=== PATIENT | female | born 1935 | race Caucasian/White ===

== ENCOUNTER → 2016-03-21 | Outpatient (CLI) | payer OTHER ==
[~2016-03-21] MED LIST: ASPI81CH2 PO; CARB25TA12 PO; CARB25TA16 PO; CARV6.25 PO; CEFD1CAP14 PO; CEFU500T16 PO; CLOP1TAB15 PO; CRFUDL PO; DOCU-94 PO; DOXY-300 PO; DOXY100C76 PO; FOLI1TAB7 PO; HMLNPUC SQ; INSU100I SC; ISR20 PO; KFL500 PO; LPT/40 PO; LYR50 PO; NVLGI/PEN SQ; ONDA4TAB46 PO; OXYC-653 PO; OXYC20TA50 PO; PANT40TA PO; PHEN-1042 PO; POLY335019 PO; PROC1TAB5 PO; RXC/5 PO; SNM/25100 PO; VENL1CAP92 PO
--- NOTE | 2016-03-21 15:27 | DIAGNOSTIC IMAGING REPORT ---
ULTRASOUND BILATERAL LOWER EXTREMITY ARTERIAL; ANKLE-BRACHIAL INDICES CLINICAL HISTORY: Bilateral leg pain. Diminished pulses. COMPARISON STUDY: No priors. TECHNIQUE: Real-time, grayscale, and color Doppler sonography of the arteries of the right and left lower extremities performed from the inguinal crease to the foot. Ankle-brachial indices are calculated. FINDINGS: Ankle-brachial indices: Right brachial pressure measures 130. Pressures in the right posterior tibial artery measure 122 for an RICHA of 0.88 and pressures in the right dorsalis pedis artery measure 156 for an RICHA of 1.12. Left brachial pressure measures 139. Pressures in the left posterior tibial artery measure 125 for an RICHA of 0.90, and pressures in the left dorsalis pedis artery measure 146 for an RICHA of 1.05. Right lower extremity: There is atherosclerotic plaque and irregularity seen throughout the arteries of the right lower extremity. There are triphasic waveforms in the right common femoral artery with velocities measuring up to 174 cm/s. The profunda femoris artery is patent with velocities measuring up to 97 cm/s. There are biphasic arterial waveforms throughout the right superficial femoral artery. Velocities proximally measure up to 121 cm/s. Focally elevated velocities are seen in the midportion measuring up to 196 cm/s. Velocities in the distal right superficial femoral artery measure up to 117 cm/s. Advanced atherosclerotic plaque is seen in the popliteal artery with velocities measuring up to 104 cm/s. There is three-vessel runoff to the foot. No elevated velocities are identified in the calf. The dorsalis pedis artery is patent with velocities measuring up to 78 cm/s. Left lower extremity: Atherosclerotic plaque and irregularity is seen throughout the arteries of the left lower extremity. There are triphasic waveforms in the left common femoral artery with velocities measuring up to 202 cm/s. There are biphasic waveforms seen throughout the superficial femoral artery with velocities measuring up to 152 cm/s. There are monophasic to biphasic waveforms in the popliteal artery with velocities measuring up to 106 cm/s. There is two-vessel runoff to the foot. There may be occlusion of the distal left peroneal artery. The left dorsalis pedis artery is patent with velocities measuring up to 55 cm/s. IMPRESSION: 1. There are focally elevated velocities within the mid right superficial femoral artery and within the left common femoral artery as above which may represent foci of stenosis. 2. Suspect occlusion of the distal left peroneal artery. 3. Ankle-brachial indices as above. Dictated: 03/21/2016 2:43 PM Transcribed: 03/21/2016 3:26 PM [facility] Electronically signed by: Mario Thomas M.D. 03/21/2016 3:29 PM Dictated Date/Time: 03/21/2016 2:43 PM
== END | disposition home or self-care (01) ==
LOC: C.ULTR 12:23
PROVIDERS: ATTEND Family Medicine
DX: M79.604 Pain in right leg (principal); M79.605 Pain in left leg; R94.39 Abnormal result of other cardiovascular function study

== ENCOUNTER → 2016-03-28 | Outpatient (CLI) | payer OTHER | END | disposition home or self-care (01) | LOC: C.LABSPEC 17:42 | PROVIDERS: ATTEND Urology | DX: Z87.440 Personal history of urinary (tract) infections (principal); R33.9 Retention of urine, unspecified ==

== ENCOUNTER → 2016-05-09 | Outpatient (CLI) | payer OTHER ==
[~2016-05-09] MED LIST changes: -OXYC-653 PO; +OXYC-739 PO
--- NOTE | 2016-05-09 11:45 | DIAGNOSTIC IMAGING REPORT ---
RENAL ULTRASOUND HISTORY: Z87.440 History of UTIR33.9 Retention of [id number] hydronephrosis. COMPARISON: Abdomen and pelvis CT 02/16/2016. FINDINGS: Right kidney: 9.5 cm. Mild to moderate hydronephrosis Left kidney: 10.9 cm. Mild to moderate hydronephrosis. Bladder: No bladder wall thickening. The bilateral ureteral jets were identified. IMPRESSION: No change in the mild to moderate bilateral hydronephrosis. However, the bilateral ureteral jets are identified. Electronically signed by: Carmine Desouza M.D. 05/09/2016 11:43 AM Dictated Date/Time: 05/09/2016 11:41 AM
== END | disposition home or self-care (01) ==
LOC: C.ULTR 11:01
PROVIDERS: ATTEND Urology
DX: N13.30 Unspecified hydronephrosis (principal); R33.9 Retention of urine, unspecified; Z87.440 Personal history of urinary (tract) infections

== ENCOUNTER 2016-08-07 11:23 | Inpatient (IN) | payer OTHER ==
[~2016-08-07] VITALS: Ht 167.6 cm; Wt 95.7 kg
[~2016-08-07 11:23] MED LIST changes: -CARB25TA16 PO; -CEFD1CAP14 PO; -CEFU500T16 PO; -CLOP1TAB15 PO; -DOXY-300 PO; -DOXY100C76 PO; -INSU100I SC; -KFL500 PO; -OXYC-739 PO; -PHEN-1042 PO; -POLY335019 PO; -PROC1TAB5 PO; -RXC/5 PO; -SNM/25100 PO
[2016-08-07 11:36] VITALS: Ht 167.6 cm; Wt 95.7 kg
[2016-08-07 12:14] LABS: BASO % 0.2 %; BASO ABS # 0.03 K/uL (0-0.2); COMPLETE YES; EOS % 1.2 %; HEMATOCRIT 42.7 % (37-47); IG% 0.3 %; LYMPH % 9.3 %; LYMPH ABS # 1.35 K/uL (1.2-3.4); MEAN CELL VOLUME 87.1 fL (80-100); MEAN CORPUSCULAR HEMOGLOBIN 28.2 pg (25-34); MEAN CORPUSCULAR HGB CONC 32.3 g/dl (32-36); MEAN PLATELET VOLUME 12.2 fL (7.4-10.4); MONO % 5.7 %; NEUT % 83.3 %; PLATELET COUNT 165 K/uL (130-400); WHITE BLOOD COUNT 14.45 K/uL (4.8-10.8)
[2016-08-07 12:16] LABS: ISTAT CREATININE 1.3 mg/dl (0.6-1.3); ISTAT IONIZED CALCIUM 1.24 mmol/l (1.12-1.32)
[2016-08-07] MEDS ORDERED: MoRPHine SULFATE 10 MG/ML CARP/VIAL IV STA (12:23)
[2016-08-07] MEDS ORDERED: ONDANSETRON INJ 2 MG/ML 2 ML VIAL IV STA (12:23)
[2016-08-07 12:35] LABS: ALT/SGPT 14 U/L (12-78); AST/SGOT 26 U/L (15-37); BLOOD UREA NITROGEN 26 mg/dl (7-18); BUN/CREATININE RATIO 18.9 (10-20); CARBON DIOXIDE 29 mmol/L (21-32); CHLORIDE 103 mmol/L (98-107); GLUCOSE 101 mg/dl (70-99); POTASSIUM 4.2 mmol/L (3.5-5.1); SODIUM 139 mmol/L (136-145)
[2016-08-07 12:37] LABS: ALB/GLOB RATIO 0.8 (0.9-2); ALKALINE PHOSPHATASE 159 U/L (45-117)
[2016-08-07] MEDS ORDERED: CEFTRIAXONE SOD INJ 2000 MG in DEXTROSE 5% 50ML IV ONE (12:45)
[2016-08-07] MEDS ORDERED: HYDROmorphone INJ 1 MG/ML SYR IV STA (13:01)
[2016-08-07 14:03] LABS: URINE APPEARANCE TURBID (CLEAR); URINE BILIRUBIN NEG (NEG); URINE COLOR ORANGE; URINE EPITHELIAL CELL AUTO 20-30 /lpf (0-5); URINE NITRITE POS (NEG); UROBILINOGEN NEG (NEG); ZZURINE CULT IF INDIC CATH YES
[2016-08-07 14:07] LABS: MANUAL MICROSCOPIC REQUIRED? NO; REVIEW REQ? YES
--- NOTE | 2016-08-07 15:02 | DIAGNOSTIC IMAGING REPORT ---
(RENAL)RETROPERITON COMP HISTORY: 80-year-old female presents with acute back pain and UTI symptoms. COMPARISON: Renal ultrasound 05/09/2016, CT abdomen and pelvis 02/16/2016. TECHNIQUE Multiple real-time sonographic images of the bilateral kidneys were obtained assessing grayscale appearance and color flow. FINDINGS: The right kidney measures 11.2 x 5.9 x 6.5 cm. There is moderate hydronephrosis of the right kidney without significant change. There is a thin-walled hypoechoic cystic appearing lesion of the superior pole right kidney, 3.8 x 2.8 x 3.3 cm without internal flow. Left kidney measures 10.5 x 6.0 x 5.5 cm. Moderate appearing hydronephrosis is again seen left kidney without significant change. Urinary bladder is collapsed with Torres catheter in place. IMPRESSION: 1. Moderate appearing bilateral hydronephrosis without significant change from comparison study dated 05/09/2016. 2. Collapsed urinary bladder with Torres catheter in place. 3. 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 Electronically signed by: Marito Grimes 08/07/2016 3:01 PM Dictated Date/Time: 08/07/2016 2:51 PM
[2016-08-07] MEDS ORDERED: INSU100I SC (17:22)
[2016-08-07] MEDS ORDERED: POLY335019 PO (17:22)
[2016-08-07] MEDS ORDERED: OXYC-653 PO (17:22)
[2016-08-07] MEDS ORDERED: RXC/5 PO (17:22)
[2016-08-07] MEDS ORDERED: DOXY-300 PO (17:22)
[2016-08-07] MEDS ORDERED: ACETAMINOPHEN 325 MG TAB PO PRN (18:00)
--- NOTE | 2016-08-07 18:02 | Medical Student: [facility] ---
Med Student History & Physical Date & Time of Service: Aug 07, 2016 at 17:26 Chief Complaint: UTI Primary Care Physician: Krishna Villanueva M.D. History of Present Illness Source: patient, family (daughter ) Ms. Bess is a 80 year old female with a PMH significant for CAD w/ 6 stents, cholecystectomy, chronic UTIs, b/l hydronephrosis, colon CA, hepatocellular CA, s/p liver ablation, DM II, diabetic neuropathy, Parkinson disease, A fib, aortic stenosis, CAD, HTN, and GERD who presented with 3 days of lower back pain and UTI symptoms. The patient has had increase urinary frequency and dysuria, but no hematuria. With this increased urinary frequency, she has had increase bowel movements. Her bowel movements are of normal consistency. Additionally, she has experienced nausea over the past couple days with no vomiting and SOB. She has been able to eat and drink. According to her daughter , the patient has been taking doxycycline for UTI prophylaxis and hasn't had a UTI in 7 months. The patient denies fevers, chills, CARROLL, chest pain, abdominal pain, constipation or diarrhea. Currently her lower b/l back pain is 7/10 and she is very nauseous. On admission, the patient was afebrile, tachycardic at 110 , hypertensive at 187/89 and sating well at 93% on room air. On admission to the ER, she was given IV Zofran 4 mg, IV Dilaudid 1 mg, IV Ceftriaxone 2g, and IV morphine 6 mg. She was found to have leukocytosis of 14.45 and an AGUS with BUN of 26 and Cr 1.40 (baseline 1.1-1.2). She was also found to have elevated protein at 8.3 with low albumin/globulin of 0.8. The patient has a history of chronic UTIs and follows with the urologist Dr. Richard at [facility] [place]. A CAT scan during a hospitalization at [facility] on 02/15 for dehydration showed b/l hydronephrosis R > L and a distended bladder. Past Medical/Surgical History Medical Problems: (1) Constipation Status: Acute (2) Dehydration Status: Acute (3) Failure of outpatient treatment Status: Acute (4) Hyperglycemia Status: Acute (5) Left sided abdominal pain Status: Acute (6) Leukocytosis Status: Acute (7) Nausea Status: Acute (8) Substernal chest pain Status: Acute (9) Urinary retention Status: Acute (10) UTI (urinary tract infection) Status: Resolved (11) UTI (urinary tract infection) Status: Acute (12) Vomiting Status: Acute (13) Weakness Status: Acute Family History Father: lung disease (occupational disease - Joe ) Mother: diabetes Sibling(s): coronary artery disease Social History Smoking Status: Never Smoker Alcohol Use: none Drug Use: none Marital Status: single Housing status: lives with family Occupational Status: retired Allergies Coded Allergies: Iodinated Diagnostic Agents (Verified Allergy, Intermediate, IV CONTRAST- HIVES, 02/16/16) Azithromycin (Verified Allergy, Mild, dizzy, nauseous (per patient), ) from allergy list supplied by PCP Dar Villanueva in [place] Ciprofloxacin (Verified Allergy, Unknown, unknown, 02/16/16) from allergy list supplied by PCP Dar Villanueva in [place] Nitrofurantoin (Verified Allergy, Unknown, unknown, 02/16/16) from allergy list supplied by PCP Dar Villanueva in [place] Sulfamethoxazole w/Trimethoprim (Verified Allergy, Unknown, patient unsure , 02/16/16) from allergy list supplied by [facility] Villanueva in [place] Acarbose (Verified Adverse Reaction, Mild, GI SYMPTOMS, 02/16/16) from allergy list supplied by [facility] Villanueva in [place] Metformin (Verified Adverse Reaction, Mild, GI SYMPTOMS, 02/16/16) from allergy list supplied by PCP Dar Villanueva in [place] Penicillins (Verified Adverse Reaction, Mild, dizzy, nausous (per patient ) tolerated zosyn [id number], 02/16/16) from allergy list supplied by PCP Dar Villanueva in [place] Troglitazone (Verified Adverse Reaction, Mild, GI SYMPTOMS, 02/16/16) from allergy list supplied by PCP Dar Villanueva in [place] Medications Aspirin (Aspirin), 81 MG PO QAM Atorvastatin (Lipitor), 40 MG PO DAILY Carbidopa/Levodopa (Sinemet 25MG/100MG), 2 TABS PO QID Carvedilol (Coreg), 6.25 MG PO AMPM Docusate Sodium (Colace), 100 MG PO BID Doxycycline (Monohydrate) (Doxycycline), 100 MG PO DAILY Folic Acid (Folvite), 1 MG PO QAM Insulin Human NPH (Humulin N), 24 UNITS SQ QAM Insulin Human NPH (Humulin N), 24 UNITS SQ QPM Insulin Lispro (Human) (Humalog), 4 UNITS SC AMPM Isosorbide Dinitrate (Isordil), 20 MG PO BID@0700,1200 Oxycodone HCl (Oxycodone HCl ER), 20 MG PO BID Oxycodone HCl (Oxycodone HCl), 5 MG PO Q6 PRN for Pain Pantoprazole (Protonix), 40 MG PO QAM Polyethylene Glycol 3350 (Miralax), 17 GM PO DAILY Pregabalin (Lyrica), 100 MG PO BID Sucralfate (Sucralfate), 1 GM PO ACHS Venlafaxine Hcl (Effexor Xr), 1 CAP PO QAM Review of Systems Constitutional: No fever, No chills Eyes: No worsening of vision ENT: No hearing loss Respiratory: + shortness of breath, No cough, No sputum Cardiovascular: No chest pain, No edema, No palpitations Abdomen: + nausea, No pain, No vomiting, No diarrhea, No constipation Genitourinary - Female: + dysuria, + urinary frequency, + hematuria, + problem reported (CVA tenderness b/l ) Neurologic: No memory loss Integumentary: No rash, No itch Physical Exam Vital Signs (24 Hours) Date Time Temp Pulse Resp B/P (MAP) Pulse Ox O2 Delivery O2 Flow Rate FiO2 08/07/16 17:03 100 14 158/65 98 Room Air 08/07/16 14:50 107 18 175/87 94 Nasal Cannula 4.0 08/07/16 13:31 109 18 195/131 96 Room Air 08/07/16 12:10 101 08/07/16 11:36 37.0 110 20 187/89 93 Room Air General Appearance: WD/WN, + mild distress Head: normocephalic, atraumatic Eyes: normal inspection, PERRL, EOMI, sclerae normal ENT: normal ENT inspection, hearing grossly normal Neck: supple, no adenopathy, thyroid normal Respiratory/Chest: lungs clear, normal breath sounds, no respiratory distress Cardiovascular: regular rate, rhythm, no edema, no gallop, normal peripheral pulses, + systolic murmur (2/6 ejection systolic murmur heard best RUSB with no radiation to carotids ) Abdomen/GI: normal bowel sounds, non tender, soft, no organomegaly Genitourinary - Female: + pertinent finding (no suprapubic tenderness ) Back: + left CVA tenderness, + right CVA tenderness Extremities/Musculoskelatal: no calf tenderness, normal capillary refill, no pedal edema Neurologic/Psych: bar hostess II-XII nml as tested, no motor/sensory deficits Skin: normal color, warm/dry, no rash Diagnostics Laboratory Results Results Past 24 Hours Test 08/07/16 11:56 08/07/16 12:00 08/07/16 13:30 08/07/16 17:01 Range/Units Bedside Lactic Acid Venous 1.24 0.90-1.70 mmol/L White Blood Count 14.45 4.8-10.8 K/uL Red Blood Count 4.90 4.2-5.4 M/uL Hemoglobin 13.8 12.0-16.0 g/dL Hematocrit 42.7 37-47 % Mean Corpuscular Volume 87.1 80-100 fL Mean Corpuscular Hemoglobin 28.2 25-34 pg Mean Corpuscular Hemoglobin Concent 32.3 32-36 g/dl Platelet Count 165 130-400 K/uL Mean Platelet Volume 12.2 7.4-10.4 fL Neutrophils (%) (Auto) 83.3 % Lymphocytes (%) (Auto) 9.3 % Monocytes (%) (Auto) 5.7 % Eosinophils (%) (Auto) 1.2 % Basophils (%) (Auto) 0.2 % Neutrophils # (Auto) 12.03 1.4-6.5 K/uL Lymphocytes # (Auto) 1.35 1.2-3.4 K/uL Monocytes # (Auto) 0.82 0.11-0.59 K/uL Eosinophils # (Auto) 0.17 0-0.5 K/uL Basophils # (Auto) 0.03 0-0.2 K/uL Bedside Hemoglobin 15.0 12.0-16.0 g/dl Bedside Hematocrit 44 37-47 % RDW Standard Deviation 46.2 36.4-46.3 fL RDW Coefficient of Variation 14.4 11.5-14.5 % Immature Granulocyte % (Auto) 0.3 % Immature Granulocyte # (Auto) 0.05 0.00-0.02 K/uL Bedside Sodium 140 135-144 mEq/L Sodium Level 139 136-145 mmol/L Bedside Potassium 4.1 3.3-5.0 mEq/L Potassium Level 4.2 3.5-5.1 mmol/L Bedside Chloride 100 101-112 mEq/L Chloride Level 103 98-107 mmol/L Carbon Dioxide Level 29 21-32 mmol/L Bedside Total CO2 28 24-31 mEq/l Anion Gap 17.0 16-25 mmol/L Bedside Blood Urea Nitrogen 27 7-18 mg/dl Blood Urea Nitrogen 26 7-18 mg/dl Creatinine 1.40 0.60-1.20 mg/dl Bedside Creatinine 1.3 0.6-1.3 mg/dl Estimated GFR () 40.5 Estimated GFR (Non- 34.9 BUN/Creatinine Ratio 18.9 10-20 Bedside Glucose (other) 107 70-99 mg/dl Random Glucose 101 70-99 mg/dl Calcium Level 10.0 8.5-10.1 mg/dl Bedside Ionized Calcium (Mario) 1.24 1.12-1.32 mmol/l Total Bilirubin 0.5 0.2-1 mg/dl Aspartate Amino Transf (AST/SGOT) 26 15-37 U/L Alanine Aminotransferase (ALT/SGPT) 14 12-78 U/L Alkaline Phosphatase 159 45-117 U/L Total Protein 8.3 6.4-8.2 gm/dl Albumin 3.7 3.4-5.0 gm/dl Globulin 4.6 2.5-4.0 gm/dl Albumin/Globulin Ratio 0.8 0.9-2 Urine Color ORANGE Urine Appearance TURBID CLEAR Urine pH 7.0 4.5-7.5 Urine Specific [place] 1.020 1.000-1.030 Urine Protein 4+ NEG Urine Glucose (UA) NEG NEG Urine Ketones NEG NEG Urine Occult Blood 3+ NEG Urine Nitrite POS NEG Urine Bilirubin NEG NEG Urine Urobilinogen NEG NEG Urine Leukocyte Esterase LARGE NEG Urine WBC (Auto) >30 0-5 /hpf Urine RBC (Auto) >30 0-4 /hpf Urine Hyaline Casts (Auto) 0 0-5 /lpf Urine Epithelial Cells (Auto) 20-30 0-5 /lpf Urine Bacteria (Auto) NEG NEG Urine Pathogenic Casts 0 /lpf Bedside Glucose 111 70-90 mg/dl Microbiology Results 08/07/16 Blood Culture, Received Pending 08/07/16 Blood Culture, Received Pending 08/07/16 Urine Culture, Received Pending Diagnostic Radiology Renal US HISTORY: 80-year-old female presents with acute back pain and UTI symptoms. COMPARISON: Renal ultrasound 05/09/2016, CT abdomen and pelvis 02/16/2016. TECHNIQUE Multiple real-time sonographic images of the bilateral kidneys were obtained assessing grayscale appearance and color flow. FINDINGS: The right kidney measures 11.2 x 5.9 x 6.5 cm. There is moderate hydronephrosis of the right kidney without significant change. There is a thin-walled hypoechoic cystic appearing lesion of the superior pole right kidney, 3.8 x 2.8 x 3.3 cm without internal flow. Left kidney measures 10.5 x 6.0 x 5.5 cm. Moderate appearing hydronephrosis is again seen left kidney without significant change. Urinary bladder is collapsed with Torres catheter in place. IMPRESSION: 1. Moderate appearing bilateral hydronephrosis without significant change from comparison study dated 05/09/2016. 2. Collapsed urinary bladder with Torres catheter in place. 3. 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 Impression Assessment and Plan Assessment: Ms. Bess is a 80 year old female with a PMH significant for CAD w / 6 stents, cholecystectomy, chronic UTIs, b/l hydronephrosis, colon CA, hepatocellular CA, s/p liver ablation, DM II, diabetic neuropathy, Parkinson disease, A fib, aortic stenosis, CAD, HTN, and GERD who presented with 3 days of lower back pain and UTI symptoms. UA coupled with CVA tenderness suggest complicated cystitis vs pyelonephritis. The patient was additionally found to have elevated protein levels and an AGUS. Plan: 1) Complicated Cystitis vs Pyelonephritis - UA showed 3 + blood, positive nitrites, high leukocyte esterase, >30 WBCs, >30 RBCs, and negative bacteria & CVA tenderness on physical exam & leukocytosis -Renal US showed b/l hydronephrosis unchanged from imaging on 05/09/16, collapsed bladder, and calyceal diverticulum or cyst superior pole of right kidney -WBC count elevated at 14.45 -urine and blood cultures pending -bladder scan pending -possible urine cytology -continue 1 g IV ceftriaxone 2) AGUS - BUN 26 & Cr 1.4 (baseline 1.1-1.2) -start IVF -renally dose medications 3) Hyperproteinemia - protein level 8.3, albumin 3.7, globulin 4.6, albumin/ globulin 0.8, most likely 2/2 to infection -consider SPEP is protein levels continue to be elevated after treatment 4) HTN -continue carvedilol 6.25 mg BID 5) Parkinson's Disease -continue Sinemet 25 mg/100mg PO daily 6) DM II -start insulin sliding scale -d/c home insulin regiment 7) Diabetic Neuropathy -continue Lyrica 50 mg BID 8) CAD -continue carvedilol 6.25 mg BID -hold Aspirin d/t hematuria -continue isosorbide dinitrate 20 mg PO BID 7) A fib -continue carvedilol 6.25 mg BID 8) GERD -continue pantoprazole 40 mg PO daily
[2016-08-07] MEDS ORDERED: GLUCOSE 10 TABS/TUBE PO PRN (18:45)
[2016-08-07] MEDS ORDERED: DEXTROSE 50% 50 ML SYR IV PRN (18:45)
[2016-08-07] MEDS ORDERED: GLUCOSE 40% GEL 15 GM TUBE PO PRN (18:45)
[2016-08-07] MEDS ORDERED: GLUCAGON FOR INJ 1 MG VIAL SQ PRN (18:45)
[2016-08-07 19:42] VITALS: BP 158/65; PULSE 100; TEMP 37; O2SAT 98
[2016-08-07] MEDS: OXYCODONE HCL 20 MG TABCR (OXYCONTIN) PO SCH (20:34)
[2016-08-07] MEDS: PREGABALIN 50 MG CAP PO SCH (20:34)
[2016-08-07 20:39] VITALS: BP 137/74; PULSE 93; TEMP 37.1; O2SAT 90
--- NOTE | 2016-08-07 20:52 | EMERGENCY ROOM VISIT NOTE ---
ED Visit Note First contact with patient: 12:18 Chief Complaint: Severe back pain. History of Present Illness: Ms. Acevedo is an 80-year-old white female who is brought into the ED via wheelchair accompanied by her daughter complaining of severe back pain. Historically patient and daughter reports that she has a history of diabetes and chronic urinary tract infections. She is currently on daily doxycycline for her urinary tract infections; daughter reports she has not had any urinary tract infection symptoms for the last 7 weeks. Patient was referred to the ED by an urgent care center in [place]. Patient reports approximately 2-3 days ago she developed urinary burning and increased urinary frequency. Over the last 2 days she has developed lumbar pain that was initially mild and increased in severity. She reports she has been using her prescribed oxycodone without relief of her discomfort. Currently she is unable to describe her pain except for that it is severe. She rates her discomfort "20" on a 0-10 scale. Her pain is nonradiating. Her pain worsens with all movement of the thoracic and lower back and moving from the lying to the sitting position and the sitting to the lying position. She has not identified any alleviating factors related to the pain. Associated with her pain and urinary symptoms she does report she has been having fevers and has been nauseated but has not vomited. Daughter also reports that she has had a decreased appetite. Patient and daughter deny lightheadedness, dizziness, skin eruptions, skin color changes, upper respiratory tract symptoms, cough, wheezing, shortness of breath, chest pain, orthopnea, diarrhea, constipation, gross hematuria, rectal bleeding, black/tarry stools. Review of Systems: As noted above in history of present illness. At least body systems were reviewed and found to be negative as noted above. Past Medical History: As noted above, coronary artery disease with 6 stent placements, type 2 diabetes with peripheral neuropathy, Parkinson's disease, atrial fibrillation, aortic stenosis, hypertension, GERD, colon cancer, liver cancer, status post cholecystectomy, liver ablation. Current Medications: Medications Dose Route/Sig Max Daily Dose Days Date Category Dose Instructions Oxycodone HCl 5 Mg Tab 5 Mg PO Q6 PRN 08/07/16 Reported Oxycodone HCl ER (Oxycodone HCl) 20 Mg Tab 20 Mg PO BID 08/07/16 Reported Miralax (Polyethylene Glycol 3350) 1 17 Gm PO DAILY 08/07/16 Reported Doxycycline (Doxycycline (Monohydrate)) 100 Mg Cap 100 Mg PO DAILY 08/07/16 Reported Humalog (Insulin Lispro (Human)) 100 Unit/Ml Inj 4 Units SC AMPM 08/07/16 Reported Lipitor (Atorvastatin) 40 Mg Tab 40 Mg PO DAILY 02/16/16 Reported Isordil (Isosorbide Dinitrate) 20 Mg Tab 20 Mg PO BID@0700,1200 30 11/24/15 Rx Humulin N (Insulin Human NPH) 1,000 Units/10 Ml Inj 24 Units SQ QPM 11/22/15 Reported Humulin N (Insulin Human NPH) 1,000 Units/10 Ml Inj 24 Units SQ QAM 11/22/15 Reported Colace (Docusate Sodium) 100 Mg Cap 100 Mg PO BID 11/22/15 Reported Lyrica (Pregabalin) 50 Mg Cap 100 Mg PO BID 11/22/15 Reported Sucralfate 1 Gm/10 Ml Susp 1 Gm PO ACHS 7 06/16/15 Rx Sinemet 25MG/100MG (Carbidopa/Levodopa) Tab 2 Tabs PO QID 06/09/15 Reported ADMINISTRATION TIMES 8AM,12,4PM,8PM Coreg (Carvedilol) 6.25 Mg Tab 6.25 Mg PO AMPM 06/09/15 Reported Aspirin 81 Mg Chw 81 Mg PO QAM 11/08/14 Reported Protonix (Pantoprazole Sodium) 40 Mg Tab 40 Mg PO QAM 11/08/14 Reported Effexor Xr (Venlafaxine Hcl) 37.5 Mg Cap 1 Cap PO QAM 30 11/08/14 Reported Folvite (Folic Acid) 1 Mg Tab 1 Mg PO QAM 11/08/14 Reported Allergies to Medications: Nitrofurantoin, Bactrim, ciprofloxacin, metformin, azithromycin, acarbose, troglitazone, penicillin, IV contrast. Social History: Patient is not employed; she feels safe in her home environment ; she denies tobacco use. Physical Examination: Vital Signs: Date Time Temp Pulse Resp B/P (MAP) Pulse Ox O2 Delivery O2 Flow Rate FiO2 08/07/16 14:50 107 18 175/87 94 Nasal Cannula 4.0 08/07/16 13:31 109 18 195/131 96 Room Air 08/07/16 12:10 101 08/07/16 11:36 37.0 110 20 187/89 93 Room Air GENERAL: 80-year-old female in moderate distress due to pain, chronically ill- appearing, afebrile and hemodynamically stable. NEUROLOGICAL: Awake, alert and oriented to person, place and time. Answering questions appropriately and following commands. Good hand eye coordination. Cranial nerves II through XII grossly intact. SKIN: Warm, dry and pink. No soft tissue eruptions or trauma noted. HEENT: Atraumatic and normocephalic. PERRLA. Sclera white and conjunctiva pink. No drainage from naris. Oral cavity moist and pink. Pharynx is nonerythematous or edematous. Speech normal. No lymphadenopathy. Trachea midline. No jugular venous distention. BACK: I difficulty assessing the patient's back into her pain and her inability to wanting to sit up for examination. On palpation of her bony spine I did not perceive any cervical or thoracic tenderness. She did have full range of motion of the cervical spine. I attempted to percuss the cervical CVA areas but were unable due to her pain. Range of motion and straight leg tests were not available to be performed due to patient's discomfort. THORAX: Lungs sounds are clear to auscultation and equal bilaterally with symmetrical chest wall. No wheezing, rales or rhonchi. No crepitus, tenderness , subcutaneous air or deformities noted. HEART: Regular rate and rhythm. No gallops, rubs or murmurs are appreciated. ABDOMEN: Obese and soft with moderate tenderness over the suprapubic area. Decreased bowel sounds in all quadrants. No guarding, rigidity or organomegaly. EXTREMITIES: Moves all extremities well on command and with purpose. All distal neurovascular statuses are intact and equal bilaterally. No calf tenderness or cords. ED Course: Patient is assessed as noted above. Patient's medication list was reviewed. Laboratory Testing: Test 08/07/16 11:56 08/07/16 12:00 08/07/16 13:30 08/07/16 17:01 Range/Units Bedside Lactic Acid Venous 1.24 0.90-1.70 mmol/L White Blood Count 14.45 4.8-10.8 K/uL Red Blood Count 4.90 4.2-5.4 M/uL Hemoglobin 13.8 12.0-16.0 g/dL Hematocrit 42.7 37-47 % Mean Corpuscular Volume 87.1 80-100 fL Mean Corpuscular Hemoglobin 28.2 25-34 pg Mean Corpuscular Hemoglobin Concent 32.3 32-36 g/dl Platelet Count 165 130-400 K/uL Mean Platelet Volume 12.2 7.4-10.4 fL Neutrophils (%) (Auto) 83.3 % Lymphocytes (%) (Auto) 9.3 % Monocytes (%) (Auto) 5.7 % Eosinophils (%) (Auto) 1.2 % Basophils (%) (Auto) 0.2 % Neutrophils # (Auto) 12.03 1.4-6.5 K/uL Lymphocytes # (Auto) 1.35 1.2-3.4 K/uL Monocytes # (Auto) 0.82 0.11-0.59 K/uL Eosinophils # (Auto) 0.17 0-0.5 K/uL Basophils # (Auto) 0.03 0-0.2 K/uL Bedside Hemoglobin 15.0 12.0-16.0 g/dl Bedside Hematocrit 44 37-47 % RDW Standard Deviation 46.2 36.4-46.3 fL RDW Coefficient of Variation 14.4 11.5-14.5 % Immature Granulocyte % (Auto) 0.3 % Immature Granulocyte # (Auto) 0.05 0.00-0.02 K/uL Bedside Sodium 140 135-144 mEq/L Sodium Level 139 136-145 mmol/L Bedside Potassium 4.1 3.3-5.0 mEq/L Potassium Level 4.2 3.5-5.1 mmol/L Bedside Chloride 100 101-112 mEq/L Chloride Level 103 98-107 mmol/L Carbon Dioxide Level 29 21-32 mmol/L Bedside Total CO2 28 24-31 mEq/l Anion Gap 17.0 16-25 mmol/L Bedside Blood Urea Nitrogen 27 7-18 mg/dl Blood Urea Nitrogen 26 7-18 mg/dl Creatinine 1.40 0.60-1.20 mg/dl Bedside Creatinine 1.3 0.6-1.3 mg/dl Estimated GFR () 40.5 Estimated GFR (Non- 34.9 BUN/Creatinine Ratio 18.9 10-20 Bedside Glucose (other) 107 70-99 mg/dl Random Glucose 101 70-99 mg/dl Calcium Level 10.0 8.5-10.1 mg/dl Bedside Ionized Calcium (Mario) 1.24 1.12-1.32 mmol/l Total Bilirubin 0.5 0.2-1 mg/dl Aspartate Amino Transf (AST/SGOT) 26 15-37 U/L Alanine Aminotransferase (ALT/SGPT) 14 12-78 U/L Alkaline Phosphatase 159 45-117 U/L Total Protein 8.3 6.4-8.2 gm/dl Albumin 3.7 3.4-5.0 gm/dl Globulin 4.6 2.5-4.0 gm/dl Albumin/Globulin Ratio 0.8 0.9-2 Urine Color ORANGE Urine Appearance TURBID CLEAR Urine pH 7.0 4.5-7.5 Urine Specific [place] 1.020 1.000-1.030 Urine Protein 4+ NEG Urine Glucose (UA) NEG NEG Urine Ketones NEG NEG Urine Occult Blood 3+ NEG Urine Nitrite POS NEG Urine Bilirubin NEG NEG Urine Urobilinogen NEG NEG Urine Leukocyte Esterase LARGE NEG Urine WBC (Auto) >30 0-5 /hpf Urine RBC (Auto) >30 0-4 /hpf Urine Hyaline Casts (Auto) 0 0-5 /lpf Urine Epithelial Cells (Auto) 20-30 0-5 /lpf Urine Bacteria (Auto) NEG NEG Urine Pathogenic Casts 0 /lpf Bedside Glucose 111 70-90 mg/dl Blood Culture: Pending Urine Culture: Pending Renal Ultrasound: Was reviewed by myself and read by the radiologist showing moderate appearing bilateral hydronephrosis without significant change from previous study, collapsed uterine bladder due to Torres catheter insertion, or calyceal diverticulum/cyst in the superior wall of the right kidney. Patient was hydrated with normal saline and initially received 6 mg of morphine IV and 4 mg of Zofran IV. On reassessment patient reports she was still having severe pain and rated her discomfort 10/10 and she was given 1 mg of the Dilaudid IV. Patient's case was consulted with the ED pharmacist who recommended that the patient receives antibiotic coverage in the form of 2 g of ceftriaxone IV. Patient was reassessed multiple times reported a significant decrease in her pain after she received the Dilaudid and now rates her discomfort 5/10. Patient's case was reviewed with Dr. Garcia; she independently assessed the patient we agreed on diagnostic approach, chilling, disposition and plan. Patient's case was consulted with case management and Dr. Pugh, hospitalist, for medical observation/admission. Patient daughter were educated about today's findings. Clinical Impression: Acute pyelonephritis. Elevated BUN and creatinine. Stable hydronephrosis. Decision-Making: Initially my differential diagnosis I considered pyelonephritis , kidney stone, pancreatitis, perforated viscus, aortic dissection, musculoskeletal pain and other causes. Disposition and Plan: Patient to be brought in the hospital by the hospital's medical observation/admission; please see their notes and orders for final disposition and plan.
[2016-08-07] MEDS: CARVEDILOL 6.25 MG TAB PO SCH (21:51)
[2016-08-07] MEDS: CARBIDOPA/LEVODOPA 25/100MG TAB PO SCH (21:52)
[2016-08-07] MEDS: DOCUSATE SODIUM 100 MG CAP PO SCH (21:52)
[2016-08-07] MEDS: INSULIN HUMAN NPH SQ SCH (21:58)
[2016-08-07] MEDS: INSULIN ASPART 100 UNITS/ML 3 ML PEN SC SCH (21:59)
[2016-08-08] VITALS (9 sets, daily range): BP systolic 78–122; BP diastolic 42–75; PULSE 84–95; TEMP 36.5–37; O2SAT 86–95
[2016-08-08] MEDS: ISOSORBIDE DINITRATE 20 MG TAB PO SCH ×2 (06:18→13:13)
[2016-08-08] MEDS: DOCUSATE SODIUM 100 MG CAP PO SCH ×2 (07:21→20:16)
[2016-08-08] MEDS: ATORVASTATIN 20 MG TAB PO SCH (07:22)
[2016-08-08] MEDS: CARVEDILOL 6.25 MG TAB PO SCH ×2 (07:22→20:16)
[2016-08-08] MEDS: VENLAFAXINE HCL XR 37.5 MG CAPXR PO SCH (07:24)
[2016-08-08] MEDS: POLYETHYLENE (MIRALAX) 17 GM PACK PO SCH (07:24)
[2016-08-08] MEDS: CARBIDOPA/LEVODOPA 25/100MG TAB PO SCH ×4 (07:25→20:15)
[2016-08-08] MEDS: PANTOprazole SOD 40 MG TAB PO SCH (07:25)
[2016-08-08] MEDS: OXYCODONE HCL 20 MG TABCR (OXYCONTIN) PO SCH ×2 (07:33→20:14)
[2016-08-08] MEDS: PREGABALIN 50 MG CAP PO SCH ×2 (07:33→20:14)
--- NOTE | 2016-08-08 07:51 | History and Physical ---
History & Physical Date & Time of Service: Aug 08, 2016 at 07:36. The patient was examined on 08/07/2016 Chief Complaint: Gross Hematuria, Recurrent Urinary Tract Infection Primary Care Physician: Krishna Villanueva M.D. History of Present Illness Source: patient The patient is an 80-year-old female with a past medical history significant for coronary disease with 6/10, chronic UTIs with bilateral hydronephrosis, colon cancer, hepatocellular cancer status post liver ablation, diabetes mellitus with neuropathy, Parkinson's disease, atrial fibrillation, and aortic stenosis, who presents emergency department with 3 days of lower back pain and urinary frequency and dysuria. She denies blood in urine or stool. She does have increased frequency of bowel movements. She has nausea, without vomiting. Her daughter reports she's been taking doxycycline for UTI prophylaxis and has not had a urinary tract infection the past 7 months. She follows with Dr. Richard from [place] [facility] due to recurrent and chronic urinary tract infections. She has been generally fatigued and weak and has had difficulty walking. Past Medical/Surgical History Medical Problems: (1) Atrial fibrillation Permanent Comment: per old records Status: Chronic (2) Chronic pain syndrome Permanent Comment: arthritis + neuropathy Status: Chronic (3) Coronary artery disease Permanent Comment: s/p PCI ? [place] Status: Chronic (4) Diabetes mellitus, type 2 Status: Chronic (5) Diabetic neuropathy Status: Chronic (6) GERD (gastroesophageal reflux disease) Status: Chronic (7) History liver mass Permanent Comment: ? pathology Status: Chronic (8) Hypertension Status: Chronic (9) Parkinson's disease Status: Chronic (10) Recurrent urinary tract infection Status: Chronic (11) Status post resection liver mass Permanent Comment: ? pathology Status: Chronic (12) UTI (urinary tract infection) Status: Resolved Surgical Problems: (1) Status post cardiac catheterization Status: Chronic (2) Status post cholecystectomy Status: Chronic (3) Status post coronary artery stent placement Status: Chronic Family History Cancer SISTER SISTER Diabetes mellitus MOTHER Lung disease FATHER Myocardial infarction BROTHER BROTHER Tuberculosis Social History Smoking Status: Never Smoker Alcohol Use: none Drug Use: none Marital Status: single Housing status: lives with family Occupational Status: retired Multi-Drug Resistant Organisms History of MDRO: No Allergies Coded Allergies: Iodinated Diagnostic Agents (Verified Allergy, Intermediate, IV CONTRAST- HIVES, 02/16/16) Azithromycin (Verified Allergy, Mild, dizzy, nauseous (per patient), ) from allergy list supplied by [facility]ue[facility] in [place] Ciprofloxacin (Verified Allergy, Unknown, unknown, 02/16/16) from allergy list supplied by [facility] in [place] Nitrofurantoin (Verified Allergy, Unknown, unknown, 02/16/16) from allergy list supplied by [facility] in [place] Sulfamethoxazole w/Trimethoprim (Verified Allergy, Unknown, patient unsure , 02/16/16) from allergy list supplied by [facility] in [place] Acarbose (Verified Adverse Reaction, Mild, GI SYMPTOMS, 02/16/16) from allergy list supplied by [facility] in [place] Metformin (Verified Adverse Reaction, Mild, GI SYMPTOMS, 02/16/16) from allergy list supplied by [facility] in [place] Penicillins (Verified Adverse Reaction, Mild, dizzy, nausous (per patient ) tolerated zosyn [id number], 02/16/16) from allergy list supplied by [facility] in [place] Troglitazone (Verified Adverse Reaction, Mild, GI SYMPTOMS, 02/16/16) from allergy list supplied by [facility] in [place] Home Medications Scheduled Aspirin (Aspirin), 81 MG PO QAM Atorvastatin (Lipitor), 40 MG PO DAILY Carbidopa/Levodopa (Sinemet 25MG/100MG), 2 TABS PO QID Carvedilol (Coreg), 6.25 MG PO AMPM Docusate Sodium (Colace), 100 MG PO BID Doxycycline (Monohydrate) (Doxycycline), 100 MG PO DAILY Folic Acid (Folvite), 1 MG PO QAM Insulin Human NPH (Humulin N), 24 UNITS SQ QAM Insulin Human NPH (Humulin N), 24 UNITS SQ QPM Insulin Lispro (Human) (Humalog), 4 UNITS SC AMPM Isosorbide Dinitrate (Isordil), 20 MG PO BID@0700,1200 Oxycodone HCl (Oxycodone HCl ER), 20 MG PO BID Pantoprazole (Protonix), 40 MG PO QAM Polyethylene Glycol 3350 (Miralax), 17 GM PO DAILY Pregabalin (Lyrica), 100 MG PO BID Sucralfate (Sucralfate), 1 GM PO ACHS Venlafaxine Hcl (Effexor Xr), 1 CAP PO QAM Scheduled PRN Oxycodone HCl (Oxycodone HCl), 5 MG PO Q6 PRN for Pain Review of Systems The patient denies chest pain, palpitations, shortness of breath, cough, sore throat, fevers, chills, sweats, vomiting, abdominal pain, pelvic pain, blood in urine or stool, abnormal bruising or bleeding, focal weakness, numbness or tingling in arms or legs, night sweats. The review of systems is otherwise negative other than for that already noted above, and at least 10 systems have been reviewed. Physical Exam Vital Signs Date Time Temp Pulse Resp B/P (MAP) Pulse Ox O2 Delivery O2 Flow Rate FiO2 08/08/16 07:25 36.5 90 20 92/57 (69) 93 Room Air 08/08/16 00:01 36.6 95 18 119/65 (83) 95 Room Air 08/08/16 00:00 Room Air 08/07/16 20:39 37.1 93 18 137/74 (95) 90 Room Air 08/07/16 19:42 37.0 100 14 158/65 98 Room Air 08/07/16 17:03 100 14 158/65 98 Room Air 08/07/16 14:50 107 18 175/87 94 Nasal Cannula 4.0 08/07/16 13:31 109 18 195/131 96 Room Air 08/07/16 12:10 101 08/07/16 11:36 37.0 110 20 187/89 93 Room Air The patient is awake, alert and oriented 3, normocephalic and atraumatic, looks fatigued and in mild to moderate pain as she attempts to sit up at bedside. HEENT--PERRL, EOMI, mucous membranes and oropharynx dry. Neck--supple, no JVD or bruits, thyroid normal, trachea midline, no adenopathy. Heart--normal S1 and S2, no extra beats, no murmurs, rubs or gallops. Lungs--clear bilaterally but diminished throughout, no respiratory distress, no accessory muscle use. Abdomen--normal bowel sounds and soft, nontender and nondistended, no hernias or masses, no organomegaly. Extremities--no cyanosis, clubbing or edema. There are good distal pulses b/l. Dermatologic--normal skin turgor, normal color, warm and dry, no abnormal lymph nodes, no rash. Neurologic--cranial nerves II through XII grossly intact. Rheumatologic--generalized arthritis limits movements. Psychiatric--normal affect. Diagnostics Laboratory Results Results Past 24 Hours Test 08/07/16 11:56 08/07/16 12:00 08/07/16 13:30 08/07/16 17:01 Range/Units Bedside Lactic Acid Venous 1.24 0.90-1.70 mmol/L White Blood Count 14.45 4.8-10.8 K/uL Red Blood Count 4.90 4.2-5.4 M/uL Hemoglobin 13.8 12.0-16.0 g/dL Hematocrit 42.7 37-47 % Mean Corpuscular Volume 87.1 80-100 fL Mean Corpuscular Hemoglobin 28.2 25-34 pg Mean Corpuscular Hemoglobin Concent 32.3 32-36 g/dl Platelet Count 165 130-400 K/uL Mean Platelet Volume 12.2 7.4-10.4 fL Neutrophils (%) (Auto) 83.3 % Lymphocytes (%) (Auto) 9.3 % Monocytes (%) (Auto) 5.7 % Eosinophils (%) (Auto) 1.2 % Basophils (%) (Auto) 0.2 % Neutrophils # (Auto) 12.03 1.4-6.5 K/uL Lymphocytes # (Auto) 1.35 1.2-3.4 K/uL Monocytes # (Auto) 0.82 0.11-0.59 K/uL Eosinophils # (Auto) 0.17 0-0.5 K/uL Basophils # (Auto) 0.03 0-0.2 K/uL Bedside Hemoglobin 15.0 12.0-16.0 g/dl Bedside Hematocrit 44 37-47 % RDW Standard Deviation 46.2 36.4-46.3 fL RDW Coefficient of Variation 14.4 11.5-14.5 % Immature Granulocyte % (Auto) 0.3 % Immature Granulocyte # (Auto) 0.05 0.00-0.02 K/uL Bedside Sodium 140 135-144 mEq/L Sodium Level 139 136-145 mmol/L Bedside Potassium 4.1 3.3-5.0 mEq/L Potassium Level 4.2 3.5-5.1 mmol/L Bedside Chloride 100 101-112 mEq/L Chloride Level 103 98-107 mmol/L Carbon Dioxide Level 29 21-32 mmol/L Bedside Total CO2 28 24-31 mEq/l Anion Gap 17.0 16-25 mmol/L Bedside Blood Urea Nitrogen 27 7-18 mg/dl Blood Urea Nitrogen 26 7-18 mg/dl Creatinine 1.40 0.60-1.20 mg/dl Bedside Creatinine 1.3 0.6-1.3 mg/dl Estimated GFR () 40.5 Estimated GFR (Non- 34.9 BUN/Creatinine Ratio 18.9 10-20 Bedside Glucose (other) 107 70-99 mg/dl Random Glucose 101 70-99 mg/dl Calcium Level 10.0 8.5-10.1 mg/dl Bedside Ionized Calcium (Mario) 1.24 1.12-1.32 mmol/l Total Bilirubin 0.5 0.2-1 mg/dl Aspartate Amino Transf (AST/SGOT) 26 15-37 U/L Alanine Aminotransferase (ALT/SGPT) 14 12-78 U/L Alkaline Phosphatase 159 45-117 U/L Total Protein 8.3 6.4-8.2 gm/dl Albumin 3.7 3.4-5.0 gm/dl Globulin 4.6 2.5-4.0 gm/dl Albumin/Globulin Ratio 0.8 0.9-2 Urine Color ORANGE Urine Appearance TURBID CLEAR Urine pH 7.0 4.5-7.5 Urine Specific Line [place] 1.020 1.000-1.030 Urine Protein 4+ NEG Urine Glucose (UA) NEG NEG Urine Ketones NEG NEG Urine Occult Blood 3+ NEG Urine Nitrite POS NEG Urine Bilirubin NEG NEG Urine Urobilinogen NEG NEG Urine Leukocyte Esterase LARGE NEG Urine WBC (Auto) >30 0-5 /hpf Urine RBC (Auto) >30 0-4 /hpf Urine Hyaline Casts (Auto) 0 0-5 /lpf Urine Epithelial Cells (Auto) 20-30 0-5 /lpf Urine Bacteria (Auto) NEG NEG Urine Pathogenic Casts 0 /lpf Bedside Glucose 111 70-90 mg/dl Test 08/07/16 20:46 Range/Units Bedside Glucose 201 70-90 mg/dl Microbiology Results 08/07/16 Blood Culture, Received Pending 08/07/16 Blood Culture, Received Pending 08/07/16 Urine Culture, Received Pending Diagnostic Radiology Patient Name: SIMEON RASMUSSEN Unit Number: [id number] Dictated: 08/07/161450 Transcribed: 08/07/161455 JRB Printed Date/Time: [~ rep prt dt]/[~ rep prt tm] [~ rep ct labl] - [~ rep ct ivnm] [facility] [place] [address] Dictated: 08/07/161450 Transcribed: 08/07/161455 JRB Printed Date/Time: [~ rep prt dt]/[~ rep prt tm] [~ rep ct labl] - [~ rep ct ivnm] (RENAL)RETROPERITON COMP HISTORY: 80-year-old female presents with acute back pain and UTI symptoms. COMPARISON: Renal ultrasound 05/09/2016, CT abdomen and pelvis 02/16/2016. TECHNIQUE Multiple real-time sonographic images of the bilateral kidneys were obtained assessing grayscale appearance and color flow. FINDINGS: The right kidney measures 11.2 x 5.9 x 6.5 cm. There is moderate hydronephrosis of the right kidney without significant change. There is a thin-walled hypoechoic cystic appearing lesion of the superior pole right kidney, 3.8 x 2.8 x 3.3 cm without internal flow. Left kidney measures 10.5 x 6.0 x 5.5 cm. Moderate appearing hydronephrosis is again seen left kidney without significant change. Urinary bladder is collapsed with Torres catheter in place. IMPRESSION: 1. Moderate appearing bilateral hydronephrosis without significant change from comparison study dated 05/09/2016. 2. Collapsed urinary bladder with Torres catheter in place. 3. 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 Electronically signed by: Marito Grimes 08/07/2016 3:01 PM Dictated Date/Time: 08/07/2016 2:51 PM The status of this report is Signed. Draft = Not yet reviewed or approved by Radiologist. Signed = Reviewed and approved by Radiologist. <AttendingPhy></AttendingPhy> <FamilyPhy>Krishna Villanueva M.D.</FamilyPhy> < PrimaryPhy>Kay, Krishna L.,M.D.</PrimaryPhy> <UnitNumber>[id number]</UnitNumber > <VisitNumber>[id number]</VisitNumber> <PatientName>SIMEON RASMUSSEN</ PatientName> <DateOfBirth>1935</DateOfBirth> <Location>[facility]</Location> < ServiceDate>08/07/16</ServiceDate> <MNE>ESINDI</MNE> <OrderingPhy>PheZoya causey S DO</OrderingPhy> <OrderingPhyMNE>f rep ord dr le</OrderingPhyMNE> < DictatingPhyMNE>f rep dict dr le</DictatingPhyMNE> <CCListMNE>f rep ct samme</ CCListMNE> <AdmittingPhyMNE>f pt admit dr le</AdmittingPhyMNE> <AttendingPhyMNE >f pt attend dr le</AttendingPhyMNE> <ConsultingPhyMNE>f pt consult dr le</ConsultingPhyMNE> <FamilyPhyMNE>f pt fam dr le</FamilyPhyMNE> <OtherPhyMNE>f pt other dr le</OtherPhyMNE> < PrimaryPhyMNE>f pt prim care dr le</PrimaryPhyMNE> <ReferringPhyMNE>f pt referring dr le</ReferringPhyMNE> Impression Assessment and Plan Recurrent UTI/bilateral hydronephrosis--patient has been on doxycycline orally for prophylaxis for past 7 months successfully until the past [address] on ceftriaxone 1 g IV daily, making note of her multiple allergies. We' ll follow urine culture and sensitivity results. She has had an extensive workup in the past pneumonia and he ended [place]. CAD/hypertension/aortic stenosis/atrial fibrillation--continue Isordil 20 mg by mouth twice a day, aspirin 81 mg by mouth every morning chewable, and Coreg 6.25 mg by mouth twice a day. Diabetes mellitus--continue Humulin N 24 units subcutaneous every morning and 24 units subcutaneous every afternoon and Humalog 4 units subcutaneous twice a day. Place on Accu-Cheks before meals and at bedtime. The daughter has made it clear that she wants her mother to be on her usual dosing as she oftentimes goes up into the high range she doesn't get her completely standard dosing. Hyperlipidemia--continue atorvastatin 40 mg by mouth daily. Parkinson's--continue Sinemet 25/100, 2 tabs by mouth 4 times a day. GERD--continue pantoprazole 40 mg by mouth every morning, and sucralfate 1 g by mouth before meals and at bedtime. Depression--continue Effexor XR 37.5 mg by mouth every morning. Diabetic peripheral neuropathy--continue Lyrica 100 mg by mouth twice a day. Chronic pain management-- continue oxycodone ER 20 mg by mouth twice a day and oxycodone 5 mg by mouth every 6 hours when necessary. Level of Care Med/Surg Advanced Directives Existing Advance Directive: No Existing Living Will: Yes Existing Power of Provisioning Specialist: Yes Resuscitation Status FULL RESUSCITATION VTE Prophylaxis VTE Risk Assessment Done? Y/N: Yes Risk Level: Moderate Given or contraindicated: SCD's
[2016-08-08] MEDS: INSULIN HUMAN NPH SQ SCH ×2 (08:46→20:18)
[2016-08-08] MEDS: INSULIN ASPART 100 UNITS/ML 3 ML PEN SC SCH ×2 (08:46→20:17)
--- NOTE | 2016-08-08 09:05 | DIAGNOSTIC IMAGING REPORT ---
ULTRASOUND OF THE BLADDER CLINICAL HISTORY: Urinary tract infection. Clinical concern for bladder mass. COMPARISON STUDY: Pelvic CT dated 02/16/2016. Renal ultrasound dated 08/07/2016. FINDINGS: Real-time, grayscale, and color flow sonography of the bladder is performed. The bladder is partially decompressed around a Torres catheter. There is no sonographic evidence of bladder wall thickening or bladder mass lesion. The distal ureters appear mildly dilated measuring up to 9 mm. Ureteral jets were noted. IMPRESSION: 1. The bladder was partially decompressed around a Torres catheter. 2. There is no sonographic evidence of bladder wall thickening or mass lesion. 3. Ureteral jets were identified. 4. The distal ureters appear mildly dilated. Electronically signed by: Mario Thomas M.D. 08/08/2016 9:03 AM Dictated Date/Time: 08/08/2016 9:01 AM
[2016-08-08 10:00] LABS: BLOOD UREA NITROGEN 30 mg/dl (7-18); BUN/CREATININE RATIO 23.3 (10-20); CALCIUM 8.8 mg/dl (8.5-10.1); CARBON DIOXIDE 31 mmol/L (21-32); CHLORIDE 104 mmol/L (98-107); GLUCOSE 182 mg/dl (70-99); POTASSIUM 4.4 mmol/L (3.5-5.1); SODIUM 139 mmol/L (136-145)
--- NOTE | 2016-08-08 11:43 | Hospitalist Progress Note ---
Hospitalist Progress Note Date of Service Aug 08, 2016. Subjective Pt evaluation today including: conversation w/ patient, physical exam, chart review, lab review, review of studies, review of inpatient medication list Voiding: zhang catheter in place (draining gross hematuria ) Patient admits to continued lower back pain, suprapubic pain, dysuria. Symptoms are similar to past UTIs, but more intense. She follows w/ Dr. Richard- has been on chronic suppressive therapy (Doxycycline ) for recurrent UTIs. Prior to this, last UTI was about 7 months ago. Eating and drinking OK. Patient denies any fever, chills, sweats, lightheadedness, dizziness, vision changes, CP, palpitations, edema, SOB, wheezing, cough, nausea, vomiting, diarrhea, melena, numbness/tingling, weakness, anxiety/depression, active bleeding, or new skin discoloration/changes. Medications Current Inpatient Medications Medications (Trade) Dose Ordered Sig/Nadege Route Start Time Stop Time Status Last Admin Dose Admin Acetaminophen (Tylenol Tab) 650 mg Q4H PRN PO 08/07/16 18:00 09/06/16 17:59 Atorvastatin Calcium (Lipitor Tab) 40 mg DAILY PO 08/08/16 08:00 09/07/16 08:59 08/08/16 07:22 40 MG Carbidopa/Levodopa (Sinemet 25/ 100MG Tab) 2 tab 0800,1200,1600,2000 PO 08/07/16 20:00 09/06/16 19:59 08/08/16 07:25 2 TAB Carvedilol (Coreg Tab) 6.25 mg BID PO 08/07/16 20:17 09/06/16 20:59 08/08/16 07:22 6.25 MG Docusate Sodium (coLACE CAP) 100 mg BID PO 08/07/16 20:17 09/06/16 20:59 08/08/16 07:21 100 MG Folic Acid (Folvite Tab) 1 mg QAM PO 08/08/16 08:00 09/07/16 08:59 08/08/16 07:21 1 MG Insulin Human NPH (novoLIN-N NPH) 24 units QAM SQ 08/08/16 08:00 09/07/16 08:59 08/08/16 08:46 24 UNITS Insulin Human NPH (novoLIN-N NPH) 24 units QPM SQ 08/07/16 21:00 09/06/16 20:59 08/07/16 21:58 24 UNITS Insulin Aspart (novoLOG ASPART) 4 units BID SC 08/07/16 20:17 09/06/16 20:59 08/08/16 08:46 4 UNITS Isosorbide Dinitrate (Isordil Tab) 20 mg BID@0700,1200 PO 08/08/16 07:00 09/07/16 06:59 08/08/16 06:18 20 MG Oxycodone HCl (Oxycontin Tab) 20 mg BID PO 08/07/16 20:17 08/21/16 20:59 08/08/16 07:33 20 MG Pantoprazole Sodium (Protonix Tab) 40 mg QAM PO 08/08/16 08:00 09/07/16 08:59 08/08/16 07:25 40 MG Pregabalin (Lyrica Cap) 100 mg BID PO 08/07/16 20:17 09/06/16 20:59 08/08/16 07:33 100 MG Venlafaxine HCl (effeXOR EXTENDED REL CAP) 37.5 mg QAM PO 08/08/16 08:00 09/07/16 08:59 08/08/16 07:24 37.5 MG Polyethylene (Miralax Powder Packet) 17 gm DAILY PO 08/08/16 08:00 09/07/16 08:59 08/08/16 07:24 17 GM Ceftriaxone Sodium 1 gm/ Dextrose 50 ml @ 100 mls/hr Q24H IV 08/08/16 14:00 08/17/16 13:59 Glucose (Glucose 40% Gel) 15-30 GRAMS 15 GRAMS... UD PRN PO 08/07/16 18:45 09/06/16 18:44 Glucose (Glucose Chew Tab) 4-8 Tablets 4 Tabl... UD PRN PO 08/07/16 18:45 09/06/16 18:44 Dextrose (Dextrose 50% 50ML Syringe) 25-50ML OF 50% DW IV FOR... UD PRN IV 08/07/16 18:45 09/06/16 18:44 Glucagon (Glucagon Inj) 1 mg UD PRN SQ 08/07/16 18:45 09/06/16 18:44 Objective Vital Signs Date Time Temp Pulse Resp B/P (MAP) Pulse Ox O2 Delivery O2 Flow Rate FiO2 08/08/16 08:00 93 Room Air 4.0 08/08/16 07:25 36.5 90 20 92/57 (69) 93 Room Air 08/08/16 00:01 36.6 95 18 119/65 (83) 95 Room Air 08/08/16 00:00 Room Air 08/07/16 20:39 37.1 93 18 137/74 (95) 90 Room Air 08/07/16 19:42 37.0 100 14 158/65 98 Room Air 08/07/16 17:03 100 14 158/65 98 Room Air 08/07/16 14:50 107 18 175/87 94 Nasal Cannula 4.0 08/07/16 13:31 109 18 195/131 96 Room Air 08/07/16 12:10 101 08/07/16 11:36 37.0 110 20 187/89 93 Room Air Physical Exam General Appearance: no apparent distress, + obese Eyes: normal inspection, PERRL ENT: hearing grossly normal Neck: supple Respiratory/Chest: lungs clear, no respiratory distress, no accessory muscle use Cardiovascular: regular rate, rhythm, + systolic murmur Abdomen: normal bowel sounds, soft, + tenderness (mild ttp of suprpubic region ) Extremities: no pedal edema, no calf tenderness Neurologic/Psychiatric: alert, normal mood/affect, + sensory deficit (chronic neuropathy of bilateral lower extremities ) Skin: normal color, warm/dry, no rash Laboratory Results Last 24 Hours Test 08/07/16 11:56 08/07/16 12:00 08/07/16 13:30 08/07/16 17:01 Bedside Lactic Acid Venous 1.24 mmol/L White Blood Count 14.45 K/uL Red Blood Count 4.90 M/uL Hemoglobin 13.8 g/dL Hematocrit 42.7 % Mean Corpuscular Volume 87.1 fL Mean Corpuscular Hemoglobin 28.2 pg Mean Corpuscular Hemoglobin Concent 32.3 g/dl Platelet Count 165 K/uL Mean Platelet Volume 12.2 fL Neutrophils (%) (Auto) 83.3 % Lymphocytes (%) (Auto) 9.3 % Monocytes (%) (Auto) 5.7 % Eosinophils (%) (Auto) 1.2 % Basophils (%) (Auto) 0.2 % Neutrophils # (Auto) 12.03 K/uL Lymphocytes # (Auto) 1.35 K/uL Monocytes # (Auto) 0.82 K/uL Eosinophils # (Auto) 0.17 K/uL Basophils # (Auto) 0.03 K/uL Bedside Hemoglobin 15.0 g/dl Bedside Hematocrit 44 % RDW Standard Deviation 46.2 fL RDW Coefficient of Variation 14.4 % Immature Granulocyte % (Auto) 0.3 % Immature Granulocyte # (Auto) 0.05 K/uL Bedside Sodium 140 mEq/L Sodium Level 139 mmol/L Bedside Potassium 4.1 mEq/L Potassium Level 4.2 mmol/L Bedside Chloride 100 mEq/L Chloride Level 103 mmol/L Carbon Dioxide Level 29 mmol/L Bedside Total CO2 28 mEq/l Anion Gap 17.0 mmol/L Bedside Blood Urea Nitrogen 27 mg/dl Blood Urea Nitrogen 26 mg/dl Creatinine 1.40 mg/dl Bedside Creatinine 1.3 mg/dl Estimated GFR () 40.5 Estimated GFR (Non- 34.9 BUN/Creatinine Ratio 18.9 Bedside Glucose (other) 107 mg/dl Random Glucose 101 mg/dl Calcium Level 10.0 mg/dl Bedside Ionized Calcium (Mario) 1.24 mmol/l Total Bilirubin 0.5 mg/dl Aspartate Amino Transf (AST/SGOT) 26 U/L Alanine Aminotransferase (ALT/SGPT) 14 U/L Alkaline Phosphatase 159 U/L Total Protein 8.3 gm/dl Albumin 3.7 gm/dl Globulin 4.6 gm/dl Albumin/Globulin Ratio 0.8 Urine Color ORANGE Urine Appearance TURBID Urine pH 7.0 Urine Specific [place] 1.020 Urine Protein 4+ Urine Glucose (UA) NEG Urine Ketones NEG Urine Occult Blood 3+ Urine Nitrite POS Urine Bilirubin NEG Urine Urobilinogen NEG Urine Leukocyte Esterase LARGE Urine WBC (Auto) >30 /hpf Urine RBC (Auto) >30 /hpf Urine Hyaline Casts (Auto) 0 /lpf Urine Epithelial Cells (Auto) 20-30 /lpf Urine Bacteria (Auto) NEG Urine Pathogenic Casts /lpf Bedside Glucose 111 mg/dl Test 08/07/16 20:46 08/08/16 07:38 08/08/16 09:22 Bedside Glucose 201 mg/dl 160 mg/dl Sodium Level 139 mmol/L Potassium Level 4.4 mmol/L Chloride Level 104 mmol/L Carbon Dioxide Level 31 mmol/L Anion Gap 4.0 mmol/L Blood Urea Nitrogen 30 mg/dl Creatinine 1.30 mg/dl Estimated GFR () 44.2 Estimated GFR (Non- 38.2 BUN/Creatinine Ratio 23.3 Random Glucose 182 mg/dl Calcium Level 8.8 mg/dl Assessment and Plan The patient is an 80-year-old female with a past medical history significant for coronary disease with 6/10, chronic UTIs with bilateral hydronephrosis, colon cancer, hepatocellular cancer status post liver ablation, diabetes mellitus with neuropathy, Parkinson's disease, atrial fibrillation, and aortic stenosis, who presents emergency department with 3 days of lower back pain and urinary frequency and dysuria. Recurrent UTI/bilateral hydronephrosis- on chronic suppressive therapy w/ Doxycycline: - Admit to med/surg - Renal US on 08/07: Moderate appearing bilateral hydronephrosis without significant change from comparison study dated 05/09/2016. Collapsed urinary bladder with Zhang catheter in place. 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 - Bladder US on 08/08: The bladder was partially decompressed around a Zhang catheter. There is no sonographic evidence of bladder wall thickening or mass lesion. Ureteral jets were identified. The distal ureters appear mildly dilated. - Zhang placed - Ceftriaxone 1 g IV daily; Doxycycline held - UCx- gram negative bacilli- will continue w/ IV Rocephin pending sensitives due to recurrent UTIs/treatment (?resistance) and multiple allergies - BCx pending - Consult urology, appreciate recommendations- follows w/ Dr. Richard AGUS on CKD stage III, baseline Cr. 1.1-1.2- RESOLVING: Follow PRP CAD/aortic stenosis/a.fib: Continue Isordil 20 mg BID, ASA 81 mg daily, Coreg 6.25 mg BID HTN- STABLE: Continue Isordil and Coreg as above T2DM: - Continue Humulin N 24 units SQ QAM and 24 units SQ afternoon and Humalog 4 units SQ BID - BSG ACHS w/ sliding insulin scale Diabetic peripheral neuropathy: - Continue Lyrica 100 mg BID - Neuropathy precautions Hyperlipidemia: Continue Atorvastatin 40 mg daily Parkinson's: Continue Sinemet 25/100, 2 tabs QID GERD: Continue Protonix 40 mg daiky, Carafate 1 g ACHS Depression: Continue Effexor XR 37.5 mg daily Chronic pain management: Continue Oxycodone ER 20 mg BID, Oxycodone 5 mg q6 hrs PRN GI Prophylaxis: Protonix, Colace BID, MiraLAX daily DVT Prophylaxis: TEDs/SCDs; chemical means held due to hematuria Code Status: LEVEL I, FULL Dispo: From home, lives w/ son and daughter- psych social worker consulted - PT/OT evaluations pending
[2016-08-08] MEDS ORDERED: NURSING VERBAL MED ORDER ONE (13:45)
[2016-08-08] MEDS ORDERED: SODIUM CHLORIDE 0.9% 500ML 500 ML IV ONE (14:00)
[2016-08-08] MEDS: CEFTRIAXONE SOD INJ 1 GM in DEXTROSE 5% ADD-VANTAGE 50ML 50 ML IV SCH (14:51)
--- NOTE | 2016-08-08 15:35 | Urology Consultation ---
History General Date of Service: Aug 08, 2016. Chief Complaint: UTI Primary Care Physician: Krishna Villanueva M.D. Pt seen a urologist before?: Yes If yes, why?: UTIs History of Present Illness 80y/o female w/ numerous chronic conditions, but recent flare of UTI like symptoms - past history of UTIs, but nothing within the past 8 mons - started having dysuria, urgency, frequency, and lower back pain several days ago - progressed rapidly - also was having a flare in her chronic neuropathy and together the symptoms brought her to the ER - has been on ceftriaxone since admission and reports her urinary symptoms have resolved nearly completely US - shows moderate b/l hydro - reviewing old films from May (US) and Feb (CT) - she has had hydro throughout - with the dilation appearing to continue to the level of the bladder on CT - I am uncertain there has been any appreciable change in the degree of hydro during that time Laboratory Labs were reviewed and are within normal limits unless listed below. Labs are available in the chart and at [facility] Problem List Medical Problems: (1) Constipation Status: Acute (2) Dehydration Status: Acute (3) Failure of outpatient treatment Status: Acute (4) Hyperglycemia Status: Acute (5) Left sided abdominal pain Status: Acute (6) Leukocytosis Status: Acute (7) Nausea Status: Acute (8) Substernal chest pain Status: Acute (9) Urinary retention Status: Acute (10) UTI (urinary tract infection) Status: Acute (11) Vomiting Status: Acute (12) Weakness Status: Acute Past History cancer - colon, coronary artery disease, depression, GERD, hypertension, urinary tract infection, other Past Surgical History: bowel resection, cholecystectomy Family History Cancer SISTER SISTER Diabetes mellitus MOTHER Lung disease FATHER Myocardial infarction BROTHER BROTHER Tuberculosis Social History Hx Tobacco Use In Past Year?: No (pt verbalizes currently exposed to second hand smoke) Marital status: single Housing status: lives with family Occupation status: retired History of MDRO No Allergies Coded Allergies: Iodinated Diagnostic Agents (Verified Allergy, Intermediate, IV CONTRAST- HIVES, 02/16/16) Azithromycin (Verified Allergy, Mild, dizzy, nauseous (per patient), ) from allergy list supplied by PCP - Dr. Villanueva in [place] Ciprofloxacin (Verified Allergy, Unknown, unknown, 02/16/16) from allergy list supplied by PCP - Dr. Villanueva in [place] Nitrofurantoin (Verified Allergy, Unknown, unknown, 02/16/16) from allergy list supplied by [facility] Villanueva in [place] Sulfamethoxazole w/Trimethoprim (Verified Allergy, Unknown, patient unsure , 02/16/16) from allergy list supplied by [facility] Villanueva in [place] Acarbose (Verified Adverse Reaction, Mild, GI SYMPTOMS, 02/16/16) from allergy list supplied by [facility] Villanueva in [place] Metformin (Verified Adverse Reaction, Mild, GI SYMPTOMS, 02/16/16) from allergy list supplied by [facility] Villanueva in [place] Penicillins (Verified Adverse Reaction, Mild, dizzy, nausous (per patient ) tolerated zosyn [id number], 02/16/16) from allergy list supplied by [facility] Villanueva in [place] Troglitazone (Verified Adverse Reaction, Mild, GI SYMPTOMS, 02/16/16) from allergy list supplied by [facility] Villanueva in [place] Medications Home Medications: Home Meds and Scripts Medications Dose Route/Sig Max Daily Dose Days Date Category Dose Instructions Oxycodone HCl 5 Mg Tab 5 Mg PO Q6 PRN 08/07/16 Reported Oxycodone HCl ER (Oxycodone HCl) 20 Mg Tab 20 Mg PO BID 08/07/16 Reported Miralax (Polyethylene Glycol 3350) 1 Pow 17 Gm PO DAILY 08/07/16 Reported Doxycycline (Doxycycline (Monohydrate)) 100 Mg Cap 100 Mg PO DAILY 08/07/16 Reported Humalog (Insulin Lispro (Human)) 100 Unit/Ml Inj 4 Units SC AMPM 08/07/16 Reported Lipitor (Atorvastatin) 40 Mg Tab 40 Mg PO DAILY 02/16/16 Reported Isordil (Isosorbide Dinitrate) 20 Mg Tab 20 Mg PO BID@0700,1200 30 11/24/15 Rx Humulin N (Insulin Human NPH) 1,000 Units/10 Ml Inj 24 Units SQ QPM 11/22/15 Reported Humulin N (Insulin Human NPH) 1,000 Units/10 Ml Inj 24 Units SQ QAM 11/22/15 Reported Colace (Docusate Sodium) 100 Mg Cap 100 Mg PO BID 11/22/15 Reported Lyrica (Pregabalin) 50 Mg Cap 100 Mg PO BID 11/22/15 Reported Sucralfate 1 Gm/10 Ml Susp 1 Gm PO ACHS 7 06/16/15 Rx Sinemet 25MG/100MG (Carbidopa/Levodopa) Tab 2 Tabs PO QID 06/09/15 Reported ADMINISTRATION TIMES 8AM,12,4PM,8PM Coreg (Carvedilol) 6.25 Mg Tab 6.25 Mg PO AMPM 06/09/15 Reported Aspirin 81 Mg Chw 81 Mg PO QAM 11/08/14 Reported Protonix (Pantoprazole Sodium) 40 Mg Tab 40 Mg PO QAM 11/08/14 Reported Effexor Xr (Venlafaxine Hcl) 37.5 Mg Cap 1 Cap PO QAM 30 11/08/14 Reported Folvite (Folic Acid) 1 Mg Tab 1 Mg PO QAM 11/08/14 Reported Inpatient Medications: Current Inpatient Medications Medications (Trade) Dose Ordered Sig/Nadege Route Start Time Stop Time Status Last Admin Dose Admin Acetaminophen (Tylenol Tab) 650 mg Q4H PRN PO 08/07/16 18:00 09/06/16 17:59 Atorvastatin Calcium (Lipitor Tab) 40 mg DAILY PO 08/08/16 08:00 09/07/16 08:59 08/08/16 07:22 40 MG Carbidopa/Levodopa (Sinemet 25/ 100MG Tab) 2 tab 0800,1200,1600,2000 PO 08/07/16 20:00 09/06/16 19:59 08/08/16 12:58 2 TAB Carvedilol (Coreg Tab) 6.25 mg BID PO 08/07/16 20:17 09/06/16 20:59 08/08/16 07:22 6.25 MG Docusate Sodium (coLACE CAP) 100 mg BID PO 08/07/16 20:17 09/06/16 20:59 08/08/16 07:21 100 MG Folic Acid (Folvite Tab) 1 mg QAM PO 08/08/16 08:00 09/07/16 08:59 08/08/16 07:21 1 MG Insulin Human NPH (novoLIN-N NPH) 24 units QAM SQ 08/08/16 08:00 09/07/16 08:59 08/08/16 08:46 24 UNITS Insulin Human NPH (novoLIN-N NPH) 24 units QPM SQ 08/07/16 21:00 09/06/16 20:59 08/07/16 21:58 24 UNITS Insulin Aspart (novoLOG ASPART) 4 units BID SC 08/07/16 20:17 09/06/16 20:59 08/08/16 08:46 4 UNITS Isosorbide Dinitrate (Isordil Tab) 20 mg BID@0700,1200 PO 08/08/16 07:00 09/07/16 06:59 08/08/16 06:18 20 MG Oxycodone HCl (Oxycontin Tab) 20 mg BID PO 08/07/16 20:17 08/21/16 20:59 08/08/16 07:33 20 MG Pantoprazole Sodium (Protonix Tab) 40 mg QAM PO 08/08/16 08:00 09/07/16 08:59 08/08/16 07:25 40 MG Pregabalin (Lyrica Cap) 100 mg BID PO 08/07/16 20:17 09/06/16 20:59 08/08/16 07:33 100 MG Venlafaxine HCl (effeXOR EXTENDED REL CAP) 37.5 mg QAM PO 08/08/16 08:00 09/07/16 08:59 08/08/16 07:24 37.5 MG Polyethylene (Miralax Powder Packet) 17 gm DAILY PO 08/08/16 08:00 09/07/16 08:59 08/08/16 07:24 17 GM Ceftriaxone Sodium 1 gm/ Dextrose 50 ml @ 100 mls/hr Q24H IV 08/08/16 14:00 08/17/16 13:59 08/08/16 14:51 100 MLS/HR Glucose (Glucose 40% Gel) 15-30 GRAMS 15 GRAMS... UD PRN PO 08/07/16 18:45 09/06/16 18:44 Glucose (Glucose Chew Tab) 4-8 Tablets 4 Tabl... UD PRN PO 08/07/16 18:45 09/06/16 18:44 Dextrose (Dextrose 50% 50ML Syringe) 25-50ML OF 50% DW IV FOR... UD PRN IV 08/07/16 18:45 09/06/16 18:44 Glucagon (Glucagon Inj) 1 mg UD PRN SQ 08/07/16 18:45 09/06/16 18:44 Aspirin (Ecotrin Tab) 81 mg QAM PO 08/09/16 08:00 09/08/16 07:59 Sucralfate (Carafate Susp) 1 gm ACHS PO 08/08/16 16:30 09/07/16 16:29 Oxycodone HCl (Roxicodone Immediate Rel Tab) 5 mg Q6H PRN PO 08/08/16 11:30 08/22/16 11:29 Review of Systems Review of Systems Constitutional: No see HPI, No fever, No chills, No frequent headaches, No weight loss, No problem reported Eyes: No see HPI, No blurred vision, No double vision, No eye pain, No loss of night vision, No problem reported Neurological: + numbness/tingling, + problem reported (neuropathic pain) Endocrine: No see HPI, No excessive thirst, No too hot, No too cold, No tired/ sluggish, No problem reported Gastrointestinal: + abdominal pain Cardiovascular: No see HPI, No heart murmur, No chest pain, No angina, No irregular heartbeat, No palpitations, No swelling ankles/feet, No problem reported Respiratory: No see HPI, No shortness of breath, No wheezing, No coughing up blood, No chronic cough, No problem reported Skin: No see HPI, No rash, No boils, No dry skin, No problem reported Musculoskeletal: + problem reported (legs and feet with pain) Blood / Lymphatic: No see HPI, No bleed easily, No bruise easily, No swollen glands, No problem reported Ears / Nose / Throat: No see HPI, No hearing loss, No sinus, No hoarse voice, No sore throat, No problem reported Psychologic / Mental: No see HPI, No nervous, No trouble remembering, No difficulty sleeping, No problem reported Female : + infections, + problem reported All Other Systems: Reviewed and Negative Physical Exam Vital Signs: Vital Signs Past 12 Hours Date Time Temp Pulse Resp B/P (MAP) Pulse Ox O2 Delivery O2 Flow Rate FiO2 08/08/16 14:26 102/46 (64) 08/08/16 13:15 78/42 (54) 08/08/16 08:00 93 Room Air 4.0 08/08/16 07:25 36.5 90 20 92/57 (69) 93 Room Air Physical Exam: General Appearance: WD/WN, no apparent distress Eyes: bilateral eyes normal inspection ENT: hearing grossly normal Neck: supple, no adenopathy Respiratory/Chest: no respiratory distress, no accessory muscle use Cardiovascular: regular rate, rhythm, no edema Gastrointestinal: Abdomen: normal abdomen Bladder: normal bladder Renal: normal renal Extremities: no pedal edema, + pertinent finding (tender to palpation below the knee) Neurologic/Psychiatric: alert, normal mood/affect, oriented x 3 Skin: warm/dry Lymphatic: no adenopathy Assessment & Plan Assessment & Plan UTI; hydro - responding appropriately to empiric abx - await final speciation and sensitivities before determining optimal oral antibiotic - uncertain there is any reason to intervene for the hydro at this stage - she follows with Dr. Richard as an outpt, we will arrange appropriate f/u after d/c
[2016-08-08] MEDS: OXYCODONE HCL IR 5 MG TAB (IMMEDIATE RELEASE) PO PRN ×2 (15:37→22:14)
[2016-08-08] MEDS: SUCRALFATE 1 GM/10 ML UDC PO SCH ×3 (16:30→20:16)
[2016-08-08 22:34] LABS: HEMATOCRIT 32.9 % (37-47)
[2016-08-09 00:27] VITALS: BP 117/74; PULSE 85; TEMP 36.8; O2SAT 92
[2016-08-09] MEDS: OXYCODONE HCL IR 5 MG TAB (IMMEDIATE RELEASE) PO PRN ×2 (04:21→15:34)
[2016-08-09] MEDS: SUCRALFATE 1 GM/10 ML UDC PO SCH ×4 (05:39→21:00)
[2016-08-09 07:56] VITALS: BP 153/81; PULSE 77; TEMP 36.7; O2SAT 97
[2016-08-09 07:57] LABS: HEMATOCRIT 34.4 % (37-47); MEAN CELL VOLUME 89.1 fL (80-100); MEAN CORPUSCULAR HEMOGLOBIN 28.2 pg (25-34); MEAN CORPUSCULAR HGB CONC 31.7 g/dl (32-36); MEAN PLATELET VOLUME 11.8 fL (7.4-10.4); PLATELET COUNT 118 K/uL (130-400); RED BLOOD COUNT 3.86 M/uL (4.2-5.4); WHITE BLOOD COUNT 7.28 K/uL (4.8-10.8)
[2016-08-09 08:00] VITALS: O2SAT 97
[2016-08-09] MEDS: OXYCODONE HCL 20 MG TABCR (OXYCONTIN) PO SCH ×2 (08:23→20:58)
[2016-08-09] MEDS: PANTOprazole SOD 40 MG TAB PO SCH (08:23)
[2016-08-09] MEDS: PREGABALIN 50 MG CAP PO SCH ×2 (08:23→20:58)
--- NOTE | 2016-08-09 08:23 | Progress Note ---
Subjective Date of Service: Aug 09, 2016. Subjective Pt evaluation today including: conversation w/ patient, physical exam, chart review, lab review, review of inpatient medication list Pain: C/o bilateral leg pain, genital burning pain, L toe pain PO Intake: Nena PO, no emesis Voiding: zhang catheter in place (urine dark) 80 yo female, known to myself, due to see me in 1 week in the office, admitted due to malaise, weakness and UTI. Her UC&S shows Klebsiella, pansensitive save to nitrofurantoin. The main issue for this patient seems to be her multiple antibiotic sensitivities. Zhang is in place with dark, concentrated urine. Her history of chronic hydro is noted. Past notes reviewed. Problem List Medical Problems: (1) Constipation Status: Acute (2) Dehydration Status: Acute (3) Failure of outpatient treatment Status: Acute (4) Hyperglycemia Status: Acute (5) Left sided abdominal pain Status: Acute (6) Leukocytosis Status: Acute (7) Nausea Status: Acute (8) Substernal chest pain Status: Acute (9) Urinary retention Status: Acute (10) UTI (urinary tract infection) Status: Acute (11) Vomiting Status: Acute (12) Weakness Status: Acute Review of Systems Constitutional: No fever, No chills Eyes: No worsening of vision ENT: No hearing loss Respiratory: No wheezing, No shortness of breath Cardiac: No chest pain Abdomen: No nausea, No vomiting Musculoskeletal: + problem reported (bilateral leg pain) Skin: No new/changing skin lesions Objective Vital Signs Date Time Temp Pulse Resp B/P (MAP) Pulse Ox O2 Delivery O2 Flow Rate FiO2 08/09/16 07:56 36.7 77 20 153/81 (105) 97 Room Air 08/09/16 00:27 36.8 85 18 117/74 (88) 92 Room Air 08/09/16 00:00 Room Air 08/08/16 22:56 37.0 84 18 98/64 (75) 95 Room Air 08/08/16 19:06 36.7 86 18 113/62 (79) 92 Room Air 08/08/16 17:01 36.7 89 18 112/67 (82) 91 Room Air 08/08/16 16:00 Room Air 08/08/16 15:41 36.7 84 18 122/75 (91) 86 Room Air 08/08/16 14:26 102/46 (64) 08/08/16 13:15 78/42 (54) Physical Exam General Appearance: WD/WN, no apparent distress ENT: hearing grossly normal Neck: supple, no adenopathy Respiratory/Chest: no respiratory distress, no accessory muscle use Cardiovascular: no JVD Abdomen: non tender, soft Extremities: + pertinent finding (? old blood under L great toenail, c/o pain, no cellulitis or gangrene) Neurologic/Psychiatric: alert Skin: normal color Laboratory Results Last 24 Hours Test 08/08/16 09:22 08/08/16 11:12 08/08/16 15:54 08/08/16 16:28 Sodium Level 139 mmol/L Potassium Level 4.4 mmol/L Chloride Level 104 mmol/L Carbon Dioxide Level 31 mmol/L Anion Gap 4.0 mmol/L Blood Urea Nitrogen 30 mg/dl Creatinine 1.30 mg/dl Estimated GFR () 44.2 Estimated GFR (Non- 38.2 BUN/Creatinine Ratio 23.3 Random Glucose 182 mg/dl Calcium Level 8.8 mg/dl Bedside Glucose 172 mg/dl 138 mg/dl Erythrocyte Sedimentation Rate 48 mm/hr Lactic Acid Level 0.9 mmol/L C-Reactive Protein 13.30 mg/dl Test 08/08/16 20:16 08/08/16 22:13 08/09/16 05:46 08/09/16 07:33 Bedside Glucose 179 mg/dl 141 mg/dl Hemoglobin 10.2 g/dL 10.9 g/dL Hematocrit 32.9 % 34.4 % White Blood Count 7.28 K/uL Red Blood Count 3.86 M/uL Mean Corpuscular Volume 89.1 fL Mean Corpuscular Hemoglobin 28.2 pg Mean Corpuscular Hemoglobin Concent 31.7 g/dl RDW Standard Deviation 47.1 fL RDW Coefficient of Variation 14.5 % Platelet Count 118 K/uL Mean Platelet Volume 11.8 fL Test 08/09/16 07:43 08/09/16 07:54 08/09/16 07:59 Bedside Glucose 134 mg/dl Transferrin % Saturation % Assessment and Plan A/P 80 yo female with a history of recurrent UTI, weakness, malaise. Findings reviewed. Positive UC&S for Klebsiella - would treat for 10 days with appropriate antibiotics. Scheduled next week in office - will discuss longer term plan at that time regarding her infections and hydro. Complains of weakness - unclear the degree to which this is related to UTI. PT consult. Complains of L toe pain - consider podiatry evaluation.
[2016-08-09] MEDS: VENLAFAXINE HCL XR 37.5 MG CAPXR PO SCH (08:24)
[2016-08-09] MEDS: CARBIDOPA/LEVODOPA 25/100MG TAB PO SCH ×4 (08:24→20:58)
[2016-08-09] MEDS: DOCUSATE SODIUM 100 MG CAP PO SCH ×2 (08:24→20:59)
[2016-08-09] MEDS: CARVEDILOL 6.25 MG TAB PO SCH ×2 (08:25→20:59)
[2016-08-09] MEDS: ASPIRIN 81 MG ECTAB PO SCH (08:25)
[2016-08-09] MEDS: ATORVASTATIN 20 MG TAB PO SCH (08:25)
[2016-08-09] MEDS: POLYETHYLENE (MIRALAX) 17 GM PACK PO SCH (08:28)
[2016-08-09 08:39] LABS: BLOOD UREA NITROGEN 27 mg/dl (7-18); BUN/CREATININE RATIO 20.8 (10-20); CARBON DIOXIDE 31 mmol/L (21-32); CHLORIDE 102 mmol/L (98-107); GLUCOSE 133 mg/dl (70-99); MAGNESIUM 1.7 mg/dl (1.8-2.4); POTASSIUM 4.1 mmol/L (3.5-5.1); SODIUM 140 mmol/L (136-145)
[2016-08-09] MEDS: INSULIN HUMAN NPH SQ SCH ×2 (08:46→21:03)
[2016-08-09] MEDS: INSULIN ASPART 100 UNITS/ML 3 ML PEN SC SCH ×2 (08:47→21:02)
[2016-08-09 09:06] LABS: FERRITIN 80.8 ng/ml (8.0-388.0); THYROID STIMULATING HORMONE 1.35 uIu/ml (0.300-4.500)
[2016-08-09] MEDS ORDERED: MAGNESIUM SULFATE 1GM / D5W 1 GM in PREMIXED IN D5W 100 ML IV ONE (11:00)
--- NOTE | 2016-08-09 11:41 | Hospitalist Progress Note ---
Hospitalist Progress Note Date of Service Aug 09, 2016. Subjective Pt evaluation today including: conversation w/ patient, conversation w/ family (daughter- at bedside ), physical exam, chart review, lab review, review of studies, review of inpatient medication list Voiding: zhang catheter in place (draining concentrated/matteo urine ) Patient states she is feeling fatigued and weak this AM. She is eating and drinking OK. Admits to lower back pain, but improving. Controlled w/ PO pain medications. Denies any recent falls/injuries- started when other UTI symptoms occurred, similar to past Bilateral lower extremity neuropathy pain- chronic. Patient denies any fever, chills, sweats, lightheadedness, dizziness, vision changes, CP, palpitations, edema, SOB, wheezing, cough, abdominal pain, nausea, vomiting, diarrhea, urinary symptoms, melena, numbness/tingling, anxiety/ depression, active bleeding, or new skin discoloration/changes. Medications Current Inpatient Medications Medications (Trade) Dose Ordered Sig/Nadege Route Start Time Stop Time Status Last Admin Dose Admin Acetaminophen (Tylenol Tab) 650 mg Q4H PRN PO 08/07/16 18:00 09/06/16 17:59 Atorvastatin Calcium (Lipitor Tab) 40 mg DAILY PO 08/08/16 08:00 09/07/16 08:59 08/09/16 08:25 40 MG Carbidopa/Levodopa (Sinemet 25/ 100MG Tab) 2 tab 0800,1200,1600,2000 PO 08/07/16 20:00 09/06/16 19:59 08/09/16 08:24 2 TAB Carvedilol (Coreg Tab) 6.25 mg BID PO 08/07/16 20:17 09/06/16 20:59 08/09/16 08:25 6.25 MG Docusate Sodium (coLACE CAP) 100 mg BID PO 08/07/16 20:17 09/06/16 20:59 08/09/16 08:24 100 MG Folic Acid (Folvite Tab) 1 mg QAM PO 08/08/16 08:00 09/07/16 08:59 08/09/16 08:23 1 MG Insulin Human NPH (novoLIN-N NPH) 24 units QAM SQ 08/08/16 08:00 09/07/16 08:59 08/09/16 08:46 24 UNITS Insulin Human NPH (novoLIN-N NPH) 24 units QPM SQ 08/07/16 21:00 09/06/16 20:59 08/08/16 20:18 24 UNITS Insulin Aspart (novoLOG ASPART) 4 units BID SC 08/07/16 20:17 09/06/16 20:59 08/09/16 08:47 4 UNITS Isosorbide Dinitrate (Isordil Tab) 20 mg BID@0700,1200 PO 08/08/16 07:00 09/07/16 06:59 Future Hold 08/08/16 06:18 20 MG Oxycodone HCl (Oxycontin Tab) 20 mg BID PO 08/07/16 20:17 08/21/16 20:59 08/09/16 08:23 20 MG Pantoprazole Sodium (Protonix Tab) 40 mg QAM PO 08/08/16 08:00 09/07/16 08:59 08/09/16 08:23 40 MG Pregabalin (Lyrica Cap) 100 mg BID PO 08/07/16 20:17 09/06/16 20:59 08/09/16 08:23 100 MG Venlafaxine HCl (effeXOR EXTENDED REL CAP) 37.5 mg QAM PO 08/08/16 08:00 09/07/16 08:59 08/09/16 08:24 37.5 MG Polyethylene (Miralax Powder Packet) 17 gm DAILY PO 08/08/16 08:00 09/07/16 08:59 08/09/16 08:28 17 GM Ceftriaxone Sodium 1 gm/ Dextrose 50 ml @ 100 mls/hr Q24H IV 08/08/16 14:00 08/17/16 13:59 08/08/16 14:51 100 MLS/HR Glucose (Glucose 40% Gel) 15-30 GRAMS 15 GRAMS... UD PRN PO 08/07/16 18:45 09/06/16 18:44 Glucose (Glucose Chew Tab) 4-8 Tablets 4 Tabl... UD PRN PO 08/07/16 18:45 09/06/16 18:44 Dextrose (Dextrose 50% 50ML Syringe) 25-50ML OF 50% DW IV FOR... UD PRN IV 08/07/16 18:45 09/06/16 18:44 Glucagon (Glucagon Inj) 1 mg UD PRN SQ 08/07/16 18:45 09/06/16 18:44 Aspirin (Ecotrin Tab) 81 mg QAM PO 08/09/16 08:00 09/08/16 07:59 08/09/16 08:25 81 MG Sucralfate (Carafate Susp) 1 gm ACHS PO 08/08/16 16:30 09/07/16 16:29 08/09/16 11:15 1 GM Oxycodone HCl (Roxicodone Immediate Rel Tab) 5 mg Q6H PRN PO 08/08/16 11:30 08/22/16 11:29 08/09/16 04:21 5 MG Magnesium Sulfate 1 gm/Prmx 100 ml @ 100 mls/hr TODAY@1100 ONCE IV 08/09/16 11:00 08/09/16 11:59 08/09/16 11:14 100 MLS/HR Objective Vital Signs Date Time Temp Pulse Resp B/P (MAP) Pulse Ox O2 Delivery O2 Flow Rate FiO2 08/09/16 08:00 97 Room Air 4.0 08/09/16 07:56 36.7 77 20 153/81 (105) 97 Room Air 08/09/16 00:27 36.8 85 18 117/74 (88) 92 Room Air 08/09/16 00:00 Room Air 08/08/16 22:56 37.0 84 18 98/64 (75) 95 Room Air 08/08/16 19:06 36.7 86 18 113/62 (79) 92 Room Air 08/08/16 17:01 36.7 89 18 112/67 (82) 91 Room Air 08/08/16 16:00 Room Air 08/08/16 15:41 36.7 84 18 122/75 (91) 86 Room Air 08/08/16 14:26 102/46 (64) 08/08/16 13:15 78/42 (54) Physical Exam General Appearance: no apparent distress, + obese Eyes: normal inspection, PERRL ENT: hearing grossly normal Neck: supple Respiratory/Chest: lungs clear, no respiratory distress, no accessory muscle use Cardiovascular: regular rate, rhythm, + systolic murmur Abdomen: normal bowel sounds, non tender, soft Extremities: no pedal edema, no calf tenderness Neurologic/Psychiatric: alert, oriented x 3, + sensory deficit (chronic- bilateral neuropathy to feet ) Skin: warm/dry, no rash, + pallor Laboratory Results Last 24 Hours Test 08/08/16 15:54 08/08/16 16:28 08/08/16 20:16 08/08/16 22:13 Erythrocyte Sedimentation Rate 48 mm/hr Lactic Acid Level 0.9 mmol/L C-Reactive Protein 13.30 mg/dl Bedside Glucose 138 mg/dl 179 mg/dl Hemoglobin 10.2 g/dL Hematocrit 32.9 % Test 08/09/16 05:46 08/09/16 07:33 08/09/16 07:43 08/09/16 07:59 Bedside Glucose 141 mg/dl 134 mg/dl White Blood Count 7.28 K/uL Red Blood Count 3.86 M/uL Hemoglobin 10.9 g/dL Hematocrit 34.4 % Mean Corpuscular Volume 89.1 fL Mean Corpuscular Hemoglobin 28.2 pg Mean Corpuscular Hemoglobin Concent 31.7 g/dl RDW Standard Deviation 47.1 fL RDW Coefficient of Variation 14.5 % Platelet Count 118 K/uL Mean Platelet Volume 11.8 fL Sodium Level 140 mmol/L Potassium Level 4.1 mmol/L Chloride Level 102 mmol/L Carbon Dioxide Level 31 mmol/L Anion Gap 7.0 mmol/L Blood Urea Nitrogen 27 mg/dl Creatinine 1.30 mg/dl Estimated GFR () 44.2 Estimated GFR (Non- 38.2 BUN/Creatinine Ratio 20.8 Random Glucose 133 mg/dl Calcium Level 9.0 mg/dl Magnesium Level 1.7 mg/dl Chemistry Specimen Hemolysis Iron Level 36 mcg/dl Total Iron Binding Capacity 252 mcg/dl Transferrin 190 mg/dl Transferrin % Saturation 14 % Ferritin 80.8 ng/ml Vitamin B12 Level 427 pg/mL Folate > 24.00 ng/mL Thyroid Stimulating Hormone (TSH) 1.350 uIu/ml Assessment and Plan The patient is an 80-year-old female with a past medical history significant for coronary disease with 6/10, chronic UTIs with bilateral hydronephrosis, colon cancer, hepatocellular cancer status post liver ablation, diabetes mellitus with neuropathy, Parkinson's disease, atrial fibrillation, and aortic stenosis, who presents emergency department with 3 days of lower back pain and urinary frequency and dysuria. Recurrent UTI w/ hematuria/bilateral hydronephrosis- on chronic suppressive therapy w/ Doxycycline: - Admit to med/surg - Renal US on 08/07: Moderate appearing bilateral hydronephrosis without significant change from comparison study dated 05/09/2016. Collapsed urinary bladder with Zhang catheter in place. 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 - Bladder US on 08/08: The bladder was partially decompressed around a Zhang catheter. There is no sonographic evidence of bladder wall thickening or mass lesion. Ureteral jets were identified. The distal ureters appear mildly dilated. - Zhang placed - Pain managed w/ continued outpt regimen of OxyContin 20 mg BID and Roxicodone 5 mg q6 hrs PRN - Ceftriaxone 1 g IV daily (started on 08/08); Doxycycline held -- Will continue IV antibiotics for another day; if patient progresses well, will transition to PO antibiotics tomorrow - UCx- Klebsielleae pneumoniae- sensitives reviewed - BCx- NGTD - Consult urology, appreciate recommendations- follows w/ Dr. Richard -- f/u outpatient Anemia, ?secondary to hematuria vs. other etiology: - Following H&H - Reviewed iron pain, b12/folate, and TSH - Stool Hemoccult pending Hypomagnesemia at 1.7 on 08/09: - Replace w/ IV 1g Mag x1 - Follow mag level and replace PRN AGUS on CKD stage III, baseline Cr. 1.1-1.2- RESOLVING: Follow PRP CAD/aortic stenosis/a.fib: Isordil 20 mg BID, ASA 81 mg daily, Coreg 6.25 mg BID HTN- STABLE: - Isordil and Coreg as above -- Hypotensive episodes on 08/08- RESOLVED: Isordil held and 500cc bolus of IVF given T2DM: - Continue Humulin N 24 units SQ QAM and 24 units SQ afternoon and Humalog 4 units SQ BID - BSG ACHS w/ sliding insulin scale Diabetic peripheral neuropathy: - Continue Lyrica 100 mg BID - Neuropathy precautions Hyperlipidemia: Continue Atorvastatin 40 mg daily Parkinson's: Continue Sinemet 25/100, 2 tabs QID GERD: Continue Protonix 40 mg daiky, Carafate 1 g ACHS Depression: Continue Effexor XR 37.5 mg daily Chronic pain management: Continue Oxycodone ER 20 mg BID, Oxycodone 5 mg q6 hrs PRN GI Prophylaxis: Protonix, Colace BID, MiraLAX daily DVT Prophylaxis: TEDs/SCDs; chemical means held due to hematuria Code Status: LEVEL I, FULL Dispo: From home, lives w/ son and daughter- social security benefits interviewer consulted - PT/OT evaluations pending
[2016-08-09] MEDS: CEFTRIAXONE SOD INJ 1 GM in DEXTROSE 5% ADD-VANTAGE 50ML 50 ML IV SCH (13:50)
[2016-08-09 14:17] LABS: HEMATOCRIT 30.6 % (37-47)
[2016-08-09 15:00] VITALS: BP 113/76; PULSE 76; TEMP 36.8; O2SAT 95
[2016-08-10 00:10] VITALS: BP 138/79; PULSE 71; TEMP 36.7; O2SAT 96
[2016-08-10] MEDS: SUCRALFATE 1 GM/10 ML UDC PO SCH ×4 (06:30→21:16)
--- NOTE | 2016-08-10 07:32 | Progress Note ---
Subjective Date of Service: Aug 10, 2016. Subjective Pt evaluation today including: conversation w/ patient, chart review, lab review Voiding: zhang catheter in place (patent, draining matteo colored urine with some blood noted in drainage tubing) 80 yo female with UTI. Pt reports she feels a little stronger today, but is tired. Continues to have LLE pain. Attempted PT/OT consult yesterday, but nursing reports she was too weak and tired to do anymore than sit on the edge of her bed. Zhang draining matteo colored urine with some blood noted in the tubing. UC&S growing Klebsiella. Multiple abx allergies noted. Problem List Medical Problems: (1) Constipation Status: Acute (2) Dehydration Status: Acute (3) Failure of outpatient treatment Status: Acute (4) Hyperglycemia Status: Acute (5) Left sided abdominal pain Status: Acute (6) Leukocytosis Status: Acute (7) Nausea Status: Acute (8) Substernal chest pain Status: Acute (9) Urinary retention Status: Acute (10) UTI (urinary tract infection) Status: Acute (11) Vomiting Status: Acute (12) Weakness Status: Acute Review of Systems Constitutional: No fever, No chills Respiratory: No shortness of breath Cardiac: No chest pain Abdomen: No pain, No nausea, No vomiting Musculoskeletal: + see HPI, + problem reported (LLE pain , neuropathy) Female : + hematuria Heme: No abnormal bleeding/bruising Objective Vital Signs Date Time Temp Pulse Resp B/P (MAP) Pulse Ox O2 Delivery O2 Flow Rate FiO2 08/10/16 00:10 36.7 71 18 138/79 (98) 96 Room Air 08/09/16 23:40 Room Air 08/09/16 16:00 Room Air 08/09/16 15:00 36.8 76 22 113/76 (88) 95 Room Air 08/09/16 08:00 97 Room Air 4.0 08/09/16 07:56 36.7 77 20 153/81 (105) 97 Room Air Physical Exam General Appearance: no apparent distress Eyes: normal inspection ENT: hearing grossly normal Neck: no JVD Respiratory/Chest: no respiratory distress, no accessory muscle use Cardiovascular: no JVD Extremities: normal inspection Neurologic/Psychiatric: alert, normal mood/affect, oriented x 3 Skin: normal color Laboratory Results Last 24 Hours Test 08/09/16 07:33 08/09/16 07:43 08/09/16 07:59 08/09/16 11:28 White Blood Count 7.28 K/uL Red Blood Count 3.86 M/uL Hemoglobin 10.9 g/dL Hematocrit 34.4 % Mean Corpuscular Volume 89.1 fL Mean Corpuscular Hemoglobin 28.2 pg Mean Corpuscular Hemoglobin Concent 31.7 g/dl RDW Standard Deviation 47.1 fL RDW Coefficient of Variation 14.5 % Platelet Count 118 K/uL Mean Platelet Volume 11.8 fL Sodium Level 140 mmol/L Potassium Level 4.1 mmol/L Chloride Level 102 mmol/L Carbon Dioxide Level 31 mmol/L Anion Gap 7.0 mmol/L Blood Urea Nitrogen 27 mg/dl Creatinine 1.30 mg/dl Estimated GFR () 44.2 Estimated GFR (Non- 38.2 BUN/Creatinine Ratio 20.8 Random Glucose 133 mg/dl Calcium Level 9.0 mg/dl Magnesium Level 1.7 mg/dl Chemistry Specimen Hemolysis Bedside Glucose 134 mg/dl 180 mg/dl Iron Level 36 mcg/dl Total Iron Binding Capacity 252 mcg/dl Transferrin 190 mg/dl Transferrin % Saturation 14 % Ferritin 80.8 ng/ml Vitamin B12 Level 427 pg/mL Folate > 24.00 ng/mL Thyroid Stimulating Hormone (TSH) 1.350 uIu/ml Test 08/09/16 14:10 08/09/16 16:34 08/09/16 20:20 08/10/16 07:03 Hemoglobin 9.7 g/dL Hematocrit 30.6 % Bedside Glucose 213 mg/dl 207 mg/dl Assessment and Plan A/P: UTI, gross hematuria, bilateral hydro AFVSS. Transition to 10 days of oral abx such as cefuroxime prior to d/c home. Multiple abx allergies noted. May attempt trial of void prior to d/c home as well. As for her gross hematuria, will send a cytology and consider outpatient cysto in the future for further evaluation. Bilateral hydro stable as compared to films from the spring. The pt will keep her f/u as scheduled next week with Dr. Richard.
[2016-08-10 07:45] VITALS: O2SAT 93
[2016-08-10 07:59] VITALS: BP 123/70; PULSE 68; TEMP 36.6; O2SAT 93
[2016-08-10 08:01] LABS: HEMATOCRIT 31.9 % (37-47); MEAN CELL VOLUME 87.9 fL (80-100); MEAN CORPUSCULAR HGB CONC 30.7 g/dl (32-36); MEAN PLATELET VOLUME 11.8 fL (7.4-10.4); PLATELET COUNT 127 K/uL (130-400); RED BLOOD COUNT 3.63 M/uL (4.2-5.4); WHITE BLOOD COUNT 6.07 K/uL (4.8-10.8)
[2016-08-10 08:19] LABS: BLOOD UREA NITROGEN 20 mg/dl (7-18); BUN/CREATININE RATIO 18.5 (10-20); CALCIUM 8.8 mg/dl (8.5-10.1); CARBON DIOXIDE 33 mmol/L (21-32); CHLORIDE 104 mmol/L (98-107); GLUCOSE 66 mg/dl (70-99); MAGNESIUM 1.9 mg/dl (1.8-2.4); POTASSIUM 3.8 mmol/L (3.5-5.1); SODIUM 141 mmol/L (136-145)
[2016-08-10] MEDS: PANTOprazole SOD 40 MG TAB PO SCH (08:34)
[2016-08-10] MEDS: ASPIRIN 81 MG ECTAB PO SCH (08:35)
[2016-08-10] MEDS: CARVEDILOL 6.25 MG TAB PO SCH ×2 (08:35→21:17)
[2016-08-10] MEDS: DOCUSATE SODIUM 100 MG CAP PO SCH ×2 (08:35→21:16)
[2016-08-10] MEDS: VENLAFAXINE HCL XR 37.5 MG CAPXR PO SCH (08:35)
[2016-08-10] MEDS: CARBIDOPA/LEVODOPA 25/100MG TAB PO SCH ×4 (08:35→21:17)
[2016-08-10] MEDS: ATORVASTATIN 20 MG TAB PO SCH (08:35)
[2016-08-10] MEDS: POLYETHYLENE (MIRALAX) 17 GM PACK PO SCH (08:35)
[2016-08-10] MEDS: OXYCODONE HCL 20 MG TABCR (OXYCONTIN) PO SCH ×2 (08:39→21:23)
[2016-08-10] MEDS: PREGABALIN 50 MG CAP PO SCH ×2 (08:39→21:23)
[2016-08-10] MEDS: INSULIN ASPART 100 UNITS/ML 3 ML PEN SC SCH ×2 (08:52→21:14)
[2016-08-10] MEDS: INSULIN HUMAN NPH SQ SCH ×2 (08:53→21:15)
[2016-08-10] MEDS ORDERED: NURSING VERBAL MED ORDER ONE (09:00)
--- NOTE | 2016-08-10 12:38 | Hospitalist Progress Note ---
Hospitalist Progress Note Date of Service Aug 10, 2016. (Camelia Heller ., HERSON) Subjective Pt evaluation today including: conversation w/ patient, conversation w/ family (daughter- at bedside ), physical exam, chart review, lab review, review of inpatient medication list Patient states she is feeling better this AM. Melissa removed this AM- has not urinated yet. She is eating and drinking OK. Patient denies any fever, chills, sweats, lightheadedness, dizziness, vision changes, CP, palpitations, edema, SOB, wheezing, cough, abdominal pain, nausea, vomiting, diarrhea, urinary symptoms, melena, numbness/tingling, weakness, muscle/joint pain, anxiety/depression, active bleeding, or new skin discoloration/changes. (Camelia Heller ., HEAVENLYC) Medications Current Inpatient Medications Medications (Trade) Dose Ordered Sig/Nadege Route Start Time Stop Time Status Last Admin Dose Admin Acetaminophen (Tylenol Tab) 650 mg Q4H PRN PO 08/07/16 18:00 09/06/16 17:59 Atorvastatin Calcium (Lipitor Tab) 40 mg DAILY PO 08/08/16 08:00 09/07/16 08:59 08/10/16 08:35 40 MG Carbidopa/Levodopa (Sinemet 25/ 100MG Tab) 2 tab 0800,1200,1600,2000 PO 08/07/16 20:00 09/06/16 19:59 08/10/16 11:59 2 TAB Carvedilol (Coreg Tab) 6.25 mg BID PO 08/07/16 20:17 09/06/16 20:59 08/10/16 08:35 6.25 MG Docusate Sodium (coLACE CAP) 100 mg BID PO 08/07/16 20:17 09/06/16 20:59 08/10/16 08:35 100 MG Folic Acid (Folvite Tab) 1 mg QAM PO 08/08/16 08:00 09/07/16 08:59 08/10/16 08:35 1 MG Insulin Human NPH (novoLIN-N NPH) 24 units QAM SQ 08/08/16 08:00 09/07/16 08:59 08/10/16 08:53 12 UNITS Insulin Human NPH (novoLIN-N NPH) 24 units QPM SQ 08/07/16 21:00 09/06/16 20:59 08/09/16 21:03 24 UNITS Insulin Aspart (novoLOG ASPART) 4 units BID SC 08/07/16 20:17 09/06/16 20:59 08/10/16 08:52 4 UNITS Isosorbide Dinitrate (Isordil Tab) 20 mg BID@0700,1200 PO 08/08/16 07:00 09/07/16 06:59 Future Hold 08/08/16 06:18 20 MG Oxycodone HCl (Oxycontin Tab) 20 mg BID PO 08/07/16 20:17 08/21/16 20:59 08/10/16 08:39 20 MG Pantoprazole Sodium (Protonix Tab) 40 mg QAM PO 08/08/16 08:00 09/07/16 08:59 08/10/16 08:34 40 MG Pregabalin (Lyrica Cap) 100 mg BID PO 08/07/16 20:17 09/06/16 20:59 08/10/16 08:39 100 MG Venlafaxine HCl (effeXOR EXTENDED REL CAP) 37.5 mg QAM PO 08/08/16 08:00 09/07/16 08:59 08/10/16 08:35 37.5 MG Polyethylene (Miralax Powder Packet) 17 gm DAILY PO 08/08/16 08:00 09/07/16 08:59 08/10/16 08:35 17 GM Ceftriaxone Sodium 1 gm/ Dextrose 50 ml @ 100 mls/hr Q24H IV 08/08/16 14:00 08/17/16 13:59 08/09/16 13:50 100 MLS/HR Glucose (Glucose 40% Gel) 15-30 GRAMS 15 GRAMS... UD PRN PO 08/07/16 18:45 09/06/16 18:44 Glucose (Glucose Chew Tab) 4-8 Tablets 4 Tabl... UD PRN PO 08/07/16 18:45 09/06/16 18:44 Dextrose (Dextrose 50% 50ML Syringe) 25-50ML OF 50% DW IV FOR... UD PRN IV 08/07/16 18:45 09/06/16 18:44 Glucagon (Glucagon Inj) 1 mg UD PRN SQ 08/07/16 18:45 09/06/16 18:44 Aspirin (Ecotrin Tab) 81 mg QAM PO 08/09/16 08:00 09/08/16 07:59 08/10/16 08:35 81 MG Sucralfate (Carafate Susp) 1 gm ACHS PO 08/08/16 16:30 09/07/16 16:29 08/10/16 11:07 1 GM Oxycodone HCl (Roxicodone Immediate Rel Tab) 5 mg Q6H PRN PO 08/08/16 11:30 08/22/16 11:29 08/09/16 15:34 5 MG (Camelia Heller, AMBERLY-C) Objective Vital Signs Date Time Temp Pulse Resp B/P (MAP) Pulse Ox O2 Delivery O2 Flow Rate FiO2 08/10/16 07:59 36.6 68 18 123/70 (87) 93 Room Air 08/10/16 07:45 93 Room Air 08/10/16 00:10 36.7 71 18 138/79 (98) 96 Room Air 08/09/16 23:40 Room Air 08/09/16 16:00 Room Air 08/09/16 15:00 36.8 76 22 113/76 (88) 95 Room Air (Camelia Heller, PA-C) Physical Exam General Appearance: no apparent distress Eyes: normal inspection, PERRL ENT: hearing grossly normal Neck: supple Respiratory/Chest: lungs clear, no respiratory distress, no accessory muscle use Cardiovascular: regular rate, rhythm Abdomen: normal bowel sounds, non tender, soft Extremities: no pedal edema, no calf tenderness Neurologic/Psychiatric: alert, normal mood/affect, oriented x 3 Skin: warm/dry, no rash, + pallor (Camelia Heller ., PA-C) Laboratory Results Last 24 Hours Test 08/09/16 14:10 08/09/16 16:34 08/09/16 20:20 08/10/16 07:03 Hemoglobin 9.7 g/dL 9.8 g/dL Hematocrit 30.6 % 31.9 % Bedside Glucose 213 mg/dl 207 mg/dl White Blood Count 6.07 K/uL Red Blood Count 3.63 M/uL Mean Corpuscular Volume 87.9 fL Mean Corpuscular Hemoglobin 27.0 pg Mean Corpuscular Hemoglobin Concent 30.7 g/dl RDW Standard Deviation 46.7 fL RDW Coefficient of Variation 14.4 % Platelet Count 127 K/uL Mean Platelet Volume 11.8 fL Sodium Level 141 mmol/L Potassium Level 3.8 mmol/L Chloride Level 104 mmol/L Carbon Dioxide Level 33 mmol/L Anion Gap 4.0 mmol/L Blood Urea Nitrogen 20 mg/dl Creatinine 1.10 mg/dl Estimated GFR () 54.1 Estimated GFR (Non- 46.7 BUN/Creatinine Ratio 18.5 Random Glucose 66 mg/dl Calcium Level 8.8 mg/dl Magnesium Level 1.9 mg/dl Test 08/10/16 07:39 Bedside Glucose 75 mg/dl (Camelia Heller, HERSON) Assessment and Plan The patient is an 80-year-old female with a past medical history significant for coronary disease with 07/15, chronic UTIs with bilateral hydronephrosis, colon cancer, hepatocellular cancer status post liver ablation, diabetes mellitus with neuropathy, Parkinson's disease, atrial fibrillation, and aortic stenosis, who presents emergency department with 3 days of lower back pain and urinary frequency and dysuria. Recurrent UTI w/ hematuria/bilateral hydronephrosis- on chronic suppressive therapy w/ Doxycycline: - Admit to med/surg - Renal US on 08/07: Moderate appearing bilateral hydronephrosis without significant change from comparison study dated 05/09/2016. Collapsed urinary bladder with Torres catheter in place. 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 - Bladder US on 08/08: The bladder was partially decompressed around a Torres catheter. There is no sonographic evidence of bladder wall thickening or mass lesion. Ureteral jets were identified. The distal ureters appear mildly dilated. - Torres placed - Pain managed w/ continued outpt regimen of OxyContin 20 mg BID and Roxicodone 5 mg q6 hrs PRN - Ceftriaxone 1 g IV daily (started on 08/08); Doxycycline held -- d/c IV antibiotics and start Keflex on 08/10- pt states she has taken in the past w/ no ADR - UCx- Klebsielleae pneumoniae- sensitives reviewed - BCx- NGTD - Consult urology, appreciate recommendations- follows w/ Dr. Richard -- f/u outpatient Anemia, ?secondary to hematuria vs. other etiology: - Following H&H- STABLE - Reviewed iron pain, b12/folate, and TSH - Stool Hemoccult pending Hypomagnesemia at 1.7 on 08/09- RESOLVED: - Replace w/ IV 1g Mag x1 - Follow mag level and replace PRN AGUS on CKD stage III, baseline Cr. 1.1-1.2- RESOLVED: Follow PRP CAD/aortic stenosis/a.fib: - Isordil 20 mg BID held due to hypotension - ASA 81 mg daily, Coreg 6.25 mg BID HTN- STABLE: - Isordil and Coreg as above -- Hypotensive episodes on 08/08- RESOLVED: Isordil held and 500cc bolus of IVF given T2DM: - Continue Humulin N 24 units SQ QAM and 24 units SQ afternoon and Humalog 4 units SQ BID -- BSG of 75 on 08/10 AM- Humulin decreased to 12 U- sugars have been elevated prior to this episode, will continue to monitor and adjust medication PRN - BSG ACHS w/ sliding insulin scale Diabetic peripheral neuropathy: - Continue Lyrica 100 mg BID - Neuropathy precautions Hyperlipidemia: Continue Atorvastatin 40 mg daily Parkinson's: Continue Sinemet 25/100, 2 tabs QID GERD: Continue Protonix 40 mg daiky, Carafate 1 g ACHS Depression: Continue Effexor XR 37.5 mg daily Chronic pain management: Continue Oxycodone ER 20 mg BID, Oxycodone 5 mg q6 hrs PRN GI Prophylaxis: Protonix, Colace BID, MiraLAX daily DVT Prophylaxis: TEDs/SCDs; chemical means held due to hematuria Code Status: LEVEL I, FULL Dispo: From home, lives w/ son and daughter- social organization professor consulted - PT/OT evaluations- ?acute rehab vs. home w/ PT and family support (Camelia Heller, PA-C) Reviewed: Pt Seen/Exam by Me (Joseline Downing, DO) History Pt is feeling better overall. Torres d/c'd. Tolerating PO. No chest pain or SOB. Agree with HPI/ROS as noted. (Joseline Downing, DO) General Appearance: WD/WN, no apparent distress Eye Exam: bilateral eye normal inspection, bilateral eye EOMI Respiratory: normal breath sounds, no respiratory distress Cardiovascular: normal peripheral pulses, regular rate, rhythm Gastrointestinal: non tender, soft Extremities: non-tender, no pedal edema Neurologic/Psychiatric: alert, normal mood/affect Skin Characteristics: normal color, warm/dry (Joseline Downing, DO) Assessment/Plan Agree with plan as outlined above UTI, cx with Klebsiella Change to PO abx and monitor Voiding trial Possibly cysto as outpt PT/OT recs for SNF vs rehab, however pt declines CM spoke with family who prefer home with HH, this is being arranged (Joseline Downing, DO)
[2016-08-10] MEDS: CEPHALEXIN MONOHYDRATE 500 MG CAP PO SCH ×2 (14:46→21:16)
[2016-08-10 16:02] VITALS: O2SAT 93
[2016-08-10 16:05] VITALS: BP 134/77; PULSE 69; TEMP 36.5; O2SAT 98
[2016-08-10 23:02] VITALS: BP 160/79; PULSE 77; TEMP 36.8; O2SAT 95
[2016-08-11] MEDS: SUCRALFATE 1 GM/10 ML UDC PO SCH ×4 (06:28→21:49)
[2016-08-11 08:08] VITALS: BP 143/72; PULSE 70; TEMP 36.4; O2SAT 97
[2016-08-11 08:18] VITALS: BP 115/74; PULSE 65
[2016-08-11] MEDS: PREGABALIN 50 MG CAP PO SCH ×2 (08:18→21:55)
[2016-08-11] MEDS: OXYCODONE HCL 20 MG TABCR (OXYCONTIN) PO SCH ×2 (08:18→21:55)
[2016-08-11] MEDS: CARVEDILOL 6.25 MG TAB PO SCH ×2 (08:19→21:51)
[2016-08-11] MEDS: ATORVASTATIN 20 MG TAB PO SCH (08:19)
[2016-08-11] MEDS: ASPIRIN 81 MG ECTAB PO SCH (08:19)
[2016-08-11] MEDS: CARBIDOPA/LEVODOPA 25/100MG TAB PO SCH ×3 (08:20→20:00)
[2016-08-11] MEDS: PANTOprazole SOD 40 MG TAB PO SCH (08:20)
[2016-08-11] MEDS: POLYETHYLENE (MIRALAX) 17 GM PACK PO SCH (08:20)
[2016-08-11] MEDS: CEPHALEXIN MONOHYDRATE 500 MG CAP PO SCH ×2 (08:20→21:50)
[2016-08-11] MEDS: VENLAFAXINE HCL XR 37.5 MG CAPXR PO SCH (08:21)
[2016-08-11] MEDS: DOCUSATE SODIUM 100 MG CAP PO SCH ×2 (08:21→21:51)
--- NOTE | 2016-08-11 08:58 | Progress Note ---
Subjective Date of Service: Aug 11, 2016. Subjective Pt evaluation today including: conversation w/ patient, chart review Voiding: no voiding problems Zhang catheter removed. Pt reports she is voiding well and feels she empties. Denies bothersome urinary symptoms. She reports she has been having hallucinations of people in the room that are not present. Her nurse is aware. Problem List Medical Problems: (1) Constipation Status: Acute (2) Dehydration Status: Acute (3) Failure of outpatient treatment Status: Acute (4) Hyperglycemia Status: Acute (5) Left sided abdominal pain Status: Acute (6) Leukocytosis Status: Acute (7) Nausea Status: Acute (8) Substernal chest pain Status: Acute (9) Urinary retention Status: Acute (10) UTI (urinary tract infection) Status: Acute (11) Vomiting Status: Acute (12) Weakness Status: Acute Review of Systems Constitutional: No fever Eyes: No worsening of vision ENT: No hearing loss Respiratory: No cough Abdomen: No nausea, No vomiting, No diarrhea Female : + see HPI, No dysuria, No urinary frequency, No incontinence Psychiatric: + see HPI Objective Vital Signs Date Time Temp Pulse Resp B/P (MAP) Pulse Ox O2 Delivery O2 Flow Rate FiO2 08/11/16 08:18 65 115/74 (88) 08/11/16 08:08 36.4 70 18 143/72 (95) 97 Room Air 08/10/16 23:02 36.8 77 18 160/79 (106) 95 Room Air 08/10/16 16:05 36.5 69 18 134/77 (96) 98 Room Air 08/10/16 16:02 93 Room Air Physical Exam General Appearance: WD/WN, no apparent distress ENT: hearing grossly normal Respiratory/Chest: no respiratory distress, no accessory muscle use Neurologic/Psychiatric: alert, normal mood/affect Skin: normal color, warm/dry Laboratory Results Last 24 Hours Test 08/10/16 11:02 08/10/16 16:57 08/10/16 20:32 08/11/16 07:52 Bedside Glucose 146 mg/dl 155 mg/dl 176 mg/dl Test 08/11/16 07:53 Bedside Glucose 174 mg/dl Assessment and Plan UTI, urinary retention Voiding well on her own per pt report. She is having visual hallucinations. Nursing aware. Will have her bladder scanned for PVR. If >250 reinsert zhang. Nothing further from standpoint. Will follow outpt as scheduled next week.
[2016-08-11 09:05] LABS: MEAN CELL VOLUME 87.4 fL (80-100); MEAN CORPUSCULAR HEMOGLOBIN 28.5 pg (25-34); MEAN CORPUSCULAR HGB CONC 32.6 g/dl (32-36); MEAN PLATELET VOLUME 11.7 fL (7.4-10.4); PLATELET COUNT 154 K/uL (130-400); RED BLOOD COUNT 3.89 M/uL (4.2-5.4); WHITE BLOOD COUNT 5.11 K/uL (4.8-10.8)
[2016-08-11 09:27] LABS: BUN/CREATININE RATIO 16.3 (10-20); CALCIUM 9.6 mg/dl (8.5-10.1); CREATININE 1.1 mg/dl (0.60-1.20); POTASSIUM 3.8 mmol/L (3.5-5.1)
[2016-08-11] MEDS: INSULIN HUMAN NPH SQ SCH ×2 (09:36→21:48)
[2016-08-11] MEDS: INSULIN ASPART 100 UNITS/ML 3 ML PEN SC SCH ×2 (09:36→21:49)
[2016-08-11 15:19] VITALS: BP 154/76; PULSE 67; TEMP 36.6; O2SAT 97
[2016-08-11 16:05] VITALS: O2SAT 93
--- NOTE | 2016-08-11 17:45 | Progress Note ---
Subjective Date of Service: Aug 11, 2016. Subjective Pt evaluation today including: conversation w/ patient, conversation w/ family , chart review Pt has been voiding without issues. No post-void residual on bladder scanning. Pt had hallucinations overnight and this AM. States she did not sleep well because of this. Tolerating PO without issue. Pt denies fever, SOB, chest pain , abd pain, n/v/c/d, LE pain or swelling. She does have slight burning with urination. Spoke with son and daughter. Both state that hallucinations have been happening intermittently at home for over a month. Pt questions if her medications are doing this to her per nursing. Daughter states she has been on sinamet for several months. It was supposed to be changed to BID from QID dosing, "but we hadn't picked up the new prescription yet". Problem List Medical Problems: (1) Constipation Status: Acute (2) Dehydration Status: Acute (3) Failure of outpatient treatment Status: Acute (4) Hyperglycemia Status: Acute (5) Left sided abdominal pain Status: Acute (6) Leukocytosis Status: Acute (7) Nausea Status: Acute (8) Substernal chest pain Status: Acute (9) Urinary retention Status: Acute (10) UTI (urinary tract infection) Status: Acute (11) Vomiting Status: Acute (12) Weakness Status: Acute Review of Systems All Other Systems: Reviewed and Negative Objective Vital Signs Date Time Temp Pulse Resp B/P (MAP) Pulse Ox O2 Delivery O2 Flow Rate FiO2 08/11/16 15:19 36.6 67 20 154/76 (102) 97 Room Air 08/11/16 08:18 65 115/74 (88) 08/11/16 08:08 36.4 70 18 143/72 (95) 97 Room Air 08/11/16 08:00 Room Air 08/10/16 23:02 36.8 77 18 160/79 (106) 95 Room Air Physical Exam General Appearance: WD/WN, no apparent distress Eyes: normal inspection, EOMI ENT: hearing grossly normal Neck: supple Respiratory/Chest: normal breath sounds, no respiratory distress Cardiovascular: regular rate, rhythm, no edema Abdomen: non tender, soft Extremities: non-tender, no pedal edema Neurologic/Psychiatric: alert, + pertinent finding (answers all yes/no questions, repsonds appropriately to commands) Skin: normal color, warm/dry Laboratory Results Last 24 Hours Test 08/10/16 20:32 08/11/16 07:52 08/11/16 07:53 08/11/16 11:26 Bedside Glucose 176 mg/dl 174 mg/dl 229 mg/dl White Blood Count 5.11 K/uL Red Blood Count 3.89 M/uL Hemoglobin 11.1 g/dL Hematocrit 34.0 % Mean Corpuscular Volume 87.4 fL Mean Corpuscular Hemoglobin 28.5 pg Mean Corpuscular Hemoglobin Concent 32.6 g/dl RDW Standard Deviation 45.4 fL RDW Coefficient of Variation 14.4 % Platelet Count 154 K/uL Mean Platelet Volume 11.7 fL Sodium Level 140 mmol/L Potassium Level 3.8 mmol/L Chloride Level 101 mmol/L Carbon Dioxide Level 31 mmol/L Anion Gap 8.0 mmol/L Blood Urea Nitrogen 18 mg/dl Creatinine 1.10 mg/dl Est Creatinine Clear Calc Drug Dose 46.0 ml/min Estimated GFR () 54.1 Estimated GFR (Non- 46.7 BUN/Creatinine Ratio 16.3 Random Glucose 152 mg/dl Calcium Level 9.6 mg/dl Test 08/11/16 16:10 Bedside Glucose 133 mg/dl Assessment and Plan The patient is an 80-year-old female with a past medical history significant for coronary disease with 10, chronic UTIs with bilateral hydronephrosis, colon cancer, hepatocellular cancer status post liver ablation, diabetes mellitus with neuropathy, Parkinson's disease, atrial fibrillation, and aortic stenosis, who presents emergency department with 3 days of lower back pain and urinary frequency and dysuria. Recurrent UTI w/ hematuria/bilateral hydronephrosis- on chronic suppressive therapy w/ Doxycycline: - Admit to med/surg - Renal US on 08/07: Moderate appearing bilateral hydronephrosis without significant change from comparison study dated 05/09/2016. Collapsed urinary bladder with Torres catheter in place. 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 - Bladder US on 08/08: The bladder was partially decompressed around a Torres catheter. There is no sonographic evidence of bladder wall thickening or mass lesion. Ureteral jets were identified. The distal ureters appear mildly dilated. - Torres placed and has since been d/c'd with no issues voiding, including no post-void residual - Pain managed w/ continued outpt regimen of OxyContin 20 mg BID and Roxicodone 5 mg q6 hrs PRN - Ceftriaxone 1 g IV daily (started on 08/08); Doxycycline held -- d/c IV antibiotics and start Keflex on 08/10- pt states she has taken in the past w/ no ADR - UCx- Klebsielleae pneumoniae- sensitives reviewed - BCx- NGTD - Consult urology, appreciate recommendations- follows w/ Dr. Richard -- f/u outpatient for possible cysto Anemia, ?secondary to hematuria vs. other etiology: - Following H&H- STABLE - Reviewed iron pain, b12/folate, and TSH - Stool Hemoccult pending Hypomagnesemia at 1.7 on 08/09- RESOLVED: - Replace w/ IV 1g Mag x1 - Follow mag level and replace PRN AGUS on CKD stage III, baseline Cr. 1.1-1.2- RESOLVED: Follow PRP CAD/aortic stenosis/a.fib: - Isordil 20 mg BID held due to hypotension - ASA 81 mg daily, Coreg 6.25 mg BID HTN- STABLE: - Isordil and Coreg as above -- Hypotensive episodes on 08/08- RESOLVED: Isordil held and 500cc bolus of IVF given T2DM: - Continue Humulin N 24 units SQ QAM and 24 units SQ afternoon and Humalog 4 units SQ BID -- BSG of 75 on 08/10 AM- Humulin decreased to 12 U- sugars have been elevated prior to this episode, will continue to monitor and adjust medication PRN - BSG ACHS w/ sliding insulin scale Diabetic peripheral neuropathy: - Continue Lyrica 100 mg BID - Neuropathy precautions Hyperlipidemia: Continue Atorvastatin 40 mg daily Parkinson's: Change Sinemet 25/100, 2 tabs QID to BID as recommended by outpt Possibly causing hallucinations and pt associates them with this medication GERD: Continue Protonix 40 mg daiky, Carafate 1 g ACHS Depression: Continue Effexor XR 37.5 mg daily Chronic pain management: Continue Oxycodone ER 20 mg BID, Oxycodone 5 mg q6 hrs PRN GI Prophylaxis: Protonix, Colace BID, MiraLAX daily DVT Prophylaxis: TEDs/SCDs; chemical means held due to hematuria Code Status: LEVEL I, FULL Dispo: From home, lives w/ son and daughter- perinatal social worker consulted - PT/OT evaluations- ?acute rehab vs. home w/ PT and family support. Pt and family decline rehab, planning for home with HH
[2016-08-12] MEDS ORDERED: CEPHALEXIN MONOHYDRATE 500 MG CAP PO SCH
[2016-08-12 00:05] VITALS: BP 123/66; PULSE 69; TEMP 36.5; O2SAT 93
[2016-08-12] MEDS: SUCRALFATE 1 GM/10 ML UDC PO SCH ×3 (06:20→15:54)
[2016-08-12 07:40] VITALS: BP 153/84; PULSE 71; TEMP 36.4; O2SAT 97
[2016-08-12] MEDS: INSULIN HUMAN NPH SQ SCH (09:05)
[2016-08-12] MEDS: INSULIN ASPART 100 UNITS/ML 3 ML PEN SC SCH (09:05)
[2016-08-12] MEDS: CEPHALEXIN MONOHYDRATE 500 MG CAP PO SCH ×2 (09:09→17:49)
[2016-08-12] MEDS: OXYCODONE HCL 20 MG TABCR (OXYCONTIN) PO SCH (09:10)
[2016-08-12] MEDS: VENLAFAXINE HCL XR 37.5 MG CAPXR PO SCH (09:10)
[2016-08-12] MEDS: CARBIDOPA/LEVODOPA 25/100MG TAB PO SCH (09:11)
[2016-08-12] MEDS: PREGABALIN 50 MG CAP PO SCH (09:11)
[2016-08-12] MEDS: PANTOprazole SOD 40 MG TAB PO SCH (09:12)
[2016-08-12] MEDS: ASPIRIN 81 MG ECTAB PO SCH (09:12)
[2016-08-12] MEDS: CARVEDILOL 6.25 MG TAB PO SCH (09:12)
[2016-08-12] MEDS: DOCUSATE SODIUM 100 MG CAP PO SCH (09:12)
[2016-08-12] MEDS: ATORVASTATIN 20 MG TAB PO SCH (09:12)
[2016-08-12] MEDS: POLYETHYLENE (MIRALAX) 17 GM PACK PO SCH (09:13)
[2016-08-12 09:58] LABS: MEAN CELL VOLUME 86.6 fL (80-100); MEAN CORPUSCULAR HGB CONC 31.1 g/dl (32-36); MEAN PLATELET VOLUME 11.1 fL (7.4-10.4); PLATELET COUNT 154 K/uL (130-400); RED BLOOD COUNT 4.04 M/uL (4.2-5.4); WHITE BLOOD COUNT 5.16 K/uL (4.8-10.8)
[2016-08-12 10:28] LABS: BUN/CREATININE RATIO 16.3 (10-20); CALCIUM 9.4 mg/dl (8.5-10.1); CREATININE 1.2 mg/dl (0.60-1.20); POTASSIUM 4.5 mmol/L (3.5-5.1)
[2016-08-12 15:01] VITALS: BP 125/80; PULSE 64; TEMP 36.5; O2SAT 97
[2016-08-12] MEDS ORDERED: SNM/25100 PO (15:42)
[2016-08-12] MEDS ORDERED: KFL500 PO (15:42)
--- NOTE | 2016-08-12 15:43 | Discharge Instructions ---
Discharge Instructions Date of Service Aug 12, 2016. Admission Reason for Admission: Gross Hematuria, Recurrent Urinary Tract Infection Discharge Discharge Diagnosis / Problem: Recurrent UTI Discharge Goals Goal(s): Decrease discomfort, Improve function, Increase independence Activity Recommendations Activity Limitations: resume your previous activity . Instructions / Follow-Up Instructions / Follow-Up Dr. Richard (urology) next week Dr. Villanueva in 1-2 weeks Current Hospital Diet Patient's current hospital diet: AHA Diet (Heart Healthy), Diabetes Type 2 Diet Discharge Diet Recommended Diet: Diabetes Type 2 Diet Pending Studies Studies pending at discharge: no Medical Emergencies . Who to Call and When: Medical Emergencies: If at any time you feel your situation is an emergency, please call 911 immediately. . Non-Emergent Contact Non-Emergency issues call your: Primary Care Provider . . "Provider Documentation" section prepared by Joseline Downing. . VTE Core Measure Inpt VTE Proph given/why not?: SCD's
--- NOTE | 2016-08-12 15:46 | Discharge Summary ---
Discharge Summary Date of Service Aug 12, 2016. Discharge Summary Admission Date: Aug 07, 2016 at 17:57 Discharge Date: Aug 12, 2016 Discharge Disposition: Home with services Principal Diagnosis: Recurrent UTI Problems/Secondary Diagnoses: CAD Chronic UTI Colon cancer Hepatocellular cancer s/p liver ablation HTN DM with peripheral neuropathy Parkinson's Afib Aortic stenosis Consultations: Urology Medication Reconciliation New Medications: Cephalexin Monohydrate (Cephalexin) 500 Mg Cap 500 MG PO BID for 8 Days, #16 CAP Levodopa/Carbidopa (Sinemet 25MG/100MG) 1 Ea Tab 2 TAB PO BID for 30 Days, TAB Continued Medications: Aspirin (Aspirin) 81 Mg Chw 81 MG PO QAM, 3 Refills Atorvastatin (Lipitor) 40 Mg Tab 40 MG PO DAILY, TAB Carvedilol (Coreg) 6.25 Mg Tab 6.25 MG PO AMPM Docusate Sodium (Colace) 100 Mg Cap 100 MG PO BID Folic Acid (Folvite) 1 Mg Tab 1 MG PO QAM, TAB Insulin Human NPH (Humulin N) 1,000 Units/10 Ml Inj 24 UNITS SQ QAM Insulin Human NPH (Humulin N) 1,000 Units/10 Ml Inj 24 UNITS SQ QPM Insulin Lispro (Human) (Humalog) 100 Unit/Ml Inj 4 UNITS SC AMPM Isosorbide Dinitrate (Isordil) 20 Mg Tab 20 MG PO BID@0700,1200 for 30 Days, #60 TAB Oxycodone HCl (Oxycodone HCl ER) 20 Mg Tab 20 MG PO BID Oxycodone HCl (Oxycodone HCl) 5 Mg Tab 5 MG PO Q6 PRN for Pain Pantoprazole (Protonix) 40 Mg Tab 40 MG PO QAM, #30 TAB Polyethylene Glycol 3350 (Miralax) 1 Pow Pow 17 GM PO DAILY, #255 GM Pregabalin (Lyrica) 50 Mg Cap 100 MG PO BID Sucralfate (Sucralfate) 1 Gm/10 Ml Susp 1 GM PO ACHS for 7 Days, #300 ML Venlafaxine Hcl (Effexor Xr) 37.5 Mg Cap 1 CAP PO QAM for 30 Days, #30 CAP 1 Refill Discontinued Medications: Carbidopa/Levodopa (Sinemet 25MG/100MG) Tab 2 TABS PO QID, TAB ADMINISTRATION TIMES 8AM,12,4PM,8PM Doxycycline (Monohydrate) (Doxycycline) 100 Mg Cap 100 MG PO DAILY Discharge Exam Nursing notes that pt slept all night last night and did not ring for c/o hallucinations. She denies hallucinations overnight, however family who was present yesterday evening reported to pt's daughter that she was having them last night before they left. Pt's daughter tells me today that pt has only had hallucinations one other time that she is aware of and that was after being hospitalized at [facility] for several days. She lives with pt and is uncertain why pt's son told me this has been happening intermittently over the last month. She told me yesterday the sinamet was started "several months ago" , but tells me today it was started 1.5 years ago. She states pt has been glassy eyed. During exam, pt denies fever, SOB, chest pain, abd pain, n/v/c/d, LE pain or swelling. She has been tolerating PO. Pt states she is very tired right now and would like to get back in bed. She is having mild burning with urination, but this is improving. ROS reviewed and otherwise neg When I suggested that hallucinations may be due to pain medications, both pt and daughter state that is not possible. Daughter Devin tells me she has been on these medications for "a long time" and no issues in the past. She states that pt takes oxy ER 20mg BID scheduled with 5mg IR PRN at home. Mid-conversation while daughter (Devin) was asking me a question and before I could clarify that daughter would be agreeable to pt d/c today, pt's cell phone lost service. I called her cell phone multiple times and it went straight to voicemail. After 3 attempts to redial, I did LMOM. I called home number listed for Devin and pt's brother answered (as he did the day prior to that number), who informed me that pt was at work and gave me that number to call ( [phone]). This number was not answered and I LMOM for return call. In the interim, pt's other daughter and several other family members arrived to take pt home. Nursing explained to them the above communication issue and they requested nursing call me to ensure I had the correct work number for Devin, which was clarified. Shortly after, family asked nursing to call me to let me know that Devin was at a and would not have service until 4p. They would like to take pt home while they are here in [place]. Again informed by nursing that I had been unable to clarify this with certainty with Devin. Family decided to leave [facility], despite it being close to the time when Devin would be available, however called back to let nursing know that Devin had obtained use of a different cell phone and to call [phone]. I did call that number around 3:30p and Devin was irate with me as she had been told by her family that pt was not allowed to be d/c'd to other family members. I did inform Devin that this was not the case and that it was actually a matter of needing to clarify with Devin that she was agreeable to her mother's d/c back to her care, which I was in the process of doing when her phone disconnected. I informed her that as she is the POA and the person with whom pt lives, I was not able to confirm d/c with other family members in the event that POA/primary health care coach was not agreeable to this. I informed her that nursing had informed family of this, to which she replied "How would a nurse even know who is POA?". I informed her that this is information on the pt's chart to which she did not reply. Devin then informed me that family had left and could not come back tonight because it is [address]. She continued to express anger that I had not d/c'd pt with other family members and would have to stay another night in the hospital. I advised her that pt could be d/c'd home today at any time. She again became irate that pt was not d/c'd home with family earlier to which I again informed Deivn it was not possible due to inability to finish conversation with her. "I am tired of talking about this. I will pick her up at 6:30 or sooner after I leave this . She better be ready when I get there." Physical Exam: General Appearance: WD/WN, no apparent distress Respiratory/Chest: normal breath sounds, no respiratory distress Cardiovascular: regular rate, rhythm, no edema Abdomen / GI: non tender, soft Extremities: no calf tenderness, no pedal edema Neurologic/Psychiatric: alert (but drowsy), oriented x 3 Skin: normal color, warm/dry Hospital Course The patient is an 80-year-old female with a past medical history significant for coronary disease with /10, chronic UTIs with bilateral hydronephrosis, colon cancer, hepatocellular cancer status post liver ablation, diabetes mellitus with neuropathy, Parkinson's disease, atrial fibrillation, and aortic stenosis, who presented emergency department with 3 days of lower back pain and urinary frequency and dysuria. Recurrent UTI w/ hematuria/bilateral hydronephrosis- on chronic suppressive therapy w/ Doxycycline: - Renal US on 08/07: Moderate appearing bilateral hydronephrosis without significant change from comparison study dated 05/09/2016. Collapsed urinary bladder with Zhang catheter in place. 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 - Bladder US on 08/08: The bladder was partially decompressed around a Zhang catheter. There is no sonographic evidence of bladder wall thickening or mass lesion. Ureteral jets were identified. The distal ureters appear mildly dilated. - Zhang placed on admission and has since been d/c'd with no urinary retention, including no post-void residual noted on bladder scan Pt does have mild burning with urination, which is likely related to zhang. I did advise both pt and daughter that this will likely cause some irritation while it heals - Pain managed w/ continued outpt regimen of OxyContin 20 mg BID and Roxicodone 5 mg q6 hrs PRN - Ceftriaxone 1 g IV daily (started on 08/08); Doxycycline held -- d/c IV antibiotics and start Keflex on 08/10- pt states she has taken in the past w/ no ADR--I did discuss abx choice with daughter prior to d/c To be sent with home doses of keflex to avoid issues with filling scripts at later d/c time - UCx- Klebsielleae pneumoniae- sensitives reviewed - BCx- NGTD - Consult urology, appreciate recommendations- follows w/ Dr. Richard -- f/u outpatient for possible cysto Daughter was advised to discuss need for ongoing UTI proph abx at that time Anemia, ?secondary to hematuria vs anemia of chronic disease - Following H&H- STABLE and no need for transfusion Hb on d/c is 10.9 - Reviewed iron pain, b12/folate, and TSH - Stool Hemoccult neg Hypomagnesemia at 1.7 on 08/09- RESOLVED: - Replace w/ IV 1g Mag x1 AGUS on CKD stage III, baseline Cr. 1.1-1.2- RESOLVED CAD/aortic stenosis/a.fib: - Isordil 20 mg BID held due to hypotension but since resumed and tolerating - ASA 81 mg daily, Coreg 6.25 mg BID HTN- STABLE: - Isordil and Coreg as above -- Hypotensive episodes on 08/08- RESOLVED: Isordil held and 500cc bolus of IVF given T2DM: - Continue Humulin N 24 units SQ QAM and 24 units SQ afternoon and Humalog 4 units SQ BID -- Did need to decrease humulin dosing due to BSG of 75 on 08/10 AM- Humulin decreased to 12 U- sugars have been elevated prior to this episode, this is likely related to difference in PO intake during hospitalization vs home diet and can resume home insulin use on d/c Diabetic peripheral neuropathy: - Continue Lyrica 100 mg BID - Neuropathy precautions Hyperlipidemia: Continue Atorvastatin 40 mg daily Parkinson's: Changed Sinemet 25/100, 2 tabs QID to BID as recommended by outpt Possibly causing hallucinations and pt associates them with this medication GERD: Continue Protonix 40 mg daiky, Carafate 1 g ACHS Depression: Continue Effexor XR 37.5 mg daily Chronic pain management: Continue Oxycodone ER 20 mg BID, Oxycodone 5 mg q6 hrs PRN Hallucinations: several possible etiologies, including sundowning in a Parkinson 's pt out of home environment, drug side effect from sinemet, or over medication with opiod narcotics Repeat CBC and PRP on day of d/c are WNL Pt exam is as above, no fevers or other VS issues to suggest new infection and urine sensitivity is appropriate for cephalosporins I did discuss this with pt and in detail with daughter and son on several occasions. Onset, frequency, and timing of occurrences differs between family members making it difficult to fully deduce. I did decrease pt's sinemet to BID dosing as daughter informed me that this was recommended by prescribing physician but they had not yet done so "because we hadn't picked up the prescription yet". I am uncertain as to what this means given there was no change in dose, but rather frequency. I did inform both pt and daughter that this change was made yesterday. I also feel that some of pt's issues could be related to her pain medication regimen. I did attempt to discuss this with pt and daughter Devin, however Devin was adamant that this could not be this case. I did attempt to discuss age limiting the ability of liver to clear these medications as well as when pt was younger, however this was dismissed. I would advise PCP and/or prescriber of this medication to continue to address this with pt and family and decrease these doses given pt's age and other medical co-morbidities. As soon as pain medication adjustment is mentioned, daughter becomes adamant that this issue of hallucinations was never happening prior other than when she was at [facility]. These hallucinations could definitely be underlying dementia/sundowning that only becomes evident when pt is out of her home environment and given inconsistencies in details regarding these events, it is hard to say for sure that this is absolutely the cause. Dispo: From home, lives w/ son and daughter- social media sr strategy manager consulted - PT/OT evaluations- rec for acute rehab, however pt and family are refusing rehab, planning for home with HH instead. I did advise that pt is high risk for falls and readmission and would likely do better with short term rehab, however this is being flatly refused. Total Time Spent: Greater than 30 minutes This includes examination of the patient, discharge planning, medication reconciliation, and communication with other providers. Discharge Instructions Please refer to the electronic Patient Visit Report (Discharge Instructions) for additional information. Follow-Up Dr. Richard (urology) next week Dr. Villanueva in 1-2 weeks Additional Copies To Krishna Villanueva M.D.; Shant Richard MD, Urology
[2016-08-12 15:48] VITALS: BP 125/80; PULSE 64; TEMP 36.5; O2SAT 97
[2016-08-12] MEDS ORDERED: CEPHALEXIN MONOHYDRATE 500 MG CAP PO ONE (16:00)
[2016-09-25] MEDS ORDERED: CEFU500T16 PO (12:56)
[2016-09-25] MEDS ORDERED: PHEN-1042 PO (12:57)
== END 2016-08-12 18:24 | disposition home health service (06) | DRG 690 ==
LOC: C.EDB 11:24 → C.MS4W 17:57 → EDBEDREQTM 19:05 → EDBEDREQSVC 19:05 → ENRESERV 19:14
PROVIDERS: ADMIT Hospitalist; ATTEND Family Medicine
DX: N13.6 Pyonephrosis (principal); F05 Delirium due to known physiological condition; E87.1 Hypo-osmolality and hyponatremia; C22.0 Liver cell carcinoma; C18.9 Malignant neoplasm of colon, unspecified; D50.0 Iron deficiency anemia secondary to blood loss (chronic); D63.8 Anemia in other chronic diseases classified elsewhere; I25.10 Atherosclerotic heart disease of native coronary artery without angina pectoris; N17.9 Acute kidney failure, unspecified; N39.0 Urinary tract infection, site not specified; N18.3 Chronic kidney disease, stage 3 (moderate); F32.9 Major depressive disorder, single episode, unspecified; I95.9 Hypotension, unspecified; E78.5 Hyperlipidemia, unspecified; I48.91 Unspecified atrial fibrillation; I35.0 Nonrheumatic aortic (valve) stenosis; G20 Parkinson's disease; E11.42 Type 2 diabetes mellitus with diabetic polyneuropathy; E11.22 Type 2 diabetes mellitus with diabetic chronic kidney disease; I12.9 Hypertensive chronic kidney disease with stage 1 through stage 4 chronic kidney disease, or unspecified chronic kidney disease; Z98.890 Other specified postprocedural states; G89.4 Chronic pain syndrome; R33.9 Retention of urine, unspecified; T40.2X5A Adverse effect of other opioids, initial encounter; T42.8X5A Adverse effect of antiparkinsonism drugs and other central muscle-tone depressants, initial encounter; Y92.230 Patient room in hospital as the place of occurrence of the external cause; K21.9 Gastro-esophageal reflux disease without esophagitis; Z95.5 Presence of coronary angioplasty implant and graft; Z90.49 Acquired absence of other specified parts of digestive tract; Z79.82 Long term (current) use of aspirin; Z79.899 Other long term (current) drug therapy; Z79.4 Long term (current) use of insulin; Z79.891 Long term (current) use of opiate analgesic

== ENCOUNTER 2016-08-15 12:23 | Emergency (ER) | payer OTHER ==
[~2016-08-15] VITALS: Ht 167.6 cm; Wt 91.0 kg
[~2016-08-15 12:23] MED LIST changes: -CARB25TA12 PO; +INSU100I SC; +KFL500 PO; -NVLGI/PEN SQ; -ONDA4TAB46 PO; +OXYC-653 PO; -OXYC20TA50 PO; +POLY335019 PO; +RXC/5 PO; +SNM/25100 PO
[2016-08-15 12:27] VITALS: TEMP 36.9; Ht 167.6 cm; Wt 91.0 kg
[2016-08-15] MEDS ORDERED: ONDANSETRON INJ 2 MG/ML 2 ML VIAL IV STA (12:48)
[2016-08-15] MEDS ORDERED: SODIUM CHLORIDE 0.9% 1000ML 500 ML IV STA (12:48)
[2016-08-15] MEDS ORDERED: SODIUM CHLORIDE 0.9% 1000ML 1,000 ML IV STA (12:48)
[2016-08-15 13:03] LABS: BASO % 0.1 %; BASO ABS # 0.01 K/uL (0-0.2); COMPLETE YES; EOS % 2.9 %; HEMATOCRIT 35.2 % (37-47); IG% 0.1 %; LYMPH % 19.3 %; LYMPH ABS # 1.34 K/uL (1.2-3.4); MEAN CELL VOLUME 88.4 fL (80-100); MEAN CORPUSCULAR HEMOGLOBIN 27.6 pg (25-34); MEAN CORPUSCULAR HGB CONC 31.3 g/dl (32-36); MONO % 10.5 %; NEUT % 67.1 %; PLATELET COUNT 185 K/uL (130-400); RED BLOOD COUNT 3.98 M/uL (4.2-5.4); WHITE BLOOD COUNT 6.96 K/uL (4.8-10.8)
[2016-08-15 13:14] LABS: PARTIAL THROMBOPLASTIN RATIO 1.1; PROTHROMBIN TIME (PATIENT) 10.2 SECONDS (9.0-12.0)
[2016-08-15 13:27] LABS: ALT/SGPT 26 U/L (12-78); AST/SGOT 23 U/L (15-37); BLOOD UREA NITROGEN 23 mg/dl (7-18); BUN/CREATININE RATIO 20.7 (10-20); CALCIUM 8.9 mg/dl (8.5-10.1); CARBON DIOXIDE 31 mmol/L (21-32); CHLORIDE 105 mmol/L (98-107); GLUCOSE 102 mg/dl (70-99); POTASSIUM 4.8 mmol/L (3.5-5.1); SODIUM 140 mmol/L (136-145)
[2016-08-15 13:37] LABS: ALB/GLOB RATIO 0.7 (0.9-2); ALKALINE PHOSPHATASE 132 U/L (45-117)
--- NOTE | 2016-08-15 14:00 | DIAGNOSTIC IMAGING REPORT ---
CHEST ONE VIEW PORTABLE HISTORY:80 yearsFemaleEVALUATE ALTERED MENTAL STATUS/WEAKNESS COMPARISON: Chest radiograph 02/16/2016. TECHNIQUE: Portable upright AP view of the chest. FINDINGS: Cardiomediastinal hilar silhouettes are within normal limits. There is atherosclerosis of the aorta. No pneumothorax, pleural effusion, focal airspace consolidation or overt pulmonary edema. There is unchanged mild right hemidiaphragmatic elevation. The bones appear grossly intact. There appears to have been prior resection of the distal right clavicle. Prior cholecystectomy. IMPRESSION: No acute cardiopulmonary process. The above report was generated using voice recognition software. It may contain grammatical, syntax or spelling errors. Electronically signed by: Marito Grimes M.D. 08/15/2016 1:59 PM Dictated Date/Time: 08/15/2016 1:58 PM
--- NOTE | 2016-08-15 14:51 | EMERGENCY ROOM VISIT NOTE ---
History Report prepared by Liane: Gopal Rodriguez Under the Supervision of: Dr. Mario Cobb M.D. First contact with patient: 12:43 Chief Complaint: DIARRHEA Stated Complaint: DIARRHEA,VOMITING Nursing Triage Summary: pt to the ED with c/o abd pain n/v/d since bein dc from hospital 2 days ago pt is being tx for a UTI History of Present Illness The patient is a 80 year old female who presents to the Emergency Room with complaints of persistent diarrhea starting 2 days ago. She was admitted 8 days ago for UTI where she received Rocephin and Cipro. She was discharged 3 days ago on Keflex. Since discharge, she has severe generalized weakness. 2 days ago , the patient took Keflex and started having nausea, vomiting, and large amounts of diarrhea soon after. She took another antibiotic the next morning and had nausea, vomiting, and diarrhea again. She had 4 episodes of diarrhea today. She had 2 hash browns this morning without nausea or vomiting. The patient looked pale this morning. She also has shortness of breath and mild diffuse abdominal pain. She was referred to the Emergency Room by her PCP for concerns about C-Diff. She does not have any prior history of C-Diff. The patient has taken Keflex before without any similar symptoms. She has been on Doxycycline for the past 8 months for recurrent UTIs. She denies fevers, chills , cough, or any other complaints. HPI is obtained as per daughter. Source of History: patient, family Onset: 2 days ago Position: other (global) Quality: other (diarrhea) Timing: other (persistent) Associated Symptoms: + nausea, + vomiting, + weakness (generalized), No fevers, No chills, No cough Review of Systems See HPI for pertinent positives & negatives. A total of 10 systems reviewed and were otherwise negative. Past Medical & Surgical Medical Problems: (1) Atrial fibrillation (2) Chronic pain syndrome (3) Coronary artery disease (4) Diabetes mellitus, type 2 (5) Diabetic neuropathy (6) GERD (gastroesophageal reflux disease) (7) Gross hematuria (8) History liver mass (9) Hypertension (10) Parkinson's disease (11) Recurrent urinary tract infection (12) Status post resection liver mass (13) UTI (urinary tract infection) Surgical Problems: (1) Status post cardiac catheterization (2) Status post cholecystectomy (3) Status post coronary artery stent placement Family History Cancer SISTER SISTER Diabetes mellitus MOTHER Lung disease FATHER Myocardial infarction BROTHER BROTHER Tuberculosis Social History Smoking Status: Never Smoker Alcohol Use: none Drug Use: none Marital Status: single Housing Status: assisted living Occupation Status: retired Current/Historical Medications Scheduled Aspirin (Aspirin), 81 MG PO QAM Atorvastatin (Lipitor), 40 MG PO DAILY Carvedilol (Coreg), 6.25 MG PO AMPM Cephalexin Monohydrate (Cephalexin), 500 MG PO BID Docusate Sodium (Colace), 100 MG PO BID Folic Acid (Folvite), 1 MG PO QAM Insulin Human NPH (Humulin N), 24 UNITS SQ QAM Insulin Human NPH (Humulin N), 24 UNITS SQ QPM Insulin Lispro (Human) (Humalog), 4 UNITS SC AMPM Isosorbide Dinitrate (Isordil), 20 MG PO BID@0700,1200 Levodopa/Carbidopa (Sinemet 25MG/100MG), 2 TAB PO BID Oxycodone HCl (Oxycodone HCl ER), 20 MG PO BID Pantoprazole (Protonix), 40 MG PO QAM Polyethylene Glycol 3350 (Miralax), 17 GM PO DAILY Pregabalin (Lyrica), 100 MG PO BID Sucralfate (Sucralfate), 1 GM PO ACHS Venlafaxine Hcl (Effexor Xr), 1 CAP PO QAM Scheduled PRN Oxycodone HCl (Oxycodone HCl), 5 MG PO Q6 PRN for Pain Allergies Coded Allergies: Iodinated Diagnostic Agents (Verified Allergy, Intermediate, IV CONTRAST- HIVES, 02/16/16) Azithromycin (Verified Allergy, Mild, dizzy, nauseous (per patient), ) from allergy list supplied by PCP - Dr. Villanueva in [place] Ciprofloxacin (Verified Allergy, Unknown, unknown, 02/16/16) from allergy list supplied by PCP Dar Villanueva in [place] Nitrofurantoin (Verified Allergy, Unknown, unknown, 02/16/16) from allergy list supplied by PCP - Dr. Villanueva in [place] Sulfamethoxazole w/Trimethoprim (Verified Allergy, Unknown, patient unsure , 02/16/16) from allergy list supplied by PCP Dar Villanueva in [place] Acarbose (Verified Adverse Reaction, Mild, GI SYMPTOMS, 02/16/16) from allergy list supplied by PCP Dar Villanueva in [place] Metformin (Verified Adverse Reaction, Mild, GI SYMPTOMS, 02/16/16) from allergy list supplied by PCP Dar Villanueva in [place] Penicillins (Verified Adverse Reaction, Mild, dizzy, nausous (per patient ) tolerated zosyn [id number], 02/16/16) from allergy list supplied by PCP Dar Villanueva in [place] Troglitazone (Verified Adverse Reaction, Mild, GI SYMPTOMS, 02/16/16) from allergy list supplied by PCP Dar Villanueva in [place] Physical Exam Vital Signs Date Time Temp Pulse Resp B/P (MAP) Pulse Ox O2 Delivery O2 Flow Rate FiO2 08/15/16 15:50 87 16 155/62 95 08/15/16 14:28 77 16 148/78 95 Room Air 08/15/16 13:16 79 08/15/16 13:12 77 20 185/111 92 08/15/16 12:27 36.9 76 20 107/62 96 Room Air Physical Exam GENERAL: Patient is in no acute distress. HEENT: No acute trauma, normocephalic atraumatic, mucous membranes moist, no nasal congestion, no scleral icterus. NECK: No stridor, no adenopathy, no meningismus, trachea is midline. LUNGS: Clear to auscultation bilaterally, no wheeze, no rhonchi, breath sounds equal. HEART: 2/6 systolic murmur, regular rate and rhythm. ABDOMEN: Soft, nontender, bowel sounds positive, no hernias, no peritonitis. EXTREMITIES: No cyanosis or edema, full range of motion of all the joints without pain or difficulty, no signs for acute trauma. NEUROLOGIC: Oriented x 3, no acute motor or sensory deficits, no focal weakness. SKIN: No rash, no jaundice, no diaphoresis. Medical Decision & Procedures ER Provider Diagnostic Interpretation: X-ray results as stated below per interpretation by me and the radiologist: CHEST ONE VIEW PORTABLE HISTORY:80 yearsFemaleEVALUATE ALTERED MENTAL STATUS/WEAKNESS COMPARISON: Chest radiograph 02/16/2016. TECHNIQUE: Portable upright AP view of the chest. FINDINGS: Cardiomediastinal hilar silhouettes are within normal limits. There is atherosclerosis of the aorta. No pneumothorax, pleural effusion, focal airspace consolidation or overt pulmonary edema. There is unchanged mild right hemidiaphragmatic elevation. The bones appear grossly intact. There appears to have been prior resection of the distal right clavicle. Prior cholecystectomy. IMPRESSION: No acute cardiopulmonary process. The above report was generated using voice recognition software. It may contain grammatical, syntax or spelling errors. Electronically signed by: Marito Grimes M.D. 08/15/2016 1:59 PM Dictated Date/Time: 08/15/2016 1:58 PM Laboratory Results 08/15/16 12:40 Red Blood Count 3.98, Mean Corpuscular Volume 88.4, Mean Corpuscular Hemoglobin 27.6, Mean Corpuscular Hemoglobin Concent 31.3, Mean Platelet Volume 11.0, Neutrophils (%) (Auto) 67.1, Lymphocytes (%) (Auto) 19.3, Monocytes (%) (Auto) 10.5, Eosinophils (%) (Auto) 2.9, Basophils (%) (Auto) 0.1, Neutrophils # (Auto ) 4.67, Lymphocytes # (Auto) 1.34, Monocytes # (Auto) 0.73, Eosinophils # (Auto ) 0.20, Basophils # (Auto) 0.01 08/15/16 12:40 Test 08/15/16 12:40 08/15/16 13:47 White Blood Count 6.96 K/uL (4.8-10.8) Red Blood Count 3.98 M/uL (4.2-5.4) Hemoglobin 11.0 g/dL (12.0-16.0) Hematocrit 35.2 % (37-47) Mean Corpuscular Volume 88.4 fL (80-100) Mean Corpuscular Hemoglobin 27.6 pg (25-34) Mean Corpuscular Hemoglobin Concent 31.3 g/dl (32-36) Platelet Count 185 K/uL (130-400) Mean Platelet Volume 11.0 fL (7.4-10.4) Neutrophils (%) (Auto) 67.1 % Lymphocytes (%) (Auto) 19.3 % Monocytes (%) (Auto) 10.5 % Eosinophils (%) (Auto) 2.9 % Basophils (%) (Auto) 0.1 % Neutrophils # (Auto) 4.67 K/uL (1.4-6.5) Lymphocytes # (Auto) 1.34 K/uL (1.2-3.4) Monocytes # (Auto) 0.73 K/uL (0.11-0.59) Eosinophils # (Auto) 0.20 K/uL (0-0.5) Basophils # (Auto) 0.01 K/uL (0-0.2) RDW Standard Deviation 47.1 fL (36.4-46.3) RDW Coefficient of Variation 14.6 % (11.5-14.5) Immature Granulocyte % (Auto) 0.1 % Immature Granulocyte # (Auto) 0.01 K/uL (0.00-0.02) Prothrombin Time 10.2 SECONDS (9.0-12.0) Prothromb Time International Ratio 1.0 (0.9-1.1) Activated Partial Thromboplast Time 29.4 SECONDS (21.0-31.0) Partial Thromboplastin Ratio 1.1 Anion Gap 4.0 mmol/L (3-11) Est Creatinine Clear Calc Drug Dose 44.8 ml/min Estimated GFR () 54.1 Estimated GFR (Non- 46.7 BUN/Creatinine Ratio 20.7 (10-20) Calcium Level 8.9 mg/dl (8.5-10.1) Total Bilirubin 0.3 mg/dl (0.2-1) Aspartate Amino Transf (AST/SGOT) 23 U/L (15-37) Alanine Aminotransferase (ALT/SGPT) 26 U/L (12-78) Alkaline Phosphatase 132 U/L (45-117) Total Creatine Kinase 48 U/L (26-192) Troponin I < 0.015 ng/ml (0-0.045) Total Protein 7.3 gm/dl (6.4-8.2) Albumin 3.0 gm/dl (3.4-5.0) Globulin 4.3 gm/dl (2.5-4.0) Albumin/Globulin Ratio 0.7 (0.9-2) Thyroid Stimulating Hormone (TSH) 1.610 uIu/ml (0.300-4.500) Urine Color YELLOW Urine Appearance CLEAR (CLEAR) Urine pH 6.5 (4.5-7.5) Urine Specific [place] 1.015 (1.000-1.030) Urine Protein NEG (NEG) Urine Glucose (UA) NEG (NEG) Urine Ketones NEG (NEG) Urine Occult Blood NEG (NEG) Urine Nitrite NEG (NEG) Urine Bilirubin NEG (NEG) Urine Urobilinogen NEG (NEG) Urine Leukocyte Esterase SMALL (NEG) Urine WBC (Auto) 5-10 /hpf (0-5) Urine RBC (Auto) 0-4 /hpf (0-4) Urine Hyaline Casts (Auto) 0 /lpf (0-5) Urine Epithelial Cells (Auto) 5-10 /lpf (0-5) Urine Bacteria (Auto) NEG (NEG) Laboratory results reviewed by me. Medications Administered Medications (Trade) Dose Ordered Sig/Nadege Route Start Time Stop Time Status Last Admin Dose Admin Sodium Chloride 500 ml @ 999 mls/hr Q31M STAT IV 08/15/16 12:48 08/15/16 13:18 DC 08/15/16 14:23 999 MLS/HR Ondansetron HCl (Zofran Inj) 4 mg NOW STAT IV 08/15/16 12:48 08/15/16 12:51 DC 08/15/16 14:24 4 MG Sodium Chloride 1,000 ml @ 125 mls/hr Q8H STAT IV 08/15/16 12:48 08/15/16 18:22 DC 08/15/16 15:39 125 MLS/HR ECG Indication: weakness Rate (beats per minute): 81 Rhythm: normal sinus Findings: RBBB, no acute ischemic change, no ectopy ED Course 1243: The patient was evaluated in room A04B. A complete history and physical exam was performed. 1248: Sodium Chloride 1000 ml @ 125 mls/hr IV, Zofran Inj 4 mg IV, Sodium Chloride 500 ml @ 999 mls/hr IV 1531: I reevaluated the patient who is refusing rehab. 1541: Reevaluated the patient. Discussed results and discharge instructions: the patient and her daughter verbalized understanding and agreement. The patient is ready for discharge. Medical Decision Medication Reconciliation: I attest that I have personally reviewed the patient' s current medication list. Blood pressure screening: Patient was found to have a slightly elevated blood pressure due to circumstances. I do not believe that the patient requires hypertension monitoring. Differential diagnosis includes but is not limited to dehydration, medication reaction, C Diff Colitis, electrolyte imbalance, anemia, debilitation, persistent UTI. There is no leukocytosis or concerning anemia. No significant electrolyte abnormality, kidney failure or hepatitis. Chest x-ray shows some chronic findings, no CHF or pneumonia. EKG shows a sinus rhythm, no acute ischemia. Cardiac enzyme testing times one is not consistent with acute cardiac injury. Urinalysis does not show infection. Blood cultures are pending. The patient appears to be in a euthyroid state. No acute focal neurologic findings by exam. She is not toxic or febrile. The patient received IV saline, she received IV Zofran. The patient has done well. I had her seen by our case management team. Rehabilitation inpatient was recommended. The patient refused. The patient was adamant that she was going home for outpatient rehabilitation. There is of course concern for C. difficile colitis, the patient has not been able to give us a sample for testing. She will be discharged to bring a sample back for testing when she has her next bowel movement. I will have her stop the Keflex as her urine seems clean. She is going to restart her prophylactic doxycycline antibiotic. She will follow with her doctor this week. If things are worsening, she can return. Impression Primary Impression: Weakness Additional Impression: Diarrhea Scribe Attestation The scribe's documentation has been prepared under my direction and personally reviewed by me in its entirety. I confirm that the note above accurately reflects all work, treatment, procedures, and medical decision making performed by me. Departure Information Dispostion Home / Self-Care Referrals Krishna Villanueva M.D. (PCP) Forms HOME CARE DOCUMENTATION FORM, IMPORTANT VISIT INFORMATION, WORK / SCHOOL INSTRUCTIONS Patient Instructions My [facility] Additional Instructions stop the keflex you can restart the preventative doxycycline rehab as outpt as scheduled return for worsening symptoms or if you have fever bring in stool for testing for c-diff follow with [facility]co malin this week lab testing today was all ok Problem Qualifiers
[2016-08-15 15:01] LABS: URINE APPEARANCE CLEAR (CLEAR); URINE BILIRUBIN NEG (NEG); URINE COLOR YELLOW; URINE NITRITE NEG (NEG); URINE PH 6.5 (4.5-7.5); URINE SPECIFIC GRAVITY 1.015 (1.000-1.030); UROBILINOGEN NEG (NEG); ZZURINE CULT IF INDIC CATH NO
[2016-08-15 15:04] LABS: MANUAL MICROSCOPIC REQUIRED? NO; REVIEW REQ? NO
[2016-08-15 15:50] VITALS: BP 155/62; PULSE 87; O2SAT 95
[2016-09-25] MEDS ORDERED: CEFU500T16 PO (12:56)
[2016-09-25] MEDS ORDERED: PHEN-1042 PO (12:57)
== END 2016-08-15 16:07 | disposition home or self-care (01) ==
LOC: C.EDB 12:24 → C.EDA 16:07
DX: R53.1 Weakness (principal); R19.7 Diarrhea, unspecified; I48.91 Unspecified atrial fibrillation; I25.10 Atherosclerotic heart disease of native coronary artery without angina pectoris; G89.4 Chronic pain syndrome; E11.21 Type 2 diabetes mellitus with diabetic nephropathy; K21.9 Gastro-esophageal reflux disease without esophagitis; I10 Essential (primary) hypertension; G20 Parkinson's disease; Z87.440 Personal history of urinary (tract) infections; Z79.82 Long term (current) use of aspirin; Z79.4 Long term (current) use of insulin; Z83.3 Family history of diabetes mellitus; Z82.49 Family history of ischemic heart disease and other diseases of the circulatory system

== ENCOUNTER 2016-08-24 11:13 | Emergency (ER) | payer OTHER ==
[~2016-08-24] VITALS: Ht 162.6 cm; Wt 91.0 kg
[2016-08-24 11:16] VITALS: TEMP 37.3; Ht 162.6 cm; Wt 91.0 kg
[2016-08-24] MEDS ORDERED: OXYC20TA50 PO (11:50)
[2016-08-24] MEDS ORDERED: PROC1TAB5 PO (11:50)
[2016-08-24] MEDS ORDERED: CLOP1TAB15 PO (11:50)
[2016-08-24] MEDS ORDERED: CARB25TA16 PO (11:50)
[2016-08-24] MEDS ORDERED: DOXY100C76 PO (11:50)
[2016-08-24 11:55] LABS: MANUAL MICROSCOPIC REQUIRED? YES; URINE APPEARANCE CLOUDY (CLEAR); URINE BILIRUBIN NEG (NEG); URINE COLOR YELLOW; URINE NITRITE POS (NEG); URINE SPECIFIC GRAVITY 1.015 (1.000-1.030); UROBILINOGEN NEG (NEG)
[2016-08-24 11:58] LABS: REVIEW REQ? NO
[2016-08-24 12:15] LABS: URINE WBC >30 /hpf (0-5)
[2016-08-24] MEDS ORDERED: CEPHALEXIN MONOHYDRATE 250 MG CAP PO ONE (12:15)
[2016-08-24 12:17] LABS: URINE BACTERIA NEG (NEG)
[2016-08-24 12:18] LABS: ZZURINE CULT IF INDIC CATH YES
[2016-08-24] MEDS ORDERED: CEFTRIAXONE SOD 350MG/ML 1 GM VIAL IM ONE (12:45)
[2016-08-24] MEDS ORDERED: CEFD1CAP14 PO (13:01)
--- NOTE | 2016-08-24 13:01 | EMERGENCY ROOM VISIT NOTE ---
History Report prepared by Liane: Chrissie Ellison Under the Supervision of: Dr. Zohaib Darnell D.O. First contact with patient: 12:04 Chief Complaint: URINARY SYMPTOMS Stated Complaint: UTI History of Present Illness The patient is an 80 year old female who presents to the Emergency Room with complaints of persistent dysuria starting yesterday. The patient has a history of UTI. She reports urinary frequency and lower abdominal pain. The abdominal pain started several days ago. She denies any fever or back pain. Source of History: patient, family Onset: yesterday Position: other (urinary) Quality: other (dysuria) Timing: other (persistent) Associated Symptoms: + abdominal pain, No fevers, No back pain Note: Pt reports urinary frequency. Review of Systems See HPI for pertinent positives & negatives. A total of 10 systems reviewed and were otherwise negative. Past Medical & Surgical Medical Problems: (1) Atrial fibrillation (2) Chronic pain syndrome (3) Coronary artery disease (4) Diabetes mellitus, type 2 (5) Diabetic neuropathy (6) GERD (gastroesophageal reflux disease) (7) Gross hematuria (8) History liver mass (9) Hypertension (10) Parkinson's disease (11) Recurrent urinary tract infection (12) Status post resection liver mass (13) UTI (urinary tract infection) Surgical Problems: (1) Status post cardiac catheterization (2) Status post cholecystectomy (3) Status post coronary artery stent placement Family History Cancer SISTER SISTER Diabetes mellitus MOTHER Lung disease FATHER Myocardial infarction BROTHER BROTHER Tuberculosis Social History Smoking Status: Never Smoker Alcohol Use: none Drug Use: none Marital Status: single Housing Status: assisted living Occupation Status: retired Current/Historical Medications Scheduled Aspirin (Aspirin), 81 MG PO QAM Atorvastatin (Lipitor), 40 MG PO QAM Carbidopa/Levodopa (Sinemet Cr 25MG/100MG), 2 TAB PO QID Carvedilol (Coreg), 6.25 MG PO AMPM Cefdinir (Omnicef), 300 MG PO Q12H Clopidogrel (Plavix), 75 MG PO QAM Docusate Sodium (Colace), 100 MG PO BID Doxycycline Monohydrate (Monodox), 100 MG PO HS Folic Acid (Folvite), 1 MG PO QAM Insulin Human NPH (Humulin N), 24 UNITS SQ AMPM Insulin Lispro (Human) (Humalog), 4 UNITS SC AMPM Isosorbide Dinitrate (Isordil), 20 MG PO BID@0700,1200 Oxycodone Hcl (Oxycontin), 20 MG PO BID Pantoprazole (Protonix), 40 MG PO QAM Pregabalin (Lyrica), 50 MG PO BID Prochlorperazine Maleate (Compazine), 10 MG PO QPM Venlafaxine Hcl (Effexor Xr), 1 CAP PO QAM Scheduled PRN Oxycodone HCl (Oxycodone HCl), 5 MG PO Q6 PRN for Pain Allergies Coded Allergies: Iodinated Diagnostic Agents (Verified Allergy, Intermediate, IV CONTRAST- HIVES, 02/16/16) Azithromycin (Verified Allergy, Mild, dizzy, nauseous (per patient), ) from allergy list supplied by PCP Dar Villanueva in [place] Ciprofloxacin (Verified Allergy, Unknown, unknown, 02/16/16) from allergy list supplied by CIRA Villanueva in [place] Nitrofurantoin (Verified Allergy, Unknown, unknown, 02/16/16) from allergy list supplied by PCP Dar Villanueva in [place] Sulfamethoxazole w/Trimethoprim (Verified Allergy, Unknown, patient unsure , 02/16/16) from allergy list supplied by PCP Dar Villanueva in [place] Acarbose (Verified Adverse Reaction, Mild, GI SYMPTOMS, 02/16/16) from allergy list supplied by CIRA Villanueva in [place] Metformin (Verified Adverse Reaction, Mild, GI SYMPTOMS, 02/16/16) from allergy list supplied by CIRA Villanueva in [place] Penicillins (Verified Adverse Reaction, Mild, dizzy, nausous (per patient ) tolerated zosyn [id number], 02/16/16) from allergy list supplied by CIRA Villanueva in [place] Troglitazone (Verified Adverse Reaction, Mild, GI SYMPTOMS, 02/16/16) from allergy list supplied by PCP Dar Villanueva in [place] Physical Exam Vital Signs Date Time Temp Pulse Resp B/P (MAP) Pulse Ox O2 Delivery O2 Flow Rate FiO2 08/24/16 13:23 83 18 130/71 94 08/24/16 12:32 81 08/24/16 11:16 37.3 82 22 128/75 94 Room Air Physical Exam CONSTITUTIONAL/VITAL SIGNS: Reviewed / noted above. GENERAL: Non-toxic in appearance. INTEGUMENTARY: Warm, dry, and [place]. HEAD: Normocephalic. EYES: without scleral icterus or trauma. ENT/OROPHARYNX: clear and moist. LYMPHADENOPATHY/NECK: Is supple without lymphadenopathy or meningismus. RESPIRATORY: Lungs clear and equal. CARDIOVASCULAR: Regular rate and rhythm. GI/ABDOMEN: Soft with mild tenderness over the suprapubic area. No organomegaly or pulsatile mass. No rebound or guarding. Normal bowel sounds. EXTREMITIES: Warm and well perfused. BACK: No CVA tenderness. NEUROLOGICAL: Intact without focal deficits. PSYCHIATRIC: normal affect. MUSCULOSKELETAL: Normally developed with good muscle tone. Medical Decision & Procedures Laboratory Results Test 08/24/16 11:30 Urine Color YELLOW Urine Appearance CLOUDY (CLEAR) Urine pH 6.0 (4.5-7.5) Urine Specific [place] 1.015 (1.000-1.030) Urine Protein 3+ (NEG) Urine Glucose (UA) NEG (NEG) Urine Ketones NEG (NEG) Urine Occult Blood 3+ (NEG) Urine Nitrite POS (NEG) Urine Bilirubin NEG (NEG) Urine Urobilinogen NEG (NEG) Urine Leukocyte Esterase LARGE (NEG) Urine RBC 10-30 /hpf (0-4) Urine WBC >30 /hpf (0-5) Urine Epithelial Cells 0-5 /lpf (0-5) Urine Bacteria NEG (NEG) Laboratory results as stated above per my review. Medications Administered Medications (Trade) Dose Ordered Sig/Nadege Route Start Time Stop Time Status Last Admin Dose Admin Cephalexin Monohydrate (Keflex Cap) 500 mg NOW ONCE PO 08/24/16 12:15 08/24/16 12:16 DC 08/24/16 12:12 500 MG Ceftriaxone Sodium (Rocephin Im) 1,000 mg NOW ONCE IM 08/24/16 12:45 08/24/16 12:46 DC 08/24/16 12:49 1,000 MG ED Course 1215: Keflex Cap 500 mg PO. 1225: Previous medical records were reviewed. The patient was evaluated in room C7. A complete history and physical examination was performed. 1245: Rocephin Im 1000 mg IM. 1250: On reevaluation, the patient is resting comfortably. I discussed the results and findings with the patient. She verbalized agreement of the treatment plan. She was discharged home. Medical Decision Differential considered: pancreatitis, hepatitis, or acute cholecystitis, AAA, UTI, pyelonephritis, kidney stones, appendicitis, diverticulitis, shingles, bowel obstruction mesenteric ischemia, intussusception,hernia, ovarian torsion, ruptured ovarian cyst,ectopic , . This is an 80-year-old female who presents to the ED with a chief complaint of urinary symptoms. The patient reports urinary burning. She has a history of urinary tract infections. She also reports some discomfort in the suprapubic area. The patient has had multiple problems with antibodies in the past. She was on Keflex most recently developed diarrhea. This has resolved. The patient 's exam was otherwise unremarkable. She is in no distress. She does have some mild tenderness to the suprapubic area. There is no nausea or vomiting. She has not had a fever. Urinalysis suggests UTI. The patient was given IM Rocephin. She was given by mouth Keflex prior to the knowledge about her diarrhea on her previous visit. She will be discharged on Omnicef. She is felt to be stable for discharge. Medication Reconcilliation Current Medication List: was personally reviewed by me Blood Pressure Screening Patient's blood pressure: Normal blood pressure Blood pressure disposition: Did not require urgent referral Impression Primary Impression: Urinary tract infection Scribe Attestation The scribe's documentation has been prepared under my direction and personally reviewed by me in its entirety. I confirm that the note above accurately reflects all work, treatment, procedures, and medical decision making performed by me. Departure Information Dispostion Home / Self-Care Prescriptions Cefdinir (Omnicef) 300 Mg Cap 300 MG PO Q12H for 7 Days, #14 CAP Prov: Zohaib Darnell D.O. 08/24/16 Referrals Krishna Villanueva M.D. (PCP) Patient Instructions My [facility] Additional Instructions Omnicef as prescribed. Follow-up with your doctor for further care and evaluation in 1-2 days. Return to the emergency department for worsening or new symptoms or any concerns. You have been examined and treated today on an emergency basis only. This is not a substitute for, or an effort to provide, complete comprehensive medical care. It is impossible to recognize and treat all injuries or illnesses in a single emergency department visit. It is therefore important that you follow up closely with your doctor. Call as soon as possible for an appointment.
[2016-08-24 13:23] VITALS: BP 130/71; PULSE 83; O2SAT 94
[2016-09-25] MEDS ORDERED: CEFU500T16 PO (12:56)
[2016-09-25] MEDS ORDERED: PHEN-1042 PO (12:57)
== END 2016-08-24 13:20 | disposition home or self-care (01) ==
LOC: C.EDB 11:15 → C.EDC 13:20
DX: N39.0 Urinary tract infection, site not specified (principal); I48.91 Unspecified atrial fibrillation; G89.4 Chronic pain syndrome; I25.10 Atherosclerotic heart disease of native coronary artery without angina pectoris; E11.40 Type 2 diabetes mellitus with diabetic neuropathy, unspecified; K21.9 Gastro-esophageal reflux disease without esophagitis; I10 Essential (primary) hypertension; G20 Parkinson's disease; Z87.440 Personal history of urinary (tract) infections; Z95.5 Presence of coronary angioplasty implant and graft; Z83.3 Family history of diabetes mellitus; Z82.49 Family history of ischemic heart disease and other diseases of the circulatory system; Z79.4 Long term (current) use of insulin; Z79.82 Long term (current) use of aspirin

== ENCOUNTER 2016-09-21 04:51 | Inpatient (IN) | payer OTHER ==
[~2016-09-21] VITALS: Ht 162.6 cm; Wt 90.0 kg
[~2016-09-21 04:51] MED LIST changes: +CARB25TA16 PO; +CLOP1TAB15 PO; -CRFUDL PO; +DOXY100C76 PO; -KFL500 PO; -OXYC-653 PO; +OXYC20TA50 PO; -POLY335019 PO; +PROC1TAB5 PO; -SNM/25100 PO
[2016-09-21] MEDS ORDERED: ONDANSETRON INJ 2 MG/ML 2 ML VIAL IV STA (05:18)
[2016-09-21] MEDS ORDERED: MoRPHine SULFATE 4 MG/ML 1 ML CARP\\VIAL IV STA (05:18)
--- NOTE | 2016-09-21 05:40 | EMERGENCY ROOM VISIT NOTE ---
History Report prepared by Liane: Navarro Blanchard Under the Supervision of: Dr. Ly Groves D.O. First contact with patient: 05:11 Chief Complaint: URINARY SYMPTOMS Stated Complaint: UTI History of Present Illness The patient is an 80 year old female who presents to the Emergency Room with complaints of constant dysuria beginning last evening. The patient states that she has been experiencing discomfort that starts in her abdomen and spreads down to her vagina. The patient notes that she recently started feeling sick to her stomach, but she has not vomited. She reports that she has a history of UTIs , and her symptoms are worse than her previous episodes. The patient notes that she took an oxycodone 6.5 hours ago for pain; but her pain was too much, and she was not able to sleep at all. She states that she has been urinating more frequently. The patient reports that she takes an antibiotic everyday to suppress her chance of acquiring a UTI. She notes that she has not missed a dose. The patient states that she stopped seeing her urologist. She denies nausea, fevers, smoking, and diarrhea. Source of History: patient Onset: last evening Position: other (urethra) Quality: other (dysuria) Timing: constant Associated Symptoms: + abdominal pain, No fevers, No nausea, No vomiting, No diarrhea Note: Associated symptoms: vaginal discomfort and increased urinary frequency Review of Systems See HPI for pertinent positives & negatives. A total of 10 systems reviewed and were otherwise negative. Past Medical & Surgical Medical Problems: (1) Atrial fibrillation (2) Chronic pain syndrome (3) Coronary artery disease (4) Diabetes mellitus, type 2 (5) Diabetic neuropathy (6) GERD (gastroesophageal reflux disease) (7) Gross hematuria (8) History liver mass (9) Hypertension (10) Parkinson's disease (11) Recurrent urinary tract infection (12) Status post resection liver mass (13) UTI (urinary tract infection) (14) UTI (urinary tract infection) Surgical Problems: (1) Status post cardiac catheterization (2) Status post cholecystectomy (3) Status post coronary artery stent placement Family History Cancer SISTER SISTER Diabetes mellitus MOTHER Lung disease FATHER Myocardial infarction BROTHER BROTHER Tuberculosis Social History Smoking Status: Never Smoker Alcohol Use: none Drug Use: none Marital Status: single Housing Status: assisted living Occupation Status: retired Current/Historical Medications Scheduled Aspirin (Aspirin), 81 MG PO QAM Atorvastatin (Lipitor), 40 MG PO QAM Carbidopa/Levodopa (Sinemet Cr 25MG/100MG), 2 TAB PO QID Carvedilol (Coreg), 6.25 MG PO AMPM Clopidogrel (Plavix), 75 MG PO QAM Docusate Sodium (Colace), 100 MG PO BID Doxycycline Monohydrate (Monodox), 100 MG PO HS Folic Acid (Folvite), 1 MG PO QAM Insulin Human NPH (Humulin N), 24 UNITS SQ AMPM Insulin Lispro (Human) (Humalog), 4 UNITS SC AMPM Isosorbide Dinitrate (Isordil), 20 MG PO BID@0700,1200 Oxycodone Hcl (Oxycontin), 20 MG PO BID Pantoprazole (Protonix), 40 MG PO QAM Pregabalin (Lyrica), 50 MG PO BID Prochlorperazine Maleate (Compazine), 10 MG PO QPM Venlafaxine Hcl (Effexor Xr), 1 CAP PO QAM Scheduled PRN Oxycodone HCl (Oxycodone HCl), 5 MG PO Q6 PRN for Pain Allergies Coded Allergies: Iodinated Diagnostic Agents (Verified Allergy, Intermediate, IV CONTRAST- HIVES, 09/21/16) Azithromycin (Verified Allergy, Mild, dizzy, nauseous (per patient), ) from allergy list supplied by PCP Dar Villanueva in [place] Ciprofloxacin (Verified Allergy, Unknown, unknown, 09/21/16) from allergy list supplied by PCP Dar Villanueva in [place] Nitrofurantoin (Verified Allergy, Unknown, unknown, 09/21/16) from allergy list supplied by PCP Dar Villanueva in [place] Sulfamethoxazole w/Trimethoprim (Verified Allergy, Unknown, patient unsure , 09/21/16) from allergy list supplied by PCP Dar Villanueva in [place] Acarbose (Verified Adverse Reaction, Mild, GI SYMPTOMS, 09/21/16) from allergy list supplied by PCP Dar Villanueva in [place] Metformin (Verified Adverse Reaction, Mild, GI SYMPTOMS, 09/21/16) from allergy list supplied by PCP Dar Villanueva in [place] Penicillins (Verified Adverse Reaction, Mild, dizzy, nausous (per patient ) tolerated zosyn [id number], 09/21/16) from allergy list supplied by PCP - Dr. Villanueva in [place] Troglitazone (Verified Adverse Reaction, Mild, GI SYMPTOMS, 09/21/16) from allergy list supplied by PCP - Dr. Villanueva in [place] Physical Exam Vital Signs Date Time Temp Pulse Resp B/P (MAP) Pulse Ox O2 Delivery O2 Flow Rate FiO2 09/21/16 06:33 92 18 176/83 95 Room Air 09/21/16 04:54 36.9 106 18 186/90 92 Room Air Physical Exam General: The patient was evaluated in a wheelchair. HEENT: Head - normocephalic and atraumatic Pupils are equal, round, and reactive to light. Extraocular eye muscles are intact, and sclera are anicteric. Nose - moist nasal mucosa without discharge. Mouth - moist buccal mucosa. Oropharynx is nonerythematous and there is no tonsillar exudate or edema noted. Neck: Supple; no JVD, nuchal rigidity, cervical lymphadenopathy. Heart: Regular rate and rhythm. There is a normal S1 and S2 with no murmurs, clicks, or gallops appreciated. Lungs: Clear to auscultation bilaterally with no wheezes, rales, or rhonchi. Abdomen: Soft, completely nontender, nondistended, with good bowel sounds. There are no palpable pulsatile masses or hepatosplenomegaly. There is no guarding, rigidity, or rebound noted. Extremities: No evidence of cyanosis, clubbing, or edema. There are easily palpable peripheral pulses. Skin: warm and dry with good turgor and no rashes. Medical Decision & Procedures Laboratory Results 09/21/16 05:25 Red Blood Count 4.48, Mean Corpuscular Volume 85.9, Mean Corpuscular Hemoglobin 27.7, Mean Corpuscular Hemoglobin Concent 32.2, Mean Platelet Volume 12.6, Neutrophils (%) (Auto) 81.0, Lymphocytes (%) (Auto) 8.0, Monocytes (%) (Auto) 9.3, Eosinophils (%) (Auto) 1.0, Basophils (%) (Auto) 0.3, Neutrophils # (Auto) 11.33, Lymphocytes # (Auto) 1.12, Monocytes # (Auto) 1.30, Eosinophils # (Auto) 0.14, Basophils # (Auto) 0.04 09/21/16 05:25 Test 09/21/16 05:25 White Blood Count 13.99 K/uL (4.8-10.8) Red Blood Count 4.48 M/uL (4.2-5.4) Hemoglobin 12.4 g/dL (12.0-16.0) Hematocrit 38.5 % (37-47) Mean Corpuscular Volume 85.9 fL (80-100) Mean Corpuscular Hemoglobin 27.7 pg (25-34) Mean Corpuscular Hemoglobin Concent 32.2 g/dl (32-36) Platelet Count 160 K/uL (130-400) Mean Platelet Volume 12.6 fL (7.4-10.4) Neutrophils (%) (Auto) 81.0 % Lymphocytes (%) (Auto) 8.0 % Monocytes (%) (Auto) 9.3 % Eosinophils (%) (Auto) 1.0 % Basophils (%) (Auto) 0.3 % Neutrophils # (Auto) 11.33 K/uL (1.4-6.5) Lymphocytes # (Auto) 1.12 K/uL (1.2-3.4) Monocytes # (Auto) 1.30 K/uL (0.11-0.59) Eosinophils # (Auto) 0.14 K/uL (0-0.5) Basophils # (Auto) 0.04 K/uL (0-0.2) RDW Standard Deviation 45.5 fL (36.4-46.3) RDW Coefficient of Variation 14.6 % (11.5-14.5) Immature Granulocyte % (Auto) 0.4 % Immature Granulocyte # (Auto) 0.06 K/uL (0.00-0.02) Urine Color ORANGE Urine Appearance TURBID (CLEAR) Urine pH 7.0 (4.5-7.5) Urine Specific [place] 1.021 (1.000-1.030) Urine Protein 4+ (NEG) Urine Glucose (UA) NEG (NEG) Urine Ketones NEG (NEG) Urine Occult Blood 3+ (NEG) Urine Nitrite POS (NEG) Urine Bilirubin NEG (NEG) Urine Urobilinogen NEG (NEG) Urine Leukocyte Esterase LARGE (NEG) Urine WBC (Auto) >30 /hpf (0-5) Urine RBC (Auto) >30 /hpf (0-4) Urine Hyaline Casts (Auto) 1-5 /lpf (0-5) Urine Epithelial Cells (Auto) >30 /lpf (0-5) Urine Bacteria (Auto) NEG (NEG) Urine Pathogenic Casts /lpf (0) Anion Gap 5.0 mmol/L (3-11) Est Creatinine Clear Calc Drug Dose 33.7 ml/min Estimated GFR () 40.5 Estimated GFR (Non- 34.9 BUN/Creatinine Ratio 20.9 (10-20) Calcium Level 9.2 mg/dl (8.5-10.1) Total Bilirubin 0.4 mg/dl (0.2-1) Aspartate Amino Transf (AST/SGOT) 25 U/L (15-37) Alanine Aminotransferase (ALT/SGPT) 20 U/L (12-78) Alkaline Phosphatase 138 U/L (45-117) Total Protein 7.7 gm/dl (6.4-8.2) Albumin 3.3 gm/dl (3.4-5.0) Globulin 4.4 gm/dl (2.5-4.0) Albumin/Globulin Ratio 0.7 (0.9-2) Laboratory results per my review. Medications Administered Medications (Trade) Dose Ordered Sig/Nadege Route Start Time Stop Time Status Last Admin Dose Admin Morphine Sulfate (MoRPHine SULFATE INJ) 4 mg NOW STAT IV 09/21/16 05:18 09/21/16 05:20 DC 09/21/16 05:36 4 MG Ondansetron HCl (Zofran Inj) 4 mg NOW STAT IV 09/21/16 05:18 09/21/16 05:20 DC 09/21/16 05:35 4 MG Sodium Chloride 500 ml @ 999 mls/hr Q31M STAT IV 09/21/16 06:13 09/21/16 06:43 DC 09/21/16 06:27 999 MLS/HR Ceftriaxone Sodium (Rocephin Inj) 1 gm NOW STAT IV 09/21/16 06:14 09/21/16 06:16 DC 09/21/16 06:33 1 GM Morphine Sulfate (MoRPHine SULFATE INJ) 2 mg Q4H PRN IV 09/21/16 06:30 10/05/16 06:29 09/21/16 15:24 2 MG Procedure 0518: Ordered Zofran Inj 4mg IV, Morphine Sulfate 4mg IV 0613: Ordered Sodium Chloride 500 ml @ 999 mls/hr IV. 0614: Ordered Rocephin Inj 1gm IV ED Course 0513: The patient was evaluated in room B02. A complete history and physical examination were performed. Nursing notes and previous electronic medical records were reviewed. An IV lock was initiated and labs were drawn as above. A urine specimen was obtained. 0518: Ordered Zofran Inj 4mg IV, Morphine Sulfate 4mg IV 0611: I reevaluated the patient, and she feels much better. She will be receiving a saline bolus, sprite, and IV antibiotics. She says she is too weak and in too much pain to go home. However, she declined anything more for pain. 0613: Ordered Sodium Chloride 500 ml @ 999 mls/hr IV. 0614: I reviewed multiple previous urinary cultures and sensitivities. Ordered Rocephin Inj 1gm IV 0623: Paged [facility] Hospitalist Medical Decision The patient is an 80 year old female who presents to the ED with constant dysuria. Differential diagnosis includes pyelonephritis, cystitis, acute exacerbation of UTI Lab results show: WBC 13.9, stable H&H, BUN 29, Creatinine of 1.4, Glucose of 197. Urinalysis: 3+ blood, positive nitrites, large leukocyte esterase this is an 80-year-old female patient with an extensive history of urinary tract infections secondary to multiple different bacteria's. The patient has multiple allergies to antibiotics. She does have mild leukocytosis but no fever. She has obvious signs of SIRS. I have treated the patient with IV analgesia and have started her on IV antibiotics. The case will be discussed with the [facility] hospitalist for further management. Medication Reconcilliation Current Medication List: was personally reviewed by me Impression Primary Impression: Urinary tract infection Additional Impression: Systemic inflammatory response syndrome (SIRS) Scribe Attestation The scribe's documentation has been prepared under my direction and personally reviewed by me in its entirety. I confirm that the note above accurately reflects all work, treatment, procedures, and medical decision making performed by me. Departure Information Dispostion Being Evaluated By Hospitalist Referrals Krishna Villanueva M.D. (PCP) Patient Instructions My [facility] Problem Qualifiers
[2016-09-21 05:50] LABS: BASO % 0.3 %; BASO ABS # 0.04 K/uL (0-0.2); COMPLETE YES; HEMATOCRIT 38.5 % (37-47); IG% 0.4 %; LYMPH ABS # 1.12 K/uL (1.2-3.4); MEAN CELL VOLUME 85.9 fL (80-100); MEAN CORPUSCULAR HEMOGLOBIN 27.7 pg (25-34); MEAN CORPUSCULAR HGB CONC 32.2 g/dl (32-36); MEAN PLATELET VOLUME 12.6 fL (7.4-10.4); MONO % 9.3 %; PLATELET COUNT 160 K/uL (130-400); RED BLOOD COUNT 4.48 M/uL (4.2-5.4); WHITE BLOOD COUNT 13.99 K/uL (4.8-10.8)
[2016-09-21 05:54] LABS: URINE APPEARANCE TURBID (CLEAR); URINE BILIRUBIN NEG (NEG); URINE COLOR ORANGE; URINE EPITHELIAL CELL AUTO >30 /lpf (0-5); URINE NITRITE POS (NEG); URINE SPECIFIC GRAVITY 1.021 (1.000-1.030); UROBILINOGEN NEG (NEG)
[2016-09-21 06:05] LABS: BUN/CREATININE RATIO 20.9 (10-20); CALCIUM 9.2 mg/dl (8.5-10.1); CREATININE 1.4 mg/dl (0.60-1.20); POTASSIUM 4.3 mmol/L (3.5-5.1)
[2016-09-21 06:08] LABS: ALB/GLOB RATIO 0.7 (0.9-2)
[2016-09-21 06:11] LABS: MANUAL MICROSCOPIC REQUIRED? NO; REVIEW REQ? YES
[2016-09-21] MEDS ORDERED: SODIUM CHLORIDE 0.9% 500ML 500 ML IV STA (06:13)
[2016-09-21] MEDS ORDERED: CEFTRIAXONE SOD INJ 1 GM ADDVIAL IV STA (06:14)
--- NOTE | 2016-09-21 06:41 | History and Physical ---
History & Physical Date & Time of Service: Sep 21, 2016 at 06:33 Chief Complaint: UTI Primary Care Physician: Krishna Villanueva M.D. History of Present Illness Source: patient 80 y/o F Hx CAD, HTN, PAF, DM, Parkinson's, recurrent UTIs. Pt presents with dysuria and suprapubic/abdominal pain which kept her up overnight. She takes Doxycycline daily for chronic suppression. She denies a fever or rigors. Past Medical/Surgical History Medical Problems: (1) Atrial fibrillation Permanent Comment: per old records Status: Chronic (2) Chronic pain syndrome Permanent Comment: arthritis + neuropathy Status: Chronic (3) Coronary artery disease Permanent Comment: s/p PCI ? [place] Status: Chronic (4) Diabetes mellitus, type 2 Status: Chronic (5) Diabetic neuropathy Status: Chronic (6) GERD (gastroesophageal reflux disease) Status: Chronic (7) History liver mass Permanent Comment: ? pathology Status: Chronic (8) Hypertension Status: Chronic (9) Parkinson's disease Status: Chronic (10) Recurrent urinary tract infection Status: Chronic (11) Status post resection liver mass Permanent Comment: ? pathology Status: Chronic (12) UTI (urinary tract infection) Status: Resolved Surgical Problems: (1) Status post cardiac catheterization Status: Chronic (2) Status post cholecystectomy Status: Chronic (3) Status post coronary artery stent placement Status: Chronic Family History Cancer SISTER SISTER Diabetes mellitus MOTHER Lung disease FATHER Myocardial infarction BROTHER BROTHER Tuberculosis Social History Smoking Status: Never Smoker Drug Use: none Marital Status: single Housing status: lives with family Occupational Status: retired Multi-Drug Resistant Organisms History of MDRO: No Allergies Coded Allergies: Iodinated Diagnostic Agents (Verified Allergy, Intermediate, IV CONTRAST- HIVES, 09/21/16) Azithromycin (Verified Allergy, Mild, dizzy, nauseous (per patient), ) from allergy list supplied by PCP Dar Villanueva in [place] Ciprofloxacin (Verified Allergy, Unknown, unknown, 09/21/16) from allergy list supplied by PCP Dar Villanueva in [place] Nitrofurantoin (Verified Allergy, Unknown, unknown, 09/21/16) from allergy list supplied by PCP Dar Villanueva in [place] Sulfamethoxazole w/Trimethoprim (Verified Allergy, Unknown, patient unsure , 09/21/16) from allergy list supplied by PCP Dar Villanueva in [place] Acarbose (Verified Adverse Reaction, Mild, GI SYMPTOMS, 09/21/16) from allergy list supplied by PCP - Dr. Villanueva in [place] Metformin (Verified Adverse Reaction, Mild, GI SYMPTOMS, 09/21/16) from allergy list supplied by PCP - Dr. Villanueva in [place] Penicillins (Verified Adverse Reaction, Mild, dizzy, nausous (per patient ) tolerated zosyn [id number], 09/21/16) from allergy list supplied by PCP - Dr. Villanueva in [place] Troglitazone (Verified Adverse Reaction, Mild, GI SYMPTOMS, 09/21/16) from allergy list supplied by PCP - Dr. Villanueva in [place] Home Medications Scheduled Aspirin (Aspirin), 81 MG PO QAM Atorvastatin (Lipitor), 40 MG PO QAM Carbidopa/Levodopa (Sinemet Cr 25MG/100MG), 2 TAB PO QID Carvedilol (Coreg), 6.25 MG PO AMPM Clopidogrel (Plavix), 75 MG PO QAM Docusate Sodium (Colace), 100 MG PO BID Doxycycline Monohydrate (Monodox), 100 MG PO HS Folic Acid (Folvite), 1 MG PO QAM Insulin Human NPH (Humulin N), 24 UNITS SQ AMPM Insulin Lispro (Human) (Humalog), 4 UNITS SC AMPM Isosorbide Dinitrate (Isordil), 20 MG PO BID@0700,1200 Oxycodone Hcl (Oxycontin), 20 MG PO BID Pantoprazole (Protonix), 40 MG PO QAM Pregabalin (Lyrica), 50 MG PO BID Prochlorperazine Maleate (Compazine), 10 MG PO QPM Venlafaxine Hcl (Effexor Xr), 1 CAP PO QAM Scheduled PRN Oxycodone HCl (Oxycodone HCl), 5 MG PO Q6 PRN for Pain Review of Systems Constitutional: No fever, No chills, No sweats Eyes: No worsening of vision, No eye pain ENT: No hearing loss, No unusual epistaxis, No nasal symptoms Respiratory: No cough, No sputum, No wheezing Cardiovascular: No chest pain, No orthopnea, No PND Abdomen: + pain, + nausea, No vomiting, No diarrhea, No constipation Musculoskeletal: No joint pain, No muscle pain Genitourinary - Female: + dysuria, + urinary frequency, + urinary urgency Neurologic: + weakness, No memory loss, No paralysis Psychiatric: No depression symptoms, No anhedonism Endocrine: No fatigue Hematologic / Lymphatic: No abnormal bleeding/bruising Integumentary: No rash Allergic / Immunologic: No environmental allergies Physical Exam Vital Signs Date Time Temp Pulse Resp B/P (MAP) Pulse Ox O2 Delivery O2 Flow Rate FiO2 09/21/16 04:54 36.9 106 18 186/90 92 Room Air General Appearance: WD/WN, no apparent distress Head: normocephalic Eyes: normal inspection ENT: normal ENT inspection, pharynx normal Neck: supple, no JVD Respiratory/Chest: chest non-tender, no accessory muscle use Cardiovascular: + irregularly irregular Abdomen/GI: normal bowel sounds, non tender, soft Back: normal inspection, no CVA tenderness Extremities/Musculoskelatal: normal inspection, no calf tenderness, normal capillary refill, no pedal edema, normal range of motion 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, no motor/sensory deficits, alert, normal mood/affect, normal reflexes, oriented x 3 Skin: normal color, warm/dry, no rash Diagnostics Laboratory Results Results Past 24 Hours Test 09/21/16 05:25 Range/Units White Blood Count 13.99 4.8-10.8 K/uL Red Blood Count 4.48 4.2-5.4 M/uL Hemoglobin 12.4 12.0-16.0 g/dL Hematocrit 38.5 37-47 % Mean Corpuscular Volume 85.9 80-100 fL Mean Corpuscular Hemoglobin 27.7 25-34 pg Mean Corpuscular Hemoglobin Concent 32.2 32-36 g/dl Platelet Count 160 130-400 K/uL Mean Platelet Volume 12.6 7.4-10.4 fL Neutrophils (%) (Auto) 81.0 % Lymphocytes (%) (Auto) 8.0 % Monocytes (%) (Auto) 9.3 % Eosinophils (%) (Auto) 1.0 % Basophils (%) (Auto) 0.3 % Neutrophils # (Auto) 11.33 1.4-6.5 K/uL Lymphocytes # (Auto) 1.12 1.2-3.4 K/uL Monocytes # (Auto) 1.30 0.11-0.59 K/uL Eosinophils # (Auto) 0.14 0-0.5 K/uL Basophils # (Auto) 0.04 0-0.2 K/uL RDW Standard Deviation 45.5 36.4-46.3 fL RDW Coefficient of Variation 14.6 11.5-14.5 % Immature Granulocyte % (Auto) 0.4 % Immature Granulocyte # (Auto) 0.06 0.00-0.02 K/uL Urine Color ORANGE Urine Appearance TURBID CLEAR Urine pH 7.0 4.5-7.5 Urine Specific [place] 1.021 1.000-1.030 Urine Protein 4+ NEG Urine Glucose (UA) NEG NEG Urine Ketones NEG NEG Urine Occult Blood 3+ NEG Urine Nitrite POS NEG Urine Bilirubin NEG NEG Urine Urobilinogen NEG NEG Urine Leukocyte Esterase LARGE NEG Urine WBC (Auto) >30 0-5 /hpf Urine RBC (Auto) >30 0-4 /hpf Urine Hyaline Casts (Auto) 1-5 0-5 /lpf Urine Epithelial Cells (Auto) >30 0-5 /lpf Urine Bacteria (Auto) NEG NEG Urine Pathogenic Casts 0 /lpf Sodium Level 137 136-145 mmol/L Potassium Level 4.3 3.5-5.1 mmol/L Chloride Level 103 98-107 mmol/L Carbon Dioxide Level 29 21-32 mmol/L Anion Gap 5.0 3-11 mmol/L Blood Urea Nitrogen 29 7-18 mg/dl Creatinine 1.40 0.60-1.20 mg/dl Est Creatinine Clear Calc Drug Dose 33.7 ml/min Estimated GFR () 40.5 Estimated GFR (Non- 34.9 BUN/Creatinine Ratio 20.9 10-20 Random Glucose 197 70-99 mg/dl Calcium Level 9.2 8.5-10.1 mg/dl Total Bilirubin 0.4 0.2-1 mg/dl Aspartate Amino Transf (AST/SGOT) 25 15-37 U/L Alanine Aminotransferase (ALT/SGPT) 20 12-78 U/L Alkaline Phosphatase 138 45-117 U/L Total Protein 7.7 6.4-8.2 gm/dl Albumin 3.3 3.4-5.0 gm/dl Globulin 4.4 2.5-4.0 gm/dl Albumin/Globulin Ratio 0.7 0.9-2 Microbiology Results 09/21/16 Urine Culture, Received Pending Impression Assessment and Plan 80 y/o F Hx CAD, HTN, PAF, DM, Parkinson's, recurrent UTIs. Pt presents with dysuria and suprapubic/abdominal pain which kept her up overnight. She takes Doxycycline daily for chronic suppression. She denies a fever or rigors. 1) UTI - pt is requesting to stay in the hospital overnight due to her pain. She met SIRS criteria on arrival to the ER. We have held Doxy and provided her with Ceftriaxone pending culture results. Most recent culture on record revealed a pansensitive Klebs. 2) DM - placed on SS 3) PAF - not a candidate for anticoagulation due to fall risk - monitor shows a sinus tach on arrival - cont B marvin 4) CAD - no evidence of ACS - cont ASA, Bblocker, Statin, Imdur 5) Parkinson's - cont Sinemet Full code - Heparin prophylaxis Total time for this admit including review of labs, meds, records - discussion with pt and ER attending 38 min Level of Care Med/Surg Resuscitation Status FULL RESUSCITATION VTE Prophylaxis Given or contraindicated: Unfractionated heparin SQ
[2016-09-21] MEDS ORDERED: POLYETHYLENE (MIRALAX) 17 GM PACK PO PRN (06:45)
[2016-09-21] MEDS ORDERED: MAGNESIUM HYDROXIDE SUSP 30 ML UDC PO PRN (06:45)
[2016-09-21] MEDS ORDERED: ONDANSETRON INJ 2 MG/ML 2 ML VIAL IV PRN (06:45)
[2016-09-21] MEDS ORDERED: ALUMINUM/MAGNESIUM/SIMETH (MAALOX MAX) 30 ML UDC PO PRN (06:45)
[2016-09-21] MEDS: INSULIN ASPART 100 UNITS/ML 3 ML PEN SC SCH ×5 (07:00→20:58)
[2016-09-21] MEDS ORDERED: DEXTROSE 50% 50 ML SYR IV PRN (07:15)
[2016-09-21] MEDS ORDERED: GLUCAGON FOR INJ 1 MG VIAL SQ PRN (07:15)
[2016-09-21] MEDS ORDERED: GLUCOSE 40% GEL 15 GM TUBE PO PRN (07:15)
[2016-09-21] MEDS ORDERED: GLUCOSE 10 TABS/TUBE PO PRN (07:15)
[2016-09-21 09:29] VITALS: BP 155/78; PULSE 92; TEMP 36.6; O2SAT 94
[2016-09-21 09:30] VITALS: BP 155/78; PULSE 92; TEMP 36.6; O2SAT 94; Ht 162.6 cm; Wt 90.0 kg
[2016-09-21] MEDS: CARBIDOPA/LEVODOPA 25/100MG EXT REL TAB PO SCH ×4 (10:10→20:52)
[2016-09-21] MEDS: CLOPIDOGREL BISULFATE 75 MG TAB PO SCH (10:11)
[2016-09-21] MEDS: ATORVASTATIN 20 MG TAB PO SCH (10:11)
[2016-09-21] MEDS: CARVEDILOL 6.25 MG TAB PO SCH ×2 (10:11→21:00)
[2016-09-21] MEDS: PANTOprazole SOD 40 MG TAB PO SCH (10:11)
[2016-09-21] MEDS: ISOSORBIDE DINITRATE 20 MG TAB PO SCH ×2 (10:11→12:25)
[2016-09-21] MEDS: VENLAFAXINE HCL XR 37.5 MG CAPXR PO SCH (10:11)
[2016-09-21] MEDS: OXYCODONE HCL 20 MG TABCR (OXYCONTIN) PO SCH ×2 (10:11→20:51)
[2016-09-21] MEDS: PREGABALIN 50 MG CAP PO SCH ×2 (10:11→20:51)
[2016-09-21] MEDS: DOCUSATE SODIUM 100 MG CAP PO SCH ×2 (10:11→21:33)
[2016-09-21 10:31] LABS: PROTHROMBIN TIME (PATIENT) 10.5 SECONDS (9.0-12.0)
[2016-09-21] MEDS: HEPARIN SOD 5000 UNIT/0.5 ML CARP SQ SCH ×2 (13:16→20:58)
[2016-09-21] MEDS ORDERED: NURSING DECISION MEDICATION ORDER SCH (13:45)
[2016-09-21 15:03] VITALS: BP 94/54; PULSE 89; TEMP 37.1; O2SAT 92
[2016-09-21] MEDS: MoRPHine SULFATE 2 MG/ML CARP IV PRN (15:24)
[2016-09-21 15:31] VITALS: BP 125/72
--- NOTE | 2016-09-21 17:27 | Progress Note ---
Progress Note Date of Service Sep 21, 2016. Progress Note Pt states she is feeling improved s/p IVF and abx. Her biggest concern is her LE and neck pain, which are not new to her but are being helped with morphine. Feels her abd pain is better. No longer burning with urination. Tolerating PO without issue. Exam: Gen: NAD, WDWN Neck: Supple Eyes: WNL Hrt: RRR , neg edema Lungs: CTA b/l, neg resp distress Abd: + BS, soft, nonTTP LE: neg for edema, nonTTP Neuro: Alert, pleasant, resting comfortably Skin: neg for rash, warm/dry Plan: Agree with plan as outlined by admitting physician
[2016-09-21] MEDS: MICONAZOLE NITRATE POWDER 43 GM EXT PRN (17:58)
[2016-09-21] MEDS: PROCHLORPERAZINE MALEATE 10 MG TAB PO SCH (20:52)
[2016-09-21 21:04] VITALS: BP 82/52; PULSE 80
[2016-09-21] MEDS ORDERED: SODIUM CHLORIDE 0.9% 1000ML 1,000 ML IV ONE (21:30)
[2016-09-21 23:09] VITALS: BP 115/68; PULSE 83; TEMP 36.7; O2SAT 96
[2016-09-22] MEDS: CEFTRIAXONE SOD INJ 1 GM in DEXTROSE 5% ADD-VANTAGE 50ML 50 ML IV SCH (05:45)
[2016-09-22] MEDS: HEPARIN SOD 5000 UNIT/0.5 ML CARP SQ SCH ×3 (05:50→21:51)
[2016-09-22] MEDS: ISOSORBIDE DINITRATE 20 MG TAB PO SCH ×2 (07:01→12:12)
[2016-09-22] MEDS: ACETAMINOPHEN 325 MG TAB PO PRN ×2 (07:06→23:45)
[2016-09-22 07:16] VITALS: BP 94/63; PULSE 82; TEMP 36.6; O2SAT 96
[2016-09-22] MEDS ORDERED: NURSING VERBAL MED ORDER ONE (07:30)
[2016-09-22] MEDS ORDERED: SODIUM CHLORIDE 0.9% 1000ML 1,000 ML IV SCH (07:30)
[2016-09-22 07:51] LABS: BASO % 0.2 %; BASO ABS # 0.01 K/uL (0-0.2); COMPLETE YES; EOS % 2.2 %; HEMATOCRIT 28.9 % (37-47); IG% 0.2 %; LYMPH % 28.3 %; LYMPH ABS # 1.57 K/uL (1.2-3.4); MEAN CELL VOLUME 86.5 fL (80-100); MEAN CORPUSCULAR HEMOGLOBIN 26.9 pg (25-34); MEAN CORPUSCULAR HGB CONC 31.1 g/dl (32-36); MEAN PLATELET VOLUME 11.6 fL (7.4-10.4); MONO % 10.3 %; NEUT % 58.8 %; PLATELET COUNT 119 K/uL (130-400); RED BLOOD COUNT 3.34 M/uL (4.2-5.4); WHITE BLOOD COUNT 5.55 K/uL (4.8-10.8)
[2016-09-22 08:06] LABS: CALCIUM 8.1 mg/dl (8.5-10.1); CREATININE 1.3 mg/dl (0.60-1.20); POTASSIUM 4.1 mmol/L (3.5-5.1)
--- NOTE | 2016-09-22 08:12 | Clinical Documentation Query ---
CLINICAL DOCUMENTATION QUERY Dr. ELIZABETH, In ICD 10, SIRS with a UTI will not be coded to sepsis. In your clinical opinion is this patient being managed for: ( X ) Sepsis due to UTI, POA ( ) Other explanation of clinical findings (Please Explain) ( ) Unable to determine (Please Define) ( ) Need to Discuss ( ) Not Agree The medical record reflects the following clinical findings, treatment, and risk factors. Clinical Indicators: 80 yo female presenting with dysuria/UTI. Pt noted to have a history of UTI's on chronic antibiotic therapy. WBC 13.99, neut 11.33, HR 106, BP initially 186/90 now has dropped as low as 82/52. H/P indicates pt has SIRS. Treatment: IV fluid boluses, IV rocephin, urine cx pending Risk Factors: age, DM, chronic antibiotic therapy, recurrent UTI's Please clarify and document your clinical opinion in the progress notes and discharge summary. Terms such as "probable", "suspected", "likely", "questionable", "possible", or "still to be ruled out" are acceptable. IF IN AGREEMENT, YOU MUST DOCUMENT ABOVE DIAGNOSTIC STATEMENT IN DAILY PROGRESS NOTES AND DISCHARGE SUMMARY. This document is not part of the patient's record. Thank You, Enma Herrera, MICHAEL [phone]
[2016-09-22] MEDS: CARVEDILOL 6.25 MG TAB PO SCH ×2 (08:21→21:27)
[2016-09-22] MEDS: DOCUSATE SODIUM 100 MG CAP PO SCH ×2 (08:21→21:27)
[2016-09-22] MEDS: CARBIDOPA/LEVODOPA 25/100MG EXT REL TAB PO SCH ×4 (08:22→21:28)
[2016-09-22] MEDS: PREGABALIN 50 MG CAP PO SCH ×2 (08:22→21:28)
[2016-09-22] MEDS: PANTOprazole SOD 40 MG TAB PO SCH (08:22)
[2016-09-22] MEDS: VENLAFAXINE HCL XR 37.5 MG CAPXR PO SCH (08:22)
[2016-09-22] MEDS: INSULIN ASPART 100 UNITS/ML 3 ML PEN SC SCH ×4 (08:24→21:52)
[2016-09-22 09:09] VITALS: BP 106/64; PULSE 85
[2016-09-22] MEDS: ATORVASTATIN 20 MG TAB PO SCH (09:12)
[2016-09-22] MEDS: ASPIRIN 81 MG ECTAB PO SCH (09:12)
[2016-09-22] MEDS: OXYCODONE HCL 20 MG TABCR (OXYCONTIN) PO SCH ×2 (09:12→21:28)
[2016-09-22] MEDS: CLOPIDOGREL BISULFATE 75 MG TAB PO SCH (09:12)
[2016-09-22 12:17] VITALS: BP 105/66; PULSE 83
[2016-09-22 15:14] VITALS: BP 114/67; PULSE 71; TEMP 36.7; O2SAT 95
--- NOTE | 2016-09-22 15:40 | Progress Note ---
Subjective Date of Service: Sep 22, 2016. Problem List Medical Problems: (1) Constipation Status: Acute (2) Dehydration Status: Acute (3) Diarrhea Status: Acute (4) Failure of outpatient treatment Status: Acute (5) Hyperglycemia Status: Acute (6) Left sided abdominal pain Status: Acute (7) Leukocytosis Status: Acute (8) Nausea Status: Acute (9) Substernal chest pain Status: Acute (10) Systemic inflammatory response syndrome (SIRS) Status: Acute (11) Urinary retention Status: Acute (12) Urinary tract infection Status: Acute (13) Urinary tract infection Status: Acute (14) UTI (urinary tract infection) Status: Acute (15) Vomiting Status: Acute (16) Weakness Status: Acute (17) Weakness Status: Acute Objective Vital Signs Date Time Temp Pulse Resp B/P (MAP) Pulse Ox O2 Delivery O2 Flow Rate FiO2 09/22/16 15:14 36.7 71 18 114/67 (83) 95 09/22/16 12:17 83 105/66 (79) 09/22/16 09:09 85 106/64 (78) 09/22/16 08:00 Room Air 09/22/16 07:16 36.6 82 18 94/63 (73) 96 09/22/16 00:00 Room Air 09/21/16 23:09 36.7 83 18 115/68 (84) 96 Room Air 09/21/16 21:04 80 82/52 (62) 09/21/16 16:00 Room Air Laboratory Results Last 24 Hours Test 09/21/16 16:15 09/21/16 20:20 09/22/16 07:22 09/22/16 07:31 Bedside Glucose 237 mg/dl 235 mg/dl 181 mg/dl White Blood Count 5.55 K/uL Red Blood Count 3.34 M/uL Hemoglobin 9.0 g/dL Hematocrit 28.9 % Mean Corpuscular Volume 86.5 fL Mean Corpuscular Hemoglobin 26.9 pg Mean Corpuscular Hemoglobin Concent 31.1 g/dl Platelet Count 119 K/uL Mean Platelet Volume 11.6 fL Neutrophils (%) (Auto) 58.8 % Lymphocytes (%) (Auto) 28.3 % Monocytes (%) (Auto) 10.3 % Eosinophils (%) (Auto) 2.2 % Basophils (%) (Auto) 0.2 % Neutrophils # (Auto) 3.27 K/uL Lymphocytes # (Auto) 1.57 K/uL Monocytes # (Auto) 0.57 K/uL Eosinophils # (Auto) 0.12 K/uL Basophils # (Auto) 0.01 K/uL RDW Standard Deviation 47.1 fL RDW Coefficient of Variation 14.9 % Immature Granulocyte % (Auto) 0.2 % Immature Granulocyte # (Auto) 0.01 K/uL Sodium Level 137 mmol/L Potassium Level 4.1 mmol/L Chloride Level 104 mmol/L Carbon Dioxide Level 29 mmol/L Anion Gap 4.0 mmol/L Blood Urea Nitrogen 30 mg/dl Creatinine 1.30 mg/dl Est Creatinine Clear Calc Drug Dose 36.3 ml/min Estimated GFR () 44.2 Estimated GFR (Non- 38.2 BUN/Creatinine Ratio 23.0 Random Glucose 184 mg/dl Calcium Level 8.1 mg/dl Test 09/22/16 11:16 Bedside Glucose 236 mg/dl Assessment and Plan 80 y/o F Hx CAD, HTN, PAF, DM, Parkinson's, recurrent UTIs. Pt presents with dysuria and suprapubic/abdominal pain which kept her up overnight. She takes Doxycycline daily for chronic suppression. She denies a fever or rigors. 1) UTI with sepsis POA - Pain still uncontrolled. She met SIRS criteria on arrival to the ER. We have held Doxy and provided her with Ceftriaxone pending culture results. Most recent culture on record revealed a pansensitive Klebs. Urine c&s gram neg bacilli at this time Leukocytosis resolved 2) DM - placed on SS 3) PAF - not a candidate for anticoagulation due to fall risk - monitor shows a sinus tach on arrival - cont B marvin 4) CAD - no evidence of ACS - cont ASA, Bblocker, Statin, Imdur 5) Parkinson's - cont Sinemet
[2016-09-22 16:00] VITALS: O2SAT 95
[2016-09-22] MEDS: PHENAZOPYRIDINE HCL 100 MG TAB PO PRN (16:55)
[2016-09-22 20:15] VITALS: BP 109/56; PULSE 71; TEMP 36.5; O2SAT 97
[2016-09-22] MEDS: PROCHLORPERAZINE MALEATE 10 MG TAB PO SCH (21:28)
[2016-09-23 00:03] VITALS: BP 117/52; PULSE 73; TEMP 36.8; O2SAT 94
[2016-09-23] MEDS: CEFTRIAXONE SOD INJ 1 GM in DEXTROSE 5% ADD-VANTAGE 50ML 50 ML IV SCH (06:08)
[2016-09-23] MEDS: HEPARIN SOD 5000 UNIT/0.5 ML CARP SQ SCH ×3 (06:10→20:32)
[2016-09-23 07:36] VITALS: BP 135/78; PULSE 72; TEMP 36.6; O2SAT 95
[2016-09-23 09:00] VITALS: O2SAT 95
[2016-09-23] MEDS: INSULIN ASPART 100 UNITS/ML 3 ML PEN SC SCH ×4 (09:14→20:31)
[2016-09-23] MEDS: ISOSORBIDE DINITRATE 20 MG TAB PO SCH ×2 (09:16→13:31)
[2016-09-23] MEDS: DOCUSATE SODIUM 100 MG CAP PO SCH ×2 (09:17→20:35)
[2016-09-23] MEDS: ASPIRIN 81 MG ECTAB PO SCH (09:17)
[2016-09-23] MEDS: CARVEDILOL 6.25 MG TAB PO SCH ×2 (09:17→20:37)
[2016-09-23] MEDS: VENLAFAXINE HCL XR 37.5 MG CAPXR PO SCH (09:18)
[2016-09-23] MEDS: ATORVASTATIN 20 MG TAB PO SCH (09:19)
[2016-09-23] MEDS: CLOPIDOGREL BISULFATE 75 MG TAB PO SCH (09:20)
[2016-09-23] MEDS: PREGABALIN 50 MG CAP PO SCH ×2 (09:20→20:34)
[2016-09-23] MEDS: OXYCODONE HCL 20 MG TABCR (OXYCONTIN) PO SCH ×2 (09:20→20:34)
[2016-09-23] MEDS: CARBIDOPA/LEVODOPA 25/100MG EXT REL TAB PO SCH ×4 (09:21→20:35)
[2016-09-23] MEDS: PANTOprazole SOD 40 MG TAB PO SCH (09:21)
[2016-09-23] MEDS: PHENAZOPYRIDINE HCL 100 MG TAB PO PRN (09:22)
[2016-09-23 09:31] VITALS: BP 102/68; PULSE 64
--- NOTE | 2016-09-23 11:56 | Progress Note ---
Subjective Date of Service: Sep 23, 2016. Subjective Pt evaluation today including: conversation w/ patient, physical exam, chart review, lab review, review of studies, review of inpatient medication list Resting comfortably in bed States dysuria improved No fevers or chills No acute events overnight Problem List Medical Problems: (1) Constipation Status: Acute (2) Dehydration Status: Acute (3) Diarrhea Status: Acute (4) Failure of outpatient treatment Status: Acute (5) Hyperglycemia Status: Acute (6) Left sided abdominal pain Status: Acute (7) Leukocytosis Status: Acute (8) Nausea Status: Acute (9) Substernal chest pain Status: Acute (10) Systemic inflammatory response syndrome (SIRS) Status: Acute (11) Urinary retention Status: Acute (12) Urinary tract infection Status: Acute (13) Urinary tract infection Status: Acute (14) UTI (urinary tract infection) Status: Acute (15) Vomiting Status: Acute (16) Weakness Status: Acute (17) Weakness Status: Acute Review of Systems Constitutional: No fever, No chills, No sweats, No weakness ENT: No hearing loss, No unusual epistaxis, No nasal symptoms, No sore throat Respiratory: No cough, No sputum, No wheezing, No shortness of breath Cardiac: No chest pain, No orthopnea, No PND, No edema Abdomen: No nausea, No vomiting, No diarrhea, No constipation Musculoskeletal: No joint pain, No muscle pain, No swelling, No calf pain Female : + dysuria, + urinary frequency, No hematuria, No incontinence Neurologic: No memory loss, No paralysis, No weakness, No numbness/tingling Psychiatric: No depression symptoms, No anhedonism, No anxiety, No insomnia Endo: No fatigue, No excessive thirst Skin: No rash, No itch Objective Vital Signs Date Time Temp Pulse Resp B/P (MAP) Pulse Ox O2 Delivery O2 Flow Rate FiO2 09/23/16 09:31 64 102/68 (79) 09/23/16 09:00 95 Room Air 09/23/16 07:36 36.6 72 20 135/78 (97) 95 09/23/16 00:03 36.8 73 18 117/52 (73) 94 Room Air 09/23/16 00:00 Room Air 09/22/16 20:15 36.5 71 18 109/56 (73) 97 09/22/16 16:00 95 Room Air 09/22/16 15:14 36.7 71 18 114/67 (83) 95 09/22/16 12:17 83 105/66 (79) Physical Exam General Appearance: WD/WN, no apparent distress Eyes: normal inspection, PERRL, EOMI, sclerae normal Neck: supple, no adenopathy, thyroid normal, no JVD Respiratory/Chest: chest non-tender, lungs clear, normal breath sounds, no respiratory distress Cardiovascular: no edema, no gallop, no JVD, no murmur Abdomen: normal bowel sounds, non tender, soft, no organomegaly Neurologic/Psychiatric: no motor/sensory deficits, alert, normal mood/affect, oriented x 3 Skin: normal color, warm/dry, no rash Lymphatic: no adenopathy Laboratory Results Last 24 Hours Test 09/22/16 16:37 09/22/16 20:36 09/23/16 07:28 09/23/16 11:19 Bedside Glucose 189 mg/dl 210 mg/dl 201 mg/dl 247 mg/dl Assessment and Plan 80 y/o F Hx CAD, HTN, PAF, DM, Parkinson's, recurrent UTIs. Pt presents with dysuria and suprapubic/abdominal pain which kept her up overnight. She takes Doxycycline daily for chronic suppression. She denies a fever or rigors. 1) UTI with sepsis POA - Pain improving with addition of pyridium 100 mg PO TID PRN. She met SIRS criteria on arrival to the ER. We have held Doxy and provided her with Ceftriaxone pending culture results. Most recent culture on record revealed a pansensitive Klebs. Urine c&s - cooley sens klebsiella once again. Leukocytosis resolved. Likely DC in next 24 hrs 2) DM - placed on SS 3) PAF - not a candidate for anticoagulation due to fall risk - monitor shows a sinus tach on arrival - cont B marvin 4) CAD - no evidence of ACS - cont ASA, Bblocker, Statin, Imdur 5) Parkinson's - cont Sinemet
[2016-09-23 14:52] VITALS: BP 94/57; PULSE 67; TEMP 36.6; O2SAT 91
[2016-09-23] MEDS: PROCHLORPERAZINE MALEATE 10 MG TAB PO SCH (20:40)
[2016-09-23 20:44] VITALS: BP 117/76; PULSE 69
[2016-09-24] VITALS: BP 110/68; PULSE 64; TEMP 36.6; O2SAT 95; O2SAT 97
[2016-09-24 00:19] VITALS: BP 118/72; PULSE 69; TEMP 36.5; O2SAT 97
[2016-09-24] MEDS: CEFTRIAXONE SOD INJ 1 GM in DEXTROSE 5% ADD-VANTAGE 50ML 50 ML IV SCH (05:45)
[2016-09-24] MEDS: HEPARIN SOD 5000 UNIT/0.5 ML CARP SQ SCH ×3 (05:59→20:41)
[2016-09-24 06:26] LABS: HEMATOCRIT 30.4 % (37-47); MEAN CELL VOLUME 87.1 fL (80-100); MEAN CORPUSCULAR HEMOGLOBIN 25.8 pg (25-34); MEAN CORPUSCULAR HGB CONC 29.6 g/dl (32-36); MEAN PLATELET VOLUME 10.9 fL (7.4-10.4); PLATELET COUNT 106 K/uL (130-400); RED BLOOD COUNT 3.49 M/uL (4.2-5.4); WHITE BLOOD COUNT 3.39 K/uL (4.8-10.8)
[2016-09-24 06:59] LABS: BUN/CREATININE RATIO 19.8 (10-20); CALCIUM 8.8 mg/dl (8.5-10.1); CREATININE 1.2 mg/dl (0.60-1.20)
[2016-09-24 07:38] VITALS: BP 138/79; PULSE 70; TEMP 36.5; O2SAT 97
[2016-09-24] MEDS: INSULIN ASPART 100 UNITS/ML 3 ML PEN SC SCH ×4 (08:04→20:41)
[2016-09-24] MEDS: DOCUSATE SODIUM 100 MG CAP PO SCH ×2 (08:07→20:38)
[2016-09-24] MEDS: ISOSORBIDE DINITRATE 20 MG TAB PO SCH ×2 (08:07→12:33)
[2016-09-24] MEDS: CARVEDILOL 6.25 MG TAB PO SCH ×2 (08:07→20:38)
[2016-09-24] MEDS: ASPIRIN 81 MG ECTAB PO SCH (08:08)
[2016-09-24] MEDS: VENLAFAXINE HCL XR 37.5 MG CAPXR PO SCH (08:08)
[2016-09-24] MEDS: PREGABALIN 50 MG CAP PO SCH ×2 (08:09→20:36)
[2016-09-24] MEDS: CLOPIDOGREL BISULFATE 75 MG TAB PO SCH (08:09)
[2016-09-24] MEDS: OXYCODONE HCL 20 MG TABCR (OXYCONTIN) PO SCH ×2 (08:09→20:36)
[2016-09-24] MEDS: ATORVASTATIN 20 MG TAB PO SCH (08:09)
[2016-09-24] MEDS: CARBIDOPA/LEVODOPA 25/100MG EXT REL TAB PO SCH ×4 (08:10→20:37)
[2016-09-24] MEDS: PANTOprazole SOD 40 MG TAB PO SCH (08:10)
[2016-09-24 12:33] VITALS: BP 98/52; PULSE 65
--- NOTE | 2016-09-24 14:10 | Progress Note ---
Subjective Date of Service: Sep 24, 2016. Subjective Pt evaluation today including: conversation w/ patient, physical exam, chart review, lab review, review of studies, review of inpatient medication list Pt resting in bed No concerns or complaints at this time Problem List Medical Problems: (1) Constipation Status: Acute (2) Dehydration Status: Acute (3) Diarrhea Status: Acute (4) Failure of outpatient treatment Status: Acute (5) Hyperglycemia Status: Acute (6) Left sided abdominal pain Status: Acute (7) Leukocytosis Status: Acute (8) Nausea Status: Acute (9) Substernal chest pain Status: Acute (10) Systemic inflammatory response syndrome (SIRS) Status: Acute (11) Urinary retention Status: Acute (12) Urinary tract infection Status: Acute (13) Urinary tract infection Status: Acute (14) UTI (urinary tract infection) Status: Acute (15) Vomiting Status: Acute (16) Weakness Status: Acute (17) Weakness Status: Acute Review of Systems Constitutional: No fever, No chills, No sweats, No weight loss, No weakness Respiratory: No cough, No sputum, No wheezing, No shortness of breath, No dyspnea on exertion Cardiac: No chest pain, No orthopnea, No PND, No edema, No claudication Abdomen: No pain, No nausea, No vomiting, No diarrhea, No constipation Musculoskeletal: No joint pain, No muscle pain, No swelling, No calf pain Female : No dysuria, No urinary frequency, No hematuria, No incontinence Neurologic: No memory loss, No paralysis, No weakness, No numbness/tingling Psychiatric: No depression symptoms, No anhedonism, No anxiety, No insomnia Endo: No fatigue, No excessive thirst Skin: No rash, No itch Objective Vital Signs Date Time Temp Pulse Resp B/P (MAP) Pulse Ox O2 Delivery O2 Flow Rate FiO2 09/24/16 12:33 65 98/52 (67) 09/24/16 08:00 Room Air 09/24/16 07:38 36.5 70 20 138/79 (98) 97 09/24/16 00:19 36.5 69 18 118/72 (87) 97 Room Air 09/24/16 00:00 95 Room Air 09/24/16 00:00 36.6 64 20 110/68 (82) 97 Room Air 09/23/16 20:44 69 117/76 (90) 09/23/16 16:48 Room Air 09/23/16 14:52 36.6 67 20 94/57 (29) 91 Physical Exam General Appearance: WD/WN, no apparent distress Neck: supple, no adenopathy, thyroid normal Respiratory/Chest: chest non-tender, lungs clear, normal breath sounds, no respiratory distress Cardiovascular: no edema, no gallop, no JVD Abdomen: normal bowel sounds, non tender, soft Neurologic/Psychiatric: no motor/sensory deficits, alert, normal mood/affect Laboratory Results Last 24 Hours Test 09/23/16 16:28 09/23/16 20:28 09/24/16 06:07 09/24/16 07:28 Bedside Glucose 171 mg/dl 222 mg/dl 188 mg/dl White Blood Count 3.39 K/uL Red Blood Count 3.49 M/uL Hemoglobin 9.0 g/dL Hematocrit 30.4 % Mean Corpuscular Volume 87.1 fL Mean Corpuscular Hemoglobin 25.8 pg Mean Corpuscular Hemoglobin Concent 29.6 g/dl RDW Standard Deviation 46.0 fL RDW Coefficient of Variation 14.5 % Platelet Count 106 K/uL Mean Platelet Volume 10.9 fL Sodium Level 140 mmol/L Potassium Level 4.0 mmol/L Chloride Level 105 mmol/L Carbon Dioxide Level 30 mmol/L Anion Gap 5.0 mmol/L Blood Urea Nitrogen 24 mg/dl Creatinine 1.20 mg/dl Est Creatinine Clear Calc Drug Dose 39.3 ml/min Estimated GFR () 48.7 Estimated GFR (Non- 42.1 BUN/Creatinine Ratio 19.8 Random Glucose 202 mg/dl Calcium Level 8.8 mg/dl Test 09/24/16 11:11 Bedside Glucose 225 mg/dl Assessment and Plan 80 y/o F Hx CAD, HTN, PAF, DM, Parkinson's, recurrent UTIs. Pt presents with dysuria and suprapubic/abdominal pain which kept her up overnight. She takes Doxycycline daily for chronic suppression. She denies a fever or rigors. 1) UTI with sepsis POA - Pain improving with addition of pyridium 100 mg PO TID PRN. She met SIRS criteria on arrival to the ER. We have held Doxy and provided her with Ceftriaxone pending culture results. Most recent culture on record revealed a pansensitive Klebs. Urine c&s - cooley sens klebsiella once again. Leukocytosis resolved. Likely DC in next 24 hrs 2) DM - placed on SS 3) PAF - not a candidate for anticoagulation due to fall risk - monitor shows a sinus tach on arrival - cont B marvin 4) CAD - no evidence of ACS - cont ASA, Bblocker, Statin, Imdur 5) Parkinson's - cont Sinemet
[2016-09-24] MEDS ORDERED: NURSING VERBAL MED ORDER ONE (14:30)
[2016-09-24 15:09] VITALS: BP 104/67; PULSE 62; TEMP 36.6; O2SAT 97
[2016-09-24] MEDS: PHENAZOPYRIDINE HCL 100 MG TAB PO SCH ×2 (15:26→20:39)
[2016-09-24] MEDS: PROCHLORPERAZINE MALEATE 10 MG TAB PO SCH (20:37)
[2016-09-24 20:44] VITALS: BP 144/80; PULSE 75
[2016-09-25] VITALS: BP 121/72; PULSE 69; TEMP 36.6; O2SAT 93
[2016-09-25 00:13] VITALS: O2SAT 95
[2016-09-25] MEDS: MoRPHine SULFATE 2 MG/ML CARP IV PRN (03:11)
[2016-09-25] MEDS: HEPARIN SOD 5000 UNIT/0.5 ML CARP SQ SCH (06:06)
[2016-09-25] MEDS: CEFTRIAXONE SOD INJ 1 GM in DEXTROSE 5% ADD-VANTAGE 50ML 50 ML IV SCH (06:07)
[2016-09-25 07:34] VITALS: BP 145/77; PULSE 68; TEMP 36.6; O2SAT 95
[2016-09-25] MEDS: PHENAZOPYRIDINE HCL 100 MG TAB PO SCH ×2 (07:51→13:02)
[2016-09-25] MEDS: ATORVASTATIN 20 MG TAB PO SCH (07:52)
[2016-09-25] MEDS: ISOSORBIDE DINITRATE 20 MG TAB PO SCH ×2 (07:52→12:25)
[2016-09-25] MEDS: CLOPIDOGREL BISULFATE 75 MG TAB PO SCH (07:52)
[2016-09-25] MEDS: CARBIDOPA/LEVODOPA 25/100MG EXT REL TAB PO SCH ×2 (07:53→12:25)
[2016-09-25] MEDS: VENLAFAXINE HCL XR 37.5 MG CAPXR PO SCH (07:53)
[2016-09-25] MEDS: PANTOprazole SOD 40 MG TAB PO SCH (07:53)
[2016-09-25] MEDS: ASPIRIN 81 MG ECTAB PO SCH (07:53)
[2016-09-25] MEDS: DOCUSATE SODIUM 100 MG CAP PO SCH (07:53)
[2016-09-25] MEDS: CARVEDILOL 6.25 MG TAB PO SCH (07:54)
[2016-09-25] MEDS: PREGABALIN 50 MG CAP PO SCH (08:03)
[2016-09-25] MEDS: OXYCODONE HCL 20 MG TABCR (OXYCONTIN) PO SCH (08:03)
[2016-09-25] MEDS: INSULIN ASPART 100 UNITS/ML 3 ML PEN SC SCH ×2 (08:10→12:11)
[2016-09-25] MEDS: MICONAZOLE NITRATE POWDER 43 GM EXT PRN (08:11)
[2016-09-25 08:26] LABS: BUN/CREATININE RATIO 15.3 (10-20); CALCIUM 8.7 mg/dl (8.5-10.1); CREATININE 1.3 mg/dl (0.60-1.20)
[2016-09-25] MEDS ORDERED: BISACODYL 10 MG SUPP PR STA (09:46)
[2016-09-25] MEDS ORDERED: CIPROFLOXACIN 500 MG TAB PO ONE (10:30)
[2016-09-25] MEDS ORDERED: AMOXICILLIN/CLAVULANATE TAB 875 MG TAB PO ONE (11:30)
[2016-09-25] MEDS ORDERED: CEFU500T16 PO (12:56)
[2016-09-25] MEDS ORDERED: PHEN-1042 PO (12:57)
--- NOTE | 2016-09-25 12:59 | Discharge Instructions ---
Discharge Instructions Date of Service Sep 25, 2016. Admission Reason for Admission: UTI Discharge Discharge Diagnosis / Problem: UTI Discharge Goals Goal(s): Decrease discomfort, Improve function, Increase independence, Improve disease control, Learn about illness, Diagnostic testing, Therapeutic intervention, Prevent Disease Progression Activity Recommendations Activity Limitations: resume your previous activity Exercise/Sports Limitations: none . Instructions / Follow-Up Instructions / Follow-Up Patient to be discharged home Please take antibiotic ceftin 500 mg tablet twice a day for 5 more days, can then resume on doxycycline Please take pyridium 100 mg tablet up to three times a day as needed for burning /pain on urination Please follow up with Dr. Villanueva in 1 week Current Hospital Diet Patient's current hospital diet: AHA Diet (Heart Healthy), Diabetes Type 2 Diet Discharge Diet Recommended Diet: AHA Diet (Heart Healthy), Diabetes Type 2 Diet Pending Studies Studies pending at discharge: no Medical Emergencies . Who to Call and When: Medical Emergencies: If at any time you feel your situation is an emergency, please call 911 immediately. . Non-Emergent Contact Non-Emergency issues call your: Primary Care Provider Call Non-Emergent contact if: you have a fever, your pain is worsening . . "Provider Documentation" section prepared by Morales Irene. . VTE Core Measure Inpt VTE Proph given/why not?: Unfractionated heparin SQ
--- NOTE | 2016-09-25 13:29 | Discharge Summary ---
Discharge Summary Date of Service Sep 25, 2016. Discharge Summary Admission Date: Sep 21, 2016 at 06:43 Discharge Date: Sep 25, 2016 Discharge Disposition: Home Principal Diagnosis: UTI Medication Reconciliation New Medications: Cefuroxime Axetil (Ceftin) 500 Mg Tab 500 MG PO BID, #10 TAB Phenazopyridine HCl (Phenazopyridine HCl) 100 Mg Tab 100 MG PO TID, #30 TAB Continued Medications: Aspirin (Aspirin) 81 Mg Chw 81 MG PO QAM, 3 Refills Atorvastatin (Lipitor) 40 Mg Tab 40 MG PO QAM, TAB Carbidopa/Levodopa (Sinemet Cr 25MG/100MG) Tabcr 2 TAB PO QID, TAB Carvedilol (Coreg) 6.25 Mg Tab 6.25 MG PO AMPM Clopidogrel (Plavix) 75 Mg Tab 75 MG PO QAM, TAB Docusate Sodium (Colace) 100 Mg Cap 100 MG PO BID Doxycycline Monohydrate (Monodox) 100 Mg Cap 100 MG PO HS, CAP Folic Acid (Folvite) 1 Mg Tab 1 MG PO QAM, TAB Insulin Human NPH (Humulin N) 1,000 Units/10 Ml Inj 24 UNITS SQ AMPM Insulin Lispro (Human) (Humalog) 100 Unit/Ml Inj 4 UNITS SC AMPM Isosorbide Dinitrate (Isordil) 20 Mg Tab 20 MG PO BID@0700,1200 for 30 Days, #60 TAB Oxycodone HCl (Oxycodone HCl) 5 Mg Tab 5 MG PO Q6 PRN for Pain Oxycodone Hcl (Oxycontin) 20 Mg Tab 20 MG PO BID, TAB Pantoprazole (Protonix) 40 Mg Tab 40 MG PO QAM, #30 TAB Pregabalin (Lyrica) 50 Mg Cap 50 MG PO BID Prochlorperazine Maleate (Compazine) 10 Mg Tab 10 MG PO QPM, TAB Venlafaxine Hcl (Effexor Xr) 37.5 Mg Cap 1 CAP PO QAM for 30 Days, #30 CAP 1 Refill Discharge Exam Review of Systems: Constitutional: No fever, No chills Eyes: No worsening of vision, No eye pain, No redness, No discharge Respiratory: No cough, No sputum, No wheezing, No shortness of breath, No dyspnea on exertion, No dyspnea at rest Cardiovascular: No chest pain, No orthopnea, No PND, No edema Abdomen: No pain, No nausea, No vomiting, No diarrhea Musculoskeletal: No joint pain, No muscle pain, No swelling, No calf pain Genitourinary - Female: + dysuria, No urinary frequency, No urinary urgency , No urinary incontinence Neurologic: No memory loss, No paralysis, No weakness, No numbness/tingling Psychiatric: No depression symptoms, No anhedonism, No anxiety, No insomnia Endocrine: No fatigue, No excessive thirst, No excessive urination Integumentary: No rash, No itch Physical Exam: General Appearance: WD/WN, no apparent distress Eyes: normal inspection, PERRL, EOMI, sclerae normal Neck: supple, no adenopathy, thyroid normal, no JVD Respiratory/Chest: chest non-tender, lungs clear, normal breath sounds, no respiratory distress Cardiovascular: regular rate, rhythm, no edema, no gallop, no JVD Abdomen / GI: normal bowel sounds, non tender, soft, no organomegaly Neurologic/Psychiatric: no motor/sensory deficits, alert, normal mood/affect , oriented x 3 Skin: normal color, warm/dry, no rash Lymphatic: no adenopathy Hospital Course 80 y/o F Hx CAD, HTN, PAF, DM, Parkinson's, recurrent UTIs. Pt presents with dysuria and suprapubic/abdominal pain which kept her up overnight. She takes Doxycycline daily for chronic suppression. She denies a fever or rigors. 1) UTI with sepsis POA - Pain improving with addition of pyridium 100 mg PO TID PRN. She met SIRS criteria on arrival to the ER. We have held Doxy and provided her with Ceftriaxone pending culture results. Most recent culture on record revealed a pansensitive Klebs.Urine c&s - cooley sens klebsiella once again. Discharge on ceftin 500 mg PO BID for 5 more days in addition to pyridium 100 mg PO TID PRN dysuria. Instructed to continue doxycycline after course of ceftin. 2) DM - placed on SS, stable 3) PAF - not a candidate for anticoagulation due to fall risk - monitor shows a sinus tach on arrival - cont B marvin 4) CAD - no evidence of ACS - cont ASA, Bblocker, Statin, Imdur 5) Parkinson's - cont Sinemet Total Time Spent: Greater than 30 minutes This includes examination of the patient, discharge planning, medication reconciliation, and communication with other providers. Discharge Instructions Please refer to the electronic Patient Visit Report (Discharge Instructions) for additional information. Additional Copies To Krishna Villanueva M.D.
[2016-09-25 13:43] VITALS: BP 145/77; PULSE 68; TEMP 36.6; O2SAT 95
[2016-09-25] MEDS ORDERED: CEFUROXIME AXETIL 500 MG TAB PO ONE (13:45)
[2016-09-25] MEDS ORDERED: AMOXICILLIN/CLAVULANATE TAB 875 MG TAB PO SCH (17:00)
[2016-09-25] MEDS ORDERED: CIPROFLOXACIN 500 MG TAB PO SCH (21:00)
== END 2016-09-25 14:15 | disposition home health service (06) | DRG 872 ==
LOC: C.EDB 04:51 → C.MS2W 06:43 → ENRESERV 08:09
PROVIDERS: ADMIT Internal Medicine; ATTEND Hospitalist
DX: A41.9 Sepsis, unspecified organism (principal); N39.0 Urinary tract infection, site not specified; I25.10 Atherosclerotic heart disease of native coronary artery without angina pectoris; I10 Essential (primary) hypertension; I48.0 Paroxysmal atrial fibrillation; E11.9 Type 2 diabetes mellitus without complications; G20 Parkinson's disease; B96.1 Klebsiella pneumoniae [K. pneumoniae] as the cause of diseases classified elsewhere; Z79.2 Long term (current) use of antibiotics; Z83.3 Family history of diabetes mellitus; Z79.02 Long term (current) use of antithrombotics/antiplatelets; Z79.4 Long term (current) use of insulin; Z79.82 Long term (current) use of aspirin; Z82.49 Family history of ischemic heart disease and other diseases of the circulatory system

== ENCOUNTER 2018-06-11 10:43 | Inpatient (IN) ==
--- OUTSIDE RECORDS SUMMARY | 2018-06-11 10:47 | External Medical Summary | Continuity of Care Document ---
:1935 Author Name Kera Syed, Provider Address Unavailable Unavailable , Care Team Providers Name Role Phone Shant Richard M.D., I. Unavailable [email or web address] Herrera M.D. Unavailable [email or web address], L Unavailable Unavailable Unavailable Unavailable Unavailable Problems Arthritis (716.90) (M19.90) Colon cancer (153.9) (C18.9) Congestive heart failure (428.0) (I50.9) Chemotherapy management, encounter for (V58.11) (Z51.11) Hypertension (401.9) (I10) Calculus of kidney (592.0) (N20.0) Stomach ulcer (531.90) (K25.9) Heart trouble (429.9) (I51.9) Constipation (564.00) (K59.00) Chest pain (786.50) (R07.9) Depression (311) (F32.9) Backache (724.5) (M54.9) Gastroparesis (536.3) (K31.84) Cirrhosis (571.5) (K74.60) Anemia (285.9) (D64.9) Hyperkalemia (276.7) (E87.5) Polyneuropathy (356.9) (G62.9) Dyslipidemia (272.4) (E78.5) Dysmetabolic syndrome X (277.7) (E88.81) Morbid obesity (278.01) (E66.01) Anxiety state (300.00) (F41.1) Osteoarthrosis (715.90) (M19.90) Coronary atherosclerosis (414.00) (I25.10) 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 Refills: 0 Carbidopa-Levodopa 25-100 MG Oral Tablet; TAKE 2 TABLETS 4 T IMES DAILY. Refills: 0 Carvedilol 6.25 MG Oral Tablet; TAKE 1 TABLET TWICE DAILY WI TH MEALS. Quantity: 60 Refills: 5 Clopidogrel Bisulfate 75 MG Oral Tablet; TAKE 1 TABLET DAILY . Quantity: 30 Refills: 11 Vitamin D 2000 UNIT Oral Capsule; TAKE 1 CAP DAILY. Refills: 0 Benadryl 25 MG CAPS; TAKE 2 CAPSULES 1 HOUR BEFORE PROCEDURE . Refills: 0 Docusate Sodium 100 MG Oral Capsule; TAKE 1 CAPSULE TWICE DA CATRACHITA NEEDED. Refills: 0 Doxycycline Hyclate 100 MG Oral Tablet; TAKE 1 TABLET DAILY AT BEDTIME. Refills: 0 Folic Acid 1 MG Oral Tablet; TAKE 1 TABLET DAILY. Quantity: 30 Refills: 11 HumaLOG 100 UNIT/ML Subcutaneous Solutio n; INJECT 4 UNTIS WITH BREAFAST AND 4 UNTIS WITH DINNER DAILY. Refills: 0 HumuLIN N 100 UNIT/ML Subcutaneous Suspe nsion; INJECT 24 UNITS AM AND 24 UNITS PM DAILY. Refills: 0 Isosorbide Dinitrate 20 MG Oral Tablet; take 1 tab twice laura ly. Refills: 0 Nitroglycerin 0.4 MG Sublingual Tablet S ublingual; PLACE 1 TABLET UNDER THE TONGUE EVERY 5 MINUTES FOR UP TO 3 DOSES NEEDED FOR CHEST PAIN.CALL 911 IF PAIN PERSISTS. Refills: 0 oxyCODONE HCl - 5 MG Oral Tablet; TAKE 1 TABLET EVERY 6 HOURS NEEDED FOR BREAKTHROUGH PAIN. Quantity: 60 Refills: 0 OxyCONTIN 20 MG TB12; TAKE 1 TABLET EVERY 12 HOURS NEEDED FOR PAIN. Refills: 0 Pantoprazole Sodium 40 MG Oral Tablet Delayed Release; TAKE 1 TABLET DAILY. Quantity: 1 Refills: 3 Polyethylene Glycol 3350 Oral Powder; NC X 1 CAPFUL IN 8 OUNCES OF WATER AND DRINK AT BEDTIME NEEDED FOR CONSTIPATION. Refills: 0 Lyrica 100 MG Oral Capsule; TAKE 1 CAPSULE TWICE DAILY. Refills: 0 Senna 8.6 MG Oral Tablet; TAKE 2 TABS AT HS DAILY. Refills: 0 Sucralfate 1 GM Oral Tablet; TAKE 1 TABL ET 4 TIMES DAILY, BEFORE MEALS AND AT BEDTIME. Refills: 0 Effexor 37.5 MG TABS; TAKE 1 TABLET DAILY. Refills: 0 Tamsulosin HCl - 0.4 MG Oral Capsule; TAKE 1 CAPSULE D Yahaira Roque I. Start: 09-May-2016 Quantity: 30 Refills: 6 Procedures History of Heart Surgery Status: Complet ed History of Cholecystectomy Status: Compl eted History of Colon Surgery Status: Complet ed Immunizations Immunizations not documented Family History Mother Family history of diabetes mellitus (V18.0) (Z83.3) Status: Active Sister Family history of cardiac disorder (V17.49) (Z82.49) Status: Active Brother Family history of cardiac disorder (V17.49) (Z82.49) Status: Active Social History - Smoking Status Never smoker Plan of Treatment Planned Observations Planned Goals not documented Results No Known Results Results not documented Encounters Appointment; Shant Richard M.D. 15-Aug-2016 11:40 Encounter Diagnosis: Problem not documented Appointment; Vascular, Studies [facility] [place] 02-Aug-2016 10:30 Encounter Diagnosis: Problem not documented Appointment; Vascular, Studies [facility] [place] 02-Aug-2016 10:00 Encounter Diagnosis: Problem not documented Appointment; Vascular, Studies [facility] [place] 18-Jul-2016 15:00 Encounter Diagnosis: Problem not documented Appointment; Vascular, Studies [facility] [place] 18-Jul-2016 13:00 Encounter Diagnosis: Problem not documented Appointment; Vascular, Studies [facility] [place] 27-Jun-2016 15:00 Encounter Diagnosis: Problem not documented Appointment; Vascular, Studies [facility] [place] 27-Jun-2016 13:00 Encounter Diagnosis: Problem not documented Appointment; Vascular, Studies [facility] [place] 12-Jun-2016 12:00 Encounter Diagnosis: Problem not documented Appointment; Vascular, Studies [facility] [place] 12-Jun-2016 10:00 Encounter Diagnosis: Problem not documented Appointment; Kaiser Herrera M.D. 24-Oct-2016 9:00 Encounter Diagnosis: Problem not documented
[2018-06-11] MEDS ORDERED: ONDANSETRON INJ 2 MG/ML 2 ML VIAL IV STA (11:09)
[2018-06-11] MEDS ORDERED: ASPIRIN CHEW 324 MG PO STA (11:10)
[2018-06-11] MEDS ORDERED: SODIUM CHLORIDE 0.9% 1000ML 1,000 ML IV SCH ×2 (11:15→19:00)
--- NOTE | 2018-06-11 11:19 | XRay Report ---
XR chest 1V portable CLINICAL HISTORY: CP, RUQ pain pain COMPARISON STUDY: 08/15/2016 FINDINGS: The bones soft tissues and hemidiaphragms are normal. The cardiomediastinal silhouette is n ormal. The lungs are clear. The pulmonary vasculature is normal. IMPRESSION: Negative chest. The above report was generated using voice recognition software. It may contain grammatical, syntax or spelling errors. Electronically signed by: Alex Coughlin M.D. 06/11/2018 11:17 AM
[2018-06-11 11:32] LABS: Basophils # (auto) 0.02 K/uL (0-0.2); Basophils % (auto) 0.2 %; Eosinophils # (auto) 0.08 K/uL (0-0.5); Eosinophils % (auto) 0.7 %; Hematocrit (blood only) 37.2 % (37-47); Hemoglobin 11.4 g/dL (12.0-16.0); Immature Granulocytes # (auto) 0.04 K/uL (0.00-0.02); Immature Granulocytes % (auto) 0.4 %; Lymphocytes # (auto) 0.78 K/uL (1.2-3.4); Lymphocytes % (auto) 7.2 %; Mean Corpuscular Hgb Conc 30.6 g/dL (32-36); Mean Corpuscular Volume 85.3 fL (80-100); Mean Platelet Volume 12.3 fL (7.4-10.4); Monocytes # (auto) 0.59 K/uL (0.11-0.59); Monocytes % (auto) 5.4 %; Neutrophils # (auto) 9.39 K/uL (1.4-6.5); Neutrophils % (auto) 86.1 %; Platelet Count 134 K/uL (130-400); RDW Coefficient of Variation 17.9 % (11.5-14.5); RDW Standard Deviation 55.8 fL (36.4-46.3); Red Blood Count 4.36 M/uL (4.2-5.4)
[2018-06-11 11:40] LABS: Albumin Level 3.2 gm/dl (3.4-5.0); BUN Creatinine Ratio 22.7 (10-20); Calcium 9.2 mg/dl (8.5-10.1); Creatinine Clr Calc Pharmacy 45.3 ml/min; Est GFR (African American) 55.8; Est GFR (Non-African American) 48.2
[2018-06-11 11:43] LABS: Albumin Globulin Ratio 0.8 (0.9-2); Bilirubin,Total 1.1 mg/dl (0.2-1); Globulin 4.3 gm/dl (2.5-4.0); Total Protein 7.5 gm/dl (6.4-8.2)
[2018-06-11 12:49] LABS: Appearance Urine Turbid (Clear); Bacteria Urine Automated 3+ (Negative); Bilirubin Urine Negative (Negative); Blood Urine 2+ (Negative); Color Urine Yellow; Epithelial Cell Urine Auto 0-5 /lpf (0-5); Glucose Urine UA Negative (Negative); Ketones Urine Negative (Negative); Leukocyte Esterase Urine 3+ (Negative); Nitrite Urine Positive (Negative); Protein Urine 1+ (Negative); Specific Gravity Urine 1.017 (1.000-1.030); Urobilinogen Urine Negative (Negative); WBC Urine Automated >30 /hpf (0-5); pH Urine 6.5 (4.5-7.5)
--- NOTE | 2018-06-11 13:16 | Ultrasound Report ---
US gallbladder HISTORY: 82 years-old Female RUQ pain acute right upper quadrant abdominal pain COMPARISON: Renal ultrasound 08/08/2016, CT 02/16/2016 TECHNIQUE: Multiple real-time sonographic images of the abdominal right upper quadrant were obtained assessing grayscale appearance and color flow FINDINGS: The pancreas is suboptimally visualized. The visualized pancreatic head appears heterogeneous and atr ophic. The common bile duct is mildly dilated at 1.3 cm which appears unchanged from comparison. Prio r cholecystectomy. Heterogeneous appearance of the liver, notably the right hepatic lobe is heterogen eous. The previously described fibrosis or mass of the right hepatic lobe is not definitively seen. S uggestion of mild marginal nodularity of the liver. No ascites. The imaged right kidney demonstrates diffuse cortical thinning without hydronephrosis. IMPRESSION: 1. Prior cholecystectomy with unchanged likely postsurgical dilation of the common bile duct. 2. Heterogeneous appearance of the liver redemonstrated with suggestion of fibrotic changes/cirrhosis without ascites identified. Correlate with LFTs. 3. The previously described fibrosis versus mass of the right hepatic lobe seen on CT from 02/16/2016 is not definitively seen. The above report was generated using voice recognition software. It may contain grammatical, syntax o r spelling errors. Electronically signed by: Marito Grimes M.D. 06/11/2018 1:15 PM
[2018-06-11] MEDS ORDERED: DiphenhydrAMINE HCL 50 MG/ML VIAL IV STA (13:35)
[2018-06-11] MEDS ORDERED: methylPREDNISolone 125 MG in SYRINGE 0 ML IV STA (13:35)
[2018-06-11] MEDS ORDERED: methylPREDNISolone 125 MG/2 ML VIAL ONE (13:54)
[2018-06-11] MEDS ORDERED: cefTRIAXone SODIUM 1,000 MG/50 ML BAG IV STA (13:57)
[2018-06-11] MEDS ORDERED: OXYCODONE HCL IR 5 MG TAB (IMMEDIATE RELEASE) PO STA (14:13)
[2018-06-11] MEDS ORDERED: IOVERSOL 100ml IV PRN (14:24)
[2018-06-11] MEDS ORDERED: HydrALAZINE HCL 20 MG/ML VIAL IV STA (14:48)
--- NOTE | 2018-06-11 14:52 | CT Scan Report ---
CT abd pelvis IV con only CLINICAL HISTORY: epigastric pain, elevated liver enzymes COMPARISON STUDY: CT scan dated 02/16/2016 biliary ultrasound dated 06/11/2018 TECHNIQUE: The patient was scanned in a dynamic helical fashion during intravenous administration of 94 cc of Optiray 320. A dose lowering technique was utilized adhering to the principles of ALARA. CT DOSE: 1316.45 mGy.cm FINDINGS: Lower chest: There are basilar atelectatic changes present. Liver: The liver has a cirrhotic morphology. There is mild intrahepatic biliary ductal dilatation. Th ere is a 2 cm exophytic nodule arising from the anterior aspect of the right lobe. The common bile du ct is dilated and of increased density. There is mild infiltration around the common hepatic duct. Th e findings are consistent with either extensive cholangitis, stone filled duct, or cholangiocarcinoma . ERCP is recommended in follow-up. Gallbladder: Surgically absent Spleen: Normal in size and attenuation. Pancreas: The pancreas is mildly atrophic. There is borderline ductal dilatation. 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 Kidneys: No solid renal masses are visualized. There is bilateral uroepithelial thickening. Bowel: There are no transition zones indicate bowel obstruction. There is no evidence of acute divert iculitis. There is a sigmoid anastomotic suture line. Peritoneum: There is no intraperitoneal free air or abdominal ascites. There is a small fat-containin g umbilical hernia. Vasculature: The abdominal aorta is normal in course and caliber. Adenopathy: None. Pelvic viscera: The bladder, and pelvic viscera are unremarkable. Skeletal structures: No destructive osseous lesions are seen. IMPRESSION: 1. Cirrhotic morphology of the liver 2. Intrahepatic biliary ductal dilatation 3. Interval development of a 2 cm exophytic mass arising from the right lobe of the liver 4. Markedly abnormal common hepatic and common bile duct which is dilated and of increased density. I n addition there is periductal stranding. Likely diagnostic considerations include extensive cholangi tis, stone filled duct, or cholangiocarcinoma. An ERCP is recommended in follow-up. 5. Bilateral uroepithelial thickening. 6. 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 06/11/2018 2:51 PM
[2018-06-11] MEDS ORDERED: PIPERACILL/TAZOBAC CONSULT ACTIVE PRN ×2 (15:05→20:04)
[2018-06-11] MEDS ORDERED: PIPERACILLIN/TAZOBACTAM 4.5 GM in DEXTROSE 5% 100 ML IV STA (15:05)
--- NOTE | 2018-06-11 16:13 | Emergency Department Note ---
Entered by Zuly Hansen acting as a scribe for History of Present Illness General Chief complaint: Chest Pain Stated complaint: chest pain Source: patient Mode of arrival: EMS Limitations: no limitations History of Present Illness Provider complaint: abdominal pain Onset (ago): hour(s) (this morning) Location: abdomen Pain Consistency: + other (persistent) Maximum Pain Intensity: 6 Quality: + other (RUQ abd pain) Associated symptoms: + chest pain The patient is an 82 year old female who presents to the ER via EMS with complaints of an episode of abdominal pain that began this morning. The patient reports that the pain is located in the right upper quadrant of her abdomen. She states that she slept baseline last night and woke up with the pain. She notes that she did have an episode of chest pain earlier but denies any currently. She denies any treatments prior to arrival. She also denies eating before the pain onset. The patient denies ever having a cholecystectomy performed. Home Medications Home Medications Medication Instructions Recorded Confirmed Type Lyrica 50 mg PO TID 06/11/18 06/11/18 History ascorbic acid (vitamin C) 500 mg PO DAILY 06/11/18 06/11/18 History carbidopa-levodopa [Sinemet CR] 2 tab PO TID 06/11/18 06/11/18 History carvedilol 6.25 mg PO BID 06/11/18 06/11/18 History docusate sodium 100 mg PO BID 06/11/18 06/11/18 History ferrous sulfate 325 mg PO DAILY 06/11/18 06/11/18 History folic acid 1 mg PO DAILY 06/11/18 06/11/18 History magnesium oxide 400 mg PO DAILY 06/11/18 06/11/18 History nitroglycerin See Rx Instructions .ROUTE .COMPLEX 06/11/18 06/11/18 History oxycodone 5 mg PO Q6 PRN 06/11/18 06/11/18 History oxycodone [OxyContin] 20 mg PO Q12H 06/11/18 06/11/18 History pantoprazole 40 mg PO DAILY 06/11/18 06/11/18 History pentoxifylline 400 mg PO TID 06/11/18 06/11/18 History polyethylene glycol 3350 [GlycoLax] 17 g PO DAILY 06/11/18 06/11/18 History prochlorperazine maleate 10 mg PO TID PRN 06/11/18 06/11/18 History sucralfate 1 g PO QID 06/11/18 06/11/18 History trazodone 50 mg PO BID 06/11/18 06/11/18 History venlafaxine 37.5 mg PO DAILY 06/11/18 06/11/18 History piperacillin-tazobactam [Zosyn] 3.375 gm IV Q8H #1 ea 06/12/18 Rx sodium chloride 0.9 % 80 ml CONTINUOUS IV INFUSION Q1H 06/12/18 Rx #1200 ml Allergies Allergy/AdvReac Type Severity Reaction Status Date / Time Iodinated Contrast- Oral and Allergy Intermediate IV Verified 06/11/18 13:28 IV Dye CONTRAST- HIVES mivacurium Allergy Mild dizzy, Verified 06/11/18 13:28 nauseous (per patient) Bactrim Allergy Unknown patient Verified 09/21/16 05:17 unsure Cipro Allergy Unknown unknown Verified 09/21/16 05:17 ciprofloxacin Allergy Unknown unknown Verified 06/11/18 13:28 nitrofurantoin Allergy Unknown unknown Verified 06/11/18 13:28 sulfamethoxazole Allergy Unknown patient Verified 06/11/18 13:28 unsure trimethoprim Allergy Unknown patient Verified 06/11/18 13:28 unsure acarbose AdvReac Mild GI SYMPTOMS Verified 06/11/18 13:28 insulin glargine AdvReac Mild "Very ill" Verified 06/11/18 18:24 [From Lantus U-100 Insulin] - see comments metformin AdvReac Mild GI SYMPTOMS Verified 06/11/18 13:28 Penicillins AdvReac Mild dizzy, Verified 06/11/18 13:28 nausous (per patient) tolerated zosyn [id number] troglitazone AdvReac Mild GI SYMPTOMS Verified 06/11/18 13:28 Past Med/Surg History Medical History Coronary artery disease (Chronic) "s/p PCI ? [place]" Hypertension (Chronic) GERD (gastroesophageal reflux disease) (Chronic) Diabetes mellitus, type 2 (Chronic) Diabetic neuropathy (Chronic) Parkinson's disease (Chronic) Recurrent urinary tract infection (Chronic) Chronic pain syndrome (Chronic) "arthritis + neuropathy" Atrial fibrillation (Chronic) "per old records" Surgical History Status post cardiac catheterization (Chronic) Status post coronary artery stent placement (Chronic) Status post cholecystectomy (Chronic) Social History Preferred Language: Sammarinese Communication Ability: Effective [employer]S Soccer [employer] Required: No Beliefs That Will Affect Care: None Current Living Situation: Family Current Living Situation Comment: Patient drowsy/ unable to answer at this time Feels Safe at Home: Yes Smoking Status: Unknown if ever smoked Review of Systems See HPI for pertinent positives & negatives. and A total of 10 systems reviewed and were otherwise negative Physical Exam Vital Signs Vital Signs - 24 hr 06/11/18 10:54 06/11/18 12:27 06/11/18 13:21 Sepsis Recent Fever Within 48 Hours No Sepsis New/Unexplained Change in Mental Status No Sepsis Action Taken by Nursing No Action Required Pulse Rate 91 H Pulse Rate [Left] 78 86 Respiratory Rate 21 12 18 Respiratory Effort / Characteristics Non-Labored Non-Labored Respiratory Depth Normal Normal Normal Blood Pressure 147/72 H Blood Pressure [Right Arm] 148/69 H 192/76 H Blood Pressure Mean 97 Blood Pressure Mean [Right Arm] 95 114 Blood Pressure Position Sitting Pulse Oximetry 93 98 97 Oxygen Delivery Method Room Air Room Air Room Air 06/11/18 14:09 06/11/18 14:39 06/11/18 15:32 Sepsis Recent Fever Within 48 Hours Sepsis New/Unexplained Change in Mental Status Sepsis Action Taken by Nursing Pulse Rate Pulse Rate [Left] 87 80 82 Respiratory Rate 14 12 20 Respiratory Effort / Characteristics Non-Labored Non-Labored Non-Labored Respiratory Depth Normal Normal Normal Blood Pressure Blood Pressure [Right Arm] 198/100 H 217/100 H 167/80 H Blood Pressure Mean Blood Pressure Mean [Right Arm] 132 139 109 Blood Pressure Position Pulse Oximetry 96 96 97 Oxygen Delivery Method Room Air Room Air Room Air Vital signs reviewed. General: Chronically ill-appearing elderly, in no significant distress. HEENT: No scleral icterus, PERRLA, neck supple. Atraumatic. Cardiovascular: Regular rate and rhythm, no extra sounds. Pulmonary: Clear to auscultation bilaterally, normal work of breathing. Abdomen: Soft, nontender, nondistended, positive bowel sounds. Obese. Tender in the right upper quadrant. Musculoskeletal: Atraumatic, no peripheral edema. Neurologic: Patient awake alert and oriented x 3. Skin: Warm, dry, no rash Course 1106: Past medical records reviewed. The patient was evaluated in room C3. A complete history and physical examination was performed. Administered Medications Discontinued Medications Aspirin (Aspirin) 324 mg PO NOW STA Stop: 06/11/18 11:11 Last Admin: 06/11/18 12:07 Dose: 324 mg Documented by: [id number] Carbidopa/Levodopa (Sinemet Cr 50/200mg) 2 tab PO TID SARAH Stop: 07/11/18 20:59 Last Admin: 06/12/18 20:05 Dose: 2 tab Documented by: [id number] Admin: 06/12/18 13:38 Dose: 2 tab Documented by: [id number] Admin: 06/12/18 09:39 Dose: 2 tab Documented by: [id number] Admin: 06/11/18 21:34 Dose: 2 tab Documented by: [id number] Carvedilol (Coreg) 6.25 mg PO BIDM SARAH Stop: 07/11/18 20:59 Last Admin: 06/12/18 19:43 Dose: 6.25 mg Documented by: [id number] Admin: 06/12/18 09:46 Dose: 6.25 mg Documented by: [id number] Admin: 06/11/18 21:34 Dose: 6.25 mg Documented by: [id number] Diphenhydramine HCl (Benadryl) 25 mg IV NOW STA Stop: 06/11/18 13:36 Last Admin: 06/11/18 13:56 Dose: 25 mg Documented by: [id number] Docusate Sodium (Colace) 100 mg PO BID SARAH Stop: 07/11/18 20:59 Last Admin: 06/12/18 20:04 Dose: Not Given Documented by: [id number] Admin: 06/12/18 09:38 Dose: 100 mg Documented by: [id number] Admin: 06/11/18 21:34 Dose: 100 mg Documented by: [id number] Doxycycline Hyclate (Vibramycin) 100 mg PO DAILY SARAH Stop: 07/11/18 19:59 Last Admin: 06/12/18 09:41 Dose: 100 mg Documented by: [id number] Admin: 06/11/18 21:34 Dose: 100 mg Documented by: [id number] Hydralazine HCl (Hydralazine Hcl) 10 mg IV NOW STA Stop: 06/11/18 14:49 Last Admin: 06/11/18 15:03 Dose: 10 mg Documented by: [id number] Sodium Chloride (Nss 1000ml) 1,000 mls @ 125 mls/hr IV .Q8H SARAH Stop: 06/11/18 19:14 Last Infusion: 06/11/18 20:08 Dose: 0 mls/hr Documented by: [id number] Admin: 06/11/18 12:07 Dose: 125 mls/hr Documented by: [id number] Methylprednisolone 125 mg/ (Syringe) 2 mls @ 1.5 mls/min IV NOW STA Stop: 06/11/18 13:36 Last Admin: 06/11/18 13:57 Dose: Not Given Documented by: [id number] Ceftriaxone Sodium (Rocephin) 1,000 mg in 50 mls @ 100 mls/hr IV NOW STA Stop: 06/11/18 14:26 Last Infusion: 06/11/18 16:12 Dose: 0 mls/hr Documented by: [id number] Admin: 06/11/18 14:30 Dose: 100 mls/hr Documented by: [id number] Piperacillin Sod/Tazobactam (Sod 4.5 gm/ Dextrose) 120 mls @ 30 mls/hr IV Q8H STA; Protocol Stop: 06/11/18 19:04 Last Infusion: 06/11/18 20:08 Dose: 0 mls/hr Documented by: [id number] Admin: 06/11/18 16:13 Dose: 30 mls/hr Documented by: [id number] Sodium Chloride (Nss 1000ml) 1,000 mls @ 80 mls/hr IV .[id number] SARAH Stop: 06/12/18 07:29 Last Infusion: 06/12/18 09:03 Dose: 0 mls/hr Documented by: [id number] Admin: 06/11/18 20:33 Dose: 80 mls/hr Documented by: [id number] Piperacillin Sod/Tazobactam (Sod 3.375 gm/ Dextrose) 115 mls @ 28.75 mls/hr IV Q8H [facility]; Protocol Stop: 06/21/18 21:59 Last Infusion: 06/12/18 17:58 Dose: 0 mls/hr Documented by: [id number] Admin: 06/12/18 13:53 Dose: 28.8 mls/hr Documented by: [id number] Infusion: 06/12/18 09:37 Dose: 0 mls/hr Documented by: [id number] Admin: 06/12/18 05:32 Dose: 28.8 mls/hr Documented by: [id number] Infusion: 06/12/18 01:30 Dose: 0 mls/hr Documented by: [id number] Admin: 06/11/18 21:30 Dose: 28.8 mls/hr Documented by: [id number] Sodium Chloride (Nss 1000ml) 1,000 mls @ 80 mls/hr IV .[id number] [facility] Stop: 07/12/18 08:59 Last Infusion: 06/12/18 14:00 Dose: 80 mls/hr Documented by: [id number] Admin: 06/12/18 09:38 Dose: 80 mls/hr Documented by: [id number] Indomethacin (Indocin) 100 mg [place] ONE ONE Stop: 06/12/18 08:17 Last Admin: 06/12/18 18:08 Dose: Not Given Documented by: [id number] Insulin Aspart (Novolog Flexpen) 0 units SC ACHS SARAH Stop: 07/11/18 20:59 Last Admin: 06/11/18 21:42 Dose: 3 units Documented by: [id number] Cosigned by: [id number] Insulin Aspart (Novolog Flexpen) 0 units SC Q6 SARAH Stop: 07/12/18 00:00 Last Admin: 06/12/18 05:40 Dose: 2 units Documented by: [id number] Cosigned by: [id number] Admin: 06/12/18 00:17 Dose: 3 units Documented by: [id number] Cosigned by: [id number] Insulin Aspart (Novolog Flexpen) 0 units SC ACHS SARAH Stop: 07/12/18 11:29 Last Admin: 06/12/18 20:03 Dose: 1 units Documented by: [id number] Cosigned by: [id number] Admin: 06/12/18 19:51 Dose: Not Given Documented by: [id number] Cosigned by: [id number] Admin: 06/12/18 12:25 Dose: 3 units Documented by: [id number] Cosigned by: [id number] Insulin Glargine (Lantus Solostar Pen) 23 units SC ONCE ONE Stop: 06/12/18 11:23 Last Admin: 06/12/18 12:23 Dose: 23 units Documented by: [id number] Cosigned by: [id number] Insulin Human Regular (Novolin R U-100 Per Unit) Confirm Administered Dose 10 units .ROUTE .STK-MED ONE Stop: 06/12/18 16:40 Last Admin: 06/12/18 18:28 Dose: Not Given Documented by: [id number] Insulin Human Regular (Novolin R U-100 Per Unit) 10 units IV NOW STA Stop: 06/12/18 16:41 Last Admin: 06/12/18 16:43 Dose: 10 units Documented by: [id number] Cosigned by: [id number] Ioversol (Optiray 320 100ml) 94 ml IV ONCE PRN PRN Reason: Interaction Checking Stop: 06/15/18 14:23 Last Admin: 06/11/18 14:25 Dose: 94 ml Documented by: [id number] Lorazepam (Ativan) Confirm Administered Dose 2 mg .ROUTE .STK-MED ONE Stop: 06/11/18 18:52 Last Admin: 06/11/18 19:16 Dose: 1 mg Documented by: [id number] Methylprednisolone (Solumedrol) Confirm Administered Dose 125 mg .ROUTE .STK-MED ONE Stop: 06/11/18 13:55 Last Admin: 06/11/18 13:56 Dose: 125 mg Documented by: [id number] Ondansetron HCl (Zofran) 4 mg IV NOW STA Stop: 06/11/18 11:10 Last Admin: 06/11/18 12:06 Dose: 4 mg Documented by: [id number] Oxycodone HCl (Roxicodone Immediate Rel) 5 mg PO NOW STA Stop: 06/11/18 14:14 Last Admin: 06/11/18 14:28 Dose: 5 mg Documented by: [id number] Oxycodone HCl (Oxycontin) 20 mg PO Q12 [facility] Stop: 06/25/18 20:59 Last Admin: 06/12/18 20:09 Dose: 20 mg Documented by: [id number] Admin: 06/12/18 09:38 Dose: 20 mg Documented by: [id number] Admin: 06/11/18 21:33 Dose: 20 mg Documented by: [id number] Pantoprazole Sodium (Protonix) 40 mg PO QAM [facility] Stop: 07/12/18 11:29 Last Admin: 06/12/18 12:28 Dose: 40 mg Documented by: [id number] Pentoxifylline (Trental) 400 mg PO TID [facility] Stop: 07/11/18 20:59 Last Admin: 06/12/18 13:38 Dose: 400 mg Documented by: [id number] Admin: 06/12/18 09:40 Dose: 400 mg Documented by: [id number] Admin: 06/11/18 21:33 Dose: 400 mg Documented by: [id number] Pneumococcal Polyvalent Vaccine (Pneumovax-23) 25 mcg IM .ONCE ONE Stop: 06/12/18 06:01 Last Admin: 06/12/18 13:54 Dose: Not Given Documented by: [id number] Pregabalin (Lyrica) 50 mg PO TID [facility] Stop: 07/11/18 20:59 Last Admin: 06/12/18 20:09 Dose: 50 mg Documented by: [id number] Admin: 06/12/18 13:38 Dose: 50 mg Documented by: [id number] Admin: 06/12/18 09:48 Dose: 50 mg Documented by: [id number] Admin: 06/11/18 21:33 Dose: 50 mg Documented by: [id number] Trazodone HCl (Desyrel) 50 mg PO BID [facility] Stop: 07/11/18 20:59 Last Admin: 06/12/18 20:04 Dose: 50 mg Documented by: [id number] Admin: 06/12/18 09:42 Dose: 50 mg Documented by: [id number] Admin: 06/11/18 21:34 Dose: 50 mg Documented by: [id number] Venlafaxine HCl (Effexor Extended Release) 37.5 mg PO DAILY SARAH Stop: 07/12/18 08:59 Last Admin: 06/12/18 09:40 Dose: 37.5 mg Documented by: [id number] Medical Decision Making Differential Diagnosis Differential diagnoses includes but is not limited to gastritis, peptic ulcer di sease, GERD, gallbladder disease, pancreatitis, small bowel obstruction, perforation, malignancy, acute coronary syndrome, pericarditis, ischemic bowel, irritable bowel disease, and irritable bowel syndrome amongst others. Medical Records Attestation: I reviewed the patient's medical records. Home Medications Current Medication List: was personally reviewed by me Laboratory Data Attestation: I reviewed the patient's lab results. Result diagrams: 06/12/18 17:19 06/12/18 07:49 Lab Results 06/11/18 06/11/18 06/11/18 Range/Units 10:53 10:53 10:53 WBC 10.90 H (4.8-10.8) K/uL RBC 4.36 (4.2-5.4) M/uL Hgb 11.4 L (12.0-16.0) g/dL Hct 37.2 (37-47) % MCV 85.3 (80-100) fL MCH 26.1 (25-34) pg MCHC 30.6 L (32-36) g/dL RDW Std Deviation 55.8 H (36.4-46.3) fL RDW Coeff of Cha 17.9 H (11.5-14.5) % Plt Count 134 (130-400) K/uL MPV 12.3 H (7.4-10.4) fL Immature Gran % (Auto) 0.4 % Neut % (Auto) 86.1 % Lymph % (Auto) 7.2 % [place] % (Auto) 5.4 % Eos % (Auto) 0.7 % Baso % (Auto) 0.2 % Immature Gran # (Auto) 0.04 H (0.00-0.02) K/uL Neut # (Auto) 9.39 H (1.4-6.5) K/uL Lymph # (Auto) 0.78 L (1.2-3.4) K/uL [place] # (Auto) 0.59 (0.11-0.59) K/uL Eos # (Auto) 0.08 (0-0.5) K/uL Baso # (Auto) 0.02 (0-0.2) K/uL Giant Platelets PT 10.4 (9.0-12.0) Seconds INR 1.0 (0.9-1.1) Sodium 138 (136-145) mmol/L Potassium 4.0 (3.5-5.1) mmol/L Chloride 102 (98-107) mmol/L Carbon Dioxide 31 (21-32) mmol/L Anion Gap 5.0 (3-11) BUN 24 H (7-18) mg/dl Creatinine 1.06 (0.6-1.2) mg/dl Est Cr Clr Drug Dosing 45.3 ml/min Est GFR ( Amer) 55.8 Est GFR (Non-Af Amer) 48.2 BUN/Creatinine Ratio 22.7 H (10-20) Glucose 183 H (70-99) mg/dl POC Glucose (70-99) Calcium 9.2 (8.5-10.1) mg/dl Magnesium (1.8-2.4) mg/dl Total Bilirubin 1.1 H (0.2-1) mg/dl Direct Bilirubin (0-0.2) mg/dl AST 316 H (15-37) U/L ALT 88 H (12-78) U/L Alkaline Phosphatase 413 H (45-117) U/L Total Protein 7.5 (6.4-8.2) gm/dl Albumin 3.2 L (3.4-5.0) gm/dl Globulin 4.3 H (2.5-4.0) gm/dl Albumin/Globulin Ratio 0.8 L (0.9-2) Lipase 72 L (73-393) U/L Urine Color Urine Appearance (Clear) Urine pH (4.5-7.5) Ur Specific [place] (1.000-1.030) Urine Protein (Negative) Urine Glucose (UA) (Negative) Urine Ketones (Negative) Urine Blood (Negative) Urine Nitrite (Negative) Urine Bilirubin (Negative) Urine Urobilinogen (Negative) Ur Leukocyte Esterase (Negative) Urine WBC (Auto) (0-5) /hpf Urine RBC (Auto) (0-4) /hpf U Hyaline Cast (Auto) (0-5) /lpf U Epithel Cells (Auto) (0-5) /lpf Urine Bacteria (Auto) (Negative) 06/11/18 06/11/18 06/12/18 Range/Units 12:30 21:22 00:15 WBC (4.8-10.8) K/uL RBC (4.2-5.4) M/uL Hgb (12.0-16.0) g/dL Hct (37-47) % MCV (80-100) fL MCH (25-34) pg MCHC (32-36) g/dL RDW Std Deviation (36.4-46.3) fL RDW Coeff of Cha (11.5-14.5) % Plt Count (130-400) K/uL MPV (7.4-10.4) fL Immature Gran % (Auto) % Neut % (Auto) % Lymph % (Auto) % [place] % (Auto) % Eos % (Auto) % Baso % (Auto) % Immature Gran # (Auto) (0.00-0.02) K/uL Neut # (Auto) (1.4-6.5) K/uL Lymph # (Auto) (1.2-3.4) K/uL [place] # (Auto) (0.11-0.59) K/uL Eos # (Auto) (0-0.5) K/uL Baso # (Auto) (0-0.2) K/uL Giant Platelets PT (9.0-12.0) Seconds INR (0.9-1.1) Sodium (136-145) mmol/L Potassium (3.5-5.1) mmol/L Chloride (98-107) mmol/L Carbon Dioxide (21-32) mmol/L Anion Gap (3-11) BUN (7-18) mg/dl Creatinine (0.6-1.2) mg/dl Est Cr Clr Drug Dosing ml/min Est GFR ( Amer) Est GFR (Non-Af Amer) BUN/Creatinine Ratio (10-20) Glucose (70-99) mg/dl POC Glucose 280 H 277 H (70-99) Calcium (8.5-10.1) mg/dl Magnesium (1.8-2.4) mg/dl Total Bilirubin (0.2-1) mg/dl Direct Bilirubin (0-0.2) mg/dl AST (15-37) U/L ALT (12-78) U/L Alkaline Phosphatase (45-117) U/L Total Protein (6.4-8.2) gm/dl Albumin (3.4-5.0) gm/dl Globulin (2.5-4.0) gm/dl Albumin/Globulin Ratio (0.9-2) Lipase (73-393) U/L Urine Color Yellow Urine Appearance Turbid A (Clear) Urine pH 6.5 (4.5-7.5) Ur Specific [place] 1.017 (1.000-1.030) Urine Protein 1+ H (Negative) Urine Glucose (UA) Negative (Negative) Urine Ketones Negative (Negative) Urine Blood 2+ H (Negative) Urine Nitrite Positive A (Negative) Urine Bilirubin Negative (Negative) Urine Urobilinogen Negative (Negative) Ur Leukocyte Esterase 3+ H (Negative) Urine WBC (Auto) >30 H (0-5) /hpf Urine RBC (Auto) 10-30 H (0-4) /hpf U Hyaline Cast (Auto) 1-5 (0-5) /lpf U Epithel Cells (Auto) 0-5 (0-5) /lpf Urine Bacteria (Auto) 3+ H (Negative) 06/12/18 06/12/18 06/12/18 Range/Units 05:39 07:49 07:49 WBC 4.68 L D (4.8-10.8) K/uL RBC 4.16 L (4.2-5.4) M/uL Hgb 10.8 L (12.0-16.0) g/dL Hct 35.2 L (37-47) % MCV 84.6 (80-100) fL MCH 26.0 (25-34) pg MCHC 30.7 L (32-36) g/dL RDW Std Deviation 54.7 H (36.4-46.3) fL RDW Coeff of Cha 17.6 H (11.5-14.5) % Plt Count 107 L (130-400) K/uL MPV 12.1 H (7.4-10.4) fL Immature Gran % (Auto) 0.2 % Neut % (Auto) 81.9 % Lymph % (Auto) 12.8 % [place] % (Auto) 4.9 % Eos % (Auto) 0.2 % Baso % (Auto) 0.0 % Immature Gran # (Auto) 0.01 (0.00-0.02) K/uL Neut # (Auto) 3.83 (1.4-6.5) K/uL Lymph # (Auto) 0.60 L (1.2-3.4) K/uL [place] # (Auto) 0.23 (0.11-0.59) K/uL Eos # (Auto) 0.01 (0-0.5) K/uL Baso # (Auto) 0.00 (0-0.2) K/uL Giant Platelets 1+ PT (9.0-12.0) Seconds INR (0.9-1.1) Sodium 140 (136-145) mmol/L Potassium 4.4 (3.5-5.1) mmol/L Chloride 105 (98-107) mmol/L Carbon Dioxide 28 (21-32) mmol/L Anion Gap 6.0 (3-11) BUN 26 H (7-18) mg/dl Creatinine 1.21 H (0.6-1.2) mg/dl Est Cr Clr Drug Dosing 38.9 ml/min Est GFR ( Amer) 47.6 Est GFR (Non-Af Amer) 41.1 BUN/Creatinine Ratio 21.5 H (10-20) Glucose 240 H (70-99) mg/dl POC Glucose 236 H (70-99) Calcium 9.2 (8.5-10.1) mg/dl Magnesium 2.0 (1.8-2.4) mg/dl Total Bilirubin 2.4 H D (0.2-1) mg/dl Direct Bilirubin 2.0 H (0-0.2) mg/dl AST 519 H (15-37) U/L ALT 49 (12-78) U/L Alkaline Phosphatase 613 H (45-117) U/L Total Protein 7.0 (6.4-8.2) gm/dl Albumin 2.8 L (3.4-5.0) gm/dl Globulin (2.5-4.0) gm/dl Albumin/Globulin Ratio (0.9-2) Lipase (73-393) U/L Urine Color Urine Appearance (Clear) Urine pH (4.5-7.5) Ur Specific [place] (1.000-1.030) Urine Protein (Negative) Urine Glucose (UA) (Negative) Urine Ketones (Negative) Urine Blood (Negative) Urine Nitrite (Negative) Urine Bilirubin (Negative) Urine Urobilinogen (Negative) Ur Leukocyte Esterase (Negative) Urine WBC (Auto) (0-5) /hpf Urine RBC (Auto) (0-4) /hpf U Hyaline Cast (Auto) (0-5) /lpf U Epithel Cells (Auto) (0-5) /lpf Urine Bacteria (Auto) (Negative) 06/12/18 06/12/18 06/12/18 Range/Units 12:05 16:22 17:19 WBC (4.8-10.8) K/uL RBC (4.2-5.4) M/uL Hgb 10.0 L (12.0-16.0) g/dL Hct 31.3 L (37-47) % MCV (80-100) fL MCH (25-34) pg MCHC (32-36) g/dL RDW Std Deviation (36.4-46.3) fL RDW Coeff of Cha (11.5-14.5) % Plt Count (130-400) K/uL MPV (7.4-10.4) fL Immature Gran % (Auto) % Neut % (Auto) % Lymph % (Auto) % [place] % (Auto) % Eos % (Auto) % Baso % (Auto) % Immature Gran # (Auto) (0.00-0.02) K/uL Neut # (Auto) (1.4-6.5) K/uL Lymph # (Auto) (1.2-3.4) K/uL [place] # (Auto) (0.11-0.59) K/uL Eos # (Auto) (0-0.5) K/uL Baso # (Auto) (0-0.2) K/uL Giant Platelets PT (9.0-12.0) Seconds INR (0.9-1.1) Sodium (136-145) mmol/L Potassium (3.5-5.1) mmol/L Chloride (98-107) mmol/L Carbon Dioxide (21-32) mmol/L Anion Gap (3-11) BUN (7-18) mg/dl Creatinine (0.6-1.2) mg/dl Est Cr Clr Drug Dosing ml/min Est GFR ( Amer) Est GFR (Non-Af Amer) BUN/Creatinine Ratio (10-20) Glucose (70-99) mg/dl POC Glucose 223 H 220 H (70-99) Calcium (8.5-10.1) mg/dl Magnesium (1.8-2.4) mg/dl Total Bilirubin (0.2-1) mg/dl Direct Bilirubin (0-0.2) mg/dl AST (15-37) U/L ALT (12-78) U/L Alkaline Phosphatase (45-117) U/L Total Protein (6.4-8.2) gm/dl Albumin (3.4-5.0) gm/dl Globulin (2.5-4.0) gm/dl Albumin/Globulin Ratio (0.9-2) Lipase (73-393) U/L Urine Color Urine Appearance (Clear) Urine pH (4.5-7.5) Ur Specific [place] (1.000-1.030) Urine Protein (Negative) Urine Glucose (UA) (Negative) Urine Ketones (Negative) Urine Blood (Negative) Urine Nitrite (Negative) Urine Bilirubin (Negative) Urine Urobilinogen (Negative) Ur Leukocyte Esterase (Negative) Urine WBC (Auto) (0-5) /hpf Urine RBC (Auto) (0-4) /hpf U Hyaline Cast (Auto) (0-5) /lpf U Epithel Cells (Auto) (0-5) /lpf Urine Bacteria (Auto) (Negative) 06/12/18 06/12/18 06/12/18 Range/Units 17:22 18:48 20:00 WBC (4.8-10.8) K/uL RBC (4.2-5.4) M/uL Hgb (12.0-16.0) g/dL Hct (37-47) % MCV (80-100) fL MCH (25-34) pg MCHC (32-36) g/dL RDW Std Deviation (36.4-46.3) fL RDW Coeff of Cha (11.5-14.5) % Plt Count (130-400) K/uL MPV (7.4-10.4) fL Immature Gran % (Auto) % Neut % (Auto) % Lymph % (Auto) % [place] % (Auto) % Eos % (Auto) % Baso % (Auto) % Immature Gran # (Auto) (0.00-0.02) K/uL Neut # (Auto) (1.4-6.5) K/uL Lymph # (Auto) (1.2-3.4) K/uL [place] # (Auto) (0.11-0.59) K/uL Eos # (Auto) (0-0.5) K/uL Baso # (Auto) (0-0.2) K/uL Giant Platelets PT (9.0-12.0) Seconds INR (0.9-1.1) Sodium (136-145) mmol/L Potassium (3.5-5.1) mmol/L Chloride (98-107) mmol/L Carbon Dioxide (21-32) mmol/L Anion Gap (3-11) BUN (7-18) mg/dl Creatinine (0.6-1.2) mg/dl Est Cr Clr Drug Dosing ml/min Est GFR ( Amer) Est GFR (Non-Af Amer) BUN/Creatinine Ratio (10-20) Glucose (70-99) mg/dl POC Glucose 173 H 133 H 161 H (70-99) Calcium (8.5-10.1) mg/dl Magnesium (1.8-2.4) mg/dl Total Bilirubin (0.2-1) mg/dl Direct Bilirubin (0-0.2) mg/dl AST (15-37) U/L ALT (12-78) U/L Alkaline Phosphatase (45-117) U/L Total Protein (6.4-8.2) gm/dl Albumin (3.4-5.0) gm/dl Globulin (2.5-4.0) gm/dl Albumin/Globulin Ratio (0.9-2) Lipase (73-393) U/L Urine Color Urine Appearance (Clear) Urine pH (4.5-7.5) Ur Specific [place] (1.000-1.030) Urine Protein (Negative) Urine Glucose (UA) (Negative) Urine Ketones (Negative) Urine Blood (Negative) Urine Nitrite (Negative) Urine Bilirubin (Negative) Urine Urobilinogen (Negative) Ur Leukocyte Esterase (Negative) Urine WBC (Auto) (0-5) /hpf Urine RBC (Auto) (0-4) /hpf U Hyaline Cast (Auto) (0-5) /lpf U Epithel Cells (Auto) (0-5) /lpf Urine Bacteria (Auto) (Negative) Imaging Data Radiologist's Impression: Radiology results as stated below per my review and the radiologist's interpretation: XR chest 1V portable CLINICAL HISTORY: CP, RUQ pain pain COMPARISON STUDY: 08/15/2016 FINDINGS: The bones soft tissues and hemidiaphragms are normal. The cardiomediastinal silhouette is normal. The lungs are clear. The pulmonary vasculature is normal. IMPRESSION: Negative chest. The above report was generated using voice recognition software. It may contain grammatical, syntax or spelling errors. Electronically signed by: Alex Coughlin M.D. 06/11/2018 11:17 AM US gallbladder HISTORY: 82 years-old Female RUQ pain acute right upper quadrant abdominal pain COMPARISON: Renal ultrasound 08/08/2016, CT 02/16/2016 TECHNIQUE: Multiple real-time sonographic images of the abdominal right upper quadrant were obtained assessing grayscale appearance and color flow FINDINGS: The pancreas is suboptimally visualized. The visualized pancreatic head appears heterogeneous and atrophic. The common bile duct is mildly dilated at 1.3 cm which appears unchanged from comparison. Prior cholecystectomy. Heterogeneous appearance of the liver, notably the right hepatic lobe is heterogeneous. The p reviously described fibrosis or mass of the right hepatic lobe is not definitively seen. Suggestion of mild marginal nodularity of the liver. No ascites. The imaged right kidney demonstrates diffuse cortical thinning without hydronephrosis. IMPRESSION: 1. Prior cholecystectomy with unchanged likely postsurgical dilation of the common bile duct. 2. Heterogeneous appearance of the liver redemonstrated with suggestion of fibrotic changes/cirrhosis without ascites identified. Correlate with LFTs. 3. The previously described fibrosis versus mass of the right hepatic lobe seen on CT from 02/16/2016 is not definitively seen. The above report was generated using voice recognition software. It may contain grammatical, syntax or spelling errors. Electronically signed by: Marito Grimes M.D. 06/11/2018 1:[address] abd pelvis IV con only CLINICAL HISTORY: epigastric pain, elevated liver enzymes COMPARISON STUDY: CT scan dated 02/16/2016 biliary ultrasound dated 06/11/2018 TECHNIQUE: The patient was scanned in a dynamic helical fashion during intravenous administration of 94 cc of Optiray 320. A dose lowering technique was utilized adhering to the principles of ALARA. CT DOSE: 1316.45 mGy.cm FINDINGS: Lower chest: There are basilar atelectatic changes present. Liver: The liver has a cirrhotic morphology. There is mild intrahepatic biliary ductal dilatation. There is a 2 cm exophytic nodule arising from the anterior aspect of the right lobe. The common bile duct is dilated and of increased density. There is mild infiltration around the common hepatic duct. The findings are consistent with either extensive cholangitis, stone filled duct, or cholangiocarcinoma. ERCP is recommended in follow-up. Gallbladder: Surgically absent Spleen: Normal in size and attenuation. Pancreas: The pancreas is mildly atrophic. There is borderline ductal dilatation. 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 Kidneys: No solid renal masses are visualized. There is bilateral uroepithelial thickening. Bowel: There are no transition zones indicate bowel obstruction. There is no evidence of acute diverticulitis. There is a sigmoid anastomotic suture line. Peritoneum: There is no intraperitoneal free air or abdominal ascites. There is a small fat-containing umbilical hernia. Vasculature: The abdominal aorta is normal in course and caliber. Adenopathy: None. Pelvic viscera: The bladder, and pelvic viscera are unremarkable. Skeletal structures: No destructive osseous lesions are seen. IMPRESSION: 1. Cirrhotic morphology of the liver 2. Intrahepatic biliary ductal dilatation 3. Interval development of a 2 cm exophytic mass arising from the right lobe of the liver 4. Markedly abnormal common hepatic and common bile duct which is dilated and of increased density. In addition there is periductal stranding. Likely diagnostic considerations include extensive cholangitis, stone filled duct, or cholangiocarcinoma. An ERCP is recommended in follow-up. 5. Bilateral uroepithelial thickening. 6. 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 06/11/2018 2:51 PM Dictated: 06/11/18 1435 Transcribed: 06/11/18 1435 ECG Data Attestation: I personally reviewed and interpreted this ECG as follows: Indication: chest pain Rate (beats per minute): 73 Rhythm: normal sinus Findings: + RBBB; no acute ischemic change and no ectopy Blood Pressure Blood Pressure Findings: Elevated blood pressure MDM Narrative This pt was evaluated and appeared to be in no distress. Pt was tender is RUQ, states pain began just this am upon awakening. She did not think she had a cholecystectomy in the past, no obvious surgical scars were visualized. US RUQ was performed. This study revealed a post-brenda state and fibrotic change. As LFTs are elevated, CT abd pelvis was ordered. PT was given IV solumedral and benadryl prior to CT IV contrast d/t h/o allergy. This study is read as above, with evidence of a 2cm mass off R lobe of the liver and changes c/w choleangitis. Findings were d/w the pt's children. She apparently had "a little mass burned off several years ago at [facility]." Gastroenterology was consulted. Details of this history are unclear, but records from [facility] were requested. Pt has been given IV ceftriaxone for + UA prior to CT imaging, and then zosyn was added for possibility of choleangitis. [facility] hospitalist was consulted for further management. Impression & Plan Liver mass, Cholangitis Discharge Plan Visit Data *Final* Discharge Date/Time: 06/11/18 19:20 Chief Complaint: Chest Pain Stated Complaint: chest pain ED Provider: Joanne Tong Discharge Problem: Liver mass, Cholangitis Patient Disposition: Admitted As Inpatient Condition: Critical Discharge Instructions Interventions: ED Discharge Assessment Last Done: 06/11/18 19:20 The scribe's documentation has been prepared under my direction and personally reviewed by me in its entirety. I confirm that the note above accurately re flects all work, treatment, procedures, and medical decision making performed by me.
--- NOTE | 2018-06-11 16:41 | Gastrointestinal Consultation ---
Date of Consultation June 11, 2018 Assessment & Plan (1) Elevated LFTs: (2) Cirrhosis: (3) Liver mass: (4) RUQ abdominal pain: Pt is a 82 y/o female w PMHx of colon ca s/p resection, cirrhosis, HCC s/p ? TACE in 2011 at [facility]; who presented to ED w c/o RUQ abd pain w/o fever, chills, n/v. On eval has mild leukocytosis and elevated LFTs. CT imaging studies showe cirrhotic liver w 2cm liver mass and dilated common bile, intrahepatic ducts w periductal stranding concerning for possible cholangitis, choledocholithiasis or cholangiocarcinoma - Obtain records from [facility] and Dr. San ([place] [facility]) - Keep NPO after midnight please - MRCP today - Hold ASA and Plavix for possible ERCP tomorrow. - IVF hydration - Broad spectrum IV antibx. - Trend LFTs Supervising Physician Co-Signing Physician Notes Case discussed, I agree with impression and plan. History of Present Illness Reason for Consultation: Abd pain, possible cholangitis noted on CT scan. Requesting Physician: Dr. Joanne Tong Attending Physician: Dr. Miguelito Connor History of Present Illness Pt is a 82 y/o female who was brought into ED by daughter Gilberto w c/o RUQ abd pain starting this AM. She denies associated fever, chills, CP, SOB, n/v, + constipation on daily Miralax. PMHx of CAD s/p cardiac stent placements on Plavix, ASA, GERD, HTN, DM II, Parkinson's, UTI on suppressive Doxycycline, Afib, s/p cholecystectomy, s/p partial colon resection for colon ca. She is also cirrhotic, liver tumor s/p ? TACE at [facility] in 2011. She is followed by Dr. Hussein San (GI) at [place]. Never needed chemo or radiation for her liver tumor. Upon evaluation noted to have mild leukocytosis, WBC 10.9. Low lipase 72. LFTs up: Tbili 1.1, AST 316, ALT 88, AP 413. CT abd/pelvis showed cirrhotic liver, intrahepatic biliary ductal , common hepatic and common bile ducts dilatation w periductal stranding, 2 cm exophytic mass arising from the right lobe of the liver, possible IPMNs on pancreas. Allergies Allergy/AdvReac Type Severity Reaction Status Date / Time Iodinated Contrast- Oral and Allergy Intermediate IV Verified 06/11/18 13:28 IV Dye CONTRAST- HIVES mivacurium Allergy Mild dizzy, Verified 06/11/18 13:28 nauseous (per patient) Bactrim Allergy Unknown patient Verified 09/21/16 05:17 unsure Cipro Allergy Unknown unknown Verified 09/21/16 05:17 ciprofloxacin Allergy Unknown unknown Verified 06/11/18 13:28 nitrofurantoin Allergy Unknown unknown Verified 06/11/18 13:28 sulfamethoxazole Allergy Unknown patient Verified 06/11/18 13:28 unsure trimethoprim Allergy Unknown patient Verified 06/11/18 13:28 unsure acarbose AdvReac Mild GI SYMPTOMS Verified 06/11/18 13:28 insulin glargine AdvReac Mild "Very ill" Verified 06/11/18 18:24 [From Lantus U-100 Insulin] - see comments metformin AdvReac Mild GI SYMPTOMS Verified 06/11/18 13:28 Penicillins AdvReac Mild dizzy, Verified 06/11/18 13:28 nausous (per patient) tolerated zosyn [id number] troglitazone AdvReac Mild GI SYMPTOMS Verified 06/11/18 13:28 Home Medications Home Medications Medication Instructions Recorded Confirmed Type ascorbic acid (vitamin C) 500 mg PO DAILY 06/11/18 06/11/18 History aspirin [Aspirin Low Dose] 81 mg PO DAILY 06/11/18 06/11/18 History atorvastatin 40 mg PO DAILY 06/11/18 06/11/18 History carbidopa-levodopa [Sinemet CR] 2 tab PO TID 06/11/18 06/11/18 History carvedilol 6.25 mg PO BID 06/11/18 06/11/18 History clopidogrel 75 mg PO DAILY 06/11/18 06/11/18 History dextromethorphan-guaifenesin 1 cap PO QID PRN 06/11/18 06/11/18 History [Coricidin HBP] docusate sodium 100 mg PO BID 06/11/18 06/11/18 History doxycycline hyclate [Vibramycin] 100 mg PO DAILY 06/11/18 06/11/18 History ferrous sulfate 325 mg PO DAILY 06/11/18 06/11/18 History folic acid 1 mg PO DAILY 06/11/18 06/11/18 History insulin aspart (niacinamide) 0 unit SUBCUT TID 06/11/18 06/11/18 History [Fiasp FlexTouch U-100 Insulin] insulin aspart (niacinamide) 6 unit SUBCUT TID 06/11/18 06/11/18 History [Fiasp FlexTouch U-100 Insulin] insulin degludec [Tresiba 36 unit SUBCUT QAM 06/11/18 06/11/18 History FlexTouch U-200] magnesium oxide 400 mg PO DAILY 06/11/18 06/11/18 History nitroglycerin See Rx Instructions .ROUTE .COMPLEX 06/11/18 06/11/18 History oxycodone 5 mg PO Q6 PRN 06/11/18 06/11/18 History oxycodone [OxyContin] 20 mg PO Q12H 06/11/18 06/11/18 History pantoprazole 40 mg PO DAILY 06/11/18 06/11/18 History pentoxifylline 400 mg PO TID 06/11/18 06/11/18 History polyethylene glycol 3350 [GlycoLax] 17 g PO DAILY 06/11/18 06/11/18 History pregabalin [Lyrica] 50 mg PO TID 06/11/18 06/11/18 History prochlorperazine maleate 10 mg PO TID PRN 06/11/18 06/11/18 History sucralfate 1 g PO QID 06/11/18 06/11/18 History trazodone 50 mg PO BID 06/11/18 06/11/18 History venlafaxine 37.5 mg PO DAILY 06/11/18 06/11/18 History Patient History Medical History Coronary artery disease (Chronic) "s/p PCI ? [place]" Hypertension (Chronic) GERD (gastroesophageal reflux disease) (Chronic) Diabetes mellitus, type 2 (Chronic) Diabetic neuropathy (Chronic) Parkinson's disease (Chronic) Recurrent urinary tract infection (Chronic) Chronic pain syndrome (Chronic) "arthritis + neuropathy" Atrial fibrillation (Chronic) "per old records" Surgical History Status post cardiac catheterization (Chronic) Status post coronary artery stent placement (Chronic) Status post cholecystectomy (Chronic) Social History Preferred Language: Mauritian Communication Ability: Effective Continuous Improvement Consultant Required: No Beliefs That Will Affect Care: None Current Living Situation: Family Current Living Situation Comment: Patient drowsy/ unable to answer at this time Feels Safe at Home: Yes Smoking Status: Unknown if ever smoked Physical Exam 2 Constitutional: WD/WN, vitals as above well groomed, cooperative and comfortable Eyes: PERRL, conjunctivae normal, anicteric sclerae ENMT: external ear and nose normal, oropharynx normal Respiratory: normal respiratory effort, lungs clear to auscultation Cardiovascular: RRR, no murmur, no edema Gastrointestinal (Abdomen): Inspection/Auscultation: + hypoactive bowel sounds Percussion/Palpation: + abdomen tender (ruq ) and abdomen soft Skin: no rashes, warm and dry no jaundice Neurologic: Motor/Sensory: no asterixis Psychiatric: A+Ox3, euthymic affect Lymphatic: no lymphedema Results & Data Vital Signs (Past 12 Hours) Vital Signs Pulse Pulse Resp BP BP Pulse Ox 06/11/18 16:16 82 18 144/68 H 97 06/11/18 15:32 82 20 167/80 H 97 06/11/18 14:39 80 12 217/100 H 96 06/11/18 14:09 87 14 198/100 H 96 06/11/18 13:21 86 18 192/76 H 97 06/11/18 12:27 78 12 148/69 H 98 06/11/18 10:54 91 H 21 147/72 H 93 Laboratory Results Laboratory Results - last 24 hr 06/11/18 06/11/18 06/11/18 10:53 10:53 12:30 WBC 10.90 H RBC 4.36 Hgb 11.4 L Hct 37.2 MCV 85.3 MCH 26.1 MCHC 30.6 L RDW Std Deviation 55.8 H RDW Coeff of Cha 17.9 H Plt Count 134 MPV 12.3 H Immature Gran % (Auto) 0.4 Neut % (Auto) 86.1 Lymph % (Auto) 7.2 [place] % (Auto) 5.4 Eos % (Auto) 0.7 Baso % (Auto) 0.2 Immature Gran # (Auto) 0.04 H Neut # (Auto) 9.39 H Lymph # (Auto) 0.78 L [place] # (Auto) 0.59 Eos # (Auto) 0.08 Baso # (Auto) 0.02 Sodium 138 Potassium 4.0 Chloride 102 Carbon Dioxide 31 Anion Gap 5.0 BUN 24 H Creatinine 1.06 Est Cr Clr Drug Dosing 45.3 Est GFR ( Amer) 55.8 Est GFR (Non-Af Amer) 48.2 BUN/Creatinine Ratio 22.7 H Glucose 183 H Calcium 9.2 Total Bilirubin 1.1 H AST 316 H ALT 88 H Alkaline Phosphatase 413 H Total Protein 7.5 Albumin 3.2 L Globulin 4.3 H Albumin/Globulin Ratio 0.8 L Lipase 72 L Urine Color Yellow Urine Appearance Turbid A Urine pH 6.5 Ur Specific [place] 1.017 Urine Protein 1+ H Urine Glucose (UA) Negative Urine Ketones Negative Urine Blood 2+ H Urine Nitrite Positive A Urine Bilirubin Negative Urine Urobilinogen Negative Ur Leukocyte Esterase 3+ H Urine WBC (Auto) >30 H Urine RBC (Auto) 10-30 H U Hyaline Cast (Auto) 1-5 U Epithel Cells (Auto) 0-5 Urine Bacteria (Auto) 3+ H
--- NOTE | 2018-06-11 17:40 | History & Physical Report ---
Date of Service June 11, 2018 Assessment & Plan (1) RUQ abdominal pain: 82 y/o F with an extensive medical history including colon CA with liver mets post TACE procedure, cirrhosis, HTN, CAD, DM II, Parkinson's, chronic arthritic pain, PAF, obesity. Presents with progressive RUQ pain. Denies nausea, vomiting or fevers. Initial labs were notable for elevated LFTs. A CT of the abdomen demonstrated the following: Interval development of a 2 cm exophytic mass arising from the right lobe of the liver, abnormal common hepatic and common bile duct which is dilated and of increased density, periductal stranding. Diagnostic considerations include extensive cholangitis, stone filled duct, or cholangiocarcinoma. An ERCP is recommended in follow-up. 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 An MRCP is pending. The pt was seen by GI in the ER prior to admission. 1) Liver mass -LFT elevation - possible obstruction due to recurrence of malignancy, possible cholangitis. The pt will proceed to MRCP. We will keep her NPO aside from essential meds as she may need ERCP if there is obstruction which is amenable to intervention. We have placed her on IV Zosyn until cholangitis is ruled out. IV narcotics and antiemetics as needed. Additional recommendation will follow from GI pending results of the MRCP. I have discussed the results of the CT with the pt's daughter and pt. 2) CAD - no evidence of ACS - EKG - NSR, RBBB, no change 3) DM II - placed on a SS only while NPO - states she had an adverse reaction to Lantus 4) Parkinson's - cont Sinemet 5) PAF - sinus on admission - she is not on anticoagulation normally 6) Chronic UTIs - suppression with Doxy but this should be covered by Zosyn at present 7) Anemia is at baseline 8) Chronic pain - cont long-acting narcotics - supplemented with IV for RUQ pain Full code confirmed this admission - SCDs as may need procedure Total time for this admit including review of labs, meds, imaging, records - discussion with pt, daughter and ER attending - 46 min Present on Admission?: Yes History of Present Illness Chief Complaint: RUQ abdominal pain Primary Care Provider: Krishna Villanueva 82 y/o F with an extensive medical history including colon CA with liver mets post TACE procedure, cirrhosis, HTN, CAD, DM II, Parkinson's, chronic arthritic pain, PAF, obesity. Presents with progressive RUQ pain. Denies nausea, vomiting or fevers. Initial labs were notable for elevated LFTs. A CT of the abdomen demonstrated the following: Interval development of a 2 cm exophytic mass arising from the right lobe of the liver, abnormal common hepatic and common bile duct which is dilated and of increased density, periductal stranding. Diagnostic considerations include extensive cholangitis, stone filled duct, or cholangiocarcinoma. An ERCP is recommended in follow-up. 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 An MRCP is pending. The pt was seen by GI in the ER prior to admission. PMH: 1) Colon CA with liver mets - CA was resected and treated with resection/chemo/radiation. Liver mets were treated with a TACE procedue at [place] 12/2013 2) HTN 3) Parkinson's 4) Chronic UTIs 5) CAD - [place] and total of 6 stents placed - last 2011 - follows with cardiology at [place] 6) PAF 7) Chronic arthritic pain - narcotic dependence 8) Cirrhosis of liver 9) DM II 10) Depression 11) RBBB 11) Iron-deficient anemia 12) HLD Surgical: 1) Cholecytectomy 2) Resection of colon CA 2001 2) TACE for liver mets - 2013 3) 6 cardiac stents Social: Does not drink or smoke - lives with daughter Family: Mother due to complications of DM Father due to silicosis from years working in a [employer] Allergies Allergy/AdvReac Type Severity Reaction Status Date / Time Iodinated Contrast- Oral and Allergy Intermediate IV Verified 06/11/18 13:28 IV Dye CONTRAST- HIVES mivacurium Allergy Mild dizzy, Verified 06/11/18 13:28 nauseous (per patient) Bactrim Allergy Unknown patient Verified 09/21/16 05:17 unsure Cipro Allergy Unknown unknown Verified 09/21/16 05:17 ciprofloxacin Allergy Unknown unknown Verified 06/11/18 13:28 nitrofurantoin Allergy Unknown unknown Verified 06/11/18 13:28 sulfamethoxazole Allergy Unknown patient Verified 06/11/18 13:28 unsure trimethoprim Allergy Unknown patient Verified 06/11/18 13:28 unsure acarbose AdvReac Mild GI SYMPTOMS Verified 06/11/18 13:28 insulin glargine AdvReac Mild "Very ill" Verified 06/11/18 18:24 [From Lantus U-100 Insulin] - see comments metformin AdvReac Mild GI SYMPTOMS Verified 06/11/18 13:28 Penicillins AdvReac Mild dizzy, Verified 06/11/18 13:28 nausous (per patient) tolerated zosyn [id number] troglitazone AdvReac Mild GI SYMPTOMS Verified 06/11/18 13:28 Home Medications Home Medications Medication Instructions Recorded Confirmed Type ascorbic acid (vitamin C) 500 mg PO DAILY 06/11/18 06/11/18 History aspirin [Aspirin Low Dose] 81 mg PO DAILY 06/11/18 06/11/18 History atorvastatin 40 mg PO DAILY 06/11/18 06/11/18 History carbidopa-levodopa [Sinemet CR] 2 tab PO TID 06/11/18 06/11/18 History carvedilol 6.25 mg PO BID 06/11/18 06/11/18 History clopidogrel 75 mg PO DAILY 06/11/18 06/11/18 History dextromethorphan-guaifenesin 1 cap PO QID PRN 06/11/18 06/11/18 History [Coricidin HBP] docusate sodium 100 mg PO BID 06/11/18 06/11/18 History doxycycline hyclate [Vibramycin] 100 mg PO DAILY 06/11/18 06/11/18 History ferrous sulfate 325 mg PO DAILY 06/11/18 06/11/18 History folic acid 1 mg PO DAILY 06/11/18 06/11/18 History insulin aspart (niacinamide) 6 unit SUBCUT TID 06/11/18 06/11/18 History [Fiasp FlexTouch U-100 Insulin] insulin degludec [Tresiba 36 unit SUBCUT QAM 06/11/18 06/11/18 History FlexTouch U-200] magnesium oxide 400 mg PO DAILY 06/11/18 06/11/18 History nitroglycerin See Rx Instructions .ROUTE .COMPLEX 06/11/18 06/11/18 History oxycodone 5 mg PO Q6 PRN 06/11/18 06/11/18 History oxycodone [OxyContin] 20 mg PO Q12H 06/11/18 06/11/18 History pantoprazole 40 mg PO DAILY 06/11/18 06/11/18 History pentoxifylline 400 mg PO TID 06/11/18 06/11/18 History polyethylene glycol 3350 [GlycoLax] 17 g PO DAILY 06/11/18 06/11/18 History pregabalin [Lyrica] 50 mg PO TID 06/11/18 06/11/18 History prochlorperazine maleate 10 mg PO TID PRN 06/11/18 06/11/18 History sucralfate 1 g PO QID 06/11/18 06/11/18 History trazodone 50 mg PO BID 06/11/18 06/11/18 History venlafaxine 37.5 mg PO DAILY 06/11/18 06/11/18 History Past Med/Surg History Medical History Coronary artery disease (Chronic) "s/p PCI ? [place]" Hypertension (Chronic) GERD (gastroesophageal reflux disease) (Chronic) Diabetes mellitus, type 2 (Chronic) Diabetic neuropathy (Chronic) Parkinson's disease (Chronic) Recurrent urinary tract infection (Chronic) Chronic pain syndrome (Chronic) "arthritis + neuropathy" Atrial fibrillation (Chronic) "per old records" Surgical History Status post cardiac catheterization (Chronic) Status post coronary artery stent placement (Chronic) Status post cholecystectomy (Chronic) Social History Preferred Language: Belgian Current Living Situation: Family Feels Safe at Home: Yes Smoking Status: Never smoker Review of Systems Review of Systems: Gen: Denies fevers, night sweats, rigors, fatigue, malaise, weight loss/gain ENT: Denies congestion, throat pain, hearing loss Eyes: Denies acute visual changes CV: Denies CP, palpitations Pulmonary: Denies SOB, cough, wheezing GI: Denies N/V, diarrhea, constipation - RUQ pain as described Neuro: Denies acute or unilateral weakness, acute gait impairment, headache or acute visual changes Musculoskeletal: Chronic, diffuse musculoskeletal pain Endocrine: Denies polydipsia, polyuria Skin: Denies acute rashes or ulcers Physical Exam Physical Exam: General: Lethargic, elderly female, AAO x 3, no distress ENT: No erythema or exudates, no thrush Eyes: ARACELI, EOMI Head and neck: Normocephalic, atraumatic - cannot assess JVD due to habitus Chest/heart: Nontender, S1,2, RRR, no murmurs, no gallops Lungs: CTAB, no wheezing or crackles Abdomen: There is upper abdominal tnderness - a central firm area likely represents either scarring or a hernia and is nontender Neuro: AAO x 3, speech is clear, no unilateral weakness or loss of sensation, coordination intact Musculoskeletal: No joint inflammation, muscle tenderness, FROM Skin: No acute rashes or ulcers Extremities: No clubbing, cyanosis, minimal edema Results & Data Vital Signs (Past 12 Hours) Vital Signs Pulse Pulse Resp BP BP Pulse Ox 06/11/18 16:16 82 18 144/68 H 97 06/11/18 15:32 82 20 167/80 H 97 06/11/18 14:39 80 12 217/100 H 96 06/11/18 14:09 87 14 198/100 H 96 06/11/18 13:21 86 18 192/76 H 97 06/11/18 12:27 78 12 148/69 H 98 06/11/18 10:54 91 H 21 147/72 H [address] abdomen: 1. Cirrhotic morphology of the liver 2. Intrahepatic biliary ductal dilatation 3. Interval development of a 2 cm exophytic mass arising from the right lobe of the liver 4. Markedly abnormal common hepatic and common bile duct which is dilated and of increased density. In addition there is periductal stranding. Likely diagnostic considerations include extensive cholangitis, stone filled duct, or cholangiocarcinoma. An ERCP is recommended in follow-up. 5. Bilateral uroepithelial thickening. 6. 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
[2018-06-11 18:01] LABS: Prothrombin Time 10.4 Seconds (9.0-12.0)
[2018-06-11] MEDS ORDERED: LORazepam 2 MG/4 ML VIAL ONE (18:51)
--- NOTE | 2018-06-11 20:01 | Magnetic Resonance Report ---
MRCP CLINICAL HISTORY: r/o choledocholithiasis, cholangitis COMPARISON STUDY: CT abdomen and pelvis and right upper quadrant ultrasound June 11, 2018. TECHNIQUE: Utilizing a 1.5 Marybeth magnet, multiplanar, multi echo imaging of the abdomen was performed without intravenous contrast. FINDINGS: There is mild nodularity of the liver surface which suggests cirrhosis. Note is made of a s egment 5 hepatic mass which measures approximately 6.5 x 4.3 x 4.1 cm. This mass is suboptimally asse ssed on this unenhanced exam. There is associated biliary ductal dilatation. A 7 mm right hepatic lob e cyst is also noted. There is moderate dilatation of the common bile duct which measures 1.2 cm in c aliber. The common bile duct appears distended and filled with soft tissue. No T2 hyperintense foci a re identified to suggest choledocholithiasis. The common hepatic duct is also distended and likely co ntains soft tissue. The gallbladder surgically absent. There is mild dilatation of the main pancreati c duct. 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 Note is made of a few prominent peripancreatic lymph nodes that measure up to 1.3 x 1.1 cm. There is mild jose angel ateral hydroureteronephrosis. IMPRESSION: 1. Segment 5 hepatic mass that measures approximately 6.5 x 4.3 x 4.1 cm. Associated intrahepatic jose angel iary ductal dilatation. This is consistent with a neoplasm and cholangiocarcinoma is favored. 2. Distended common hepatic and common bile ducts which likely contain soft tissue. This also favors a neoplasm and may reflect cholangiocarcinoma. Cholangitis could appear similar. 3. Mildly enlarged peripancreatic lymph nodes which raise the possibility of aries spread of disease. 4. Probable cirrhosis. 5. Mild bilateral hydroureteronephrosis. Electronically signed by: Fortino Pinzon M.D. 06/11/2018 7:59 PM
[2018-06-11] MEDS ORDERED: NITROGLYCERIN SL 0.4 MG/TAB TAB SL PRN (20:04)
[2018-06-11] MEDS ORDERED: LORazepam 1 MG/2 ML VIAL IV PRN (20:04)
[2018-06-11] MEDS ORDERED: HYDROmorphone INJ 0.5 MG/0.5 ML SYR IV PRN (20:04)
[2018-06-11] MEDS ORDERED: ONDANSETRON INJ 2 MG/ML 2 ML VIAL IV PRN (20:04)
[2018-06-11] MEDS ORDERED: INSULIN ASPART 100 UNITS/ML 3 ML PEN SC SCH (21:00)
[2018-06-11] MEDS: PIPERACILLIN/TAZOBACTAM 3.375 GM in DEXTROSE 5% 100 ML IV SCH (21:30)
[2018-06-11] MEDS: PENTOXIFYLLINE 400MG EXT REL TAB PO SCH (21:33)
[2018-06-11] MEDS: PREGABALIN 50 MG CAP PO SCH (21:33)
[2018-06-11] MEDS: OXYCODONE HCL 20 MG TABCR (OXYCONTIN) PO SCH (21:33)
[2018-06-11] MEDS: DOCUSATE SODIUM 100 MG CAP PO SCH (21:34)
[2018-06-11] MEDS: TRAZODONE HCL 50 MG TAB PO SCH (21:34)
[2018-06-11] MEDS: CARBIDOPA/LEVODOPA 50/200MG EXT REL TAB PO SCH (21:34)
[2018-06-11] MEDS: CARVEDILOL 6.25 MG TAB PO SCH (21:34)
[2018-06-11] MEDS: DOXYCYCLINE HYCLATE 100 MG CAP PO SCH (21:34)
[2018-06-11] MEDS ORDERED: Nursing to Pharmacy Communication ONE (22:22)
[2018-06-12] MEDS: INSULIN ASPART 100 UNITS/ML 3 ML PEN SC SCH ×5 (00:17→20:03)
[2018-06-12] MEDS: PIPERACILLIN/TAZOBACTAM 3.375 GM in DEXTROSE 5% 100 ML IV SCH ×2 (05:32→13:53)
[2018-06-12] MEDS ORDERED: PNEUMOCOCCAL POLYSACCHARIDES 25 MCG/0.5 ML VIAL/SYR IM ONE (06:00)
[2018-06-12] MEDS ORDERED: PNEUMOCOCCAL ADMINISTRATION CHARGE ONE (06:00)
[2018-06-12] MEDS ORDERED: INDOMETHACIN 50 MG SUPP PR ONE (08:16)
[2018-06-12 08:21] LABS: Mean Corpuscular Hgb Conc 30.7 g/dL (32-36)
[2018-06-12 08:36] LABS: Albumin Level 2.8 gm/dl (3.4-5.0); BUN Creatinine Ratio 21.5 (10-20); Calcium 9.2 mg/dl (8.5-10.1); Creatinine Clr Calc Pharmacy 38.9 ml/min; Est GFR (African American) 47.6; Est GFR (Non-African American) 41.1; Potassium 4.4 mmol/L (3.5-5.1)
[2018-06-12 08:37] LABS: Eosinophils # (auto) 0.01 K/uL (0-0.5); Eosinophils % (auto) 0.2 %; Giant Platelets 1+; Hematocrit (blood only) 35.2 % (37-47); Hemoglobin 10.8 g/dL (12.0-16.0); Immature Granulocytes # (auto) 0.01 K/uL (0.00-0.02); Immature Granulocytes % (auto) 0.2 %; Lymphocytes % (auto) 12.8 %; Mean Corpuscular Volume 84.6 fL (80-100); Mean Platelet Volume 12.1 fL (7.4-10.4); Monocytes # (auto) 0.23 K/uL (0.11-0.59); Monocytes % (auto) 4.9 %; Neutrophils # (auto) 3.83 K/uL (1.4-6.5); Neutrophils % (auto) 81.9 %; Platelet Count 107 K/uL (130-400); RDW Coefficient of Variation 17.6 % (11.5-14.5); RDW Standard Deviation 54.7 fL (36.4-46.3); Red Blood Count 4.16 M/uL (4.2-5.4); White Blood Count 4.68 K/uL (4.8-10.8)
[2018-06-12 08:40] LABS: Bilirubin,Total 2.4 mg/dl (0.2-1)
[2018-06-12] MEDS ORDERED: SODIUM CHLORIDE 0.9% 250 ML IV PRN (08:46)
[2018-06-12] MEDS ORDERED: INSULIN ASPART 100 UNITS/ML 3 ML PEN SC SCH (08:49)
[2018-06-12] MEDS ORDERED: SODIUM CHLORIDE 0.9% 1000ML 1,000 ML IV SCH (09:00)
[2018-06-12] MEDS ORDERED: VENLAFAXINE HCL XR 37.5 MG CAPXR PO SCH (09:00)
[2018-06-12] MEDS: OXYCODONE HCL 20 MG TABCR (OXYCONTIN) PO SCH ×2 (09:38→20:09)
[2018-06-12] MEDS: DOCUSATE SODIUM 100 MG CAP PO SCH ×2 (09:38→20:04)
[2018-06-12] MEDS: CARBIDOPA/LEVODOPA 50/200MG EXT REL TAB PO SCH ×3 (09:39→20:05)
[2018-06-12] MEDS: PENTOXIFYLLINE 400MG EXT REL TAB PO SCH ×2 (09:40→13:38)
[2018-06-12] MEDS: DOXYCYCLINE HYCLATE 100 MG CAP PO SCH (09:41)
[2018-06-12] MEDS: TRAZODONE HCL 50 MG TAB PO SCH ×2 (09:42→20:04)
[2018-06-12] MEDS: CARVEDILOL 6.25 MG TAB PO SCH ×2 (09:46→19:43)
[2018-06-12] MEDS: PREGABALIN 50 MG CAP PO SCH ×3 (09:48→20:09)
--- NOTE | 2018-06-12 10:12 | Anesthesiology Consultation ---
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 Surgery Operation Date: 06/12/18 08:30 Proposed Procedures p Endoscopic Retrograde Cholangiopancreatography - Ellis Machuca MD Height/Weight Height: 5 ft 4 in Weight: 96.1 kg Allergies Allergy/AdvReac Type Severity Reaction Status Date / Time Iodinated Contrast- Oral and Allergy Intermediate IV Verified 06/11/18 13:28 IV Dye CONTRAST- HIVES mivacurium Allergy Mild dizzy, Verified 06/11/18 13:28 nauseous (per patient) Bactrim Allergy Unknown patient Verified 09/21/16 05:17 unsure Cipro Allergy Unknown unknown Verified 09/21/16 05:17 ciprofloxacin Allergy Unknown unknown Verified 06/11/18 13:28 nitrofurantoin Allergy Unknown unknown Verified 06/11/18 13:28 sulfamethoxazole Allergy Unknown patient Verified 06/11/18 13:28 unsure trimethoprim Allergy Unknown patient Verified 06/11/18 13:28 unsure acarbose AdvReac Mild GI SYMPTOMS Verified 06/11/18 13:28 insulin glargine AdvReac Mild "Very ill" Verified 06/11/18 18:24 [From Lantus U-100 Insulin] - see comments metformin AdvReac Mild GI SYMPTOMS Verified 06/11/18 13:28 Penicillins AdvReac Mild dizzy, Verified 06/11/18 13:28 nausous (per patient) tolerated zosyn [id number] troglitazone AdvReac Mild GI SYMPTOMS Verified 06/11/18 13:28 Medications Home Medications Medication Instructions Recorded Confirmed Last Taken ascorbic acid (vitamin C) 500 mg PO DAILY 06/11/18 06/11/18 Unknown aspirin [Aspirin Low Dose] 81 mg PO DAILY 06/11/18 06/11/18 Unknown atorvastatin 40 mg PO DAILY 06/11/18 06/11/18 Unknown carbidopa-levodopa [Sinemet CR] 2 tab PO TID 06/11/18 06/11/18 Unknown carvedilol 6.25 mg PO BID 06/11/18 06/11/18 Unknown clopidogrel 75 mg PO DAILY 06/11/18 06/11/18 Unknown dextromethorphan-guaifenesin 1 cap PO QID PRN 06/11/18 06/11/18 Unknown [Coricidin HBP] docusate sodium 100 mg PO BID 06/11/18 06/11/18 Unknown doxycycline hyclate [Vibramycin] 100 mg PO DAILY 06/11/18 06/11/18 Unknown ferrous sulfate 325 mg PO DAILY 06/11/18 06/11/18 Unknown folic acid 1 mg PO DAILY 06/11/18 06/11/18 Unknown insulin aspart (niacinamide) 0 unit SUBCUT TID 06/11/18 06/11/18 Unknown [Fiasp FlexTouch U-100 Insulin] insulin aspart (niacinamide) 6 unit SUBCUT TID 06/11/18 06/11/18 Unknown [Fiasp FlexTouch U-100 Insulin] insulin degludec [Tresiba 36 unit SUBCUT QAM 06/11/18 06/11/18 Unknown FlexTouch U-200] magnesium oxide 400 mg PO DAILY 06/11/18 06/11/18 Unknown nitroglycerin See Rx Instructions .ROUTE .COMPLEX 06/11/18 06/11/18 Unknown oxycodone 5 mg PO Q6 PRN 06/11/18 06/11/18 Unknown oxycodone [OxyContin] 20 mg PO Q12H 06/11/18 06/11/18 Unknown pantoprazole 40 mg PO DAILY 06/11/18 06/11/18 Unknown pentoxifylline 400 mg PO TID 06/11/18 06/11/18 Unknown polyethylene glycol 3350 [GlycoLax] 17 g PO DAILY 06/11/18 06/11/18 Unknown pregabalin [Lyrica] 50 mg PO TID 06/11/18 06/11/18 Unknown prochlorperazine maleate 10 mg PO TID PRN 06/11/18 06/11/18 Unknown sucralfate 1 g PO QID 06/11/18 06/11/18 Unknown trazodone 50 mg PO BID 06/11/18 06/11/18 Unknown venlafaxine 37.5 mg PO DAILY 06/11/18 06/11/18 Unknown Active Medications Generic Name Dose Route Start Last Admin Trade Name Freq PRN Reason Stop Dose Admin Carbidopa/Levodopa 2 tab 06/11/18 21:00 06/12/18 09:39 Sinemet Cr 50/200mg PO 07/11/18 20:59 2 tab TID SARAH Administration Carvedilol 6.25 mg 06/11/18 21:00 06/12/18 09:46 Coreg PO 07/11/18 20:59 6.25 mg BIDM SARAH Administration Docusate Sodium 100 mg 06/11/18 21:00 06/12/18 09:38 Colace PO 07/11/18 20:59 100 mg BID SARAH Administration Doxycycline Hyclate 100 mg 06/11/18 20:00 06/12/18 09:41 Vibramycin PO 07/11/18 19:59 100 mg DAILY SARAH Administration Piperacillin Sod/Tazobactam 115 mls @ 28.75 mls/hr 06/11/18 22:00 06/12/18 09:37 Sod 3.375 gm/ Dextrose IV 06/21/18 21:59 Infused Q8H SARAH Infusion Protocol Sodium Chloride 1,000 mls @ 80 mls/hr 06/12/18 09:00 06/12/18 09:38 Nss 1000ml IV 07/12/18 08:59 80 mls/hr .[id number] SARAH Administration Ioversol 94 ml 06/11/18 14:24 06/11/18 14:25 Optiray 320 100ml IV 06/15/18 14:23 94 ml ONCE PRN Administration Interaction Checking Oxycodone HCl 20 mg 06/11/18 21:00 06/12/18 09:38 Oxycontin PO 06/25/18 20:59 20 mg Q12 SARAH Administration Pentoxifylline 400 mg 06/11/18 21:00 06/12/18 09:40 Trental PO 07/11/18 20:59 400 mg TID SARAH Administration Pregabalin 50 mg 06/11/18 21:00 06/12/18 09:48 Lyrica PO 07/11/18 20:59 50 mg TID SARAH Administration Trazodone HCl 50 mg 06/11/18 21:00 06/12/18 09:42 Desyrel PO 07/11/18 20:59 50 mg BID SARAH Administration Venlafaxine HCl 37.5 mg 06/12/18 09:00 06/12/18 09:40 Effexor Extended Release PO 07/12/18 08:59 37.5 mg DAILY SARAH Administration NPO Date Last Intake of Fluids: 06/11/18 Time Last Intake of Fluids: 23:59 Last Intake of Fluids Comment: sips with meds this AM Date Last Intake of Solids: 06/10/18 Time Last Intake of Solids: 16:00 Past Medical History Medical History Coronary artery disease (Chronic) "s/p PCI ? [place]" Hypertension (Chronic) GERD (gastroesophageal reflux disease) (Chronic) Diabetes mellitus, type 2 (Chronic) Diabetic neuropathy (Chronic) Parkinson's disease (Chronic) Recurrent urinary tract infection (Chronic) Chronic pain syndrome (Chronic) "arthritis + neuropathy" Atrial fibrillation (Chronic) "per old records" Past Surgical History Surgical History Status post cardiac catheterization (Chronic) Status post coronary artery stent placement (Chronic) Status post cholecystectomy (Chronic) Social History Smoking Status: Unknown if ever smoked Physical Exam Vital Signs Last Vital Signs Temp 97.5 F L 06/11/18 23:16 Pulse 83 06/12/18 09:45 Resp 18 06/12/18 06:59 BP 124/79 06/12/18 09:45 Pulse Ox 96 06/12/18 06:59 Testing Electrocardiogram Date: 06/11/18 Findings: + NSR @ (73 bpm) and + RBBB Chest X-Ray Date: 06/11/18 Findings: + NAD Echocardiogram Date: 11/22/15 The left ventricle is normal in size. There is mild concentric left ventricular hypertrophy. The left ventricular wall motion is normal. Ejection Fraction = >70 %. Grade I diastolic dysfunction, (abnormal relaxation pattern). The aortic valve leaflets are moderately calcified. Mild valvular aortic stenosis. There is no significant aortic regurgitation. There is trace mitral regurgitation. Significant tricuspid regurgitation is absent. Doppler findings do not suggest pulmonary hypertension. There is no pericardial effusion. Laboratory Results 06/12/18 07:49 06/12/18 07:49 PT 10.4 Seconds (9.0-12.0) 06/11/18 10:53 INR 1.0 (0.9-1.1) 06/11/18 10:53 Urine Color Yellow 06/11/18 12:30 Urine Appearance Turbid (Clear) A 06/11/18 12:30 Urine pH 6.5 (4.5-7.5) 06/11/18 12:30 Ur Specific [place] 1.017 (1.000-1.030) 06/11/18 12:30 Urine Protein 1+ (Negative) H 06/11/18 12:30 Urine Glucose (UA) Negative (Negative) 06/11/18 12:30 Urine Ketones Negative (Negative) 06/11/18 12:30 Urine Nitrite Positive (Negative) A 06/11/18 12:30 Ur Leukocyte Esterase 3+ (Negative) H 06/11/18 12:30 Urine WBC (Auto) >30 /hpf (0-5) H 06/11/18 12:30 Urine RBC (Auto) 10-30 /hpf (0-4) H 06/11/18 12:30 U Hyaline Cast (Auto) 1-5 /lpf (0-5) 06/11/18 12:30 U Epithel Cells (Auto) 0-5 /lpf (0-5) 06/11/18 12:30 Urine Bacteria (Auto) 3+ (Negative) H 06/11/18 12:30 06/11/18 12:30 Urine Culture - Preliminary Urine,Straight Cath Gram negative bacilli 06/12/18 06/12/18 05:39 00:15 POC Glucose 236 H 277 H
--- NOTE | 2018-06-12 11:05 | Gastroenterology Progress Note ---
Date of Service June 12, 2018 Assessment & Plan (1) Elevated LFTs: (2) Cirrhosis: (3) Liver mass: (4) RUQ abdominal pain: Pt is a 82 y/o female w PMHx of colon ca s/p resection, cirrhosis, HCC s/p ? TACE in 2011 at [facility]; who presented to ED w c/o RUQ abd pain w/o fever, chills, n/v. On eval has mild leukocytosis and elevated LFTs. CT imaging studies showe cirrhotic liver w 2cm liver mass and dilated common bile, intrahepatic ducts w periductal stranding concerning for possible cholangitis, choledocholithiasis or cholangiocarcinoma MRCP done last night to f/u on CT scan results showed 6cm segment 5 liver lesion, and dilated common bile and hepatic ducts w soft tissue mass concerning for cholangiocarcinoma, + peripancreatic lymphadenopathies. - Obtain records from [facility] and Dr. San ([facility]) - Keep NPO for ERCP in OR today with Dr. Machuca; will request 2U platelets on hold. - Hold ASA and Plavix - IVF hydration - Broad spectrum IV antibx. - Would need to discuss with family about MRCP findings and their preference of where pt should follow up cancer workup. She had previously been treated at [facility] for liver cancer. Supervising Physician Co-Signing Physician Notes I performed a history and physical examination of the patient, including specifically on physical exam - soft, nontender abdomen. I have discussed the patient's management with Lorie. Please refer to the nurse practitioner's note for the documented findings and plan of care. ERCP today Subjective Pt denies any n/v. Still having RUQ abd tenderness on palpation. Noted LFTs, BUN/Cr increased. MRCP obtained yesterday: 1. Segment 5 hepatic mass that measures approximately 6.5 x 4.3 x 4.1 cm. Associated intrahepatic biliary ductal dilatation. This is consistent with a neoplasm and cholangiocarcinoma is favored. 2. Distended common hepatic and common bile ducts which likely contain soft tissue. This also favors a neoplasm and may reflect cholangiocarcinoma. Cholangitis could appear similar. 3. Mildly enlarged peripancreatic lymph nodes which raise the possibility of aries spread of disease. 4. Probable cirrhosis. 5. Mild bilateral hydroureteronephrosis. Review of Systems Review of Systems: All systems reviewed & are unremarkable except as noted in HPI & below Physical Exam Constitutional: WD/WN, vitals as above well groomed, cooperative and comfortable Eyes: PERRL, conjunctivae normal, anicteric sclerae ENMT: external ear and nose normal, oropharynx normal Respiratory: normal respiratory effort, lungs clear to auscultation Cardiovascular: RRR, no murmur, no edema Gastrointestinal (Abdomen): Inspection/Auscultation: + hypoactive bowel sounds Percussion/Palpation: + abdomen tender (ruq ) and abdomen soft Skin: no rashes, warm and dry no jaundice Neurologic: Motor/Sensory: no asterixis Psychiatric: A+Ox3, euthymic affect Lymphatic: no lymphedema Results & Data Vital Signs (Past 12 Hours) Vital Signs Temp Pulse Resp BP Pulse Ox 06/12/18 09:45 83 124/79 06/12/18 06:59 73 18 107/64 96 06/11/18 23:16 36.4 C L 95 H 16 151/88 H 98 Laboratory Results - last 72 hr 06/11/18 06/11/18 06/11/18 10:53 10:53 10:53 WBC 10.90 H RBC 4.36 Hgb 11.4 L Hct 37.2 MCV 85.3 MCH 26.1 MCHC 30.6 L RDW Std Deviation 55.8 H RDW Coeff of Cha 17.9 H Plt Count 134 MPV 12.3 H Immature Gran % (Auto) 0.4 Neut % (Auto) 86.1 Lymph % (Auto) 7.2 Walsh % (Auto) 5.4 Eos % (Auto) 0.7 Baso % (Auto) 0.2 Immature Gran # (Auto) 0.04 H Neut # (Auto) 9.39 H Lymph # (Auto) 0.78 L Walsh # (Auto) 0.59 Eos # (Auto) 0.08 Baso # (Auto) 0.02 Giant Platelets PT 10.4 INR 1.0 Sodium 138 Potassium 4.0 Chloride 102 Carbon Dioxide 31 Anion Gap 5.0 BUN 24 H Creatinine 1.06 Est Cr Clr Drug Dosing 45.3 Est GFR ( Amer) 55.8 Est GFR (Non-Af Amer) 48.2 BUN/Creatinine Ratio 22.7 H Glucose 183 H POC Glucose Calcium 9.2 Magnesium Total Bilirubin 1.1 H Direct Bilirubin AST 316 H ALT 88 H Alkaline Phosphatase 413 H Total Protein 7.5 Albumin 3.2 L Globulin 4.3 H Albumin/Globulin Ratio 0.8 L Lipase 72 L Urine Color Urine Appearance Urine pH Ur Specific [place] Urine Protein Urine Glucose (UA) Urine Ketones Urine Blood Urine Nitrite Urine Bilirubin Urine Urobilinogen Ur Leukocyte Esterase Urine WBC (Auto) Urine RBC (Auto) U Hyaline Cast (Auto) U Epithel Cells (Auto) Urine Bacteria (Auto) 06/11/18 06/11/18 06/12/18 12:30 21:22 00:15 WBC RBC Hgb Hct MCV MCH MCHC RDW Std Deviation RDW Coeff of Cha Plt Count MPV Immature Gran % (Auto) Neut % (Auto) Lymph % (Auto) Walsh % (Auto) Eos % (Auto) Baso % (Auto) Immature Gran # (Auto) Neut # (Auto) Lymph # (Auto) Walsh # (Auto) Eos # (Auto) Baso # (Auto) Giant Platelets PT INR Sodium Potassium Chloride Carbon Dioxide Anion Gap BUN Creatinine Est Cr Clr Drug Dosing Est GFR ( Amer) Est GFR (Non-Af Amer) BUN/Creatinine Ratio Glucose POC Glucose 280 H 277 H Calcium Magnesium Total Bilirubin Direct Bilirubin AST ALT Alkaline Phosphatase Total Protein Albumin Globulin Albumin/Globulin Ratio Lipase Urine Color Yellow Urine Appearance Turbid A Urine pH 6.5 Ur Specific [place] 1.017 Urine Protein 1+ H Urine Glucose (UA) Negative Urine Ketones Negative Urine Blood 2+ H Urine Nitrite Positive A Urine Bilirubin Negative Urine Urobilinogen Negative Ur Leukocyte Esterase 3+ H Urine WBC (Auto) >30 H Urine RBC (Auto) 10-30 H U Hyaline Cast (Auto) 1-5 U Epithel Cells (Auto) 0-5 Urine Bacteria (Auto) 3+ H 06/12/18 06/12/18 06/12/18 05:39 07:49 07:49 WBC 4.68 L D RBC 4.16 L Hgb 10.8 L Hct 35.2 L MCV 84.6 MCH 26.0 MCHC 30.7 L RDW Std Deviation 54.7 H RDW Coeff of Cha 17.6 H Plt Count 107 L MPV 12.1 H Immature Gran % (Auto) 0.2 Neut % (Auto) 81.9 Lymph % (Auto) 12.8 Walsh % (Auto) 4.9 Eos % (Auto) 0.2 Baso % (Auto) 0.0 Immature Gran # (Auto) 0.01 Neut # (Auto) 3.83 Lymph # (Auto) 0.60 L Walsh # (Auto) 0.23 Eos # (Auto) 0.01 Baso # (Auto) 0.00 Giant Platelets 1+ PT INR Sodium 140 Potassium 4.4 Chloride 105 Carbon Dioxide 28 Anion Gap 6.0 BUN 26 H Creatinine 1.21 H Est Cr Clr Drug Dosing 38.9 Est GFR ( Amer) 47.6 Est GFR (Non-Af Amer) 41.1 BUN/Creatinine Ratio 21.5 H Glucose 240 H POC Glucose 236 H Calcium 9.2 Magnesium 2.0 Total Bilirubin 2.4 H D Direct Bilirubin 2.0 H AST 519 H ALT 49 Alkaline Phosphatase 613 H Total Protein 7.0 Albumin 2.8 L Globulin Albumin/Globulin Ratio Lipase Urine Color Urine Appearance Urine pH Ur Specific [place] Urine Protein Urine Glucose (UA) Urine Ketones Urine Blood Urine Nitrite Urine Bilirubin Urine Urobilinogen Ur Leukocyte Esterase Urine WBC (Auto) Urine RBC (Auto) U Hyaline Cast (Auto) U Epithel Cells (Auto) Urine Bacteria (Auto)
[2018-06-12] MEDS ORDERED: GLUCOSE 10 TABS/TUBE PO PRN (11:22)
[2018-06-12] MEDS ORDERED: CARBOHYDRATES FOR HYPOGLYCEMIA PO PRN (11:22)
[2018-06-12] MEDS ORDERED: GLUCOSE 40% GEL 15 GM TUBE PO PRN (11:22)
[2018-06-12] MEDS ORDERED: GLUCAGON FOR INJ 1 MG VIAL SQ PRN (11:22)
[2018-06-12] MEDS ORDERED: INSULIN GLARGINE SOLOSTAR 100 UNITS/ML 3 ML PEN SC ONE (11:22)
[2018-06-12] MEDS ORDERED: DEXTROSE 50% 50 ML SYRINGE IV PRN (11:22)
[2018-06-12] MEDS ORDERED: PANTOprazole 40 MG TAB PO SCH (11:30)
[2018-06-12] MEDS ORDERED: fentaNYL citrate 100 MCG/2 ML VIAL ONE (14:33)
[2018-06-12] MEDS ORDERED: PROPOFOL IV EMULSION 10 MG/ML 20 ML VIAL IV ONE (14:33)
[2018-06-12] MEDS ORDERED: LIDOCAINE HCL 2% 2 ML VIAL/AMP(20MG/ML) INFIL ONE (14:33)
--- NOTE | 2018-06-12 15:13 | History & Physical Bridge Note ---
Date of Service June 12, 2018 History & Physical Bridge Note I have examined the patient, reviewed the History & Physical and in the interval since the performance of the History & Physical I have noted the following changes of clinical significance: no changes noted ERCP today, I discussed risk, benefit and alternatives with her daughter and she consented
--- NOTE | 2018-06-12 16:04 | Operative Report ---
Post Operative Report Pre & Post Diagnosis Operation Date: 06/12/18 08:30 Pre-Op Diagnosis: Liver Mass, Right Upper Quadrant Pain Post-Op Diagnosis: Liver Mass, Right Upper Quadrant Pain Procedure Operation Date: 06/12/18 08:30 Actual Procedures p Endoscopic Retrograde Cholangiopancreatography(Not Applicable) - Ellis Machuca MD Surgeon Ellis Machuca MD Hotel Desk Clerk None Estimated Blood Loss 0 Findings See Below (Hemobilia, CBD stent placed) Specimens None Description of Procedure ERCP I attest to the content of the Intraoperative Record and any orders documented therein. Any exceptions are noted below.
--- NOTE | 2018-06-12 16:26 | Hospitalist Progress Note ---
Date of Service June 12, 2018 Assessment & Plan (1) RUQ abdominal pain: - Likely related to liver lesion; CT A/P showed 2 cm mass arising from right lobe of the liver and common hepatic and bile duct dilation. - MRCP showed hepatic mass measuring 6.5 x 4.3 x 4.1 cm with associated intrahepatic biliary ductal dilation, likely cholangiocarcinoma. - Also has associated peripancreatic lymphadenopathy and bilat mild hydronephrosis. - Dilaudid prn pain, Zofran prn nausea/vomiting. - Currently receiving Zosyn IV for empiric coverage of cholangitis. (2) Liver mass: - Imaging as noted above -- concern for cholangiocarcinoma. - S/p ERCP today, biopsy results are pending. - Was treated at [facility] in past for colon cancer with liver metastatic s/p TACE -- will likely prefer to follow up with [facility] if diagnosed with cholangiocarcinoma. (3) Elevated LFTs: - LFTs all trending up in setting of liver mass, bile duct obstruction from compression of mass. - Trend qAM -- may require stent placement during ERCP. - Hold statin due to elevated LFTs. (4) Acute kidney injury: - Creatinine increased to 1.21 -- likely prerenal related to dehydration. - Started IV fluids at 80 cc/hr. (5) Coronary artery disease: - No evidence of acute symptoms. - Continue Coreg as prescribed. - Holding home aspirin/plavix in setting of procedure. - Holding statin due to elevated LFTs. (6) Diabetes mellitus, type 2: - Holding home insulin regimen. - Started gluc checks q6hr while NPO. - Lantus 23 units today then 30 units qAM. - SSI coverage. (7) Parkinson's disease: - Continue Sinemet as prescribed. (8) Atrial fibrillation: - Paroxysmal -- currently in NSR. - Not on anticoagulation at home. (9) UTI (urinary tract infection): - On Doxycyline for suppression of chronic UTIs. - Holding med in setting of Zosyn IV. (10) Chronic pain syndrome: - Continue home Oxycontin 20 mg q12hr, Lyrica 50 mg TID, Trental 400 mg TID as prescribed. - Dilaudid prn acute pain. (11) Depression: - Continue Effexor as prescribed. (12) Anemia: - Trend CBC qAM. (13) DVT prophylaxis: - Hold in setting of procedure. Dispo: Med/surg for evaluation of RUQ pain, biopsies pending from ERCP. Subjective Pt. is doing well. Complains of dry mouth due to being NPO. RUQ pain is improved. Denies N/V, constipation. S/p ERCP today. Review of Systems Review of Systems: All systems reviewed & are unremarkable except as noted in HPI & below Constitutional: no fever, no chills, no fatigue, no weakness and no anorexia Respiratory: no cough, no dyspnea, no dyspnea on exertion and no wheezing Cardiovascular: no chest pain, no palpitations and no edema Gastrointestinal: + abdominal pain; no nausea, no vomiting and no constipation Genitourinary: no difficulty urinating Musculoskeletal: no back pain and no joint pain Integumentary: no non-healing lesions Allergy / Immunological: no rash Physical Exam Physical Exam: General: Resting comfortably in no apparent distress HEENT: NC/AT; PERRLA with EOMI; [place] conjunctiva, MMM. Dry oral mucosa. Neck: Supple and nontender Cardiac: RRR Lungs: CTA bilaterally; No rhonchi, wheezing, or rales Abdomen: Bowel normoactive X 4; Tenderness to light palpation over epigastric region. Extremities: Warm. No edema present Neuro: No focal weakness Skin: No rash Results & Data Vital Signs (Past 12 Hours) Vital Signs Temp Pulse Resp BP Pulse Ox 06/12/18 14:55 36.4 C L 78 18 110/54 L 94 06/12/18 09:45 83 124/79 06/12/18 06:59 73 18 107/64 96 Laboratory Results 06/12/18 06/12/18 06/12/18 Range/Units 12:05 07:49 07:49 WBC 4.68 L D (4.8-10.8) K/uL RBC 4.16 L (4.2-5.4) M/uL Hgb 10.8 L (12.0-16.0) g/dL Hct 35.2 L (37-47) % MCV 84.6 (80-100) fL MCH 26.0 (25-34) pg MCHC 30.7 L (32-36) g/dL RDW Std Deviation 54.7 H (36.4-46.3) fL RDW Coeff of Cha 17.6 H (11.5-14.5) % Plt Count 107 L (130-400) K/uL MPV 12.1 H (7.4-10.4) fL Immature Gran % (Auto) 0.2 % Neut % (Auto) 81.9 % Lymph % (Auto) 12.8 % Schleicher % (Auto) 4.9 % Eos % (Auto) 0.2 % Baso % (Auto) 0.0 % Immature Gran # (Auto) 0.01 (0.00-0.02) K/uL Neut # (Auto) 3.83 (1.4-6.5) K/uL Lymph # (Auto) 0.60 L (1.2-3.4) K/uL Schleicher # (Auto) 0.23 (0.11-0.59) K/uL Eos # (Auto) 0.01 (0-0.5) K/uL Baso # (Auto) 0.00 (0-0.2) K/uL Giant Platelets 1+ PT (9.0-12.0) Seconds INR (0.9-1.1) Sodium 140 (136-145) mmol/L Potassium 4.4 (3.5-5.1) mmol/L Chloride 105 (98-107) mmol/L Carbon Dioxide 28 (21-32) mmol/L Anion Gap 6.0 (3-11) BUN 26 H (7-18) mg/dl Creatinine 1.21 H (0.6-1.2) mg/dl Est Cr Clr Drug Dosing 38.9 ml/min Est GFR ( Amer) 47.6 Est GFR (Non-Af Amer) 41.1 BUN/Creatinine Ratio 21.5 H (10-20) Glucose 240 H (70-99) mg/dl POC Glucose 223 H (70-99) Calcium 9.2 (8.5-10.1) mg/dl Magnesium 2.0 (1.8-2.4) mg/dl Total Bilirubin 2.4 H D (0.2-1) mg/dl Direct Bilirubin 2.0 H (0-0.2) mg/dl AST 519 H (15-37) U/L ALT 49 (12-78) U/L Alkaline Phosphatase 613 H (45-117) U/L Total Protein 7.0 (6.4-8.2) gm/dl Albumin 2.8 L (3.4-5.0) gm/dl 06/12/18 06/12/18 06/11/18 Range/Units 05:39 00:15 21:22 WBC (4.8-10.8) K/uL RBC (4.2-5.4) M/uL Hgb (12.0-16.0) g/dL Hct (37-47) % MCV (80-100) fL MCH (25-34) pg MCHC (32-36) g/dL RDW Std Deviation (36.4-46.3) fL RDW Coeff of Cha (11.5-14.5) % Plt Count (130-400) K/uL MPV (7.4-10.4) fL Immature Gran % (Auto) % Neut % (Auto) % Lymph % (Auto) % Schleicher % (Auto) % Eos % (Auto) % Baso % (Auto) % Immature Gran # (Auto) (0.00-0.02) K/uL Neut # (Auto) (1.4-6.5) K/uL Lymph # (Auto) (1.2-3.4) K/uL Schleicher # (Auto) (0.11-0.59) K/uL Eos # (Auto) (0-0.5) K/uL Baso # (Auto) (0-0.2) K/uL Giant Platelets PT (9.0-12.0) Seconds INR (0.9-1.1) Sodium (136-145) mmol/L Potassium (3.5-5.1) mmol/L Chloride (98-107) mmol/L Carbon Dioxide (21-32) mmol/L Anion Gap (3-11) BUN (7-18) mg/dl Creatinine (0.6-1.2) mg/dl Est Cr Clr Drug Dosing ml/min Est GFR ( Amer) Est GFR (Non-Af Amer) BUN/Creatinine Ratio (10-20) Glucose (70-99) mg/dl POC Glucose 236 H 277 H 280 H (70-99) Calcium (8.5-10.1) mg/dl Magnesium (1.8-2.4) mg/dl Total Bilirubin (0.2-1) mg/dl Direct Bilirubin (0-0.2) mg/dl AST (15-37) U/L ALT (12-78) U/L Alkaline Phosphatase (45-117) U/L Total Protein (6.4-8.2) gm/dl Albumin (3.4-5.0) gm/dl 06/11/18 Range/Units 10:53 WBC (4.8-10.8) K/uL RBC (4.2-5.4) M/uL Hgb (12.0-16.0) g/dL Hct (37-47) % MCV (80-100) fL MCH (25-34) pg MCHC (32-36) g/dL RDW Std Deviation (36.4-46.3) fL RDW Coeff of Cha (11.5-14.5) % Plt Count (130-400) K/uL MPV (7.4-10.4) fL Immature Gran % (Auto) % Neut % (Auto) % Lymph % (Auto) % Schleicher % (Auto) % Eos % (Auto) % Baso % (Auto) % Immature Gran # (Auto) (0.00-0.02) K/uL Neut # (Auto) (1.4-6.5) K/uL Lymph # (Auto) (1.2-3.4) K/uL Schleicher # (Auto) (0.11-0.59) K/uL Eos # (Auto) (0-0.5) K/uL Baso # (Auto) (0-0.2) K/uL Giant Platelets PT 10.4 (9.0-12.0) Seconds INR 1.0 (0.9-1.1) Sodium (136-145) mmol/L Potassium (3.5-5.1) mmol/L Chloride (98-107) mmol/L Carbon Dioxide (21-32) mmol/L Anion Gap (3-11) BUN (7-18) mg/dl Creatinine (0.6-1.2) mg/dl Est Cr Clr Drug Dosing ml/min Est GFR ( Amer) Est GFR (Non-Af Amer) BUN/Creatinine Ratio (10-20) Glucose (70-99) mg/dl POC Glucose (70-99) Calcium (8.5-10.1) mg/dl Magnesium (1.8-2.4) mg/dl Total Bilirubin (0.2-1) mg/dl Direct Bilirubin (0-0.2) mg/dl AST (15-37) U/L ALT (12-78) U/L Alkaline Phosphatase (45-117) U/L Total Protein (6.4-8.2) gm/dl Albumin (3.4-5.0) gm/dl
--- NOTE | 2018-06-12 16:30 | GI REPORT ---
Patient Name: Katya Acevedo Procedure Date: 06/12/2018 2:38 PM Date of : 1935 Admit Type: Inpatient Age: 82 Gender: Female Attending MD: Ellis Machuca MD Procedure: ERCP Providers: Ellis Machuca MD Referring MD: Geremias Chino Md, Jason Hendricks, Miguelito Connor MD Indications: Biliary dilation on Computed Tomogram Scan, Abnormal MRCP, For therapy of ascending cholangitis, Jaundice ( patient has Hx of Colon cancer, ? HCC s/p TACE, Liver Cirrhosis) Medicines: General Anesthesia, Platelets transfusion Complications: No immediate complications. Estimated Blood Loss: Estimated blood loss: none. Procedure: Pre-Anesthesia Assessment: - Prior to the procedure, a History and Physical was performed, and patient medications and allergies were reviewed. The patient is competent but daughter signed her consent. The risks and benefits of the procedure and the sedation options and risks were discussed with the patient and her daughter. All questions were answered and informed consent was obtained. Patient identification and proposed procedure were verified by the physician and the nurse in the procedure room. Mental Status Examination: alert and oriented. Airway Examination: normal oropharyngeal airway and neck mobility. Respiratory Examination: clear to auscultation. CV Examination: normal. ASA Grade Assessment: IV - A patient with severe systemic disease that is a constant threat to life. After reviewing the risks and benefits, the patient was deemed in satisfactory condition to undergo the procedure. The anesthesia plan was to use general anesthesia. Immediately prior to administration of medications, the patient was re-assessed for adequacy to receive sedatives. The heart rate, respiratory rate, oxygen saturations, blood pressure, adequacy of pulmonary ventilation, and response to care were monitored throughout the procedure. The physical status of the patient was re-assessed after the procedure. After obtaining informed consent, the scope was passed under direct vision. Throughout the procedure, the patient's blood pressure, pulse, and oxygen saturations were monitored continuously. The Scope was introduced through the mouth, and advanced to the duodenum and used to inject contrast into the bile duct. The ERCP was accomplished without difficulty. The patient tolerated the procedure well. Findings: A encapsulator film of the abdomen was obtained. Surgical clips, consistent with a previous cholecystectomy, were seen in the area of the right upper quadrant of the abdomen. The esophagus was successfully intubated under direct vision. The scope was advanced to a normal major papilla in the descending duodenum without detailed examination of the pharynx, larynx and associated structures, and upper GI tract. The upper GI tract was grossly normal. Red blood was found in the duodenal bulb and in the second portion of the duodenum. Blood and blood clots was coming from the major papilla. A 0.035 inch straight standard wire was passed into the biliary tree from the first attempt. The Fusion OMNI sphincterotome was passed over the guidewire and the bile duct was then deeply cannulated. Contrast was injected. I personally interpreted the bile duct images. Ductal flow of contrast was adequate. Image quality was adequate. Contrast extended to the entire biliary tree. The main bile duct and intrahepatic branches were dilated. The largest diameter was 12 mm. The lower third of the main duct contained filling defect(s) which are actually blood clots. No stones or masses noted on the cholangiogram. To discover objects, the biliary tree was swept with an 11.5 mm balloon starting at the bifurcation. Clots were swept from the duct. Sphincterotomy was not done to avoid the risk of bleeding from the cut. Occlusion cholangiogram showed no remaining filling defects or clots. One 10 Fr by 4 cm plastic stent with a full external pigtail and a full internal pigtail was placed into the common bile duct. The stent was in good position. The total fluoroscopy exposure time was 2 minutes and 21 seconds. PD was not cannulated nor injected with contrast. Impression: - Hemobilia was found. Likely bleeding from the large Liver mass. - Blood in the duodenal bulb and in the second portion of the duodenum. - Filling defects seen on prior imaging are actually blood clots was seen on the cholangiogram. - Entire main bile duct were markedly dilated. - The biliary tree was swept and clots were found. No extrahepatic biliary mass seen on the cholangiogram. - One plastic stent was placed into the common bile duct. Recommendation: - Transfer patient to a tertiary care hospital for IR embolization of the bleeding liver mass. - Avoid aspirin and nonsteroidal anti-inflammatory medicines. - Hold ASA, Pentoxifylline and Plavix. - Monitor CBC. - Transfuse Platelets as needed. - Repeat ERCP in 4 weeks to remove stent. Ellis Machuca MD 06/12/2018 4:30:34 PM This report has been signed electronically. Note Initiated On: 06/12/2018 2:38 PM Number of Addenda: 0 I attest to the content of the Intraoperative Record and orders documented therein, exceptions below {[id number]}
--- NOTE | 2018-06-12 16:30 | Fluoroscopy Report ---
[place] ERCP biliary ductal CLINICAL HISTORY: ERCP. COMPARISON STUDY: MRCP June 11, 2018 FLUOROSCOPY TIME: 2 minutes and 21 seconds. FLUOROSCOPIC IMAGES: 9. FINDINGS: These images demonstrate cannulation of the common bile duct. Irregular filling defects wit hin the mid to distal common bile duct are noted. There is intrahepatic biliary ductal dilatation. Fi nal image demonstrates placement of a biliary stent which appears appropriately positioned. IMPRESSION: Fluoroscopic images from ERCP demonstrating biliary ductal dilatation, irregular intralu guillermo filling defects within the common bile duct and placement of a common bile duct stent. Electronically signed by: Fortino Pinzon M.D. 06/12/2018 4:29 PM
[2018-06-12] MEDS ORDERED: NovoLIN-R INSULIN PER UNIT CHARGE ONE (16:39)
[2018-06-12] MEDS ORDERED: NovoLIN-R INSULIN PER UNIT CHARGE IV STA ×2 (16:40→16:48)
[2018-06-12] MEDS ORDERED: LABETALOL HCL IV 5 MG/ML 20ML IV PRN (16:48)
[2018-06-12] MEDS ORDERED: ONDANSETRON INJ 2 MG/ML 2 ML VIAL IV PRN (16:48)
[2018-06-12] MEDS ORDERED: ATROPINE SULFATE 0.1 MG/ML 10ML SYR IV PRN (16:48)
[2018-06-12] MEDS ORDERED: ePHEDrine sulfate 50 MG/ML AMP IV PRN (16:48)
[2018-06-12] MEDS ORDERED: fentaNYL citrate 100 MCG/2 ML VIAL IV PRN (16:48)
[2018-06-12] MEDS ORDERED: PROMETHAZINE HCL 12.5 MG in SODIUM CHLORIDE 0.9% 50 ML IV PRN (16:48)
[2018-06-12] MEDS ORDERED: NALOXONE HCL 0.4 MG/1 ML VIAL/CARP IV PRN (16:48)
--- NOTE | 2018-06-12 17:23 | Anesthesiology Progress Note ---
Date of Service June 12, 2018 Anesthesia Post Procedure Vital Signs Vital Signs: Temp Pulse Pulse Pulse Pulse Resp BP 06/12/18 17:17 36.6 C 80 20 111/52 L 06/12/18 17:05 36.6 C 80 20 111/52 L 06/12/18 16:55 79 20 123/49 L 06/12/18 16:45 80 23 135/76 06/12/18 16:35 77 14 97/65 L 06/12/18 16:25 81 24 127/77 06/12/18 16:19 36 C L 79 20 138/57 L 06/12/18 14:55 36.4 C L 78 18 110/54 L 06/12/18 09:45 83 124/79 06/12/18 06:59 73 18 107/64 06/11/18 23:16 36.4 C L 95 H 16 151/88 H 06/11/18 21:26 93 H 158/91 H 06/11/18 20:10 06/11/18 19:55 36.5 C 93 H 16 154/79 H 06/11/18 19:42 100 H 16 165/73 H 06/11/18 17:38 90 20 174/85 H Pulse Ox Pulse Ox 06/12/18 17:17 94 06/12/18 17:05 94 06/12/18 16:55 95 06/12/18 16:45 99 06/12/18 16:35 99 06/12/18 16:25 98 06/12/18 16:19 99 06/12/18 14:55 94 06/12/18 09:45 06/12/18 06:59 96 06/11/18 23:16 98 06/11/18 21:26 06/11/18 20:10 95 06/11/18 19:55 96 06/11/18 19:42 96 06/11/18 17:38 96 Pain Intensity Bilateral Leg: Pain Intensity: 0 Transfer of Care Handoff Completed per policy Notes Mental Status: alert / awake / arousable Patient Amnestic to Procedure: Yes Nausea / Vomiting: adequately controlled Pain: adequately controlled Airway Patency, RR, SpO2: stable & adequate BP & HR: stable & adequate Hydration State: stable & adequate Anesthetic Complications: no major complications apparent
[2018-06-12 17:26] LABS: Hematocrit (blood only) 31.3 % (37-47)
--- NOTE | 2018-06-12 17:50 | Discharge Summary ---
Date of Service June 12, 2018 Admission HPI Per Admitting Provider 82 y/o F with an extensive medical history including colon CA with liver mets post TACE procedure, cirrhosis, HTN, CAD, DM II, Parkinson's, chronic arthritic pain, PAF, obesity. Presents with progressive RUQ pain. Denies nausea, vomiting or fevers. Initial labs were notable for elevated LFTs. A CT of the abdomen demonstrated the following: Interval development of a 2 cm exophytic mass arising from the right lobe of the liver, abnormal common hepatic and common bile duct which is dilated and of increased density, periductal stranding. Diagnostic considerations include extensive cholangitis, stone filled duct, or cholangiocarcinoma. An ERCP is recommended in follow-up. 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 An MRCP is pending. The pt was seen by GI in the ER prior to admission. Admission Exam Per Admitting Provider General: Lethargic, elderly female, AAO x 3, no distress ENT: No erythema or exudates, no thrush Eyes: ARACELI, EOMI Head and neck: Normocephalic, atraumatic - cannot assess JVD due to habitus Chest/heart: Nontender, S1,2, RRR, no murmurs, no gallops Lungs: CTAB, no wheezing or crackles Abdomen: There is upper abdominal tnderness - a central firm area likely represents either scarring or a hernia and is nontender Neuro: AAO x 3, speech is clear, no unilateral weakness or loss of sensation, coordination intact Musculoskeletal: No joint inflammation, muscle tenderness, FROM Skin: No acute rashes or ulcers Extremities: No clubbing, cyanosis, minimal edema Principal Diagnosis Hemobilia, Right Lobe Liver Mass Discharge Exam General: Resting comfortably in no apparent distress HEENT: NC/AT; PERRLA with EOMI; Justice conjunctiva, MMM. Dry oral mucosa. Neck: Supple and nontender Cardiac: RRR Lungs: CTA bilaterally; No rhonchi, wheezing, or rales Abdomen: Bowel normoactive X 4; Tenderness to light palpation over epigastric region. Extremities: Warm. No edema present Neuro: No focal weakness Skin: No rash Discharge Data Allergies Allergy/AdvReac Type Severity Reaction Status Date / Time Iodinated Contrast- Oral and Allergy Intermediate IV Verified 06/11/18 13:28 IV Dye CONTRAST- HIVES mivacurium Allergy Mild dizzy, Verified 06/11/18 13:28 nauseous (per patient) Bactrim Allergy Unknown patient Verified 09/21/16 05:17 unsure Cipro Allergy Unknown unknown Verified 09/21/16 05:17 ciprofloxacin Allergy Unknown unknown Verified 06/11/18 13:28 nitrofurantoin Allergy Unknown unknown Verified 06/11/18 13:28 sulfamethoxazole Allergy Unknown patient Verified 06/11/18 13:28 unsure trimethoprim Allergy Unknown patient Verified 06/11/18 13:28 unsure acarbose AdvReac Mild GI SYMPTOMS Verified 06/11/18 13:28 insulin glargine AdvReac Mild "Very ill" Verified 06/11/18 18:24 [From Lantus U-100 Insulin] - see comments metformin AdvReac Mild GI SYMPTOMS Verified 06/11/18 13:28 Penicillins AdvReac Mild dizzy, Verified 06/11/18 13:28 nausous (per patient) tolerated zosyn [id number] troglitazone AdvReac Mild GI SYMPTOMS Verified 06/11/18 13:28 Consultations 06/11/18 15:07 ED Decision to Admit Stat 06/11/18 20:04 Consult Gastroenterology Routine 06/12/18 16:29 Burn CD for patient Stat Procedures Performed Operation Date: 06/12/18 08:30 Actual Procedures p Endoscopic Retrograde Cholangiopancreatography(Not Applicable) - Ellis Machuca MD Ordered Studies 06/11/18 11:09 US gallbladder Stat CXR 06/11/18 13:35 CT abd pelvis IV con only Stat 06/11/18 16:21 MR MRCP Stat 06/12/18 14:30 FL ERCP biliary ductal Routine Hospital Course (1) RUQ abdominal pain: Likely related to liver lesion; CT A/P showed 2 cm mass arising from right lobe of the liver and common hepatic and bile duct dilation. MRCP showed hepatic mass measuring 6.5 x 4.3 x 4.1 cm with associated intr ahepatic biliary ductal dilation, likely cholangiocarcinoma. Also has associated peripancreatic lymphadenopathy and bilat mild hydronephrosis. Dilaudid prn pain, Zofran prn nausea/vomiting. Currently receiving Zosyn IV for empiric coverage of cholangitis along with IV fluids at 80 cc/hr. (2) Hemobilia: Noted on ERCP, likely related to bleeding mass of liver. Received 1 unit platelets post procedure. Will be transferred for IR intervention. Clear liquid diet was ordered prior to transfer, will need to be NPO in the morning for procedure. (3) Liver mass: Imaging as noted above -- was initially a concern for cholangiocarcinoma. S/p ERCP today, showed blood in the duodenal bulb and in the second portion of the duodenum along with hemobilia likely from bleeding liver mass. Plastic stent was placed in the CBD. She received 1 unit platelets following procedure. Will need ERCP in 4 weeks to remove stent. Pt. will be transferred to [facility] for IR intervention (previous site of TACE for colon cancer with liver mets) (4) Elevated LFTs: LFTs all trending up in setting of liver mass, bile duct obstruction from compression of mass. Holding statin due to elevated LFTs. (5) Acute kidney injury: Creatinine increased to 1.21 -- likely prerenal related to dehydration. On IV fluids at 80 cc/hr. (6) Coronary artery disease: No evidence of acute symptoms. Continued Coreg as prescribed. Holding home aspirin/plavix in setting of procedure and holding statin due to elevated LFTs. (7) Diabetes mellitus, type 2: Holding home insulin regimen. Started gluc checks q6hr while NPO. Lantus 23 units today then 30 units qAM. SSI coverage. (8) Parkinson's disease: Continued Sinemet as prescribed. (9) Atrial fibrillation: Paroxysmal -- currently in NSR. Not on anticoagulation at home. (10) UTI (urinary tract infection): On Doxycyline for suppression of chronic UTIs. Holding med in setting of Zosyn IV. (11) Chronic pain syndrome: Continued home Oxycontin 20 mg q12hr, Lyrica 50 mg TID, Trental 400 mg TID as prescribed. Dilaudid IV prn acute pain. (12) Depression: Continue Effexor as prescribed. (13) Anemia: Trend CBC qAM. (14) DVT prophylaxis: Held in setting of procedure. Pt. will be transferred to [facility] to interventional radiology in setting of hemobilia. Total Time Total Time Spent Total Time Spent (In Minutes): >30 minutes Total Time Includes: Examination of the Patient, Discharge Planning, Medication Reconciliation, Communication With Other Providers and Other Discharge Plan Discharge Items Patient Disposition: Transfer Acute Care Hospital Reason For Visit: LIVER MASS,RUQ PAIN Discharge Diagnosis: Hemobilia, Liver Mass Condition: Critical Discharge Goals: Diagnostic testing and Therapeutic intervention Activity: As commented below Non-emergency contact: Primary Care Provider Call non-emergency contact if: you have any medication questions Follow-up/Referrals: Krishna Villanueva [Primary Care Provider] - Diet: Regular Addtl Provider Instructions: 1. You will be transferred to [facility] for further care and evaluation in the setting of hemobilia/liver mass. Prescriptions: New piperacillin-tazobactam [Zosyn] 3.375 gram recon soln 3.375 gm IV Q8H Qty: 1 RF: 0 sodium chloride 0.9 % parenteral solution 80 ml continuous IV infusion Q1H Qty: 1200 RF: 0 Continued venlafaxine 37.5 mg Capsule,Extended Release 24hr 37.5 mg PO DAILY RF: 0 trazodone 50 mg Tablet 50 mg PO BID RF: 0 sucralfate 1 gram Tablet 1 g PO QID RF: 0 prochlorperazine maleate 10 mg Tablet 10 mg PO TID PRN (Reason: nausea/vomiting) RF: 0 docusate sodium 100 mg Capsule 100 mg PO BID RF: 0 carvedilol 6.25 mg Tablet 6.25 mg PO BID RF: 0 carbidopa-levodopa [Sinemet CR] 50-200 mg Tablet Extended Release 2 tab PO TID RF: 0 pentoxifylline 400 mg Tablet Extended Release 400 mg PO TID RF: 0 ascorbic acid (vitamin C) 500 mg Tablet 500 mg PO DAILY RF: 0 pantoprazole 40 mg Tablet,Delayed Release (Dr/Ec) 40 mg PO DAILY RF: 0 ferrous sulfate 325 mg (65 mg iron) Tablet 325 mg PO DAILY RF: 0 nitroglycerin 0.4 mg Tablet, Sublingual See Rx Instructions .ROUTE .COMPLEX RF: 0 folic acid 1 mg Tablet 1 mg PO DAILY RF: 0 polyethylene glycol 3350 [GlycoLax] 17 gram/dose Powder 17 g PO DAILY RF: 0 oxycodone 5 mg Tablet 5 mg PO Q6 PRN (Reason: Pain) RF: 0 Lyrica 50 mg Capsule 50 mg PO TID RF: 0 oxycodone [OxyContin] 20 mg Tablet,Oral Only,Ext.Rel.12 Hr 20 mg PO Q12H RF: 0 magnesium oxide 400 mg magnesium Tablet 400 mg PO DAILY RF: 0 Discontinued atorvastatin 40 mg Tablet 40 mg PO DAILY RF: 0 doxycycline hyclate [Vibramycin] 100 mg Capsule 100 mg PO DAILY RF: 0 Coricidin HBP 10-200 mg Capsule 1 cap PO QID PRN (Reason: Cough) RF: 0 clopidogrel 75 mg Tablet 75 mg PO DAILY RF: 0 aspirin [Aspirin Low Dose] 81 mg Tablet,Delayed Release (Dr/Ec) 81 mg PO DAILY RF: 0 Tresiba FlexTouch U-200 200 unit/mL (3 mL) Insulin Pen 36 unit SUBCUT QAM RF: 0 Fiasp FlexTouch U-100 Insulin 100 unit/mL (3 mL) Insulin Pen 6 unit SUBCUT TID RF: 0 Fiasp FlexTouch U-100 Insulin 100 unit/mL (3 mL) Insulin Pen SUBCUT TID RF: 0 Stand-Alone Forms: Formerly [facility], [facility]–1983 Discharge Orders: Discharge Order (Routine); Ordered 06/12/18 Ordered By: Sapna Carver Admission Data Admit Date/Time: 06/11/18 18:04 Attending Provider: Jason Hendricks Admit Provider: Delvin Oliveira Primary Care Provider: Krishna Villanueva Other Providers: Miguelito Connor Service: Surgical Services Other Interventions: Discharge Summary Assessment (RN) Last Done: 06/12/18 21:02 Pending Studies at Discharge: No DC Date/Time DO NOT enter until pt leaves facility: 06/12/18 20:35 Supervising Physician Co-Signing Physician Notes Attending Discharge Note & Attestation: Pt seen/examined, chart reviewed, discharge care plan d/w AMBERLY Carver. I agree w/ the smith components of her discharge summary. 82yo female with history of colon cancer with liver mets (s/p TACE procedure), CAD, parkinson's disease, T2DM - presented with RUQ abdominal pain. Imaging showed dilated CBD and mass in the right lobe of the liver. Started on broad-spectrum IV antibiotics. Underwent ERCP showing hemobilia - suspected to be from bleeding from the mass itself. Due to the unavailability of IR at [facility] she was transferred to [facility] for IR services to treat this bleeding lesion and for additional work-up/treatment. Discharge exam - gen - obese, NAD neck - no JVD heart - RRR, s1 s2, no murmur lungs - CTA b/l abd - soft, mild tenderness RUQ, no HSM, BS+ ext - no edema Jason Hendricks MD
[2018-06-13] MEDS ORDERED: INSULIN GLARGINE SOLOSTAR 100 UNITS/ML 3 ML PEN SC SCH (09:00)
== END 2018-06-12 20:35 | disposition short-term general hospital (02) | DRG 436 ==
LOC: ED 10:43 → SUATTDRO 18:04 → 3N 18:04
DX: E11.9 Type 2 diabetes mellitus without complications; D50.9 Iron deficiency anemia, unspecified; N17.9 Acute kidney failure, unspecified; I48.0 Paroxysmal atrial fibrillation; Z79.4 Long term (current) use of insulin; F32.9 Major depressive disorder, single episode, unspecified; I10 Essential (primary) hypertension; Z79.82 Long term (current) use of aspirin; G89.4 Chronic pain syndrome; Z79.899 Other long term (current) drug therapy; K83.8 Other specified diseases of biliary tract; K21.9 Gastro-esophageal reflux disease without esophagitis; I25.10 Atherosclerotic heart disease of native coronary artery without angina pectoris; C22.1 Intrahepatic bile duct carcinoma; G20 Parkinson's disease; K74.60 Unspecified cirrhosis of liver

== ENCOUNTER 2018-08-24 08:22 | Inpatient (IN) ==
[2018-08-24] MEDS ORDERED: SODIUM CHLORIDE 0.9% 1000ML 500 ML IV ONE (08:55)
[2018-08-24] MEDS ORDERED: MoRPHine SULFATE 2 MG/ML CARP IV STA (09:03)
[2018-08-24 09:16] LABS: Basophils # (auto) 0.01 K/uL (0-0.2); Basophils % (auto) 0.1 %; Eosinophils # (auto) 0.02 K/uL (0-0.5); Eosinophils % (auto) 0.2 %; Hematocrit (blood only) 36.3 % (37-47); Hemoglobin 11.6 g/dL (12.0-16.0); Immature Granulocytes # (auto) 0.04 K/uL (0.00-0.02); Immature Granulocytes % (auto) 0.4 %; Lymphocytes # (auto) 0.96 K/uL (1.2-3.4); Lymphocytes % (auto) 8.4 %; Mean Corpuscular Volume 86.6 fL (80-100); Mean Platelet Volume 12.4 fL (7.4-10.4); Monocytes # (auto) 1.05 K/uL (0.11-0.59); Monocytes % (auto) 9.2 %; Neutrophils % (auto) 81.7 %; Platelet Count 149 K/uL (130-400); RDW Coefficient of Variation 14.1 % (11.5-14.5); RDW Standard Deviation 44.3 fL (36.4-46.3); Red Blood Count 4.19 M/uL (4.2-5.4); White Blood Count 11.38 K/uL (4.8-10.8)
--- NOTE | 2018-08-24 09:27 | XRay Report ---
XR chest 1V portable CLINICAL HISTORY: Atypical chest pain COMPARISON STUDY: 06/11/2018 FINDINGS: The cardiac and mediastinal contours remain stable. There is borderline elevation the right hemidiaphragm. There is no failure. There is no focal pulmonary consolidation. There are no pleural effusions.[ IMPRESSION: No active disease in the chest. Electronically signed by: Tripp Parks M.D. 08/24/2018 9:25 AM
[2018-08-24 09:34] LABS: Alanine Aminotransferase 80 U/L (12-78); Albumin Level 2.4 gm/dl (3.4-5.0); Aspartate Aminotransferase 71 U/L (15-37); BUN Creatinine Ratio 18.1 (10-20); Blood Urea Nitrogen 17 mg/dl (7-18); Calcium 9.2 mg/dl (8.5-10.1); Carbon Dioxide 28 mmol/L (21-32); Chloride 99 mmol/L (98-107); Creatinine Clr Calc Pharmacy 48.8 ml/min; Est GFR (African American) 64.6; Est GFR (Non-African American) 55.7; Glucose 246 mg/dl (70-99); Potassium 4.1 mmol/L (3.5-5.1); Sodium 134 mmol/L (136-145)
[2018-08-24 09:38] LABS: Albumin Globulin Ratio 0.5 (0.9-2); Alkaline Phosphatase 836 U/L (45-117); Globulin 4.9 gm/dl (2.5-4.0); Total Protein 7.3 gm/dl (6.4-8.2); Troponin I < 0.015 ng/ml (0-0.045)
[2018-08-24 09:41] LABS: Partial Thromboplastin Ratio 1.1; Partial Thromboplastin Time 29.8 Seconds (21.0-31.0); Prothrombin Time 10.6 Seconds (9.0-12.0)
[2018-08-24] MEDS ORDERED: methylPREDNISolone 125 MG/2 ML VIAL IV STA (09:43)
[2018-08-24] MEDS ORDERED: DiphenhydrAMINE HCL 50 MG/ML VIAL IV STA (09:43)
--- NOTE | 2018-08-24 10:18 | Emergency Department Note ---
ED Visit Note I assisted in the care of this patient with Dr. Escobar. Please see his note for further details. . Resident Activity Tracking Resident Involvement: Resident Care Provided Care Provided: Adult ED
[2018-08-24] MEDS ORDERED: OPTIRAY 320 125ml IV PRN (10:42)
--- NOTE | 2018-08-24 10:52 | CT Scan Report ---
CT ANGIOGRAM OF THE CHEST CLINICAL HISTORY: Atypical chest pain. Possible pulmonary embolism. COMPARISON STUDY: Chest x-ray dated 08/24/2018 TECHNIQUE: Following the IV administration of 120 mL of Optiray-320, CT angiogram of the thorax was p erformed from the thoracic inlet to the lung bases utilizing the pulmonary embolus protocol. Images a re reviewed in the axial, sagittal, and coronal planes. IV contrast was administered without complica tion. MIP imaging was performed. A dose lowering technique was utilized adhering to the principles o f ALARA. CT DOSE: 1765.85 mGy.cm FINDINGS: The visualized portions the upper abdomen reveal a 6 cm lobulated hepatic mass. There is a biliary st ent present. No pathologically enlarged axillary mediastinal or hilar lymph nodes were visualized. There was no evidence of thoracic aortic dilatation. There were no pulmonary artery filling defects to indicate acute pulmonary embolism. No pleural effusions are visualized. There are mild dependent atelectatic changes. There is no focal pulmonary consolidation. There are sc attered tiny pulmonary nodules, many of which are calcified. Although nonspecific a postinflammatory etiology is deemed most likely. IMPRESSION: 1. No evidence of acute pulmonary embolism 2. No evidence of focal pulmonary consolidation 3. 6 cm hepatic mass Electronically signed by: Tripp Parks M.D. 08/24/2018 10:51 AM
[2018-08-24] MEDS ORDERED: PREGABALIN 50 MG CAP PO ONE (11:00)
--- NOTE | 2018-08-24 11:04 | Emergency Department Note ---
Entered by Nivia Rangel acting as a scribe for Ancelmo Escobar MD History of Present Illness General Chief complaint: Abdominal Pain Stated complaint: chest pain Time Seen by Provider: 08/24/18 08:23 Source: patient Mode of arrival: EMS History of Present Illness Provider complaint: abdominal pain Onset (ago): day(s) 2 Location: abdomen Pain Consistency: + constant Maximum Pain Intensity: 7 Quality: + other (abdominal pain) Associated symptoms: + shortness of breath; no fever/chills and no nausea/vomiting The patient is a 82 year old female who presents to the Emergency Room with complaints of abdominal pain that started two days ago. The patient identifies the abdominal pain to underneath her ribs. The patient reports shortness of breath and constipation for the past three days. The patient denies fever or chills. The patient expressed to EMS and the assigned resident that she had chest pain that is now resolved by medication that she took prior to arrival. The patient states that she had similar pain a couple of weeks ago and she was referred to [place] were she received treatment. Based on the assigned residents consultation, the patient states that her abdominal pain severity is an 8-10 and has been constant. The patient stated that she was unable to sleep since symptoms started and has been drinking but not eating. The patient was initially concerned about an episode of left sided chest pain that started at 2 am. The patient stated the chest pain came with shortness of breath and diaphoresis. The patient denied any nausea or radiation. The patient has a history of colon cancer and liver mets 7 years ago and she has recently been diagnosed cancer free. Home Medications Home Medications Medication Instructions Recorded Confirmed Type Lyrica 50 mg PO TID 06/11/18 08/24/18 History ascorbic acid (vitamin C) 500 mg PO DAILY 06/11/18 08/24/18 History carvedilol 6.25 mg PO BID 06/11/18 08/24/18 History docusate sodium 100 mg PO BID 06/11/18 08/24/18 History ferrous sulfate 325 mg PO DAILY 06/11/18 08/24/18 History folic acid 1 mg PO DAILY 06/11/18 08/24/18 History magnesium oxide 400 mg PO DAILY 06/11/18 08/24/18 History nitroglycerin See Rx Instructions .ROUTE .COMPLEX 06/11/18 08/24/18 History oxycodone 5 mg PO Q6 PRN 06/11/18 08/24/18 History oxycodone [OxyContin] 20 mg PO Q12H 06/11/18 08/24/18 History pantoprazole 40 mg PO DAILY 06/11/18 08/24/18 History polyethylene glycol 3350 [GlycoLax] 17 g PO DAILY 06/11/18 08/24/18 History prochlorperazine maleate 10 mg PO TID PRN 06/11/18 08/24/18 History sucralfate 1 g PO QID 06/11/18 06/11/18 History trazodone 50 mg PO BID 06/11/18 06/11/18 History venlafaxine 37.5 mg PO DAILY 06/11/18 08/24/18 History sodium chloride 0.9 % 80 ml CONTINUOUS IV INFUSION Q1H 06/12/18 08/24/18 Rx #1200 ml aspirin [Aspirin Low Dose] 81 mg PO DAILY 08/24/18 08/24/18 History atorvastatin 40 mg PO DAILY 08/24/18 08/24/18 History carbidopa-levodopa 2 tab PO TID 08/24/18 08/24/18 History doxycycline hyclate 100 mg PO BID 08/24/18 08/24/18 History insulin aspart (niacinamide) 6 unit SUBCUT TIDM 08/24/18 08/24/18 History [Fiasp FlexTouch U-100 Insulin] insulin degludec [Tresiba 36 unit SUBCUT QAM 08/24/18 08/24/18 History FlexTouch U-200] isosorbide mononitrate 30 mg PO DAILY 08/24/18 08/24/18 History Allergies Allergy/AdvReac Type Severity Reaction Status Date / Time Iodinated Contrast- Oral and Allergy Intermediate IV Verified 08/24/18 08:49 IV Dye CONTRAST- HIVES mivacurium Allergy Mild dizzy, Verified 08/24/18 08:49 nauseous (per patient) Bactrim Allergy Unknown patient Verified 09/21/16 05:17 unsure Cipro Allergy Unknown unknown Verified 09/21/16 05:17 ciprofloxacin Allergy Unknown unknown Verified 08/24/18 08:49 nitrofurantoin Allergy Unknown unknown Verified 08/24/18 08:49 sulfamethoxazole Allergy Unknown patient Verified 08/24/18 08:49 unsure trimethoprim Allergy Unknown patient Verified 08/24/18 08:49 unsure acarbose AdvReac Mild GI SYMPTOMS Verified 08/24/18 08:49 insulin glargine AdvReac Mild "Very ill" Verified 08/24/18 08:49 [From Lantus U-100 Insulin] - see comments metformin AdvReac Mild GI SYMPTOMS Verified 08/24/18 08:49 Penicillins AdvReac Mild dizzy, Verified 08/24/18 08:49 nausous (per patient) tolerated zosyn [id number] troglitazone AdvReac Mild GI SYMPTOMS Verified 08/24/18 08:49 Past Med/Surg History Medical History Coronary artery disease (Chronic) "s/p PCI ? [place]" Hypertension (Chronic) GERD (gastroesophageal reflux disease) (Chronic) Diabetes mellitus, type 2 (Chronic) Diabetic neuropathy (Chronic) Parkinson's disease (Chronic) Recurrent urinary tract infection (Chronic) Chronic pain syndrome (Chronic) "arthritis + neuropathy" Atrial fibrillation (Chronic) "per old records" Surgical History Status post cardiac catheterization (Chronic) Status post coronary artery stent placement (Chronic) Status post cholecystectomy (Chronic) Family History Other Myocardial infarction Social History Preferred Language: Maori Communication Ability: Effective Beliefs That Will Affect Care: None Current Living Situation: Family Current Living Situation Comment: Patient drowsy/ unable to answer at this time Feels Safe at Home: Yes Smoking Status: Never smoker Second Hand Exposure: No Hx Alcohol Use: No Hx Substance Use: No Review of Systems See HPI for pertinent positives & negatives. and A total of 10 systems reviewed and were otherwise negative Physical Exam Vital Signs Vital Signs - 24 hr 08/24/18 08:25 08/24/18 08:30 08/24/18 08:38 Temperature 36.9 C Temperature Source Oral Sepsis Recent Fever Within 48 Hours No Sepsis New/Unexplained Change in Mental Status No Sepsis Action Taken by Nursing No Action Required Pulse Rate 87 90 84 Pulse Rate from SpO2 Sensor 85 85 Pulse Rhythm Regular Pulse Strength Normal Respiratory Rate 18 20 17 Respiratory Effort / Characteristics Non-Labored Spontaneous Respiratory Depth Normal Respiratory Pattern Regular Blood Pressure 162/80 H 162/80 H Blood Pressure Mean 107 107 Blood Pressure Position Sitting Pulse Oximetry 95 96 96 Oxygen Delivery Method Room Air 08/24/18 08:40 08/24/18 08:50 08/24/18 09:00 Temperature Temperature Source Sepsis Recent Fever Within 48 Hours Sepsis New/Unexplained Change in Mental Status Sepsis Action Taken by Nursing Pulse Rate 90 87 86 Pulse Rate from SpO2 Sensor 89 87 86 Pulse Rhythm Pulse Strength Respiratory Rate 16 16 Respiratory Effort / Characteristics Respiratory Depth Respiratory Pattern Blood Pressure Blood Pressure Mean Blood Pressure Position Pulse Oximetry 94 95 95 Oxygen Delivery Method 08/24/18 09:07 08/24/18 09:10 08/24/18 09:20 Temperature Temperature Source Sepsis Recent Fever Within 48 Hours Sepsis New/Unexplained Change in Mental Status Sepsis Action Taken by Nursing Pulse Rate 85 83 84 Pulse Rate from SpO2 Sensor 84 83 84 Pulse Rhythm Pulse Strength Respiratory Rate Respiratory Effort / Characteristics Respiratory Depth Respiratory Pattern Blood Pressure 147/62 H Blood Pressure Mean 90 Blood Pressure Position Pulse Oximetry 96 96 95 Oxygen Delivery Method 08/24/18 09:30 08/24/18 09:32 08/24/18 09:40 Temperature Temperature Source Sepsis Recent Fever Within 48 Hours Sepsis New/Unexplained Change in Mental Status Sepsis Action Taken by Nursing Pulse Rate 81 85 81 Pulse Rate from SpO2 Sensor 81 86 82 Pulse Rhythm Pulse Strength Respiratory Rate Respiratory Effort / Characteristics Respiratory Depth Respiratory Pattern Blood Pressure 133/57 L Blood Pressure Mean 82 Blood Pressure Position Pulse Oximetry 95 96 95 Oxygen Delivery Method 08/24/18 09:50 08/24/18 10:03 08/24/18 10:10 Temperature Temperature Source Sepsis Recent Fever Within 48 Hours Sepsis New/Unexplained Change in Mental Status Sepsis Action Taken by Nursing Pulse Rate 80 83 84 Pulse Rate from SpO2 Sensor 81 Pulse Rhythm Pulse Strength Respiratory Rate 17 24 Respiratory Effort / Characteristics Respiratory Depth Respiratory Pattern Blood Pressure Blood Pressure Mean Blood Pressure Position Pulse Oximetry 95 Oxygen Delivery Method 08/24/18 10:20 08/24/18 10:30 08/24/18 10:41 Temperature Temperature Source Sepsis Recent Fever Within 48 Hours Sepsis New/Unexplained Change in Mental Status Sepsis Action Taken by Nursing Pulse Rate 88 87 89 Pulse Rate from SpO2 Sensor Pulse Rhythm Pulse Strength Respiratory Rate 20 19 24 Respiratory Effort / Characteristics Respiratory Depth Respiratory Pattern Blood Pressure Blood Pressure Mean Blood Pressure Position Pulse Oximetry Oxygen Delivery Method 08/24/18 10:50 08/24/18 10:56 08/24/18 11:00 Temperature Temperature Source Sepsis Recent Fever Within 48 Hours Sepsis New/Unexplained Change in Mental Status Sepsis Action Taken by Nursing Pulse Rate 88 87 83 Pulse Rate from SpO2 Sensor 86 83 Pulse Rhythm Pulse Strength Respiratory Rate 15 20 17 Respiratory Effort / Characteristics Respiratory Depth Respiratory Pattern Blood Pressure 143/58 H 156/63 H Blood Pressure Mean 86 94 Blood Pressure Position Pulse Oximetry 96 95 Oxygen Delivery Method 08/24/18 11:01 08/24/18 11:10 08/24/18 11:20 Temperature Temperature Source Sepsis Recent Fever Within 48 Hours Sepsis New/Unexplained Change in Mental Status Sepsis Action Taken by Nursing Pulse Rate 83 83 82 Pulse Rate from SpO2 Sensor 83 84 82 Pulse Rhythm Pulse Strength Respiratory Rate 15 16 20 Respiratory Effort / Characteristics Respiratory Depth Respiratory Pattern Blood Pressure Blood Pressure Mean Blood Pressure Position Pulse Oximetry 96 95 93 Oxygen Delivery Method 08/24/18 11:30 08/24/18 11:31 08/24/18 11:40 Temperature Temperature Source Sepsis Recent Fever Within 48 Hours Sepsis New/Unexplained Change in Mental Status Sepsis Action Taken by Nursing Pulse Rate 86 88 85 Pulse Rate from SpO2 Sensor 87 92 H 85 Pulse Rhythm Pulse Strength Respiratory Rate 21 20 24 Respiratory Effort / Characteristics Respiratory Depth Respiratory Pattern Blood Pressure 139/86 Blood Pressure Mean 103 Blood Pressure Position Pulse Oximetry 92 94 94 Oxygen Delivery Method 08/24/18 11:50 08/24/18 12:00 08/24/18 12:10 Temperature Temperature Source Sepsis Recent Fever Within 48 Hours Sepsis New/Unexplained Change in Mental Status Sepsis Action Taken by Nursing Pulse Rate 83 84 80 Pulse Rate from SpO2 Sensor 82 84 81 Pulse Rhythm Pulse Strength Respiratory Rate 17 19 19 Respiratory Effort / Characteristics Respiratory Depth Respiratory Pattern Blood Pressure 122/66 Blood Pressure Mean 84 Blood Pressure Position Pulse Oximetry 94 95 93 Oxygen Delivery Method 08/24/18 12:20 08/24/18 12:30 08/24/18 12:31 Temperature Temperature Source Sepsis Recent Fever Within 48 Hours Sepsis New/Unexplained Change in Mental Status Sepsis Action Taken by Nursing Pulse Rate 85 84 82 Pulse Rate from SpO2 Sensor 85 84 82 Pulse Rhythm Pulse Strength Respiratory Rate 19 19 18 Respiratory Effort / Characteristics Respiratory Depth Respiratory Pattern Blood Pressure 129/85 Blood Pressure Mean 99 Blood Pressure Position Pulse Oximetry 94 94 94 Oxygen Delivery Method 08/24/18 12:40 Temperature Temperature Source Sepsis Recent Fever Within 48 Hours Sepsis New/Unexplained Change in Mental Status Sepsis Action Taken by Nursing Pulse Rate 83 Pulse Rate from SpO2 Sensor 83 Pulse Rhythm Pulse Strength Respiratory Rate 15 Respiratory Effort / Characteristics Respiratory Depth Respiratory Pattern Blood Pressure Blood Pressure Mean Blood Pressure Position Pulse Oximetry 94 Oxygen Delivery Method General: Non-ill appearing 82 year old female in no acute distress. Chronically ill appearing that complains of right upper quadrant pain. HEENT: Normal cephalic atraumatic. Pupils are equal round and reactive to light. Extraocular movements are intact. Oropharynx is pink with moist mucous membranes. No swelling of the mouth lips or tongue. Neck: Supple with a midline trachea. No meningeal signs or stiffness, no JVD or bruits. No Stridor. Chest: Clear to auscultation bilaterally. No wheezes or rhonchi. No increased work of breathing. Heart: regular rate and rhythm. Abdomen: moderately tender at upper right quadrant, nondistended without rebound guarding or rigidity. Extremities: No cyanosis clubbing or edema. No calf tenderness or asymmetry Spine/Back. Non tender to palpation. No CVA tenderness Skin: Good turgor without rashes. Neurologic exam: Cranial nerves two through 12 are intact. Motor and sensation are intact and symmetrical throughout. Course 8:47: I reviewed this case with the assigned resident and discussed possible plans of action before doing my own assessment. 8:53: Past medical records reviewed. The patient was evaluated in room A11. A complete history and physical exam was performed. 9:28: I talked to pharmacy and ordered in the patients morning medication. 10:33: I reevaluated the patient who seems comfortable. 12:00: I reviewed the patient's case with Dr.Stevens Dodge [facility] Hospitalist. She will evaluate the patient for further management 12:28 I discussed the patient's findings and tentative treatment plan with the family. Consultations Consultation #1: I reviewed the patient's case with Dr.Stevens Dodge [facility] Hospitalist. She will evaluate the patient for further management Time: 12:00 Administered Medications Ioversol (Optiray 320 125ml) 120 ml IV ONCE PRN PRN Reason: Interaction Checking Stop: 08/28/18 10:41 Last Admin: 08/24/18 10:43 Dose: 120 ml Documented by: [id number] Discontinued Medications Diphenhydramine HCl (Benadryl) 25 mg IV NOW STA Stop: 08/24/18 09:44 Last Admin: 08/24/18 09:51 Dose: 25 mg Documented by: [id number] Sodium Chloride (Nss 1000ml) 500 mls @ 999 mls/hr IV .Q31M ONE Stop: 08/24/18 09:25 Last Infusion: 08/24/18 09:51 Dose: 0 mls/hr Documented by: [id number] Admin: 08/24/18 09:14 Dose: 999 mls/hr Documented by: [id number] Methylprednisolone (Solumedrol) 125 mg IV NOW STA Stop: 08/24/18 09:44 Last Admin: 08/24/18 09:52 Dose: 125 mg Documented by: [id number] Morphine Sulfate (Morphine Sulfate) 2 mg IV NOW STA Stop: 08/24/18 09:04 Last Admin: 08/24/18 09:15 Dose: 2 mg Documented by: [id number] Oxycodone HCl (Oxycontin) 20 mg PO ONE ONE Stop: 08/24/18 11:46 Last Admin: 08/24/18 12:06 Dose: 20 mg Documented by: [id number] Pregabalin (Lyrica) 50 mg PO ONE ONE Stop: 08/24/18 11:01 Last Admin: 08/24/18 11:14 Dose: 50 mg Documented by: [id number] Medical Decision Making Differential Diagnosis Differential diagnosis includes: acute coronary disease, infection, liver disease, cancer, electrolyte and metabolic abnormalities as well as others were considered. Medical Records Attestation: I reviewed the patient's medical records. Home Medications Current Medication List: was personally reviewed by me Laboratory Data Attestation: I reviewed the patient's lab results. Result diagrams: 08/24/18 08:59 08/24/18 08:59 Lab Results 08/24/18 08/24/18 08/24/18 Range/Units 08:59 08:59 08:59 WBC 11.38 H (4.8-10.8) K/uL RBC 4.19 L (4.2-5.4) M/uL Hgb 11.6 L (12.0-16.0) g/dL Hct 36.3 L (37-47) % MCV 86.6 (80-100) fL MCH 27.7 (25-34) pg MCHC 32.0 (32-36) g/dL RDW Std Deviation 44.3 (36.4-46.3) fL RDW Coeff of Cha 14.1 (11.5-14.5) % Plt Count 149 (130-400) K/uL MPV 12.4 H (7.4-10.4) fL Immature Gran % (Auto) 0.4 % Neut % (Auto) 81.7 % Lymph % (Auto) 8.4 % Bracken % (Auto) 9.2 % Eos % (Auto) 0.2 % Baso % (Auto) 0.1 % Immature Gran # (Auto) 0.04 H (0.00-0.02) K/uL Neut # (Auto) 9.30 H (1.4-6.5) K/uL Lymph # (Auto) 0.96 L (1.2-3.4) K/uL Bracken # (Auto) 1.05 H (0.11-0.59) K/uL Eos # (Auto) 0.02 (0-0.5) K/uL Baso # (Auto) 0.01 (0-0.2) K/uL PT 10.6 (9.0-12.0) Seconds INR 1.0 (0.9-1.1) APTT 29.8 (21.0-31.0) Seconds PTT Ratio 1.1 Sodium 134 L (136-145) mmol/L Potassium 4.1 (3.5-5.1) mmol/L Chloride 99 (98-107) mmol/L Carbon Dioxide 28 (21-32) mmol/L Anion Gap 6.0 (3-11) BUN 17 (7-18) mg/dl Creatinine 0.94 (0.6-1.2) mg/dl Est Cr Clr Drug Dosing 48.8 ml/min Est GFR ( Amer) 64.6 Est GFR (Non-Af Amer) 55.7 BUN/Creatinine Ratio 18.1 (10-20) Glucose 246 H (70-99) mg/dl Calcium 9.2 (8.5-10.1) mg/dl Total Bilirubin 1.0 (0.2-1) mg/dl AST 71 H (15-37) U/L ALT 80 H (12-78) U/L Alkaline Phosphatase 836 H (45-117) U/L Troponin I < 0.015 (0-0.045) ng/ml Total Protein 7.3 (6.4-8.2) gm/dl Albumin 2.4 L (3.4-5.0) gm/dl Globulin 4.9 H (2.5-4.0) gm/dl Albumin/Globulin Ratio 0.5 L (0.9-2) Lipase 71 L (73-393) U/L Imaging Data Radiologist's Impression: Radiology results as stated below per my review and the radiologist's interpretation: XR chest 1V portable CLINICAL HISTORY: Atypical chest pain COMPARISON STUDY: 06/11/2018 FINDINGS: The cardiac and mediastinal contours remain stable. There is borderline elevation the right hemidiaphragm. There is no failure. There is no focal pulmonary consolidation. There are no pleural effusions.[ IMPRESSION: No active disease in the chest. Electronically signed by: Tripp Parks M.D. 08/24/2018 9:[address] ANGIOGRAM OF THE CHEST CLINICAL HISTORY: Atypical chest pain. Possible pulmonary embolism. COMPARISON STUDY: Chest x-ray dated 08/24/2018 TECHNIQUE: Following the IV administration of 120 mL of Optiray-320, CT angiogram of the thorax was performed from the thoracic inlet to the lung bases utilizing the pulmonary embolus protocol. Images are reviewed in the axial, sagittal, and coronal planes. IV contrast was administered without complication. MIP imaging was performed. A dose lowering technique was utilized adhering to the principles of ALARA. CT DOSE: 1765.85 mGy.cm FINDINGS: The visualized portions the upper abdomen reveal a 6 cm lobulated hepatic mass. There is a biliary stent present. No pathologically enlarged axillary mediastinal or hilar lymph nodes were visualized. There was no evidence of thoracic aortic dilatation. There were no pulmonary artery filling defects to indicate acute pulmonary e mbolism. No pleural effusions are visualized. There are mild dependent atelectatic changes. There is no focal pulmonary consolidation. There are scattered tiny pulmonary nodules, many of which are c alcified. Although nonspecific a postinflammatory etiology is deemed most likely. IMPRESSION: 1. No evidence of acute pulmonary embolism 2. No evidence of focal pulmonary consolidation 3. 6 cm hepatic mass Electronically signed by: Tripp Parks M.D. 08/24/2018 10:[address] abd pelvis IV con only CLINICAL HISTORY: Right upper quadrant abdominal pain COMPARISON STUDY: CT scan dated 06/11/2018 TECHNIQUE: The patient was scanned in a dynamic helical fashion during intravenous administration of 1 20 cc of Optiray 320 A dose lowering technique was utilized adhering to the principles of ALARA. CT DOSE: FINDINGS: Lower chest: There are coronary artery calcifications present. Liver: There is mild intrahepatic biliary ductal dilatation. There is pneumobilia present. There is an indwelling biliary enteric stent. There is an enlarging 7 cm right lobe hepatic mass. The liver has a cirrhotic morphology. Gallbladder: Surgically absent Spleen: Normal in size and attenuation. Pancreas: There is no significant ductal dilatation. There are multiple cystic lesions within the pancreatic head and neck measuring up to 1 cm diameter. 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 Kidneys: There is a nonobstructing lower pole right renal calculus. No solid renal masses are visualized. There is mild dilatation of both renal collecting systems and ureters. There is mild uroepithelial enhancement. Infection cannot be excluded Bowel: There are no transition zones indicate bowel obstruction. There is no evidence of acute diverticulitis. There are no findings to indicate acute appendicitis. Peritoneum: There is no intraperitoneal free air or abdominal ascites. Vasculature: The abdominal aorta is normal in course and caliber. Adenopathy: None. Pelvic viscera: The uterus appears mildly atrophic. There is a paravaginal/la bial cyst versus urine reflux. Skeletal structures: Moderately advanced degenerative changes are present within the lumbar spine. IMPRESSION: 1. Enlarging 7 cm segment 5 hepatic mass. 2. Hepatic cirrhosis 3. Mild intra and extrahepatic biliary ductal dilatation. There is an indwelling biliary enteric stent, and there is pneumobilia suggesting stent patency 4. Nonobstructing lower pole right renal calculus 5. Mild dilatation of both renal collecting systems and ureters. There is bilateral uroepithelial enhancement. This could indicate a urinary tract infection and clinical correlation in this regard is advocated 6. No evidence of bowel obstruction. No evidence of free air Electronically signed by: Tripp Parks M.D. 08/24/2018 11:04 AM ECG Data Attestation: I personally reviewed and interpreted this ECG as follows: Indication: abdominal pain Rate (beats per minute): 81 Findings: + RBBB; no acute ischemic change Comparison ECG Date: from (06/11/18) Change: no significant change Blood Pressure Blood Pressure Findings: Normal blood pressure MDM Narrative This patient comes in as described above. She was placed in room A11. She had chest pain and took 2 nitroglycerin and got better now she has right-sided abdominal pain. She has had liver issues with a liver mass in the past. She was seen in [facility] and sounds like she had some sort of embolization or surgery then. IV access established and multiple blood testing was obtained she has no white count or fever to suggest infection. EKG does not suggest acute coronary syndrome. Her she has normal renal function. It is listed that she is allergic to IV contrast however last time she was here she did have IV contrast successfully after being premedicated. I did premedicate her with Solu-Medrol 125 mg IV as well as Benadryl 25 mg IV which is the same regimen she had last time. She tolerated this well. The chest CT shows no evidence of PE. There is a liver mass that does look larger than the previous CT. She has no acute electrolyte or metabolic abnormalities. Her initial cardiac work-up was unremarkable but given her chest pain, I do think she needs to be admitted/observed for a cardiac work-up. We did consult Dr. Downing to see her in the ER for these measures. Impression & Plan Left-sided chest pain, Right upper quadrant abdominal pain, Liver mass, Weakness Discharge Plan Visit Data *Final* Discharge Date/Time: 08/24/18 13:35 Chief Complaint: Abdominal Pain Stated Complaint: chest pain ED Provider: Ancelmo Escobar ED Midlevel Provider: Yolie Hernandez Discharge Problem: Left-sided chest pain, Right upper quadrant abdominal pain, Liver mass, Weakness Patient Disposition: Admitted As Inpatient Discharge Instructions Interventions: ED Discharge Assessment Last Done: 08/24/18 13:35 The scribe's documentation has been prepared under my direction and personally reviewed by me in its entirety. I confirm that the note above accurately reflects all work, treatment, procedures, and medical decision making performed by me.
--- NOTE | 2018-08-24 11:06 | CT Scan Report ---
CT abd pelvis IV con only CLINICAL HISTORY: Right upper quadrant abdominal pain COMPARISON STUDY: CT scan dated 06/11/2018 TECHNIQUE: The patient was scanned in a dynamic helical fashion during intravenous administration of 1 20 cc of Optiray 320 A dose lowering technique was utilized adhering to the principles of ALARA. CT DOSE: FINDINGS: Lower chest: There are coronary artery calcifications present. Liver: There is mild intrahepatic biliary ductal dilatation. There is pneumobilia present. There is a n indwelling biliary enteric stent. There is an enlarging 7 cm right lobe hepatic mass. The liver has a cirrhotic morphology. Gallbladder: Surgically absent Spleen: Normal in size and attenuation. Pancreas: There is no significant ductal dilatation. There are multiple cystic lesions within the cooley creatic head and neck measuring up to 1 cm diameter. 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 Kidneys: There is a nonobstructing lower pole right renal calculus. No solid renal masses are visuali zed. There is mild dilatation of both renal collecting systems and ureters. There is mild uroepitheli al enhancement. Infection cannot be excluded Bowel: There are no transition zones indicate bowel obstruction. There is no evidence of acute divert iculitis. There are no findings to indicate acute appendicitis. Peritoneum: There is no intraperitoneal free air or abdominal ascites. Vasculature: The abdominal aorta is normal in course and caliber. Adenopathy: None. Pelvic viscera: The uterus appears mildly atrophic. There is a paravaginal/labial cyst versus urine r eflux. Skeletal structures: Moderately advanced degenerative changes are present within the lumbar spine. IMPRESSION: 1. Enlarging 7 cm segment 5 hepatic mass. 2. Hepatic cirrhosis 3. Mild intra and extrahepatic biliary ductal dilatation. There is an indwelling biliary enteric sten t, and there is pneumobilia suggesting stent patency 4. Nonobstructing lower pole right renal calculus 5. Mild dilatation of both renal collecting systems and ureters. There is bilateral uroepithelial enh ancement. This could indicate a urinary tract infection and clinical correlation in this regard is ad vocated 6. No evidence of bowel obstruction. No evidence of free air Electronically signed by: Tripp Parks M.D. 08/24/2018 11:04 AM
[2018-08-24] MEDS ORDERED: OXYCODONE HCL 20 MG TABCR (OXYCONTIN) PO ONE (11:45)
--- NOTE | 2018-08-24 12:57 | History & Physical Report ---
Date of Service August 24, 2018 Assessment & Plan (1) Left-sided chest pain: Uncertain etiology, concerning in the setting of stenting x6 and resolution with nitro Last stent was 2003 Trop neg x1, serials pending EKG WNL CXR and CTA neg for acute Possibly some demand ischemia given heat and humidity in the setting of afib--pt has been having issues with LE swelling and mild SOB the last few days Monitor on tele CBC, PRP WNL t/c ECHO if repeat episodes or trop elevation (2) Liver mass: Family states that pt was told this was not a mass, but scarring from her prior cancer Advised f/u next week with GI to compare imaging done at [facility] as we do not have access to this Advised to take disc on d/c to take to [facility] in case of need for f/u sooner than already scheduled for October R sided pain may be related to increased size of liver lesion vs scar tissue Resolves with prochlorperazine Stent noted to be patent on CTAP Of note: CTAP does show a nonobstructing R sided renal stone which could be contributing to pain as well. It seems less likely that pain from a stone with resolve with prochlorperazine however (3) Depression: continue home meds (4) Coronary artery disease: continue home meds Hx of stents x6, last 2003 (5) Hypertension: continue home meds (6) GERD (gastroesophageal reflux disease): continue home meds (7) Diabetes mellitus, type 2: continue home meds SSI PRN (8) Diabetic neuropathy: continue home meds (9) Parkinson's disease: continue home meds (10) Recurrent urinary tract infection: Doxy 100mg BID Was to f/u with PCP next week for UA UA pending (11) Atrial fibrillation: continue home meds Has been off of anticoagulation for many years per family Does take aspirin 81mg as noted above for CAD/stents (12) Iron deficiency: continue home meds (13) DVT prophylaxis: SCDs History of Present Illness Primary Care Provider: Krishna Villanueva 82 y/o F c/o chest and abd pain. Pt states that the chest pain woke her around 2am. It was L sided but not radiating anywhere. She took a nitro and it resolved. She had a repeat episode that was similar but less intense around 4a. She took another nitro and it also resolved. She states that this chest pain was different from when she has required stents in the past. She has had no further chest pain. Around 5:30a pt started having R sided abd pain along entire lateral R side. She has never had pain like this prior. No n/v/c/d. She states she has been having these pains on and off the last 3-4 days. Sometimes it is after eating, sometimes several hours s/p PO. She takes prochlorperazine when she has these pains and it resolves. Family states that pt has been more weak the last few days. She has had issues with some SOB at rest that resolves spontaneously. She has had issues with LE swelling, although there is none present today. Pt was transferred from [facility] to [facility] on 06/07 due to a liver mass that was concerning for bleeding. Pt has hx of colon ca with liver mets. She had been cancer free for 7 years. She was transferred to [facility], however family states that she did not end up needing a procedure for her liver. They were told that this mass that had been seen on imaging here was scarring and not active cancer. She has a f/u in [facility] in October. She follows with Dr. Machuca for GI locally, but does not have local oncology. Pt states that she does feel better now than when she came to the ED s/p pain medication. Allergies Allergy/AdvReac Type Severity Reaction Status Date / Time Iodinated Contrast- Oral and Allergy Intermediate IV Verified 08/24/18 08:49 IV Dye CONTRAST- HIVES mivacurium Allergy Mild dizzy, Verified 08/24/18 08:49 nauseous (per patient) Bactrim Allergy Unknown patient Verified 09/21/16 05:17 unsure Cipro Allergy Unknown unknown Verified 09/21/16 05:17 ciprofloxacin Allergy Unknown unknown Verified 08/24/18 08:49 nitrofurantoin Allergy Unknown unknown Verified 08/24/18 08:49 sulfamethoxazole Allergy Unknown patient Verified 08/24/18 08:49 unsure trimethoprim Allergy Unknown patient Verified 08/24/18 08:49 unsure acarbose AdvReac Mild GI SYMPTOMS Verified 08/24/18 08:49 insulin glargine AdvReac Mild "Very ill" Verified 08/24/18 08:49 [From Lantus U-100 Insulin] - see comments metformin AdvReac Mild GI SYMPTOMS Verified 08/24/18 08:49 Penicillins AdvReac Mild dizzy, Verified 08/24/18 08:49 nausous (per patient) tolerated zosyn [id number] troglitazone AdvReac Mild GI SYMPTOMS Verified 08/24/18 08:49 Home Medications Home Medications Medication Instructions Recorded Confirmed Type Lyrica 50 mg PO TID 06/11/18 08/24/18 History ascorbic acid (vitamin C) 500 mg PO DAILY 06/11/18 08/24/18 History carvedilol 6.25 mg PO BID 06/11/18 08/24/18 History docusate sodium 100 mg PO BID 06/11/18 08/24/18 History ferrous sulfate 325 mg PO DAILY 06/11/18 08/24/18 History folic acid 1 mg PO DAILY 06/11/18 08/24/18 History magnesium oxide 400 mg PO DAILY 06/11/18 08/24/18 History nitroglycerin See Rx Instructions .ROUTE .COMPLEX 06/11/18 08/24/18 History oxycodone 5 mg PO Q6 PRN 06/11/18 08/24/18 History oxycodone [OxyContin] 20 mg PO Q12H 06/11/18 08/24/18 History pantoprazole 40 mg PO DAILY 06/11/18 08/24/18 History polyethylene glycol 3350 [GlycoLax] 17 g PO DAILY 06/11/18 08/24/18 History prochlorperazine maleate 10 mg PO TID PRN 06/11/18 08/24/18 History sucralfate 1 g PO QID 06/11/18 06/11/18 History trazodone 50 mg PO BID 06/11/18 06/11/18 History venlafaxine 37.5 mg PO DAILY 06/11/18 08/24/18 History sodium chloride 0.9 % 80 ml CONTINUOUS IV INFUSION Q1H 06/12/18 08/24/18 Rx #1200 ml aspirin [Aspirin Low Dose] 81 mg PO DAILY 08/24/18 08/24/18 History atorvastatin 40 mg PO DAILY 08/24/18 08/24/18 History carbidopa-levodopa 2 tab PO TID 08/24/18 08/24/18 History doxycycline hyclate 100 mg PO BID 08/24/18 08/24/18 History insulin aspart (niacinamide) 6 unit SUBCUT TIDM 08/24/18 08/24/18 History [Fiasp FlexTouch U-100 Insulin] insulin degludec [Tresiba 36 unit SUBCUT QAM 08/24/18 08/24/18 History FlexTouch U-200] isosorbide mononitrate 30 mg PO DAILY 08/24/18 08/24/18 History Past Med/Surg History Medical History Coronary artery disease (Chronic) "s/p PCI ? [place]" Hypertension (Chronic) GERD (gastroesophageal reflux disease) (Chronic) Diabetes mellitus, type 2 (Chronic) Diabetic neuropathy (Chronic) Parkinson's disease (Chronic) Recurrent urinary tract infection (Chronic) Chronic pain syndrome (Chronic) "arthritis + neuropathy" Atrial fibrillation (Chronic) "per old records" Surgical History Status post cardiac catheterization (Chronic) Status post coronary artery stent placement (Chronic) Status post cholecystectomy (Chronic) Family History Other Myocardial infarction Social History Preferred Language: Icelandic Communication Ability: Effective Beliefs That Will Affect Care: None Current Living Situation: Family Current Living Situation Comment: Patient drowsy/ unable to answer at this time Feels Safe at Home: Yes Smoking Status: Never smoker Hx Alcohol Use: No Hx Substance Use: No Review of Systems Review of Systems: Pertinent positives and negatives reviewed in HPI--all others negative Physical Exam Constitutional: WD/WN, vitals as above Eyes: normal visual garg by confrontation and + anicteric sclerae Neck: normal visual inspection and trachea midline Respiratory: normal respiratory effort, lungs clear to auscultation Cardiovascular: Rate/Rhythm: regular rate and regular rhythm Gastrointestinal (Abdomen): Inspection/Auscultation: abdomen not distended Percussion/Palpation: + abdomen tender (minimally along R lateral abd) and abdomen soft Musculoskeletal: Head/Neck/Chest: normocephalic and head atraumatic negative for edema, peripheral pulses intact Skin: no rashes, warm and dry Neurologic: awake; not confused Speech / Cognition: normal speech Psychiatric: A+Ox3, euthymic affect slightly groggy s/p oxycodone Results & Data Vital Signs (Past 12 Hours) Vital Signs Temp Pulse Resp BP Pulse Ox 08/24/18 11:10 83 16 95 08/24/18 11:01 83 15 96 08/24/18 11:00 83 17 156/63 H 95 08/24/18 10:56 87 20 143/58 H 96 08/24/18 10:50 88 15 08/24/18 10:41 89 24 08/24/18 10:30 87 19 08/24/18 10:20 88 20 08/24/18 10:10 84 24 08/24/18 10:03 83 17 08/24/18 09:50 80 95 08/24/18 09:40 81 95 08/24/18 09:32 85 133/57 L 96 08/24/18 09:30 81 95 08/24/18 09:20 84 95 08/24/18 09:10 83 96 08/24/18 09:07 85 147/62 H 96 08/24/18 09:00 86 95 08/24/18 08:50 87 16 95 08/24/18 08:40 90 16 94 08/24/18 08:38 84 17 96 08/24/18 08:30 36.9 C 90 20 162/80 H 96 08/24/18 08:25 87 18 162/80 H 95 Diagnostic Findings CXR: neg for acute CTA: neg for PE/PNA, hepatic mass noted CTAP: 1. Enlarging 7 cm segment 5 hepatic mass. 2. Hepatic cirrhosis 3. Mild intra and extrahepatic biliary ductal dilatation. There is an indwelling biliary enteric stent, and there is pneumobilia suggesting stent patency 4. Nonobstructing lower pole right renal calculus 5. Mild dilatation of both renal collecting systems and ureters. There is bilateral uroepithelial enhancement. This could indicate a urinary tract infection and clinical correlation in this regard is advocated 6. No evidence of bowel obstruction. No evidence of free air ECG Change: no significant change Code Status & VTE Plan Code Status Full code VTE Prophylaxis Plan VTE Prophylaxis will be ordered: Yes PG Care Time/CCT Total # of Minutes Spent Total Time Spent with Patient: Total time spent is greater than 50% in coordination of care (as documented) at patient's floor/unit and/or counseling patient:
[2018-08-24 13:44] LABS: Appearance Urine Turbid (Clear); Bacteria Urine Automated 1+ (Negative); Bilirubin Urine Negative (Negative); Blood Urine 1+ (Negative); Color Urine Yellow; Epithelial Cell Urine Auto >30 /lpf (0-5); Glucose Urine UA Negative (Negative); Ketones Urine Negative (Negative); Leukocyte Esterase Urine 3+ (Negative); Nitrite Urine Negative (Negative); Protein Urine Trace (Negative); Specific Gravity Urine 1.036 (1.000-1.030); Urobilinogen Urine Negative (Negative); WBC Urine Automated >30 /hpf (0-5); pH Urine 6.5 (4.5-7.5)
[2018-08-24 13:54] LABS: Cast Urine Automated 0 /lpf (0-5)
[2018-08-24] MEDS ORDERED: GLUCAGON FOR INJ 1 MG VIAL SQ PRN (13:55)
[2018-08-24] MEDS ORDERED: GLUCOSE 40% GEL 15 GM TUBE PO PRN (13:55)
[2018-08-24] MEDS ORDERED: ONDANSETRON INJ 2 MG/ML 2 ML VIAL IV PRN (13:55)
[2018-08-24] MEDS ORDERED: GLUCOSE 10 TABS/TUBE PO PRN (13:55)
[2018-08-24] MEDS ORDERED: OXYCODONE HCL IR 5 MG TAB (IMMEDIATE RELEASE) PO PRN (13:55)
[2018-08-24] MEDS ORDERED: MAGNESIUM HYDROXIDE SUSP 30 ML UDC PO PRN (13:55)
[2018-08-24] MEDS ORDERED: ACETAMINOPHEN 325 MG TAB PO PRN (13:55)
[2018-08-24] MEDS ORDERED: PROCHLORPERAZINE MALEATE 10 MG TAB PO PRN (13:55)
[2018-08-24] MEDS ORDERED: NITROGLYCERIN SL 0.4 MG/TAB TAB SL PRN (13:55)
[2018-08-24] MEDS ORDERED: CARBOHYDRATES FOR HYPOGLYCEMIA PO PRN (13:55)
[2018-08-24] MEDS ORDERED: DEXTROSE 50% 50 ML SYRINGE IV PRN (13:55)
[2018-08-24] MEDS: [UNRECOGNIZED DRUG - OTHER] continuous IV infusion SCH ×2 (15:21→15:29)
[2018-08-24] MEDS: SODIUM CHLORIDE 0.9% continuous IV infusion SCH ×2 (15:21→15:29)
[2018-08-24] MEDS: INSULIN ASPART 100 UNITS/ML 3 ML PEN SC SCH ×4 (15:22→23:10)
[2018-08-24] MEDS: CARBIDOPA/LEVODOPA 25/100MG TAB PO SCH ×2 (15:23→21:45)
[2018-08-24] MEDS: SUCRALFATE 1 GM TAB PO SCH ×3 (15:24→21:45)
[2018-08-24] MEDS: PREGABALIN 50 MG CAP PO SCH ×2 (15:29→21:44)
[2018-08-24] MEDS ORDERED: INSULIN ASPART U SQ SCH (17:00)
[2018-08-24] MEDS: DOXYCYCLINE HYCLATE 100 MG CAP PO SCH (18:37)
[2018-08-24] MEDS ORDERED: NovoLIN-R INSULIN PER UNIT CHARGE IV STA (20:16)
[2018-08-24] MEDS ORDERED: INSULIN HUMAN REGULAR PER UNIT 5 UNITS in SYRINGE 4.95 ML IV ONE (20:45)
[2018-08-24] MEDS ORDERED: INSULIN DETEMIR PER UNIT CHARGE SC ONE (21:00)
[2018-08-24] MEDS: CARVEDILOL 6.25 MG TAB PO SCH (21:44)
[2018-08-24] MEDS: DOCUSATE SODIUM 100 MG CAP PO SCH (21:44)
[2018-08-24] MEDS: TRAZODONE HCL 50 MG TAB PO SCH (21:45)
[2018-08-24] MEDS: OXYCODONE HCL 20 MG TABCR (OXYCONTIN) PO SCH (23:05)
[2018-08-25] MEDS: INSULIN ASPART 100 UNITS/ML 3 ML PEN SC SCH ×5 (04:16→20:43)
[2018-08-25] MEDS: DOXYCYCLINE HYCLATE 100 MG CAP PO SCH ×2 (05:54→20:39)
[2018-08-25] MEDS: ISOSORBIDE MONO EXTENDED REL 30 MG TABCR PO SCH (07:46)
[2018-08-25] MEDS: MAGNESIUM OXIDE 400 MG TAB PO SCH (07:47)
[2018-08-25] MEDS: VENLAFAXINE HCL XR 37.5 MG CAPXR PO SCH (07:47)
[2018-08-25] MEDS: ASCORBIC ACID 500 MG TAB PO SCH (07:47)
[2018-08-25] MEDS: ATORVASTATIN 40 MG TAB PO SCH (07:47)
[2018-08-25] MEDS: POLYETHYLENE (MIRALAX) 17 GM PACK PO SCH (07:47)
[2018-08-25] MEDS: FOLIC ACID 1 MG TAB PO SCH (07:47)
[2018-08-25] MEDS: CARVEDILOL 6.25 MG TAB PO SCH ×2 (07:47→20:38)
[2018-08-25] MEDS: SUCRALFATE 1 GM TAB PO SCH ×4 (07:47→20:38)
[2018-08-25] MEDS: ASPIRIN 81 MG ECTAB PO SCH (07:47)
[2018-08-25] MEDS: DOCUSATE SODIUM 100 MG CAP PO SCH ×2 (07:47→20:42)
[2018-08-25] MEDS: FERROUS SULFATE 325 MG TAB PO SCH (07:47)
[2018-08-25] MEDS: TRAZODONE HCL 50 MG TAB PO SCH ×2 (07:47→20:38)
[2018-08-25] MEDS: PANTOprazole 40 MG TAB PO SCH (07:47)
[2018-08-25] MEDS: CARBIDOPA/LEVODOPA 25/100MG TAB PO SCH ×3 (07:47→20:38)
[2018-08-25] MEDS: OXYCODONE HCL 20 MG TABCR (OXYCONTIN) PO SCH ×2 (07:52→20:38)
[2018-08-25] MEDS: PREGABALIN 50 MG CAP PO SCH ×3 (07:52→20:39)
[2018-08-25 08:46] LABS: Hematocrit (blood only) 38.6 % (37-47); Hemoglobin 12.4 g/dL (12.0-16.0); Mean Corpuscular Hgb Conc 32.1 g/dL (32-36); Mean Corpuscular Volume 86.7 fL (80-100); Mean Platelet Volume 12.7 fL (7.4-10.4); Platelet Count 167 K/uL (130-400); RDW Coefficient of Variation 13.9 % (11.5-14.5); RDW Standard Deviation 43.9 fL (36.4-46.3); Red Blood Count 4.45 M/uL (4.2-5.4)
[2018-08-25] MEDS ORDERED: INSULIN DEGLUDEC 36 UNIT SQ SCH (09:00)
[2018-08-25 09:04] LABS: BUN Creatinine Ratio 24.2 (10-20); Calcium 10.4 mg/dl (8.5-10.1); Creatinine Clr Calc Pharmacy 46.8 ml/min; Est GFR (African American) 59.9; Est GFR (Non-African American) 51.7; Potassium 3.8 mmol/L (3.5-5.1)
[2018-08-25] MEDS ORDERED: PHARMACY GLYCEMIC MGMT CONSULT SCH (09:09)
--- NOTE | 2018-08-25 09:51 | Pharmacy Report ---
Glycemic Control Consultation - Date of Service August 25, 2018 - Scope Scope: Glycemic Pharmacist consulted by Sapna Sandhu PA-C on 08/25/18 for glycemic control and to write orders per [facility] inpatient glycemic control protocol - Objective Weight: 91.5 kg Accuchecks BSG (last 24hrs): 08/24/18 08/24/18 08/24/18 14:12 16:51 16:52 Glucose POC Glucose 268 H 372 H* 360 H* 08/24/18 08/24/18 08/24/18 20:04 20:05 21:41 Glucose POC Glucose 363 H* 349 H* 271 H 08/24/18 08/25/18 08/25/18 23:08 04:11 07:38 Glucose POC Glucose 247 H 203 H 173 H 08/25/18 08:09 Glucose 159 H POC Glucose Laboratory Data (last 24hrs): 08/25/18 08:09 Potassium 3.8 Carbon Dioxide 31 Anion Gap 6.0 Creatinine 1.00 Est Cr Clr Drug Dosing 46.8 - Recent Pertinent Medications Outpatient Anti-diabetic Regimen: * Insulin degludec (Tresiba) 36 units SQ QAM * Insulin aspart (Fiasp) 6 units TID with meals * A1c = 8.0 % 02/17/16 The patient is currently receiving: * Basal insulin: Levemir 36 units x 1 dose last night * Correctional Insulin: Novolog Correction per scale ACHS Goal Range: Low 110 mg/dL - High 140 mg/dL Correction Factor: 12 mg/dL/unit * Prandial insulin: Per carb ratio of 1 unit per 5 grams CHO consumed Risk Factors for Insulin Resistance: * Steroids: Solu-medrol 125mg IV x1 dose in ER yesterday at 0900 * Diet: Type 2 DM - Assessment & Plan Assessment & Plan: ASSESSMENT: * 82 year old female admitted with chest pain, abdominal pain, liver mass, hx colon cancer with mets to liver. * Type 2 diabetic with allergy to Lantus, hyperglycemic d/t IV steroids given in ED yesterday morning. * Patient given 1 time dose of Levemir last night of 36 units (home dose of basal insulin), daughter to bring in her own insulin this afternoon. * Will restart home insulin degludec today as soon as it is brought in and then SQ daily starting tomorrow morning to move administration time back to AM and to cover steroid effects. * Continue CF and CR until seeing steroids wear off/ blood sugars trending down. PLAN FOR INPATIENT GLYCEMIC CONTROL: * Basal insulin * Patient's Own Med - Insulin degludec 36 units SQ Daily, restart this afternoon * Bolus insulin * NovoLog per scale ACHS or Q6hrs while NPO * Goal Range: Low 110 mg/dL - High 140 mg/dL * Correction Factor: 12 mg/dL/unit * Nutritional / Prandial insulin per carb ratio of 1 unit per 5 grams CHO consumed * Please note that the plan above was derived based on current level of insulin resistance and hospital stress. These recommendations are appropriate for inpatient admission only. Plan of care upon discharge will need to be reassessed to avoid potential outpatient hypo/hyperglycemia. Thank you.
--- NOTE | 2018-08-25 13:04 | Hospitalist Progress Note ---
Date of Service August 25, 2018 Assessment & Plan (1) Left-sided chest pain: - Chest pain now resolved since admission; unclear etiology -- GERD vs. demand ischemia vs. A. fib vs. other. - Significant cardiac history, follows with [facility] in [place]; cardiology consulted, appreciate input. - EKG was negative; Trop x 3 also negative. - CXR and CT PE negative. - Continue cardiac monitoring - may be related to A. fib episodes. - TTE pending to evaluate EF, wall motion abnormalities. - Continue cardiac meds as prescribed. (2) Shortness of breath: - Has been stable on room air; unclear etiology -- may be related to cardiac event vs. underlying HF. - CXR and CTA were negative on admission. - BNP was WNL; Echo is pending to evaluate EF. (3) Coronary artery disease: - Follows with cardiology, [facility]. - Continue aspirin, statin, beta marvin, imdur as prescribed. - Significant cardiac history, 6 stents. - Cardiac work up as noted above. (4) Liver mass: - H/o TACE procedure, follows at [facility]. Recently transferred to [facility] due to concern for bleeding liver mass -- per [facility], was likely scarring with no evidence of bleeding. - Did have right sided abd pain at admission -- now resolved. - CT A/P showed enlarging right liver mass compared to prior images. - Will need to burn disc with imaging studies at discharge and schedule close follow up with physician in [place]. - S/p CBD stent placement on 06/12/18 -- will need to follow up with GI as scheduled at end of this month to discuss removal. Family has requested GI consult as inpt for procedure, will continue to re-address. (5) Depression: - Continue Effexor as prescribed. (6) Hypertension: - Continue Coreg and and Imdur as prescribed. (7) Diabetes mellitus, type 2: - Hgb A1C was 12.4. - Holding home insulin; consulted pharmacy for glycemic management due to uncontrolled levels. (8) Diabetic neuropathy: - Continue home meds. (9) Parkinson's disease: - Continue home Sinemet as prescribed. (10) Recurrent urinary tract infection: - Recently diagnosed, started on Doxy as outpatient. - UC on 08/24 +gram negative bacilli, will follow up. (11) Atrial fibrillation: - Continue Coreg as prescribed. - On rn cardiac cath. - Not on anticoagulation per family. (12) Iron deficiency: - Continue home ferrous sulfate daily. (13) Chronic pain syndrome: - Continue Oxycontin 20 mg q12hr. (14) GERD (gastroesophageal reflux disease): - PPI daily. (15) Colon cancer: - H/o, follows at [facility]. (16) Electrolyte abnormality: - Ca level was 10.4, ICal was WNL -- will continue to monitor. - No evidence of andressa metastasis on imaging. (17) DVT prophylaxis: - SCDs. Heparin 5,000 units q12hr. Dispo: Med/surg with tele for evaluation of chest pain. Will need PT/OT evaluation prior to discharge. Supervising Physician Co-Signing Physician Notes Attending Attestation - Chart reviewed in detail, care plan d/w PA Sapna Carver. I agree w/ the smith components of her documentation. Complicated 82yo female - well known to Ms Carver and I from her prior stay earlier this year - presenting with chest pain. Has known CAD. Thus far cardiac w/u is negative. Cardiology to be consulted and 2D echo to be obtained. poor candidate for invasive testing. CT abdomen with enlarging liver mass - f/u shortly after d/c will be needed with physicians in [place]. Concern for UTI - follow culture to ensure doxycycline will be adequate. Jason Hendricks MD Subjective Pt. is doing well overall. She states chest pain and abd pain now resolved -- last episode of pain was prior to admission. Complains of shortness of breath -- on room air. SOB is present at rest and with exertion. Pt. follows with cardiology at [facility], will request records. Consult magnetic prospecting operator as inpatient. Review of Systems Review of Systems: All systems reviewed & are unremarkable except as noted in HPI & below Constitutional: no fever, no chills, no fatigue, no weakness and no anorexia Respiratory: + dyspnea and + dyspnea on exertion; no cough and no wheezing Cardiovascular: no chest pain, no palpitations, no lightheadedness and no edema Gastrointestinal: no abdominal pain, no nausea and no constipation Genitourinary: no difficulty urinating Musculoskeletal: no back pain and no joint pain Integumentary: no non-healing lesions Allergy / Immunological: no rash Physical Exam Physical Exam: General: Resting comfortably HEENT: NC/AT; PERRLA with EOMI; [place] conjunctiva, MMM. No erythema of posterior pharynx Neck: Supple and nontender Cardiac: RRR Lungs: CTA bilaterally Abdomen: Bowel normoactive X 4; Nontender to palpation Extremities: Warm. No edema present Neuro: No focal weakness Skin: No rash Results & Data Vital Signs (Past 12 Hours) Vital Signs Temp Pulse Pulse Resp BP BP Pulse Ox 08/25/18 12:24 36.7 C 70 16 136/85 94 08/25/18 08:00 71 08/25/18 07:24 36.4 C L 74 18 130/66 95 Laboratory Results 08/25/18 08/25/18 08/25/18 Range/Units 12:00 10:04 10:04 WBC (4.8-10.8) K/uL RBC (4.2-5.4) M/uL Hgb (12.0-16.0) g/dL Hct (37-47) % MCV (80-100) fL MCH (25-34) pg MCHC (32-36) g/dL RDW Std Deviation (36.4-46.3) fL RDW Coeff of Cha (11.5-14.5) % Plt Count (130-400) K/uL MPV (7.4-10.4) fL Sodium (136-145) mmol/L Potassium (3.5-5.1) mmol/L Chloride (98-107) mmol/L Carbon Dioxide (21-32) mmol/L Anion Gap (3-11) BUN (7-18) mg/dl Creatinine (0.6-1.2) mg/dl Est Cr Clr Drug Dosing ml/min Est GFR ( Amer) Est GFR (Non-Af Amer) BUN/Creatinine Ratio (10-20) Glucose (70-99) mg/dl POC Glucose 265 H (70-99) Calcium (8.5-10.1) mg/dl Ionized Calcium 1.22 (1.12-1.32) mmol/L Troponin I (0-0.045) ng/ml NT-Pro-B Natriuret Pep 497 (0-1800) pg/ml Urine Color Urine Appearance (Clear) Urine pH (4.5-7.5) Ur Specific [place] (1.000-1.030) Urine Protein (Negative) Urine Glucose (UA) (Negative) Urine Ketones (Negative) Urine Blood (Negative) Urine Nitrite (Negative) Urine Bilirubin (Negative) Urine Urobilinogen (Negative) Ur Leukocyte Esterase (Negative) Urine WBC (Auto) (0-5) /hpf Urine RBC (Auto) (0-4) /hpf U Hyaline Cast (Auto) (0-5) /lpf U Epithel Cells (Auto) (0-5) /lpf Urine Bacteria (Auto) (Negative) Urine Yeast 08/25/18 08/25/18 08/25/18 Range/Units 08:09 08:09 07:38 WBC 10.60 (4.8-10.8) K/uL RBC 4.45 (4.2-5.4) M/uL Hgb 12.4 (12.0-16.0) g/dL Hct 38.6 (37-47) % MCV 86.7 (80-100) fL MCH 27.9 (25-34) pg MCHC 32.1 (32-36) g/dL RDW Std Deviation 43.9 (36.4-46.3) fL RDW Coeff of Cha 13.9 (11.5-14.5) % Plt Count 167 (130-400) K/uL MPV 12.7 H (7.4-10.4) fL Sodium 139 (136-145) mmol/L Potassium 3.8 (3.5-5.1) mmol/L Chloride 101 (98-107) mmol/L Carbon Dioxide 31 (21-32) mmol/L Anion Gap 6.0 (3-11) BUN 24 H (7-18) mg/dl Creatinine 1.00 (0.6-1.2) mg/dl Est Cr Clr Drug Dosing 46.8 ml/min Est GFR ( Amer) 59.9 Est GFR (Non-Af Amer) 51.7 BUN/Creatinine Ratio 24.2 H (10-20) Glucose 159 H (70-99) mg/dl POC Glucose 173 H (70-99) Calcium 10.4 H (8.5-10.1) mg/dl Ionized Calcium (1.12-1.32) mmol/L Troponin I (0-0.045) ng/ml NT-Pro-B Natriuret Pep (0-1800) pg/ml Urine Color Urine Appearance (Clear) Urine pH (4.5-7.5) Ur Specific [place] (1.000-1.030) Urine Protein (Negative) Urine Glucose (UA) (Negative) Urine Ketones (Negative) Urine Blood (Negative) Urine Nitrite (Negative) Urine Bilirubin (Negative) Urine Urobilinogen (Negative) Ur Leukocyte Esterase (Negative) Urine WBC (Auto) (0-5) /hpf Urine RBC (Auto) (0-4) /hpf U Hyaline Cast (Auto) (0-5) /lpf U Epithel Cells (Auto) (0-5) /lpf Urine Bacteria (Auto) (Negative) Urine Yeast 08/25/18 08/24/18 08/24/18 Range/Units 04:11 Unknown 23:08 WBC (4.8-10.8) K/uL RBC (4.2-5.4) M/uL Hgb (12.0-16.0) g/dL Hct (37-47) % MCV (80-100) fL MCH (25-34) pg MCHC (32-36) g/dL RDW Std Deviation (36.4-46.3) fL RDW Coeff of Cha (11.5-14.5) % Plt Count (130-400) K/uL MPV (7.4-10.4) fL Sodium (136-145) mmol/L Potassium (3.5-5.1) mmol/L Chloride (98-107) mmol/L Carbon Dioxide (21-32) mmol/L Anion Gap (3-11) BUN (7-18) mg/dl Creatinine (0.6-1.2) mg/dl Est Cr Clr Drug Dosing ml/min Est GFR ( Amer) Est GFR (Non-Af Amer) BUN/Creatinine Ratio (10-20) Glucose (70-99) mg/dl POC Glucose 203 H 247 H (70-99) Calcium (8.5-10.1) mg/dl Ionized Calcium (1.12-1.32) mmol/L Troponin I (0-0.045) ng/ml NT-Pro-B Natriuret Pep (0-1800) pg/ml Urine Color Yellow Urine Appearance Turbid A (Clear) Urine pH 6.5 (4.5-7.5) Ur Specific [place] 1.036 H (1.000-1.030) Urine Protein Trace H (Negative) Urine Glucose (UA) Negative (Negative) Urine Ketones Negative (Negative) Urine Blood 1+ H (Negative) Urine Nitrite Negative (Negative) Urine Bilirubin Negative (Negative) Urine Urobilinogen Negative (Negative) Ur Leukocyte Esterase 3+ H (Negative) Urine WBC (Auto) >30 H (0-5) /hpf Urine RBC (Auto) 5-10 H (0-4) /hpf U Hyaline Cast (Auto) 0 (0-5) /lpf U Epithel Cells (Auto) >30 H (0-5) /lpf Urine Bacteria (Auto) 1+ H (Negative) Urine Yeast Not Reportable 08/24/18 08/24/18 08/24/18 Range/Units 21:41 20:07 20:05 WBC (4.8-10.8) K/uL RBC (4.2-5.4) M/uL Hgb (12.0-16.0) g/dL Hct (37-47) % MCV (80-100) fL MCH (25-34) pg MCHC (32-36) g/dL RDW Std Deviation (36.4-46.3) fL RDW Coeff of Cha (11.5-14.5) % Plt Count (130-400) K/uL MPV (7.4-10.4) fL Sodium (136-145) mmol/L Potassium (3.5-5.1) mmol/L Chloride (98-107) mmol/L Carbon Dioxide (21-32) mmol/L Anion Gap (3-11) BUN (7-18) mg/dl Creatinine (0.6-1.2) mg/dl Est Cr Clr Drug Dosing ml/min Est GFR ( Amer) Est GFR (Non-Af Amer) BUN/Creatinine Ratio (10-20) Glucose (70-99) mg/dl POC Glucose 271 H 349 H* (70-99) Calcium (8.5-10.1) mg/dl Ionized Calcium (1.12-1.32) mmol/L Troponin I < 0.015 (0-0.045) ng/ml NT-Pro-B Natriuret Pep (0-1800) pg/ml Urine Color Urine Appearance (Clear) Urine pH (4.5-7.5) Ur Specific [place] (1.000-1.030) Urine Protein (Negative) Urine Glucose (UA) (Negative) Urine Ketones (Negative) Urine Blood (Negative) Urine Nitrite (Negative) Urine Bilirubin (Negative) Urine Urobilinogen (Negative) Ur Leukocyte Esterase (Negative) Urine WBC (Auto) (0-5) /hpf Urine RBC (Auto) (0-4) /hpf U Hyaline Cast (Auto) (0-5) /lpf U Epithel Cells (Auto) (0-5) /lpf Urine Bacteria (Auto) (Negative) Urine Yeast 08/24/18 08/24/18 08/24/18 Range/Units 20:04 16:52 16:51 WBC (4.8-10.8) K/uL RBC (4.2-5.4) M/uL Hgb (12.0-16.0) g/dL Hct (37-47) % MCV (80-100) fL MCH (25-34) pg MCHC (32-36) g/dL RDW Std Deviation (36.4-46.3) fL RDW Coeff of Cha (11.5-14.5) % Plt Count (130-400) K/uL MPV (7.4-10.4) fL Sodium (136-145) mmol/L Potassium (3.5-5.1) mmol/L Chloride (98-107) mmol/L Carbon Dioxide (21-32) mmol/L Anion Gap (3-11) BUN (7-18) mg/dl Creatinine (0.6-1.2) mg/dl Est Cr Clr Drug Dosing ml/min Est GFR ( Amer) Est GFR (Non-Af Amer) BUN/Creatinine Ratio (10-20) Glucose (70-99) mg/dl POC Glucose 363 H* 360 H* 372 H* (70-99) Calcium (8.5-10.1) mg/dl Ionized Calcium (1.12-1.32) mmol/L Troponin I (0-0.045) ng/ml NT-Pro-B Natriuret Pep (0-1800) pg/ml Urine Color Urine Appearance (Clear) Urine pH (4.5-7.5) Ur Specific [place] (1.000-1.030) Urine Protein (Negative) Urine Glucose (UA) (Negative) Urine Ketones (Negative) Urine Blood (Negative) Urine Nitrite (Negative) Urine Bilirubin (Negative) Urine Urobilinogen (Negative) Ur Leukocyte Esterase (Negative) Urine WBC (Auto) (0-5) /hpf Urine RBC (Auto) (0-4) /hpf U Hyaline Cast (Auto) (0-5) /lpf U Epithel Cells (Auto) (0-5) /lpf Urine Bacteria (Auto) (Negative) Urine Yeast 08/24/18 08/24/18 Range/Units 14:16 14:12 WBC (4.8-10.8) K/uL RBC (4.2-5.4) M/uL Hgb (12.0-16.0) g/dL Hct (37-47) % MCV (80-100) fL MCH (25-34) pg MCHC (32-36) g/dL RDW Std Deviation (36.4-46.3) fL RDW Coeff of Cha (11.5-14.5) % Plt Count (130-400) K/uL MPV (7.4-10.4) fL Sodium (136-145) mmol/L Potassium (3.5-5.1) mmol/L Chloride (98-107) mmol/L Carbon Dioxide (21-32) mmol/L Anion Gap (3-11) BUN (7-18) mg/dl Creatinine (0.6-1.2) mg/dl Est Cr Clr Drug Dosing ml/min Est GFR ( Amer) Est GFR (Non-Af Amer) BUN/Creatinine Ratio (10-20) Glucose (70-99) mg/dl POC Glucose 268 H (70-99) Calcium (8.5-10.1) mg/dl Ionized Calcium (1.12-1.32) mmol/L Troponin I < 0.015 (0-0.045) ng/ml NT-Pro-B Natriuret Pep (0-1800) pg/ml Urine Color Urine Appearance (Clear) Urine pH (4.5-7.5) Ur Specific [place] (1.000-1.030) Urine Protein (Negative) Urine Glucose (UA) (Negative) Urine Ketones (Negative) Urine Blood (Negative) Urine Nitrite (Negative) Urine Bilirubin (Negative) Urine Urobilinogen (Negative) Ur Leukocyte Esterase (Negative) Urine WBC (Auto) (0-5) /hpf Urine RBC (Auto) (0-4) /hpf U Hyaline Cast (Auto) (0-5) /lpf U Epithel Cells (Auto) (0-5) /lpf Urine Bacteria (Auto) (Negative) Urine Yeast PG Care Time/CCT Total # of Minutes Spent Total Time Spent with Patient: Total time spent is greater than 50% in coordination of care (as documented) at patient's floor/unit and/or counseling patient:
[2018-08-25] MEDS: INSULIN DEGLUDEC 100 UNITS/ML SQ SCH (16:47)
[2018-08-25] MEDS: HEPARIN SOD 5,000 UNIT/0.5 ML VIAL SQ SCH (20:43)
--- NOTE | 2018-08-25 22:44 | Consultation Report ---
DATE OF CONSULTATION: 08/25/2018 REQUESTING: Sapna Sandhu. DIRECTOR TRADING: Akbar Parker DO, [facility] [address] [facility]. REASON FOR CONSULTATION: Chest discomfort, known coronary artery disease. Dear Sapna, Thank you for requesting cardiology consultation on Katya with regards to her chest discomfort. As you know, she has an extensive past medical history with known colon cancer and mets to her liver. She notes she had 2 separate types of discomfort, one was left upper quadrant which was rather severe and she has had pain here on multiple episodes and actually has chronic pain. The second type of discomfort was more central in her chest. It awoke her from her sleep. She may have had slight radiation to her arm. She has had no further chest discomfort, but she continues to have right upper quadrant discomfort. Unfortunately, given her complex medical problems and her age, she is only able to walk with a walker about 5-10 feet. She notes even when she has to go to the bathroom, there are times that she does not have enough strength to get to the bathroom with her walker. Otherwise, she is essentially in a chair. Her family needs to help her get out of bed. Although living at home is an essence housebound. She has had no further chest discomfort. She denies any current shortness of breath. She did become slightly diaphoretic with the right upper quadrant discomfort. She has no lower extremity edema. She denies any palpitations or fluttering or feeling her heart racing. Her appetite has been so-so and she notes she just feels like she is getting weaker and weaker. Understandably, she is dealing with issues of depression. She has symptoms of peripheral neuropathy as well. The rest of a complete review of systems is otherwise negative. FAMILY HISTORY: Noncontributory. SOCIAL HISTORY: She lives with her family who helps care for her. She is a lifetime nonsmoker. She denies any alcohol use. ALLERGIES: IV CONTRAST, BACTRIM, CIPRO, NITROFURANTOIN, SULFAMETHOXAZOLE, TRIMETHOPRIM, ACARBOSE, INSULIN, METFORMIN, PENICILLIN AND TROGLITAZONE. MEDICATIONS: Reviewed in electronic medical record. PAST MEDICAL HISTORY: 1. Coronary artery disease with history of stents x6 in 2004 followed by cardiology at [facility] in [place]. 2. Hypertension. 3. Diabetes mellitus type 2. 4. Diabetic neuropathy. 5. Metastatic colon cancer with mets to her liver. 6. Paroxysmal atrial fibrillation, currently in sinus rhythm. 7. History of recurrent UTIs. 8. Depression. PHYSICAL EXAMINATION: GENERAL: She is awake, alert, oriented x3. She looks very frail. VITAL SIGNS: Her pulse is 71, blood pressure 130/66, respirations 18, her sats 95% on room air. HEENT: 2+ carotid upstrokes, no evidence of carotid bruits. Jugular venous pressure did not appear elevated. Sclerae is anicteric. Her hearing is mildly diminished. LUNGS: Clear to auscultation bilaterally. No rales, rhonchi or wheezing. HEART: Regular rate and rhythm. There is a crescendo-decrescendo murmur 2/6 which is mid peaking. Loudest at the apex. ABDOMEN: Soft. Her liver is palpable and tender, positive bowel sounds, nondistended. EXTREMITIES: No clubbing, cyanosis or edema. PSYCHIATRIC: Affect appeared appropriate. She looks chronically ill and quite frail. DIAGNOSTIC STUDIES: EKG sinus rhythm, right bundle branch block, unchanged from her prior EKG, no acute ST-T changes to suggest ischemia. Her troponins are negative x2. CTA of her chest, no evidence of pulmonary embolism or consolidation. A 6 cm hepatic mass, cirrhosis, indwelling biliary enteric stent, renal calculi. IMPRESSION: 1. Chest discomfort with a history of coronary artery disease. 2. Right upper quadrant discomfort with known liver mass. 3. Metastatic colon cancer. 4. Paroxysmal atrial fibrillation, currently in sinus rhythm. 5. Right bundle branch block. Her functional capacity is extremely limited. She is barely able to walk 5-10 feet with a walker and often can even walk that much. She notes that her legs are incredibly weak and she needs her family to help her get out of bed, in light of this even if she were to have angina or progressive coronary artery disease, I would treat her medically especially in light of her complex medical problems. She is on aspirin and statin therapy along with beta blockers and Imdur. If she were to have additional chest discomfort, amlodipine could be added to her medical regimen. She does have a murmur consistent with moderate aortic stenosis. Her carotid upstrokes felt relatively normal suggesting her LV function is probably normal as well. Given her frailty, she is not a candidate for cardiac catheterization and therefore stress testing would have no clinical benefit. We will continue to follow her with you. As noted, I would continue with aggressive medical therapy.
[2018-08-26] MEDS: DOXYCYCLINE HYCLATE 100 MG CAP PO SCH ×2 (05:26→21:08)
[2018-08-26 08:13] LABS: BUN Creatinine Ratio 28.7 (10-20); Calcium 9.4 mg/dl (8.5-10.1); Est GFR (African American) 38.9; Est GFR (Non-African American) 33.5
[2018-08-26] MEDS: INSULIN ASPART 100 UNITS/ML 3 ML PEN SC SCH ×4 (08:13→21:06)
[2018-08-26] MEDS: FOLIC ACID 1 MG TAB PO SCH (08:14)
[2018-08-26] MEDS: SUCRALFATE 1 GM TAB PO SCH ×4 (08:14→21:07)
[2018-08-26] MEDS: ASPIRIN 81 MG ECTAB PO SCH (08:14)
[2018-08-26] MEDS: ASCORBIC ACID 500 MG TAB PO SCH (08:14)
[2018-08-26] MEDS: TRAZODONE HCL 50 MG TAB PO SCH ×2 (08:14→21:07)
[2018-08-26] MEDS: CARBIDOPA/LEVODOPA 25/100MG TAB PO SCH ×3 (08:14→21:07)
[2018-08-26 08:15] LABS: Estimated Average Glucose 163 mg/dl; Hemoglobin A1C 7.3 % (4.5-5.6)
[2018-08-26] MEDS: FERROUS SULFATE 325 MG TAB PO SCH (08:15)
[2018-08-26] MEDS: CARVEDILOL 6.25 MG TAB PO SCH ×2 (08:15→21:07)
[2018-08-26] MEDS: MAGNESIUM OXIDE 400 MG TAB PO SCH (08:15)
[2018-08-26] MEDS: ISOSORBIDE MONO EXTENDED REL 30 MG TABCR PO SCH (08:15)
[2018-08-26] MEDS: ATORVASTATIN 40 MG TAB PO SCH (08:15)
[2018-08-26] MEDS: VENLAFAXINE HCL XR 37.5 MG CAPXR PO SCH (08:15)
[2018-08-26] MEDS: HEPARIN SOD 5,000 UNIT/0.5 ML VIAL SQ SCH ×2 (08:15→21:05)
[2018-08-26] MEDS: PANTOprazole 40 MG TAB PO SCH (08:15)
[2018-08-26] MEDS: PREGABALIN 50 MG CAP PO SCH ×3 (08:17→21:07)
[2018-08-26] MEDS: OXYCODONE HCL 20 MG TABCR (OXYCONTIN) PO SCH ×2 (08:19→21:07)
[2018-08-26] MEDS: POLYETHYLENE (MIRALAX) 17 GM PACK PO SCH (08:19)
[2018-08-26] MEDS: DOCUSATE SODIUM 100 MG CAP PO SCH ×2 (08:19→21:06)
[2018-08-26] MEDS: INSULIN DEGLUDEC 100 UNITS/ML SQ SCH (08:20)
--- NOTE | 2018-08-26 12:02 | Cardiology Progress Note ---
Date of Service August 26, 2018 Assessment & Plan (1) Left-sided chest pain: 2. Coronary artery disease post multiple prior stents 3. Paroxysmal AF 4. Chronic RBBB 5. Type 2 DM 6. Metastatic colon cancer with mets to [facility] 7. RUQ pain. No recurrent left sided chest pain since admitted. ECG, cardiac enzymes unremarkable. Low suspicion for ACS. No other active cardiac conditions. -- No need for additional cardiac testing -- Continue home ASA, statin, beta-marvin and imdur -- Cardiology to sign off. Please contact if new issues arise. Subjective Endorses persistent RUQ pain. Worse after taking a deep breath. No recurrent chest pain similar to what had prior to admission. Review of Systems Review of Systems: All systems reviewed & are unremarkable except as noted in HPI & below Physical Exam Constitutional: WD/WN, vitals as above Eyes: sclerae not anicteric Respiratory: normal respiratory effort Cardiovascular: Rate/Rhythm: regular rate Heart Sounds: + murmur (3/6 CAN) Vessels: dorsalis pedis pulses present; no JVD Extremities: no pedal edema Gastrointestinal (Abdomen): Percussion/Palpation: + abdomen tender and abdomen soft Skin: no rashes, warm and dry Neurologic: moves all extremities Psychiatric: Orientation: alert Results & Data Vital Signs (Past 12 Hours) Vital Signs Temp Pulse Pulse Resp BP Pulse Ox 08/26/18 08:00 82 08/26/18 07:33 37.1 C 95 H 18 145/89 H 93 08/26/18 04:42 37.0 C 79 20 141/84 H 95 08/26/18 00:29 36.4 C L 83 20 142/84 H 96
--- NOTE | 2018-08-26 13:46 | Hospitalist Progress Note ---
Date of Service August 26, 2018 Assessment & Plan (1) Left-sided chest pain: - Chest pain now resolved since admission; unclear etiology -- GERD vs. demand ischemia vs. A. fib vs. other. - Significant cardiac history, follows with [facility] in [place]; cardiology consulted, appreciate input. - EKG was negative; Trop x 3 also negative. - CXR and CT PE negative. - no need for additional cardiac testing per cardiology, low likelihood for ACS as cause of pain - Continue cardiac meds as prescribed. (2) Shortness of breath: - Has been stable on room air; unclear etiology -- may be related to cardiac event vs. underlying HF. - CXR and CTA were negative on admission. - BNP was WNL; (3) Coronary artery disease: - Follows with cardiology, [facility]. - Continue aspirin, statin, beta marvin, imdur as prescribed. - Significant cardiac history, 6 stents. - Cardiac work up as noted above. (4) Liver mass: - H/o TACE procedure, follows at [facility]. Recently transferred to [facility] due to concern for bleeding liver mass -- per [facility], was likely scarring with no evidence of bleeding. - Did have right sided abd pain at admission, again this morning but resolved this afternoon - CT A/P showed enlarging right liver mass compared to prior images. - Will need to burn disc with imaging studies at discharge and schedule close follow up with physician in [place]. - S/p CBD stent placement on 06/12/18 -- consult GI for removal per family request - will complicate dc to rehab if not done inpatient before leaving (5) Depression: - Continue Effexor as prescribed. (6) Hypertension: - Continue Coreg and and Imdur as prescribed. (7) Diabetes mellitus, type 2: - Hgb A1C was 12.4. - Holding home insulin; consulted pharmacy for glycemic management due to uncontrolled levels. (8) Diabetic neuropathy: - Continue home meds. (9) Parkinson's disease: - Continue home Sinemet as prescribed. (10) Recurrent urinary tract infection: - Recently diagnosed, started on Doxy as outpatient as prophylaxis - UC on 08/24 + enterobacter - will hold off on treating for now other than prophylactic doxy as patient has quite a number of allergies and is not particularly symptomatic, no leukocytosis, afebrile - will continue to monitor for s/s of infection and treat if necessary (11) Atrial fibrillation: - Continue Coreg as prescribed. - On laboratory monitor. - Not on anticoagulation per family. (12) Iron deficiency: - Continue home ferrous sulfate daily. (13) Chronic pain syndrome: - Continue Oxycontin 20 mg q12hr. (14) GERD (gastroesophageal reflux disease): - PPI daily. (15) Colon cancer: - H/o, follows at [facility]. (16) Electrolyte abnormality: - Ca level was 10.4, ICal was WNL -- will continue to monitor. - No evidence of andressa metastasis on imaging. (17) DVT prophylaxis: - SCDs. Heparin 5,000 units q12hr. Dispo: PT/OT recommending rehab Subjective Ms. Acevedo has no chest pain. She did have some right upper quadrant pain and tenderness earlier in the day which has now resolved. She is alert and oriented but a bit tired this afternoon. Review of Systems Review of Systems: All systems reviewed & are unremarkable except as noted in HPI & below Physical Exam Physical Exam: General: no distress Eyes: normal inspection, PERLL Respiratory: chest non tender, clear to auscultation, normal breath sounds, no respiratory distress, no accessory muscle use Cardiac: regular rate and rhythm, no rub or gallop, no murmur, no edema, no jvd GI/: active bowel sounds, no abd pain or tenderness, soft, non distended Extremities: normal range of motion, normal strength, non tender Neuro/Psych: drowsy and oriented x 3, normal mood and affect, CN II -XII intact Skin: normal color, dry Results & Data Vital Signs (Past 12 Hours) Vital Signs Temp Pulse Pulse Resp BP Pulse Ox 08/26/18 12:25 95 08/26/18 12:00 144/76 H 08/26/18 08:00 82 08/26/18 07:33 37.1 C 95 H 18 145/89 H 93 08/26/18 04:42 37.0 C 79 20 141/84 H 95 PG Care Time/CCT Total # of Minutes Spent Total Time Spent with Patient: Total time spent is greater than 50% in coordination of care (as documented) at patient's floor/unit and/or counseling patient:
[2018-08-26 14:09] LABS: Hematocrit (blood only) 36.2 % (37-47); Hemoglobin 11.4 g/dL (12.0-16.0)
[2018-08-27 08:16] LABS: Hematocrit (blood only) 35.1 % (37-47); Hemoglobin 10.8 g/dL (12.0-16.0); Mean Corpuscular Hgb Conc 30.8 g/dL (32-36); Mean Corpuscular Volume 87.3 fL (80-100); Mean Platelet Volume 12.3 fL (7.4-10.4); Platelet Count 161 K/uL (130-400); RDW Coefficient of Variation 14.1 % (11.5-14.5); RDW Standard Deviation 45.3 fL (36.4-46.3); Red Blood Count 4.02 M/uL (4.2-5.4); White Blood Count 7.35 K/uL (4.8-10.8)
[2018-08-27] MEDS: CARVEDILOL 6.25 MG TAB PO SCH ×2 (08:30→21:27)
[2018-08-27] MEDS: VENLAFAXINE HCL XR 37.5 MG CAPXR PO SCH (08:30)
[2018-08-27] MEDS: SUCRALFATE 1 GM TAB PO SCH ×4 (08:30→21:27)
[2018-08-27] MEDS: FOLIC ACID 1 MG TAB PO SCH (08:30)
[2018-08-27] MEDS: DOCUSATE SODIUM 100 MG CAP PO SCH ×2 (08:30→21:32)
[2018-08-27] MEDS: PANTOprazole 40 MG TAB PO SCH (08:30)
[2018-08-27] MEDS: TRAZODONE HCL 50 MG TAB PO SCH ×2 (08:30→21:26)
[2018-08-27] MEDS: PREGABALIN 50 MG CAP PO SCH ×2 (08:30→13:27)
[2018-08-27] MEDS: ASPIRIN 81 MG ECTAB PO SCH (08:30)
[2018-08-27] MEDS: ISOSORBIDE MONO EXTENDED REL 30 MG TABCR PO SCH (08:30)
[2018-08-27] MEDS: ATORVASTATIN 40 MG TAB PO SCH (08:30)
[2018-08-27] MEDS: OXYCODONE HCL 20 MG TABCR (OXYCONTIN) PO SCH ×2 (08:30→21:26)
[2018-08-27] MEDS: FERROUS SULFATE 325 MG TAB PO SCH (08:30)
[2018-08-27] MEDS: HEPARIN SOD 5,000 UNIT/0.5 ML VIAL SQ SCH ×2 (08:31→21:49)
[2018-08-27] MEDS: DOXYCYCLINE HYCLATE 100 MG CAP PO SCH ×2 (08:31→21:26)
[2018-08-27] MEDS: CARBIDOPA/LEVODOPA 25/100MG TAB PO SCH ×3 (08:31→21:28)
[2018-08-27] MEDS: POLYETHYLENE (MIRALAX) 17 GM PACK PO SCH (08:31)
[2018-08-27] MEDS: MAGNESIUM OXIDE 400 MG TAB PO SCH (08:31)
[2018-08-27] MEDS: ASCORBIC ACID 500 MG TAB PO SCH (08:31)
[2018-08-27] MEDS: INSULIN ASPART 100 UNITS/ML 3 ML PEN SC SCH ×5 (08:32→23:44)
[2018-08-27] MEDS: INSULIN DEGLUDEC 100 UNITS/ML SQ SCH (08:46)
[2018-08-27 09:05] LABS: BUN Creatinine Ratio 32.6 (10-20); Calcium 9.3 mg/dl (8.5-10.1); Creatinine Clr Calc Pharmacy 42.1 ml/min; Est GFR (African American) 52.2; Est GFR (Non-African American) 45.1; Potassium 4.1 mmol/L (3.5-5.1)
--- NOTE | 2018-08-27 15:00 | Gastrointestinal Consultation ---
Date of Consultation August 27, 2018 Assessment & Plan (1) Cirrhosis: Cirrhosis with liver mass ? HCC or other cancer. Pt following with specialists in [place]. Would defer management to their group, though we would be happy to provide biliary endoscopy when indicated. Present on Admission?: Yes (2) Common bile duct obstruction: Will plan for ERCP for CBD stent removal tomorrow, 08/28/18. Please keep NPO after midnight. Present on Admission?: Yes Supervising Physician Co-Signing Physician Notes I saw and evaluated the patient. The patient is due to have an ERCP next week for biliary stent removal. As she is presently admitted we are certainly happy to provide the service during this hospital admission. Physical examination No obvious distress No scleral icterus Impression: Patient with a history of hemobilia thought to be related to a large mass within the liver. We are planning to do ERCP tomorrow with stent removal and repeat cholangiogram. If a significant biliary stricture is seen then the patient may or biliary stent placed. I did discuss the potential need for follow-up stent placement with the patient's daughter who acts as her power of district attorney. We have discussed the risks of the procedure to include bleeding, infection, perforation and need for follow-up studies. History of Present Illness Reason for Consultation: Biliary Stent - unable to send to rehab until it is removed. Requesting Physician: Dr. Esparza Attending Physician: Navid Esparza MD History of Present Illness Ms. Katya Acevedo is an 82 yr old female pt of Dr. Villanueva with a hx of HTN, DM- 2, Parkinson's, depression, recurrent UTIs on doxycycline. She presented to the ED for CP on 08/24. ACS was ruled out and transfer to rehab is being considered. However, she also has hx of a 7cm liver lesion which caused bleeding and some bile duct obstruction from clots in June and an ERCP was completed with placement of a bile duct stent at that time. This was a temporary stent and removal was planned for next week. However, according to case management and the primary hospitalist, the rehab facility requests removal of this stent prior to admission to rehab as they prefer not to provide transportation back to [facility] next week. The pt is seen and examined while she is sitting up on a chair at bedside. She denies any abdominal pain, nausea, vomiting or jaundice. LFTs: bili is normal, AST 71, ALT 80, Alk phos 800's. ERCP on 06/12/[address] Machuca: - Hemobilia was found. Likely bleeding from the large Liver mass. - Blood in the duodenal bulb and in the second portion of the duodenum. - Filling defects seen on prior imaging are actually blood clots was seen on the cholangiogram. - Entire main bile duct were markedly dilated. - The biliary tree was swept and clots were found. No extrahepatic biliary mass seen on the cholangiogram. - One plastic stent was placed into the common bile duct. (One 10 Fr by 4 cm plastic stent with a full external pigtail and one full internal pigtail was placed into the common bile duct. Removal was recommended for 4 weeks. Allergies Allergy/AdvReac Type Severity Reaction Status Date / Time Iodinated Contrast- Oral and Allergy Intermediate IV Verified 08/24/18 08:49 IV Dye CONTRAST- HIVES mivacurium Allergy Mild dizzy, Verified 08/24/18 08:49 nauseous (per patient) Bactrim Allergy Unknown patient Verified 09/21/16 05:17 unsure Cipro Allergy Unknown unknown Verified 09/21/16 05:17 ciprofloxacin Allergy Unknown unknown Verified 08/24/18 08:49 nitrofurantoin Allergy Unknown unknown Verified 08/24/18 08:49 sulfamethoxazole Allergy Unknown patient Verified 08/24/18 08:49 unsure trimethoprim Allergy Unknown patient Verified 08/24/18 08:49 unsure acarbose AdvReac Mild GI SYMPTOMS Verified 08/24/18 08:49 insulin glargine AdvReac Mild "Very ill" Verified 08/24/18 08:49 [From Lantus U-100 Insulin] - see comments metformin AdvReac Mild GI SYMPTOMS Verified 08/24/18 08:49 Penicillins AdvReac Mild dizzy, Verified 08/24/18 08:49 nausous (per patient) tolerated zosyn [id number] troglitazone AdvReac Mild GI SYMPTOMS Verified 08/24/18 08:49 Home Medications Home Medications Medication Instructions Recorded Confirmed Type Lyrica 50 mg PO TID 06/11/18 08/24/18 History ascorbic acid (vitamin C) 500 mg PO DAILY 06/11/18 08/24/18 History carvedilol 6.25 mg PO BID 06/11/18 08/24/18 History docusate sodium 100 mg PO BID 06/11/18 08/24/18 History ferrous sulfate 325 mg PO DAILY 06/11/18 08/24/18 History folic acid 1 mg PO DAILY 06/11/18 08/24/18 History magnesium oxide 400 mg PO DAILY 06/11/18 08/24/18 History nitroglycerin See Rx Instructions .ROUTE .COMPLEX 06/11/18 08/24/18 History oxycodone 5 mg PO Q6 PRN 06/11/18 08/24/18 History oxycodone [OxyContin] 20 mg PO Q12H 06/11/18 08/24/18 History pantoprazole 40 mg PO DAILY 06/11/18 08/24/18 History polyethylene glycol 3350 [GlycoLax] 17 g PO DAILY 06/11/18 08/24/18 History prochlorperazine maleate 10 mg PO TID PRN 06/11/18 08/24/18 History sucralfate 1 g PO QID 06/11/18 06/11/18 History trazodone 50 mg PO BID 06/11/18 06/11/18 History venlafaxine 37.5 mg PO DAILY 06/11/18 08/24/18 History sodium chloride 0.9 % 80 ml CONTINUOUS IV INFUSION Q1H 06/12/18 08/24/18 Rx #1200 ml aspirin [Aspirin Low Dose] 81 mg PO DAILY 08/24/18 08/24/18 History atorvastatin 40 mg PO DAILY 08/24/18 08/24/18 History carbidopa-levodopa 2 tab PO TID 08/24/18 08/24/18 History doxycycline hyclate 100 mg PO BID 08/24/18 08/24/18 History insulin aspart (niacinamide) 6 unit SUBCUT TIDM 08/24/18 08/24/18 History [Fiasp FlexTouch U-100 Insulin] insulin degludec [Tresiba 36 unit SUBCUT QAM 08/24/18 08/24/18 History FlexTouch U-200] isosorbide mononitrate 30 mg PO DAILY 08/24/18 08/24/18 History Patient History Medical History Coronary artery disease (Chronic) "s/p PCI ? Alexander" Hypertension (Chronic) GERD (gastroesophageal reflux disease) (Chronic) Diabetes mellitus, type 2 (Chronic) Diabetic neuropathy (Chronic) Parkinson's disease (Chronic) Recurrent urinary tract infection (Chronic) Chronic pain syndrome (Chronic) "arthritis + neuropathy" Atrial fibrillation (Chronic) "per old records" Surgical History Status post cardiac catheterization (Chronic) Status post coronary artery stent placement (Chronic) Status post cholecystectomy (Chronic) Family History Other Myocardial infarction Social History Preferred Language: Nauruan Communication Ability: Effective Communication Ability Comment: per patient, unable to write Cushion Mat Maker Required: No Beliefs That Will Affect Care: None marital status: / Current Living Situation: Family Current Living Situation Comment: Patient drowsy/ unable to answer at this time Other Information That Helps Us Care for You: No Feels Safe at Home: Yes Safety Concerns: Feels Safe At This Time Smoking Status: Never smoker Do You Dip or Chew Tobacco: No Second Hand Exposure: No Tobacco Cessation Education Requested by Patient: No Hx Alcohol Use: No Hx Substance Use: No Review of Systems Constitutional: + weakness (general); no fever, no chills and no body aches Ear, Nose, Mouth, Throat: no problem reported Respiratory: no cough, no chest congestion and no dyspnea Cardiovascular: + chest pain (resolved since arrival) Gastrointestinal: no abdominal pain, no nausea and no vomiting + right sided abdominal pain Genitourinary: no dysuria Musculoskeletal: + back pain Integumentary: no rash no jaundice Neurologic: + generalized weakness Psychiatric: no depression and no anxiety Physical Exam Constitutional: WD/WN, vitals as above + obese and + behavioral limitations (age and illness related, needs help when tranferring et) Cardiovascular: RRR, no murmur, no edema Gastrointestinal (Abdomen): Obese, soft, hypoactive BS, moderate diffuse tenderness in the right mid abdomen without discrete palpable mass. Skin: no rashes, warm and dry Neurologic: patellar DTR's 2+ bilat, sensation intact Results & Data Vital Signs (Past 12 Hours) Vital Signs Temp Pulse Pulse Resp BP BP Pulse Ox 08/27/18 12:12 36.7 C 83 19 115/74 94 08/27/18 09:51 82 08/27/18 07:17 36.8 C 70 18 102/64 91 08/27/18 04:00 36.6 C 73 17 142/[address] 08/24 with IV contrast: 1. Enlarging 7 cm segment 5 hepatic mass. 2. Hepatic cirrhosis 3. Mild intra and extrahepatic biliary ductal dilatation. There is an indwelling biliary enteric stent, and there is pneumobilia suggesting stent patency 4. Nonobstructing lower pole right renal calculus 5. Mild dilatation of both renal collecting systems and ureters. There is bilateral uroepithelial enhancement. This could indicate a urinary tract infection and clinical correlation in this regard is advocated 6. No evidence of bowel obstruction. No evidence of free air
[2018-08-27 15:05] LABS: Base Excess ABG 4.1 mEq/L (-9-1.8); HCO3 ABG 28 mmol/L (19-24); Oxygen Saturation ABG 91.5 % (90-95); PCO2 ABG 41 mmHg (35-46); PO2 ABG 66 mm/Hg (80-95); pH ABG 7.46 (7.35-7.45)
[2018-08-27 15:06] LABS: Allen Test Pos (Pos)
--- NOTE | 2018-08-27 15:23 | CT Scan Report ---
HEAD CT NONCONTRAST CT DOSE: 537.48 mGy.cm HISTORY: Altered mental status. TECHNIQUE: Multiaxial CT images of the head were performed without the use of intravenous contrast. A utomated exposure control was utilized for this study. A dose lowering technique was utilized adheri ng to the principles of ALARA. Comparison: None. Findings: The paranasal sinuses and mastoid air cells are clear. The calvarium and skull base are int act. There is no mass, hematoma, midline shift, acute infarct. White matter hypodensity is nonspecifi c but suggestive of microvascular ischemic change. The ventricles and sulci demonstrate mild age-rela dayanna involutional changes. Impression: No acute intracranial abnormality. Atrophy and microvascular ischemic changes. Electronically signed by: Carmine Desouza M.D. 08/27/2018 3:22 PM
--- NOTE | 2018-08-27 15:37 | Hospitalist Progress Note ---
Date of Service August 27, 2018 Assessment & Plan (1) Left-sided chest pain: - Chest pain now resolved since admission; unclear etiology -- GERD vs. demand ischemia vs. A. fib vs. other. - Significant cardiac history, follows with [facility] Cardiology in [place] - EKG was negative; Trop x 3 also negative. - CXR and CT PE negative. - no need for additional cardiac testing per cardiology, low likelihood for ACS as cause of pain - Continue cardiac meds as prescribed. (2) Shortness of breath: - Has been stable on room air; unclear etiology -- may be related to cardiac event vs. underlying HF. - CXR and CTA were negative on admission. - BNP was WNL; - on RA (3) Coronary artery disease: - [facility] - Continue aspirin, statin, beta marvin, imdur as prescribed. - Significant cardiac history, 6 stents. - Cardiac work up as noted above. (4) Liver mass: - H/o TACE procedure, follows at [facility]. Recently transferred to [facility] due to concern for bleeding liver mass -- per [facility], was likely scarring rather than mass. Bleeding with clots was seen during CBD stent placment 06/12 - does have right upper quadrant pain intermittently - CT A/P showed enlarging right liver mass compared to prior images, now 7 cm - Will need to burn disc with imaging studies at discharge and schedule close follow up with physician in [place]. She is currently scheduled to see them in October but will need closer follow up. She sees Dr. Chay Garrison [phone] - S/p CBD stent placement on 06/12/18 -- consult GI for removal per family request - will complicate dc to rehab if not done inpatient before leaving. GI ok with stent removal, per daughter patient's GI provider discussed with Dr. Beltran today as she called Dr. Machuca to discuss her mother's case. (5) Depression: - Continue Effexor as prescribed. (6) Hypertension: - Continue Coreg and and Imdur as prescribed. (7) Diabetes mellitus, type 2: - Hgb A1C was 12.4. - Holding home insulin; consulted pharmacy for glycemic management due to uncontrolled levels. (8) Diabetic neuropathy: - Continue home meds. (9) Parkinson's disease: - Continue home Sinemet as prescribed. (10) Recurrent urinary tract infection: - Recently diagnosed, started on Doxy as outpatient as prophylaxis - UC on 08/24 + enterobacter - will start IV ceftriaxone due to altered mental status, continue prophylactic doxy (11) Atrial fibrillation: - Continue Coreg as prescribed. - On athletic monitor. - Not on anticoagulation per family. (12) Iron deficiency: - Continue home ferrous sulfate daily. (13) Chronic pain syndrome: - Continue Oxycontin 20 mg q12hr. (14) GERD (gastroesophageal reflux disease): - PPI daily. (15) Colon cancer: - H/o, follows at [facility]. (16) Electrolyte abnormality: - Ca level was 10.4, ICal was WNL -- will continue to monitor. - Ca now wnl (17) DVT prophylaxis: - SCDs. Heparin 5,000 units q12hr - hold morning dose for ERCP Dispo: PT/OT recommending rehab (18) Encephalopathy: metabolic vs toxic Patient has been receiving TID dosing of Lyrica but per daughter normally only takes bid - will hold for now. Ammonia with negligible elevation, will give 1 dose lactulose now as patient has been somewhat constipated anyway ABGs with some CO2 retention - pCO2 was in the 60s but compensated by HCO3 so likely this is near baseline level. Head CT negative for acute No focal findings on exam. Start ceftriaxone for UTI Subjective Ms. Acevedo is lethargic and somewhat confused this afternoon though she can answer some questions appropriately. Her daughter is at bedside and does express some concern over her mother's mental status change. Review of Systems Review of Systems: All systems reviewed & are unremarkable except as noted in HPI & below Physical Exam Physical Exam: General: no distress Eyes: normal inspection, PERLL Respiratory: chest non tender, clear to auscultation, normal breath sounds, no respiratory distress, no accessory muscle use Cardiac: regular rate and rhythm, no rub or gallop, systolic murmur, no edema, no jvd GI/: active bowel sounds, mild right upper quadrant tenderness, soft, non distended Extremities: normal range of motion, normal strength, non tender Neuro/Psych: lethargic, oriented to person and place, normal mood and affect,unable to follow command to test all contract implementation analyst but no obvious hemplegia or f acial droop Skin: normal color, dry, cool skin to the touch Results & Data Vital Signs (Past 12 Hours) Vital Signs Temp Pulse Pulse Resp BP BP Pulse Ox 08/27/18 12:12 36.7 C 83 19 115/74 94 08/27/18 09:51 82 08/27/18 07:17 36.8 C 70 18 102/64 91 08/27/18 04:00 36.6 C 73 17 142/81 H 94 PG Care Time/CCT Total # of Minutes Spent Total Time Spent with Patient: Total time spent is greater than 50% in coordination of care (as documented) at patient's floor/unit and/or counseling patient:
[2018-08-27] MEDS ORDERED: SODIUM CHLORIDE 0.9% 1000ML 1,000 ML IV SCH (16:15)
[2018-08-27] MEDS ORDERED: LACTULOSE SYRUP 30 GM/45 ML UDP PO ONE (16:15)
[2018-08-27] MEDS ORDERED: Nursing to Pharmacy Communication ONE (16:31)
[2018-08-27] MEDS: cefTRIAXone SODIUM 2,000 MG in DEXTROSE 5% 50 ML IV SCH (16:38)
--- NOTE | 2018-08-27 16:57 | Anesthesiology Consultation ---
Date of Service August 27, 2018 Assessment & Plan (1) Encounter for pre-operative examination: Chart Review Chart Review: Acceptable Risk for Surgery History Surgery Operation Date: 08/28/18 08:10 Proposed Procedures p Endoscopic Retrograde Cholangiopancreatogram with Stent Removal - Devin Sanders Height/Weight Height: 5 ft 5 in Weight: 92.8 kg Allergies Allergy/AdvReac Type Severity Reaction Status Date / Time Iodinated Contrast- Oral and Allergy Intermediate IV Verified 08/24/18 08:49 IV Dye CONTRAST- HIVES mivacurium Allergy Mild dizzy, Verified 08/24/18 08:49 nauseous (per patient) Bactrim Allergy Unknown patient Verified 09/21/16 05:17 unsure Cipro Allergy Unknown unknown Verified 09/21/16 05:17 ciprofloxacin Allergy Unknown unknown Verified 08/24/18 08:49 nitrofurantoin Allergy Unknown unknown Verified 08/24/18 08:49 sulfamethoxazole Allergy Unknown patient Verified 08/24/18 08:49 unsure trimethoprim Allergy Unknown patient Verified 08/24/18 08:49 unsure acarbose AdvReac Mild GI SYMPTOMS Verified 08/24/18 08:49 insulin glargine AdvReac Mild "Very ill" Verified 08/24/18 08:49 [From Lantus U-100 Insulin] - see comments metformin AdvReac Mild GI SYMPTOMS Verified 08/24/18 08:49 Penicillins AdvReac Mild dizzy, Verified 08/24/18 08:49 nausous (per patient) tolerated zosyn [id number] troglitazone AdvReac Mild GI SYMPTOMS Verified 08/24/18 08:49 Medications Home Medications Medication Instructions Recorded Confirmed Last Taken Lyrica 50 mg PO TID 06/11/18 08/24/18 08/23/18 ascorbic acid (vitamin C) 500 mg PO DAILY 06/11/18 08/24/18 08/23/18 carvedilol 6.25 mg PO BID 06/11/18 08/24/18 08/23/18 docusate sodium 100 mg PO BID 06/11/18 08/24/18 08/23/18 ferrous sulfate 325 mg PO DAILY 06/11/18 08/24/18 08/23/18 folic acid 1 mg PO DAILY 06/11/18 08/24/18 08/23/18 magnesium oxide 400 mg PO DAILY 06/11/18 08/24/18 08/23/18 nitroglycerin See Rx Instructions .ROUTE .COMPLEX 06/11/18 08/24/18 08/23/18 oxycodone 5 mg PO Q6 PRN 06/11/18 08/24/18 08/23/18 oxycodone [OxyContin] 20 mg PO Q12H 06/11/18 08/24/18 08/23/18 pantoprazole 40 mg PO DAILY 06/11/18 08/24/18 08/23/18 polyethylene glycol 3350 [GlycoLax] 17 g PO DAILY 06/11/18 08/24/18 08/23/18 prochlorperazine maleate 10 mg PO TID PRN 06/11/18 08/24/18 08/23/18 sucralfate 1 g PO QID 06/11/18 06/11/18 Unknown trazodone 50 mg PO BID 06/11/18 06/11/18 Unknown venlafaxine 37.5 mg PO DAILY 06/11/18 08/24/18 08/23/18 sodium chloride 0.9 % 80 ml CONTINUOUS IV INFUSION Q1H 06/12/18 08/24/18 08/23/18 #1200 ml aspirin [Aspirin Low Dose] 81 mg PO DAILY 08/24/18 08/24/18 08/23/18 atorvastatin 40 mg PO DAILY 08/24/18 08/24/18 08/23/18 carbidopa-levodopa 2 tab PO TID 08/24/18 08/24/18 08/23/18 doxycycline hyclate 100 mg PO BID 08/24/18 08/24/18 08/23/18 insulin aspart (niacinamide) 6 unit SUBCUT TIDM 08/24/18 08/24/18 08/23/18 [Fiasp FlexTouch U-100 Insulin] insulin degludec [Tresiba 36 unit SUBCUT QAM 08/24/18 08/24/18 08/23/18 FlexTouch U-200] isosorbide mononitrate 30 mg PO DAILY 08/24/18 08/24/18 08/23/18 Active Medications Generic Name Dose Route Start Last Admin Trade Name Freq PRN Reason Stop Dose Admin Ascorbic Acid 500 mg 08/25/18 09:00 08/27/18 08:31 Vitamin C PO 09/24/18 08:59 500 mg DAILY SARAH Administration Aspirin 81 mg 08/25/18 09:00 08/27/18 08:30 Ecotrin Ectab PO 09/24/18 08:59 81 mg DAILY SARAH Administration Atorvastatin Calcium 40 mg 08/25/18 09:00 08/27/18 08:30 Lipitor PO 09/24/18 08:59 40 mg DAILY SARAH Administration Carbidopa/Levodopa 2 tab 08/24/18 14:00 08/27/18 13:27 Sinemet 25/100 Mg PO 09/23/18 13:59 2 tab TID SARAH Administration Carvedilol 6.25 mg 08/24/18 21:00 08/27/18 08:30 Coreg PO 09/23/18 20:59 6.25 mg BID SARAH Administration Docusate Sodium 100 mg 08/24/18 21:00 08/27/18 08:30 Colace PO 09/23/18 20:59 100 mg BID SARAH Administration Doxycycline Hyclate 100 mg 08/26/18 21:00 08/27/18 08:31 Vibramycin PO 08/31/18 20:59 100 mg BID SARAH Administration Ferrous Sulfate 325 mg 08/25/18 09:00 08/27/18 08:30 Feosol PO 09/24/18 08:59 325 mg DAILY SARAH Administration Folic Acid 1 mg 08/25/18 09:00 08/27/18 08:30 Folvite PO 09/24/18 08:59 1 mg DAILY SARAH Administration Heparin Sodium (Porcine) 5,000 units 08/25/18 21:00 08/27/18 08:31 Heparin Sodium (Porcine) SQ 09/24/18 20:59 5,000 units Q12 SRAAH Administration Ceftriaxone Sodium 2,000 mg/ 70 mls @ 100 mls/hr 08/27/18 14:30 08/27/18 16:38 Dextrose IV 09/06/18 14:29 100 mls/hr DAILY SARAH Administration Protocol Sodium Chloride 1,000 mls @ 80 mls/hr 08/27/18 16:15 08/27/18 16:38 Nss 1000ml IV 09/26/18 16:14 80 mls/hr .[id number] SARAH Administration Insulin Degludec 36 units 08/25/18 16:00 08/27/18 08:46 Tresiba Flextouch U-100 SQ 09/24/18 15:59 36 units DAILY SARAH Administration Ioversol 120 ml 08/24/18 10:42 08/24/18 10:43 Optiray 320 125ml IV 08/28/18 10:41 120 ml ONCE PRN Administration Interaction Checking Isosorbide Mononitrate 30 mg 08/25/18 09:00 08/27/18 08:30 Imdur Extended Rel PO 09/24/18 08:59 30 mg DAILY SARAH Administration Magnesium Oxide 400 mg 08/25/18 09:00 08/27/18 08:31 Mag-Ox PO 09/24/18 08:59 400 mg DAILY SARAH Administration Ondansetron HCl 4 mg 08/24/18 13:55 08/26/18 12:28 Zofran IV 09/23/18 13:54 4 mg Q6H PRN Administration Nausea Oxycodone HCl 20 mg 08/24/18 23:00 08/27/18 08:30 Oxycontin PO 09/07/18 22:59 20 mg Q12 SARAH Administration Pantoprazole Sodium 40 mg 08/25/18 09:00 08/27/18 08:30 Protonix PO 09/24/18 08:59 40 mg DAILY SARAH Administration Polyethylene Glycol 17 gm 08/25/18 09:00 08/27/18 08:31 Miralax Powder Packet PO 09/24/18 08:59 Not Given DAILY SARAH Sucralfate 1 gm 08/24/18 13:55 08/27/18 13:27 Carafate Tab PO 09/23/18 13:54 1 gm QID SARAH Administration Trazodone HCl 50 mg 08/24/18 21:00 08/27/18 08:30 Desyrel PO 09/23/18 20:59 50 mg BID SARAH Administration Venlafaxine HCl 37.5 mg 08/25/18 09:00 08/27/18 08:30 Effexor Extended Release PO 09/24/18 08:59 37.5 mg DAILY SARAH Administration Past Medical History Medical History Coronary artery disease (Chronic) "s/p PCI ? [facility]" Hypertension (Chronic) GERD (gastroesophageal reflux disease) (Chronic) Diabetes mellitus, type 2 (Chronic) Diabetic neuropathy (Chronic) Parkinson's disease (Chronic) Recurrent urinary tract infection (Chronic) Chronic pain syndrome (Chronic) "arthritis + neuropathy" Atrial fibrillation (Chronic) "per old records" Past Family History Family History Other Myocardial infarction Past Surgical History Surgical History Status post cardiac catheterization (Chronic) Status post coronary artery stent placement (Chronic) Status post cholecystectomy (Chronic) Hx of endoscopic retrograde cholangiopancreatography June 2018 Social History Smoking Status: Never smoker Do You Dip or Chew Tobacco: No Hx Alcohol Use: No Hx Substance Use: No substance use type: does not use Physical Exam Vital Signs Last Vital Signs Temp 37.0 C 08/27/18 16:01 Pulse 78 08/27/18 16:01 Resp 18 08/27/18 16:01 BP 110/71 08/27/18 16:01 Pulse Ox 93 08/27/18 16:01 Testing Laboratory Results 08/27/18 14:39 08/27/18 07:28 PT 10.6 Seconds (9.0-12.0) 08/24/18 08:59 INR 1.0 (0.9-1.1) 08/24/18 08:59 APTT 29.8 Seconds (21.0-31.0) 08/24/18 08:59 Hemoglobin A1c 7.3 % (4.5-5.6) H 08/26/18 07:25 Urine Color Yellow 08/24/18 Unknown Urine Appearance Turbid (Clear) A 08/24/18 Unknown Urine pH 6.5 (4.5-7.5) 08/24/18 Unknown Ur Specific [place] 1.036 (1.000-1.030) H 08/24/18 Unknown Urine Protein Trace (Negative) H 08/24/18 Unknown Urine Glucose (UA) Negative (Negative) 08/24/18 Unknown Urine Ketones Negative (Negative) 08/24/18 Unknown Urine Nitrite Negative (Negative) 08/24/18 Unknown Ur Leukocyte Esterase 3+ (Negative) H 08/24/18 Unknown Urine WBC (Auto) >30 /hpf (0-5) H 08/24/18 Unknown Urine RBC (Auto) 5-10 /hpf (0-4) H 08/24/18 Unknown U Hyaline Cast (Auto) 0 /lpf (0-5) 08/24/18 Unknown U Epithel Cells (Auto) >30 /lpf (0-5) H 08/24/18 Unknown Urine Bacteria (Auto) 1+ (Negative) H 08/24/18 Unknown 08/24/18 Unknown Urine Culture - Final Urine,Clean Catch Enterobacter cloacae 08/27/18 08/27/18 11:34 07:26 POC Glucose 134 H 73 Electrocardiogram Date: 08/25/18 Findings: + NSR @ (70) and + RBBB (also seen in June) Chest X-Ray Date: 08/24/18 Findings: + NAD
[2018-08-27] MEDS: D5W AND NSS 1,000 ML IV SCH (23:43)
[2018-08-28] MEDS: INSULIN ASPART 100 UNITS/ML 3 ML PEN SC SCH ×4 (05:42→20:18)
[2018-08-28] MEDS ORDERED: DEXTROSE 50% 50 ML SYRINGE IV STA (07:47)
--- NOTE | 2018-08-28 07:52 | History & Physical Bridge Note ---
Date of Service August 28, 2018 History & Physical Bridge Note I have examined the patient, reviewed the History & Physical and in the interval since the performance of the History & Physical I have noted the following changes of clinical significance. We are planning to do an ERCP for biliary stent removal. We have discussed the risks and benefits to include bleeding, infection, perforation pancreatitis and need for follow-up exams. Informed consent was signed by the patient's power of civil attorney who is her daughter.
[2018-08-28] MEDS ORDERED: ePHEDrine sulfate 50 MG/ML AMP IV PRN (08:10)
[2018-08-28] MEDS ORDERED: ONDANSETRON INJ 2 MG/ML 2 ML VIAL IV PRN (08:10)
[2018-08-28] MEDS ORDERED: fentaNYL citrate 100 MCG/2 ML VIAL IV PRN (08:10)
[2018-08-28] MEDS ORDERED: ATROPINE SULFATE 0.1 MG/ML 10ML SYR IV PRN (08:10)
[2018-08-28] MEDS ORDERED: INDOMETHACIN 50 MG SUPP PR ONE ×2 (08:19→08:45)
[2018-08-28] MEDS ORDERED: LIDOCAINE HCL 2% 2 ML VIAL/AMP(20MG/ML) INFIL ONE (08:33)
[2018-08-28] MEDS ORDERED: PROPOFOL IV EMULSION 10 MG/ML 20 ML VIAL IV ONE (08:33)
[2018-08-28] MEDS ORDERED: SUCCINYLCHOLINE CHLORIDE 20 MG/ML 10 ML VIAL ONE (08:33)
[2018-08-28] MEDS ORDERED: ONDANSETRON INJ 2 MG/ML 2 ML VIAL ONE (08:33)
[2018-08-28] MEDS ORDERED: fentaNYL citrate 100 MCG/2 ML VIAL ONE (08:33)
[2018-08-28] MEDS: TRAZODONE HCL 50 MG TAB PO SCH (09:00)
[2018-08-28] MEDS ORDERED: PREGABALIN 50 MG CAP PO SCH (09:00)
[2018-08-28] MEDS: ASPIRIN 81 MG ECTAB PO SCH (09:00)
[2018-08-28] MEDS: CARVEDILOL 6.25 MG TAB PO SCH ×2 (09:00→20:56)
[2018-08-28] MEDS: DOCUSATE SODIUM 100 MG CAP PO SCH ×2 (09:00→20:53)
--- NOTE | 2018-08-28 09:01 | Post Operative Brief Note ---
Immediate Post Op Note v1 Date of Surgery August 28, 2018 Pre & Post Diagnosis Operation Date: 08/28/18 08:10 Pre-Op Diagnosis: Stent Removal Post-Op Diagnosis: Stent Removal bile duct stone and sludge Procedure Operation Date: 08/28/18 08:10 Actual Procedures p Endoscopic Retrograde Cholangiopancreatography with Stent Removal and Sphincterotomy(Not Applicable) - Devin Sanders Surgeon Devin Sanders Industrial Methods Consultant none Estimated Blood Loss 0 Findings Consistent with Post-Op Diagnosis
--- NOTE | 2018-08-28 09:44 | Fluoroscopy Report ---
INTRAOPERATIVE RADIOGRAPHS CLINICAL HISTORY: ERCP procedure. Duct expiration. Fluoroscopy time: 2.06 minutes. FINDINGS: 8 spot fluoroscopic views of the right upper quadrant from an ERCP procedure are correlated with MRCP dated 06/11/2018. Cholecystectomy clips are noted. There is cannulation of the common bile d uct which is dilated. A balloon sweep is performed. Suspect narrowing of the common hepatic duct at t he level of the juan hepatis. Intrahepatic biliary ductal dilatation is partially visualized. IMPRESSION: Intraoperative ERCP images as above. Correlation with the operative report is recommended . Electronically signed by: Mario Thomas M.D. 08/28/2018 9:42 AM
--- NOTE | 2018-08-28 09:49 | Anesthesiology Progress Note ---
Date of Service August 28, 2018 Anesthesia Post Procedure Vital Signs Vital Signs: Temp Pulse Pulse Pulse Resp BP BP 08/28/18 09:40 36.2 C L 76 18 163/73 H 08/28/18 09:30 81 18 150/98 H 08/28/18 09:20 82 18 156/95 H 08/28/18 09:11 35.9 C L 89 18 160/81 H 08/28/18 08:00 36.4 C L 75 20 175/80 H 08/28/18 07:21 72 08/28/18 04:08 36.6 C 73 18 111/67 08/27/18 23:55 70 08/27/18 23:47 36.5 C 75 20 122/60 08/27/18 19:39 36.6 C 83 20 150/76 H 08/27/18 17:00 76 08/27/18 16:01 37.0 C 78 18 110/71 08/27/18 12:12 36.7 C 83 19 115/74 08/27/18 09:51 82 Pulse Ox 08/28/18 09:40 96 08/28/18 09:30 98 08/28/18 09:20 100 08/28/18 09:11 97 08/28/18 08:00 93 08/28/18 07:21 08/28/18 04:08 92 08/27/18 23:55 08/27/18 23:47 92 08/27/18 19:39 93 08/27/18 17:00 08/27/18 16:01 93 08/27/18 12:12 94 08/27/18 09:51 Pain Intensity Left Leg: Pain Intensity: 0 Transfer of Care Handoff Completed per policy Notes Mental Status: alert / awake / arousable and participated in evaluation Patient Amnestic to Procedure: Yes Nausea / Vomiting: adequately controlled Pain: adequately controlled Airway Patency, RR, SpO2: stable & adequate BP & HR: stable & adequate Hydration State: stable & adequate Anesthetic Complications: no major complications apparent and Pt Satisfied with anesthetic care
[2018-08-28] MEDS ORDERED: INSULIN DEGLUDEC 100 UNITS/ML SQ ONE (10:15)
[2018-08-28 10:18] LABS: Hematocrit (blood only) 36.9 % (37-47); Hemoglobin 11.4 g/dL (12.0-16.0); Mean Corpuscular Hgb Conc 30.9 g/dL (32-36); Mean Corpuscular Volume 88.7 fL (80-100); Mean Platelet Volume 11.2 fL (7.4-10.4); Platelet Count 152 K/uL (130-400); RDW Coefficient of Variation 13.9 % (11.5-14.5); RDW Standard Deviation 45.4 fL (36.4-46.3); Red Blood Count 4.16 M/uL (4.2-5.4); White Blood Count 10.31 K/uL (4.8-10.8)
[2018-08-28] MEDS: SUCRALFATE 1 GM TAB PO SCH ×4 (10:32→20:55)
[2018-08-28] MEDS: INSULIN DEGLUDEC 100 UNITS/ML SQ SCH (10:40)
[2018-08-28 10:54] LABS: BUN Creatinine Ratio 25.3 (10-20); Calcium 8.6 mg/dl (8.5-10.1); Creatinine Clr Calc Pharmacy 46.5 ml/min; Est GFR (African American) 59.2; Est GFR (Non-African American) 51.1; Potassium 4.1 mmol/L (3.5-5.1)
[2018-08-28] MEDS: cefTRIAXone SODIUM 2,000 MG in DEXTROSE 5% 50 ML IV SCH (11:03)
[2018-08-28] MEDS: DOXYCYCLINE HYCLATE 100 MG CAP PO SCH ×2 (11:04→20:57)
[2018-08-28] MEDS: CARBIDOPA/LEVODOPA 25/100MG TAB PO SCH ×3 (11:04→20:55)
[2018-08-28] MEDS: OXYCODONE HCL 20 MG TABCR (OXYCONTIN) PO SCH ×2 (11:04→20:53)
[2018-08-28] MEDS: PANTOprazole 40 MG TAB PO SCH (11:04)
[2018-08-28] MEDS: ASCORBIC ACID 500 MG TAB PO SCH (11:05)
[2018-08-28] MEDS: MAGNESIUM OXIDE 400 MG TAB PO SCH (11:06)
[2018-08-28] MEDS: ATORVASTATIN 40 MG TAB PO SCH (11:06)
[2018-08-28] MEDS: POLYETHYLENE (MIRALAX) 17 GM PACK PO SCH (11:06)
[2018-08-28] MEDS: ISOSORBIDE MONO EXTENDED REL 30 MG TABCR PO SCH (11:06)
[2018-08-28] MEDS: VENLAFAXINE HCL XR 37.5 MG CAPXR PO SCH (11:13)
[2018-08-28] MEDS: FERROUS SULFATE 325 MG TAB PO SCH (11:13)
[2018-08-28] MEDS: FOLIC ACID 1 MG TAB PO SCH (11:14)
--- NOTE | 2018-08-28 11:27 | GI REPORT ---
Patient Name: Katya Acevedo Procedure Date: 08/28/2018 8:35 AM Date of : 1935 Admit Type: Inpatient Age: 82 Gender: Female Attending MD: Devin Sanders DO Procedure: ERCP Providers: Devin Sanders DO Referring MD: Navid Esparza, Ellis Machuca MD Indications: Stent removal Medicines: General Anesthesia Complications: No immediate complications. Estimated blood loss: Minimal. Estimated Blood Loss: Estimated blood loss was minimal. Procedure: Pre-Anesthesia Assessment: - Prior to the procedure, a History and Physical was performed, and patient medications, allergies and sensitivities were reviewed. The patient's tolerance of previous anesthesia was reviewed. - The risks and benefits of the procedure and the sedation options and risks were discussed with the patient. All questions were answered and informed consent was obtained. - Patient identification and proposed procedure were verified prior to the procedure by the physician, the nurse and the ecology teacher. The procedure was verified in the procedure room. - Pre-procedure physical examination revealed no contraindications to sedation. - ASA Grade Assessment: IV - A patient with severe systemic disease that is a constant threat to life. - After reviewing the risks and benefits, the patient was deemed in satisfactory condition to undergo the procedure. - The anesthesia plan was to use general anesthesia. - Immediately prior to administration of medications, the patient was re-assessed for adequacy to receive sedatives. - The heart rate, respiratory rate, oxygen saturations, blood pressure, adequacy of pulmonary ventilation, and response to care were monitored throughout the procedure. - The physical status of the patient was re-assessed after the procedure. After obtaining informed consent, the scope was passed under direct vision. Throughout the procedure, the patient's blood pressure, pulse, and oxygen saturations were monitored continuously. The scope was introduced through the mouth, and advanced to the duodenum and used to inject contrast into the bile duct. The ERCP was accomplished without difficulty. The patient tolerated the procedure well. Findings: A licensed sales producer film of the abdomen was obtained. Surgical clips, consistent with a previous cholecystectomy, were seen in the area of the right upper quadrant of the abdomen. A biliary stent was visible on the licensed sales producer film. The esophagus was successfully intubated under direct vision without detailed examination of the pharynx, larynx, and associated structures, and upper GI tract. The upper GI tract was grossly normal. One biliary stent originating in the biliary tree was emerging from the major papilla. The stent was partially occluded. A biliary sphincterotomy had been performed. The sphincterotomy appeared open. One stent was removed from the biliary tree using a rat-toothed forceps. The bile duct was deeply cannulated with the short-nosed traction sphincterotome and guidewire. Contrast was injected. I personally interpreted the bile duct images. Contrast extended to the hepatic ducts. A cholecystectomy had been performed. The entire biliary tree was diffusely dilated. The largest diameter was 15 mm. The main bile duct contained filling defect(s) thought to be a stone and sludge. The biliary orifice was stenotic. This appeared benign. The biliary sphincterotomy was extended with a monofilament Fusion OMNI sphincterotome using ERBE electrocautery. There was no post-sphincterotomy bleeding. To discover objects, the biliary tree was swept with an 15 mm balloon, 18 mm balloon and 20 mm balloon starting at the bifurcation multiple times. Sludge was swept from the duct. Many stones were removed. No stones remained. The endoscope was withdrawn from the patient. Indomethacin 100 mg was given via suppository to decrease the risk of post-ERCP pancreatitis (PEP). Impression: - One partially occluded stent from the biliary tree was seen in the major papilla. - Biliary papillary stenosis, benign, extension of an existing sphincterotomy. - The patient has had a cholecystectomy. - Choledocholithiasis was found. Complete removal was accomplished by biliary sphincterotomy and balloon extraction. - One stent was removed from the biliary tree. - Indomethacin given to decrease risk of post-ERCP pancreatitis. Recommendation: - [facility]. - Clear liquid diet today. - Use broad spectrum antibiotics for 5 days (Ceftriaxone as patient is currently on it). - Return to GI office PRN. Follow-up with hepatology at [facility] for further evaluation of the liver mass. Devin Sanders D.O. Devin Sanders DO 08/28/2018 11:26:27 AM This report has been signed electronically. Note Initiated On: 08/28/2018 8:35 AM Number of Addenda: 0 I attest to the content of the Intraoperative Record and orders documented therein, exceptions below {[id number]}
--- NOTE | 2018-08-28 11:34 | Communication Note ---
Date of Service: August 28, 2018 The patient underwent ERCP today. We were able to remove her existing biliary stent. She did have a large amount of stone and sludge material within her common bile duct and a markedly dilated common bile duct as well. Recommendations Clear liquid diet today Continue antibiotic coverage for 5 days, upon discharge may transition to Augmentin if needed Please call with any questions or concerns
--- NOTE | 2018-08-28 14:03 | Pharmacy Report ---
Pharmacy Glycemic Short Note 2 - Date of Service August 28, 2018 - Glycemic Short BSG Results (Last 24 hours): 08/27/18 08/27/18 08/27/18 18:30 18:34 19:02 Glucose POC Glucose 60 L* 55 L* 123 H 08/27/18 08/27/18 08/28/18 19:55 23:26 05:38 Glucose POC Glucose 85 73 86 08/28/18 08/28/18 08/28/18 07:19 07:42 08:12 Glucose POC Glucose 87 69 L* 107 H 08/28/18 08/28/18 08/28/18 09:17 10:09 11:29 Glucose 165 H POC Glucose 157 H 161 H ASSESSMENT: * had a low BSG this AM, likely due to NPO status and receiving full dose of metabolic insulin yesterday morning. Decreased today's dose by about 25%. PLAN FOR INPATIENT GLYCEMIC CONTROL: * Basal degludec * degludec 27 units today due to NPO status. Will continue her home Rx of degludec 36 tomorrow 08/29/18 * Bolus insulin * NovoLog per scale ACHS or Q6hrs while NPO * Goal Range: Low 110 mg/dL - High 140 mg/dL * Correction Factor: 15 mg/dL/unit * Nutritional / Prandial insulin per carb ratio of 1 unit per 5 grams CHO consumed
--- NOTE | 2018-08-28 14:06 | Hospitalist Progress Note ---
Date of Service August 28, 2018 Assessment & Plan (1) Left-sided chest pain: - Chest pain now resolved since admission; unclear etiology -- GERD vs. demand ischemia vs. A. fib vs. other. - Significant cardiac history, follows with [facility] Cardiology in [place] - EKG was negative; Trop x 3 also negative. - CXR and CT PE negative. - no need for additional cardiac testing per cardiology, low likelihood for ACS as cause of pain - Continue cardiac meds as prescribed. (2) Shortness of breath: - Has been stable on room air; unclear etiology -- may be related to cardiac event vs. underlying HF. - CXR and CTA were negative on admission. - BNP was WNL; - on RA (3) Coronary artery disease: - Follows with cardiology, [facility]. - Continue aspirin, statin, beta marvin, imdur as prescribed. - Significant cardiac history, 6 stents. - Cardiac work up as noted above. (4) Liver mass: - H/o TACE procedure, follows at [facility]. Recently transferred to [email or web address] due to concern for bleeding liver mass -- per [facility], was likely scarring rather than mass. Bleeding with clots was seen during CBD stent placment 06/12 - does have right upper quadrant pain intermittently - CT A/P showed enlarging right liver mass compared to prior images, now 7 cm - Patient is currently scheduled to see her bench assembler physician at [facility] Dr. Garrison in October but will probably need closer follow up. She sees Dr. Chay Garrison [phone]. I did place an order for records to be sent to Dr. Garrison's office and left a message with his audit officer Marissa asking him to review the records and contact patient's daughter Devin if he feels closer follow up is necessary. - S/p CBD stent placement on 06/12/18 -- consulted GI for removal per family request - will complicate dc to rehab if not done inpatient before leaving. GI ok with stent removal and procedure was performed 08/28. - Per GI, patient should continue abx x 5 days (5) Depression: - Continue Effexor as prescribed. (6) Hypertension: - Continue Coreg and and Imdur as prescribed. (7) Diabetes mellitus, type 2: - Hgb A1C was 12.4. - Holding home insulin; consulted pharmacy for glycemic management due to uncontrolled levels - now stable (8) Diabetic neuropathy: - Continue home meds. (9) Parkinson's disease: - Continue home Sinemet as prescribed. (10) Recurrent urinary tract infection: - Recently diagnosed, started on Doxy as outpatient as prophylaxis - UC on 08/24 + enterobacter - IV ceftriaxone, continue prophylactic doxy (11) Atrial fibrillation: - Continue Coreg as prescribed. - On pvc monitor. - Not on anticoagulation per family. (12) Iron deficiency: - Continue home ferrous sulfate daily. (13) Chronic pain syndrome: - Continue Oxycontin 20 mg q12hr. (14) GERD (gastroesophageal reflux disease): - PPI daily. (15) Colon cancer: - H/o, follows at [facility]. (16) Electrolyte abnormality: - Ca level was 10.4, ICal was WNL -- will continue to monitor. - Ca now wnl (17) DVT prophylaxis: - SCDs. Heparin 5,000 units q12hr - hold morning dose for ERCP Dispo: PT/OT recommending rehab (18) Encephalopathy: metabolic vs toxic - much improved today Patient has been receiving TID dosing of Lyrica but per daughter normally only takes bid - will hold for now. Also dc'd trazadone as patient's daughter reports she no longer takes this medication at home and it may be contributing to drowsiness Ammonia with negligible elevation, gave 1 dose lactulose as patient had been somewhat constipated anyway ABGs with some CO2 retention - pCO2 was in the 60s but compensated by HCO3 so likely this is near baseline level. Head CT negative for acute No focal findings on exam. Continue ceftriaxone for UTI Subjective Ms. Acevedo was just recently back from her CBD stent removal when I saw her this morning, still a bit groggy but better than yesterday, able to follow commands. Review of Systems Review of Systems: All systems reviewed & are unremarkable except as noted in HPI & below Physical Exam Physical Exam: General: no distress Eyes: normal inspection, PERLL Respiratory: chest non tender, clear to auscultation, normal breath sounds, no respiratory distress, no accessory muscle use Cardiac: regular rate and rhythm, no rub or gallop, systolic murmur, no edema, no jvd GI/: active bowel sounds, no abd pain or tenderness, soft, non distended Extremities: normal range of motion, normal strength, non tender Neuro/Psych: alert and oriented x 3, normal mood and affect, CN II - XII intact Skin: normal color, dry Results & Data Vital Signs (Past 12 Hours) Vital Signs Temp Pulse Pulse Pulse Resp BP BP 08/28/18 11:05 36.5 C 77 16 147/83 H 08/28/18 10:18 36.4 C L 75 18 135/69 08/28/18 09:45 36.2 C L 76 18 130/70 08/28/18 09:40 36.2 C L 76 18 163/73 H 08/28/18 09:30 81 18 150/98 H 08/28/18 09:20 82 18 156/95 H 08/28/18 09:11 35.9 C L 89 18 160/81 H 08/28/18 08:00 36.4 C L 75 20 175/80 H 08/28/18 07:21 72 08/28/18 04:08 36.6 C 73 18 111/67 Pulse Ox 08/28/18 11:05 95 08/28/18 10:18 94 08/28/18 09:45 96 08/28/18 09:40 96 08/28/18 09:30 98 08/28/18 09:20 100 08/28/18 09:11 97 08/28/18 08:00 93 08/28/18 07:21 08/28/18 04:08 92 PG Care Time/CCT Total # of Minutes Spent Total Time Spent with Patient: Total time spent is greater than 50% in coordination of care (as documented) at patient's floor/unit and/or counseling patient:
[2018-08-28] MEDS ORDERED: Nursing to Pharmacy Communication ONE (15:01)
[2018-08-28] MEDS: D5W AND NSS 1,000 ML IV SCH (15:35)
[2018-08-28] MEDS: HEPARIN SOD 5,000 UNIT/0.5 ML VIAL SQ SCH (20:59)
[2018-08-29] MEDS: ASCORBIC ACID 500 MG TAB PO SCH (08:00)
[2018-08-29] MEDS: DOXYCYCLINE HYCLATE 100 MG CAP PO SCH (08:00)
[2018-08-29] MEDS: ATORVASTATIN 40 MG TAB PO SCH (08:00)
[2018-08-29] MEDS: VENLAFAXINE HCL XR 37.5 MG CAPXR PO SCH (08:00)
[2018-08-29] MEDS: MAGNESIUM OXIDE 400 MG TAB PO SCH (08:00)
[2018-08-29] MEDS: FOLIC ACID 1 MG TAB PO SCH (08:01)
[2018-08-29] MEDS: SUCRALFATE 1 GM TAB PO SCH ×2 (08:01→13:21)
[2018-08-29] MEDS: ISOSORBIDE MONO EXTENDED REL 30 MG TABCR PO SCH (08:01)
[2018-08-29] MEDS: PANTOprazole 40 MG TAB PO SCH (08:01)
[2018-08-29] MEDS: CARVEDILOL 6.25 MG TAB PO SCH (08:01)
[2018-08-29] MEDS: ASPIRIN 81 MG ECTAB PO SCH (08:02)
[2018-08-29] MEDS: FERROUS SULFATE 325 MG TAB PO SCH (08:02)
[2018-08-29] MEDS: CARBIDOPA/LEVODOPA 25/100MG TAB PO SCH ×2 (08:02→13:20)
[2018-08-29] MEDS: HEPARIN SOD 5,000 UNIT/0.5 ML VIAL SQ SCH (08:10)
[2018-08-29] MEDS: OXYCODONE HCL 20 MG TABCR (OXYCONTIN) PO SCH (08:10)
[2018-08-29] MEDS: POLYETHYLENE (MIRALAX) 17 GM PACK PO SCH (08:10)
[2018-08-29] MEDS: DOCUSATE SODIUM 100 MG CAP PO SCH (08:10)
[2018-08-29] MEDS: INSULIN ASPART 100 UNITS/ML 3 ML PEN SC SCH ×2 (08:12→13:19)
[2018-08-29 08:28] LABS: Hematocrit (blood only) 35.7 % (37-47); Mean Corpuscular Hgb Conc 30.8 g/dL (32-36); Mean Platelet Volume 11.3 fL (7.4-10.4); Platelet Count 163 K/uL (130-400); RDW Coefficient of Variation 13.9 % (11.5-14.5); RDW Standard Deviation 45.4 fL (36.4-46.3); Red Blood Count 4.01 M/uL (4.2-5.4); White Blood Count 5.15 K/uL (4.8-10.8)
[2018-08-29] MEDS ORDERED: INSULIN DEGLUDEC 100 UNITS/ML SQ SCH ×2 (09:00)
[2018-08-29] MEDS: cefTRIAXone SODIUM 2,000 MG in DEXTROSE 5% 50 ML IV SCH (09:00)
[2018-08-29 09:02] LABS: BUN Creatinine Ratio 22.7 (10-20); Calcium 8.9 mg/dl (8.5-10.1); Creatinine Clr Calc Pharmacy 54.7 ml/min; Est GFR (African American) 71.9; Potassium 3.8 mmol/L (3.5-5.1)
--- NOTE | 2018-08-29 12:09 | Pharmacy Report ---
Pharmacy Glycemic Short Note 2 - Date of Service August 29, 2018 - Glycemic Short BSG Results (Last 24 hours): 08/28/18 08/28/18 08/29/18 16:39 20:12 07:37 Glucose POC Glucose 179 H 103 H 62 L* 08/29/18 08/29/18 08/29/18 07:38 08:11 11:39 Glucose 110 H POC Glucose 70 149 H ASSESSMENT: * had a low BSG this AM, likely due to reduced PO intake and NPO status yesterday. Basal insulin dose was reduced yesterday to 27 units (outpatient dosing is 36 units) however patient still had low BSG this morning * Will reduce basal insulin dosing further this morning to prevent low tomorrow. PLAN FOR INPATIENT GLYCEMIC CONTROL: * Basal degludec (patient own medication) * decrease degludec to 25 units SQ daily. Will continue to titrate based on AM fasting BSG * Bolus insulin: no change * NovoLog per scale ACHS or Q6hrs while NPO * Goal Range: Low 110 mg/dL - High 140 mg/dL * Correction Factor: 15 mg/dL/unit * Nutritional / Prandial insulin per carb ratio of 1 unit per 5 grams CHO consumed
--- NOTE | 2018-08-29 13:55 | Hospitalist Progress Note ---
Date of Service August 29, 2018 Assessment & Plan (1) Left-sided chest pain: - Chest pain now resolved since admission; unclear etiology -- GERD vs. demand ischemia vs. A. fib vs. other. - Significant cardiac history, follows with [facility]iology in [place] - EKG was negative; Trop x 3 also negative. - CXR and CT PE negative. - no need for additional cardiac testing per cardiology, low likelihood for ACS as cause of pain - Continue cardiac meds as prescribed. (2) Shortness of breath: - Has been stable on room air; unclear etiology -- may be related to cardiac event vs. underlying HF. - CXR and CTA were negative on admission. - BNP was WNL; - on RA (3) Coronary artery disease: - Follows with cardiology, [facility]. - Continue aspirin, statin, beta marvin, imdur as prescribed. - Significant cardiac history, 6 stents. - Cardiac work up as noted above. (4) Liver mass: - H/o TACE procedure, follows at [facility]. Recently transferred to [facility] due to concern for bleeding liver mass -- per [facility], was likely scarring rather than mass. Bleeding with clots was seen during CBD stent placment 06/12 - does have right upper quadrant pain intermittently - CT A/P showed enlarging right liver mass compared to prior images, now 7 cm - Patient is currently scheduled to see her human resources designate physician at [facility] in October but will probably need closer follow up. She sees Dr. Chay Garrison [phone]. I did place an order for records to be sent to Dr. Garrison's office and left a message with his virtual office assistant Marissa asking him to review the records and contact patient's daughter Devin if he feels closer follow up is necessary. - S/p CBD stent placement on 06/12/18 -- consulted GI for removal per family request - will complicate dc to rehab if not done inpatient before leaving. GI ok with stent removal and procedure was performed 08/28. - Per GI, patient should continue abx x 5 days (5) Depression: - Continue Effexor as prescribed. (6) Hypertension: - Continue Coreg and and Imdur as prescribed. (7) Diabetes mellitus, type 2: - Hgb A1C was 12.4. - Holding home insulin; consulted pharmacy for glycemic management due to uncontrolled levels - now stable (8) Diabetic neuropathy: - Continue home meds. (9) Parkinson's disease: - Continue home Sinemet as prescribed. (10) Recurrent urinary tract infection: - Recently diagnosed, started on Doxy as outpatient as prophylaxis - UC on 08/24 + enterobacter - IV ceftriaxone, continue prophylactic doxy (11) Atrial fibrillation: - Continue Coreg as prescribed. - On electronic device monitor. - Not on anticoagulation per family. (12) Iron deficiency: - Continue home ferrous sulfate daily. (13) Chronic pain syndrome: - Continue Oxycontin 20 mg q12hr. (14) GERD (gastroesophageal reflux disease): - PPI daily. (15) Colon cancer: - H/o, follows at [facility]. (16) Electrolyte abnormality: - Ca level was 10.4, ICal was WNL -- will continue to monitor. - Ca now wnl (17) DVT prophylaxis: - SCDs. Heparin 5,000 units q12hr - hold morning dose for ERCP Dispo: PT/OT recommending rehab (18) Encephalopathy: toxic - much improved Patient has been receiving TID dosing of Lyrica but per daughter normally only takes bid - will hold Lyrica for now. Also dc'd trazadone as patient's daughter reports she no longer takes this medication at home and it may be contributing to drowsiness Ammonia with negligible elevation, gave 1 dose lactulose as patient had been somewhat constipated anyway ABGs with some CO2 retention - pCO2 was in the 60s but compensated by HCO3 so likely this is near baseline level. Head CT negative for acute No focal findings on exam. Continue ceftriaxone for UTI Subjective Ms. Acevedo is much more awake today. Continues to have some upper right quadrant discomfort but otherwise no complaints. Review of Systems Review of Systems: All systems reviewed & are unremarkable except as noted in HPI & below Physical Exam Physical Exam: General: no distress Eyes: normal inspection, PERLL Respiratory: chest non tender, clear to auscultation, normal breath sounds, no respiratory distress, no accessory muscle use Cardiac: regular rate and rhythm, no rub or gallop, systolic murmur, no edema, no jvd GI/: active bowel sounds, right upper quadrant tenderness, soft, non distended Extremities: normal range of motion, normal strength, non tender Neuro/Psych: alert and oriented x 3, normal mood and affect Skin: normal color, dry Results & Data Vital Signs (Past 12 Hours) Vital Signs Temp Pulse Pulse Pulse Resp BP Pulse Ox 08/29/18 07:41 73 08/29/18 07:14 36.0 C L 79 20 179/80 H 95 08/29/18 04:46 36.5 C 80 20 141/82 H 98 PG Care Time/CCT Total # of Minutes Spent Total Time Spent with Patient: Total time spent is greater than 50% in coordination of care (as documented) at patient's floor/unit and/or counseling patient:
--- NOTE | 2018-08-29 14:19 | Gastroenterology Progress Note ---
Date of Service August 29, 2018 Assessment & Plan (1) Cirrhosis: Cirrhosis with liver mass ? HCC or other cancer. Pt following with specialists in [place]. Would defer management to their group, though we would be happy to provide biliary endoscopy when indicated. (2) Common bile duct obstruction: Post ERCP day #1 for stent removal. Will check LFTs. Advance diet as tolerated. Continue antibiotic coverage for a total of 5 days post procedure GI will sign off. Supervising Physician Co-Signing Physician Notes I saw and evaluated the patient. She reports some aching in the abdomen but otherwise is improved from yesterday. Recommendations Hepatic function panel ordered Continue broad-spectrum antibiotics for a total of 5 days to prevent post ERCP cholangitis Please call with any questions or concerns Subjective Denies pain. C/o some "bad dreams." Taking liquids po w/o any pain or nausea. Review of Systems Constitutional: + weakness (Improved. Able to sit up in a chair at beside. ); no fever, no chills and no body aches Cardiovascular: + chest pain (resolved since arrival) Gastrointestinal: no abdominal pain Musculoskeletal: + back pain Integumentary: no jaundice Neurologic: + generalized weakness Physical Exam Constitutional: WD/WN, vitals as above + obese and + behavioral limitations (age and illness related, needs help when tranferring et) Cardiovascular: RRR, no murmur, no edema Gastrointestinal (Abdomen): normal bowel sounds, soft, nontender, no hepatosplenomegaly obese Skin: no rashes, warm and dry Neurologic: patellar DTR's 2+ bilat, sensation intact Results & Data Vital Signs (Past 12 Hours) Vital Signs Temp Pulse Pulse Pulse Resp BP Pulse Ox 08/29/18 07:41 73 08/29/18 07:14 36.0 C L 79 20 179/80 H 95 08/29/18 04:46 36.5 C 80 20 141/82 H 98
[2018-08-29 14:38] LABS: Bilirubin Direct 0.2 mg/dl (0-0.2); Bilirubin,Total 0.4 mg/dl (0.2-1); Total Protein 6.7 gm/dl (6.4-8.2)
--- NOTE | 2018-08-29 14:55 | Post Operative Brief Note ---
Immediate Post Op Note v1 Date of Surgery August 28, 2018 Pre & Post Diagnosis Operation Date: 08/28/18 08:10 Pre-Op Diagnosis: Stent Removal Post-Op Diagnosis: Stent Removal Procedure Operation Date: 08/28/18 08:10 Actual Procedures p Endoscopic Retrograde Cholangiopancreatography with Stent Removal and Sphincterotomy(Not Applicable) - Devin Sanders Surgeon Devin Sanders Setter Off none Estimated Blood Loss 0 Findings Consistent with Post-Op Diagnosis
--- NOTE | 2018-08-29 15:13 | Discharge Summary ---
Date of Service August 29, 2018 Admission HPI Per Admitting Provider 82 y/o F c/o chest and abd pain. Pt states that the chest pain woke her around 2am. It was L sided but not radiating anywhere. She took a nitro and it resolved. She had a repeat episode that was similar but less intense around 4a. She took another nitro and it also resolved. She states that this chest pain was different from when she has required stents in the past. She has had no further chest pain. Around 5:30a pt started having R sided abd pain along entire lateral R side. She has never had pain like this prior. No n/v/c/d. She states she has been having these pains on and off the last 3-4 days. Sometimes it is after eating, sometimes several hours s/p PO. She takes prochlorperazine when she has these pains and it resolves. Family states that pt has been more weak the last few days. She has had issues with some SOB at rest that resolves spontaneously. She has had issues with LE swelling, although there is none present today. Pt was transferred from [facility] to [facility] on 06/07 due to a liver mass that was concerning for bleeding. Pt has hx of colon ca with liver mets. She had been cancer free for 7 years. She was transferred to [facility], however family states that she did not end up needing a procedure for her liver. They were told that this mass that had been seen on imaging here was scarring and not active cancer. She has a f/u in [facility] in October. She follows with Dr. Machuca for GI locally, but does not have local oncology. Pt states that she does feel better now than when she came to the ED s/p pain medication. Principal Diagnosis Chest pain Discharge Exam Constitutional WD/WN, vitals as above Respiratory normal respiratory effort, lungs clear to auscultation Cardiovascular RRR, no murmur, no edema Gastrointestinal (Abdomen) normal bowel sounds, soft, nontender, no hepatosplenomegaly Musculoskeletal generalized weakness Skin no rashes, warm and dry Neurologic moves all extremities and awake Psychiatric A+Ox3, euthymic affect Discharge Data Allergies Allergy/AdvReac Type Severity Reaction Status Date / Time Iodinated Contrast- Oral and Allergy Intermediate IV Verified 08/24/18 08:49 IV Dye CONTRAST- HIVES mivacurium Allergy Mild dizzy, Verified 08/24/18 08:49 nauseous (per patient) Bactrim Allergy Unknown patient Verified 09/21/16 05:17 unsure Cipro Allergy Unknown unknown Verified 09/21/16 05:17 ciprofloxacin Allergy Unknown unknown Verified 08/24/18 08:49 nitrofurantoin Allergy Unknown unknown Verified 08/24/18 08:49 sulfamethoxazole Allergy Unknown patient Verified 08/24/18 08:49 unsure trimethoprim Allergy Unknown patient Verified 08/24/18 08:49 unsure acarbose AdvReac Mild GI SYMPTOMS Verified 08/24/18 08:49 insulin glargine AdvReac Mild "Very ill" Verified 08/24/18 08:49 [From Lantus U-100 Insulin] - see comments metformin AdvReac Mild GI SYMPTOMS Verified 08/24/18 08:49 Penicillins AdvReac Mild dizzy, Verified 08/24/18 08:49 nausous (per patient) tolerated zosyn [id number] troglitazone AdvReac Mild GI SYMPTOMS Verified 08/24/18 08:49 Consultations 08/24/18 11:59 ED Decision to Admit Stat 08/24/18 13:55 Consult Case Management - Discharge Planning Routine 08/25/18 09:02 Consult Cardiology Routine 08/25/18 09:06 Consult Health Information Management Routine 08/26/18 15:43 Consult Gastroenterology Routine 08/28/18 10:17 Consult Health Information Management Routine Procedures Performed Operation Date: 08/28/18 08:10 Actual Procedures p Endoscopic Retrograde Cholangiopancreatography with Stent Removal and Sphincterotomy(Not Applicable) - Devin Sanders Ordered Studies 08/24/18 09:43 CT abd pelvis IV con only Stat CT angio chest PE protocol Stat 08/27/18 14:17 CT head/brain wo con Urgent 08/28/18 07:00 FL ERCP biliary ductal Routine Hospital Course (1) Left-sided chest pain: - Chest pain now resolved since admission; unclear etiology -- GERD vs. demand ischemia vs. A. fib vs. other. - Significant cardiac history, follows with [facility] in [place] - EKG was negative; Trop x 3 also negative. - CXR and CT PE negative. - no need for additional cardiac testing per cardiology, low likelihood for ACS as cause of pain - Continue cardiac meds as prescribed. (2) Shortness of breath: - Has been stable on room air; unclear etiology -- may be related to cardiac event vs. underlying HF. - CXR and CTA were negative on admission. - BNP was WNL; - on RA (3) Coronary artery disease: - Follows with cardiology, [facility]. - Continue aspirin, statin, beta marvin, imdur as prescribed. - Significant cardiac history, 6 stents. - Cardiac work up as noted above. (4) Liver mass: - H/o TACE procedure, follows at [facility]. Recently transferred to [facility] due to concern for bleeding liver mass. Bleeding with clots was seen during CBD stent placement 06/12 - does have right upper quadrant pain intermittently - CT A/P showed enlarging right liver mass compared to prior images, now 7 cm - Patient is currently scheduled to see her admissions coordinator physician at [facility] in October but will need closer follow up. She sees Dr. Chay Garrison [phone]. I did place an order for records to be sent to Dr. Garrison's office and left a message with his combat information center officer Marissa asking him to review the records and contact patient's daughter Devin if he feels closer follow up is necessary. - S/p CBD stent placement on 06/12/18 -- consulted GI for removal per family request - will complicate dc to rehab if not done inpatient before leaving. GI ok with stent removal and procedure was performed 08/28. - Per GI, patient should continue abx x 5 days - Ceftriaxone IV due to multiple antibiotic intolerances - AST trending down, alk phos near 700 - due to likely neoplastic process in the liver given growth of mass. (5) Depression: - Continue Effexor as prescribed. (6) Hypertension: - Continue Coreg and and Imdur as prescribed. (7) Diabetes mellitus, type 2: - Hgb A1C was 12.4. - Holding home insulin; consulted pharmacy for glycemic management due to uncontrolled levels - now stable - restart home insulin for discharge but will likely need monitored and titrated at rehab facility given history of poor control. (8) Diabetic neuropathy: - Lyrica held while inpatient due to ams - resume at discharge (9) Parkinson's disease: - Continue home Sinemet as prescribed. (10) Recurrent urinary tract infection: - Recently diagnosed, started on Doxy as outpatient as prophylaxis - UC on 08/24 + enterobacter - IV ceftriaxone, continue prophylactic doxy (11) Atrial fibrillation: - Continue Coreg as prescribed. - On bosom presser. - Not on anticoagulation per family. (12) Iron deficiency: - Continue home ferrous sulfate daily. (13) Chronic pain syndrome: - Continue Oxycontin 20 mg q12hr. (14) GERD (gastroesophageal reflux disease): - PPI daily. (15) Colon cancer: - H/o, follows at [facility]. (16) Electrolyte abnormality: - Ca level was 10.4, ICal was WNL on admission - Ca now wnl (17) DVT prophylaxis: - SCDs. Heparin 5,000 inpatient Dispo: [facility] [place] (18) Encephalopathy: toxic - much improved Patient has been receiving TID dosing of Lyrica but per daughter normally only takes bid - held Lyrica but will start for discharge. Also dc'd trazadone as patient's daughter reports she no longer takes this medication at home and it may be contributing to drowsiness Ammonia with negligible elevation, gave 1 dose lactulose as patient had been somewhat constipated anyway ABGs with some CO2 retention - pCO2 was in the 60s but compensated by HCO3 so likely this is near baseline level. Head CT negative for acute No focal findings on exam. Continue ceftriaxone for UTI Total Time Total Time Spent Total Time Spent (In Minutes): greater than 30 minutes Discharge Plan Discharge Items Patient Disposition: Transfer Inpatient Rehab Fac Reason For Visit: chest pain Discharge Diagnosis: Chest pain Discharge Goals: Decrease discomfort Activity: Resume your previous activity Non-emergency contact: Primary Care Provider Call non-emergency contact if: you have any medication questions and your symptoms worsen Follow-up/Referrals: Krishna Villanueva [Primary Care Provider] - Diet: Carb Consistent or DM2 and Heart Healthy Addtl Provider Instructions: Please follow up with Dr. Garrison's office to see when he would like you to follow up concerning your liver mass this week. Prescriptions: New ceftriaxone 1 gram recon soln 1 gm IV DAILY Qty: 3 RF: 0 Lyrica 50 mg Capsule 50 mg PO BID Qty: 6 RF: 0 oxycodone [OxyContin] 20 mg Tablet,Oral Only,Ext.Rel.12 Hr 20 mg PO Q12H Qty: 6 RF: 0 Continued venlafaxine 37.5 mg Capsule,Extended Release 24hr 37.5 mg PO DAILY RF: 0 sucralfate 1 gram Tablet 1 g PO QID RF: 0 prochlorperazine maleate 10 mg Tablet 10 mg PO TID PRN (Reason: nausea/vomiting) RF: 0 docusate sodium 100 mg Capsule 100 mg PO BID RF: 0 carvedilol 6.25 mg Tablet 6.25 mg PO BID RF: 0 ascorbic acid (vitamin C) 500 mg Tablet 500 mg PO DAILY RF: 0 pantoprazole 40 mg Tablet,Delayed Release (Dr/Ec) 40 mg PO DAILY RF: 0 ferrous sulfate 325 mg (65 mg iron) Tablet 325 mg PO DAILY RF: 0 nitroglycerin 0.4 mg Tablet, Sublingual See Rx Instructions .ROUTE .COMPLEX RF: 0 folic acid 1 mg Tablet 1 mg PO DAILY RF: 0 polyethylene glycol 3350 [GlycoLax] 17 gram/dose Powder 17 g PO DAILY RF: 0 magnesium oxide 400 mg magnesium Tablet 400 mg PO DAILY RF: 0 atorvastatin 40 mg Tablet 40 mg PO DAILY RF: 0 doxycycline hyclate 100 mg Capsule 100 mg PO BID RF: 0 isosorbide mononitrate 30 mg Tablet Extended Release 24 Hr 30 mg PO DAILY RF: 0 aspirin [Aspirin Low Dose] 81 mg Tablet,Delayed Release (Dr/Ec) 81 mg PO DAILY RF: 0 carbidopa-levodopa 25-100 mg Tablet 2 tab PO TID RF: 0 Tresiba FlexTouch U-200 200 unit/mL (3 mL) Insulin Pen 36 unit SUBCUT QAM RF: 0 Fiasp FlexTouch U-100 Insulin 100 unit/mL (3 mL) Insulin Pen 6 unit SUBCUT TIDM RF: 0 Discontinued trazodone 50 mg Tablet 50 mg PO BID RF: 0 oxycodone 5 mg Tablet 5 mg PO Q6 PRN (Reason: Pain) RF: 0 sodium chloride 0.9 % parenteral solution 80 ml continuous IV infusion Q1H Qty: 1200 RF: 0 Stand-Alone Forms: [facility], [facility] Discharge Orders: Discharge Order (Routine); Ordered 08/29/18 Ordered By: Hortencia Grant Skilled Items Patient informed of condition?: Yes DNR: No Discharge Level of Care: Acute rehab Communicable Disease: No Discharge Prognosis: Stable Admission Data Admit Date/Time: 08/25/18 15:26 Attending Provider: Navid Esparza Admit Provider: Joseline Downing Primary Care Provider: Krishna Villanueva Other Providers: Jason Hendricks ; Joseline Downing ; Akbar Parker ; Ellis Machuca Service: Telemetry Medical
[2018-08-29 15:14] LABS: Bilirubin Direct 0.2 mg/dl (0-0.2); Bilirubin,Total 0.3 mg/dl (0.2-1); Total Protein 6.7 gm/dl (6.4-8.2)
== END 2018-08-29 16:08 | DRG 308 ==
LOC: ED 08:22 → 2W 08:22 → SUATTDRO 12:51 → 2W 13:35 → SUATTDRO 08-25 15:26

== ENCOUNTER 2018-09-14 20:06 | Inpatient (IN) ==
[2018-09-14] MEDS ORDERED: NITROGLYCERIN 2% OINTMENT 30GM TUBE EXT STA (20:19)
[2018-09-14] MEDS ORDERED: ASPIRIN CHEW 324 MG PO STA (20:19)
[2018-09-14 20:30] LABS: Basophils # (auto) 0.02 K/uL (0-0.2); Basophils % (auto) 0.3 %; Eosinophils # (auto) 0.21 K/uL (0-0.5); Eosinophils % (auto) 3.1 %; Hematocrit (blood only) 36.8 % (37-47); Hemoglobin 11.4 g/dL (12.0-16.0); Immature Granulocytes # (auto) 0.01 K/uL (0.00-0.02); Immature Granulocytes % (auto) 0.1 %; Lymphocytes % (auto) 17.5 %; Mean Corpuscular Volume 90.9 fL (80-100); Mean Platelet Volume 12.5 fL (7.4-10.4); Monocytes % (auto) 7.3 %; Neutrophils # (auto) 4.91 K/uL (1.4-6.5); Neutrophils % (auto) 71.7 %; Platelet Count 149 K/uL (130-400); RDW Coefficient of Variation 15.3 % (11.5-14.5); RDW Standard Deviation 50.9 fL (36.4-46.3); Red Blood Count 4.05 M/uL (4.2-5.4); White Blood Count 6.85 K/uL (4.8-10.8)
[2018-09-14 20:43] LABS: Albumin Level 2.7 gm/dl (3.4-5.0); Aspartate Aminotransferase 155 U/L (15-37); BUN Creatinine Ratio 19.3 (10-20); Blood Urea Nitrogen 18 mg/dl (7-18); Carbon Dioxide 31 mmol/L (21-32); Chloride 103 mmol/L (98-107); Creatinine Clr Calc Pharmacy 46.4 ml/min; Est GFR (African American) 65.4; Est GFR (Non-African American) 56.4; Glucose 147 mg/dl (70-99); Potassium 4.1 mmol/L (3.5-5.1); Sodium 141 mmol/L (136-145)
[2018-09-14 20:48] LABS: Alanine Aminotransferase 69 U/L (12-78); Albumin Globulin Ratio 0.6 (0.9-2); Alkaline Phosphatase 991 U/L (45-117); Bilirubin,Total 1.3 mg/dl (0.2-1); Globulin 4.9 gm/dl (2.5-4.0); Total Protein 7.6 gm/dl (6.4-8.2); Troponin I < 0.015 ng/ml (0-0.045)
[2018-09-14] MEDS ORDERED: OXYCODONE HCL IR 5 MG TAB (IMMEDIATE RELEASE) PO STA (20:56)
[2018-09-14] MEDS: NITROGLYCERIN 2% OINTMENT 30GM TUBE EXT SCH (21:05)
--- NOTE | 2018-09-14 21:25 | XRay Report ---
SINGLE VIEW CHEST CLINICAL HISTORY: Atypical chest pain. FINDINGS: An AP, portable, upright chest radiograph is compared to chest x-ray and chest CT dated 08/06. The examination is degraded by portable technique and patient rotation. The skeletal struct ures are osteopenic. The heart is enlarged and there is atherosclerotic calcification of the thoracic aorta. The pulmonary vasculature is noncongested. Chronic interstitial thickening is similar to prev ious. No airspace consolidation or large pleural effusion is identified. No pneumothorax is seen. The skeletal structures are osteopenic. The bony thorax is grossly intact. IMPRESSION: Mild cardiomegaly with no acute cardiopulmonary abnormality. Electronically signed by: Mario Thomas M.D. 09/14/2018 9:23 PM
[2018-09-14] MEDS ORDERED: LABETALOL HCL IV 5 MG/ML 20ML IV STA (22:15)
--- NOTE | 2018-09-14 23:32 | Emergency Department Note ---
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 She reports that the symptoms began as bilateral chest pain, but she now feels the pain in only the right side. The patient notes that the symptoms feel similar to those she experienced during her last heart attack in 2001. She complains of nausea and SOB. The patient denies any arm or jaw pain. She notes that she had sublingual nitroglycerin GEOPHYSICS TEACHER, and it provided minimal relief. EMS notes that she was given Zofran GEOPHYSICS TEACHER. EMS denies giving her Aspirin GEOPHYSICS TEACHER. She denies being on oxygen at home. She notes that she only missed her nighttime medications. Home Medications Home Medications Medication Instructions Recorded Confirmed Type ascorbic acid (vitamin C) 500 mg PO BID 06/11/18 09/14/18 History carvedilol 6.25 mg PO BIDM 06/11/18 09/14/18 History docusate sodium 100 mg PO BID 06/11/18 09/14/18 History folic acid 1 mg PO DAILY 06/11/18 09/14/18 History magnesium oxide 400 mg PO DAILY 06/11/18 09/14/18 History nitroglycerin See Rx Instructions .ROUTE .COMPLEX 06/11/18 09/14/18 History pantoprazole 40 mg PO QAM 06/11/18 09/14/18 History sucralfate 1 g PO QID 06/11/18 09/14/18 History Fiasp FlexTouch U-100 Insulin 2 unit SUBCUT UD 08/24/18 09/14/18 History Tresiba FlexTouch U-200 27 unit SUBCUT QAM 08/24/18 09/14/18 History aspirin [Aspirin Low Dose] 81 mg PO HS 08/24/18 09/14/18 History atorvastatin 40 mg PO DAILY 08/24/18 09/14/18 History carbidopa-levodopa 2 tab PO TID 08/24/18 09/14/18 History isosorbide mononitrate 30 mg PO DAILY 08/24/18 09/14/18 History oxycodone [OxyContin] 20 mg PO Q12H #6 tab 08/29/18 09/14/18 Rx pregabalin [Lyrica] 50 mg PO BID #6 cap 08/29/18 09/14/18 Rx iron polysac-iron heme polypep 150 mg PO HS 09/14/18 09/14/18 History oxycodone 5 mg PO Q6H PRN 09/14/18 09/14/18 History venlafaxine 12.5 mg PO TID 09/14/18 09/14/18 History Allergies Allergy/AdvReac Type Severity Reaction Status Date / Time Iodinated Contrast- Oral and Allergy Intermediate IV Verified 08/24/18 08:49 IV Dye CONTRAST- HIVES mivacurium Allergy Mild dizzy, Verified 08/24/18 08:49 nauseous (per patient) Bactrim Allergy Unknown patient Verified 09/21/16 05:17 unsure Cipro Allergy Unknown unknown Verified 09/21/16 05:17 ciprofloxacin Allergy Unknown unknown Verified 08/24/18 08:49 nitrofurantoin Allergy Unknown unknown Verified 08/24/18 08:49 sulfamethoxazole Allergy Unknown patient Verified 08/24/18 08:49 unsure trimethoprim Allergy Unknown patient Verified 08/24/18 08:49 unsure acarbose AdvReac Mild GI SYMPTOMS Verified 08/24/18 08:49 insulin glargine AdvReac Mild "Very ill" Verified 08/24/18 08:49 [From Lantus U-100 Insulin] - see comments metformin AdvReac Mild GI SYMPTOMS Verified 08/24/18 08:49 Penicillins AdvReac Mild dizzy, Verified 08/24/18 08:49 nausous (per patient) tolerated zosyn [id number] troglitazone AdvReac Mild GI SYMPTOMS Verified 08/24/18 08:49 Past Med/Surg History Medical History Coronary artery disease (Chronic) "s/p PCI ? Ace" Hypertension (Chronic) GERD (gastroesophageal reflux disease) (Chronic) Diabetes mellitus, type 2 (Chronic) Diabetic neuropathy (Chronic) Parkinson's disease (Chronic) Recurrent urinary tract infection (Chronic) Chronic pain syndrome (Chronic) "arthritis + neuropathy" Atrial fibrillation (Chronic) "per old records" Surgical History Status post cardiac catheterization (Chronic) Status post coronary artery stent placement (Chronic) Status post cholecystectomy (Chronic) Hx of endoscopic retrograde cholangiopancreatography June 2018 Family History Other Myocardial infarction Social History Preferred Language: Belarusian Communication Ability: Effective 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 and A total of 10 systems reviewed and were otherwise negative Physical Exam Vital Signs Vital Signs - 24 hr 09/14/18 20:19 09/14/18 20:22 09/14/18 20:38 Temperature 36.7 C Temperature Source Oral Sepsis Recent Fever Within 48 Hours No Sepsis New/Unexplained Change in Mental Status No Sepsis Action Taken by Nursing No Action Required Oxygen Flow Rate - Titration 2 Pulse Oximetry Post Tiitration 98 Pulse Rate 72 73 Pulse Rate [Apical] Pulse Rate from SpO2 Sensor 71 Respiratory Rate 17 20 Respiratory Effort / Characteristics Respiratory Depth Respiratory Pattern Blood Pressure 217/109 H 217/109 H Blood Pressure [Right Arm] Blood Pressure Mean 145 145 Blood Pressure Mean [Right Arm] Blood Pressure Position [Right Arm] Pulse Oximetry 100 98 98 Oxygen Delivery Method Room Air Nasal Cannula Oxygen Flow Rate 09/14/18 20:46 09/14/18 20:50 09/14/18 20:55 Temperature Temperature Source Sepsis Recent Fever Within 48 Hours Sepsis New/Unexplained Change in Mental Status Sepsis Action Taken by Nursing Oxygen Flow Rate - Titration Pulse Oximetry Post Tiitration Pulse Rate 80 74 78 Pulse Rate [Apical] Pulse Rate from SpO2 Sensor 78 72 77 Respiratory Rate 20 20 20 Respiratory Effort / Characteristics Respiratory Depth Respiratory Pattern Blood Pressure 224/94 H 228/93 H 213/91 H Blood Pressure [Right Arm] Blood Pressure Mean 137 138 131 Blood Pressure Mean [Right Arm] Blood Pressure Position [Right Arm] Pulse Oximetry 100 91 Oxygen Delivery Method Oxygen Flow Rate 09/14/18 21:00 09/14/18 21:01 09/14/18 21:05 Temperature Temperature Source Sepsis Recent Fever Within 48 Hours Sepsis New/Unexplained Change in Mental Status Sepsis Action Taken by Nursing Oxygen Flow Rate - Titration Pulse Oximetry Post Tiitration Pulse Rate 74 83 Pulse Rate [Apical] 73 Pulse Rate from SpO2 Sensor 73 Respiratory Rate 20 20 20 Respiratory Effort / Characteristics Respiratory Depth Respiratory Pattern Blood Pressure 227/92 H 229/95 H Blood Pressure [Right Arm] 227/92 H Blood Pressure Mean 137 139 Blood Pressure Mean [Right Arm] 137 Blood Pressure Position [Right Arm] Pulse Oximetry 98 100 Oxygen Delivery Method Nasal Cannula Oxygen Flow Rate 2 09/14/18 21:20 09/14/18 21:25 09/14/18 23:00 Temperature Temperature Source Sepsis Recent Fever Within 48 Hours Sepsis New/Unexplained Change in Mental Status Sepsis Action Taken by Nursing Oxygen Flow Rate - Titration Pulse Oximetry Post Tiitration Pulse Rate 75 Pulse Rate [Apical] 75 Pulse Rate from SpO2 Sensor 75 75 Respiratory Rate 20 20 18 Respiratory Effort / Characteristics Non-Labored Respiratory Depth Normal Respiratory Pattern Regular Blood Pressure 216/99 H 220/94 H Blood Pressure [Right Arm] 202/89 H Blood Pressure Mean 138 136 Blood Pressure Mean [Right Arm] 126 Blood Pressure Position [Right Arm] Sitting Pulse Oximetry 98 98 98 Oxygen Delivery Method Oxygen Flow Rate 2 GENERAL: sitting up in bed, chronically ill appearing, on nasal cannula, disheveled EYE EXAM: normal conjunctiva OROPHARYNX: no exudate, no erythema, lips, buccal mucosa, and tongue normal and mucous membranes are moist NECK: supple, no nuchal rigidity, no adenopathy, non-tender LUNGS: Clear to auscultation. Normal chest wall mechanics HEART: Systolic ejection murmur CHEST: Reproducible anterior chest wall pain different than stated complaint ABDOMEN: abdomen soft, non-tender, normo-active bowel sounds, no masses, no rebound or guarding. BACK: Back is symmetrical on inspection and there is no deformity, no midline tenderness, no CVA tenderness. SKIN: no rashes and no bruising UPPER EXTREMITIES: upper extremities are grossly normal. LOWER EXTREMITIES: No pitting edema. NEURO EXAM: Normal sensorium, cranial nerves II-XII grossly intact, normal speech, no gross weakness of arms, no gross weakness of legs. Course ED COURSE: Vital signs were reviewed and showed hypertension. The patients medical record was reviewed The above diagnostic studies were performed and reviewed. ED treatments and interventions as stated above. 2011: The patient was evaluated in room B10. A complete history and physical examination was performed. 2230: I spoke with Dr. Brumfield, [facility] hospitalist, about the patient's case. He will further evaluate the patient. 2244: Upon reevaluation, the patient is stable. I discussed my findings with the patient and she understands and agrees with the treatment plan. Based on the patients age, coexisting illnesses, exam and lab findings the decision to treat as an inpatient was made. The patient remained stable while under my care. The patient will be evaluated for further management. Administered Medications Nitroglycerin (Nitro-Bid 2%) 2 inch EXT Q6H SARAH Stop: 10/14/18 20:59 Last Admin: 09/14/18 21:05 Dose: 1 inch Documented by: [id number] Discontinued Medications Aspirin (Aspirin) 324 mg PO NOW STA Stop: 09/14/18 20:20 Last Admin: 09/14/18 20:42 Dose: 324 mg Documented by: [id number] Labetalol HCl (Normodyne) 10 mg IV NOW STA Stop: 09/14/18 22:16 Last Admin: 09/14/18 22:20 Dose: 10 mg Documented by: [id number] Cosigned by: [id number] Nitroglycerin (Nitro-Bid 2%) 1 inch EXT NOW STA Stop: 09/14/18 20:20 Last Admin: 09/14/18 20:42 Dose: 1 inch Documented by: [id number] Oxycodone HCl (Roxicodone Immediate Rel) 5 mg PO NOW STA Stop: 09/14/18 20:57 Last Admin: 09/14/18 21:05 Dose: 5 mg Documented by: [id number] Medical Decision Making Differential Diagnosis Patient is well appearing and is hemodynamically stable. Heart sounds clear. Lungs are clear on examination without respiratory distress and the patient is oxygenating well on room air. The patient has a benign abdomen without evidence of an intra-abdominal source of symptoms. No evidence of a DVT. Medical Records Attestation: I reviewed the patient's medical records. Home Medications Current Medication List: was personally reviewed by me Laboratory Data Attestation: I reviewed the patient's lab results. Result diagrams: 09/14/18 19:05 09/14/18 19:05 Lab Results 09/14/18 09/14/18 Range/Units 19:05 19:05 WBC 6.85 (4.8-10.8) K/uL RBC 4.05 L (4.2-5.4) M/uL Hgb 11.4 L (12.0-16.0) g/dL Hct 36.8 L (37-47) % MCV 90.9 (80-100) fL MCH 28.1 (25-34) pg MCHC 31.0 L (32-36) g/dL RDW Std Deviation 50.9 H (36.4-46.3) fL RDW Coeff of Cha 15.3 H (11.5-14.5) % Plt Count 149 (130-400) K/uL MPV 12.5 H (7.4-10.4) fL Immature Gran % (Auto) 0.1 % Neut % (Auto) 71.7 % Lymph % (Auto) 17.5 % [place] % (Auto) 7.3 % Eos % (Auto) 3.1 % Baso % (Auto) 0.3 % Immature Gran # (Auto) 0.01 (0.00-0.02) K/uL Neut # (Auto) 4.91 (1.4-6.5) K/uL Lymph # (Auto) 1.20 (1.2-3.4) K/uL [place] # (Auto) 0.50 (0.11-0.59) K/uL Eos # (Auto) 0.21 (0-0.5) K/uL Baso # (Auto) 0.02 (0-0.2) K/uL Sodium 141 (136-145) mmol/L Potassium 4.1 (3.5-5.1) mmol/L Chloride 103 (98-107) mmol/L Carbon Dioxide 31 (21-32) mmol/L Anion Gap 6.0 (3-11) BUN 18 (7-18) mg/dl Creatinine 0.93 (0.6-1.2) mg/dl Est Cr Clr Drug Dosing 46.4 ml/min Est GFR ( Amer) 65.4 Est GFR (Non-Af Amer) 56.4 BUN/Creatinine Ratio 19.3 (10-20) Glucose 147 H (70-99) mg/dl Calcium 9.0 (8.5-10.1) mg/dl Total Bilirubin 1.3 H (0.2-1) mg/dl AST 155 H (15-37) U/L ALT 69 (12-78) U/L Alkaline Phosphatase 991 H (45-117) U/L Troponin I < 0.015 (0-0.045) ng/ml Total Protein 7.6 (6.4-8.2) gm/dl Albumin 2.7 L (3.4-5.0) gm/dl Globulin 4.9 H (2.5-4.0) gm/dl Albumin/Globulin Ratio 0.6 L (0.9-2) Lipase 78 (73-393) U/L Imaging Data Radiologist's Impression: Radiology results as stated below per my review and the radiologist's interpretation: SINGLE VIEW CHEST CLINICAL HISTORY: Atypical chest pain. FINDINGS: An AP, portable, upright chest radiograph is compared to chest x-ray and chest CT dated 08/24/2018. The examination is degraded by portable technique and patient rotation. The skeletal structures are osteopenic. The heart is enlarged and there is atherosclerotic calcification of the thoracic aorta. The pulmonary vasculature is noncongested. Chronic interstitial thickening is similar to previous. No airspace consolidation or large pleural effusion is identified. No pneumothorax is seen. The skeletal structures are osteopenic. The bony thorax is grossly intact. IMPRESSION: Mild cardiomegaly with no acute cardiopulmonary abnormality. Electronically signed by: Mario Thomas M.D. 09/14/2018 9:23 PM ECG Data Attestation: I personally reviewed and interpreted this ECG as follows: Indication: chest pain Rate (beats per minute): 73 Rhythm: sinus rhythm Findings: + other (normal axis), + nonspecific-ST abn (ST changes in lateral leads), + RBBB and + T-wave inversion ( in lead 3) Comparison ECG Date: from (08/25/18) Change: the following changes noted (ST changes are worse) Blood Pressure Blood Pressure Findings: Elevated blood pressure Blood Pressure Disposition: further management by hospitalist TARUN Narrative Patient is an 82-year-old female who presents the ER for precordial chest pain. Prior to arrival she took nitro and the pain did improve. Patient notes that she has been taking her medications but missed her evening medications. She has the chest pain feels similar to previous heart attack. She does have some reproducible anterior chest wall pain but notes this is different than when she is feeling she describes as a heaviness. Does have a history of coronary artery disease. She was recently here in August was discharged follow-up as an outpatient. IV was established blood work was obtained showed a hemoglobin of 11.4. No significant leukocytosis. BMP was unremarkable. Bilirubin was slig htly elevated at 1.3 and AST was elevated at 155 just slightly more than previously. ALT was unremarkable. Troponin was negative. Lipase was normal. EKG showed no significant acute change. Chest x-ray without any focal infiltrate. Patient's blood pressures systolically were in the 220s. She was placed on Nitropaste and given IV labetalol. Systolic blood pressures came down to the 180s. She was updated bedside. Chest pain did resolve. She was discussed with the hospitalist and cardiology for further work-up. She was also given aspirin while in the ER. Impression & Plan Hypertensive urgency, Chest pain, precordial Critical Care Time Critical Care Time: Yes Total Critical Care Time: 30 I have personally spent approximately 30 minutes minutes of critical care time in the direct management of this patient. This includes bedside care, interpretation of diagnostic studies, and testing, discussion with consultants, patient, and family members, and other required patient management activities. This 30 minutes is in excess of all separately billable procedures. Discharge Plan Visit Data Chief Complaint: Cardiac Assessment Stated Complaint: CHEST DISCOMFORT ED Provider: Pineda Montiel Discharge Problem: Hypertensive urgency, Chest pain, precordial Forms Stand Alone Forms: My [facility] [employer] Prescriptions Prescriptions: No Action sucralfate 1 gram Tablet 1 g PO QID RF: 0 docusate sodium 100 mg Capsule 100 mg PO BID RF: 0 carvedilol 6.25 mg Tablet 6.25 mg PO BIDM RF: 0 ascorbic acid (vitamin C) 500 mg Tablet 500 mg PO BID RF: 0 pantoprazole 40 mg Tablet,Delayed Release (Dr/Ec) 40 mg PO QAM RF: 0 nitroglycerin 0.4 mg Tablet, Sublingual See Rx Instructions .ROUTE .COMPLEX RF: 0 folic acid 1 mg Tablet 1 mg PO DAILY RF: 0 magnesium oxide 400 mg magnesium Tablet 400 mg PO DAILY RF: 0 atorvastatin 40 mg Tablet 40 mg PO DAILY RF: 0 isosorbide mononitrate 30 mg Tablet Extended Release 24 Hr 30 mg PO DAILY RF: 0 aspirin [Aspirin Low Dose] 81 mg Tablet,Delayed Release (Dr/Ec) 81 mg PO HS RF: 0 carbidopa-levodopa 25-100 mg Tablet 2 tab PO TID RF: 0 Tresiba FlexTouch U-200 200 unit/mL (3 mL) Insulin Pen 27 unit SUBCUT QAM RF: 0 Fiasp FlexTouch U-100 Insulin 100 unit/mL (3 mL) Insulin Pen 2 unit SUBCUT UD RF: 0 pregabalin [Lyrica] 50 mg Capsule 50 mg PO BID Qty: 6 RF: 0 oxycodone [OxyContin] 20 mg Tablet,Oral Only,Ext.Rel.12 Hr 20 mg PO Q12H Qty: 6 RF: 0 iron polysac-iron heme polypep capsule 150 mg PO HS RF: 0 oxycodone 5 mg Tablet 5 mg PO Q6H PRN (Reason: Pain) RF: 0 venlafaxine 25 mg Tablet 12.5 mg PO TID RF: 0 Referrals Referrals: Krishna Villanueva [Primary Care Provider] - The scribe's documentation has been prepared under my direction and personally reviewed by me in its entirety. I confirm that the note above accurately reflects all work, treatment, procedures, and medical decision making performed by me.
--- NOTE | 2018-09-14 23:47 | History & Physical Report ---
Date of Service September 14, 2018 Assessment & Plan (1) Chest pain: 82-year-old female was admitted on 14 September 2018 for chest pain. Of note, patient was hospitalized from -29 August for CP as well. Chest pain, CAD and PMH cardiac stents: Normally follows with [facility] cardiology in [place]. Seen by cardiology on last admission in August and recommended against further cardiac testing. She reports the onset of chest pain amongst generalized pains earlier today. - In ED tonight, afebrile, not tachycardic, notably hypertensive, initially normal room SpO2. Normal blood WBC. Troponin at 1905 was negative. EKG is poor quality but normal sinus rhythm [address] depressions in I, aVL that do not appear acute. pCXR notes mild cardiomegaly without acute abnormality. - In ED, treated with aspirin, nitroglycerin paste, labetalol, and oxycodone. - Will trend her troponins and EKGs. Continue scheduled Nitropaste every 6 hours. Consult cardiology. Hypertensive urgency: PMH same. ED SBP as high as 229. At home is on Coreg and Imdur but some concerns that the patient has missed doses since hospital discharge. Treated with labetalol in ED. - Will keep on home medications and add metoprolol prn. Ongoing medical issues: - Diabetes type 2, diabetic neuropathy: At home is on Tresiba and aspart as well as atorvastatin. --- Will keep her on her Tresiba and start insulin sliding scale. - Parkinson disease: Continue Sinemet. - Iron deficiency anemia: Admit hemoglobin 11.4. Comparisons around same. - Liver mass, elevated LFTs: History of TACE procedure. Follows with hepatology at [facility]. See discharge summary on 29 August for further details. This admit AST 155, alk phos 991. Record review notes recent ERCP in late August. - Depression, chronic pain syndrome: Continue home Lyrica, oxycodone, venlafaxine. - Atrial fibrillation: Is not on any anticoagulation per previous discharge summary. - GERD: Continue home pantoprazole. - Recurrent urinary tract infection. Code status: Unknown baseline code status, so will start at full code. Diet: Heart healthy, diabetes. DVT prophy: SCDs, heparin twice daily. PT/OT: Ordered. Disbo: Admit to med surg tele for observation. - Consulted case management. May need social contact worker to look into her home environment. (2) Coronary artery disease: (3) Hypertensive urgency: (4) Diabetes mellitus, type 2: (5) Diabetic neuropathy: (6) Parkinson's disease: (7) Anemia: (8) Liver mass: (9) Elevated LFTs: (10) Depression: (11) Chronic pain syndrome: (12) Atrial fibrillation: (13) GERD (gastroesophageal reflux disease): History of Present Illness Primary Care Provider: Krishna Thayerp 82-year-old female presents via EMS for chest pain. Per the ED notes, she had complained of chest pain and heaviness that began before arrival. For them she said that the symptoms felt similar to her heart attack in 2001. She also complained of nausea and shortness of breath prior to arrival. On this H&P, patient says that she has pain "in my chest, abdomen, sides, and back". No single area seems to be more bothersome than others. She says that the nitroglycerin she has been treated with thus far seems to have helped. She denies any present nausea or any recent vomiting/diarrhea. She also denies any shortness of breath. She requests to have something to drink and would like to get a dose of her ongoing oxycodone. No other acute patient complaints. There is no family here at bedside. - Past medical history includes diabetes, Parkinson's, iron deficiency anemia, colon cancer with liver metastases (reportedly in remission for 7 years), hypercholesterolemia, hypertension, depression, chronic pain syndrome, recurrent urinary tract infection, atrial fibrillation, GERD. - Past surgical history includes cholecystectomy, coronary stent placement, and recent ERCP. - Social history (per chart) notes never smoker, no alcohol use, and lives at home. Allergies Allergy/AdvReac Type Severity Reaction Status Date / Time Iodinated Contrast- Oral and Allergy Intermediate IV Verified 08/24/18 08:49 IV Dye CONTRAST- HIVES mivacurium Allergy Mild dizzy, Verified 08/24/18 08:49 nauseous (per patient) Bactrim Allergy Unknown patient Verified 09/21/16 05:17 unsure Cipro Allergy Unknown unknown Verified 09/21/16 05:17 ciprofloxacin Allergy Unknown unknown Verified 08/24/18 08:49 nitrofurantoin Allergy Unknown unknown Verified 08/24/18 08:49 sulfamethoxazole Allergy Unknown patient Verified 08/24/18 08:49 unsure trimethoprim Allergy Unknown patient Verified 08/24/18 08:49 unsure peanut Allergy Verified 09/15/18 13:54 acarbose AdvReac Mild GI SYMPTOMS Verified 08/24/18 08:49 insulin glargine AdvReac Mild "Very ill" Verified 08/24/18 08:49 [From Lantus U-100 Insulin] - see comments metformin AdvReac Mild GI SYMPTOMS Verified 08/24/18 08:49 Penicillins AdvReac Mild dizzy, Verified 08/24/18 08:49 nausous (per patient) tolerated zosyn [id number] troglitazone AdvReac Mild GI SYMPTOMS Verified 08/24/18 08:49 Home Medications Home Medications Medication Instructions Recorded Confirmed Type ascorbic acid (vitamin C) 500 mg PO BID 06/11/18 09/14/18 History carvedilol 6.25 mg PO BIDM 06/11/18 09/14/18 History docusate sodium 100 mg PO BID 06/11/18 09/14/18 History folic acid 1 mg PO DAILY 06/11/18 09/14/18 History magnesium oxide 400 mg PO DAILY 06/11/18 09/14/18 History nitroglycerin See Rx Instructions .ROUTE .COMPLEX 06/11/18 09/14/18 History pantoprazole 40 mg PO QAM 06/11/18 09/14/18 History sucralfate 1 g PO QID 06/11/18 09/14/18 History Fiasp FlexTouch U-100 Insulin See Rx Instructions .ROUTE .COMPLEX 08/24/18 09/15/18 History Tresiba FlexTouch U-200 30 unit SUBCUT QAM 08/24/18 09/15/18 History aspirin [Aspirin Low Dose] 81 mg PO HS 08/24/18 09/14/18 History atorvastatin 40 mg PO DAILY 08/24/18 09/14/18 History carbidopa-levodopa 2 tab PO TID 08/24/18 09/14/18 History isosorbide mononitrate 30 mg PO DAILY 08/24/18 09/14/18 History oxycodone [OxyContin] 20 mg PO Q12H #6 tab 08/29/18 09/14/18 Rx pregabalin [Lyrica] 50 mg PO BID #6 cap 08/29/18 09/14/18 Rx ferrous sulfate 325 mg PO DAILY 09/14/18 09/14/18 History oxycodone 5 mg PO Q4H PRN 09/14/18 09/15/18 History venlafaxine 37.5 mg PO DAILY 09/14/18 09/15/18 History prochlorperazine maleate 10 mg PO Q8H PRN 09/15/18 09/15/18 History Past Med/Surg History Medical History Coronary artery disease (Chronic) "s/p PCI ? [place]" Hypertension (Chronic) GERD (gastroesophageal reflux disease) (Chronic) Diabetes mellitus, type 2 (Chronic) Diabetic neuropathy (Chronic) Parkinson's disease (Chronic) Recurrent urinary tract infection (Chronic) Chronic pain syndrome (Chronic) "arthritis + neuropathy" Atrial fibrillation (Chronic) "per old records" Surgical History Status post cardiac catheterization (Chronic) Status post coronary artery stent placement (Chronic) Status post cholecystectomy (Chronic) Hx of endoscopic retrograde cholangiopancreatography June 2018 Family History Other Myocardial infarction Social History Preferred Language: Trinidadian Communication Ability: Impaired Injection Molding Operator Required: No Beliefs That Will Affect Care: None marital status: / Current Living Situation: Other Current Living Situation Comment: Son and Daughter Feels Safe at Home: Yes Safety Concerns: Feels Safe At This Time Smoking Status: Never smoker Second Hand Exposure: No ; Hx Alcohol Use: Yes Hx Substance Use: No Review of Systems Review of Systems: Review of systems is limited due to patient's not really very conversive. However we did discuss the following: Constitutional: Denies fevers. Respiratory: Denies any dyspnea, Cardiovascular: Positive chest pain. Gastrointestinal: Positive abdominal pain. Denies vomiting/diarrhea Musculoskeletal: Denies any acute extremity pains. Physical Exam Physical Exam: GENERAL: Awake, alert, slowly but easily conversational, and does not appear in acute distress. HENT: Normocephalic, atraumatic. Oropharynx unremarkable. EYES: Normal conjunctiva. Sclera non-icteric. NECK: Inspection normal. Supple. No nuchal rigidity. CARDIAC: +S1S2 RRR, no murmurs. RESPIRATORY: Clear to auscultation. No wheezes or rales. Normal respiratory effort. GI: +BS, soft, non-distended. Minimal tenderness in the right upper quadrant only. No rebound or guarding. Right upper quadrant feels firm. EXTREMITIES: No pedal edema or calf tenderness. NEURO: Mild right > left resting upper extremity tremor. Results & Data Vital Signs (Past 12 Hours) Vital Signs Temp Pulse Pulse Resp BP BP Pulse Ox 09/14/18 23:00 75 18 202/89 H 98 09/14/18 21:25 20 220/94 H 98 09/14/18 21:20 75 20 216/99 H 98 09/14/18 21:05 83 20 229/95 H 09/14/18 21:01 74 20 227/92 H 100 09/14/18 21:00 73 20 227/92 H 98 09/14/18 20:55 78 20 213/91 H 91 09/14/18 20:50 74 20 228/93 H 09/14/18 20:46 80 20 224/94 H 100 09/14/18 20:38 98 09/14/18 20:22 36.7 C 73 20 217/109 H 98 09/14/18 20:19 72 17 217/109 H 100 Laboratory Results Laboratory Results WBC 6.85 K/uL (4.8-10.8) 09/14/18 19:05 RBC 4.05 M/uL (4.2-5.4) L 09/14/18 19:05 Hgb 11.4 g/dL (12.0-16.0) L 09/14/18 19:05 Hct 36.8 % (37-47) L 09/14/18 19:05 MCV 90.9 fL (80-100) 09/14/18 19:05 MCH 28.1 pg (25-34) 09/14/18 19:05 MCHC 31.0 g/dL (32-36) L 09/14/18 19:05 RDW Std Deviation 50.9 fL (36.4-46.3) H 09/14/18 19:05 RDW Coeff of Cha 15.3 % (11.5-14.5) H 09/14/18 19:05 Plt Count 149 K/uL (130-400) 09/14/18 19:05 MPV 12.5 fL (7.4-10.4) H 09/14/18 19:05 Immature Gran % (Auto) 0.1 % 09/14/18 19:05 Neut % (Auto) 71.7 % 09/14/18 19:05 Lymph % (Auto) 17.5 % 09/14/18 19:05 [place] % (Auto) 7.3 % 09/14/18 19:05 Eos % (Auto) 3.1 % 09/14/18 19:05 Baso % (Auto) 0.3 % 09/14/18 19:05 Immature Gran # (Auto) 0.01 K/uL (0.00-0.02) 09/14/18 19:05 Neut # (Auto) 4.91 K/uL (1.4-6.5) 09/14/18 19:05 Lymph # (Auto) 1.20 K/uL (1.2-3.4) 09/14/18 19:05 [place] # (Auto) 0.50 K/uL (0.11-0.59) 09/14/18 19:05 Eos # (Auto) 0.21 K/uL (0-0.5) 09/14/18 19:05 Baso # (Auto) 0.02 K/uL (0-0.2) 09/14/18 19:05 Sodium 141 mmol/L (136-145) 09/14/18 19:05 Potassium 4.1 mmol/L (3.5-5.1) 09/14/18 19:05 Chloride 103 mmol/L (98-107) 09/14/18 19:05 Carbon Dioxide 31 mmol/L (21-32) 09/14/18 19:05 Anion Gap 6.0 (3-11) 09/14/18 19:05 BUN 18 mg/dl (7-18) 09/14/18 19:05 Creatinine 0.93 mg/dl (0.6-1.2) 09/14/18 19:05 Est Cr Clr Drug Dosing 46.4 ml/min 09/14/18 19:05 Est GFR ( Amer) 65.4 09/14/18 19:05 Est GFR (Non-Af Amer) 56.4 09/14/18 19:05 BUN/Creatinine Ratio 19.3 (10-20) 09/14/18 19:05 Glucose 147 mg/dl (70-99) H 09/14/18 19:05 Calcium 9.0 mg/dl (8.5-10.1) 09/14/18 19:05 Total Bilirubin 1.3 mg/dl (0.2-1) H 09/14/18 19:05 AST 155 U/L (15-37) H 09/14/18 19:05 ALT 69 U/L (12-78) 09/14/18 19:05 Alkaline Phosphatase 991 U/L (45-117) H 09/14/18 19:05 Troponin I < 0.015 ng/ml (0-0.045) 09/14/18 19:05 Total Protein 7.6 gm/dl (6.4-8.2) 09/14/18 19:05 Albumin 2.7 gm/dl (3.4-5.0) L 09/14/18 19:05 Globulin 4.9 gm/dl (2.5-4.0) H 09/14/18 19:05 Albumin/Globulin Ratio 0.6 (0.9-2) L 09/14/18 19:05 Lipase 78 U/L (73-393) 09/14/18 19:05 Medications Administered Current Inpatient Medications Nitroglycerin (Nitro-Bid 2%) 2 inch EXT Q6H SRAAH Stop: 10/14/18 20:59 Last Admin: 09/14/18 21:05 Dose: 1 inch Documented by: Code Status & VTE Plan Code Status Full code VTE Prophylaxis Plan VTE Prophylaxis will be ordered: Yes Supervising Physician Co-Signing Physician Notes Attending addendum: I have physically seen this patient, have supervised the medical residents activities, and agree with the H&P unless as otherwise noted. Assessment and Plan: Uncontrolled hypertension/confusion- Patient admits to missing most recent medications. Suspect she is having some rebound hypertension. Would resume her usual medications of carvedilol 6.25 mg p.o. twice daily and isosorbide mononitrate 30 mg p.o. daily. Have Lopressor 5 mg IV every 4 hours as needed systolic blood pressure greater than 160 available as well. We will ask social contact worker to verify patient has appropriate help at home. Most recent hospitalization was 08/24-08/29. Remaining orders and notations as noted. PG Care Time/CCT Total # of Minutes Spent Total Time Spent with Patient: Total time spent is greater than 50% in coordination of care (as documented) at patient's floor/unit and/or counseling patient: Resident Activity Tracking Resident Involvement: Resident Care Provided Care Provided: Adult Hospital Medicine
[2018-09-15] MEDS ORDERED: METOPROLOL TARTRATE 1 MG/ML VIAL IV STA (00:05)
[2018-09-15] MEDS ORDERED: GLUCOSE 10 TABS/TUBE PO PRN (01:17)
[2018-09-15] MEDS ORDERED: CARBOHYDRATES FOR HYPOGLYCEMIA PO PRN (01:17)
[2018-09-15] MEDS ORDERED: GLUCAGON FOR INJ 1 MG VIAL SQ PRN (01:17)
[2018-09-15] MEDS ORDERED: METOPROLOL TARTRATE 1 MG/ML VIAL IV PRN (01:17)
[2018-09-15] MEDS ORDERED: GLUCOSE 40% GEL 15 GM TUBE PO PRN (01:17)
[2018-09-15] MEDS ORDERED: DEXTROSE 50% 50 ML SYRINGE IV PRN (01:17)
[2018-09-15] MEDS ORDERED: ONDANSETRON INJ 2 MG/ML 2 ML VIAL IV PRN (01:17)
[2018-09-15] MEDS: OXYCODONE HCL 20 MG TABCR (OXYCONTIN) PO SCH ×3 (01:42→21:33)
[2018-09-15] MEDS: NITROGLYCERIN 2% OINTMENT 30GM TUBE EXT SCH ×2 (02:07→08:25)
[2018-09-15] MEDS: OXYCODONE HCL IR 5 MG TAB (IMMEDIATE RELEASE) PO PRN (04:30)
[2018-09-15 07:15] LABS: Basophils # (auto) 0.01 K/uL (0-0.2); Basophils % (auto) 0.1 %; Eosinophils # (auto) 0.01 K/uL (0-0.5); Eosinophils % (auto) 0.1 %; Hemoglobin 12.6 g/dL (12.0-16.0); Immature Granulocytes # (auto) 0.04 K/uL (0.00-0.02); Immature Granulocytes % (auto) 0.3 %; Lymphocytes # (auto) 0.71 K/uL (1.2-3.4); Lymphocytes % (auto) 5.4 %; Mean Corpuscular Hgb Conc 31.5 g/dL (32-36); Mean Corpuscular Volume 89.9 fL (80-100); Mean Platelet Volume 11.5 fL (7.4-10.4); Monocytes # (auto) 0.79 K/uL (0.11-0.59); Neutrophils # (auto) 11.52 K/uL (1.4-6.5); Neutrophils % (auto) 88.1 %; Platelet Count 116 K/uL (130-400); RDW Coefficient of Variation 15.1 % (11.5-14.5); RDW Standard Deviation 49.9 fL (36.4-46.3); Red Blood Count 4.45 M/uL (4.2-5.4); White Blood Count 13.08 K/uL (4.8-10.8)
[2018-09-15 07:49] LABS: BUN Creatinine Ratio 16.1 (10-20); Blood Urea Nitrogen 17 mg/dl (7-18); Calcium 9.7 mg/dl (8.5-10.1); Carbon Dioxide 30 mmol/L (21-32); Chloride 100 mmol/L (98-107); Creatinine Clr Calc Pharmacy 41.1 ml/min; Est GFR (African American) 57.1; Est GFR (Non-African American) 49.3; Glucose 250 mg/dl (70-99); Potassium 4.4 mmol/L (3.5-5.1); Sodium 136 mmol/L (136-145)
[2018-09-15 07:54] LABS: Troponin I < 0.015 ng/ml (0-0.045)
[2018-09-15] MEDS: INSULIN ASPART 100 UNITS/ML 3 ML PEN SC SCH ×4 (08:06→21:37)
[2018-09-15] MEDS: ATORVASTATIN 40 MG TAB PO SCH (08:10)
[2018-09-15] MEDS: CARBIDOPA/LEVODOPA 25/100MG TAB PO SCH ×3 (08:10→21:37)
[2018-09-15] MEDS: CARVEDILOL 6.25 MG TAB PO SCH ×2 (08:11→16:56)
[2018-09-15] MEDS: DOCUSATE SODIUM 100 MG CAP PO SCH ×2 (08:11→21:37)
[2018-09-15] MEDS: FOLIC ACID 1 MG TAB PO SCH (08:12)
[2018-09-15] MEDS: ISOSORBIDE MONO EXTENDED REL 30 MG TABCR PO SCH (08:12)
[2018-09-15] MEDS: MAGNESIUM OXIDE 400 MG TAB PO SCH (08:12)
[2018-09-15] MEDS: SUCRALFATE 1 GM TAB PO SCH ×4 (08:13→21:37)
[2018-09-15] MEDS: PANTOprazole 40 MG TAB PO SCH (08:14)
[2018-09-15] MEDS: ASCORBIC ACID 500 MG TAB PO SCH ×2 (08:14→21:37)
[2018-09-15] MEDS: PREGABALIN 50 MG CAP PO SCH ×2 (08:24→21:40)
[2018-09-15] MEDS ORDERED: INSULIN GLARGINE SOLOSTAR 100 UNITS/ML 3 ML PEN SQ SCH (09:00)
[2018-09-15] MEDS: VENLAFAXINE HCL 37.5 MG TAB PO SCH (10:19)
--- NOTE | 2018-09-15 12:53 | Cardiology Consultation ---
Date of Consultation September 15, 2018 Assessment & Plan (1) Chest pain, precordial: The patient has had intermittent symptoms of chest pain over the past several weeks. She was admitted here previously for symptoms of chest discomfort that were felt to be atypical for an acute coronary syndrome. I think her current symptoms are similar in that regard. Most of her pain seems to be in the right upper quadrant and right flank. There is no evidence that she has coronary ischemia or an acute coronary syndrome. She likely had fairly extended episode of symptoms without elevation in her biomarkers. I think I would pursue other etiologies for symptoms to include a potential malignancy or gastrointestinal process. I do not believe any additional cardiology evaluation is warranted in this regard. I will discontinue her nitroglycerin paste. She can continue on her usual outpatient medical regimen. (2) Coronary artery disease: Currently on aspirin, atorvastatin, beta-blockade and oral nitrates. Again, no evidence of an acute coronary syndrome. I do not believe her current symptoms are likely related to coronary insufficiency or angina. Based on her other comorbidities it does not seem as if a coronary evaluation at this point is warranted. (3) Atrial fibrillation: She has a history of atrial fibrillation by report. According to her daughter she had atrial fibrillation while an inpatient in [place]. She has been in sinus rhythm here. Ideally she would be on anticoagulation but there was some concern over intrahepatic bleeding. I Think we can defer systemic anticoagulation currently. History of Present Illness Reason for Consultation: Chest pain Requesting Physician: Brissa Attending Physician: Nicole Maloney MD History of Present Illness The patient is an 82-year-old woman [facility] after evaluation for symptoms of chest discomfort. She has a past medical history consistent with coronary disease and prior percutaneous intervention quite remotely. Patient was recently discharged from rehab. Daughter who was present for today's interview provided some supplemental history. Seems that she was actually doing fairly well for couple of days. She was walking with a walker and had enjoyed a reasonable dietary intake. This today evening the patient complained of chest discomfort and requested sublingual nitroglycerin. Her daughter administered 2 sublingual nitroglycerines and when her mother requested a 3rd she contacted EMS for transport to the hospital. Currently, the patient appears quite drowsy. She was able to participate in some of the interview but did not provide all of a history. She has difficulty recalling chest pain last evening. She states that she has primarily right flank and back discomfort. Occasionally she will have some chest discomfort as well. This did improve with nitroglycerin last evening but did not resolve entirely. She is currently denying symptoms of chest discomfort. She denies breathing difficulty currently. She did state that some of her symptoms are worse with deep inspiration but not currently. Allergies Allergy/AdvReac Type Severity Reaction Status Date / Time Iodinated Contrast- Oral and Allergy Intermediate IV Verified 08/24/18 08:49 IV Dye CONTRAST- HIVES mivacurium Allergy Mild dizzy, Verified 08/24/18 08:49 nauseous (per patient) Bactrim Allergy Unknown patient Verified 09/21/16 05:17 unsure Cipro Allergy Unknown unknown Verified 09/21/16 05:17 ciprofloxacin Allergy Unknown unknown Verified 08/24/18 08:49 nitrofurantoin Allergy Unknown unknown Verified 08/24/18 08:49 sulfamethoxazole Allergy Unknown patient Verified 08/24/18 08:49 unsure trimethoprim Allergy Unknown patient Verified 08/24/18 08:49 unsure acarbose AdvReac Mild GI SYMPTOMS Verified 08/24/18 08:49 insulin glargine AdvReac Mild "Very ill" Verified 08/24/18 08:49 [From Lantus U-100 Insulin] - see comments metformin AdvReac Mild GI SYMPTOMS Verified 08/24/18 08:49 Penicillins AdvReac Mild dizzy, Verified 08/24/18 08:49 nausous (per patient) tolerated zosyn [id number] troglitazone AdvReac Mild GI SYMPTOMS Verified 08/24/18 08:49 Home Medications Home Medications Medication Instructions Recorded Confirmed Type ascorbic acid (vitamin C) 500 mg PO BID 06/11/18 09/14/18 History carvedilol 6.25 mg PO BIDM 06/11/18 09/14/18 History docusate sodium 100 mg PO BID 06/11/18 09/14/18 History folic acid 1 mg PO DAILY 06/11/18 09/14/18 History magnesium oxide 400 mg PO DAILY 06/11/18 09/14/18 History nitroglycerin See Rx Instructions .ROUTE .COMPLEX 06/11/18 09/14/18 History pantoprazole 40 mg PO QAM 06/11/18 09/14/18 History sucralfate 1 g PO QID 06/11/18 09/14/18 History Fiasp FlexTouch U-100 Insulin See Rx Instructions .ROUTE .COMPLEX 08/24/18 09/15/18 History Tresiba FlexTouch U-200 30 unit SUBCUT QAM 08/24/18 09/15/18 History aspirin [Aspirin Low Dose] 81 mg PO HS 08/24/18 09/14/18 History atorvastatin 40 mg PO DAILY 08/24/18 09/14/18 History carbidopa-levodopa 2 tab PO TID 08/24/18 09/14/18 History isosorbide mononitrate 30 mg PO DAILY 08/24/18 09/14/18 History oxycodone [OxyContin] 20 mg PO Q12H #6 tab 08/29/18 09/14/18 Rx pregabalin [Lyrica] 50 mg PO BID #6 cap 08/29/18 09/14/18 Rx ferrous sulfate 325 mg PO DAILY 09/14/18 09/14/18 History oxycodone 5 mg PO Q4H PRN 09/14/18 09/15/18 History venlafaxine 37.5 mg PO DAILY 09/14/18 09/15/18 History prochlorperazine maleate 10 mg PO Q8H PRN 09/15/18 09/15/18 History Patient History Medical History Coronary artery disease (Chronic) "s/p PCI ? [place]" Hypertension (Chronic) GERD (gastroesophageal reflux disease) (Chronic) Diabetes mellitus, type 2 (Chronic) Diabetic neuropathy (Chronic) Parkinson's disease (Chronic) Recurrent urinary tract infection (Chronic) Chronic pain syndrome (Chronic) "arthritis + neuropathy" Atrial fibrillation (Chronic) "per old records" Surgical History Status post cardiac catheterization (Chronic) Status post coronary artery stent placement (Chronic) Status post cholecystectomy (Chronic) Hx of endoscopic retrograde cholangiopancreatography June 2018 Family History Other Myocardial infarction Social History Preferred Language: Hebrew Communication Ability: Impaired Manager Generation Required: No Beliefs That Will Affect Care: None marital status: / Current Living Situation: Other Current Living Situation Comment: Son and Daughter Feels Safe at Home: Yes Safety Concerns: Feels Safe At This Time Smoking Status: Never smoker Second Hand Exposure: No ; Hx Alcohol Use: Yes Hx Substance Use: No Review of Systems Review of Systems: All systems reviewed & are unremarkable except as noted in HPI & below She was reported to have had atrial fibrillation while in [place] a few weeks ago. She did endorse a sense of palpitations on occasion. Physical Exam Physical Exam: She appeared drowsy. She did answer questions appropriately. Her affect was flat. HEENT: Sclerae are anicteric. Pupils are equal and reactive to light and accommodation. Extraocular movements were intact. Mask facies Neuro: Cranial nerves intact Lungs: Lungs are clear to auscultation bilaterally. There are no rales wheezes or rhonchi. She has normal respiratory effort without use of accessory muscles. There is normal pulmonary excursion. Cardiac: The rhythm was regular. S1 and S2 were normal. Systolic ejection murmur. The PMI was not markedly displaced on palpation. Extremities: Patient has bilateral radial pulses that are equal in intensity. There is no evidence cyanosis or clubbing. There was no evidence of significant peripheral edema bilaterally. Skin: There are no rashes noted on examination today. Results & Data Vital Signs (Past 12 Hours) Vital Signs Temp Pulse Pulse Pulse Resp BP BP 09/15/18 08:45 37 C 113 H 22 143/84 H 09/15/18 07:20 91 H 09/15/18 05:27 36.8 C 95 H 22 169/87 H 09/15/18 02:07 85 188/90 H 09/15/18 01:25 85 09/15/18 01:21 36.7 C 80 20 188/90 H Pulse Ox 09/15/18 08:45 97 09/15/18 07:20 09/15/18 05:27 98 09/15/18 02:07 09/15/18 01:25 09/15/18 01:21 98 Laboratory Results Abnormal Lab Results 09/14/18 09/14/18 09/15/18 19:05 19:05 01:46 WBC 6.85 RBC 4.05 L Hgb 11.4 L Hct 36.8 L MCV 90.9 MCH 28.1 MCHC 31.0 L RDW Std Deviation 50.9 H RDW Coeff of Cha 15.3 H Plt Count 149 MPV 12.5 H Immature Gran % (Auto) 0.1 Neut % (Auto) 71.7 Lymph % (Auto) 17.5 [place] % (Auto) 7.3 Eos % (Auto) 3.1 Baso % (Auto) 0.3 Immature Gran # (Auto) 0.01 Neut # (Auto) 4.91 Lymph # (Auto) 1.20 [place] # (Auto) 0.50 Eos # (Auto) 0.21 Baso # (Auto) 0.02 Sodium 141 Potassium 4.1 Chloride 103 Carbon Dioxide 31 Anion Gap 6.0 BUN 18 Creatinine 0.93 Est Cr Clr Drug Dosing 46.4 Est GFR ( Amer) 65.4 Est GFR (Non-Af Amer) 56.4 BUN/Creatinine Ratio 19.3 Glucose 147 H POC Glucose Calcium 9.0 Total Bilirubin 1.3 H AST 155 H ALT 69 Alkaline Phosphatase 991 H Troponin I < 0.015 < 0.015 Total Protein 7.6 Albumin 2.7 L Globulin 4.9 H Albumin/Globulin Ratio 0.6 L Lipase 78 09/15/18 09/15/18 09/15/18 01:58 06:59 06:59 WBC 13.08 H RBC 4.45 Hgb 12.6 Hct 40.0 MCV 89.9 MCH 28.3 MCHC 31.5 L RDW Std Deviation 49.9 H RDW Coeff of Cha 15.1 H Plt Count 116 L MPV 11.5 H Immature Gran % (Auto) 0.3 Neut % (Auto) 88.1 Lymph % (Auto) 5.4 [place] % (Auto) 6.0 Eos % (Auto) 0.1 Baso % (Auto) 0.1 Immature Gran # (Auto) 0.04 H Neut # (Auto) 11.52 H Lymph # (Auto) 0.71 L [place] # (Auto) 0.79 H Eos # (Auto) 0.01 Baso # (Auto) 0.01 Sodium 136 Potassium 4.4 Chloride 100 Carbon Dioxide 30 Anion Gap 6.0 BUN 17 Creatinine 1.04 Est Cr Clr Drug Dosing 41.1 Est GFR ( Amer) 57.1 Est GFR (Non-Af Amer) 49.3 BUN/Creatinine Ratio 16.1 Glucose 250 H POC Glucose 232 H Calcium 9.7 Total Bilirubin AST ALT Alkaline Phosphatase Troponin I < 0.015 Total Protein Albumin Globulin Albumin/Globulin Ratio Lipase 09/15/18 09/15/18 07:40 11:22 WBC RBC Hgb Hct MCV MCH MCHC RDW Std Deviation RDW Coeff of Cha Plt Count MPV Immature Gran % (Auto) Neut % (Auto) Lymph % (Auto) [place] % (Auto) Eos % (Auto) Baso % (Auto) Immature Gran # (Auto) Neut # (Auto) Lymph # (Auto) [place] # (Auto) Eos # (Auto) Baso # (Auto) Sodium Potassium Chloride Carbon Dioxide Anion Gap BUN Creatinine Est Cr Clr Drug Dosing Est GFR ( Amer) Est GFR (Non-Af Amer) BUN/Creatinine Ratio Glucose POC Glucose 237 H 255 H Calcium Total Bilirubin AST ALT Alkaline Phosphatase Troponin I Total Protein Albumin Globulin Albumin/Globulin Ratio Lipase Diagnostic Findings Chest x-ray was obtained at the time of admission which did not reveal any acute cardiopulmonary findings ECG Additional Comments: Sinus tachycardia with right bundle branch block PG Care Time/CCT Total # of Minutes Spent Total Time Spent with Patient: Total time spent is greater than 50% in coordination of care (as documented) at patient's floor/unit and/or counseling patient: (1) Coronary artery disease Coronary Disease-Associated Artery/Lesion type: [place] artery [place] vs. transplanted heart: [place] heart Associated angina: without angina Qualified Code(s): I25.10 - Atherosclerotic heart disease of [place] coronary artery without angina pectoris (2) Atrial fibrillation Atrial fibrillation type: paroxysmal Qualified Code(s): I48.0 - Paroxysmal atrial fibrillation
[2018-09-15] MEDS ORDERED: SODIUM CHLORIDE 0.9% 1000ML 1,000 ML IV ONE (15:46)
--- NOTE | 2018-09-15 16:29 | Hospitalist Progress Note ---
Date of Service September 15, 2018 Assessment & Plan (1) Hypertensive urgency: Systolic blood pressure on admission was more than 200, patient between 10 PM and 3 AM received more than 3 doses of IV beta-marvin This morning patient received Coreg 6.25 Also she was on Nitropaste. Consult Dr. Jaime was appreciated, Nitropaste was stopped Currently hypotensive 80/40, heart rate is in the 80s, responded to IV fluid bolus, blood pressure currently is normal. We will keep her only on Coreg with holding parameter. Stopped all IV beta-blockers We will order stat labs including CBC, rule out any hemorrhagic cause for her hypotension, ordered also ordered BMP to rule out checked kidney, LFTs rule out check liver Will order UA to rule out urine tract infection. (2) Chest pain, precordial: Chest pain on admission probably was secondary to hypertensive urgency, Currently denies any chest pain. Giving her liver mass, active cancer, no aggressive intervention is warranted at this time Dr. Jaime consult appreciated Can you continue to follow up serial cardiac enzymes. (3) Colon cancer: Patient will continue to follow up with [facility] (4) Common bile duct obstruction: No indication of currently biliary obstruction on her LFTs (5) Liver mass: As mentioned above she will follow-up with [facility] (6) Hypotension due to drugs: Responded to IV fluid bolus, blood pressure medications were adjusted. Subjective Patient initially was admitted with chest pain but currently denies any chest pain. Yesterday her systolic blood pressure was more than 200 and she received multiple doses of IV beta-marvin. Nurse called me for a low blood pressure in the range of 80/40. Oxygen saturation was 92% on room air. Patient received 500 normal saline bolus Blood pressure quickly corrected to 118/60 We will continue Coreg with holding parameter, keep only on low-dose for now Review of Systems Review of Systems: Review of system Due to patient mild acute distress and lethargy. Review of system was unobtainable, but she denied chest pain or shortness of breath to me Physical Exam Physical Exam: Physical examination General patient appears to be slightly lethargic and in mild acute distress, obese HEENT: Atraumatic , normocephalic /no jaundice /no pallor /anicteric /no dry mucous membrane /normal external ear inspection Neck: Supple /no swelling /central trach Heart: S1/S2 normal/regular rate and rhythm/no gallop /no rub /no murmur Lungs: Clear to auscultation bilaterally/normal chest with expansion/no rhonchi/no rales/no wheezing/no use of accessory muscles of respiration Abdomen: Soft/nontender/no guarding/no rebound/no organomegaly/no pulsatile mass Musculoskeletal: No swelling/no edema/no tenderness/normal range of motion Neuro exam: Appears to be pale and lethargic, but follows all commands and answers questions, moves all extremities Psychiatric evaluation: Unable to evaluate Skin: No rash on exposed skin area/no erythema Extremity: Normal pulse/no pitting edema/no clubbing or cyanosis Results & Data Vital Signs (Past 12 Hours) Vital Signs Temp Pulse Pulse Resp BP BP Pulse Ox 09/15/18 16:03 118/73 09/15/18 15:45 87/47 L 09/15/18 15:30 87 09/15/18 14:46 36.0 C L 93 H 16 66/53 L 71/42 L 91 09/15/18 13:38 09/15/18 12:54 36.6 C 98 H 16 98/64 L 96 09/15/18 08:45 37 C 113 H 22 143/84 H 97 09/15/18 07:20 91 H 09/15/18 05:27 36.8 C 95 H 22 169/87 H 98 Pulse Ox 09/15/18 16:03 09/15/18 15:45 09/15/18 15:30 09/15/18 14:46 09/15/18 13:38 97 09/15/18 12:54 09/15/18 08:45 09/15/18 07:20 09/15/18 05:27 PG Care Time/CCT Total # of Minutes Spent Total Time Spent with Patient: Total time spent is greater than 50% in coordination of care (as documented) at patient's floor/unit and/or counseling patient:
[2018-09-15 16:52] LABS: Alanine Aminotransferase 14 U/L (12-78); Albumin Level 2.2 gm/dl (3.4-5.0); Aspartate Aminotransferase 135 U/L (15-37); BUN Creatinine Ratio 15.1 (10-20); Blood Urea Nitrogen 22 mg/dl (7-18); Calcium 8.8 mg/dl (8.5-10.1); Carbon Dioxide 29 mmol/L (21-32); Chloride 102 mmol/L (98-107); Creatinine Clr Calc Pharmacy 28.8 ml/min; Est GFR (African American) 37.3; Est GFR (Non-African American) 32.2; Glucose 200 mg/dl (70-99); Potassium 4.2 mmol/L (3.5-5.1); Sodium 138 mmol/L (136-145)
[2018-09-15 16:55] LABS: Hematocrit (blood only) 33.1 % (37-47); Hemoglobin 10.4 g/dL (12.0-16.0); Mean Corpuscular Hgb Conc 31.4 g/dL (32-36); Mean Corpuscular Volume 89.5 fL (80-100); Mean Platelet Volume 12.1 fL (7.4-10.4); Platelet Count 112 K/uL (130-400); RDW Coefficient of Variation 15.5 % (11.5-14.5); RDW Standard Deviation 50.7 fL (36.4-46.3); White Blood Count 18.49 K/uL (4.8-10.8)
[2018-09-15 16:56] LABS: Basophils # (auto) 0.01 K/uL (0-0.2); Basophils % (auto) 0.1 %; Immature Granulocytes # (auto) 0.08 K/uL (0.00-0.02); Immature Granulocytes % (auto) 0.4 %; Lymphocytes # (auto) 0.92 K/uL (1.2-3.4); Monocytes # (auto) 1.31 K/uL (0.11-0.59); Monocytes % (auto) 7.1 %; Neutrophils # (auto) 16.17 K/uL (1.4-6.5); Neutrophils % (auto) 87.4 %; Platelet Estimate Decreased (Normal)
[2018-09-15 17:03] LABS: Albumin Globulin Ratio 0.5 (0.9-2); Alkaline Phosphatase 829 U/L (45-117); Bilirubin,Total 4.7 mg/dl (0.2-1); Globulin 4.3 gm/dl (2.5-4.0); Total Protein 6.5 gm/dl (6.4-8.2); Troponin I < 0.015 ng/ml (0-0.045)
--- NOTE | 2018-09-15 18:46 | Communication Note ---
Date of Service: September 15, 2018 Daughter will bring her own long acting insulin from home tomorrow
[2018-09-15 19:54] LABS: Appearance Urine Cloudy (Clear); Bacteria Urine Automated 2+ (Negative); Bilirubin Urine Negative (Negative); Blood Urine Negative (Negative); Cast Urine Automated 0 /lpf (0-5); Color Urine Yellow; Epithelial Cell Urine Auto 0-5 /lpf (0-5); Glucose Urine UA 1+ (Negative); Ketones Urine Negative (Negative); Leukocyte Esterase Urine 1+ (Negative); Nitrite Urine Negative (Negative); RBC Urine Automated 0-4 /hpf (0-4); Specific Gravity Urine 1.012 (1.000-1.030); Urobilinogen Urine Negative (Negative); pH Urine 8.5 (4.5-7.5)
[2018-09-15 20:03] LABS: Protein Urine 1+ (Negative)
[2018-09-15] MEDS: ASPIRIN 81 MG ECTAB PO SCH (21:36)
[2018-09-15] MEDS: IRON POLYSACCHARIDE COMPLEX 150 MG CAPSULE PO SCH (21:37)
[2018-09-16] MEDS: ATORVASTATIN 40 MG TAB PO SCH (08:15)
[2018-09-16] MEDS: ASCORBIC ACID 500 MG TAB PO SCH ×2 (08:15→21:12)
[2018-09-16] MEDS: PANTOprazole 40 MG TAB PO SCH (08:15)
[2018-09-16] MEDS: VENLAFAXINE HCL 37.5 MG TAB PO SCH (08:15)
[2018-09-16] MEDS: FOLIC ACID 1 MG TAB PO SCH (08:15)
[2018-09-16] MEDS: SUCRALFATE 1 GM TAB PO SCH ×4 (08:16→21:04)
[2018-09-16] MEDS: CARVEDILOL 6.25 MG TAB PO SCH ×2 (08:16→17:30)
[2018-09-16] MEDS: MAGNESIUM OXIDE 400 MG TAB PO SCH (08:16)
[2018-09-16] MEDS: ISOSORBIDE MONO EXTENDED REL 30 MG TABCR PO SCH (08:16)
[2018-09-16] MEDS: DOCUSATE SODIUM 100 MG CAP PO SCH ×2 (08:16→21:08)
[2018-09-16] MEDS: CARBIDOPA/LEVODOPA 25/100MG TAB PO SCH ×3 (08:16→21:12)
[2018-09-16] MEDS: INSULIN ASPART 100 UNITS/ML 3 ML PEN SC SCH ×4 (08:19→21:11)
[2018-09-16] MEDS: OXYCODONE HCL 20 MG TABCR (OXYCONTIN) PO SCH ×2 (08:25→21:03)
[2018-09-16] MEDS: PREGABALIN 50 MG CAP PO SCH ×2 (08:25→21:03)
[2018-09-16] MEDS: POLYETHYLENE (MIRALAX) 17 GM PACK PO SCH (10:49)
--- NOTE | 2018-09-16 11:28 | History & Physical Report ---
Date of Service September 16, 2018 History of Present Illness Chief Complaint: Elevated Lft's Primary Care Provider: Krishna Villanueva 82 yo fm with a history of eveline's disease, right sided liver mass s/p tace james [address] [facility] now with ? residual disease per discussion with her daughter at bedside today but still being managed through [facility], prior papillary stenosis with extension of sphincterotomy done on 08/28/18 and removal of cbd stones. She has had issues with chronic chest pain it appears on chart review. She was admitted recently at the end of 08/23, underwent ERCP on 08/28/18 with cbd stone removal, extension of sphincterotomy, 5 days of ceftrixaone. Dc'd to [facility] from [facility]. Home from [facility] on 09/12/18, admitted here again on 09/14/18 with chest pain. Her workup for chest pain included ekg, troponin, cardiology consultation. She was briefly on nitropaste that her daughter feels made her have altered mental status. GI is consulted on 09/15/18 for elevated lfts. The patient is lying in bed. Alert and oriented to person/place/time. She reports no overt fevers, chills. Does endorse ruq discomfort. No dysuria, . She is not on blood thinners. Her daughter states they still have follow-up with [facility] early 10/24 for the liver mass. Allergies Allergy/AdvReac Type Severity Reaction Status Date / Time Iodinated Contrast- Oral and Allergy Intermediate IV Verified 08/24/18 08:49 IV Dye CONTRAST- HIVES mivacurium Allergy Mild dizzy, Verified 08/24/18 08:49 nauseous (per patient) Bactrim Allergy Unknown patient Verified 09/21/16 05:17 unsure Cipro Allergy Unknown unknown Verified 09/21/16 05:17 ciprofloxacin Allergy Unknown unknown Verified 08/24/18 08:49 nitrofurantoin Allergy Unknown unknown Verified 08/24/18 08:49 sulfamethoxazole Allergy Unknown patient Verified 08/24/18 08:49 unsure trimethoprim Allergy Unknown patient Verified 08/24/18 08:49 unsure peanut Allergy Verified 09/15/18 13:54 acarbose AdvReac Mild GI SYMPTOMS Verified 08/24/18 08:49 insulin glargine AdvReac Mild "Very ill" Verified 08/24/18 08:49 [From Lantus U-100 Insulin] - see comments metformin AdvReac Mild GI SYMPTOMS Verified 08/24/18 08:49 Penicillins AdvReac Mild dizzy, Verified 08/24/18 08:49 nausous (per patient) tolerated zosyn [id number] troglitazone AdvReac Mild GI SYMPTOMS Verified 08/24/18 08:49 Home Medications Home Medications Medication Instructions Recorded Confirmed Type ascorbic acid (vitamin C) 500 mg PO BID 06/11/18 09/14/18 History carvedilol 6.25 mg PO BIDM 06/11/18 09/14/18 History docusate sodium 100 mg PO BID 06/11/18 09/14/18 History folic acid 1 mg PO DAILY 06/11/18 09/14/18 History magnesium oxide 400 mg PO DAILY 06/11/18 09/14/18 History nitroglycerin See Rx Instructions .ROUTE .COMPLEX 06/11/18 09/14/18 History pantoprazole 40 mg PO QAM 06/11/18 09/14/18 History sucralfate 1 g PO QID 06/11/18 09/14/18 History Fiasp FlexTouch U-100 Insulin See Rx Instructions .ROUTE .COMPLEX 08/24/18 09/15/18 History Tresiba FlexTouch U-200 30 unit SUBCUT QAM 08/24/18 09/15/18 History aspirin [Aspirin Low Dose] 81 mg PO HS 08/24/18 09/14/18 History atorvastatin 40 mg PO DAILY 08/24/18 09/14/18 History carbidopa-levodopa 2 tab PO TID 08/24/18 09/14/18 History isosorbide mononitrate 30 mg PO DAILY 08/24/18 09/14/18 History oxycodone [OxyContin] 20 mg PO Q12H #6 tab 08/29/18 09/14/18 Rx pregabalin [Lyrica] 50 mg PO BID #6 cap 08/29/18 09/14/18 Rx ferrous sulfate 325 mg PO DAILY 09/14/18 09/14/18 History oxycodone 5 mg PO Q4H PRN 09/14/18 09/15/18 History venlafaxine 37.5 mg PO DAILY 09/14/18 09/15/18 History prochlorperazine maleate 10 mg PO Q8H PRN 09/15/18 09/15/18 History Past Med/Surg History Medical History Coronary artery disease (Chronic) "s/p PCI ? [place]" Hypertension (Chronic) GERD (gastroesophageal reflux disease) (Chronic) Diabetes mellitus, type 2 (Chronic) Diabetic neuropathy (Chronic) Parkinson's disease (Chronic) Recurrent urinary tract infection (Chronic) Chronic pain syndrome (Chronic) "arthritis + neuropathy" Atrial fibrillation (Chronic) "per old records" Surgical History Status post cardiac catheterization (Chronic) Status post coronary artery stent placement (Chronic) Status post cholecystectomy (Chronic) Hx of endoscopic retrograde cholangiopancreatography June 2018 Family History Other Myocardial infarction Social History Preferred Language: Setswana Communication Ability: Impaired Parts Consultant Required: No Beliefs That Will Affect Care: None marital status: / Current Living Situation: Other Current Living Situation Comment: Son and Daughter Feels Safe at Home: Yes Safety Concerns: Feels Safe At This Time Smoking Status: Never smoker Second Hand Exposure: No ; Hx Alcohol Use: Yes Hx Substance Use: No Review of Systems All systems reviewed & are unremarkable except as noted in HPI & below Physical Exam Physical Exam: Lying in bed in nad Constitutional: well developed and well nourished; no acute distress Eyes: PERRL, conjunctivae normal, anicteric sclerae Respiratory: normal respiratory effort, lungs clear to auscultation Gastrointestinal (Abdomen): normal bowel sounds, soft, nontender, no hepatosplenomegaly Musculoskeletal: no cyanosis or clubbing, extremities motor strength 5/5 Skin: no rashes, warm and dry Results & Data Vital Signs (Past 12 Hours) Vital Signs Temp Pulse Pulse Pulse Resp BP Pulse Ox 09/16/18 08:40 86 131/69 09/16/18 07:30 82 09/16/18 07:11 36.6 C 72 18 106/64 95 09/16/18 04:36 36.6 C 85 16 126/65 92 Labs reviewed: Wbc count elevated at 18.44, hgb 10.4, hct 33.1, plt 112, mcv 89.5 Na 138/K 4.2/Cl102/Co229/BUN 22/Cr 1.5 TB 4.7 (up from 1.0 yesterday) AST 135 AP 829 Alb 2.2 Globulin 4.3 Prior ERCP from 08/28 reviewed: papillary stenosis s/p extension of sphincterotomy choledocholithiasis removed stent pulled Code Status & VTE Plan VTE Prophylaxis Plan VTE Prophylaxis will be ordered: Yes Supervising Physician Co-Signing Physician Notes 82 yo fm with a history of parkinson's disease, reported liver mass managed thru [facility] with ? residual disease, chronic chest pain for which she was admitted with chest pain. cardiology assessment has been performed for her chest pain. GI now consulted for elevated lft's of which the significant change is an elevat ion in her tb from yesterday to today (1 to 4), and increase in her wbc count. She reports mild ruq pain. Mentating fine, stable hemodynamically though daughter reports she was hypotensive on admission but from the nitropaste she thinks. MRCP to evaluate bile ducts. Infectious work-up with blood cultures, ua, ucx given elevation in her wbc count. She is mentating fine. Pending results of MRCP will determine if she needs an ERCP. If she develops a fever, would start empiric antibiotics- broad spectrum and renally dosed.
[2018-09-16 11:48] LABS: Hematocrit (blood only) 32.7 % (37-47); Hemoglobin 10.1 g/dL (12.0-16.0); Mean Corpuscular Hgb Conc 30.9 g/dL (32-36); Mean Corpuscular Volume 88.6 fL (80-100); Mean Platelet Volume 12.2 fL (7.4-10.4); Platelet Count 100 K/uL (130-400); RDW Coefficient of Variation 15.4 % (11.5-14.5); RDW Standard Deviation 49.8 fL (36.4-46.3); Red Blood Count 3.69 M/uL (4.2-5.4); White Blood Count 9.69 K/uL (4.8-10.8)
[2018-09-16 11:55] LABS: Albumin Level 2.1 gm/dl (3.4-5.0); BUN Creatinine Ratio 25.7 (10-20); Calcium 9.3 mg/dl (8.5-10.1); Creatinine Clr Calc Pharmacy 33.8 ml/min; Est GFR (African American) 45.3; Est GFR (Non-African American) 39.1; Potassium 4.1 mmol/L (3.5-5.1)
[2018-09-16 12:00] LABS: Albumin Globulin Ratio 0.4 (0.9-2); Bilirubin,Total 3.6 mg/dl (0.2-1); Globulin 4.8 gm/dl (2.5-4.0); Total Protein 6.9 gm/dl (6.4-8.2)
[2018-09-16 12:05] LABS: Basophils # (auto) 0.01 K/uL (0-0.2); Basophils % (auto) 0.1 %; Eosinophils # (auto) 0.05 K/uL (0-0.5); Eosinophils % (auto) 0.5 %; Immature Granulocytes # (auto) 0.02 K/uL (0.00-0.02); Immature Granulocytes % (auto) 0.2 %; Lymphocytes # (auto) 0.76 K/uL (1.2-3.4); Lymphocytes % (auto) 7.8 %; Monocytes # (auto) 0.59 K/uL (0.11-0.59); Monocytes % (auto) 6.1 %; Neutrophils # (auto) 8.26 K/uL (1.4-6.5); Neutrophils % (auto) 85.3 %
[2018-09-16] MEDS: TRESIBA SQ SCH (14:47)
[2018-09-16] MEDS ORDERED: PIPERACILL/TAZOBAC CONSULT ACTIVE PRN (17:01)
[2018-09-16] MEDS ORDERED: PIPERACILLIN/TAZOBACTAM 4.5 GM in DEXTROSE 5% 100 ML IV ONE (17:15)
[2018-09-16] MEDS: OXYCODONE HCL IR 5 MG TAB (IMMEDIATE RELEASE) PO PRN (19:28)
--- NOTE | 2018-09-16 20:26 | Magnetic Resonance Report ---
MR MRCP HISTORY: elevated white blood cell count ct + bili- r/o cbd stone/cbd dilation TECHNIQUE: MRCP the abdomen was performed without the use of contrast. COMPARISON STUDY: Abdomen and pelvis CT 08/24/2018. MRCP 06/11/2018. FINDINGS: Increase in size in the 7.2 x 4.6 cm segment 5 hepatic mass. This is suboptimally assessed on this unenhanced exam. This mass results in abrupt cut off within the proximal right intrahepatic b ile ducts with mild dilatation distally. This remains unchanged. Slight nodular contour to the liver suggestive of cirrhosis. Mild periportal edema is noted. There is again noted a soft tissue component within the distended intrahepatic bile ducts surrounding the mass. The largest soft tissue component centrally measures 1.7 cm in thickness. This is also progressed in the interval. Mildly enlarged mes enteric lymph nodes are again noted. The largest lymph node measures 1.4 cm. The soft tissue componen t within the common bile duct has improved in the interval. There appears to small amount of soft tis abhishek at the distal common bile duct best seen on axial image of . The common bile duct is normal in caliber for age measuring 8 mm. The spleen and adrenal glands unremarkable. Mild urothelial thicke megan within the bilateral renal collecting systems persists. There are trace bilateral pleural effusi ons. Multiple small cystic lesions at the pancreatic head remain unchanged and likely represent side branch intraductal papillary mucinous neoplasms. Bilateral renal cysts are again noted.. IMPRESSION: 1. Increase in size in a 7.2 x 4.6 cm right hepatic lobe mass. The suspected soft tissue component wi thin the intrahepatic bile ducts has also slightly progressed. 2. However, the soft tissue component within the common bile duct has improved with only a small amou nt of soft tissue remaining at the distal common bile duct. There has also been improvement in the co mmon bile duct dilatation which is now normal in caliber for age measuring 8 mm. 3. Cirrhotic liver. 4. Mild urothelial thickening within the bilateral renal collecting systems is again noted. 5. A few mildly enlarged mesenteric lymph nodes remain unchanged. Electronically signed by: Carmine Desouza M.D. 09/16/2018 8:24 PM
[2018-09-16] MEDS: ASPIRIN 81 MG ECTAB PO SCH (21:05)
[2018-09-16] MEDS: IRON POLYSACCHARIDE COMPLEX 150 MG CAPSULE PO SCH (21:06)
[2018-09-16] MEDS: PIPERACILLIN/TAZOBACTAM 4.5 GM in DEXTROSE 5% 100 ML IV SCH (22:16)
--- NOTE | 2018-09-16 22:31 | Hospitalist Progress Note ---
Date of Service September 16, 2018 Assessment & Plan (1) Right upper quadrant abdominal pain: Patient initially admitted for chest pain. However her RUQ pain is becoming the number one problem. Her WBC have been increasing and LFTs worsening. Consulted GI will obtain an MRCP. D/W gastro, concern over cholecystitis, will place on empriic antibiotics. She did have bacteria in her urine but this appears to be asymptomatic bacteruria. (2) Chest pain: 82-year-old female was admitted on 14 September 2018 for chest pain. Of note, patient was hospitalized from -29 August for CP as well. Chest pain, CAD and PMH cardiac stents: Normally follows with [facility] cardiology in [place]. Seen by cardiology on last admission in August and recommended against further cardiac testing. She reports the onset of chest pain amongst generalized pains earlier today. - Cardio has seen patient again during this admission and does not feel this is cardiac in nature. Hypertensive urgency: PMH same. ED SBP as high as 229. At home is on Coreg and Imdur but some concerns that the patient has missed doses since hospital discharge. Treated with labetalol in ED. - Will keep on home medications and add metoprolol prn. BP dropped, may be secondary to nitro. will monitor. Ongoing medical issues: - Diabetes type 2, diabetic neuropathy: At home is on Tresiba and aspart as well as atorvastatin. --- Will keep her on her Tresiba and start insulin sliding scale. - Parkinson disease: Continue Sinemet. - Iron deficiency anemia: Admit hemoglobin 11.4. Comparisons around same. - Liver mass, elevated LFTs: History of TACE procedure. Follows with hepatology at [facility]. See discharge summary on 29 August for further details. This admit AST 155, alk phos 991. Record review notes recent ERCP in late August. - Depression, chronic pain syndrome: Continue home Lyrica, oxycodone, venlafaxine. - Atrial fibrillation: Is not on any anticoagulation per previous discharge summary. - GERD: Continue home pantoprazole. - Recurrent urinary tract infection. Code status: Unknown baseline code status, so will start at full code. Diet: Heart healthy, diabetes. DVT prophy: SCDs, heparin twice daily. PT/OT: Ordered. Disbo: Admit to med surg tele for observation. - Consulted case management. May need social service assistant to look into her home environment. (3) Coronary artery disease: Currently on aspirin, atorvastatin, beta-blockade and oral nitrates. Again, no evidence of an acute coronary syndrome. I do not believe her current symptoms are likely related to coronary insufficiency or angina. Based on her other comorbidities it does not seem as if a coronary evaluation at this point is warranted. (4) Hypertensive urgency: B/P is better controlled. will continue current regimen. (5) Diabetes mellitus, type 2: (6) Diabetic neuropathy: (7) Parkinson's disease: (8) Anemia: (9) Liver mass: (10) Elevated LFTs: (11) Depression: (12) Chronic pain syndrome: (13) Atrial fibrillation: She has a history of atrial fibrillation by report. According to her daughter she had atrial fibrillation while an inpatient in [place]. She has been in sinus rhythm here. Ideally she would be on anticoagulation but there was some concern over intrahepatic bleeding. I Think we can defer systemic anticoagulation currently. (14) GERD (gastroesophageal reflux disease): Subjective Patient reports no new symptoms at this time except for difficulty swallowing. Her daughter states that the patient has been having left sided chest pain which has been chronic and ongoing. Patient reports pain in her RUQ and it radiates to her left chest and left side of the abdomen. Review of Systems Constitutional: no sweats and no malaise Eyes: no diplopia Ear, Nose, Mouth, Throat: no ear trauma Cardiovascular: no chest pain with activity Musculoskeletal: no radicular pain Neurologic: no falls Psychiatric: no hopelessness Physical Exam Physical Exam: General patient appears to be slightly lethargic and in mild acute distress, obese HEENT: Atraumatic , normocephalic /no jaundice /no pallor /anicteric /no dry mucous membrane /normal external ear inspection Neck: Supple /no swelling /central trach Heart: S1/S2 normal/regular rate and rhythm/no gallop /no rub /no murmur Lungs: Clear to auscultation bilaterally/normal chest with expansion/no rhonchi/no rales/no wheezing/no use of accessory muscles of respiration Abdomen: Soft/nontender/no guarding/no rebound/no organomegaly/no pulsatile mass Musculoskeletal: No swelling/no edema/no tenderness/normal range of motion Neuro exam:follows all commands and answers questions, moves all extremities Skin: No rash on exposed skin area/no erythema Extremity: Normal pulse/no pitting edema/no clubbing or cyanosis Results & Data Vital Signs (Past 12 Hours) Vital Signs Temp Pulse Pulse Resp BP Pulse Ox 09/16/18 18:57 37.0 C 115 H 18 116/66 91 09/16/18 15:11 91 H 09/16/18 11:40 37.0 C 129 H 18 97/58 L 94 PG Care Time/CCT Total # of Minutes Spent Total Time Spent with Patient: Total time spent is greater than 50% in coordination of care (as documented) at patient's floor/unit and/or counseling patient: (1) Coronary artery disease Associated angina: without angina Coronary Disease-Associated Artery/Lesion type: [place] artery [place] vs. transplanted heart: [place] heart Qualified Code(s): I25.10 - Atherosclerotic heart disease of [place] coronary artery without angina pectoris (2) Atrial fibrillation Atrial fibrillation type: paroxysmal Qualified Code(s): I48.0 - Paroxysmal atrial fibrillation
[2018-09-17] MEDS: PIPERACILLIN/TAZOBACTAM 4.5 GM in DEXTROSE 5% 100 ML IV SCH ×3 (05:09→22:10)
[2018-09-17 07:47] LABS: Hematocrit (blood only) 31.9 % (37-47); Hemoglobin 9.9 g/dL (12.0-16.0); Mean Corpuscular Volume 88.4 fL (80-100); Platelet Count 115 K/uL (130-400); RDW Coefficient of Variation 15.5 % (11.5-14.5); RDW Standard Deviation 50.1 fL (36.4-46.3); Red Blood Count 3.61 M/uL (4.2-5.4); White Blood Count 6.45 K/uL (4.8-10.8)
[2018-09-17 08:24] LABS: BUN Creatinine Ratio 29.1 (10-20); Calcium 9.3 mg/dl (8.5-10.1); Creatinine Clr Calc Pharmacy 33.8 ml/min; Est GFR (African American) 44.9; Est GFR (Non-African American) 38.7; Magnesium 2.2 mg/dl (1.8-2.4); Potassium 4.1 mmol/L (3.5-5.1)
[2018-09-17] MEDS: CARVEDILOL 6.25 MG TAB PO SCH ×2 (08:31→17:07)
[2018-09-17] MEDS: PREGABALIN 50 MG CAP PO SCH ×2 (08:31→22:04)
[2018-09-17] MEDS: PANTOprazole 40 MG TAB PO SCH (08:31)
[2018-09-17] MEDS: ISOSORBIDE MONO EXTENDED REL 30 MG TABCR PO SCH (08:31)
[2018-09-17] MEDS: MAGNESIUM OXIDE 400 MG TAB PO SCH (08:31)
[2018-09-17] MEDS: ATORVASTATIN 40 MG TAB PO SCH (08:31)
[2018-09-17] MEDS: VENLAFAXINE HCL 37.5 MG TAB PO SCH (08:31)
[2018-09-17] MEDS: OXYCODONE HCL 20 MG TABCR (OXYCONTIN) PO SCH ×2 (08:31→22:04)
[2018-09-17] MEDS: SUCRALFATE 1 GM TAB PO SCH ×4 (08:32→21:50)
[2018-09-17] MEDS: FOLIC ACID 1 MG TAB PO SCH (08:32)
[2018-09-17] MEDS: ASCORBIC ACID 500 MG TAB PO SCH ×2 (08:32→21:51)
[2018-09-17] MEDS: CARBIDOPA/LEVODOPA 25/100MG TAB PO SCH ×3 (08:32→21:51)
[2018-09-17] MEDS: POLYETHYLENE (MIRALAX) 17 GM PACK PO SCH (08:32)
[2018-09-17] MEDS: TRESIBA SQ SCH (08:33)
[2018-09-17] MEDS: INSULIN ASPART 100 UNITS/ML 3 ML PEN SC SCH ×4 (08:33→22:00)
[2018-09-17] MEDS: DOCUSATE SODIUM 100 MG CAP PO SCH ×2 (08:34→22:01)
[2018-09-17 09:34] LABS: Bilirubin Direct 1.8 mg/dl (0-0.2); Bilirubin,Total 2.2 mg/dl (0.2-1); Total Protein 6.7 gm/dl (6.4-8.2)
--- NOTE | 2018-09-17 11:40 | Gastroenterology Progress Note ---
Date of Service September 17, 2018 Assessment & Plan (1) Liver mass: Liver tumor likely HCC is large and likely causing some CBD compression though not obstructing as evidenced by MRCP without obstruction and LFTs decreasing. Would allow regular diet and defer ERCP for now. Present on Admission?: Yes (2) Elevated LFTs: Present on Admission?: Yes Supervising Physician Co-Signing Physician Notes I have seen and examined the patient with Umang BOOKER. MRCP reviewed- cbd of 8 mm, normal for her age. Liver mass that is being followed through [facility]. UTI. PE- sleepy but arousable, abd - soft nt nd +bs Labs reviewed Imaging reviewed Agree with further plan of care as per Umang's assessment and plan. Subjective Ms. Talisha Acevedo is an 82 yr old female with a hx Parkinson's, NAFLD cirrhosis with large liver lesion, S/P TACE in 2017, being followed by [facility] hepatology in [place]. She underwent ERCP in July with placement of a stent then ERCP for removal in August. She was admitted on 09/16 for CP weakness. Cardiac w/u negative thus far. Today, LFTs slightly improved: T Bili 4.7->2.2, D bili 1.8, AST 135->115 , ALT 69->24 , Alk Phos [phone]->658. She is alert and oriented when awakened but otherwise seems very restful - lethargic. No continues to have left shoulder/upper chest pain as well as diffuse abdominal pain. Review of Systems Constitutional: + fatigue and + weakness; no fever and no chills Respiratory: no cough, no dyspnea and no wheezing Cardiovascular: + chest pain Gastrointestinal: + abdominal pain and + bloating; no nausea, no vomiting and no constipation Genitourinary: no dysuria and no hematuria Integumentary: no lesions Neurologic: + unsteadiness; no gait abnormality and no localized weakness Psychiatric: no irritability, no anxiety and no confusion Hematologic / Lymphatic: no easy bleeding and no lymphadenopathy Physical Exam Constitutional: WD/WN, vitals as above + obese Eyes: PERRL, conjunctivae normal, anicteric sclerae ENMT: external ear and nose normal, oropharynx normal Neck: trachea midline, no thyromegaly Respiratory: normal respiratory effort, lungs clear to auscultation Cardiovascular: RRR, no murmur, no edema Gastrointestinal (Abdomen): Inspection/Auscultation: abdomen not distended Percussion/Palpation: + abdomen tender (diffusely) and abdomen soft; no guarding Musculoskeletal: Head/Neck/Chest: neck supple Skin: no rashes, warm and dry + jaundice (mild) Neurologic: PERRL, EOMI, accommodation nl, no face palsy, no dysarthria Psychiatric: Mood: + depressed mood AAO x 3 Lymphatic: no lymphadenopathy Results & Data Vital Signs (Past 12 Hours) Vital Signs Temp Pulse Pulse Resp BP BP Pulse Ox 09/17/18 08:40 85 09/17/18 07:00 36.7 C 92 H 18 121/74 96 09/17/18 04:37 36.9 C 90 18 133/69 90 09/17/18 00:06 97 H Laboratory Results WBC 6, Hb 9.9, Hct 31, Platelets 115, Na 134, K 4.1, See HPI for LFts, BUN 37, Cr 1.27. Diagnostic Findings 1. Increase in size in a 7.2 x 4.6 cm right hepatic lobe mass. The suspected soft tissue component within the intrahepatic bile ducts has also slightly progressed. 2. However, the soft tissue component within the common bile duct has improved with only a small amount of soft tissue remaining at the distal common bile duct. There has also been improvement in the common bile duct dilatation which is now normal in caliber for age measuring 8 mm. 3. Cirrhotic liver. 4. Mild urothelial thickening within the bilateral renal collecting systems is again noted. 5. A few mildly enlarged mesenteric lymph nodes remain unchanged.
--- NOTE | 2018-09-17 15:04 | Infectious Disease Consult ---
Date of Consultation September 17, 2018 Assessment & Plan (1) Leukocytosis: unclear significance of + urine culture with only 1-5 wbc but on day 2 of abx. would suggest change to po amox and complete 3 day course. leukocytosis resolved, no evidence of GI source. Of note AST was >500 in June, likely due to underlying liver disease, follow with GI as planned. Ok for d/c from ID standpoint when otherwise stable. History of Present Illness Attending Physician: Lokesh Alonso pt admitted with cp, had transient leukocytosis and elevated AST, as high as 155 this admission, 115 today. has known liver mass and follows with [facility] for this. saw GI this admission, concern for cholecystitis initially, placed on emperic zosyn. blood cultures negative, UA 5-10 elis 2+ bacteria and culture grew E. faecalis. pt states she has some abd pain, unchanged, no gu symptoms. no f/c, afebrile since admission, creat 1.2, wbc 6. MRCP negative, no additional GI intervention. ID consulted for ongoing abx. tolerating well. resting com fortably, denies cp, sob, cough, [place]. no n/v/d. no complaints. All remaining ros reviewed and are negative. Allergies Allergy/AdvReac Type Severity Reaction Status Date / Time Iodinated Contrast- Oral and Allergy Intermediate IV Verified 08/24/18 08:49 IV Dye CONTRAST- HIVES mivacurium Allergy Mild dizzy, Verified 08/24/18 08:49 nauseous (per patient) Bactrim Allergy Unknown patient Verified 09/21/16 05:17 unsure Cipro Allergy Unknown unknown Verified 09/21/16 05:17 ciprofloxacin Allergy Unknown unknown Verified 08/24/18 08:49 nitrofurantoin Allergy Unknown unknown Verified 08/24/18 08:49 sulfamethoxazole Allergy Unknown patient Verified 08/24/18 08:49 unsure trimethoprim Allergy Unknown patient Verified 08/24/18 08:49 unsure peanut Allergy Verified 09/15/18 13:54 acarbose AdvReac Mild GI SYMPTOMS Verified 08/24/18 08:49 insulin glargine AdvReac Mild "Very ill" Verified 08/24/18 08:49 [From Lantus U-100 Insulin] - see comments metformin AdvReac Mild GI SYMPTOMS Verified 08/24/18 08:49 Penicillins AdvReac Mild dizzy, Verified 08/24/18 08:49 nausous (per patient) tolerated zosyn [id number] troglitazone AdvReac Mild GI SYMPTOMS Verified 08/24/18 08:49 Home Medications Home Medications Medication Instructions Recorded Confirmed Type ascorbic acid (vitamin C) 500 mg PO BID 06/11/18 09/14/18 History carvedilol 6.25 mg PO BIDM 06/11/18 09/14/18 History docusate sodium 100 mg PO BID 06/11/18 09/14/18 History folic acid 1 mg PO DAILY 06/11/18 09/14/18 History magnesium oxide 400 mg PO DAILY 06/11/18 09/14/18 History nitroglycerin See Rx Instructions .ROUTE .COMPLEX 06/11/18 09/14/18 History pantoprazole 40 mg PO QAM 06/11/18 09/14/18 History sucralfate 1 g PO QID 06/11/18 09/14/18 History Fiasp FlexTouch U-100 Insulin See Rx Instructions .ROUTE .COMPLEX 08/24/18 09/15/18 History Tresiba FlexTouch U-200 30 unit SUBCUT QAM 08/24/18 09/15/18 History aspirin [Aspirin Low Dose] 81 mg PO HS 08/24/18 09/14/18 History atorvastatin 40 mg PO DAILY 08/24/18 09/14/18 History carbidopa-levodopa 2 tab PO TID 08/24/18 09/14/18 History isosorbide mononitrate 30 mg PO DAILY 08/24/18 09/14/18 History oxycodone [OxyContin] 20 mg PO Q12H #6 tab 08/29/18 09/14/18 Rx pregabalin [Lyrica] 50 mg PO BID #6 cap 08/29/18 09/14/18 Rx ferrous sulfate 325 mg PO DAILY 09/14/18 09/14/18 History oxycodone 5 mg PO Q4H PRN 09/14/18 09/15/18 History venlafaxine 37.5 mg PO DAILY 09/14/18 09/15/18 History prochlorperazine maleate 10 mg PO Q8H PRN 09/15/18 09/15/18 History Patient History Medical History Coronary artery disease (Chronic) "s/p PCI ? [place]" Hypertension (Chronic) GERD (gastroesophageal reflux disease) (Chronic) Diabetes mellitus, type 2 (Chronic) Diabetic neuropathy (Chronic) Parkinson's disease (Chronic) Recurrent urinary tract infection (Chronic) Chronic pain syndrome (Chronic) "arthritis + neuropathy" Atrial fibrillation (Chronic) "per old records" Surgical History Status post cardiac catheterization (Chronic) Status post coronary artery stent placement (Chronic) Status post cholecystectomy (Chronic) Hx of endoscopic retrograde cholangiopancreatography June 2018 Family History Other Myocardial infarction Social History Preferred Language: Urdu Communication Ability: Impaired Manager Rental Required: No Beliefs That Will Affect Care: None marital status: / Current Living Situation: Other Current Living Situation Comment: Son and Daughter Feels Safe at Home: Yes Safety Concerns: Feels Safe At This Time Smoking Status: Never smoker Second Hand Exposure: No ; Hx Alcohol Use: Yes Hx Substance Use: No Physical Exam Constitutional: WD/WN, vitals as above Eyes: PERRL, conjunctivae normal, anicteric sclerae ENMT: external ear and nose normal, oropharynx normal Neck: normal visual inspection Respiratory: normal respiratory effort, lungs clear to auscultation Cardiovascular: RRR, no murmur, no edema Gastrointestinal (Abdomen): normal bowel sounds, soft, nontender, no hepatosplenomegaly Musculoskeletal: no cyanosis or clubbing, extremities motor strength 5/5 Skin: no rashes, warm and dry Psychiatric: A+Ox3, euthymic affect Results & Data Vital Signs (Past 12 Hours) Vital Signs Temp Pulse Pulse Resp BP BP Pulse Ox 09/17/18 11:31 36.7 C 83 16 134/83 95 09/17/18 08:40 85 09/17/18 07:00 36.7 C 92 H 18 121/74 96 09/17/18 04:37 36.9 C 90 18 133/69 90 Laboratory Results Microbiology 09/16/18 13:02 Blood Aerobic Blood Culture - Preliminary No growth in Aerobic bottle after 24 hours. 09/16/18 13:02 Blood Anaerobic Blood Culture - Preliminary No growth in Anaerobic bottle after 24 hours. 09/16/18 13:11 Blood Aerobic Blood Culture - Preliminary No growth in Aerobic bottle after 24 hours. 09/16/18 13:11 Blood Anaerobic Blood Culture - Preliminary No growth in Anaerobic bottle after 24 hours. 09/15/18 19:30 Urine,Clean Catch Urine Culture - Final Enterococcus faecalis PG Care Time/CCT Total # of Minutes Spent Total Time Spent with Patient: Total time spent is greater than 50% in coordination of care (as documented) at patient's floor/unit and/or counseling p atient:
[2018-09-17] MEDS: OXYCODONE HCL IR 5 MG TAB (IMMEDIATE RELEASE) PO PRN (18:17)
[2018-09-17] MEDS: IRON POLYSACCHARIDE COMPLEX 150 MG CAPSULE PO SCH (21:49)
[2018-09-17] MEDS: ASPIRIN 81 MG ECTAB PO SCH (21:50)
--- NOTE | 2018-09-17 23:56 | Hospitalist Progress Note ---
Date of Service September 17, 2018 Assessment & Plan (1) Right upper quadrant abdominal pain: Patient initially admitted for chest pain. However her RUQ pain is becoming the number one problem. Her WBC had been increasing and LFTs worsening. Consulted GI will obtain an MRCP. On day of MRCP labs started to improve. However, it did show increase in tumor size. Empiric antibiotics will continue however, will discuss with ID to see if asymptomatic bacteriruia needs to be treated . (2) Chest pain: 82-year-old female was admitted on 14 September 2018 for chest pain. Of note, patient was hospitalized from -29 August for CP as well. Chest pain, CAD and PMH cardiac stents: Normally follows with [facility] cardiology in [place]. Seen by cardiology on last admission in August and recommended against further cardiac testing. She reports the onset of chest pain amongst generalized pains earlier today. - Cardio has seen patient again during this admission and does not feel this is cardiac in nature. Hypertensive urgency: PMH same. ED SBP as high as 229. At home is on Coreg and Imdur but some concerns that the patient has missed doses since hospital discharge. Treated with labetalol in ED. - Will keep on home medications and add metoprolol prn. BP dropped, may be secondary to nitro. On 09/17 BP appears to be bettter controlled. Ongoing medical issues: - Diabetes type 2, diabetic neuropathy: At home is on Tresiba and aspart as well as atorvastatin. --- Will keep her on her Tresiba and start insulin sliding scale. - Parkinson disease: Continue Sinemet. - Iron deficiency anemia: Admit hemoglobin 11.4. Comparisons around same. - Liver mass, elevated LFTs: History of TACE procedure. Follows with hepatology at [facility]. See discharge summary on 29 August for further details. This admit AST 155, alk phos 991. Record review notes recent ERCP in late August. - Depression, chronic pain syndrome: Continue home Lyrica, oxycodone, venlafaxine. - Atrial fibrillation: Is not on any anticoagulation per previous discharge summary. - GERD: Continue home pantoprazole. - H/O Recurrent urinary tract infection: appears to be asymptomatic bacteriruia. will monitor. -Metabolic encephalopathy, resolved: patient was lethargic.likely related to the hypertensive urgency and the increased WBC. Code status: Unknown baseline code status, so will start at full code. Diet: Heart healthy, diabetes. DVT prophy: SCDs, heparin twice daily. PT/OT: Ordered. Disbo: Admit to med surg tele for observation. - Consulted case management. May need social worker assistant to look into her home environment. (3) Coronary artery disease: Currently on aspirin, atorvastatin, beta-blockade and oral nitrates. Again, no evidence of an acute coronary syndrome. I do not believe her current symptoms are likely related to coronary insufficiency or angina. Based on her other comorbidities it does not seem as if a coronary evaluation at this point is warranted. (4) Hypertensive urgency: B/P is better controlled. will continue current regimen. (5) Diabetes mellitus, type 2: (6) Diabetic neuropathy: (7) Parkinson's disease: (8) Anemia: (9) Liver mass: (10) Elevated LFTs: (11) Depression: (12) Chronic pain syndrome: (13) Atrial fibrillation: She has a history of atrial fibrillation by report. According to her daughter she had atrial fibrillation while an inpatient in [place]. She has been in sinus rhythm here. Ideally she would be on anticoagulation but there was some concern over intrahepatic bleeding. I Think we can defer systemic anticoagulation currently. (14) GERD (gastroesophageal reflux disease): Subjective Patient reports feeling better today.Patient has no new complaints today. Daughter is at bedside and updated. Review of Systems Review of Systems: All systems reviewed & are unremarkable except as noted in HPI & below Physical Exam Physical Exam: General patient appears to be more awake today, obese HEENT: Atraumatic , normocephalic /no jaundice /no pallor /anicteric /no dry mucous membrane /normal external ear inspection Neck: Supple /no swelling /central trach Heart: S1/S2 normal/regular rate and rhythm/no gallop /no rub /no murmur Lungs: Clear to auscultation bilaterally/normal chest with expansion/no rhonchi/no rales/no wheezing/no use of accessory muscles of respiration Abdomen: Soft/nontender/no guarding/no rebound/no organomegaly/no pulsatile mass Musculoskeletal: No swelling/no edema/no tenderness/normal range of motion Neuro exam:follows all commands and answers questions, moves all extremities Skin: No rash on exposed skin area/no erythema Extremity: Normal pulse/no pitting edema/no clubbing or cyanosis Results & Data Vital Signs (Past 12 Hours) Vital Signs Temp Pulse Pulse Resp BP Pulse Ox 09/17/18 23:17 36.7 C 83 18 122/71 92 09/17/18 20:18 37.0 C 82 18 133/80 93 09/17/18 15:30 72 09/17/18 15:21 36.9 C 77 17 104/53 L 95 PG Care Time/CCT Total # of Minutes Spent Total Time Spent with Patient: Total time spent is greater than 50% in coordination of care (as documented) at patient's floor/unit and/or counseling patient: (1) Coronary artery disease Associated angina: without angina Coronary Disease-Associated Artery/Lesion type: [place] artery [place] vs. transplanted heart: [place] heart Qualified Code(s): I25.10 - Atherosclerotic heart disease of [place] coronary artery without angina pectoris (2) Atrial fibrillation Atrial fibrillation type: paroxysmal Qualified Code(s): I48.0 - Paroxysmal atrial fibrillation
[2018-09-18] MEDS: PIPERACILLIN/TAZOBACTAM 4.5 GM in DEXTROSE 5% 100 ML IV SCH (05:52)
[2018-09-18] MEDS: OXYCODONE HCL 20 MG TABCR (OXYCONTIN) PO SCH ×2 (07:50→20:54)
[2018-09-18] MEDS: CARVEDILOL 6.25 MG TAB PO SCH ×2 (07:51→17:21)
[2018-09-18] MEDS: ISOSORBIDE MONO EXTENDED REL 30 MG TABCR PO SCH (07:51)
[2018-09-18] MEDS: PANTOprazole 40 MG TAB PO SCH (07:51)
[2018-09-18] MEDS: POLYETHYLENE (MIRALAX) 17 GM PACK PO SCH (07:51)
[2018-09-18] MEDS: PREGABALIN 50 MG CAP PO SCH ×2 (07:51→20:54)
[2018-09-18] MEDS: ATORVASTATIN 40 MG TAB PO SCH (07:51)
[2018-09-18] MEDS: MAGNESIUM OXIDE 400 MG TAB PO SCH (07:51)
[2018-09-18] MEDS: ASCORBIC ACID 500 MG TAB PO SCH ×2 (07:52→20:49)
[2018-09-18] MEDS: FOLIC ACID 1 MG TAB PO SCH (07:52)
[2018-09-18] MEDS: CARBIDOPA/LEVODOPA 25/100MG TAB PO SCH ×3 (07:52→20:48)
[2018-09-18] MEDS: SUCRALFATE 1 GM TAB PO SCH ×4 (07:52→20:49)
[2018-09-18] MEDS: VENLAFAXINE HCL 37.5 MG TAB PO SCH (07:53)
[2018-09-18] MEDS: DOCUSATE SODIUM 100 MG CAP PO SCH ×2 (07:56→20:54)
[2018-09-18] MEDS: INSULIN ASPART 100 UNITS/ML 3 ML PEN SC SCH ×4 (08:05→20:51)
[2018-09-18] MEDS: TRESIBA SQ SCH (08:06)
[2018-09-18] MEDS: OXYCODONE HCL IR 5 MG TAB (IMMEDIATE RELEASE) PO PRN (15:44)
[2018-09-18] MEDS ORDERED: AMOXICILLIN 500 MG CAP PO SCH (17:00)
[2018-09-18] MEDS: AMOXICILLIN 500 MG CAP PO SCH (20:48)
[2018-09-18] MEDS: ASPIRIN 81 MG ECTAB PO SCH (20:50)
[2018-09-18] MEDS: IRON POLYSACCHARIDE COMPLEX 150 MG CAPSULE PO SCH (20:50)
--- NOTE | 2018-09-18 23:29 | Hospitalist Progress Note ---
Date of Service September 18, 2018 Assessment & Plan (1) Right upper quadrant abdominal pain: Patient initially admitted for chest pain. However her RUQ pain is becoming the number one problem. Her WBC had been increasing and LFTs worsening. Consulted GI will obtain an MRCP. On day of the MRCP labs started to improve. LFTs also are showing improvement. The imaging did show an increase in tumor size. (2) Chest pain: 82-year-old female was admitted on 14 September 2018 for chest pain. Of note, patient was hospitalized from -29 August for CP as well. Chest pain, CAD and PMH cardiac stents: Normally follows with [facility] cardiology in [place]. Seen by cardiology on last admission in August and recommended against further cardiac testing. She reports the onset of chest pain amongst generalized pains earlier today. - Cardio has seen patient again during this admission and does not feel this is cardiac in nature. Hypertensive urgency: PMH same. ED SBP as high as 229. At home is on Coreg and Imdur but some concerns that the patient has missed doses since hospital discharge. Treated with labetalol in ED. - Will keep on home medications and add metoprolol prn. BP dropped, may be secondary to nitro. On 09/17 BP appears to be bettter controlled. Ongoing medical issues: - Diabetes type 2, diabetic neuropathy: At home is on Tresiba and aspart as well as atorvastatin. --- Will keep her on her Tresiba and start insulin sliding scale. - Parkinson disease: Continue Sinemet. - Iron deficiency anemia: Admit hemoglobin 11.4. Comparisons around same. - Liver mass, elevated LFTs: History of TACE procedure. Follows with hepatology at [facility]. See discharge summary on 29 August for further details. This admit AST 155, alk phos 991. Record review notes recent ERCP in late August. - Depression, chronic pain syndrome: Continue home Lyrica, oxycodone, venlafaxine. - Atrial fibrillation: Is not on any anticoagulation per previous discharge summary. - GERD: Continue home pantoprazole. - H/O Recurrent urinary tract infection: appears to be asymptomatic bacteriruia. will monitor. -Metabolic encephalopathy, resolved: patient was lethargic.likely related to the hypertensive urgency and the increased WBC. Code status: Unknown baseline code status, so will start at full code. Diet: Heart healthy, diabetes. DVT prophy: SCDs, heparin twice daily. PT/OT: Ordered. - Consulted case management. May need forensic social worker to look into her home environment. Plan is to discharge patient in the AM. (3) Coronary artery disease: Currently on aspirin, atorvastatin, beta-blockade and oral nitrates. Again, no evidence of an acute coronary syndrome. I do not believe her current symptoms are likely related to coronary insufficiency or angina. Based on her other comorbidities it does not seem as if a coronary evaluation at this point is warranted. (4) Hypertensive urgency: B/P is better controlled. will continue current regimen. (5) Diabetes mellitus, type 2: (6) Diabetic neuropathy: (7) Parkinson's disease: (8) Anemia: (9) Liver mass: (10) Elevated LFTs: (11) Depression: (12) Chronic pain syndrome: (13) Atrial fibrillation: She has a history of atrial fibrillation by report. According to her daughter she had atrial fibrillation while an inpatient in [place]. She has been in sinus rhythm here. Ideally she would be on anticoagulation but there was some concern over intrahepatic bleeding. I Think we can defer systemic anticoagulation currently. (14) GERD (gastroesophageal reflux disease): (15) Leukocytosis: Will place patient on amoxicillin for possible UTI. (present on admission) Subjective 82 yo female reports no new symptoms today. Review of Systems Review of Systems: All systems reviewed & are unremarkable except as noted in HPI & below Physical Exam Physical Exam: General patient appears to be more awake today, obese HEENT: Atraumatic , normocephalic /no jaundice /no pallor /anicteric /no dry mucous membrane /normal external ear inspection Neck: Supple /no swelling /central trach Heart: S1/S2 normal/regular rate and rhythm/no gallop /no rub /no murmur Lungs: Clear to auscultation bilaterally/normal chest with expansion/no rhonchi/no rales/no wheezing/no use of accessory muscles of respiration Abdomen: Soft/nontender/no guarding/no rebound/no organomegaly/no pulsatile mass Musculoskeletal: No swelling/no edema/no tenderness/normal range of motion Neuro exam:follows all commands and answers questions, moves all extremities Skin: No rash on exposed skin area/no erythema Extremity: Normal pulse/no pitting edema/no clubbing or cyanosis Results & Data Vital Signs (Past 12 Hours) Vital Signs Temp Pulse Pulse Pulse Resp BP BP 09/18/18 22:13 36.8 C 85 154/84 H 09/18/18 20:45 84 150/84 H 09/18/18 16:00 79 09/18/18 15:01 36.5 C 80 18 134/75 Pulse Ox 09/18/18 22:13 94 09/18/18 20:45 09/18/18 16:00 09/18/18 15:01 95 PG Care Time/CCT Total # of Minutes Spent Total Time Spent with Patient: Total time spent is greater than 50% in coordination of care (as documented) at patient's floor/unit and/or counseling patient: (1) Coronary artery disease Associated angina: without angina Coronary Disease-Associated Artery/Lesion type: [place] artery [place] vs. transplanted heart: [place] heart Qualified Code(s): I25.10 - Atherosclerotic heart disease of [place] coronary artery without angina pectoris (2) Atrial fibrillation Atrial fibrillation type: paroxysmal Qualified Code(s): I48.0 - Paroxysmal atrial fibrillation
[2018-09-19] MEDS: SUCRALFATE 1 GM TAB PO SCH (08:38)
[2018-09-19] MEDS: CARVEDILOL 6.25 MG TAB PO SCH (08:38)
[2018-09-19] MEDS: AMOXICILLIN 500 MG CAP PO SCH (08:38)
[2018-09-19] MEDS: VENLAFAXINE HCL 37.5 MG TAB PO SCH (08:39)
[2018-09-19] MEDS: ATORVASTATIN 40 MG TAB PO SCH (08:40)
[2018-09-19] MEDS: FOLIC ACID 1 MG TAB PO SCH (08:40)
[2018-09-19] MEDS: ISOSORBIDE MONO EXTENDED REL 30 MG TABCR PO SCH (08:40)
[2018-09-19] MEDS: OXYCODONE HCL 20 MG TABCR (OXYCONTIN) PO SCH (08:41)
[2018-09-19] MEDS: POLYETHYLENE (MIRALAX) 17 GM PACK PO SCH (08:41)
[2018-09-19] MEDS: MAGNESIUM OXIDE 400 MG TAB PO SCH (08:41)
[2018-09-19] MEDS: PREGABALIN 50 MG CAP PO SCH (08:41)
[2018-09-19] MEDS: ASCORBIC ACID 500 MG TAB PO SCH (08:42)
[2018-09-19] MEDS: CARBIDOPA/LEVODOPA 25/100MG TAB PO SCH (08:42)
[2018-09-19] MEDS: PANTOprazole 40 MG TAB PO SCH (08:42)
[2018-09-19] MEDS: DOCUSATE SODIUM 100 MG CAP PO SCH (08:46)
[2018-09-19] MEDS: INSULIN ASPART 100 UNITS/ML 3 ML PEN SC SCH (08:48)
[2018-09-19] MEDS: TRESIBA SQ SCH (08:49)
--- NOTE | 2018-09-27 09:59 | Discharge Summary ---
Date of Service September 19, 2018 Admission HPI Per Admitting Provider 82 yo fm with a history of eveline's disease, right sided liver mass s/p tace james 1 year ago through [facility] now with ? residual disease per discussion with her daughter at bedside today but still being managed through [facility], prior papillary stenosis with extension of sphincterotomy done on 08/28/18 and removal of cbd stones. She has had issues with chronic chest pain it appears on chart review. She was admitted recently at the end of 08/23, underwent ERCP on 08/28/18 with cbd stone removal, extension of sphincterotomy, 5 days of ceftrixaone. Dc'd to [facility] from [facility]. Home from [facility] on 09/12/18, admitted here again on 09/14/18 with chest pain. Her workup for chest pain included ekg, troponin, cardiology consultation. She was briefly on nitropaste that her daughter feels made her have altered mental status. GI is consulted on 09/15/18 for elevated lfts. The patient is lying in bed. Alert and oriented to person/place/time. She reports no overt fevers, chills. Does endorse ruq discomfort. No dysuria, . She is not on blood thinners. Her daughter states they still have follow-up with [facility] early 10/24 for the liver mass. Principal Diagnosis Right upper quadrant abdominal pain Discharge Exam General patient appears to be more awake today, obese HEENT: Atraumatic , normocephalic /no jaundice /no pallor /anicteric /no dry mucous membrane /normal external ear inspection Neck: Supple /no swelling /central trach Heart: S1/S2 normal/regular rate and rhythm/no gallop /no rub /no murmur Lungs: Clear to auscultation bilaterally/normal chest with expansion/no rhonchi/no rales/no wheezing/no use of accessory muscles of respiration Abdomen: Soft/nontender/no guarding/no rebound/no organomegaly/no pulsatile mass Musculoskeletal: No swelling/no edema/no tenderness/normal range of motion Neuro exam:follows all commands and answers questions, moves all extremities Skin: No rash on exposed skin area/no erythema Extremity: Normal pulse/no pitting edema/no clubbing or cyanosis Discharge Data Allergies Allergy/AdvReac Type Severity Reaction Status Date / Time Iodinated Contrast- Oral and Allergy Intermediate IV Verified 08/24/18 08:49 IV Dye CONTRAST- HIVES mivacurium Allergy Mild dizzy, Verified 08/24/18 08:49 nauseous (per patient) Bactrim Allergy Unknown patient Verified 09/21/16 05:17 unsure Cipro Allergy Unknown unknown Verified 09/21/16 05:17 ciprofloxacin Allergy Unknown unknown Verified 08/24/18 08:49 nitrofurantoin Allergy Unknown unknown Verified 08/24/18 08:49 sulfamethoxazole Allergy Unknown patient Verified 08/24/18 08:49 unsure trimethoprim Allergy Unknown patient Verified 08/24/18 08:49 unsure peanut Allergy Verified 09/15/18 13:54 acarbose AdvReac Mild GI SYMPTOMS Verified 08/24/18 08:49 insulin glargine AdvReac Mild "Very ill" Verified 08/24/18 08:49 [From Lantus U-100 Insulin] - see comments metformin AdvReac Mild GI SYMPTOMS Verified 08/24/18 08:49 Penicillins AdvReac Mild dizzy, Verified 08/24/18 08:49 nausous (per patient) tolerated zosyn [id number] troglitazone AdvReac Mild GI SYMPTOMS Verified 08/24/18 08:49 Consultations 09/14/18 22:50 ED Decision to Admit Stat 09/15/18 01:17 Consult Cardiology Routine Consult Case Management - Discharge Planning Routine 09/16/18 10:19 Consult Gastroenterology Routine 09/17/18 13:29 Consult Infectious Diseases Routine Ordered Studies 09/16/18 11:18 MR MRCP Urgent Hospital Course (1) Right upper quadrant abdominal pain: Patient initially admitted for chest pain. However her RUQ pain is becoming the number one problem. Her WBC had been increasing and LFTs worsening. Consulted GI will obtain an MRCP. On day of the MRCP labs started to improve. LFTs also are showing improvement. The imaging did show an increase in tumor size. Gastro documented the following: Liver tumor likely HCC is large and likely causing some CBD compression though not obstructing as evidenced by MRCP without obstruction and LFTs decreasing. Would allow regular diet and defer ERCP for now. (2) Chest pain: 82-year-old female was admitted on 14 September 2018 for chest pain. Of note, patient was hospitalized from -29 August for CP as well. Chest pain, CAD and PMH cardiac stents: Normally follows with [facility] cardiology in [place]. Seen by cardiology on last admission in August and recommended against further cardiac testing. She reports the onset of chest pain amongst generalized pains earlier today. - Cardio has seen patient again during this admission and does not feel this is cardiac in nature. Hypertensive urgency: PMH same. ED SBP as high as 229. At home is on Coreg and Imdur but some concerns that the patient has missed doses since hospital discharge. Treated with labetalol in ED. - Will keep on home medications and add metoprolol prn. BP dropped, may be secondary to nitro. On 09/17 BP appears to be bettter controlled. Ongoing medical issues: - Diabetes type 2, diabetic neuropathy: At home is on Tresiba and aspart as well as atorvastatin. --- Will keep her on her Tresiba and start insulin sliding scale. - Parkinson disease: Continue Sinemet. - Iron deficiency anemia: Admit hemoglobin 11.4. Comparisons around same. - Liver mass, elevated LFTs: History of TACE procedure. Follows with hepatology at [facility]. See discharge summary on 29 August for further details. This admit AST 155, alk phos 991. Record review notes recent ERCP in late August. - Depression, chronic pain syndrome: Continue home Lyrica, oxycodone, venlafaxine. - Atrial fibrillation: Is not on any anticoagulation per previous discharge summary. - GERD: Continue home pantoprazole. - H/O Recurrent urinary tract infection: appears to be asymptomatic bacteriruia. will monitor. -Metabolic encephalopathy, resolved: patient was lethargic.likely related to the hypertensive urgency and the increased WBC. Code status: Unknown baseline code status, so will start at full code. Diet: Heart healthy, diabetes. DVT prophy: SCDs, heparin twice daily. PT/OT: Ordered. - Daughter has been actively involved in patient care during hospital stay. Informed this to case management, do not believe of foul play at home. Plan is to discharge patient today. (3) Coronary artery disease: Currently on aspirin, atorvastatin, beta-blockade and oral nitrates. Again, no evidence of an acute coronary syndrome. I do not believe her current symptoms are likely related to coronary insufficiency or angina. Based on her other comorbidities it does not seem as if a coronary evaluation at this point is warranted. (4) Hypertensive urgency: B/P is better controlled. will continue current regimen. (5) Diabetes mellitus, type 2: (6) Diabetic neuropathy: (7) Parkinson's disease: (8) Anemia: (9) Liver mass: (10) Elevated LFTs: (11) Depression: (12) Chronic pain syndrome: (13) Atrial fibrillation: She has a history of atrial fibrillation by report. According to her daughter she had atrial fibrillation while an inpatient in [place]. She has been in sinus rhythm here. Ideally she would be on anticoagulation but there was some concern over intrahepatic bleeding. I Think we can defer systemic anticoagulation currently. (14) GERD (gastroesophageal reflux disease): (15) Leukocytosis: Will place patient on amoxicillin for possible UTI. (present on admission) Total Time Total Time Spent Total Time Spent (In Minutes): 32 Total Time Includes: Examination of the Patient, Discharge Planning and Medication Reconciliation Discharge Plan Discharge Items Patient Disposition: Home - Home Health Services Reason For Visit: CHEST PAIN Discharge Diagnosis: Abdominal pain likely from liver mass Discharge Goals: Decrease discomfort Activity: Resume your previous activity Non-emergency contact: Primary Care Provider Call non-emergency contact if: you have any medication questions Follow-up/Referrals: Krishna Villanueva [Primary Care Provider] - Diet: Carb Consistent or DM2 Diet Texture: Dental soft (bite-sized) Addtl Provider Instructions: Recommend f/u with [facility] for liver mass eval Follow up with PCP in within 2 weeks. Prescriptions: New amoxicillin 500 mg tablet 500 mg PO TID Qty: 7 RF: 0 Continued sucralfate 1 gram Tablet 1 g PO QID RF: 0 docusate sodium 100 mg Capsule 100 mg PO BID RF: 0 carvedilol 6.25 mg Tablet 6.25 mg PO BIDM RF: 0 ascorbic acid (vitamin C) 500 mg Tablet 500 mg PO BID RF: 0 pantoprazole 40 mg Tablet,Delayed Release (Dr/Ec) 40 mg PO QAM RF: 0 nitroglycerin 0.4 mg Tablet, Sublingual See Rx Instructions .ROUTE .COMPLEX RF: 0 folic acid 1 mg Tablet 1 mg PO DAILY RF: 0 magnesium oxide 400 mg magnesium Tablet 400 mg PO DAILY RF: 0 atorvastatin 40 mg Tablet 40 mg PO DAILY RF: 0 isosorbide mononitrate 30 mg Tablet Extended Release 24 Hr 30 mg PO DAILY RF: 0 aspirin [Aspirin Low Dose] 81 mg Tablet,Delayed Release (Dr/Ec) 81 mg PO HS RF: 0 carbidopa-levodopa 25-100 mg Tablet 2 tab PO TID RF: 0 Tresiba FlexTouch U-200 200 unit/mL (3 mL) Insulin Pen 30 unit SUBCUT QAM RF: 0 Fiasp FlexTouch U-100 Insulin 100 unit/mL (3 mL) Insulin Pen See Rx Instructions .ROUTE .COMPLEX RF: 0 pregabalin [Lyrica] 50 mg Capsule 50 mg PO BID Qty: 6 RF: 0 oxycodone [OxyContin] 20 mg Tablet,Oral Only,Ext.Rel.12 Hr 20 mg PO Q12H Qty: 6 RF: 0 ferrous sulfate 325 mg (65 mg iron) Tablet 325 mg PO DAILY RF: 0 oxycodone 5 mg Tablet 5 mg PO Q4H PRN (Reason: Pain) RF: 0 venlafaxine 25 mg Tablet 37.5 mg PO DAILY RF: 0 prochlorperazine maleate 10 mg Tablet 10 mg PO Q8H PRN (Reason: Nausea) RF: 0 Stand-Alone Forms: [facility] Discharge Orders: Discharge Order (Routine); Ordered 09/19/18 Ordered By: Lokesh Alonso Admission Data Admit Date/Time: 09/16/18 12:04 Attending Provider: Lokesh Alonso Admit Provider: Marito Seaman Primary Care Provider: Krishna Villanueva Other Providers: Quinn Brumfield ; Justin Jaime ; Anu Rod ; Tish Wild Service: Medical Other Interventions: Discharge Summary Assessment (RN) Last Done: 09/19/18 09:48 DC Date/Time DO NOT enter until pt leaves facility: 09/19/18 10:35
== END 2018-09-19 10:35 | disposition home health service (06) | DRG 304 ==
LOC: 2N 20:06 → ED 20:06 → SUATTDRO 23:32 → 2N 09-15 00:43 → 4W 09-18 22:10

== ENCOUNTER 2019-02-02 09:33 | Inpatient (IN) ==
[2019-02-02] MEDS ORDERED: SODIUM CHLORIDE 0.9% 500 ML IV SCH (10:00)
--- NOTE | 2019-02-02 10:07 | XRay Report ---
XR chest 1V portable HISTORY: 83 years-old Female weakness acute weakness COMPARISON: Chest radiograph 09/14/2018 TECHNIQUE: Portable AP view of the chest FINDINGS: Cardiac silhouette is mildly enlarged. Coronary arterial stent grafts noted. No pneumothorax, pleural effusion, focal airspace consolidation or overt pulmonary edema. Degenerative changes of the shoulde rs and spine. IMPRESSION: Mild cardiomegaly without acute process. ACT 112: Negative or not required by law. The above report was generated using voice recognition software. It may contain grammatical, syntax o r spelling errors. Electronically signed by: Marito Grimes M.D. 02/02/2019 10:05 AM
[2019-02-02 10:28] LABS: Basophils # (auto) 0.02 K/uL (0-0.2); Basophils % (auto) 0.3 %; Eosinophils # (auto) 0.09 K/uL (0-0.5); Eosinophils % (auto) 1.3 %; Hematocrit (blood only) 36.8 % (37-47); Hemoglobin 11.4 g/dL (12.0-16.0); Immature Granulocytes # (auto) 0.01 K/uL (0.00-0.02); Immature Granulocytes % (auto) 0.1 %; Lymphocytes % (auto) 14.1 %; Mean Corpuscular Hemoglobin 28.7 pg (25-34); Mean Corpuscular Volume 92.7 fL (80-100); Mean Platelet Volume 12.4 fL (7.4-10.4); Monocytes # (auto) 0.61 K/uL (0.11-0.59); Monocytes % (auto) 8.6 %; Neutrophils # (auto) 5.37 K/uL (1.4-6.5); Neutrophils % (auto) 75.6 %; Platelet Count 138 K/uL (130-400); RDW Coefficient of Variation 14.6 % (11.5-14.5); RDW Standard Deviation 49.3 fL (36.4-46.3); Red Blood Count 3.97 M/uL (4.2-5.4)
[2019-02-02 10:37] LABS: Prothrombin Time 10.3 Seconds (9.0-12.0)
[2019-02-02 10:47] LABS: Alanine Aminotransferase 103 U/L (12-78); Albumin Level 2.6 gm/dl (3.4-5.0); Aspartate Aminotransferase 318 U/L (15-37); BUN Creatinine Ratio 17.3 (10-20); Blood Urea Nitrogen 16 mg/dl (7-18); Calcium 9.6 mg/dl (8.5-10.1); Carbon Dioxide 29 mmol/L (21-32); Chloride 102 mmol/L (98-107); Creatinine Clr Calc Pharmacy 49.8 ml/min; Est GFR (African American) 66.7; Est GFR (Non-African American) 57.5; Glucose 157 mg/dl (70-99); Potassium 4.2 mmol/L (3.5-5.1); Sodium 137 mmol/L (136-145)
[2019-02-02 10:55] LABS: Appearance Urine Clear (Clear); Blood Urine Negative (Negative); Color Urine Dark Yellow; Epithelial Cell Urine Auto >30 /lpf (0-5); Glucose Urine UA Negative (Negative); Ketones Urine Negative (Negative); Leukocyte Esterase Urine 3+ (Negative); Nitrite Urine Positive (Negative); Protein Urine Negative (Negative); RBC Urine Automated 0-4 /hpf (0-4); Specific Gravity Urine 1.012 (1.000-1.030); Urobilinogen Urine Negative (Negative); WBC Urine Automated >30 /hpf (0-5); pH Urine 6.5 (4.5-7.5)
[2019-02-02] MEDS ORDERED: ASPIRIN CHEW 324 MG PO STA (10:55)
[2019-02-02 11:01] LABS: Albumin Globulin Ratio 0.5 (0.9-2); Alkaline Phosphatase 1354 U/L (45-117); Bilirubin,Total 2.9 mg/dl (0.2-1); Globulin 5.1 gm/dl (2.5-4.0); Total Protein 7.7 gm/dl (6.4-8.2); Troponin I < 0.015 ng/ml (0-0.045)
[2019-02-02 11:06] LABS: Bilirubin Urine 1+ (Negative)
[2019-02-02 11:07] LABS: Ictotest Urine Positive (Negative)
[2019-02-02 11:08] LABS: Bacteria Urine Automated 1+ (Negative)
[2019-02-02] MEDS ORDERED: NITROGLYCERIN SL 0.4 MG/TAB TAB SL STA (12:02)
[2019-02-02] MEDS ORDERED: cefTRIAXone SODIUM 1,000 MG/50 ML BAG IV STA (12:02)
--- NOTE | 2019-02-02 13:45 | History & Physical Report ---
Date of Service February 02, 2019 Assessment & Plan (1) Acute UTI: Patient with acute, recurrent UTI. May need to obtain a urine culture results from [facility]. I do see in our system, and June, August, and September patient had 3 different urine cultures with 3 different results. Multiple antib iotic allergies makes selection of appropriate antibiotics difficult this patient. Patient has a penicillin allergy but apparently was able to tolerate Zosyn. I also see nitrofurantoin on her list but patient is tolerated a full course of Macrobid per history. Based on past cultures, will start Rocephin await final culture results. Considering continued recurrence, will ask urology to evaluate for possible further work-up. (2) Liver mass: LFTs and a known liver mass. This is from the patient's previously diagnosed colon cancer. She is under the care of an oncologist at an outside facility. For now we will monitor liver function. Certainly this may play a role in her ongoing confusion and it is unclear if her hallucinations are secondary to metastasis. If patient does not have any improvement in her symptoms, can consider CT of the head. Patient is on a statin, will hold secondary to grossly abnormal liver function. (3) Weakness: Will need PT/OT. Monitor for improvement with continued treatment of her recurrent urinary tract infection. History of Present Illness Primary Care Provider: Krishna Villanueva This is an 83-year-old female with past mental history of colon cancer metastatic to the liver, frequent UTIs, hypertension, and type 2 diabetes mellitus with presents today with confusion and hallucinations. Patient is very poor historian but accompanied by her daughter who is able to give me much more information. Patient has apparently been having problems with recurrent urinary tract infections. She tells me she was admitted to [facility] approximately 3 weeks ago with similar complaints and was treated with antibiotics. She was then admitted proximally 1 week ago to the same hospital similar problems. She tells me on that occasion she was discharged with Macrobid which she finished this morning. Since this morning, she is noticed the patient has had ongoing visual hallucinations. She sees her sister who had previously . She also seems to be much more weak than previously. She did mention also she had some chest pain, although this seems to be more chest wall pain as it is very tender to any palpitation or exam. Of note, the patient has a known colon cancer that was previously treated per the daughter. And this apparently recurred with hepatic lesions. This is colitis elevated transaminases along with an elevated alk phos. I do note that the alk phos has been elevated but this seems to be the highest level. She tells me she is about to start oral treatment and follows with Dr. Candelaria at [facility]. At the time my evaluation, the patient does appear little sleepy but does answer questions appropriately. She has no cardiopulmonary distress. She is not requiring supplemental oxygen. Allergies Allergy/AdvReac Type Severity Reaction Status Date / Time Iodinated Contrast Media Allergy Intermediate IV Verified 02/02/19 10:48 CONTRAST- HIVES Bactrim Allergy Unknown patient Verified 09/21/16 05:17 unsure Cipro Allergy Unknown unknown Verified 09/21/16 05:17 ciprofloxacin Allergy Unknown unknown Verified 02/02/19 10:48 nitrofurantoin Allergy Unknown unknown Verified 02/02/19 10:48 sulfamethoxazole Allergy Unknown patient Verified 02/02/19 10:48 unsure trimethoprim Allergy Unknown patient Verified 02/02/19 10:48 unsure peanut Allergy Unknown Verified 02/02/19 10:48 acarbose AdvReac Mild GI SYMPTOMS Verified 02/02/19 10:48 azithromycin AdvReac Mild dizzy/nause Verified 02/02/19 10:48 a insulin glargine AdvReac Mild "Very ill" Verified 02/02/19 10:48 [From Lantus U-100 Insulin] - see comments metformin AdvReac Mild GI SYMPTOMS Verified 02/02/19 10:48 Penicillins AdvReac Mild dizzy, Verified 02/02/19 10:48 nausous (per patient) tolerated zosyn [id number] troglitazone AdvReac Mild GI SYMPTOMS Verified 02/02/19 10:48 Home Medications Home Medications Medication Instructions Recorded Confirmed Type ascorbic acid (vitamin C) 500 mg PO BID 06/11/18 02/02/19 History carvedilol 6.25 mg PO BIDM 06/11/18 02/02/19 History docusate sodium 100 mg PO BID 06/11/18 02/02/19 History folic acid 1 mg PO DAILY 06/11/18 02/02/19 History nitroglycerin See Rx Instructions .ROUTE .COMPLEX 06/11/18 02/02/19 History pantoprazole 40 mg PO QAM 06/11/18 02/02/19 History Fiasp FlexTouch U-100 Insulin See Rx Instructions .ROUTE .COMPLEX 08/24/18 02/02/19 History Tresiba FlexTouch U-200 26 unit SUBCUT QAM 08/24/18 02/02/19 History aspirin [Aspirin Low Dose] 81 mg PO HS 08/24/18 02/02/19 History atorvastatin 40 mg PO DAILY 08/24/18 02/02/19 History carbidopa-levodopa 2 tab PO TID 08/24/18 02/02/19 History isosorbide mononitrate 30 mg PO DAILY 08/24/18 02/02/19 History oxycodone [OxyContin] 20 mg PO Q12H #6 tab 08/29/18 02/02/19 Rx pregabalin [Lyrica] 50 mg PO BID #6 cap 08/29/18 02/02/19 Rx ferrous sulfate 325 mg PO BID 09/14/18 02/02/19 History oxycodone 5 mg PO Q4H PRN 09/14/18 02/02/19 History venlafaxine 37.5 mg PO DAILY 09/14/18 02/02/19 History prochlorperazine maleate 10 mg PO Q8H PRN 09/15/18 02/02/19 History Past Med/Surg History Medical History Atrial fibrillation (Chronic) "per old records" Chronic pain syndrome (Chronic) "arthritis + neuropathy" Coronary artery disease (Chronic) "s/p PCI ? [place]" Diabetes mellitus, type 2 (Chronic) Diabetic neuropathy (Chronic) GERD (gastroesophageal reflux disease) (Chronic) Hypertension (Chronic) Parkinson's disease (Chronic) Recurrent urinary tract infection (Chronic) Surgical History Hx of endoscopic retrograde cholangiopancreatography June 2018 Status post cardiac catheterization (Chronic) Status post cholecystectomy (Chronic) Status post coronary artery stent placement (Chronic) Family History Other Myocardial infarction Social History Preferred Language: German Communication Ability: Impaired Brick Paving Checker Required: No Beliefs That Will Affect Care: None marital status: / Current Living Situation: Other Current Living Situation Comment: Son and Daughter Feels Safe at Home: Yes Smoking Status: Never smoker Second Hand Exposure: No ; Hx Alcohol Use: Yes Hx Substance Use: No Review of Systems Review of Systems: Unobtainable due to cognitive status Review of systems as noted in HPI, otherwise on obtainable in this confused patient. Physical Exam Constitutional: no acute distress Eyes: Minimal icterus Neck: trachea midline, no thyromegaly Respiratory: normal respiratory effort Auscultation: lungs clear to auscul tation bilaterally; no crackles, no rales, no rhonchi and no wheezes Very limited exam Cardiovascular: Rate/Rhythm: regular rate and regular rhythm Heart Sounds: + murmur Obliterated S1 sound with a loud systolic murmur, S2 audible Gastrointestinal (Abdomen): Inspection/Auscultation: abdomen normal to inspection Percussion/Palpation: abdomen soft; abdomen nontender, no guarding and abdomen not rigid Skin: Moderately jaundiced Neurologic: PERRL, EOMI, accommodation nl, no face palsy, no dysarthria Results & Data Vital Signs (Past 12 Hours) Vital Signs Temp Pulse Pulse Resp BP BP Pulse Ox 02/02/19 12:36 76 18 125/60 95 02/02/19 11:16 83 18 157/73 H 97 02/02/19 10:23 73 16 181/96 H 94 02/02/19 09:45 37.0 C 68 18 145/76 H 94 Laboratory Results Patient is WBC count is at 7.1. Hemoglobin is 11.4. INR is 1. BMP is unremarkable outside of a glucose of 157. AST is 318, ALT is 103, alk phos is 1354. Bilirubin is 2.9. UA shows significant pyuria along with leuk esterases. Nitrates are also positive Diagnostic Findings XR chest 1V portable HISTORY: 83 years-old Female weakness acute weakness COMPARISON: Chest radiograph 09/14/2018 TECHNIQUE: Portable AP view of the chest FINDINGS: Cardiac silhouette is mildly enlarged. Coronary arterial stent grafts noted. No pneumothorax, pleural effusion, focal airspace consolidation or overt pulmonary edema. Degenerative changes of the shoulders and spine. IMPRESSION: Mild cardiomegaly without acute process. --- MR MRCP 09/16/2018 HISTORY: elevated white blood cell count ct + bili- r/o cbd stone/cbd dilation TECHNIQUE: MRCP the abdomen was performed without the use of contrast. COMPARISON STUDY: Abdomen and pelvis CT 08/24/2018. MRCP 06/11/2018. FINDINGS: Increase in size in the 7.2 x 4.6 cm segment 5 hepatic mass. This is suboptimally assessed on this unenhanced exam. This mass results in abrupt cut off within the proximal right intrahepatic bile ducts with mild dilatation distally. This remains unchanged. Slight nodular contour to the liver suggestive of cirrhosis. Mild periportal edema is noted. There is again noted a soft tissue component within the distended intrahepatic bile ducts surrounding the mass. The largest soft tissue component centrally measures 1.7 cm in thickness. This is also progressed in the interval. Mildly enlarged mesenteric lymph nodes are again noted. The largest lymph node measures 1.4 cm. The soft tissue component within the common bile duct has improved in the interval. There appears to small amount of soft tissue at the distal common bile duct best seen on axial image 20 of 27. The common bile duct is normal in caliber for age measuring 8 mm. The spleen and adrenal glands unremarkable. Mild urothelial thickening within the bilateral renal collecting systems persists. There are trace bilateral pleural effusions. Multiple small cystic lesions at the pancreatic head remain unchanged and likely represent side branch intraductal papillary mucinous neoplasms. Bilateral renal cysts are again noted.. IMPRESSION: 1. Increase in size in a 7.2 x 4.6 cm right hepatic lobe mass. The suspected soft tissue component within the intrahepatic bile ducts has also slightly progressed. 2. However, the soft tissue component within the common bile duct has improved with only a small amount of soft tissue remaining at the distal common bile duct. There has also been improvement in the common bile duct dilatation which is now normal in caliber for age measuring 8 mm. 3. Cirrhotic liver. 4. Mild urothelial thickening within the bilateral renal collecting systems is again noted. 5. A few mildly enlarged mesenteric lymph nodes remain unchanged. PG Care Time/CCT Total # of Minutes Spent Total Time Spent with Patient: Total time spent is greater than 50% in coord ination of care (as documented) at patient's floor/unit and/or counseling patient:
--- NOTE | 2019-02-02 14:14 | Emergency Department Note ---
Entered by Daiana Barbosa acting as a scribe for History of Present Illness General Chief complaint: Urinary Symptoms Time Seen by Provider: 02/02/19 09:35 Source: patient History of Present Illness Onset (ago): hour(s) 8 Location: chest (left-sided) Severity: similar to prior episodes Pain Consistency: + intermittent Quality: + other (tightness; heaviness) Relieved By: + medication (Nitro) Associated symptoms: + shortness of breath and + other (negative arm pain; negative jaw pain; negative abdominal pain; negative urinary symptoms; positive hallucinations); no nausea/vomiting Treatments prior to arrival: other (Nitro) The patient is a 83 year old female who presents to the Emergency Room with complaints of intermittent left-sided chest pain that began at 0200, approximately 8 hours prior to arrival. The patient describes this pain as tightness and heaviness. The patient reports shortness of breath during this time, but denies arm pain and jaw pain. She states that she took Nitro for her symptoms, and states that this resolved her symptoms. The patient states that her symptoms are similar to a prior episode of an ID. The patient denies abdominal pain, nausea, vomiting, and urinary symptoms. The patient states that she recently had a UTI and was at [facility]. She states that last night she began having hallucinations again. The patient denies thoughts of wanting to hurt herself or others. Home Medications Home Medications Medication Instructions Recorded Confirmed Type ascorbic acid (vitamin C) 500 mg PO BID 06/11/18 02/02/19 History carvedilol 6.25 mg PO BIDM 06/11/18 02/02/19 History docusate sodium 100 mg PO BID 06/11/18 02/02/19 History folic acid 1 mg PO DAILY 06/11/18 02/02/19 History nitroglycerin See Rx Instructions .ROUTE .COMPLEX 06/11/18 02/02/19 History pantoprazole 40 mg PO QAM 06/11/18 02/02/19 History Fiasp FlexTouch U-100 Insulin See Rx Instructions .ROUTE .COMPLEX 08/24/18 02/02/19 History Tresiba FlexTouch U-200 26 unit SUBCUT QAM 08/24/18 02/02/19 History aspirin [Aspirin Low Dose] 81 mg PO HS 08/24/18 02/02/19 History atorvastatin 40 mg PO DAILY 08/24/18 02/02/19 History carbidopa-levodopa 2 tab PO TID 08/24/18 02/02/19 History isosorbide mononitrate 30 mg PO DAILY 08/24/18 02/02/19 History oxycodone [OxyContin] 20 mg PO Q12H #6 tab 08/29/18 02/02/19 Rx pregabalin [Lyrica] 50 mg PO BID #6 cap 08/29/18 02/02/19 Rx ferrous sulfate 325 mg PO BID 09/14/18 02/02/19 History oxycodone 5 mg PO Q4H PRN 09/14/18 02/02/19 History venlafaxine 37.5 mg PO DAILY 09/14/18 02/02/19 History prochlorperazine maleate 10 mg PO Q8H PRN 09/15/18 02/02/19 History Allergies Allergy/AdvReac Type Severity Reaction Status Date / Time Iodinated Contrast Media Allergy Intermediate IV Verified 02/02/19 10:48 CONTRAST- HIVES Bactrim Allergy Unknown patient Verified 09/21/16 05:17 unsure Cipro Allergy Unknown unknown Verified 09/21/16 05:17 ciprofloxacin Allergy Unknown unknown Verified 02/02/19 10:48 nitrofurantoin Allergy Unknown unknown Verified 02/02/19 10:48 sulfamethoxazole Allergy Unknown patient Verified 02/02/19 10:48 unsure trimethoprim Allergy Unknown patient Verified 02/02/19 10:48 unsure peanut Allergy Unknown Verified 02/02/19 10:48 acarbose AdvReac Mild GI SYMPTOMS Verified 02/02/19 10:48 azithromycin AdvReac Mild dizzy/nause Verified 02/02/19 10:48 a insulin glargine AdvReac Mild "Very ill" Verified 02/02/19 10:48 [From Lantus U-100 Insulin] - see comments metformin AdvReac Mild GI SYMPTOMS Verified 02/02/19 10:48 Penicillins AdvReac Mild dizzy, Verified 02/02/19 10:48 nausous (per patient) tolerated zosyn [id number] troglitazone AdvReac Mild GI SYMPTOMS Verified 02/02/19 10:48 Past Med/Surg History Medical History Atrial fibrillation (Chronic) "per old records" Chronic pain syndrome (Chronic) "arthritis + neuropathy" Coronary artery disease (Chronic) "s/p PCI ? 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 and A total of 10 systems reviewed and were otherwise negative Physical Exam Vital Signs Vital Signs - 24 hr 02/02/19 09:45 02/02/19 10:23 02/02/19 11:16 Temperature 37.0 C Temperature Source Oral Pulse Rate 68 Pulse Rate [Left] 73 83 Respiratory Rate 18 16 18 Respiratory Effort / Characteristics Non-Labored Spontaneous Non-Labored Spontaneous Non-Labored Spontaneous Blood Pressure 145/76 H Blood Pressure [Right Arm] 181/96 H 157/73 H Blood Pressure Mean 99 Blood Pressure Mean [Right Arm] 124 101 Blood Pressure Position Lying Blood Pressure Position [Right Arm] Lying Lying Pulse Oximetry 94 94 97 Oxygen Delivery Method Room Air Room Air Room Air Sepsis Recent Fever Within 48 Hours No Sepsis New/Unexplained Change in Mental Status No Sepsis Action Taken by Nursing No Action Required 02/02/19 12:36 Temperature Temperature Source Pulse Rate Pulse Rate [Left] 76 Respiratory Rate 18 Respiratory Effort / Characteristics Non-Labored Spontaneous Blood Pressure Blood Pressure [Right Arm] 125/60 Blood Pressure Mean Blood Pressure Mean [Right Arm] 81 Blood Pressure Position Blood Pressure Position [Right Arm] Lying Pulse Oximetry 95 Oxygen Delivery Method Room Air Sepsis Recent Fever Within 48 Hours Sepsis New/Unexplained Change in Mental Status Sepsis Action Taken by Nursing GENERAL: Sitting up in bed, chronically ill-appearing, disheveled, non-toxic. EYE EXAM: normal conjunctiva PERRL and EOM's intact OROPHARYNX: no exudate, no erythema, lips, buccal mucosa, and tongue normal and mucous membranes are moist NECK: supple, no nuchal rigidity, no adenopathy, non-tender LUNGS: Clear to auscultation. Normal chest wall mechanics HEART: no murmurs, S1 normal and S2 normal ABDOMEN: abdomen soft, non-tender, normo-active bowel sounds, no masses, no rebound or guarding. BACK: Back is symmetrical on inspection and there is no deformity, no midline tenderness, no CVA tenderness. SKIN: no rashes and no bruising UPPER EXTREMITIES: upper extremities are grossly normal. LOWER EXTREMITIES: No pitting edema. NEURO EXAM: Normal sensorium, cranial nerves II-XII intact, normal speech, no weakness of arms, no weakness of legs. No drift. Finger to nose intact. Gross sensation intact. Course Course ED COURSE: Vital signs were reviewed and showed hypertension. The patients medical record was reviewed The above diagnostic studies were performed and reviewed. ED treatments and interventions as stated above. 0940: The patient was evaluated in room C6. A complete history and physical examination was performed. 1201: Upon reevaluation, the patient is resting comfortably. I discussed my findings with the patient and she understands and agrees with the treatment plan. Based on the patients age, coexisting illnesses, exam and lab findings the decision to treat as an inpatient was made. The patient remained stable while under my care. 1209: The patient will be evaluated for further management. I discussed the case with Dr. Dial-[facility] Hospitalist who accepts the patient for further evaluation. Administered Medications Discontinued Medications Aspirin (Aspirin) 324 mg PO NOW STA Stop: 02/02/19 10:56 Last Admin: 02/02/19 11:08 Dose: 243 mg Documented by: [id number] Sodium Chloride (Nss) 500 mls @ 999 mls/hr IV .Q31M SARAH Stop: 02/02/19 10:30 Last Infusion: 02/02/19 10:58 Dose: 0 mls/hr Documented by: [id number] Admin: 02/02/19 10:26 Dose: 999 mls/hr Documented by: [id number] Ceftriaxone Sodium (Rocephin) 1,000 mg in 50 mls @ 100 mls/hr IV NOW STA Stop: 02/02/19 12:31 Last Infusion: 02/02/19 12:57 Dose: 0 mls/hr Documented by: [id number] Admin: 02/02/19 12:24 Dose: 100 mls/hr Documented by: [id number] Nitroglycerin (Nitrostat) 0.4 mg SL NOW STA Stop: 02/02/19 12:03 Last Admin: 02/02/19 12:24 Dose: 0.4 mg Documented by: [id number] Medical Decision Making Differential Diagnosis Differential diagnoses includes but is not limited to acute coronary syndrome, myocardial infarction, pericarditis, pulmonary embolus, aortic dissection, pneumonia, pneumothorax, musculoskeletal, shingles, esophageal. Medical Records Attestation: I reviewed the patient's medical records. Home Medications Current Medication List: was personally reviewed by me Laboratory Data Attestation: I reviewed the patient's lab results. Result diagrams: 02/02/19 10:14 02/02/19 10:14 Lab Results 02/02/19 02/02/19 02/02/19 Range/Units 10:14 10:14 10:14 WBC 7.10 (4.8-10.8) K/uL RBC 3.97 L (4.2-5.4) M/uL Hgb 11.4 L (12.0-16.0) g/dL Hct 36.8 L (37-47) % MCV 92.7 (80-100) fL MCH 28.7 (25-34) pg MCHC 31.0 L (32-36) g/dL RDW Std Deviation 49.3 H (36.4-46.3) fL RDW Coeff of Cha 14.6 H (11.5-14.5) % Plt Count 138 (130-400) K/uL MPV 12.4 H (7.4-10.4) fL Immature Gran % (Auto) 0.1 % Neut % (Auto) 75.6 % Lymph % (Auto) 14.1 % [place] % (Auto) 8.6 % Eos % (Auto) 1.3 % Baso % (Auto) 0.3 % Immature Gran # (Auto) 0.01 (0.00-0.02) K/uL Neut # (Auto) 5.37 (1.4-6.5) K/uL Lymph # (Auto) 1.00 L (1.2-3.4) K/uL [place] # (Auto) 0.61 H (0.11-0.59) K/uL Eos # (Auto) 0.09 (0-0.5) K/uL Baso # (Auto) 0.02 (0-0.2) K/uL PT 10.3 (9.0-12.0) Seconds INR 1.0 (0.9-1.1) Sodium 137 (136-145) mmol/L Potassium 4.2 (3.5-5.1) mmol/L Chloride 102 (98-107) mmol/L Carbon Dioxide 29 (21-32) mmol/L Anion Gap 6.0 (3-11) BUN 16 (7-18) mg/dl Creatinine 0.91 (0.6-1.2) mg/dl Est Cr Clr Drug Dosing 49.8 ml/min Est GFR ( Amer) 66.7 Est GFR (Non-Af Amer) 57.5 BUN/Creatinine Ratio 17.3 (10-20) Glucose 157 H (70-99) mg/dl Calcium 9.6 (8.5-10.1) mg/dl Magnesium 2.0 (1.8-2.4) mg/dl Total Bilirubin 2.9 H (0.2-1) mg/dl AST 318 H (15-37) U/L ALT 103 H (12-78) U/L Alkaline Phosphatase 1354 H (45-117) U/L Troponin I < 0.015 (0-0.045) ng/ml Total Protein 7.7 (6.4-8.2) gm/dl Albumin 2.6 L (3.4-5.0) gm/dl Globulin 5.1 H (2.5-4.0) gm/dl Albumin/Globulin Ratio 0.5 L (0.9-2) TSH 1.120 (0.300-4.500) uIu/ml Urine Color Urine Appearance (Clear) Urine pH (4.5-7.5) Ur Specific [place] (1.000-1.030) Urine Protein (Negative) Urine Glucose (UA) (Negative) Urine Ketones (Negative) Urine Blood (Negative) Urine Nitrite (Negative) Urine Bilirubin (Negative) Urine Urobilinogen (Negative) Ur Leukocyte Esterase (Negative) Urine WBC (Auto) (0-5) /hpf Urine RBC (Auto) (0-4) /hpf U Hyaline Cast (Auto) (0-5) /lpf U Epithel Cells (Auto) (0-5) /lpf Urine Bacteria (Auto) (Negative) Ur Renal Epithelial Cell Urine Yeast (None Prsent) 02/02/19 Range/Units 10:45 WBC (4.8-10.8) K/uL RBC (4.2-5.4) M/uL Hgb (12.0-16.0) g/dL Hct (37-47) % MCV (80-100) fL MCH (25-34) pg MCHC (32-36) g/dL RDW Std Deviation (36.4-46.3) fL RDW Coeff of Cha (11.5-14.5) % Plt Count (130-400) K/uL MPV (7.4-10.4) fL Immature Gran % (Auto) % Neut % (Auto) % Lymph % (Auto) % [place] % (Auto) % Eos % (Auto) % Baso % (Auto) % Immature Gran # (Auto) (0.00-0.02) K/uL Neut # (Auto) (1.4-6.5) K/uL Lymph # (Auto) (1.2-3.4) K/uL [place] # (Auto) (0.11-0.59) K/uL Eos # (Auto) (0-0.5) K/uL Baso # (Auto) (0-0.2) K/uL PT (9.0-12.0) Seconds INR (0.9-1.1) Sodium (136-145) mmol/L Potassium (3.5-5.1) mmol/L Chloride (98-107) mmol/L Carbon Dioxide (21-32) mmol/L Anion Gap (3-11) BUN (7-18) mg/dl Creatinine (0.6-1.2) mg/dl Est Cr Clr Drug Dosing ml/min Est GFR ( Amer) Est GFR (Non-Af Amer) BUN/Creatinine Ratio (10-20) Glucose (70-99) mg/dl Calcium (8.5-10.1) mg/dl Magnesium (1.8-2.4) mg/dl Total Bilirubin (0.2-1) mg/dl AST (15-37) U/L ALT (12-78) U/L Alkaline Phosphatase (45-117) U/L Troponin I (0-0.045) ng/ml Total Protein (6.4-8.2) gm/dl Albumin (3.4-5.0) gm/dl Globulin (2.5-4.0) gm/dl Albumin/Globulin Ratio (0.9-2) TSH (0.300-4.500) uIu/ml Urine Color Dark Yellow Urine Appearance Clear (Clear) Urine pH 6.5 (4.5-7.5) Ur Specific [place] 1.012 (1.000-1.030) Urine Protein Negative (Negative) Urine Glucose (UA) Negative (Negative) Urine Ketones Negative (Negative) Urine Blood Negative (Negative) Urine Nitrite Positive A (Negative) Urine Bilirubin 1+ H (Negative) Urine Urobilinogen Negative (Negative) Ur Leukocyte Esterase 3+ H (Negative) Urine WBC (Auto) >30 H (0-5) /hpf Urine RBC (Auto) 0-4 (0-4) /hpf U Hyaline Cast (Auto) 1-5 (0-5) /lpf U Epithel Cells (Auto) >30 H (0-5) /lpf Urine Bacteria (Auto) 1+ H (Negative) Ur Renal Epithelial Cell Not Reportable Urine Yeast Budding A (None Prsent) Imaging Data Radiologist's Impression: Radiology results as stated below per my review and the radiologist's interpretation: XR chest 1V portable HISTORY: 83 years-old Female weakness acute weakness COMPARISON: Chest radiograph 09/14/2018 TECHNIQUE: Portable AP view of the chest FINDINGS: Cardiac silhouette is mildly enlarged. Coronary arterial stent grafts noted. No pneumothorax, pleural effusion, focal airspace consolidation or overt pulmonary edema. Degenerative changes of the shoulders and spine. IMPRESSION: Mild cardiomegaly without acute process. ACT 112: Negative or not required by law. The above report was generated using voice recognition software. It may contain grammatical, syntax or spelling errors. Electronically signed by: Marito Grimes M.D. 02/02/2019 10:05 AM ECG Data Attestation: I personally reviewed and interpreted this ECG as follows: Indication: + chest pain Rate (beats per minute): 68 Rhythm: + sinus rhythm ECG Intervals/blocks: + Right Bundle branch block ECG ST segments: + T-wave inversions (lead III and V1) Comparison ECG Date: from (09/18/18) Change: no significant change Blood Pressure Blood Pressure Findings: Elevated blood pressure Blood Pressure Disposition: further management by hospitalist TARUN Narrative Patient is an 83-year-old presents the ER for chest pain intermittently since 2 AM described as a heaviness and tightness which feels like her previous ID. She has no arm or jaw pain. She did have some shortness of breath. She also notes that she has been seeing her sister the past 24 hours. Daughter is concerned that she will have a UTI as well. Recently admitted and treated for UTI. Labs show no significant leukocytosis and a mild anemia 11.4 thousand. INR was unremarkable. BMP was unremarkable. T bili was trending up at 2.9. LFTs with mild transaminitis. Alk phos was continue to trend up. Troponin was negative. EKG was nondiagnostic. UA did suggest UTI with nitrates patient was given IV antibiotics. Was given aspirin and nitro. Patient was updated bedside and discussed with the hospitalist for observation. Impression & Plan Chest pain, Acute UTI, Hallucinations, Transaminitis, Elevated alkaline phosphatase level Discharge Plan Visit Data Chief Complaint: Urinary Symptoms ED Provider: Pineda Montiel Discharge Problem: Chest pain, Acute UTI, Hallucinations, Transaminitis, Elevated alkaline phosphatase level Patient Disposition: Being Evaluated by Hospitalist Forms Stand Alone Forms: My [facility] Prescriptions Prescriptions: No Action docusate sodium 100 mg Capsule 100 mg PO BID RF: 0 carvedilol 6.25 mg Tablet 6.25 mg PO BIDM RF: 0 ascorbic acid (vitamin C) 500 mg Tablet 500 mg PO BID RF: 0 pantoprazole 40 mg Tablet,Delayed Release (Dr/Ec) 40 mg PO QAM RF: 0 nitroglycerin 0.4 mg Tablet, Sublingual See Rx Instructions .ROUTE .COMPLEX RF: 0 folic acid 1 mg Tablet 1 mg PO DAILY RF: 0 atorvastatin 40 mg Tablet 40 mg PO DAILY RF: 0 isosorbide mononitrate 30 mg Tablet Extended Release 24 Hr 30 mg PO DAILY RF: 0 aspirin [Aspirin Low Dose] 81 mg Tablet,Delayed Release (Dr/Ec) 81 mg PO HS RF: 0 carbidopa-levodopa 25-100 mg Tablet 2 tab PO TID RF: 0 Tresiba FlexTouch U-200 200 unit/mL (3 mL) Insulin Pen 26 unit SUBCUT QAM RF: 0 Fiasp FlexTouch U-100 Insulin 100 unit/mL (3 mL) Insulin Pen See Rx Instructions .ROUTE .COMPLEX RF: 0 pregabalin [Lyrica] 50 mg Capsule 50 mg PO BID Qty: 6 RF: 0 oxycodone [OxyContin] 20 mg Tablet,Oral Only,Ext.Rel.12 Hr 20 mg PO Q12H Qty: 6 RF: 0 ferrous sulfate 325 mg (65 mg iron) Tablet 325 mg PO BID RF: 0 oxycodone 5 mg Tablet 5 mg PO Q4H PRN (Reason: Pain) RF: 0 venlafaxine 25 mg Tablet 37.5 mg PO DAILY RF: 0 prochlorperazine maleate 10 mg Tablet 10 mg PO Q8H PRN (Reason: Nausea) RF: 0 Referrals Referrals: Krishna Villanueva [Primary Care Provider] - Discharge Problem: Chest pain Qualifiers: Chest pain type: unspecified Qualified Code(s): R07.9 - Chest pain, unspecified The scribe's documentation has been prepared under my direction and personally reviewed by me in its entirety. I confirm that the note above accurately reflects all work, treatment, procedures, and medical decision making performed by me.
[2019-02-02] MEDS ORDERED: ONDANSETRON INJ 2 MG/ML 2 ML VIAL IV PRN (15:36)
[2019-02-02] MEDS ORDERED: DEXTROSE 50% 50 ML SYRINGE IV PRN (15:36)
[2019-02-02] MEDS ORDERED: CARBOHYDRATES FOR HYPOGLYCEMIA PO PRN (15:36)
[2019-02-02] MEDS ORDERED: GLUCOSE 10 TABS/TUBE PO PRN (15:36)
[2019-02-02] MEDS ORDERED: GLUCOSE 40% GEL 15 GM TUBE PO PRN (15:36)
[2019-02-02] MEDS ORDERED: PROCHLORPERAZINE MALEATE 10 MG TAB PO PRN (15:36)
[2019-02-02] MEDS ORDERED: GLUCAGON FOR INJ 1 MG VIAL SQ PRN (15:36)
[2019-02-02] MEDS ORDERED: PHARMACY GLYCEMIC MGMT CONSULT PRN (15:56)
[2019-02-02] MEDS ORDERED: INSULIN ASPART 100 UNITS/ML 3 ML PEN SC SCH (16:30)
[2019-02-02] MEDS: INSULIN ASPART SQ SCH (17:06)
[2019-02-02] MEDS: carvediloL 6.25 MG TAB PO SCH (17:09)
[2019-02-02] MEDS: FERROUS SULFATE 325 MG TAB PO SCH (20:47)
[2019-02-02] MEDS: CARBIDOPA/LEVODOPA 25/100MG TAB PO SCH (20:48)
[2019-02-02] MEDS: DOCUSATE SODIUM 100 MG CAP PO SCH (20:48)
[2019-02-02] MEDS: HEPARIN SOD 5,000 UNIT/0.5 ML VIAL SQ SCH (20:49)
[2019-02-02] MEDS: ASPIRIN 81 MG ECTAB PO SCH (20:49)
[2019-02-02] MEDS: ASCORBIC ACID 500 MG TAB PO SCH (20:50)
[2019-02-02] MEDS: PREGABALIN 50 MG CAP PO SCH (20:55)
[2019-02-02] MEDS: OXYCODONE HCL 20 MG TABCR (OXYCONTIN) PO SCH (20:55)
[2019-02-03 06:06] LABS: Eosinophils # (auto) 0.07 K/uL (0-0.5); Eosinophils % (auto) 1.4 %; Hematocrit (blood only) 37.4 % (37-47); Hemoglobin 11.6 g/dL (12.0-16.0); Immature Granulocytes # (auto) 0.01 K/uL (0.00-0.02); Immature Granulocytes % (auto) 0.2 %; Lymphocytes # (auto) 0.83 K/uL (1.2-3.4); Lymphocytes % (auto) 16.8 %; Mean Corpuscular Volume 90.3 fL (80-100); Mean Platelet Volume 12.8 fL (7.4-10.4); Monocytes # (auto) 0.45 K/uL (0.11-0.59); Monocytes % (auto) 9.1 %; Neutrophils # (auto) 3.59 K/uL (1.4-6.5); Neutrophils % (auto) 72.5 %; Platelet Count 144 K/uL (130-400); RDW Coefficient of Variation 14.6 % (11.5-14.5); RDW Standard Deviation 47.9 fL (36.4-46.3); Red Blood Count 4.14 M/uL (4.2-5.4); White Blood Count 4.95 K/uL (4.8-10.8)
[2019-02-03 06:14] LABS: Estimated Average Glucose 180 mg/dl; Hemoglobin A1C 7.9 % (4.5-5.6)
[2019-02-03 06:26] LABS: Albumin Level 2.5 gm/dl (3.4-5.0); BUN Creatinine Ratio 17.2 (10-20); Calcium 9.4 mg/dl (8.5-10.1); Est GFR (African American) 57.4; Est GFR (Non-African American) 49.5; Potassium 4.1 mmol/L (3.5-5.1)
[2019-02-03] MEDS: FERROUS SULFATE 325 MG TAB PO SCH ×2 (06:36→19:56)
[2019-02-03 06:41] LABS: Albumin Globulin Ratio 0.5 (0.9-2); Bilirubin,Total 3.3 mg/dl (0.2-1); Globulin 4.8 gm/dl (2.5-4.0); Total Protein 7.3 gm/dl (6.4-8.2)
[2019-02-03] MEDS ORDERED: NITROGLYCERIN SL 0.4 MG/TAB TAB SL PRN (08:59)
[2019-02-03] MEDS ORDERED: INSULIN DEGLUDEC 26 UNIT SQ SCH (09:00)
[2019-02-03] MEDS ORDERED: NITROGLYCERIN SL 0.4 MG/TAB TAB ONE (09:01)
[2019-02-03] MEDS: DOCUSATE SODIUM 100 MG CAP PO SCH ×2 (09:04→20:56)
[2019-02-03] MEDS: ASCORBIC ACID 500 MG TAB PO SCH ×2 (09:04→20:55)
[2019-02-03] MEDS: carvediloL 6.25 MG TAB PO SCH ×2 (09:04→17:24)
[2019-02-03] MEDS: VENLAFAXINE HCL 37.5 MG TAB PO SCH (09:04)
[2019-02-03] MEDS: FOLIC ACID 1 MG TAB PO SCH (09:04)
[2019-02-03] MEDS: PANTOprazole 40 MG TAB PO SCH (09:04)
[2019-02-03] MEDS: CARBIDOPA/LEVODOPA 25/100MG TAB PO SCH ×3 (09:04→20:54)
[2019-02-03] MEDS: ISOSORBIDE MONO EXTENDED REL 30 MG TABCR PO SCH (09:04)
[2019-02-03] MEDS: INSULIN ASPART SQ SCH ×3 (09:05→17:24)
[2019-02-03] MEDS: INSULIN DEGLUDEC 200 UNITS/ML PEN SQ SCH (09:07)
[2019-02-03] MEDS: HEPARIN SOD 5,000 UNIT/0.5 ML VIAL SQ SCH ×2 (09:08→20:56)
[2019-02-03] MEDS: OXYCODONE HCL 20 MG TABCR (OXYCONTIN) PO SCH ×2 (09:10→21:22)
[2019-02-03] MEDS: PREGABALIN 50 MG CAP PO SCH ×2 (09:10→21:22)
--- NOTE | 2019-02-03 10:05 | Hospitalist Progress Note ---
Date of Service February 03, 2019 Assessment & Plan (1) Acute UTI: Patient with acute, recurrent UTI. May need to obtain a urine culture results from JONELLE Winslow. I do see in our system, and June, August, and September patient had 3 different urine cultures with 3 different results. Multiple antib iotic allergies makes selection of appropriate antibiotics difficult this patient. Patient has a penicillin allergy but apparently was able to tolerate Zosyn. I also see nitrofurantoin on her list but patient is tolerated a full course of Macrobid per history. Based on past cultures, will start Rocephin await final culture results. Considering continued recurrence, will ask urology to evaluate for possible further work-up. 02/03 -no real improvement and mental status, will order CT of the brain without contrast. Continue Rocephin for now. Despite mental status change, patient has been afebrile with normal white count. Urine cultures from last night are still pending and no results are available yet. (2) Liver mass: LFTs and a known liver mass. This is from the patient's previously diagnosed colon cancer. She is under the care of an oncologist at an outside facility. For now we will monitor liver function. Certainly this may play a r ole in her ongoing confusion and it is unclear if her hallucinations are secondary to metastasis. If patient does not have any improvement in her symptoms, can consider CT of the head. Patient is on a statin, will hold secondary to grossly abnormal liver function. 02/03-LFTs are slightly improved from yesterday but she still has a significant elevated alk phos. She does have a known liver mass. Check ammonia level this morning. (3) Weakness: Will need PT/OT. Monitor for improvement with continued treatment of her recurrent urinary tract infection. (4) Hypertension: Continue isosorbide and Coreg for elevated blood pressure. Initial blood pressure this morning is 1 3465 but went up to 175/83. Will recheck after blood pressure medications administered. Consider adding amlodipine 5 mg daily. Subjective Patient is asleep and will not open her eyes or speak to me. Nursing did report that she was awake earlier requesting nitroglycerin for chest discomfort. I do note that her blood pressure was elevated this morning. She is due for Coreg 6.25 mg which has not yet been administered. Patient would not engage with me or provide any further information. Physical Exam Constitutional: no acute distress and + uncooperative Neck: trachea midline, no thyromegaly Respiratory: normal respiratory effort Auscultation: lungs clear to auscultation bilaterally; no crackles, no rales, no rhonchi and no wheezes Cardiovascular: Rate/Rhythm: regular rate and regular rhythm Heart Sounds: + murmur Gastrointestinal (Abdomen): Inspection/Auscultation: abdomen normal to inspection Percussion/Palpation: abdomen soft; abdomen nontender, no guarding and abdomen not rigid Neurologic: PERRL, EOMI, accommodation nl, no face palsy, no dysarthria Results & Data Vital Signs (Past 12 Hours) Vital Signs Temp Pulse Pulse Resp BP BP Pulse Ox 02/03/19 08:51 72 18 175/83 H 96 02/03/19 07:43 76 02/03/19 07:00 36.4 C L 75 16 134/65 91 02/03/19 04:22 36.7 C 70 18 116/77 94 02/02/19 23:05 37 C 80 16 128/75 94 PG Care Time/CCT Total # of Minutes Spent Total Time Spent with Patient: Total time spent is greater than 50% in coordination of care (as documented) at patient's floor/unit and/or counseling patient:
[2019-02-03] MEDS ORDERED: HydrALAZINE HCL 20 MG/ML VIAL IV STA (11:08)
[2019-02-03] MEDS ORDERED: cefTRIAXone SODIUM 2,000 MG in DEXTROSE 5% 50 ML/50 ML BAG IV SCH (12:00)
--- NOTE | 2019-02-03 12:12 | CT Scan Report ---
HEAD CT NONCONTRAST CT DOSE: 614.27 mGy.cm HISTORY: confusion, hx of colon CA TECHNIQUE: Multiaxial CT images of the head were performed without the use of intravenous contrast. A utomated exposure control was utilized for this study. A dose lowering technique was utilized adheri ng to the principles of ALARA. Comparison: Head CT 08/27/2018. Findings: The paranasal sinuses and mastoid air cells are clear. The calvarium and skull base are int act. There is no mass, hematoma, midline shift, acute infarct. White matter hypodensity is nonspecifi c but suggestive of microvascular ischemic change. The ventricles and sulci demonstrate mild age-rela dayanna involutional changes. Impression: No significant change compared to the prior study. No acute intracranial abnormality. ACT 112: Negative or not required by law. Electronically signed by: Carmine Desouza M.D. 02/03/2019 12:11 PM
[2019-02-03] MEDS: ASPIRIN 81 MG ECTAB PO SCH (20:54)
[2019-02-04] MEDS: FERROUS SULFATE 325 MG TAB PO SCH ×2 (06:37→20:08)
[2019-02-04 06:47] LABS: Hemoglobin 11.5 g/dL (12.0-16.0); White Blood Count 8.65 K/uL (4.8-10.8)
[2019-02-04 06:48] LABS: Basophils # (auto) 0.01 K/uL (0-0.2); Basophils % (auto) 0.1 %; Eosinophils # (auto) 0.02 K/uL (0-0.5); Eosinophils % (auto) 0.2 %; Hematocrit (blood only) 36.1 % (37-47); Immature Granulocytes # (auto) 0.01 K/uL (0.00-0.02); Immature Granulocytes % (auto) 0.1 %; Lymphocytes # (auto) 0.95 K/uL (1.2-3.4); Mean Corpuscular Hemoglobin 28.8 pg (25-34); Mean Corpuscular Hgb Conc 31.9 g/dL (32-36); Mean Corpuscular Volume 90.3 fL (80-100); Monocytes # (auto) 0.57 K/uL (0.11-0.59); Monocytes % (auto) 6.6 %; Neutrophils # (auto) 7.09 K/uL (1.4-6.5); Platelet Count 136 K/uL (130-400); RDW Coefficient of Variation 14.9 % (11.5-14.5); RDW Standard Deviation 49.3 fL (36.4-46.3)
[2019-02-04 07:26] LABS: BUN Creatinine Ratio 24.6 (10-20); Calcium 9.5 mg/dl (8.5-10.1); Creatinine Clr Calc Pharmacy 37.9 ml/min; Est GFR (African American) 49.7; Est GFR (Non-African American) 42.9; Potassium 4.1 mmol/L (3.5-5.1)
[2019-02-04] MEDS: PREGABALIN 50 MG CAP PO SCH ×2 (07:53→20:17)
[2019-02-04] MEDS: OXYCODONE HCL 20 MG TABCR (OXYCONTIN) PO SCH ×2 (07:53→20:17)
[2019-02-04] MEDS: DOCUSATE SODIUM 100 MG CAP PO SCH ×2 (07:54→20:09)
[2019-02-04] MEDS: AMLODIPINE BESYLATE 5 MG TAB PO SCH (07:54)
[2019-02-04] MEDS: ASCORBIC ACID 500 MG TAB PO SCH ×2 (07:55→20:11)
[2019-02-04] MEDS: ISOSORBIDE MONO EXTENDED REL 30 MG TABCR PO SCH (07:55)
[2019-02-04] MEDS: FOLIC ACID 1 MG TAB PO SCH (07:55)
[2019-02-04] MEDS: VENLAFAXINE HCL 37.5 MG TAB PO SCH (07:55)
[2019-02-04] MEDS: carvediloL 6.25 MG TAB PO SCH ×2 (07:55→17:00)
[2019-02-04] MEDS: INSULIN ASPART SQ SCH ×3 (07:56→17:00)
[2019-02-04] MEDS: CARBIDOPA/LEVODOPA 25/100MG TAB PO SCH ×3 (07:56→20:10)
[2019-02-04] MEDS: PANTOprazole 40 MG TAB PO SCH (07:56)
[2019-02-04] MEDS: HEPARIN SOD 5,000 UNIT/0.5 ML VIAL SQ SCH ×2 (07:56→20:12)
[2019-02-04] MEDS: INSULIN DEGLUDEC 200 UNITS/ML PEN SQ SCH (07:57)
[2019-02-04 10:42] LABS: Albumin Level 2.6 gm/dl (3.4-5.0); Bilirubin Direct 3.8 mg/dl (0-0.2); Bilirubin,Total 4.3 mg/dl (0.2-1); Total Protein 7.6 gm/dl (6.4-8.2)
[2019-02-04 11:10] LABS: D Dimer 8460 ug/L FEU (0-500)
[2019-02-04] MEDS ORDERED: SODIUM CHLORIDE 0.9% 1000ML 1,000 ML IV SCH (11:45)
--- NOTE | 2019-02-04 12:42 | CT Scan Report ---
CT chest wo con CT DOSE: 1381.43 mGy.cm HISTORY: Dyspnea dyspnea, cancer TECHNIQUE: Multiaxial CT images of the chest were performed without contrast. A dose lowering techni que was utilized adhering to the principles of ALARA. COMPARISON: None. FINDINGS: The lungs are primarily clear. There are findings of mild dependent bibasilar atelectatic c hange. There are several small scattered calcified granulomas. Calcification of the coronary arterial vasculature. There is atherosclerotic change and ectasia of the thoracic aorta. 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 No significant mediastinal or hilar adenopathy. IMPRESSION: 1. No acute process of the chest. 2. Lungs are considered clear. 3. Minimal dependent bibasilar atelectasis. ACT 112: Negative or not required by law. The above report was generated using voice recognition software. It may contain grammatical, syntax or spelling errors. Electronically signed by: Alex Coughlin M.D. 02/04/2019 12:40 PM
--- NOTE | 2019-02-04 12:50 | CT Scan Report ---
CT SCAN OF THE ABDOMEN AND PELVIS WITHOUT IV CONTRAST CLINICAL HISTORY: Liver mass. Generalized abdominal pain. COMPARISON STUDY: Abdominal CT dated 08/24/2018. MRCP dated 09/16/2018. TECHNIQUE: CT scan of the abdomen and pelvis is performed from the lung bases to the proximal femora. Images are reviewed in the axial, sagittal, and coronal planes. IV contrast was not administered for this examination as per the referring clinician. Note that the examination was performed in signific ant suboptimal fashion without oral and IV contrast. A dose lowering technique was utilized adhering to the principles of ALARA. FINDINGS: Lung bases: The heart is mildly enlarged and without pericardial effusion. The coronary arteries and mitral annulus are densely calcified. There is a tiny hiatal hernia. There are trace pleural effusion s. Scarring/atelectasis is noted at both lung bases. No airspace consolidation is seen typical for pn eumonia. Scattered calcified granulomas are observed. Liver: The unenhanced liver is cirrhotic in morphology and heterogeneous in attenuation. There is nod ularity of the hepatic surface contour. There is mild to moderate intrahepatic biliary ductal dilatat ion. There is hyperdense thrombus identified throughout the main portal veins, as well as in the supe rior mesenteric vein. A 4.8 cm exophytic mass lesion arises from the left lobe of liver on image #[id number] . Gallbladder: Surgically absent noting clips in the gallbladder fossa. Spleen: Normal in size and attenuation. 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 Pancreas: The unenhanced pancreas is atrophic and grossly unremarkable. Adrenal glands: Unremarkable. Kidneys: The unenhanced kidneys are atrophic. There is moderate right and mild left hydroureteronephr osis. There are no renal calculi identified. There is no evidence of contour deforming renal mass les ion. Urothelial thickening is again suggested within the renal collecting system bilaterally. Abdominal vasculature: The abdominal aorta is normal in course and caliber noting advanced atheroscle rotic calcification. Bowel: There is rectosigmoid fecal retention and moderate constipation. There is postoperative change from sigmoid colon resection with colocolonic anastomosis. No bowel obstruction is seen. There is mi ld diverticulosis of the remaining colon without CT evidence of acute diverticulitis. The appendix is partially imaged and likely normal. Peritoneum: There is no intraperitoneal free air or abdominal ascites. There is a large fat-containin g umbilical hernia. Lymphadenopathy: None. Pelvic viscera: The bladder, uterus, and adnexa are normal as visualized. Skeletal structures: The skeletal structures are osteopenic. There is moderate to advanced lumbosacra l spondylosis. 1No lytic or blastic lesions are seen. IMPRESSION: 1. Suboptimal examination without oral and IV contrast. 2. Hyperdense thrombus fills the main portal vein, the intrahepatic portal veins, and the superior me senteric vein. 3. Cirrhotic liver morphology and a large exophytic hepatic mass are again noted. Given the cirrhotic liver morphology the appearance is highly concerning for a hepatocellular carcinoma. Other neoplasms are not excluded. 4. Mild/moderate intrahepatic biliary ductal dilatation is similar to previous. 5. There is moderate right and mild left hydroureteronephrosis. 6. Cardiomegaly and trace pleural effusions. 7. Additional findings as above. ACT 112: Positive. There are findings on this exam that require communication between the performing entity and the patient following Patient Test Result Information Act ([place] Act 112) guidelines. Electronically signed by: Mario Thomas M.D. 02/04/2019 12:49 PM
--- NOTE | 2019-02-04 13:01 | Ultrasound Report ---
US venous doppler LE BI HISTORY: Pain. Edema. edema, cancer, dyspnea; eval DVT COMPARISON STUDY: None. FINDINGS: There is normal compressibility, flow, and augmentation within the bilateral lower extremit y deep venous systems. IMPRESSION: No DVT within the right or left lower extremity. ACT 112: Negative or not required by law. The above report was generated using voice recognition software. It may contain grammatical, syntax or spelling errors. Electronically signed by: Alex Coughlin M.D. 02/04/2019 1:00 PM
[2019-02-04] MEDS: LEVOFLOXACIN/D5W 250 MG/50 ML BAG IV SCH (13:11)
[2019-02-04] MEDS: LACTOBACILLUS ACIDOPHILUS (FLORANEX) TAB PO SCH ×2 (13:12→17:01)
[2019-02-04] MEDS ORDERED: bisacodyL 10 MG SUPP PR STA (13:43)
--- NOTE | 2019-02-04 15:15 | Gastrointestinal Consultation ---
Date of Consultation February 04, 2019 Assessment & Plan (1) Liver mass: Liver mass is suggestive of metastasis vs. HCC. Would need to review pathology from [facility] to further classify. Would defer management to [facility] as an OP. Present on Admission?: Yes (2) Elevated LFTs: Most likely caused by tumor burden, however, ductal obstruction by bleeding from the tumor is possible as imaging showed extension of the mass to the intrahepatic ducts. No current signs of cholangitis. Recommend MRCP. If positive for ductal obstruction then could arrange ERCP later this week. 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 Doubt that anticoagulation would improve clinical outcome. She is high risk for bleeding from the tumor as she has had prior hemobilia. Would defer to hem/onc. Present on Admission?: Yes Supervising Physician Co-Signing Physician Notes I performed a history and physical examination of the patient, including specifically on physical exam - soft, nontender abdomen. I have discussed the patient's management with Um[facility]. Please refer to the nurse practitioner's note for the documented findings and plan of care. 83 yrs old female patient with advanced stage malignancy ? HCC s/p TACE in the past and underlying Liver cirrhosis, had Hx of Hemobilia noted during ERCP in the past, currently admitted for UTI, LFTs are unchanged since few months ago a nd consistent with Cirrhosis and malignancy in the liver. No signs of cholangitis. Recommend: MRCP, if negative for ductal obstruction then no indication for ERCP. Would defer decision about anticoagulation of her PVT to her Oncologist at [facility] as she is high risk in view of prior Hx of hemobilia and this could be a tumor thrombus anyway. Consider evaluation by Palliative team. History of Present Illness Reason for Consultation: liver mass, PVT, abnormal LFTs Requesting Physician: Dr. Lei Attending Physician: Jason Hendricks History of Present Illness Ms. Katya Acevedo is an 83 yr old female pt of Dr. Villanueva with a hx of hx of HTN, DM-2, Parkinson's, depression, recurrent UTIs, cirrhosis with liver mass likely HCC which is managed by [facility] with prior TACE. She was admitted yesterday for UTI. GI is consulted to consider ERCP. She underwent ERCP in June 2018 with findings of hemobilia. During ERCP for stent removal in August, she had choledocholithiasis and swept the duct of stones and debris. On arrival LFTs are elevated: T Bili 4.3, AST 318->169, ALT 103->33, Alk Phos 1352. These values are similar to those seen during prior admission except that the ALk Phos is increasing as prior max in September was 991. On arrival, CT with portal vein and SMV thrombus as well as 4.8cm liver mass. The pt is seen and examined while she is sitting up in a chair. She tells us that she is free of pain, though had some earlier today. Allergies Allergy/AdvReac Type Severity Reaction Status Date / Time Iodinated Contrast Media Allergy Intermediate IV Verified 02/02/19 10:48 CONTRAST- HIVES Bactrim Allergy Unknown patient Verified 09/21/16 05:17 unsure Cipro Allergy Unknown unknown Verified 09/21/16 05:17 ciprofloxacin Allergy Unknown unknown Verified 02/02/19 10:48 nitrofurantoin Allergy Unknown unknown Verified 02/02/19 10:48 sulfamethoxazole Allergy Unknown patient Verified 02/02/19 10:48 unsure trimethoprim Allergy Unknown patient Verified 02/02/19 10:48 unsure acarbose AdvReac Mild GI SYMPTOMS Verified 02/02/19 10:48 azithromycin AdvReac Mild dizzy/nause Verified 02/02/19 10:48 a insulin glargine AdvReac Mild "Very ill" Verified 02/02/19 10:48 [From Lantus U-100 Insulin] - see comments metformin AdvReac Mild GI SYMPTOMS Verified 02/02/19 10:48 Penicillins AdvReac Mild dizzy, Verified 02/02/19 10:48 nausous (per patient) tolerated zosyn [id number] troglitazone AdvReac Mild GI SYMPTOMS Verified 02/02/19 10:48 Home Medications Home Medications Medication Instructions Recorded Confirmed Type ascorbic acid (vitamin C) 500 mg PO BID 06/11/18 02/02/19 History carvedilol 6.25 mg PO BIDM 06/11/18 02/02/19 History docusate sodium 100 mg PO BID 06/11/18 02/02/19 History folic acid 1 mg PO DAILY 06/11/18 02/02/19 History nitroglycerin See Rx Instructions .ROUTE .COMPLEX 06/11/18 02/02/19 History pantoprazole 40 mg PO QAM 06/11/18 02/02/19 History Fiasp FlexTouch U-100 Insulin See Rx Instructions .ROUTE .COMPLEX 08/24/18 02/02/19 History Tresiba FlexTouch U-200 26 unit SUBCUT QAM 08/24/18 02/02/19 History aspirin [Aspirin Low Dose] 81 mg PO HS 08/24/18 02/02/19 History atorvastatin 40 mg PO DAILY 08/24/18 02/02/19 History carbidopa-levodopa 2 tab PO TID 08/24/18 02/02/19 History isosorbide mononitrate 30 mg PO DAILY 08/24/18 02/02/19 History oxycodone [OxyContin] 20 mg PO Q12H #6 tab 08/29/18 02/02/19 Rx pregabalin [Lyrica] 50 mg PO BID #6 cap 08/29/18 02/02/19 Rx ferrous sulfate 325 mg PO BID 09/14/18 02/02/19 History oxycodone 5 mg PO Q4H PRN 09/14/18 02/02/19 History venlafaxine 37.5 mg PO DAILY 09/14/18 02/02/19 History prochlorperazine maleate 10 mg PO Q8H PRN 09/15/18 02/02/19 History Patient History Medical History Atrial fibrillation (Chronic) "per old records" Chronic pain syndrome (Chronic) "arthritis + neuropathy" Coronary artery disease (Chronic) "s/p PCI ? 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 Required: No Beliefs That Will Affect Care: None marital status: / Current Living Situation: Family Current Living Situation Comment: Son and Daughter Other Information That Helps Us Care for You: No Feels Safe at Home: No Is there a partner from a previous relationship who is making you feel unsafe now?: No Any Concerns about Your Family Situation: Yes Would You Like to Speak to Someone About Your Situation: No Smoking Status: Never smoker Do You Dip or Chew Tobacco: No ; Second Hand Exposure: No ; Tobacco Cessation Education Requested by Patient: No Hx Alcohol Use: No Hx Substance Use: No Review of Systems Review of Systems: ROS: Gen: + weakness, no fevers Eyes: No eye redness, or pain, no recent vision changes Resp: No SOB, no cough Cardio: No palpitations/irregular beats, no chest pain GI: See HPI; + nausea, no vomiting : Denies pain on urination Skin: No jaundice, itching or new rashes Physical Exam Constitutional: WD/WN, vitals as above + ill appearing and + obese Eyes: PERRL, conjunctivae normal, anicteric sclerae ENMT: external ear and nose normal, oropharynx normal Neck: trachea midline, no thyromegaly Skin: no rashes, warm and dry mild jaundice Neurologic: PERRL, EOMI, accommodation nl, no face palsy, no dysarthria Psychiatric: A+Ox3, euthymic affect Results & Data Vital Signs (Past 12 Hours) Vital Signs Temp Pulse Pulse Resp BP Pulse Ox 02/04/19 11:11 36.6 C 71 18 118/62 94 02/04/19 08:38 73 151/84 H 02/04/19 08:00 72 02/04/19 07:52 36.3 C L 75 18 162/84 H 95 02/04/19 04:03 36.7 C 83 20 122/90 94 Diagnostic Findings Doppler US: 1. Suboptimal examination without oral and IV contrast. 2. Hyperdense thrombus fills the main portal vein, the intrahepatic portal veins, and the superior mesenteric vein. 3. Cirrhotic liver morphology and a large exophytic hepatic mass are again noted. Given the cirrhotic liver morphology the appearance is highly concerning for a hepatocellular carcinoma. Other neoplasms are not excluded. 4. Mild/moderate intrahepatic biliary ductal dilatation is similar to previous. 5. There is moderate right and mild left hydroureteronephrosis. 6. Cardiomegaly and trace pleural effusions. 7. Additional findings as above.
[2019-02-04] MEDS ORDERED: bisacodyL 10 MG SUPP PR ONE (16:56)
[2019-02-04] MEDS: SENNA 8.6 MG TAB PO SCH (16:59)
[2019-02-04] MEDS: OXYCODONE HCL IR 5 MG TAB (IMMEDIATE RELEASE) PO PRN (16:59)
[2019-02-04] MEDS ORDERED: INSULIN ASPART SQ SCH (18:26)
--- NOTE | 2019-02-04 18:33 | Hospitalist Progress Note ---
Date of Service February 04, 2019 Assessment & Plan (1) Acute UTI: Pt recently hospitalized at [facility] in [place] for UTI. I called the micro lab there today; culture from that hospital stay (which was prior to [place]) grew enterococcus. Culture here grew pseudomonas sensitive to quinolones. ?allergy to cipro but unknown reaction, if any. d/c rocephin. directly observed therapy with IV levaquin for the pseudomonas - first dose now. CT abd/pelvis today with b/l hydroureter and hydronephrosis -- chronic urinary reflux? role for stenting? will consider consult with urology. (2) Chest pain: Numerous episodes of such on past hospital stays without cardiac source. EKG with RBBB only; no ST changes. Trop negative. d-dimer markedly elevated. high risk of VTE due to cancer. checked dopplers of legs today - negative; this does not rule out PE, however. Will repeat a troponin later today. Suspect chest pain is referred pain from RUQ of abdomen. CT abd/pelvis with PVT and mesenteric vein thrombosis - ideally needs anticoag ulation but will need to clear this with [facility] Heme/onc. If started on anticoagulation would not pursue additional w/u for PEs. (3) Portal vein thrombosis: seen on CT abd/pelvis. ideally needs anticoagulation. will need to speak with [facility] Heme/onc about risks vs benefits of such prior to initiating. (4) Liver mass: s/p TACE at [facility] in the past. uncertain if this mass is a large metastatin lesion from prior colon cancer OR a primary HCC. either way it appears to be causing bile duct compression leading to her markedly elevated LFTs. she is a very poor candidate for any Rx of the liver mass. CT chest / abd / pelvis obtained today to rule out advancing metastatic disease in other locations for prognostic purposes. Only disease was that of the liver mass. treat pain with pain meds. some of her pain could be from the PVT as well. (5) Elevated LFTs: WORSE since 09/2018. I spoke with Bashir BECKWITH who consulted. Plan for MCRP. If any signs of CBD obstruction on MRCP then will proceed with ERCP. Had CBD stent up until 08/2018 at which point it was extracted during that August hospitalization. also with prior h/o hemobilia. (6) Metabolic encephalopathy: likely 2nd to acute UTI. ammonia wnl. CT head without mets. Improved overall today. (7) Parkinson disease: cont sinemet (8) Hemobilia: history of such early 2018 requiring transfer to [facility] (9) Cirrhosis: due to VALE? no decompensation today ammonia wnl (10) Diabetes mellitus, type 2: adjust novolog to correction factor of 45 and carb ratio of 1:15 leave basal insulin as is (11) Coronary artery disease: despite reported h/o CAD no evidence of ACS despite her c/o chest discomfort cont amlodipine, asa, coreg, imdur repeat the troponin later this evening (12) Chronic kidney disease, stage 3a: creatinine at baseline repeat level am (13) Chronic pain syndrome: cont chronic narcotics with bowel regimen gave dulcolax suppos x 1 today (impaction seen on CT) (14) Hypertension: cont home meds (15) DVT prophylaxis: heparin 5000 BID daughter updated at bedside PT and OT evals Subjective pt lying in bed during my visit. reports weakness/fatigue, lack of appetite, just feeling washed out. present for 3-4 weeks if not longer. daughter at bedside -- confirms her mom has been in the bed at home frequently; if not in bed then in the chair; little walking. pt also losing weight. had episode of chest discomfort this am; first started in upper abdomen, then traveled to the lower chest. no substernal pain. relieved with SL nitro. has had this pain at home in recent past. takes SL nitro for it at home as well. has associated dyspnea. no nausea. also c/o RUQ pain. constant. radiates into lower chest. cannot tell me the last time she saw her GI physician, Dr Candelaria, in [facility]. has not been to [facility] in some time either. Review of Systems Constitutional: + fatigue; no fever and no chills Respiratory: no cough Cardiovascular: as per Subjective / HPI and + chest pain; no orthopnea and no paroxysmal nocturnal dyspnea Gastrointestinal: + abdominal pain; no nausea and no vomiting Physical Exam Constitutional: + ill appearing and + frail appearing Eyes: + scleral abnormality (icterus) ENMT: external ear and nose normal, oropharynx normal Respiratory: normal respiratory effort, lungs clear to auscultation Cardiovascular: Rate/Rhythm: regular rate and regular rhythm Heart Sounds: normal S1 and normal S2; no murmur Vessels: posterior tibial pulses present and dorsalis pedis pulses present; no JVD Extremities: no edema Gastrointestinal (Abdomen): Inspection/Auscultation: normal bowel sounds Percussion/Palpation: + abdomen tender (RUQ) and + hepatomegaly (and irregular in shape ); + abdomen not soft and no ascites Skin: + jaundice (mild- face only ) Psychiatric: Orientation: alert Results & Data Vital Signs (Past 12 Hours) Vital Signs Temp Pulse Pulse Pulse Resp BP BP 02/04/19 16:46 70 02/04/19 16:00 36.6 C 75 18 125/73 02/04/19 11:11 36.6 C 71 18 118/62 02/04/19 08:38 73 151/84 H 02/04/19 08:00 72 02/04/19 07:52 36.3 C L 75 18 162/84 H Pulse Ox 02/04/19 16:46 02/04/19 16:00 93 02/04/19 11:11 94 02/04/19 08:38 02/04/19 08:00 02/04/19 07:52 95 Laboratory Results Laboratory Results - last 24 hr 02/03/19 02/03/19 02/04/19 16:37 20:25 06:36 WBC 8.65 RBC 4.00 L Hgb 11.5 L Hct 36.1 L MCV 90.3 MCH 28.8 MCHC 31.9 L RDW Std Deviation 49.3 H RDW Coeff of Cha 14.9 H Plt Count 136 MPV 12.0 H Immature Gran % (Auto) 0.1 Neut % (Auto) 82.0 Lymph % (Auto) 11.0 Sharp % (Auto) 6.6 Eos % (Auto) 0.2 Baso % (Auto) 0.1 Immature Gran # (Auto) 0.01 Neut # (Auto) 7.09 H Lymph # (Auto) 0.95 L Sharp # (Auto) 0.57 Eos # (Auto) 0.02 Baso # (Auto) 0.01 D-Dimer Sodium Potassium Chloride Carbon Dioxide Anion Gap BUN Creatinine Est Cr Clr Drug Dosing Est GFR ( Amer) Est GFR (Non-Af Amer) BUN/Creatinine Ratio Glucose POC Glucose 140 H 162 H Calcium Total Bilirubin Direct Bilirubin AST ALT Alkaline Phosphatase Troponin I Total Protein Albumin 02/04/19 02/04/19 02/04/19 06:36 07:40 09:27 WBC RBC Hgb Hct MCV MCH MCHC RDW Std Deviation RDW Coeff of Cha Plt Count MPV Immature Gran % (Auto) Neut % (Auto) Lymph % (Auto) Sharp % (Auto) Eos % (Auto) Baso % (Auto) Immature Gran # (Auto) Neut # (Auto) Lymph # (Auto) Sharp # (Auto) Eos # (Auto) Baso # (Auto) D-Dimer Sodium 137 Potassium 4.1 Chloride 103 Carbon Dioxide 27 Anion Gap 7.0 BUN 29 H D Creatinine 1.16 Est Cr Clr Drug Dosing 37.9 Est GFR ( Amer) 49.7 Est GFR (Non-Af Amer) 42.9 BUN/Creatinine Ratio 24.6 H Glucose 121 H POC Glucose 115 H Calcium 9.5 Total Bilirubin 4.3 H Direct Bilirubin 3.8 H AST 169 H ALT 33 Alkaline Phosphatase 1246 H Troponin I Total Protein 7.6 Albumin 2.6 L 02/04/19 02/04/19 02/04/19 10:09 10:09 12:07 WBC RBC Hgb Hct MCV MCH MCHC RDW Std Deviation RDW Coeff of Cha Plt Count MPV Immature Gran % (Auto) Neut % (Auto) Lymph % (Auto) Sharp % (Auto) Eos % (Auto) Baso % (Auto) Immature Gran # (Auto) Neut # (Auto) Lymph # (Auto) Sharp # (Auto) Eos # (Auto) Baso # (Auto) D-Dimer 8460 H* Sodium Potassium Chloride Carbon Dioxide Anion Gap BUN Creatinine Est Cr Clr Drug Dosing Est GFR ( Amer) Est GFR (Non-Af Amer) BUN/Creatinine Ratio Glucose POC Glucose 217 H Calcium Total Bilirubin Direct Bilirubin AST ALT Alkaline Phosphatase Troponin I < 0.015 Total Protein Albumin 02/04/19 16:30 WBC RBC Hgb Hct MCV MCH MCHC RDW Std Deviation RDW Coeff of Cha Plt Count MPV Immature Gran % (Auto) Neut % (Auto) Lymph % (Auto) Sharp % (Auto) Eos % (Auto) Baso % (Auto) Immature Gran # (Auto) Neut # (Auto) Lymph # (Auto) Sharp # (Auto) Eos # (Auto) Baso # (Auto) D-Dimer Sodium Potassium Chloride Carbon Dioxide Anion Gap BUN Creatinine Est Cr Clr Drug Dosing Est GFR ( Amer) Est GFR (Non-Af Amer) BUN/Creatinine Ratio Glucose POC Glucose 232 H Calcium Total Bilirubin Direct Bilirubin AST ALT Alkaline Phosphatase Troponin I Total Protein Albumin PG Care Time/CCT Total # of Minutes Spent Total Time Spent with Patient: Total time spent is greater than 50% in coordina tion of care (as documented) at patient's floor/unit and/or counseling patient: (1) Chest pain Chest pain type: unspecified Qualified Code(s): R07.9 - Chest pain, unspecified (2) Cirrhosis Hepatic cirrhosis type: other cirrhosis Qualified Code(s): K74.69 - Other cirrhosis of liver (3) Diabetes mellitus, type 2 Diabetes mellitus jail insulin use: with jail use Diabetes mellitus complication status: with other specified complication Qualified Code(s): E11.69 - Type 2 diabetes mellitus with other specified complication; Z79.4 - exterminator helper termite (current) use of insulin (4) Coronary artery disease Coronary Disease-Associated Artery/Lesion type: [place]aver artery [place] vs. transplanted heart: beaver heart Associated angina: without angina Qualified Code(s): I25.10 - Atherosclerotic heart disease of beaver coronary artery without angina pectoris (5) Hypertension Hypertension type: essential hypertension Qualified Code(s): I10 - Essential (primary) hypertension
[2019-02-04] MEDS: POLYETHYLENE (MIRALAX) 17 GM PACK PO SCH (20:08)
[2019-02-04] MEDS: ASPIRIN 81 MG ECTAB PO SCH (20:12)
[2019-02-04] MEDS: INSULIN ASPART 100 UNITS/ML 3 ML PEN SC SCH (20:18)
--- NOTE | 2019-02-04 20:58 | Magnetic Resonance Report ---
MR MRCP HISTORY: 83 years-old Female elevated LFTs, liver m r/o bile duct obstruction. Acutely elevated LFTs with nausea, vomiting and history of colon cancer with hepatic metastasis. COMPARISON: CT abdomen and pelvis of same day, MRCP 09/16/2018 TECHNIQUE: MRCP without the use of IV contrast was obtained according to institutional protocol. FINDINGS: Limited exam secondary to patient motion. Mild right hemidiaphragmatic elevation. Trace pleural effus ions. Cardiomegaly. Imaged lung bases appear unremarkable. Trace perisplenic ascites. Moderate to sev ere generalized pancreatic atrophy. There are several T2 hyperintense cystic foci noted throughout th e pancreas, most pronounced in the pancreatic head and uncinate process measuring up to 1.3 cm which appear unchanged from prior study suggestive of sidebranch IPMN's. Mild left and moderate right hydroureteronephrosis. Calyceal blunting on the right is noted with area s of parenchymal thinning. Multiple subcentimeter T2 hyperintense lesions of the kidneys are incomple tely characterized however suggestive of probable cysts. No aortic aneurysm. Unremarkable IVC. Cirrhotic morphology of the liver. No definite portal vein thrombus. The questioned hyperdense thromb us of the portal vein on CT study of same day correlates with a previously described 7.3 x 4.6 cm exo phytic mass of the right hepatic lobe centered within segment V (previously measured at 7.2 x 4.6 cm on study from 09/16/2018) which again demonstrates intrahepatic and extrahepatic biliary extension. Th e extrahepatic biliary ductal extension of the mass has progressively worsened. Moderate to severe in trahepatic biliary ductal dilation with dilated common bile duct measuring up to [address] is also mildly dilated measuring up to 4 mm. There is mass effect upon the pancreatic head from th e distal common bile duct intraluminal lesion. Cholecystectomy. No bowel obstruction. Soft tissues and bony structures appear unremarkable. IMPRESSION: 1. Motion degraded exam. 2. Cirrhotic morphology of the liver redemonstrated along with a large partially exophytic right hepa tic lobe mass measuring up to 7.2 x 4.6 cm. The lesion extends into the intrahepatic bile ducts and d emonstrates progressive extension into the common bile duct which has worsened from the 09/16/2018 exa m. This results in moderate to severe intrahepatic and extrahepatic biliary ductal dilation. Extrinsi c mass effect upon the distal pancreatic duct results in mild associated pancreatic ductal dilation. 3. Right greater than left hydronephrosis. 4. Cardiomegaly with trace pericardial effusions. 5. No portal vein thrombosis identified. Further evaluation of the portal vein can be assessed with u ltrasound and Doppler interrogation. ACT 112: Negative or not required by law. The above report was generated using voice recognition software. It may contain grammatical, syntax o r spelling errors. Electronically signed by: Marito Grimes M.D. 02/04/2019 8:57 PM
[2019-02-05] MEDS: FERROUS SULFATE 325 MG TAB PO SCH ×2 (06:09→18:38)
[2019-02-05 06:41] LABS: Hematocrit (blood only) 33.6 % (37-47); Hemoglobin 10.3 g/dL (12.0-16.0); Mean Corpuscular Hgb Conc 30.7 g/dL (32-36); Mean Corpuscular Volume 91.3 fL (80-100); Mean Platelet Volume 12.7 fL (7.4-10.4); Partial Thromboplastin Ratio 1.2; Platelet Count 126 K/uL (130-400); RDW Standard Deviation 50.3 fL (36.4-46.3); Red Blood Count 3.68 M/uL (4.2-5.4); White Blood Count 4.58 K/uL (4.8-10.8)
[2019-02-05 07:04] LABS: Albumin Level 2.2 gm/dl (3.4-5.0); BUN Creatinine Ratio 30.8 (10-20); Calcium 9.2 mg/dl (8.5-10.1); Creatinine Clr Calc Pharmacy 42.9 ml/min; Est GFR (African American) 56.7; Potassium 3.6 mmol/L (3.5-5.1)
[2019-02-05 07:24] LABS: Platelet Estimate Decreased (Normal)
[2019-02-05 07:36] LABS: Albumin Globulin Ratio 0.5 (0.9-2); Bilirubin,Total 3.2 mg/dl (0.2-1); Globulin 4.6 gm/dl (2.5-4.0); Total Protein 6.8 gm/dl (6.4-8.2)
[2019-02-05] MEDS: HEPARIN SOD 5,000 UNIT/0.5 ML VIAL SQ SCH (07:59)
[2019-02-05] MEDS: PANTOprazole 40 MG TAB PO SCH (07:59)
[2019-02-05] MEDS: FOLIC ACID 1 MG TAB PO SCH (07:59)
[2019-02-05] MEDS: ASCORBIC ACID 500 MG TAB PO SCH ×2 (07:59→20:03)
[2019-02-05] MEDS: SENNA 8.6 MG TAB PO SCH (07:59)
[2019-02-05] MEDS: ISOSORBIDE MONO EXTENDED REL 30 MG TABCR PO SCH (08:00)
[2019-02-05] MEDS: AMLODIPINE BESYLATE 5 MG TAB PO SCH (08:00)
[2019-02-05] MEDS: DOCUSATE SODIUM 100 MG CAP PO SCH ×2 (08:00→20:01)
[2019-02-05] MEDS: CARBIDOPA/LEVODOPA 25/100MG TAB PO SCH ×3 (08:00→20:02)
[2019-02-05] MEDS: LACTOBACILLUS ACIDOPHILUS (FLORANEX) TAB PO SCH ×3 (08:00→18:37)
[2019-02-05] MEDS: carvediloL 6.25 MG TAB PO SCH ×2 (08:01→18:40)
[2019-02-05] MEDS: INSULIN ASPART 100 UNITS/ML 3 ML PEN SC SCH ×4 (08:01→20:04)
[2019-02-05] MEDS: VENLAFAXINE HCL 37.5 MG TAB PO SCH (08:01)
[2019-02-05] MEDS: POLYETHYLENE (MIRALAX) 17 GM PACK PO SCH (08:02)
[2019-02-05] MEDS: INSULIN DEGLUDEC 200 UNITS/ML PEN SQ SCH (08:02)
[2019-02-05] MEDS: LEVOFLOXACIN/D5W 250 MG/50 ML BAG IV SCH (08:03)
[2019-02-05] MEDS: OXYCODONE HCL 20 MG TABCR (OXYCONTIN) PO SCH ×2 (08:05→20:09)
[2019-02-05] MEDS: PREGABALIN 50 MG CAP PO SCH ×2 (08:05→20:01)
--- NOTE | 2019-02-05 10:48 | Ultrasound Report ---
DOPPLER ULTRASOUND OF THE HEPATIC AND PORTAL VASCULATURE CLINICAL HISTORY: Abnormal CT. Cirrhosis. Hepatic mass. COMPARISON STUDY: Abdominal CT dated 02/04/2019. FINDINGS: Real-time, grayscale, and color Doppler sonography of the hepatic and portal vasculature is performed. The main portal vein is patent with hepatopedal flow. Velocities within the main portal v ein measure up to 16 cm/s. The right and left lobe intrahepatic portal branches are patent. The right , middle, and left hepatic veins are patent. There is preservation of the normal hepatic venous wavef orms. IMPRESSION: The hepatic veins and portal veins are patent. Electronically signed by: Mario Thomas M.D. 02/05/2019 10:47 AM
[2019-02-05] MEDS ORDERED: PROPOFOL IV EMULSION 10 MG/ML 20 ML VIAL IV ONE (13:04)
[2019-02-05] MEDS ORDERED: LIDOCAINE HCL 2% 2 ML VIAL/AMP(20MG/ML) INFIL ONE (13:04)
[2019-02-05] MEDS ORDERED: DEXAMETHASONE SOD INJ 4 MG/ML VIAL ONE (13:04)
[2019-02-05] MEDS ORDERED: fentaNYL citrate 100 MCG/2 ML VIAL ONE (13:04)
[2019-02-05] MEDS ORDERED: ONDANSETRON INJ 2 MG/ML 2 ML VIAL ONE (13:04)
[2019-02-05] MEDS ORDERED: SUCCINYLCHOLINE 100MG/5ML SYR ONE (13:04)
--- NOTE | 2019-02-05 13:57 | Hospitalist Progress Note ---
Date of Service February 05, 2019 Assessment & Plan (1) Liver mass: s/p TACE at [facility] in the past. uncertain if this mass is a large metastatin lesion from prior colon cancer OR a primary HCC. either way it appears to be causing bile duct compression leading to her markedly elevated LFTs. she is a very poor candidate for any Rx of the liver mass. CT chest / abd / pelvis obtained today to rule out advancing metastatic disease in other locations for prognostic purposes. Only disease was that of the liver mass. treat pain with pain meds. some of her pain could be from the PVT as well. MRCP shows tumor invasion of bile ducts. ERCP today with GI. (2) Acute UTI: Pt recently hospitalized at formerly [facility] in [place] for UTI. I called the micro lab there today; culture from that hospital stay (which was prior to [place]) grew enterococcus. Culture here grew pseudomonas sensitive to quinolones. ?allergy to cipro but unknown reaction, if any. d/c rocephin. directly observed therapy with IV levaquin for the pseudomonas CT abd/pelvis today with b/l hydroureter and hydronephrosis -- chronic urinary reflux? role for stenting? will consider consult with urology. (3) Chest pain: Numerous episodes of such on past hospital stays without cardiac source. EKG with RBBB only; no ST changes. Trop negative. d-dimer markedly elevated. high risk of VTE due to cancer. checked dopplers of legs today - negative; this does not rule out PE, however. Suspect chest pain is referred pain from RUQ of abdomen. 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 If started on anticoagulation would not pursue additional w/u for PEs. (4) Portal vein thrombosis: seen on CT abd/pelvis. ideally needs anticoagulation. will need to speak with [facility] Heme/onc about risks vs benefits of such prior to initiating. (5) Elevated LFTs: WORSE since 09/2018. I spoke with Bashir BECKWITH who consulted. Had CBD stent up until 08/2018 at which point it was extracted during that August hospitalization. also with prior h/o hemobilia. (6) Metabolic encephalopathy: likely 2nd to acute UTI. ammonia wnl. CT head without mets. Improved overall today. (7) Parkinson disease: cont sinemet (8) Hemobilia: history of such early 2018 requiring transfer to [facility] (9) Cirrhosis: due to VALE? no decompensation today ammonia wnl (10) Diabetes mellitus, type 2: adjust novolog to correction factor of 45 and carb ratio of 1:15 leave basal insulin as is - Sugars ok at this point. (11) Coronary artery disease: despite reported h/o CAD no evidence of ACS despite her c/o chest discomfort cont amlodipine, asa, coreg, imdur repeat the troponin later this evening - Negative. (12) Chronic kidney disease, stage 3a: creatinine at baseline repeat level am (13) Chronic pain syndrome: cont chronic narcotics with bowel regimen gave dulcolax suppos x 1 today (impaction seen on CT) (14) Hypertension: cont home meds - BP acceptable today. (15) DVT prophylaxis: heparin 5000 BID daughter updated at bedside PT and OT evals Subjective Patient is sleepy, but arousable. Reports some abdominal pain. Reports no fevers/chills, chest pain, shortness of breath, abdominal pain, nausea, or vomiting. Physical Exam Constitutional: WD/WN, vitals as above cooperative and + lethargic Eyes: EOM intact bilaterally; no conjunctival abnormality ENMT: external ear and nose normal, oropharynx normal Neck: trachea midline, no thyromegaly normal visual inspection Respiratory: normal respiratory effort, lungs clear to auscultation no respiratory distress Cardiovascular: RRR, no murmur, no edema Gastrointestinal (Abdomen): Inspection/Auscultation: abdomen normal to inspection; abdomen not distended Percussion/Palpation: + guarding, + abdomen rigid and abdomen soft; abdomen nontender Musculoskeletal: no cyanosis or clubbing, extremities motor strength 5/5 Skin: no rashes, warm and dry Neurologic: moves all extremities and awake Psychiatric: Orientation: alert, oriented to person and cooperative Results & Data Vital Signs (Past 12 Hours) Vital Signs Temp Pulse Pulse Resp BP Pulse Ox 02/05/19 08:00 36.3 C L 71 20 146/77 H 97 02/05/19 07:14 61 02/05/19 03:43 36.3 C L 72 19 106/73 97 PG Care Time/CCT Total # of Minutes Spent Total Time Spent with Patient: Total time spent is greater than 50% in household coordinator rdination of care (as documented) at patient's floor/unit and/or counseling patient: (1) Chest pain Chest pain type: unspecified Qualified Code(s): R07.9 - Chest pain, unspecified (2) Cirrhosis Hepatic cirrhosis type: other cirrhosis Qualified Code(s): K74.69 - Other cirrhosis of liver (3) Diabetes mellitus, type 2 Diabetes mellitus shelter insulin use: with extermination supervisor use Diabetes mellitus complication status: with other specified complication Qualified Code(s): E11.69 - Type 2 diabetes mellitus with other specified complication; Z79.4 - assisted (current) use of insulin (4) Coronary artery disease Coronary Disease-Associated Artery/Lesion type: [place] artery [place] vs. transplanted heart: [place] heart Associated angina: without angina Qualified Code(s): I25.10 - Atherosclerotic heart disease of [place] coronary artery without angina pectoris (5) Hypertension Hypertension type: essential hypertension Qualified Code(s): I10 - Essential (primary) hypertension
--- NOTE | 2019-02-05 14:57 | History & Physical Bridge Note ---
Date of Service February 05, 2019 History & Physical Bridge Note I have examined the patient, reviewed the History & Physical and in the interval since the performance of the History & Physical I have noted the following changes of clinical significance: no changes noted MRCP showed CBD compression by tumor hence will need ERCP with metal stent placement
--- NOTE | 2019-02-05 15:09 | Anesthesiology Consultation ---
Date of Service February 05, 2019 Assessment & Plan (1) Encounter for pre-operative examination: History Surgery Operation Date: 02/05/19 14:30 Proposed Procedures p Endoscopic Retrograde Cholangiopancreato(Not Applicable) - Ellis Machuca MD Height/Weight Height: 5 ft 5 in Weight: 86.4 kg Allergies Allergy/AdvReac Type Severity Reaction Status Date / Time Iodinated Contrast Media Allergy Intermediate IV Verified 02/02/19 10:48 CONTRAST- HIVES Bactrim Allergy Unknown patient Verified 09/21/16 05:17 unsure Cipro Allergy Unknown unknown Verified 09/21/16 05:17 ciprofloxacin Allergy Unknown unknown Verified 02/02/19 10:48 nitrofurantoin Allergy Unknown unknown Verified 02/02/19 10:48 sulfamethoxazole Allergy Unknown patient Verified 02/02/19 10:48 unsure trimethoprim Allergy Unknown patient Verified 02/02/19 10:48 unsure acarbose AdvReac Mild GI SYMPTOMS Verified 02/02/19 10:48 azithromycin AdvReac Mild dizzy/nause Verified 02/02/19 10:48 a insulin glargine AdvReac Mild "Very ill" Verified 02/02/19 10:48 [From Lantus U-100 Insulin] - see comments metformin AdvReac Mild GI SYMPTOMS Verified 02/02/19 10:48 Penicillins AdvReac Mild dizzy, Verified 02/02/19 10:48 nausous (per patient) tolerated zosyn [id number] troglitazone AdvReac Mild GI SYMPTOMS Verified 02/02/19 10:48 Medications Home Medications Medication Instructions Recorded Confirmed Last Taken ascorbic acid (vitamin C) 500 mg PO BID 06/11/18 02/02/19 02/02/19 carvedilol 6.25 mg PO BIDM 06/11/18 02/02/19 02/02/19 docusate sodium 100 mg PO BID 06/11/18 02/02/19 08/23/18 folic acid 1 mg PO DAILY 06/11/18 02/02/19 02/02/19 nitroglycerin See Rx Instructions .ROUTE .COMPLEX 06/11/18 02/02/19 08/23/18 pantoprazole 40 mg PO QAM 06/11/18 02/02/19 02/02/19 Fiasp FlexTouch U-100 Insulin See Rx Instructions .ROUTE .COMPLEX 08/24/18 02/02/19 02/02/19 Tresiba FlexTouch U-200 26 unit SUBCUT QAM 08/24/18 02/02/19 02/02/19 aspirin [Aspirin Low Dose] 81 mg PO HS 08/24/18 02/02/19 02/02/19 atorvastatin 40 mg PO DAILY 08/24/18 02/02/19 02/02/19 carbidopa-levodopa 2 tab PO TID 08/24/18 02/02/19 08/23/18 isosorbide mononitrate 30 mg PO DAILY 08/24/18 02/02/19 02/02/19 oxycodone [OxyContin] 20 mg PO Q12H #6 tab 08/29/18 02/02/19 Unknown pregabalin [Lyrica] 50 mg PO BID #6 cap 08/29/18 02/02/19 02/02/19 ferrous sulfate 325 mg PO BID 09/14/18 02/02/19 02/02/19 oxycodone 5 mg PO Q4H PRN 09/14/18 02/02/19 Unknown venlafaxine 37.5 mg PO DAILY 09/14/18 02/02/19 02/02/19 prochlorperazine maleate 10 mg PO Q8H PRN 09/15/18 02/02/19 Unknown Active Medications Generic Name Dose Route Start Last Admin Trade Name Freq PRN Reason Stop Dose Admin Amlodipine Besylate 5 mg 02/04/19 09:00 02/05/19 08:00 Norvasc PO 03/06/19 08:59 5 mg QAM SARAH Administration Ascorbic Acid 500 mg 02/02/19 21:00 02/05/19 07:59 Vitamin C PO 03/04/19 20:59 500 mg BID SARAH Administration Aspirin 81 mg 02/02/19 21:00 02/04/19 20:12 Ecotrin Ectab PO 03/04/19 20:59 81 mg HS SARAH Administration Carbidopa/Levodopa 2 tab 02/02/19 21:00 02/05/19 13:47 Sinemet 25/100 Mg PO 03/04/19 20:59 2 tab TID SARAH Administration Carvedilol 6.25 mg 02/02/19 17:00 02/05/19 08:01 Coreg PO 03/04/19 16:59 6.25 mg BIDM SARAH Administration Docusate Sodium 100 mg 02/02/19 21:00 02/05/19 08:00 Colace PO 03/04/19 20:59 100 mg BID SARAH Administration Ferrous Sulfate 325 mg 02/02/19 19:00 02/05/19 06:09 Feosol PO 03/04/19 18:59 325 mg BID@0700,1900 SARAH Administration Folic Acid 1 mg 02/03/19 09:00 02/05/19 07:59 Folvite PO 03/05/19 08:59 1 mg DAILY SARAH Administration Heparin Sodium (Porcine) 5,000 units 02/02/19 21:00 02/05/19 07:59 Heparin Sodium (Porcine) SQ 03/04/19 20:59 5,000 units Q12 SARAH Administration Levofloxacin/Dextrose 250 mg in 50 mls @ 50 mls/hr 02/04/19 09:00 02/05/19 09:03 Levaquin/D5w IV 02/09/19 08:59 Infused DAILY [facility] Infusion Insulin Aspart 0 units 02/04/19 21:00 02/05/19 12:31 Novolog Flexpen SC 03/06/19 20:59 Not Given ACHS [facility] Insulin Degludec 26 units 02/03/19 09:00 02/05/19 08:02 Tresiba Flextouch U-200 SQ 03/05/19 08:59 26 units QAM SARAH Administration Isosorbide Mononitrate 30 mg 02/03/19 09:00 02/05/19 08:00 Imdur Extended Rel PO 03/05/19 08:59 30 mg DAILY [facility] Administration Lactobacillus Acidophilus 4 tab 02/04/19 12:00 02/05/19 12:38 Floranex PO 03/06/19 11:59 Not Given TIDM [facility] Nitroglycerin 0.4 mg 02/03/19 08:59 02/04/19 08:40 Nitrostat SL 03/05/19 08:58 0.4 mg PRN PRN Administration Chest Pain Oxycodone HCl 5 mg 02/02/19 16:04 02/04/19 16:59 Roxicodone Immediate Rel PO 02/16/19 16:03 5 mg Q4H PRN Administration Pain Oxycodone HCl 20 mg 02/02/19 21:00 02/05/19 08:05 Oxycontin PO 02/16/19 20:59 20 mg Q12 SARAH Administration Pantoprazole Sodium 40 mg 02/03/19 09:00 02/05/19 07:59 Protonix PO 03/05/19 08:59 40 mg QAM SARAH Administration Polyethylene Glycol 17 gm 02/04/19 19:00 02/05/19 08:02 Miralax Powder Packet PO 03/06/19 18:59 17 gm DAILY SARAH Administration Pregabalin 50 mg 02/02/19 21:00 02/05/19 08:05 Lyrica PO 03/04/19 20:59 50 mg BID SARAH Administration Sennosides 17.2 mg 02/04/19 13:45 02/05/19 07:59 Senokot PO 03/06/19 13:44 17.2 mg QAM SARAH Administration Venlafaxine HCl 37.5 mg 02/03/19 09:00 02/05/19 08:01 Effexor PO 03/05/19 08:59 37.5 mg DAILY SARAH Administration Past Medical History Medical History Atrial fibrillation (Chronic) "per old records" Chronic pain syndrome (Chronic) "arthritis + neuropathy" Coronary artery disease (Chronic) "s/p PCI ? [place]" Diabetes mellitus, type 2 (Chronic) Diabetic neuropathy (Chronic) GERD (gastroesophageal reflux disease) (Chronic) Hypertension (Chronic) Parkinson's disease (Chronic) Recurrent urinary tract infection (Chronic) Past Family History Family History Other Myocardial infarction Past Surgical History Surgical History Hx of endoscopic retrograde cholangiopancreatography June 2018 Status post cardiac catheterization (Chronic) Status post cholecystectomy (Chronic) Status post coronary artery stent placement (Chronic) Social History Smoking Status: Never smoker Do You Dip or Chew Tobacco: No Hx Alcohol Use: No alcohol intake frequency: holidays/special occasions only Hx Substance Use: No substance use type: does not use Physical Exam Vital Signs Last Vital Signs Temp 36.3 C L 02/05/19 08:00 Pulse 71 02/05/19 08:00 Resp 20 02/05/19 08:00 BP 146/77 H 02/05/19 08:00 Pulse Ox 97 02/05/19 08:00 Testing Laboratory Results 02/05/19 05:54 02/05/19 05:54 PT 10.3 Seconds (9.0-12.0) 02/02/19 10:14 INR 1.0 (0.9-1.1) 02/02/19 10:14 APTT 33.0 Seconds (21.0-31.0) H 02/05/19 05:54 Hemoglobin A1c 7.9 % (4.5-5.6) H 02/03/19 05:39 Urine Color Dark Yellow 02/02/19 10:45 Urine Appearance Clear (Clear) 02/02/19 10:45 Urine pH 6.5 (4.5-7.5) 02/02/19 10:45 Ur Specific [place] 1.012 (1.000-1.030) 02/02/19 10:45 Urine Protein Negative (Negative) 02/02/19 10:45 Urine Glucose (UA) Negative (Negative) 02/02/19 10:45 Urine Ketones Negative (Negative) 02/02/19 10:45 Urine Nitrite Positive (Negative) A 02/02/19 10:45 Ur Leukocyte Esterase 3+ (Negative) H 02/02/19 10:45 Urine WBC (Auto) >30 /hpf (0-5) H 02/02/19 10:45 Urine RBC (Auto) 0-4 /hpf (0-4) 02/02/19 10:45 U Hyaline Cast (Auto) 1-5 /lpf (0-5) 02/02/19 10:45 U Epithel Cells (Auto) >30 /lpf (0-5) H 02/02/19 10:45 Urine Bacteria (Auto) 1+ (Negative) H 02/02/19 10:45 02/04/19 09:27 Aerobic Blood Culture - Preliminary Blood No growth in Aerobic bottle after 24 hours. Anaerobic Blood Culture - Preliminary No growth in Anaerobic bottle after 24 hours. 02/04/19 09:48 Aerobic Blood Culture - Preliminary Blood No growth in Aerobic bottle after 24 hours. Anaerobic Blood Culture - Preliminary No growth in Anaerobic bottle after 24 hours. 02/02/19 10:45 Urine Culture - Final Urine,Straight Cath Pseudomonas aeruginosa 02/05/19 11:41 POC Glucose 141 H Electrocardiogram Date: 02/04/19 Normal sinus rhythm Right bundle branch block Abnormal ECG When compared with ECG of 02-FEB-2019 09:45, No significant change was found Confirmed by Kaiser Jaime ([id number]) on 02/04/2019 3:06:37 PM Chest X-Ray Date: 02/03/19 Mild cardiomegaly without acute process.
[2019-02-05] MEDS ORDERED: ATROPINE SULFATE 0.1 MG/ML 10ML SYR IV PRN (15:13)
[2019-02-05] MEDS ORDERED: ePHEDrine sulfate 50 MG/ML AMP IV PRN (15:13)
[2019-02-05] MEDS ORDERED: HYDROmorphone INJ 1 MG/ML SYRINGE IV PRN (15:13)
[2019-02-05] MEDS ORDERED: ONDANSETRON INJ 2 MG/ML 2 ML VIAL IV PRN (15:13)
[2019-02-05] MEDS ORDERED: fentaNYL citrate 100 MCG/2 ML VIAL IV PRN (15:13)
--- NOTE | 2019-02-05 17:05 | Operative Report ---
Post Operative Report Pre & Post Diagnosis Operation Date: 02/05/19 16:00 Pre-Op Diagnosis: JAUNDICE Post-Op Diagnosis: HEMOBILIA, BILIARIC STRICTURE I identified the patient and participated in the time-out.: Yes Procedure Operation Date: 02/05/19 16:00 Actual Procedures p Endoscopic Retrograde Cholangiopancreatoduodenoscopy(Not Applicable) - Ellis Machuca MD Surgeon Ellis Machuca MD Advanced Manufacturing Engineer None Estimated Blood Loss 0 Findings See Below (Hemobilia, Biliary stricture, Metal stent placed) Specimens None Description of Procedure ERCP I attest to the content of the Intraoperative Record and any orders documented therein. Any exceptions are noted below.
--- NOTE | 2019-02-05 17:20 | Fluoroscopy Report ---
INTRAOPERATIVE RADIOGRAPHS CLINICAL HISTORY: ERCP procedure. Fluoroscopy time: 265 seconds. FINDINGS: 12 spot fluoroscopic views of the right upper quadrant from an ERCP procedure are correlate d with MRCP dated 02/04/2019. Cholecystectomy clips are noted. There is cannulation of the common jose angel e duct, with large intraluminal filling defects. The final images show common bile duct stents in holden ce. There is intrahepatic biliary ductal dilatation. IMPRESSION: Intraoperative ERCP images as above. See operative report for detailed findings. Electronically signed by: Mario Thomas M.D. 02/05/2019 5:19 PM
--- NOTE | 2019-02-05 17:55 | GI REPORT ---
Patient Name: Katya Acevedo Procedure Date: 02/05/2019 3:30 PM Date of : 1935 Admit Type: Inpatient Age: 83 Gender: Female Attending MD: Ellis Machuca MD Procedure: ERCP Providers: Ellis Machuca MD Referring MD: Jason Hendricks, Krishna Villanueva, Parag Richard Md Indications: Abnormal MRCP, Jaundice, Elevated liver enzymes Medicines: Propofol per Anesthesia Complications: No immediate complications. Estimated Blood Loss: Estimated blood loss: none. Procedure: Pre-Anesthesia Assessment: - Prior to the procedure, a History and Physical was performed, and patient medications, allergies and sensitivities were reviewed. The patient's tolerance of previous anesthesia was reviewed. - The risks and benefits of the procedure and the sedation options and risks were discussed with the patient. All questions were answered and informed consent was obtained. - Patient identification and proposed procedure were verified prior to the procedure by the physician and the nurse. The procedure was verified in the procedure room. - Pre-procedure physical examination revealed no contraindications to sedation. After obtaining informed consent, the scope was passed under direct vision. Throughout the procedure, the patient's blood pressure, pulse, and oxygen saturations were monitored continuously. The Scope was introduced through the mouth, and advanced to the duodenum and used to inject contrast into the bile duct. The ERCP was accomplished without difficulty. The patient tolerated the procedure well. Findings: A energy economist film of the abdomen was obtained. Surgical clips, consistent with a previous cholecystectomy, were seen in the area of the right upper quadrant of the abdomen. The esophagus was successfully intubated under direct vision. The scope was advanced to a normal major papilla in the descending duodenum without detailed examination of the pharynx, larynx and associated structures, and upper GI tract. The upper GI tract was grossly normal. A biliary sphincterotomy had been performed. The sphincterotomy appeared open. A 0.035 inch straight standard wire was passed into the biliary tree. The 8.5 mm balloon was passed over the guidewire and the bile duct was then deeply cannulated. Contrast was injected. I personally interpreted the bile duct images. Ductal flow of contrast was adequate. Image quality was adequate. Contrast extended to the main bile duct. Upon initial injection, only the left hepatic duct was opacified, there was a long upper/middle common bile stricture with slight dilation of the lower common bile duct with filling defects. The right hepatic duct was not opacified despite injection with balloon occlusion. The first sweep of the duct reveled multple large blood clots consistent with hemobilia due to tumor invasion of the biliary tree. After manipulating the guidewire and the catheter, I was able to access and open her right hepatic duct and opacify the right intrahepatic duct branches and a 0.035 inch straight standard wire passed successfully into the right main hepatic duct keeping the other wire in the left hepatic duct. Both the left and right intrahepatic branches were dilated. The right hepatic duct along of the common hepatic duct extending into the middle CBD were strictured due to the tumor. This is consistent with (Bismuth IIIa). One 10 Fr by 10 cm transpapillary bare metal biliary stent was placed into the right hepatic duct which covered the entire length of the stricture. Bile flowed through the stent. The stent was in good position. One 10 Fr by 8 cm transpapillary bare metal biliary stent was placed into the left hepatic duct and the tip just reached the begenning of the left hepatic duct at the bifurcation (another 10 cm stent not available). Bile flowed through the stent. The stent was in good position. PD was not cannulatated nor injected with contrast. Impression: - Hemobilia was found due to bleeding from the tumor. 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 - The right and left intrahepatic branches was dilated. - One bare metal biliary stent was placed into the right hepatic duct. - One bare metal biliary stent was placed into the left hepatic duct. Recommendation: - [facility]. - Needs follow up with Oncology for further treatment options to control the tumor burden and help decrease the bleeding. COMMENT: The findings suggests that her abnormal LFTs would fluctuate due to the intermittent bleeding and clot formation into her CBD along with the heavy tumor invasion of the biliary tree. Ellis Machuca MD 02/05/2019 5:54:56 PM This report has been signed electronically. Note Initiated On: 02/05/2019 3:30 PM Number of Addenda: 0 I attest to the content of the Intraoperative Record and orders documented therein, exceptions below {[id number]}
--- NOTE | 2019-02-05 17:58 | Anesthesiology Progress Note ---
Date of Service February 05, 2019 Anesthesia Post Procedure Vital Signs Vital Signs: Temp Pulse Pulse Pulse Resp BP BP 02/05/19 17:50 36.5 C 68 20 115/54 L 02/05/19 17:40 68 18 111/55 L 02/05/19 17:30 68 14 137/84 02/05/19 17:22 36.3 C L 72 15 133/63 02/05/19 15:59 61 02/05/19 15:35 36.7 C 67 18 111/69 02/05/19 08:00 36.3 C L 71 20 146/77 H 02/05/19 07:14 61 02/05/19 03:43 36.3 C L 72 19 106/73 02/05/19 00:23 65 02/04/19 23:27 36.5 C 66 20 100/62 Pulse Ox 02/05/19 17:50 97 02/05/19 17:40 99 02/05/19 17:30 100 02/05/19 17:22 100 02/05/19 15:59 02/05/19 15:35 94 02/05/19 08:00 97 02/05/19 07:14 02/05/19 03:43 97 02/05/19 00:23 02/04/19 23:27 95 Pain Intensity Left Shoulder: Pain Intensity: 0 Left Chest: Pain Intensity: 9 Transfer of Care Handoff Completed per policy Notes Mental Status: alert / awake / arousable and participated in evaluation Patient Amnestic to Procedure: Yes Nausea / Vomiting: adequately controlled Pain: adequately controlled Airway Patency, RR, SpO2: stable & adequate BP & HR: stable & adequate Hydration State: stable & adequate Anesthetic Complications: no major complications apparent and Pt Satisfied with anesthetic care
[2019-02-05] MEDS: ASPIRIN 81 MG ECTAB PO SCH (20:01)
[2019-02-06] MEDS: OXYCODONE HCL IR 5 MG TAB (IMMEDIATE RELEASE) PO PRN ×2 (02:16→16:16)
[2019-02-06] MEDS: FERROUS SULFATE 325 MG TAB PO SCH ×2 (06:05→19:57)
[2019-02-06 06:18] LABS: Partial Thromboplastin Ratio 1.1; Partial Thromboplastin Time 29.3 Seconds (21.0-31.0); Prothrombin Time 10.3 Seconds (9.0-12.0)
[2019-02-06 06:20] LABS: Hemoglobin 9.6 g/dL (12.0-16.0); Mean Corpuscular Hemoglobin 28.5 pg (25-34); RDW Coefficient of Variation 15.1 % (11.5-14.5); RDW Standard Deviation 51.2 fL (36.4-46.3); Red Blood Count 3.37 M/uL (4.2-5.4); White Blood Count 4.05 K/uL (4.8-10.8)
[2019-02-06 06:40] LABS: Mean Platelet Volume 12.4 fL (7.4-10.4); Platelet Count 124 K/uL (130-400)
[2019-02-06 06:41] LABS: Albumin Level 2.1 gm/dl (3.4-5.0); BUN Creatinine Ratio 30.9 (10-20); Calcium 9.3 mg/dl (8.5-10.1); Creatinine Clr Calc Pharmacy 43.8 ml/min; Est GFR (African American) 58.8; Est GFR (Non-African American) 50.7; Potassium 3.9 mmol/L (3.5-5.1)
[2019-02-06 06:56] LABS: Albumin Globulin Ratio 0.5 (0.9-2); Bilirubin,Total 3.1 mg/dl (0.2-1); Globulin 4.6 gm/dl (2.5-4.0); Phosphorus 3.6 mg/dl (2.5-4.9); Total Protein 6.7 gm/dl (6.4-8.2)
[2019-02-06] MEDS: CARBIDOPA/LEVODOPA 25/100MG TAB PO SCH ×3 (08:14→20:01)
[2019-02-06] MEDS: ISOSORBIDE MONO EXTENDED REL 30 MG TABCR PO SCH (08:14)
[2019-02-06] MEDS: DOCUSATE SODIUM 100 MG CAP PO SCH ×2 (08:14→20:00)
[2019-02-06] MEDS: LEVOFLOXACIN/D5W 250 MG/50 ML BAG IV SCH (08:14)
[2019-02-06] MEDS: LACTOBACILLUS ACIDOPHILUS (FLORANEX) TAB PO SCH ×3 (08:15→17:10)
[2019-02-06] MEDS: VENLAFAXINE HCL 37.5 MG TAB PO SCH (08:15)
[2019-02-06] MEDS: carvediloL 6.25 MG TAB PO SCH ×2 (08:15→17:10)
[2019-02-06] MEDS: PANTOprazole 40 MG TAB PO SCH (08:16)
[2019-02-06] MEDS: ASCORBIC ACID 500 MG TAB PO SCH ×2 (08:16→20:02)
[2019-02-06] MEDS: POLYETHYLENE (MIRALAX) 17 GM PACK PO SCH (08:16)
[2019-02-06] MEDS: AMLODIPINE BESYLATE 5 MG TAB PO SCH (08:17)
[2019-02-06] MEDS: PREGABALIN 50 MG CAP PO SCH ×2 (08:26→20:04)
[2019-02-06] MEDS: INSULIN ASPART SQ SCH ×3 (08:27→17:12)
[2019-02-06] MEDS: INSULIN DEGLUDEC 200 UNITS/ML PEN SQ SCH (08:28)
[2019-02-06] MEDS: OXYCODONE HCL 20 MG TABCR (OXYCONTIN) PO SCH ×2 (08:31→20:01)
[2019-02-06] MEDS: SENNA 8.6 MG TAB PO SCH (08:34)
[2019-02-06] MEDS: FOLIC ACID 1 MG TAB PO SCH (08:38)
[2019-02-06] MEDS: INSULIN ASPART 100 UNITS/ML 3 ML PEN SC SCH (09:45)
--- NOTE | 2019-02-06 16:24 | Palliative Care Progress Note ---
Date of Service February 06, 2019 Subjective Went to see patient in her room 277-patient was out of bed in a chair all mornin g and through lunchtime. Patient now states she is fatigued and requested that I return tomorrow. Patient's sister and niece were at bedside. Niece informed me that patient's son had just on Radha-he was in hospice at home for lung cancer. Patient very fatigued-status post ERCP with stent placement. Will follow-up with patient and family in a.m. Results & Data Vital Signs (Past 12 Hours) Vital Signs Temp Pulse Pulse Pulse Resp BP Pulse Ox 02/06/19 16:00 97.5 F L 76 18 136/64 96 02/06/19 11:39 97.7 F 100 H 20 119/67 94 02/06/19 08:02 98.1 F 73 20 141/85 H 94 02/06/19 07:04 65 PG Care Time/CCT Total # of Minutes Spent Total Time Spent with Patient: Total time spent is greater than 50% in coordination of care (as documented) at patient's floor/unit and/or counseling patient:
[2019-02-06] MEDS: ASPIRIN 81 MG ECTAB PO SCH (20:00)
--- NOTE | 2019-02-06 21:25 | Hospitalist Progress Note ---
Date of Service February 06, 2019 Assessment & Plan (1) Liver mass: hepatocellular carcinoma based on verbal report from Dr Candelaria's office - [facility] heme/onc she is s/p TACE at [facility] in the past for this liver cancer CT chest / abd / pelvis obtained this admission to rule out advancing metastatic disease in other locations for prognostic purposes - did not see obvious mets POD #1 s/p ERCP by Jasener Gi tumor is causing intra and extrahepatic biliary ductal obstruction there was evidence of hemobilia as well stents placed in right AND left hepatic ducts I spoke with Dr Candelaria's nurse today by phone; Dr Candelaria was out of office until next week last office visit w/ him was 12/2018 at that visit a referral was made to Dr Mina for a 2nd opinion regarding treatment of her liver cancer I spoke with Dr Mina today - he was going to review his records daughter confirmed that patient indeed did see Dr Mina will await Dr Mina's return phone call tomorrow; will likely need formal heme/onc consultation (2) Acute UTI: CLINICALLY IMPROVED. 2nd to pseudomonas; sensitive to quinolones. has tolerated levaquin w/o rash or side effects thus far. CT abd/pelvis with b/l hydroureter and hydronephrosis -- chronic urinary reflux? role for stenting? will consider consult with urology but poor candidate for intervention/procedure. transition IV levaquin to PO levaquin; will need 4 more days starting tomorrow. (3) Chest pain: no c/o of such since earlier this week. no evidence of ACS. d-dimer was elevated but dopplers of legs neg for DVT. portal vein doppler negative for PVT. could consider v/q scan to r/o PE. (4) Portal vein thrombosis: ruled out negative doppler of portal system (5) Elevated LFTs: 2nd to liver mass compression for intra-hepatic and extra-hepatic biliary ductal system. s/p stents to right and left hepatic ducts. she will intermittently have rising/falling LFTs due to intermittent hemobilia. LFTs mildly improved from prior. recheck 48 hours. (6) Metabolic encephalopathy: likely 2nd to acute UTI. ammonia wnl. CT head without mets. no signs of cholangitis on ERCP yesterday. overall this is improved. (7) Parkinson disease: cont sinemet (8) Hemobilia: history of such early 2018 requiring transfer to [facility] recurrent - as seen on ERCP yesterday H/H acceptable hemobilia is 2nd to her liver mass (9) Cirrhosis: due to VALE? no decompensation on exam ammonia wnl (10) Diabetes mellitus, type 2: patient's family is adamant they want her to use her home insulin regimen will continue such glycemic control is acceptable (11) Coronary artery disease: despite reported h/o CAD no evidence of ACS this admission cont amlodipine, asa, coreg, imdur (12) Chronic kidney disease, stage 3a: creatinine at baseline repeat BMP am (13) Chronic pain syndrome: cont chronic narcotics with bowel regimen (14) Hypertension: cont home meds controlled (15) DVT prophylaxis: heparin 5000 BID CAUTIOUSLY in light of hemobilia H/H remain stable PT/OT recommending SNF for rehab total time today 80 minutes; this included speaking with daughter by phone; speaking with Dr Candelaria's nurse at [facility] heme/onc; speaking with Dr Mina; coordinating care at multi-disciplinary rounds Subjective during AM rounds patient was trying to work with occupational therapy. OT reported she was mod-max assist trying to get her to side of bed. patient stated she ate better this am. knew she was in the hospital. complained of left-sided abdominal pain. no chest pain. no dyspnea. tele overnight - NSR. had 3 conversations by phone today - with daughter Gala; with [facility] hematology/oncology Dr Candelaria's office; and Dr Mina (see assessment/plan). Review of Systems Constitutional: + fatigue; no fever Respiratory: no cough Cardiovascular: no chest pain Gastrointestinal: no nausea and no vomiting Physical Exam Constitutional: + frail appearing; no acute distress and no altered mental status Eyes: + scleral abnormality (icterus) ENMT: external ear and nose normal, oropharynx normal Respiratory: normal respiratory effort, lungs clear to auscultation Cardiovascular: Rate/Rhythm: regular rate and regular rhythm Heart Sounds: normal S1 and normal S2; no murmur Vessels: posterior tibial pulses present and dorsalis pedis pulses present; no JVD Extremities: no edema Gastrointestinal (Abdomen): Inspection/Auscultation: normal bowel sounds Percussion/Palpation: + abdomen tender (RUQ - mild; LUQ - minimal ) and + hepatomegaly; + abdomen not soft and no ascites Skin: no rashes, warm and dry Psychiatric: Orientation: alert, oriented to person and oriented to place Results & Data Vital Signs (Past 12 Hours) Vital Signs Temp Pulse Pulse Pulse Resp BP Pulse Ox 02/06/19 20:00 36.8 C 72 18 113/74 95 02/06/19 19:20 69 02/06/19 17:05 70 18 116/67 94 02/06/19 16:00 36.4 C L 76 18 136/64 96 02/06/19 11:39 36.5 C 100 H 20 119/67 94 Laboratory Results Laboratory Results - last 24 hr 02/06/19 02/06/19 02/06/19 05:46 05:46 05:46 WBC 4.05 L RBC 3.37 L Hgb 9.6 L Hct 31.0 L MCV 92.0 MCH 28.5 MCHC 31.0 L RDW Std Deviation 51.2 H RDW Coeff of Cha 15.1 H Plt Count 124 L MPV 12.4 H PT 10.3 INR 1.0 APTT 29.3 PTT Ratio 1.1 Sodium 138 Potassium 3.9 Chloride 104 Carbon Dioxide 29 Anion Gap 6.0 BUN 31 H Creatinine 1.01 Est Cr Clr Drug Dosing 43.8 Est GFR ( Amer) 58.8 Est GFR (Non-Af Amer) 50.7 BUN/Creatinine Ratio 30.9 H Glucose 89 POC Glucose Calcium 9.3 Phosphorus 3.6 Magnesium 2.0 Total Bilirubin 3.1 H AST 94 H ALT 27 Alkaline Phosphatase 1005 H Total Protein 6.7 Albumin 2.1 L Globulin 4.6 H Albumin/Globulin Ratio 0.5 L 02/06/19 02/06/19 02/06/19 07:48 11:42 16:38 WBC RBC Hgb Hct MCV MCH MCHC RDW Std Deviation RDW Coeff of Cha Plt Count MPV PT INR APTT PTT Ratio Sodium Potassium Chloride Carbon Dioxide Anion Gap BUN Creatinine Est Cr Clr Drug Dosing Est GFR ( Amer) Est GFR (Non-Af Amer) BUN/Creatinine Ratio Glucose POC Glucose 114 H 123 H 165 H Calcium Phosphorus Magnesium Total Bilirubin AST ALT Alkaline Phosphatase Total Protein Albumin Globulin Albumin/Globulin Ratio 02/06/19 20:31 WBC RBC Hgb Hct MCV MCH MCHC RDW Std Deviation RDW Coeff of Cha Plt Count MPV PT INR APTT PTT Ratio Sodium Potassium Chloride Carbon Dioxide Anion Gap BUN Creatinine Est Cr Clr Drug Dosing Est GFR ( Amer) Est GFR (Non-Af Amer) BUN/Creatinine Ratio Glucose POC Glucose 214 H Calcium Phosphorus Magnesium Total Bilirubin AST ALT Alkaline Phosphatase Total Protein Albumin Globulin Albumin/Globulin Ratio PG Care Time/CCT Total # of Minutes Spent Total Time Spent with Patient: Total time spent is greater than 50% in coordination of care (as documented) at patient's floor/unit and/or counseling patient: Prolonged Care Time Prolonged Care Time: Yes 80 minutes (1) Chest pain Chest pain type: unspecified Qualified Code(s): R07.9 - Chest pain, unspecified (2) Cirrhosis Hepatic cirrhosis type: other cirrhosis Qualified Code(s): K74.69 - Other cirrhosis of liver (3) Diabetes mellitus, type 2 Diabetes mellitus exterminator helper insulin use: with exterminator helper use Diabetes mellitus complication status: with other specified complication Qualified Code(s): E11.69 - Type 2 diabetes mellitus with other specified complication; Z79.4 - snf (current) use of insulin (4) Coronary artery disease Coronary Disease-Associated Artery/Lesion type: [place] artery [place] vs. transplanted heart: [place] heart Associated angina: without angina Qualified Code(s): I25.10 - Atherosclerotic heart disease of [place] coronary artery without angina pectoris (5) Hypertension Hypertension type: essential hypertension Qualified Code(s): I10 - Essential (primary) hypertension
[2019-02-07] MEDS: FERROUS SULFATE 325 MG TAB PO SCH ×2 (05:29→18:01)
[2019-02-07 07:29] LABS: BUN Creatinine Ratio 28.8 (10-20); Calcium 9.1 mg/dl (8.5-10.1); Creatinine Clr Calc Pharmacy 46.3 ml/min; Est GFR (African American) 63.3; Est GFR (Non-African American) 54.6; Potassium 4.2 mmol/L (3.5-5.1)
[2019-02-07] MEDS: INSULIN DEGLUDEC 200 UNITS/ML PEN SQ SCH (08:00)
[2019-02-07] MEDS: INSULIN ASPART SQ SCH ×3 (08:01→16:24)
[2019-02-07] MEDS: PANTOprazole 40 MG TAB PO SCH (08:02)
[2019-02-07] MEDS: ASCORBIC ACID 500 MG TAB PO SCH ×2 (08:02→20:00)
[2019-02-07] MEDS: VENLAFAXINE HCL 37.5 MG TAB PO SCH (08:02)
[2019-02-07] MEDS: DOCUSATE SODIUM 100 MG CAP PO SCH ×2 (08:03→19:56)
[2019-02-07] MEDS: LACTOBACILLUS ACIDOPHILUS (FLORANEX) TAB PO SCH ×3 (08:03→16:23)
[2019-02-07] MEDS: AMLODIPINE BESYLATE 5 MG TAB PO SCH (08:03)
[2019-02-07] MEDS: ISOSORBIDE MONO EXTENDED REL 30 MG TABCR PO SCH (08:03)
[2019-02-07] MEDS: FOLIC ACID 1 MG TAB PO SCH ×2 (08:04→19:56)
[2019-02-07] MEDS: SENNA 8.6 MG TAB PO SCH (08:04)
[2019-02-07] MEDS: CARBIDOPA/LEVODOPA 25/100MG TAB PO SCH ×3 (08:04→19:58)
[2019-02-07] MEDS: POLYETHYLENE (MIRALAX) 17 GM PACK PO SCH (08:05)
[2019-02-07] MEDS: carvediloL 6.25 MG TAB PO SCH ×2 (08:05→16:24)
[2019-02-07] MEDS: PREGABALIN 50 MG CAP PO SCH ×2 (08:07→20:03)
[2019-02-07] MEDS: OXYCODONE HCL 20 MG TABCR (OXYCONTIN) PO SCH ×2 (08:08→19:56)
[2019-02-07] MEDS: levoFLOXacin 250 MG TABLET PO SCH (12:35)
[2019-02-07] MEDS: OXYCODONE HCL IR 5 MG TAB (IMMEDIATE RELEASE) PO PRN (13:06)
--- NOTE | 2019-02-07 16:12 | Palliative Care Consultation ---
Date of Consultation February 07, 2019 Assessment & Plan (1) Goals of care, counseling/discussion: Patient is an 83-year-old female with a past medical history of Parkinson's-on Sinemet, CAD-status post stent, diabetes, recurrent UTIs and colon cancer who presented to the emergency room on 02/02 with left-sided chest pain and altered mental status. Patient's EKG did not show any acute changes, troponins were negative. Head CT did not show any acute changes. Patient was noted to have elevated LFTs -abdominal CT showed cirrhotic liver morphology, with nodularity. Biliary ductal dilatation with hyperdense thrombus in the portal vein and superior mesenteric vein. A 4.8 cm mass in the left lobe suspicious for HCC. Patient underwent ERCP on 02/05-was noted to have hemobilia, there was stricture due to tumor at the site of previous stent in the CBD. Patient is followed by oncology at [facility] for her colon cancer. Patient's urine was positive for Pseudomonas UTI-currently on p.o. Levaquin. Met with patient-no family at bedside. Did speak to daughter by phone yesterday. -Difficult to discuss goals of care and CODE STATUS in that patient's son on 02/04 under hospice care at home for lung cancer. Patient also lost her youngest son to an MVA in the past. Patient has 4 daughters that all live in [place], her daughter Devin lives with her. -Common bile duct obstruction-status post ERCP with clot removal -Liver mass-patient has been recommended to start oral Nexavar by [facility] oncology- Dr. Paige is also in agreement. Goal is for patient to go to rehab and regain strength so she can continue therapy for her liver mass. -Abdominal pain-patient's pain is adequately controlled with OxyContin 10 mg every 12, she did require 2 doses of PRN OxyIR in the past 24 hours. -LFTs-expected increase after ERCP-starting to trend downward -Recurrent UTIs-culture positive for Pseudomonas-patient on p.o. Levaquin -Opioid induced constipation-patient states constipation is controlled with daily MiraLAX and as needed prune juice. Patient stated she is not sure what she would want her CODE STATUS to be-patient will remain a full code at this time. (2) Common bile duct obstruction: (3) Liver mass: (4) Right upper quadrant abdominal pain: (5) Elevated LFTs: (6) Acute UTI: History of Present Illness Reason for Consultation: Address Goals of Care Requesting Physician: Dr Parag Richard Attending Physician: Jason Hendricks History of Present Illness Patient is an 83-year-old female with a past medical history of Parkinson's-on Sinemet, CAD-status post stent, diabetes, recurrent UTIs and colon cancer who presented to the emergency room on 02/02 with left-sided chest pain and altered mental status. Patient's EKG did not show any acute changes, troponins were negative. Head CT did not show any acute changes. Patient was noted to have elevated LFTs -abdominal CT showed cirrhotic liver morphology, with nodularity. Biliary ductal dilatation with hyperdense thrombus in the portal vein and superior mesenteric vein. A 4.8 cm mass in the left lobe suspicious for HCC. Patient underwent ERCP on 02/05-was noted to have hemobilia, there was stricture due to tumor at the site of previous stent in the CBD. Patient is followed by oncology at [facility] for her colon cancer. Patient's urine was positive for Pseudomonas UTI-currently on p.o. Levaquin. Met with patient-no family at bedside. Did speak to daughter by phone yesterday. -Difficult to discuss goals of care and CODE STATUS in that patient's son on 02/04 under hospice care at home for lung cancer. Patient also lost her youngest son to an MVA in the past. Patient has 4 daughters that all live in [place], her daughter Devin lives with her. -Patient has been recommended to start oral Nexavar by [facility] oncology-Dr. Paige is also in agreement. Goal is for patient to go to rehab and regain strength so she can continue therapy for her liver mass. -Patient's pain is adequately controlled with OxyContin 10 mg every 12, she did require 2 doses of PRN OxyIR in the past 24 hours. -Patient states constipation is controlled with daily MiraLAX and as needed prune juice. Allergies Allergy/AdvReac Type Severity Reaction Status Date / Time Iodinated Contrast Media Allergy Intermediate IV Verified 02/02/19 10:48 CONTRAST- HIVES Bactrim Allergy Unknown patient Verified 09/21/16 05:17 unsure Cipro Allergy Unknown unknown Verified 09/21/16 05:17 ciprofloxacin Allergy Unknown unknown Verified 02/02/19 10:48 nitrofurantoin Allergy Unknown unknown Verified 02/02/19 10:48 sulfamethoxazole Allergy Unknown patient Verified 02/02/19 10:48 unsure trimethoprim Allergy Unknown patient Verified 02/02/19 10:48 unsure acarbose AdvReac Mild GI SYMPTOMS Verified 02/02/19 10:48 azithromycin AdvReac Mild dizzy/nause Verified 02/02/19 10:48 a insulin glargine AdvReac Mild "Very ill" Verified 02/02/19 10:48 [From Lantus U-100 Insulin] - see comments metformin AdvReac Mild GI SYMPTOMS Verified 02/02/19 10:48 Penicillins AdvReac Mild dizzy, Verified 02/02/19 10:48 nausous (per patient) tolerated zosyn [id number] troglitazone AdvReac Mild GI SYMPTOMS Verified 02/02/19 10:48 Home Medications Home Medications Medication Instructions Recorded Confirmed Type ascorbic acid (vitamin C) 500 mg PO BID 06/11/18 02/02/19 History carvedilol 6.25 mg PO BIDM 06/11/18 02/02/19 History docusate sodium 100 mg PO BID 06/11/18 02/02/19 History folic acid 1 mg PO DAILY 06/11/18 02/02/19 History nitroglycerin See Rx Instructions .ROUTE .COMPLEX 06/11/18 02/02/19 History pantoprazole 40 mg PO QAM 06/11/18 02/02/19 History Fiasp FlexTouch U-100 Insulin See Rx Instructions .ROUTE .COMPLEX 08/24/18 02/02/19 History Tresiba FlexTouch U-200 26 unit SUBCUT QAM 08/24/18 02/02/19 History aspirin [Aspirin Low Dose] 81 mg PO HS 08/24/18 02/02/19 History atorvastatin 40 mg PO DAILY 08/24/18 02/02/19 History carbidopa-levodopa 2 tab PO TID 08/24/18 02/02/19 History isosorbide mononitrate 30 mg PO DAILY 08/24/18 02/02/19 History oxycodone [OxyContin] 20 mg PO Q12H #6 tab 08/29/18 02/02/19 Rx pregabalin [Lyrica] 50 mg PO BID #6 cap 08/29/18 02/02/19 Rx ferrous sulfate 325 mg PO BID 09/14/18 02/02/19 History oxycodone 5 mg PO Q4H PRN 09/14/18 02/02/19 History venlafaxine 37.5 mg PO DAILY 09/14/18 02/02/19 History prochlorperazine maleate 10 mg PO Q8H PRN 09/15/18 02/02/19 History Patient History Medical History Atrial fibrillation (Chronic) "per old records" Chronic pain syndrome (Chronic) "arthritis + neuropathy" Coronary artery disease (Chronic) "s/p PCI ? [place]" Diabetes mellitus, type 2 (Chronic) Diabetic neuropathy (Chronic) GERD (gastroesophageal reflux disease) (Chronic) Hypertension (Chronic) Parkinson's disease (Chronic) Recurrent urinary tract infection (Chronic) Surgical History Hx of endoscopic retrograde cholangiopancreatography June 2018 Status post cardiac catheterization (Chronic) Status post cholecystectomy (Chronic) Status post coronary artery stent placement (Chronic) Family History Other Myocardial infarction Social History Preferred Language: Hungarian Communication Ability: Impaired Microsoft Access Developer Required: No Beliefs That Will Affect Care: None marital status: / Current Living Situation: Family Current Living Situation Comment: Son and Daughter Other Information That Helps Us Care for You: No Feels Safe at Home: No Is there a partner from a previous relationship who is making you feel unsafe now?: No Any Concerns about Your Family Situation: Yes Would You Like to Speak to Someone About Your Situation: No Smoking Status: Never smoker Do You Dip or Chew Tobacco: No ; Second Hand Exposure: No ; Tobacco Cessation Education Requested by Patient: No Hx Alcohol Use: No Hx Substance Use: No Review of Systems Review of Systems: Patient denies fever, chills, further chest pain, shortness of breath. Positive for abdominal [id number] on current opioids Positive for constipation-controlled with MiraLAX and prune juice Physical Exam Physical Exam: PE: Patient awake and alert, no acute distress HEENT: EOMI, hearing within normal limits Respirations: Clear breath sounds bilaterally CV: Regular rate, no edema Abdomen: Soft, nontender to light palpation Extremities: Generalized weakness Neuro: Alert and oriented Psych: Depressed mood Results & Data Vital Signs (Past 12 Hours) Vital Signs Temp Pulse Pulse Pulse Resp BP BP 02/07/19 15:24 97.7 F 78 17 139/79 02/07/19 11:02 97.7 F 70 20 111/68 02/07/19 07:37 68 02/07/19 07:08 97.7 F 72 20 107/68 Pulse Ox 02/07/19 15:24 96 02/07/19 11:02 95 02/07/19 07:37 02/07/19 07:08 94 PG Care Time/CCT Total # of Minutes Spent Total Time Spent with Patient: Total time spent is greater than 50% in coordination of care (as documented) at patient's floor/unit and/or counseling patient: Time Spent Attending Total time spent 70 minutes with greater than 50% of the time spent at bedside reviewing patient's current medical issues, providing support the recent of her son, as well as initiating goals of care discussion.
[2019-02-07] MEDS: ASPIRIN 81 MG ECTAB PO SCH (19:57)
--- NOTE | 2019-02-07 21:10 | Hospitalist Progress Note ---
Date of Service February 07, 2019 Assessment & Plan (1) Liver mass: hepatocellular carcinoma based on verbal report from Dr Candelaria's office - [facility] heme/onc she is s/p TACE at [facility] in the past for this liver cancer CT chest / abd / pelvis obtained this admission to rule out advancing metastatic disease in other locations for prognostic purposes - did not see obvious mets POD #2 s/p ERCP by [facility] GI tumor causing intra and extrahepatic biliary ductal obstruction there was evidence of hemobilia as well during ERCP stents placed in right AND left hepatic ducts I spoke with Dr Candelaria's nurse on 02/06 -- she confirmed pt had been referred to Dr Mina for 2nd opinion; Dr Candelaria had recommended nexavar I spoke with Dr Mina yesterday/today - he agreed with Dr Candelaria's recommendation for nexavar; suggested dose - 200mg BID. As for candidacy for repeat TACE procedure - defer that to Dr Candelaria. Patient will need f/u with Dr Candelaria shortly after d/c; family aware of this plan (2) Acute UTI: CLINICALLY IMPROVED/RESOLVED. 2nd to pseudomonas; sensitive to quinolones. has tolerated levaquin w/o rash or side effects thus far. CT abd/pelvis with b/l hydroureter and hydronephrosis -- chronic urinary reflux? role for stenting? will consider consult with urology but poor candidate for intervention/procedure. day #4/7 of levaquin (3) Chest pain: no c/o of such since earlier this week. no evidence of ACS. d-dimer was elevated but dopplers of legs neg for DVT. portal vein doppler negative for PVT. could consider v/q scan to r/o PE if she has recurrent symptoms. (4) Portal vein thrombosis: ruled out negative doppler of portal system (5) Elevated LFTs: 2nd to liver mass compressing her intra-hepatic and extra-hepatic biliary ductal system. s/p stents to right and left hepatic ducts via ERCP on 02/05/19. she will intermittently have rising/falling LFTs due to intermittent hemobilia. LFTs mildly improved from prior. recheck LFTs in am. (6) Metabolic encephalopathy: IMPROVED. likely 2nd to acute UTI. ammonia wnl. CT head without mets. no signs of cholangitis on ERCP. 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 no decompensation on exam ammonia wnl (10) Diabetes mellitus, type 2: patient's family is adamant they want her to use her home insulin regimen will continue such glycemic control is acceptable (11) Coronary artery disease: despite reported h/o CAD no evidence of ACS this admission cont amlodipine, asa, coreg, imdur no chest pain in a few days (which was thought 2nd to her liver mass, not cardiac) (12) Chronic kidney disease, stage 3a: stable; BMP am (13) Chronic pain syndrome: cont chronic narcotics with bowel regimen (14) Hypertension: cont home meds controlled (15) Physical deconditioning: needs rehab (16) DVT prophylaxis: heparin 5000 BID CAUTIOUSLY in light of hemobilia H/H remain stable; CBC am PT/OT recommending SNF for rehab lengthy family meeting held today; see HPI for details discussed care plan today at multidisciplinary rounds social work aware of family requests Subjective spoke with Dr German Mina from oncology this am. he states he saw the patient as a "2nd opinion" for her hepatocellular carcinoma on Nov 19 2018. he agreed with Dr Candelaria from [facility] heme/onc to initiate nexavar treatment 200mg BID. however, patient never started on it - reasons uncertain. Dr Mina suggested she f/u with Dr Candelaria after d/c to initiate the nexavar. I met with the patient and her 3 daughters at bedside today. we discussed current issues (hemobilia, obstructing liver mass from HCC, UTI, deconditioning/weakness and needing max assistance, etc). The daughter with whom she lives actually observed the therapy session today and she agreed her mother is very weak. The daughters all asked if her mother was still a candidate for TACE procedure in [place]. I told them that I was unsure and that they should discuss this with Dr Candelaria at time of f/u. At conclusion of discussion (about 30 minutes in duration) the daughters stated they wanted Ms Acevedo to go to rehab and preferred a rehab center in [place]. HOWEVER - they want the mother to go home FIRST to be able to attend her son's (son just from lung ca on hospice). Review of Systems Constitutional: + fatigue; no fever and no chills Respiratory: no cough Cardiovascular: no chest pain Gastrointestinal: + abdominal pain (left side of abdomen today); no nausea and no vomiting Genitourinary: no dysuria Physical Exam Constitutional: + frail appearing; no acute distress and no altered mental status Eyes: + anicteric sclerae ENMT: external ear and nose normal, oropharynx normal Respiratory: normal respiratory effort, lungs clear to auscultation Auscultation: + crackles (minimal - bases) Cardiovascular: Rate/Rhythm: regular rate and regular rhythm Heart Sounds: normal S1 and normal S2; no murmur Vessels: posterior tibial pulses present and dorsalis pedis pulses present; no JVD Extremities: no edema Gastrointestinal (Abdomen): Inspection/Auscultation: normal bowel sounds Percussion/Palpation: + abdomen tender (left side of abdomen and RUQ (both minimal)) and + hepatomegaly; + abdomen not soft and no ascites Skin: no rashes, warm and dry Psychiatric: Orientation: alert, oriented to person and oriented to place Affect: + flat affect Results & Data Vital Signs (Past 12 Hours) Vital Signs Temp Pulse Pulse Resp BP Pulse Ox 02/07/19 19:27 36.8 C 74 19 127/75 97 02/07/19 15:24 36.5 C 78 17 139/79 96 02/07/19 11:02 36.5 C 70 20 111/68 95 Laboratory Results Laboratory Results - last 24 hr 02/07/19 02/07/19 06:53 20:06 Sodium 137 Potassium 4.2 Chloride 105 Carbon Dioxide 29 Anion Gap 3.0 BUN 27 H Creatinine 0.95 Est Cr Clr Drug Dosing 46.3 Est GFR ( Amer) 63.3 Est GFR (Non-Af Amer) 54.6 BUN/Creatinine Ratio 28.8 H Glucose 144 H POC Glucose 169 H Calcium 9.1 PG Care Time/CCT Total # of Minutes Spent Total Time Spent with Patient: Total time spent is greater than 50% in coordination of care (as documented) at patient's floor/unit and/or counseling patient: (1) Chest pain Chest pain type: unspecified Qualified Code(s): R07.9 - Chest pain, unspecified (2) Cirrhosis Hepatic cirrhosis type: other cirrhosis Qualified Code(s): K74.69 - Other cirrhosis of liver (3) Diabetes mellitus, type 2 Diabetes mellitus intermodal dispatcher insulin use: with intermodal dispatcher use Diabetes mellitus complication status: with other specified complication Qualified Code(s): E11.69 - Type 2 diabetes mellitus with other specified complication; Z79.4 - exterminator termite (current) use of insulin (4) Coronary artery disease Coronary Disease-Associated Artery/Lesion type: [place] artery [place] vs. transplanted heart: [place] heart Associated angina: without angina Qualified Code(s): I25.10 - Atherosclerotic heart disease of [place] coronary artery without angina pectoris (5) Hypertension Hypertension type: essential hypertension Qualified Code(s): I10 - Essential (primary) hypertension
[2019-02-08] MEDS: FERROUS SULFATE 325 MG TAB PO SCH ×2 (06:37→19:16)
[2019-02-08 07:15] LABS: Hematocrit (blood only) 34.2 % (37-47); Hemoglobin 10.4 g/dL (12.0-16.0); Mean Corpuscular Hemoglobin 28.1 pg (25-34); Mean Corpuscular Hgb Conc 30.4 g/dL (32-36); Mean Corpuscular Volume 92.4 fL (80-100); Mean Platelet Volume 11.8 fL (7.4-10.4); Platelet Count 146 K/uL (130-400); RDW Coefficient of Variation 15.2 % (11.5-14.5); RDW Standard Deviation 51.7 fL (36.4-46.3)
[2019-02-08 07:45] LABS: Albumin Level 2.2 gm/dl (3.4-5.0); BUN Creatinine Ratio 23.6 (10-20); Calcium 9.4 mg/dl (8.5-10.1); Creatinine Clr Calc Pharmacy 49.3 ml/min; Est GFR (African American) 67.6; Est GFR (Non-African American) 58.3
[2019-02-08 07:54] LABS: Albumin Globulin Ratio 0.5 (0.9-2); Bilirubin,Total 1.4 mg/dl (0.2-1); Globulin 4.5 gm/dl (2.5-4.0); Total Protein 6.7 gm/dl (6.4-8.2)
[2019-02-08] MEDS: INSULIN DEGLUDEC 200 UNITS/ML PEN SQ SCH (08:45)
[2019-02-08] MEDS: INSULIN ASPART SQ SCH ×3 (08:45→17:15)
[2019-02-08] MEDS: AMLODIPINE BESYLATE 5 MG TAB PO SCH (08:46)
[2019-02-08] MEDS: VENLAFAXINE HCL 37.5 MG TAB PO SCH (08:47)
[2019-02-08] MEDS: DOCUSATE SODIUM 100 MG CAP PO SCH ×2 (08:47→20:25)
[2019-02-08] MEDS: LACTOBACILLUS ACIDOPHILUS (FLORANEX) TAB PO SCH ×3 (08:47→16:03)
[2019-02-08] MEDS: carvediloL 6.25 MG TAB PO SCH ×2 (08:47→16:04)
[2019-02-08] MEDS: PANTOprazole 40 MG TAB PO SCH (08:48)
[2019-02-08] MEDS: CARBIDOPA/LEVODOPA 25/100MG TAB PO SCH ×3 (08:48→20:23)
[2019-02-08] MEDS: ISOSORBIDE MONO EXTENDED REL 30 MG TABCR PO SCH (08:48)
[2019-02-08] MEDS: SENNA 8.6 MG TAB PO SCH (08:49)
[2019-02-08] MEDS: PREGABALIN 50 MG CAP PO SCH ×2 (08:49→20:27)
[2019-02-08] MEDS: ASCORBIC ACID 500 MG TAB PO SCH ×2 (08:49→20:24)
[2019-02-08] MEDS: POLYETHYLENE (MIRALAX) 17 GM PACK PO SCH (08:49)
[2019-02-08] MEDS: OXYCODONE HCL 20 MG TABCR (OXYCONTIN) PO SCH ×2 (08:49→20:27)
[2019-02-08] MEDS: FOLIC ACID 1 MG TAB PO SCH (10:45)
[2019-02-08] MEDS: levoFLOXacin 250 MG TABLET PO SCH (11:36)
[2019-02-08] MEDS: ASPIRIN 81 MG ECTAB PO SCH (20:25)
--- NOTE | 2019-02-09 00:51 | Hospitalist Progress Note ---
Date of Service February 08, 2019 Assessment & Plan (1) Liver mass: hepatocellular carcinoma she is s/p TACE at [facility] in the past for this liver cancer CT chest / abd / pelvis without obvious mets POD #3 s/p ERCP by [facility] HCC causing intra and extrahepatic biliary ductal obstruction there was evidence of hemobilia as well during ERCP stents placed in right AND left hepatic ducts primary oncologist - Dr Candelaria [facility]; had recommended nexavar 2nd opinion given by Dr Mina in November - also recommended nexavar 200mg BID patient never started on such; has had frequent admits for UTI, etc Patient will need f/u with Dr Candelaria shortly after d/c; family aware of this plan (2) Acute UTI: CLINICALLY IMPROVED/RESOLVED. 2nd to pseudomonas; sensitive to quinolones. has tolerated levaquin w/o rash or side effects thus far. CT abd/pelvis with b/l hydroureter and hydronephrosis -- chronic urinary reflux? role for stenting? will consider consult with urology but poor candidate for intervention/procedure. day #5/7 of levaquin (3) Chest pain: no c/o of such since earlier this week. no evidence of ACS. d-dimer was elevated but dopplers of legs neg for DVT. portal vein doppler negative for PVT. could consider v/q scan to r/o PE if she has recurrent symptoms. (4) Portal vein thrombosis: ruled out negative doppler of portal system (5) Elevated LFTs: 2nd to liver mass compressing her intra-hepatic and extra-hepatic biliary ductal system. s/p stents to right and left hepatic ducts via ERCP on 02/05/19. she will intermittently have rising/falling LFTs due to intermittent hemobilia. 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 no decompensation on exam ammonia wnl (10) Diabetes mellitus, type 2: patient's family is adamant they want her to use her home insulin regimen will continue such glycemic control is acceptable at this time (11) Coronary artery disease: despite reported h/o CAD no evidence of ACS this admission cont amlodipine, asa, coreg, imdur no chest pain in a few days (which was thought 2nd to her liver mass, not cardiac) has had chest pain on prior admits with previous cardiac w/u negative (12) Chronic kidney disease, stage 3a: stable (13) Chronic pain syndrome: cont chronic narcotics with bowel regimen (14) Hypertension: cont home meds controlled (15) Physical deconditioning: needs rehab (16) DVT prophylaxis: heparin 5000 BID CAUTIOUSLY in light of hemobilia H/H remain stable however PT/OT recommending SNF for rehab still believe safest option is d/c to rehab rather than home family wanting to take patient home FIRST so that she can attend her son's (son just of lung ca this week), then go to rehab again not certain this is safe d/c plan I discussed my concerns w/ social work today Subjective no issues overnight pt stated during rounds "don't let me go [from the hospital] until I am stronger" she stated "i'm so weak" denies any new complaints Review of Systems Constitutional: + fatigue; no fever and no anorexia Respiratory: no cough Cardiovascular: + dyspnea at rest (occasionally) Gastrointestinal: no abdominal pain, no nausea and no vomiting Physical Exam Constitutional: + frail appearing; no acute distress and no altered mental status ENMT: external ear and nose normal, oropharynx normal Respiratory: normal respiratory effort, lungs clear to auscultation Auscultation: no crackles and no wheezes Cardiovascular: Rate/Rhythm: regular rate and regular rhythm Heart Sounds: normal S1 and normal S2; no murmur Vessels: posterior tibial pulses present and dorsalis pedis pulses present; no JVD Extremities: no edema Gastrointestinal (Abdomen): Inspection/Auscultation: normal bowel sounds; abdomen not distended Percussion/Palpation: abdomen soft and + hepatomegaly; abdomen nontender and no ascites Skin: no rashes, warm and dry no jaundice (mild- face only ) Psychiatric: Orientation: alert, oriented to person and oriented to place Affect: + flat affect Results & Data Vital Signs (Past 12 Hours) Vital Signs Temp Pulse Pulse Pulse Resp BP BP 01/04/20 23:53 72 02/08/19 23:31 36.8 C 75 18 142/84 H 02/08/19 19:34 36.9 C 71 21 112/66 02/08/19 16:41 67 02/08/19 15:25 37.0 C 63 20 131/78 Pulse Ox 02/08/19 23:53 02/08/19 23:31 95 02/08/19 19:34 96 02/08/19 16:41 02/08/19 15:25 93 Laboratory Results Laboratory Results - last 24 hr 02/08/19 02/08/19 02/08/19 07:04 07:04 07:54 WBC 5.30 RBC 3.70 L Hgb 10.4 L Hct 34.2 L MCV 92.4 MCH 28.1 MCHC 30.4 L RDW Std Deviation 51.7 H RDW Coeff of Cha 15.2 H Plt Count 146 MPV 11.8 H Sodium 140 Potassium 4.0 Chloride 106 Carbon Dioxide 31 Anion Gap 3.0 BUN 21 H Creatinine 0.90 Est Cr Clr Drug Dosing 49.3 Est GFR ( Amer) 67.6 Est GFR (Non-Af Amer) 58.3 BUN/Creatinine Ratio 23.6 H Glucose 89 POC Glucose 90 Calcium 9.4 Total Bilirubin 1.4 H AST 41 H ALT 25 Alkaline Phosphatase 939 H Total Protein 6.7 Albumin 2.2 L Globulin 4.5 H Albumin/Globulin Ratio 0.5 L 02/08/19 02/08/19 02/08/19 11:36 16:26 20:26 WBC RBC Hgb Hct MCV MCH MCHC RDW Std Deviation RDW Coeff of Cha Plt Count MPV Sodium Potassium Chloride Carbon Dioxide Anion Gap BUN Creatinine Est Cr Clr Drug Dosing Est GFR ( Amer) Est GFR (Non-Af Amer) BUN/Creatinine Ratio Glucose POC Glucose 159 H 154 H 186 H Calcium Total Bilirubin AST ALT Alkaline Phosphatase Total Protein Albumin Globulin Albumin/Globulin Ratio PG Care Time/CCT Total # of Minutes Spent Total Time Spent with Patient: Total time spent is greater than 50% in coordination of care (as documented) at patient's floor/unit and/or counseling patient: (1) Diabetes mellitus, type 2 Diabetes mellitus complication status: with other specified complication Diabetes mellitus termite renewal inspector insulin use: with snf use Qualified Code(s): E11.69 - Type 2 diabetes mellitus with other specified complication; Z79.4 - skilled nursing (current) use of insulin (2) Coronary artery disease Associated angina: without angina Coronary Disease-Associated Artery/Lesion type: [place] artery [place] vs. transplanted heart: [place] heart Qualified Code(s): I25.10 - Atherosclerotic heart disease of [place] coronary artery without angina pectoris (3) Cirrhosis Hepatic cirrhosis type: other cirrhosis Qualified Code(s): K74.69 - Other cirrhosis of liver (4) Chest pain Chest pain type: unspecified Qualified Code(s): R07.9 - Chest pain, unspecified (5) Hypertension Hypertension type: essential hypertension Qualified Code(s): I10 - Essential (primary) hypertension
[2019-02-09] MEDS: FERROUS SULFATE 325 MG TAB PO SCH ×2 (05:55→18:09)
[2019-02-09] MEDS: INSULIN DEGLUDEC 200 UNITS/ML PEN SQ SCH (07:36)
[2019-02-09] MEDS: INSULIN ASPART SQ SCH ×3 (07:37→17:02)
[2019-02-09] MEDS: ISOSORBIDE MONO EXTENDED REL 30 MG TABCR PO SCH (07:38)
[2019-02-09] MEDS: FOLIC ACID 1 MG TAB PO SCH (07:38)
[2019-02-09] MEDS: PANTOprazole 40 MG TAB PO SCH (07:38)
[2019-02-09] MEDS: ASCORBIC ACID 500 MG TAB PO SCH ×2 (07:38→20:17)
[2019-02-09] MEDS: CARBIDOPA/LEVODOPA 25/100MG TAB PO SCH ×3 (07:38→20:15)
[2019-02-09] MEDS: SENNA 8.6 MG TAB PO SCH (07:38)
[2019-02-09] MEDS: AMLODIPINE BESYLATE 5 MG TAB PO SCH (07:38)
[2019-02-09] MEDS: carvediloL 6.25 MG TAB PO SCH ×2 (07:39→17:03)
[2019-02-09] MEDS: POLYETHYLENE (MIRALAX) 17 GM PACK PO SCH (07:39)
[2019-02-09] MEDS: LACTOBACILLUS ACIDOPHILUS (FLORANEX) TAB PO SCH ×3 (07:39→17:03)
[2019-02-09] MEDS: VENLAFAXINE HCL 37.5 MG TAB PO SCH (07:39)
[2019-02-09] MEDS: DOCUSATE SODIUM 100 MG CAP PO SCH ×2 (07:39→20:15)
[2019-02-09] MEDS: PREGABALIN 50 MG CAP PO SCH ×2 (07:46→20:18)
[2019-02-09] MEDS: OXYCODONE HCL 20 MG TABCR (OXYCONTIN) PO SCH ×2 (07:46→20:18)
[2019-02-09] MEDS: levoFLOXacin 250 MG TABLET PO SCH (11:31)
--- NOTE | 2019-02-09 18:33 | Hospitalist Progress Note ---
Date of Service February 09, 2019 Assessment & Plan (1) Liver mass: hepatocellular carcinoma she is s/p TACE at [facility] in the past for the cancer CT chest / abd / pelvis this admission without obvious mets POD #4 s/p ERCP by [facility] HCC was causing intra and extrahepatic biliary ductal obstruction there was evidence of hemobilia as well during ERCP stents placed in right AND left hepatic ducts [facility] had recommended nexavar 2nd opinion (requested by family) was ultimately given by Dr Mina in November - he also recommended nexavar 200mg BID patient never started on such; has had frequent admits for UTI, etc likely preventing initiation of the chemo Patient will need f/u with Dr Candelaria in [place] shortly after d/c; family aware of this plan since the ERCP her LFTs have improved (2) Acute UTI: CLINICALLY RESOLVED. 2nd to pseudomonas; sensitive to quinolones. has tolerated levaquin w/o rash or side effects this admission. CT abd/pelvis with b/l hydroureter and hydronephrosis -- chronic urinary reflux? role for stenting? could consider consult with urology but poor candidate for intervention/procedure. day #6/7 of levaquin consider outpatient f/u with urology for this (3) Chest pain: no c/o of such since earlier this week. no evidence of ACS. d-dimer was elevated but dopplers of legs neg for DVT. portal vein doppler n egative for PVT. I believe her pain was referred pain from the liver. (4) Portal vein thrombosis: ruled out negative doppler of portal system (5) Elevated LFTs: 2nd to liver mass compressing her intra-hepatic and extra-hepatic biliary ductal system. s/p stents to right and left hepatic ducts via ERCP on 02/05/19. she will intermittently have rising/falling LFTs due to intermittent hemobilia as suggested by [facility]. since the ERCP her LFTs have improved. repeat LFTs am tomorrow. 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 no decompensation on exam ammonia wnl and no signs of hepatic encephalopathy (10) Diabetes mellitus, type 2: patient's family is adamant they want her to use her home insulin regimen will continue such glycemic control is acceptable at this time with occasional highs (11) Coronary artery disease: despite reported h/o CAD no evidence of ACS this admission cont amlodipine, asa, coreg, imdur no chest pain in a few days (which was thought 2nd to her liver mass, not cardiac) has had chest pain on prior admits with previous cardiac w/u negative (12) Chronic kidney disease, stage 3a: stable repeat BMP am (13) Chronic pain syndrome: cont chronic narcotics (oxycontin 20mg BID) and oxycodone prn with bowel regimen (14) Hypertension: cont home meds controlled (15) Physical deconditioning: needs rehab - lengthy discussion held with pt and her 2 daughters after this discussion patient was willing to undergo referral to [facility] in [place] social work - Steve Freitas - spoke with family at bedside today discharge anticipated next 1-2 days (16) DVT prophylaxis: chemical means deferred due to hemobilia seen on ERCP this admission Subjective pt's 2 daughters at bedside today. patient states "why are my stools dark?" staff have not noted any gross abnormalities. she has no complaints of abd pain today. jaundice improved - family have noted such. we had a lengthy discussion about discharge disposition. family initially wanted to take patient home first for a few days so that Mrs Acevedo could attend the of her son. after much discussion patient/family WERE agreeable to rehab referral. they prefer [facility]. Review of Systems Constitutional: no fever, no chills and no anorexia (appetite has improved while here ) Respiratory: no cough and no dyspnea Cardiovascular: no chest pain Gastrointestinal: no abdominal pain, no nausea and no vomiting Physical Exam Constitutional: no acute distress and no altered mental status best she has looked all week ENMT: external ear and nose normal, oropharynx normal Respiratory: normal respiratory effort, lungs clear to auscultation Auscultation: no crackles and no wheezes Cardiovascular: Rate/Rhythm: regular rate and regular rhythm Heart Sounds: normal S1 and normal S2; no murmur Vessels: posterior tibial pulses present and dorsalis pedis pulses present; no JVD Extremities: no edema Gastrointestinal (Abdomen): Inspection/Auscultation: normal bowel sounds; abdomen not distended Percussion/Palpation: abdomen soft and + hepatomegaly; abdomen nontender Skin: no rashes, warm and dry Psychiatric: Orientation: alert, oriented to person, oriented to place and o riented to time Affect: + flat affect Results & Data Vital Signs (Past 12 Hours) Vital Signs Temp Pulse Pulse Pulse Resp BP Pulse Ox 02/09/19 16:00 36.6 C 74 18 106/68 99 02/09/19 11:52 36.8 C 75 18 113/69 96 02/09/19 08:00 72 02/09/19 07:43 36.5 C 70 20 135/83 94 Laboratory Results Laboratory Results - last 24 hr 02/07/19 02/07/19 02/07/19 07:20 11:23 16:25 POC Glucose 154 H 227 H 134 H 02/08/19 02/09/19 02/09/19 20:26 07:15 11:26 POC Glucose 186 H 79 189 H 02/09/19 17:01 POC Glucose 142 H PG Care Time/CCT Total # of Minutes Spent Total Time Spent with Patient: Total time spent is greater than 50% in coordination of care (as documented) at patient's floor/unit and/or counseling patient: (1) Diabetes mellitus, type 2 Diabetes mellitus complication status: with other specified complication Diabetes mellitus vermin exterminator insulin use: with shelter use Qualified Code(s): E11.69 - Type 2 diabetes mellitus with other specified complication; Z79.4 - termite control representative (current) use of insulin (2) Coronary artery disease Associated angina: without angina Coronary Disease-Associated Artery/Lesion type: [place] artery [place] vs. transplanted heart: [place] heart Qualified Code(s): I25.10 - Atherosclerotic heart disease of [place] coronary artery without angina pectoris (3) Cirrhosis Hepatic cirrhosis type: other cirrhosis Qualified Code(s): K74.69 - Other cirrhosis of liver (4) Chest pain Chest pain type: unspecified Qualified Code(s): R07.9 - Chest pain, unspecified (5) Hypertension Hypertension type: essential hypertension Qualified Code(s): I10 - Essential (primary) hypertension
[2019-02-09] MEDS: ASPIRIN 81 MG ECTAB PO SCH (20:15)
[2019-02-10] MEDS: FERROUS SULFATE 325 MG TAB PO SCH ×2 (05:40→18:01)
[2019-02-10 06:38] LABS: Hematocrit (blood only) 33.4 % (37-47); Hemoglobin 10.1 g/dL (12.0-16.0); Mean Corpuscular Hemoglobin 28.6 pg (25-34); Mean Corpuscular Hgb Conc 30.2 g/dL (32-36); Mean Corpuscular Volume 94.6 fL (80-100); Mean Platelet Volume 11.6 fL (7.4-10.4); Platelet Count 147 K/uL (130-400); RDW Coefficient of Variation 15.4 % (11.5-14.5); RDW Standard Deviation 52.8 fL (36.4-46.3); Red Blood Count 3.53 M/uL (4.2-5.4)
[2019-02-10 07:15] LABS: Albumin Level 2.1 gm/dl (3.4-5.0); Calcium 8.9 mg/dl (8.5-10.1); Creatinine Clr Calc Pharmacy 43.5 ml/min; Est GFR (African American) 58.1; Est GFR (Non-African American) 50.1; Potassium 4.2 mmol/L (3.5-5.1)
[2019-02-10 07:18] LABS: Albumin Globulin Ratio 0.5 (0.9-2); Globulin 4.6 gm/dl (2.5-4.0); Total Protein 6.7 gm/dl (6.4-8.2)
[2019-02-10] MEDS: LACTOBACILLUS ACIDOPHILUS (FLORANEX) TAB PO SCH ×3 (08:17→18:02)
[2019-02-10] MEDS: PREGABALIN 50 MG CAP PO SCH ×2 (08:17→21:56)
[2019-02-10] MEDS: OXYCODONE HCL 20 MG TABCR (OXYCONTIN) PO SCH ×2 (08:17→21:56)
[2019-02-10] MEDS: AMLODIPINE BESYLATE 5 MG TAB PO SCH (08:18)
[2019-02-10] MEDS: FOLIC ACID 1 MG TAB PO SCH (08:18)
[2019-02-10] MEDS: VENLAFAXINE HCL 37.5 MG TAB PO SCH (08:18)
[2019-02-10] MEDS: SENNA 8.6 MG TAB PO SCH (08:18)
[2019-02-10] MEDS: CARBIDOPA/LEVODOPA 25/100MG TAB PO SCH ×3 (08:18→21:48)
[2019-02-10] MEDS: carvediloL 6.25 MG TAB PO SCH ×2 (08:18→18:04)
[2019-02-10] MEDS: PANTOprazole 40 MG TAB PO SCH (08:18)
[2019-02-10] MEDS: ISOSORBIDE MONO EXTENDED REL 30 MG TABCR PO SCH (08:18)
[2019-02-10] MEDS: POLYETHYLENE (MIRALAX) 17 GM PACK PO SCH (08:19)
[2019-02-10] MEDS: ASCORBIC ACID 500 MG TAB PO SCH ×2 (08:19→21:47)
[2019-02-10] MEDS: INSULIN ASPART SQ SCH ×3 (08:19→18:06)
[2019-02-10] MEDS: DOCUSATE SODIUM 100 MG CAP PO SCH ×2 (08:19→21:56)
[2019-02-10] MEDS: INSULIN DEGLUDEC 200 UNITS/ML PEN SQ SCH (08:20)
[2019-02-10] MEDS: levoFLOXacin 250 MG TABLET PO SCH (10:48)
--- NOTE | 2019-02-10 18:41 | Hospitalist Progress Note ---
Date of Service February 10, 2019 Assessment & Plan (1) Liver mass: hepatocellular carcinoma she is s/p TACE at [facility] in the past for the cancer CT chest / abd / pelvis this admission without obvious mets s/p ERCP by [facility] HCC was causing intra and extrahepatic biliary ductal obstruction there was evidence of hemobilia as well during ERCP stents placed in right AND left hepatic ducts primary oncologist - Dr Candelaria [facility]; had recommended nexavar 2nd opinion (requested by family) was ultimately given by Dr Mina in November - he also recommended nexavar 200mg BID patient never started on such; has had frequent admits for UTI, etc likely preventing initiation of the chemo Patient will need f/u with Dr Candelaria in [place] shortly after d/c; family aware of this plan LFTs wnl, alk phos remains elevated (2) Acute UTI: RESOLVED. 2nd to pseudomonas; sensitive to quinolones. has tolerated levaquin w/o rash or side effects this admission. CT abd/pelvis with b/l hydroureter and hydronephrosis -- chronic urinary reflux? role for stenting? Levaquin to finish today - 7 day regimen consider outpatient f/u with urology for this (3) Chest pain: no c/o of such since earlier this week. no evidence of ACS. d-dimer was elevated but dopplers of legs neg for DVT. portal vein doppler negative for PVT. pain likely referred pain from the liver. (4) Portal vein thrombosis: ruled out negative doppler of portal system (5) Elevated LFTs: 2nd to liver mass compressing her intra-hepatic and extra-hepatic biliary ductal system. s/p stents to right and left hepatic ducts via ERCP on 02/05/19. she will intermittently have rising/falling LFTs due to intermittent hemobilia as suggested by [facility]. 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 no decompensation on exam ammonia wnl and no signs of hepatic encephalopathy (10) Diabetes mellitus, type 2: patient's family is adamant they want her to use her home insulin regimen will continue such glycemic control is acceptable at this time with occasional highs (11) Coronary artery disease: despite reported h/o CAD no evidence of ACS this admission cont amlodipine, asa, coreg, imdur no chest pain in a few days (which was thought 2nd to her liver mass, not cardiac) has had chest pain on prior admits with previous cardiac w/u negative (12) Chronic kidney disease, stage 3a: stable repeat BMP am (13) Chronic pain syndrome: cont chronic narcotics (oxycontin 20mg BID) and oxycodone prn with bowel regimen (14) Hypertension: cont home meds controlled (15) Physical deconditioning: Dispo: DC to [facility] [place] tomorrow (16) DVT prophylaxis: chemical means deferred due to hemobilia seen on ERCP this admission Subjective Ms. Acevedo has no complaints today. She was up to a chair at the time of my assessment and appeared comfortable. ROS Constitutional: no chills, aches, sweats or fever Respiratory: no sob,cough, sputum, or wheezing Cardiac: no chest pain, palpitations, edema, orthopnea or lightheadedness GI: no abdominal pain, nausea, vomiting, diarrhea or constipation : no dysuria or hesitancy Extremities: no joint pain or weakness Skin: no rash All other systems reviewed and negative Physical Exam Physical Exam: General: no distress Eyes: normal inspection, PERLL Respiratory: chest non tender, clear to auscultation, normal breath sounds, no respiratory distress, no accessory muscle use Cardiac: regular rate and rhythm, no rub or gallop, systolic murmur, no edema, no jvd GI/: active bowel sounds, no abd pain or tenderness, soft, non distended Extremities: normal range of motion, normal strength, non tender Neuro/Psych: alert and oriented x 3, normal mood and affect Skin: normal color, dry Results & Data Vital Signs (Past 12 Hours) Vital Signs Temp Pulse Resp BP Pulse Ox 02/10/19 15:33 36.8 C 67 17 121/67 96 02/10/19 07:57 36.5 C 73 16 126/58 L 93 PG Care Time/CCT Total # of Minutes Spent Total Time Spent with Patient: Total time spent is greater than 50% in coordination of care (as documented) at patient's floor/unit and/or counseling patient: (1) Diabetes mellitus, type 2 Diabetes mellitus complication status: with other specified complication Diabetes mellitus residential insulin use: with residential use Qualified Code(s): E11.69 - Type 2 diabetes mellitus with other specified complication; Z79.4 - senior care (current) use of insulin (2) Coronary artery disease Associated angina: without angina Coronary Disease-Associated Artery/Lesion type: [place] artery [place] vs. transplanted heart: [place] heart Qualified Code(s): I25.10 - Atherosclerotic heart disease of [place] coronary artery without angina pectoris (3) Cirrhosis Hepatic cirrhosis type: other cirrhosis Qualified Code(s): K74.69 - Other cirrhosis of liver (4) Chest pain Chest pain type: unspecified Qualified Code(s): R07.9 - Chest pain, unspecified (5) Hypertension Hypertension type: essential hypertension Qualified Code(s): I10 - Essential (primary) hypertension
[2019-02-10] MEDS: OXYCODONE HCL IR 5 MG TAB (IMMEDIATE RELEASE) PO PRN (20:27)
[2019-02-10] MEDS: ASPIRIN 81 MG ECTAB PO SCH (21:48)
[2019-02-10 23:23] VITALS: PULSE 71
[2019-02-11] MEDS: FERROUS SULFATE 325 MG TAB PO SCH (06:37)
[2019-02-11 07:10] LABS: Hematocrit (blood only) 32.5 % (37-47); Hemoglobin 9.9 g/dL (12.0-16.0); Mean Corpuscular Hemoglobin 28.1 pg (25-34); Mean Corpuscular Hgb Conc 30.5 g/dL (32-36); Mean Corpuscular Volume 92.3 fL (80-100); Mean Platelet Volume 12.2 fL (7.4-10.4); Platelet Count 145 K/uL (130-400); RDW Coefficient of Variation 15.4 % (11.5-14.5); RDW Standard Deviation 52.2 fL (36.4-46.3); Red Blood Count 3.52 M/uL (4.2-5.4)
[2019-02-11 07:39] VITALS: BP 152/83; TEMP 97.9; O2SAT 94
[2019-02-11 07:42] LABS: Albumin Level 2.1 gm/dl (3.4-5.0); BUN Creatinine Ratio 19.9 (10-20); Creatinine Clr Calc Pharmacy 48.3 ml/min; Est GFR (African American) 65.8; Est GFR (Non-African American) 56.8; Potassium 4.4 mmol/L (3.5-5.1)
[2019-02-11 07:44] LABS: Albumin Globulin Ratio 0.5 (0.9-2); Globulin 4.4 gm/dl (2.5-4.0); Total Protein 6.5 gm/dl (6.4-8.2)
[2019-02-11] MEDS: VENLAFAXINE HCL 37.5 MG TAB PO SCH (08:12)
[2019-02-11] MEDS: PREGABALIN 50 MG CAP PO SCH (08:12)
[2019-02-11] MEDS: LACTOBACILLUS ACIDOPHILUS (FLORANEX) TAB PO SCH (08:15)
[2019-02-11] MEDS: SENNA 8.6 MG TAB PO SCH (08:17)
[2019-02-11] MEDS: FOLIC ACID 1 MG TAB PO SCH (08:18)
[2019-02-11] MEDS: AMLODIPINE BESYLATE 5 MG TAB PO SCH (08:18)
[2019-02-11] MEDS: ISOSORBIDE MONO EXTENDED REL 30 MG TABCR PO SCH (08:18)
[2019-02-11] MEDS: carvediloL 6.25 MG TAB PO SCH (08:18)
[2019-02-11] MEDS: PANTOprazole 40 MG TAB PO SCH (08:18)
[2019-02-11] MEDS: CARBIDOPA/LEVODOPA 25/100MG TAB PO SCH (08:19)
[2019-02-11] MEDS: ASCORBIC ACID 500 MG TAB PO SCH (08:19)
[2019-02-11] MEDS: OXYCODONE HCL 20 MG TABCR (OXYCONTIN) PO SCH (08:26)
[2019-02-11] MEDS: DOCUSATE SODIUM 100 MG CAP PO SCH (08:26)
[2019-02-11] MEDS: POLYETHYLENE (MIRALAX) 17 GM PACK PO SCH (08:26)
--- NOTE | 2019-02-11 08:26 | Discharge Summary ---
Date of Service February 11, 2019 Admission HPI Per Admitting Provider This is an 83-year-old female with past mental history of colon cancer metastatic to the liver, frequent UTIs, hypertension, and type 2 diabetes mellitus with presents today with confusion and hallucinations. Patient is very poor historian but accompanied by her daughter who is able to give me much more information. Patient has apparently been having problems with recurrent urinary tract infections. She tells me she was admitted to [facility] approximately 3 weeks ago with similar complaints and was treated with antibiotics. She was then admitted proximally 1 week ago to the same hospital similar problems. She tells me on that occasion she was discharged with Macrobid which she finished this morning. Since this morning, she is noticed the patient has had ongoing visual hallucinations. She sees her sister who had previously . She also seems to be much more weak than previously. She did mention also she had some chest pain, although this seems to be more chest wall pain as it is very tender to any palpitation or exam. Of note, the patient has a known colon cancer that was previously treated per the daughter. And this apparently recurred with hepatic lesions. This is colitis elevated transaminases along with an elevated alk phos. I do note that the alk phos has been elevated but this seems to be the highest level. She tells me she is about to start oral treatment and follows with Dr. Candelaria at [facility]. At the time my evaluation, the patient does appear little sleepy but does answer questions appropriately. She has no cardiopulmonary distress. She is not requiring supplemental oxygen. Principal Diagnosis Weakness, UTI, liver mass Discharge Exam Constitutional WD/WN, vitals as above Respiratory normal respiratory effort, lungs clear to auscultation Gastrointestinal (Abdomen) Inspection/Auscultation: abdomen normal to inspection and normal bowel sounds; abdomen not distended Percussion/Palpation: abdomen soft; abdomen nontender Musculoskeletal generalized weakness Skin no rashes, warm and dry Neurologic moves all extremities and awake Psychiatric Orientation: alert and oriented x 3 Affect: + flat affect Discharge Data Allergies Allergy/AdvReac Type Severity Reaction Status Date / Time Iodinated Contrast Media Allergy Intermediate IV Verified 02/02/19 10:48 CONTRAST- HIVES Bactrim Allergy Unknown patient Verified 09/21/16 05:17 unsure Cipro Allergy Unknown unknown Verified 09/21/16 05:17 ciprofloxacin Allergy Unknown unknown Verified 02/02/19 10:48 nitrofurantoin Allergy Unknown unknown Verified 02/02/19 10:48 sulfamethoxazole Allergy Unknown patient Verified 02/02/19 10:48 unsure trimethoprim Allergy Unknown patient Verified 02/02/19 10:48 unsure acarbose AdvReac Mild GI SYMPTOMS Verified 02/02/19 10:48 azithromycin AdvReac Mild dizzy/nause Verified 02/02/19 10:48 a insulin glargine AdvReac Mild "Very ill" Verified 02/02/19 10:48 [From Lantus U-100 Insulin] - see comments metformin AdvReac Mild GI SYMPTOMS Verified 02/02/19 10:48 Penicillins AdvReac Mild dizzy, Verified 02/02/19 10:48 nausous (per patient) tolerated zosyn [id number] troglitazone AdvReac Mild GI SYMPTOMS Verified 02/02/19 10:48 Consultations 02/02/19 12:02 ED Decision to Admit Stat 02/04/19 15:05 Consult Gastroenterology Routine 02/05/19 07:34 Consult Palliative Care Routine Procedures Performed Operation Date: 02/05/19 16:00 Actual Procedures p Endoscopic Retrograde Cholangiopancreatoduodenoscopy(Not Applicable) - Ellis Machuca MD Ordered Studies 02/03/19 11:13 CT head/brain wo con Routine 02/04/19 11:42 CT abd pelvis wo con Routine CT chest wo con Routine US venous doppler LE BI Routine 02/04/19 16:27 MR MRCP Routine 02/05/19 06:13 US duplex portal hepatic veins Routine 02/05/19 07:00 FL ERCP biliary ductal Routine Hospital Course (1) Liver mass: hepatocellular carcinoma she is s/p TACE at [facility] in the past for the cancer CT chest / abd / pelvis this admission without obvious mets s/p ERCP by [facility] HCC was causing intra and extrahepatic biliary ductal obstruction there was evidence of hemobilia as well during ERCP stents placed in right AND left hepatic ducts primary oncologist - Dr Candelaria [facility]; had recommended nexavar 2nd opinion (requested by family) was ultimately given by Dr Mina in November - he also recommended nexavar 200mg BID patient never started on such; has had frequent admits for UTI, etc likely preventing initiation of the chemo Patient will need f/u with Dr Teagan de la torre [place] shortly after d/c; family aware of this plan Will also need to f/u with GI AST 41, ALT wnl, alk phos remains elevated (2) Acute UTI: RESOLVED. 2nd to pseudomonas; sensitive to quinolones. has tolerated levaquin w/o rash or side effects this admission. CT abd/pelvis with b/l hydroureter and hydronephrosis -- chronic urinary reflux? role for stenting? Levaquin completed 1/6- 7 day regimen Will need outpatient f/u with urology for this (3) Chest pain: no c/o of such since earlier this week. no evidence of ACS. d-dimer was elevated but dopplers of legs neg for DVT. portal vein doppler negative for PVT. She does report some dyspnea with exertion which upon reviewing chart is a chronic complaint and may be more due to deconditioning than anything else. Patient also reports this is chronic and about her usual level of sob with exertion. Lungs sound clear today. No cough. No chest pain. Saturating mid 90s on room air. Her lower extremity dopplers were negative. Considered sending her for a VQ, kidney function precludes CTA, but given that she is not a good candidate for anticoagulation due to her hemobilia and she reports this is about her baseline dyspnea and that she has had these complaints in previous admissions, will defer on further workup. Could consider VQ if her dyspnea worsens. pain likely referred pain from the liver. (4) Portal vein thrombosis: ruled out negative doppler of portal system (5) Elevated LFTs: 2nd to liver mass compressing her intra-hepatic and extra-hepatic biliary ductal system. s/p stents to right and left hepatic ducts via ERCP on 02/05/19. she will intermittently have rising/falling LFTs due to intermittent hemobilia as suggested by [facility]. 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 no decompensation on exam ammonia wnl and no signs of hepatic encephalopathy (10) Diabetes mellitus, type 2: patient's family is adamant they want her to use her home insulin regimen will continue such glycemic control is acceptable at this time with occasional highs (11) Coronary artery disease: despite reported h/o CAD no evidence of ACS this admission cont amlodipine, asa, coreg, imdur no chest pain in a few days (which was thought 2nd to her liver mass, not cardiac) has had chest pain on prior admits with previous cardiac w/u negative (12) Chronic kidney disease, stage 3a: stable repeat BMP am (13) Chronic pain syndrome: cont chronic narcotics (oxycontin 20mg BID) and oxycodone prn with bowel regimen (14) Hypertension: cont home meds controlled (15) Physical deconditioning: Dispo: DC to [facility] (16) DVT prophylaxis: chemical means deferred due to hemobilia seen on ERCP this admission Total Time Total Time Spent Total Time Spent (In Minutes): greater than 30 minutes Discharge Plan Discharge Items Patient Disposition: Transfer Inpatient Rehab Fac Reason For Visit: WEAKNESS,UTI Discharge Diagnosis: Weakness, UTI, liver mass Activity: Resume your previous activity Activity Comment: gradually per therapy recommendations Non-emergency contact: Primary Care Provider Call non-emergency contact if: you have any medication questions, your symptoms worsen and you have a fever Follow-up/Referrals: Krishna Villanueva [Primary Care Provider] - Diet: Carb Consistent or DM2 Addtl Attending Provider Instructions: (1) Liver mass: Hepatocellular carcinoma she is status post TACE at [facility] in the past for the cancer CT scan chest / abd / pelvis this admission without obvious metastasis Status post ERCP by [facility] 02/05 - HCC was causing intra and extrahepatic biliary ductal obstruction - There was evidence of hemobilia as well during ERCP - stents placed in right AND left hepatic ducts primary oncologist - Dr Candelaria [facility]; had recommended Nexavar 2nd opinion (requested by family) was ultimately given by Dr Mina in November - he also recommended Nexavar 200mg BID Ms. Acevedo was never started on suc due to frequent admits for UTI, etc likely preventing initiation of the chemo Patient will need f/u with Dr Teagan de la torre [place] shortly after d/c; family aware of this plan Patient should also follow up with GI Would repeat LFTs in a few days. AST today is 41, ALT wnl, alk phos 692 (2) Acute UTI: RESOLVED. Secondary to pseudomonas; sensitive to quinolones. Has tolerated levaquin w/o rash or side effects this admission. CT abd/pelvis with b/l hydroureter and hydronephrosis -- chronic urinary reflux? Levaquin to finished 02/10 after a 7 day regimen Kidney function is stable Please have Ms. Acevedo follow up with urology for this (3) Chest pain: No complaints of such since earlier this week. no evidence of ACS. d-dimer was elevated but dopplers of legs neg for DVT. Portal vein doppler negative for PVT. Pain likely referred pain from the liver. (4) Portal vein thrombosis: Ruled out Negative doppler of portal system (5) Elevated LFTs: Secondary to liver mass compressing her intra-hepatic and extra-hepatic biliary ductal system. Status post stents to right and left hepatic ducts via ERCP on 02/05/19. she will intermittently have rising/falling LFTs due to intermittent hemobilia as suggested by [facility]. LFTs as above - improved (6) Metabolic encephalopathy: resolved likely secondary to acute UTI cannot rule out biliary issues contributing (7) Parkinson disease: Continue Sinemet (8) Hemobilia: History of such early 2018 requiring transfer to [facility] recurrent - as seen on ERCP this admission hemobilia is secondary to her liver mass the "dark" stool she is seeing could be 2nd to iron supplementation OR old blood from the biliary ductal bleeding - hemoglobin has been stable (9) Cirrhosis: No decompensation on exam Ammonia wnl and no signs of hepatic encephalopathy (10) Diabetes mellitus, type 2: Continue home insulin regimen Glycemic control is acceptable at this time with occasional highs (11) Coronary artery disease: Despite reported h/o CAD no evidence of ACS this admission Continue amlodipine, aspirin, Coreg, Imdur no chest pain in a few days (which was thought 2nd to her liver mass, not cardiac) has had chest pain on prior admits with previous cardiac w/u negative (12) Chronic kidney disease, stage 3a: stable (13) Chronic pain syndrome: Continue chronic narcotics (oxycontin 20mg BID) and oxycodone prn Continue Bowel regimen (14) Hypertension: Cont home meds controlled (15) Physical deconditioning: Dispo: DC to [facility] for rehab Pending Studies at Discharge: No Stand-Alone Forms: My [facility] Skilled Items Patient informed of condition?: Yes DNR: No Discharge Level of Care: Acute rehab Communicable Disease: No Discharge Prognosis: Stable Lines: None Urinary Catheter: No Medications and DC Order Prescriptions: New amlodipine [Norvasc] 5 mg Tablet 5 mg PO QAM Qty: 30 RF: 0 nitroglycerin [Nitrostat] 0.4 mg Tablet, Sublingual 0.4 mg sublingual PRN PRN (Reason: chest pain) Qty: 30 RF: 0 sennosides [Senokot] 8.6 mg Tablet 17.2 mg PO QAM Qty: 30 RF: 0 polyethylene glycol 3350 [Miralax] 17 gram Powder In Packet 17 g PO DAILY Qty: 30 RF: 0 Lactobacillus acidoph-L.bulgar [Floranex] 1 million cell Tablet 4 tab PO TIDM Qty: 20 RF: 0 Continued docusate sodium 100 mg Capsule 100 mg PO BID RF: 0 carvedilol 6.25 mg Tablet 6.25 mg PO BIDM RF: 0 ascorbic acid (vitamin C) 500 mg Tablet 500 mg PO BID RF: 0 pantoprazole 40 mg Tablet,Delayed Release (Dr/Ec) 40 mg PO QAM RF: 0 nitroglycerin 0.4 mg Tablet, Sublingual See Rx Instructions .ROUTE .COMPLEX RF: 0 folic acid 1 mg Tablet 1 mg PO DAILY RF: 0 atorvastatin 40 mg Tablet 40 mg PO DAILY RF: 0 isosorbide mononitrate 30 mg Tablet Extended Release 24 Hr 30 mg PO DAILY RF: 0 aspirin [Aspirin Low Dose] 81 mg Tablet,Delayed Release (Dr/Ec) 81 mg PO HS RF: 0 carbidopa-levodopa 25-100 mg Tablet 2 tab PO TID RF: 0 Tresiba FlexTouch U-200 200 unit/mL (3 mL) Insulin Pen 26 unit SUBCUT QAM RF: 0 Fiasp FlexTouch U-100 Insulin 100 unit/mL (3 mL) Insulin Pen See Rx Instructions .ROUTE .COMPLEX RF: 0 pregabalin [Lyrica] 50 mg Capsule 50 mg PO BID Qty: 6 RF: 0 oxycodone [OxyContin] 20 mg Tablet,Oral Only,Ext.Rel.12 Hr 20 mg PO Q12H Qty: 6 RF: 0 ferrous sulfate 325 mg (65 mg iron) Tablet 325 mg PO BID RF: 0 oxycodone 5 mg Tablet 5 mg PO Q4H PRN (Reason: Pain) RF: 0 venlafaxine 25 mg Tablet 37.5 mg PO DAILY RF: 0 prochlorperazine maleate 10 mg Tablet 10 mg PO Q8H PRN (Reason: Nausea) RF: 0 Discharge Orders: Discharge Order (Routine); Ordered 02/11/19 Ordered By: Hortencia Grant Admission Data Admit Date/Time: 02/02/19 14:37 Attending Provider: Parag Richard Admit Provider: Ryland Dial Primary Care Provider: Krishna Villanueva Other Providers: [facility] ; Ellis Machuca ; Parag Richard
[2019-02-11] MEDS: INSULIN ASPART SQ SCH (08:45)
[2019-02-11] MEDS: INSULIN DEGLUDEC 200 UNITS/ML PEN SQ SCH (08:45)
== END 2019-02-11 09:35 | DRG 689 ==
LOC: ED 09:33 → SUATTDRO 14:37 → 2N 14:37 → 3N 02-09 22:15

== ENCOUNTER 2019-07-11 18:14 | Inpatient (IN) ==
[2019-07-11] MEDS ORDERED: SODIUM CHLORIDE 0.9% 1000ML 1,000 ML IV STA (19:25)
[2019-07-11 20:05] LABS: Appearance Urine Turbid (Clear); Bacteria Urine Automated 4+ (Negative); Blood Urine 1+ (Negative); Color Urine Dark Yellow; Epithelial Cell Urine Auto >30 /lpf (0-5); Glucose Urine UA 2+ (Negative); Ketones Urine Negative (Negative); Leukocyte Esterase Urine 3+ (Negative); Nitrite Urine Positive (Negative); Protein Urine 2+ (Negative); RBC Urine Automated 0-4 /hpf (0-4); Specific Gravity Urine 1.019 (1.000-1.030); Urobilinogen Urine Negative (Negative); WBC Urine Automated >30 /hpf (0-5)
[2019-07-11 20:34] LABS: Bilirubin Urine 2+ (Negative)
[2019-07-11 20:36] LABS: Ictotest Urine Positive (Negative)
[2019-07-11 20:36] LABS: Basophils # (auto) 0.01 K/uL (0-0.2); Basophils % (auto) 0.1 %; Eosinophils # (auto) 0.01 K/uL (0-0.5); Eosinophils % (auto) 0.1 %; Hematocrit (blood only) 37.4 % (37-47); Hemoglobin 11.6 g/dL (12.0-16.0); Immature Granulocytes # (auto) 0.04 K/uL (0.00-0.02); Immature Granulocytes % (auto) 0.3 %; Lymphocytes # (auto) 1.03 K/uL (1.2-3.4); Mean Corpuscular Volume 90.1 fL (80-100); Mean Platelet Volume 12.1 fL (7.4-10.4); Monocytes # (auto) 0.92 K/uL (0.11-0.59); Monocytes % (auto) 7.2 %; Neutrophils # (auto) 10.83 K/uL (1.4-6.5); Neutrophils % (auto) 84.3 %; Platelet Count 146 K/uL (130-400); RDW Coefficient of Variation 16.3 % (11.5-14.5); RDW Standard Deviation 54.1 fL (36.4-46.3); Red Blood Count 4.15 M/uL (4.2-5.4); White Blood Count 12.84 K/uL (4.8-10.8)
--- NOTE | 2019-07-11 20:43 | Emergency Department Note ---
Impression & Plan Right sided abdominal pain, Elevated LFTs, Acute UTI (urinary tract infection), Jaundice ED Provider Note NAME: SIMEON RASMUSSEN AGE: 83 SEX: F ARRIVES VIA: Ambulance INFORMANT: [Patient] patient's daughter ED PROVIDER(S): Marco A Gan MD CHIEF COMPLAINT: Abdominal pain PLAN: Disposition: Admitted Condition: [Good] MEDICAL DECISION MAKING: Patient presented to the emergency department because abdominal pain. She had right-sided abdominal discomfort. She also had concerns for jaundice. The patient's daughter added that she was treated for a UTI twice with Levaquin however the patient's daughter was just notified at the time of ambulance arrival and that the Levaquin would not adequately treat the infection and Ceftin was recommended. The patient does have a leukocytosis and mild elevation of her bilirubin function. She has stable LFT elevation otherwise. Ammonia is negative. Urinalysis concerning for UTI. CT imaging does reveal her biliary stents in place as well as a mass in the liver. No other acute intra-abdominal findings noted. ECG did not reveal any acute findings. The patient was hydrated. She was given IV Rocephin. I discussed admission with the patient and daughter. They felt comfortable with the plan. Internal medicine was consulted. The patient was evaluated by Dr. Mccollum's team and admitted for further management. Triage Nursing notes reviewed and agree them. [Additional history obtained from] patient's daughter Vital Signs: reviewed and remarkable for [no significant abnormalities] Differential diagnosis: Appendicitis, ovarian cyst, ovarian torsion, ectopic , TOA, PID, infections, diverticulitis, UTI, obstruction, mesenteric ischemia, aortic pathology, inflammatory bowel disease, renal colic, PUD, pancreatitis, biliary pathology, hernia, volvulus, constipation, as well as other pathologies. Diagnostics interpreted by me: ECG: Rate: 94 Rhythm:Normal sinus [place]:Normal QRS:Normal ST segements:No elevation or depression Other:No PACs or PVCs Consultation(s): Internal medicine HPI: The patient is a 83 year old female who presents to the Emergency Room with complaints of right-sided abdominal pain. This started to worsen several days ago and is located in the right lower quadrant and radiates up to the right upper quadrant. The patient also notes the following associated symptoms, increased jaundice. The patient has found no relieving factors. Current pain is rated as 5/10. Patient has been using oxycodone for pain control. She has a liver mass. She is followed by GI. Pt denies LOC, headache, fevers, chills, diaphoresis, visual changes, neck pain, chest pain, breathing difficulties, nausea, vomiting, back pain, melena, hematochezia, urinary symptoms, numbness, weakness, or other complaints. ROS: See above HPI for pertinent positives & negatives. A total of [10] systems reviewed and were otherwise negative. PAST MEDICAL HISTORY:[See Below] reviewed in EMR PAST SURGICAL HISTORY:[See Below] FAMILY HISTORY:[See Below] SOCIAL HISTORY:[See Below] lives with family HOME MEDICATIONS:[See Below] ALLERGIES:[See Below] VITALS:[See Below] PHYSICAL EXAMINATION: GENERAL: Awake but tired, ill-appearing, in no distress HENT: Normocephalic, atraumatic. Oropharynx unremarkable. EYES: Normal conjunctiva. Sclera mildly-icteric. NECK: Inspection normal. Non-tender. Supple. No nuchal rigidity. FROM. No masses. RESPIRATORY: Clear to auscultation. No wheezes. No rales. Normal respiratory effort. CARDIAC: Normal rate. Normal rhythm. No murmurs. No rubs. Extremities warm and well perfused. Pulses equal. No JVD. GI: Soft, non-distended. Moderate right lower and mild right upper tenderness to palpation. No rebound or guarding. No masses. RECTAL: Deferred. MUSCULOSKELETAL: Atraumatic. Chest examination reveals no tenderness. The back is symmetrical on inspection without obvious abnormality. There is no CVA tenderness to palpation. No joint edema. LOWER EXTREMITIES: Calves are equal size bilaterally and non-tender. No edema. No discoloration. NEURO: Normal sensorium. No sensory or motor deficits noted. SKIN: No rash. Mild jaundice noted. ED COURSE: [Critical Care:] [None] Marco A Gan MD Past Med/Surg History Social History Preferred Language: Malaysian Communication Ability: Impaired Location Manager Required: No Beliefs That Will Affect Care: None marital status: / Current Living Situation: Family Current Living Situation Comment: Son and Daughter Feels Safe at Home: Yes Smoking Status: Former smoker Second Hand Exposure: No ; Hx Alcohol Use: No Hx Substance Use: No Allergies Allergies Allergy/AdvReac Type Severity Reaction Status Date / Time Iodinated Contrast Media Allergy Intermediate IV Verified 07/11/19 20:21 CONTRAST- HIVES Bactrim Allergy Unknown patient Verified 09/21/16 05:17 unsure Cipro Allergy Unknown unknown Verified 09/21/16 05:17 ciprofloxacin Allergy Unknown unknown Verified 07/11/19 20:21 nitrofurantoin Allergy Unknown unknown Verified 07/11/19 20:21 sulfamethoxazole Allergy Unknown patient Verified 07/11/19 20:21 unsure trimethoprim Allergy Unknown patient Verified 07/11/19 20:21 unsure acarbose AdvReac Mild GI SYMPTOMS Verified 07/11/19 20:21 azithromycin AdvReac Mild dizzy/nause Verified 07/11/19 20:21 a insulin glargine AdvReac Mild "Very ill" Verified 07/11/19 20:21 [From Lantus U-100 Insulin] - see comments metformin AdvReac Mild GI SYMPTOMS Verified 02/02/19 10:48 Penicillins AdvReac Mild dizzy, Verified 02/02/19 10:48 nausous (per patient) tolerated zosyn [id number] troglitazone AdvReac Mild GI SYMPTOMS Verified 02/02/19 10:48 Home Meds Home Medications Medication Instructions Recorded Confirmed carvedilol 6.25 mg PO BIDM 06/11/18 07/11/19 folic acid 1 mg PO DAILY 06/11/18 07/11/19 pantoprazole 40 mg PO QAM 06/11/18 07/11/19 Fiasp FlexTouch U-100 Insulin See Rx Instructions .ROUTE .COMPLEX 08/24/18 07/11/19 Tresiba FlexTouch U-200 22 unit SUBCUT QAM 08/24/18 07/11/19 aspirin [Aspirin Low Dose] 81 mg PO QAM 08/24/18 07/11/19 atorvastatin 40 mg PO DAILY 08/24/18 07/11/19 isosorbide mononitrate 30 mg PO DAILY 08/24/18 07/11/19 ferrous sulfate 325 mg PO BID 09/14/18 07/11/19 oxycodone 5 mg PO Q6 PRN 09/14/18 07/11/19 acetaminophen [Tylenol] 650 mg PO QID PRN 07/11/19 07/11/19 carbidopa-levodopa 1 tab PO TID 07/11/19 07/11/19 melatonin 3 mg PO HS PRN 07/11/19 07/11/19 nystatin 1 applic TOPICAL BID 07/11/19 07/11/19 ondansetron 4 mg PO TID PRN 07/11/19 07/11/19 pregabalin [Lyrica] 25 mg PO QAM 07/11/19 07/11/19 pregabalin [Lyrica] 50 mg PO HS 07/11/19 07/11/19 sennosides [Senokot] 17.2 mg PO HS 07/11/19 07/11/19 venlafaxine 37.5 mg PO DAILY 07/12/19 07/12/19 Previous Rx's Medication Instructions Recorded oxycodone [OxyContin] 20 mg PO Q12H #6 tab 08/29/18 nitroglycerin [Nitrostat] 0.4 mg SUBLINGUAL PRN PRN #30 tab 02/11/19 polyethylene glycol 3350 [Miralax] 17 g PO DAILY #30 ea 02/11/19 Results & Data (ED) Vital Signs Vital Signs - 24 hr 07/11/19 18:33 07/11/19 20:33 07/11/19 20:51 Temperature 37.1 C Temperature Source Oral Pulse Rate 96 H 96 H Pulse Rate from SpO2 Sensor 97 H Respiratory Rate 20 24 Blood Pressure 148/84 H 118/78 Blood Pressure Mean 105 93 Pulse Oximetry 96 96 96 Oxygen Delivery Method Room Air Room Air Room Air Sepsis Recent Fever Within 48 Hours No Sepsis New/Unexplained Change in Mental Status No Sepsis Action Taken by Nursing No Action Required 07/11/19 21:00 07/11/19 21:30 07/11/19 22:00 Temperature Temperature Source Pulse Rate 96 H 96 H 100 H Pulse Rate from SpO2 Sensor 93 H 95 H 97 H Respiratory Rate 21 23 24 Blood Pressure 125/62 105/55 L 136/68 Blood Pressure Mean 92 67 98 Pulse Oximetry 95 96 96 Oxygen Delivery Method Room Air Room Air Room Air Sepsis Recent Fever Within 48 Hours Sepsis New/Unexplained Change in Mental Status Sepsis Action Taken by Nursing 07/11/19 22:31 07/11/19 23:01 07/11/19 23:30 Temperature Temperature Source Pulse Rate 102 H 102 H 101 H Pulse Rate from SpO2 Sensor 100 H 92 H Respiratory Rate 24 20 23 Blood Pressure 138/72 157/53 H 100/62 Blood Pressure Mean 106 90 70 Pulse Oximetry 96 97 97 Oxygen Delivery Method Room Air Room Air Room Air Sepsis Recent Fever Within 48 Hours Sepsis New/Unexplained Change in Mental Status Sepsis Action Taken by Nursing Laboratory Data Result diagrams: 07/11/19 20:26 07/11/19 20:28 Lab Results 07/11/19 07/11/19 07/11/19 Range/Units 19:54 20:26 20:28 WBC 12.84 H (4.8-10.8) K/uL RBC 4.15 L (4.2-5.4) M/uL Hgb 11.6 L (12.0-16.0) g/dL Hct 37.4 (37-47) % MCV 90.1 (80-100) fL MCH 28.0 (25-34) pg MCHC 31.0 L (32-36) g/dL RDW Std Deviation 54.1 H (36.4-46.3) fL RDW Coeff of Cah 16.3 H (11.5-14.5) % Plt Count 146 (130-400) K/uL MPV 12.1 H (7.4-10.4) fL Immature Gran % (Auto) 0.3 % Neut % (Auto) 84.3 % Lymph % (Auto) 8.0 % [place] % (Auto) 7.2 % Eos % (Auto) 0.1 % Baso % (Auto) 0.1 % Immature Gran # (Auto) 0.04 H (0.00-0.02) K/uL Neut # (Auto) 10.83 H (1.4-6.5) K/uL Lymph # (Auto) 1.03 L (1.2-3.4) K/uL [place] # (Auto) 0.92 H (0.11-0.59) K/uL Eos # (Auto) 0.01 (0-0.5) K/uL Baso # (Auto) 0.01 (0-0.2) K/uL Sodium 130 L (136-145) mmol/L Potassium 4.2 (3.5-5.1) mmol/L Chloride 97 L (98-107) mmol/L Carbon Dioxide 29 (21-32) mmol/L Anion Gap 4.0 (3-11) BUN 20 H (7-18) mg/dl Creatinine 0.91 (0.6-1.2) mg/dl Est Cr Clr Drug Dosing 46.7 ml/min Est GFR ( Amer) 66.7 Est GFR (Non-Af Amer) 57.5 BUN/Creatinine Ratio 22.0 H (10-20) Glucose 228 H (70-99) mg/dl Calcium 8.9 (8.5-10.1) mg/dl Total Bilirubin 5.9 H (0.2-1) mg/dl AST 65 H (15-37) U/L ALT 8 L (12-78) U/L Alkaline Phosphatase 773 H (45-117) U/L Ammonia Total Protein 7.6 (6.4-8.2) gm/dl Albumin 2.6 L (3.4-5.0) gm/dl Globulin 5.0 H (2.5-4.0) gm/dl Albumin/Globulin Ratio 0.5 L (0.9-2) Lipase 91 (73-393) U/L Urine Color Dark Yellow Urine Appearance Turbid A (Clear) Urine pH 6.0 (4.5-7.5) Ur Specific [place] 1.019 (1.000-1.030) Urine Protein 2+ H (Negative) Urine Glucose (UA) 2+ H (Negative) Urine Ketones Negative (Negative) Urine Blood 1+ H (Negative) Urine Nitrite Positive A (Negative) Urine Bilirubin 2+ H (Negative) Urine Urobilinogen Negative (Negative) Ur Leukocyte Esterase 3+ H (Negative) Urine WBC (Auto) >30 H (0-5) /hpf Urine RBC (Auto) 0-4 (0-4) /hpf U Hyaline Cast (Auto) 0 (0-5) /lpf U Epithel Cells (Auto) >30 H (0-5) /lpf Urine Bacteria (Auto) 4+ H (Negative) Urine Yeast Not Reportable 07/11/19 07/11/19 Range/Units 20:31 21:59 WBC (4.8-10.8) K/uL RBC (4.2-5.4) M/uL Hgb (12.0-16.0) g/dL Hct (37-47) % MCV (80-100) fL MCH (25-34) pg MCHC (32-36) g/dL RDW Std Deviation (36.4-46.3) fL RDW Coeff of Cha (11.5-14.5) % Plt Count (130-400) K/uL MPV (7.4-10.4) fL Immature Gran % (Auto) % Neut % (Auto) % Lymph % (Auto) % [place] % (Auto) % Eos % (Auto) % Baso % (Auto) % Immature Gran # (Auto) (0.00-0.02) K/uL Neut # (Auto) (1.4-6.5) K/uL Lymph # (Auto) (1.2-3.4) K/uL [place] # (Auto) (0.11-0.59) K/uL Eos # (Auto) (0-0.5) K/uL Baso # (Auto) (0-0.2) K/uL Sodium (136-145) mmol/L Potassium (3.5-5.1) mmol/L Chloride (98-107) mmol/L Carbon Dioxide (21-32) mmol/L Anion Gap (3-11) BUN (7-18) mg/dl Creatinine (0.6-1.2) mg/dl Est Cr Clr Drug Dosing ml/min Est GFR ( Amer) Est GFR (Non-Af Amer) BUN/Creatinine Ratio (10-20) Glucose (70-99) mg/dl Calcium (8.5-10.1) mg/dl Total Bilirubin (0.2-1) mg/dl AST (15-37) U/L ALT (12-78) U/L Alkaline Phosphatase (45-117) U/L Ammonia Cancelled < 10.0 L Total Protein (6.4-8.2) gm/dl Albumin (3.4-5.0) gm/dl Globulin (2.5-4.0) gm/dl Albumin/Globulin Ratio (0.9-2) Lipase (73-393) U/L Urine Color Urine Appearance (Clear) Urine pH (4.5-7.5) Ur Specific [place] (1.000-1.030) Urine Protein (Negative) Urine Glucose (UA) (Negative) Urine Ketones (Negative) Urine Blood (Negative) Urine Nitrite (Negative) Urine Bilirubin (Negative) Urine Urobilinogen (Negative) Ur Leukocyte Esterase (Negative) Urine WBC (Auto) (0-5) /hpf Urine RBC (Auto) (0-4) /hpf U Hyaline Cast (Auto) (0-5) /lpf U Epithel Cells (Auto) (0-5) /lpf Urine Bacteria (Auto) (Negative) Urine Yeast Administered Medications Discontinued Medications Sodium Chloride (Nss 1000ml) 1,000 mls @ 125 mls/hr IV .Q8H STA Stop: 07/12/19 03:24 Last Infusion: 07/12/19 01:31 Dose: 0 mls/hr Documented by: [id number] Infusion: 07/11/19 23:08 Dose: 0 mls/hr Documented by: [id number] Admin: 07/11/19 20:49 Dose: 125 mls/hr Documented by: [id number] Sodium Chloride (Nss) 500 mls @ 999 mls/hr IV .Q31M ONE Stop: 07/11/19 23:20 Last Infusion: 07/11/19 23:37 Dose: 0 mls/hr Documented by: [id number] Admin: 07/11/19 23:08 Dose: 999 mls/hr Documented by: [id number] Ceftriaxone Sodium (Rocephin) 1,000 mg in 50 mls @ 100 mls/hr IV NOW STA Stop: 07/11/19 23:19 Last Infusion: 07/11/19 23:37 Dose: 0 mls/hr Documented by: [id number] Admin: 07/11/19 23:07 Dose: 100 mls/hr Documented by: [id number] Discharge Plan Visit Data *Final* Discharge Date/Time: 07/12/19 00:22 Chief Complaint: Abdominal Pain Stated Complaint: WEAKNESS ED Provider: Marco A Gan Discharge Problem: Right sided abdominal pain, Elevated LFTs, Acute UTI (urinary tract infection), Jaundice Patient Disposition: Admitted As Inpatient Discharge Instructions Interventions: ED Discharge Assessment Last Done: 07/12/19 00:22
--- NOTE | 2019-07-11 20:54 | CT Scan Report ---
CT SCAN OF THE ABDOMEN AND PELVIS WITHOUT CONTRAST CLINICAL HISTORY: right abd pain, liver mass COMPARISON STUDY: 02/04/2019 TECHNIQUE: CT scan of the abdomen and pelvis was performed from the lung bases to the proximal femurs . Images are reviewed in the axial, sagittal, and coronal planes. IV contrast was not administered fo r this examination. A dose lowering technique was utilized adhering to the principles of ALARA. CT DOSE: 912.78 mGy.cm FINDINGS: Lower chest: There are moderately extensive coronary artery calcifications. There is mild dependent a telectatic change. Liver: There is an enlarging 10 cm solid right lobe hepatic mass. There is intrahepatic biliary ducta l dilatation. Two Biliary enteric stents are visualized. The liver has a cirrhotic morphology. Gallbladder: Surgically absent Spleen: Normal in size and attenuation. Pancreas: Unremarkable. Adrenal glands: Unremarkable. Kidneys: No renal, ureteral, or bladder calculi are visualized. Bowel: There are no transition zones to indicate bowel obstruction. There is no evidence of acute div erticulitis. There are no findings to indicate acute appendicitis. There is mild fecal retention. Peritoneum: There is no intraperitoneal free air or abdominal ascites. Vasculature: The abdominal aorta is normal in course and caliber. Adenopathy: None. Pelvic viscera: There is mild pelvic floor relaxation. There are uterine calcifications. Skeletal structures: No destructive osseous lesions are seen. IMPRESSION: 1. Cirrhotic liver morphology. Enlarging right lobe hepatic mass measuring 10 cm. 2. Slight progression in the intrahepatic biliary ductal dilatation. Interval placement of 2 biliary enteric stents. 3. No evidence of bowel obstruction. No evidence of free air 4. No renal, ureteral, or bladder calculi identified 5. Mild fecal retention ACT 112: Negative or not required by law. Electronically signed by: Trpip Parks M.D. 07/11/2019 8:53 PM
[2019-07-11 20:57] LABS: Albumin Globulin Ratio 0.5 (0.9-2); Albumin Level 2.6 gm/dl (3.4-5.0); Bilirubin,Total 5.9 mg/dl (0.2-1); Calcium 8.9 mg/dl (8.5-10.1); Creatinine Clr Calc Pharmacy 46.7 ml/min; Est GFR (African American) 66.7; Est GFR (Non-African American) 57.5; Potassium 4.2 mmol/L (3.5-5.1); Total Protein 7.6 gm/dl (6.4-8.2)
[2019-07-11 21:07] LABS: Cast Urine Automated 0 /lpf (0-5)
[2019-07-11] MEDS ORDERED: SODIUM CHLORIDE 0.9% 500 ML IV ONE (22:50)
[2019-07-11] MEDS ORDERED: cefTRIAXone SODIUM 1,000 MG/50 ML BAG IV STA (22:50)
--- NOTE | 2019-07-11 23:35 | History & Physical Report ---
Date of Service July 11, 2019 Assessment & Plan (1) Acute UTI: Patient is an 83 year old female with PMHx Parkinsons Disease, CKD Stage 3, Colon Cancer, Liver Mass, AFib, and Chronic UTI's who presents with chief complaint of abdominal pain x2 weeks. ED Course: Ceftriaxone 1g IV, NSS 500ml bolus Acute UTI -Had been treated for twice with Levaquin, however, is Levaquin resistant -UA relatively dirty, with concerns for continued current UTI -Continue Ceftriaxone 1g QD Liver Mass -CT today noted enlarging R lobe hepatic mass measuring 10 cm and slight progression in intrahepatic biliary ductal dilatation. -Had 2 biliary stent placement by Dr. Machuca on 02/05/19 -Elevated LFTs likely secondary to intermittent hemobilia vs biliary stent occlusions -Per record review, patients liver mass secondary to Hepatocellular Carcinoma per Dr. Candelaria's [facility] -GI Dr. Machuca consulted Parkinson Disease -Continue Sinemet DM2 -SSI with Lantus 14u QD -Continue ASA -Hold Lipitor HTN -Continue Coreg -Continue Imdur Depression -Continue Venlafaxine Dispo: Med/Surg Tele FEN: NPO, NSS 100ml/hr DVT: SCDs, hold pharmaceutical until after evaluation by GI Code: Full (2) Liver mass: (3) Colon cancer: (4) Chronic kidney disease, stage 3a: (5) Parkinson disease: (6) Depression: (7) Diabetes mellitus, type 2: (8) Hypertension: History of Present Illness Chief Complaint: Abdominal Pain Primary Care Provider: Krishna Villanueva Patient is an 83 year old female with PMHx Parkinsons Disease, CKD Stage 3, Colon Cancer, Liver Mass, AFib, and Chronic UTI's who presents with chief complaint of abdominal pain x2 weeks. Patient notes that when her pain started 2 weeks ago it was a sharp stabbing pain in her abdominal RUQ rated 7/10. She notes that the pain comes and goes and that it typically worsens when eating. She also notes that she has been having increasingly worsening b/l LE weakness, but that it significantly worsened in the past 2 weeks. She notes that her legs "feel heavy" and that her knees buckle. She denies any changes in mentation, confusion, memory loss, fever, chills, dysuria, hematuria. She notes that she is currently not having any pain. Allergies Allergy/AdvReac Type Severity Reaction Status Date / Time Iodinated Contrast Media Allergy Intermediate IV Verified 07/11/19 20:21 CONTRAST- HIVES Bactrim Allergy Unknown patient Verified 09/21/16 05:17 unsure Cipro Allergy Unknown unknown Verified 09/21/16 05:17 ciprofloxacin Allergy Unknown unknown Verified 07/11/19 20:21 nitrofurantoin Allergy Unknown unknown Verified 07/11/19 20:21 sulfamethoxazole Allergy Unknown patient Verified 07/11/19 20:21 unsure trimethoprim Allergy Unknown patient Verified 07/11/19 20:21 unsure acarbose AdvReac Mild GI SYMPTOMS Verified 07/11/19 20:21 azithromycin AdvReac Mild dizzy/nause Verified 07/11/19 20:21 a insulin glargine AdvReac Mild "Very ill" Verified 07/11/19 20:21 [From Lantus U-100 Insulin] - see comments metformin AdvReac Mild GI SYMPTOMS Verified 02/02/19 10:48 Penicillins AdvReac Mild dizzy, Verified 02/02/19 10:48 nausous (per patient) tolerated zosyn [id number] troglitazone AdvReac Mild GI SYMPTOMS Verified 02/02/19 10:48 Home Medications Home Medications Medication Instructions Recorded Confirmed Type carvedilol 6.25 mg PO BIDM 06/11/18 07/11/19 History folic acid 1 mg PO DAILY 06/11/18 07/11/19 History pantoprazole 40 mg PO QAM 06/11/18 07/11/19 History Fiasp FlexTouch U-100 Insulin See Rx Instructions .ROUTE .COMPLEX 08/24/18 07/11/19 History Tresiba FlexTouch U-200 22 unit SUBCUT QAM 08/24/18 07/11/19 History aspirin [Aspirin Low Dose] 81 mg PO QAM 08/24/18 07/11/19 History atorvastatin 40 mg PO DAILY 08/24/18 07/11/19 History isosorbide mononitrate 30 mg PO DAILY 08/24/18 07/11/19 History oxycodone [OxyContin] 20 mg PO Q12H #6 tab 08/29/18 07/11/19 Rx ferrous sulfate 325 mg PO BID 09/14/18 07/11/19 History oxycodone 5 mg PO Q6 PRN 09/14/18 07/11/19 History nitroglycerin [Nitrostat] 0.4 mg SUBLINGUAL PRN PRN #30 tab 02/11/19 07/11/19 Rx polyethylene glycol 3350 [Miralax] 17 g PO DAILY #30 ea 02/11/19 07/11/19 Rx acetaminophen [Tylenol] 650 mg PO QID PRN 07/11/19 07/11/19 History carbidopa-levodopa 1 tab PO TID 07/11/19 07/11/19 History melatonin 3 mg PO HS PRN 07/11/19 07/11/19 History nystatin 1 applic TOPICAL BID 07/11/19 07/11/19 History ondansetron 4 mg PO TID PRN 07/11/19 07/11/19 History pregabalin [Lyrica] 25 mg PO QAM 07/11/19 07/11/19 History pregabalin [Lyrica] 50 mg PO HS 07/11/19 07/11/19 History sennosides [Senokot] 17.2 mg PO HS 07/11/19 07/11/19 History venlafaxine 37.5 mg PO DAILY 07/12/19 07/12/19 History Past Med/Surg History Medical History (Updated 07/12/19 @ 13:37 by Diego Burris MD) Atrial fibrillation (Chronic) "per old records" Cholangitis Chronic pain syndrome (Chronic) "arthritis + neuropathy" Common bile duct obstruction Coronary artery disease (Chronic) "s/p PCI ? Peculiar" Diabetes mellitus, type 2 (Chronic) Diabetic neuropathy (Chronic) GERD (gastroesophageal reflux disease) (Chronic) Hypertension (Chronic) Liver cancer Parkinson's disease (Chronic) Recurrent urinary tract infection (Chronic) Surgical History (Updated 07/12/19 @ 13:38 by Diego Burris MD) Hx of endoscopic retrograde cholangiopancreatography June [address] Status post cardiac catheterization (Chronic) Status post cholecystectomy (Chronic) Status post coronary artery stent placement (Chronic) Family History Other Myocardial infarction Social History Preferred Language: Spanish Communication Ability: Effective 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 Beliefs That Will Affect Care: None marital status: / Current Living Situation: Family Current Living Situation Comment: Son and Daughter Other Information That Helps Us Care for You: No Feels Safe at Home: No Is there a partner from a previous relationship who is making you feel unsafe now?: No Any Concerns about Your Family Situation: No Would You Like to Speak to Someone About Your Situation: No Safety Concerns: Feels Safe At This Time Smoking Status: Former smoker Do You Dip or Chew Tobacco: No ; Second Hand Exposure: No ; Tobacco Cessation Education Requested by Patient: No Hx Alcohol Use: No Hx Substance Use: No Review of Systems Constitutional: + weakness; no fever and no chills Eyes: no worsening vision Ear, Nose, Mouth, Throat: no dizziness Respiratory: + dyspnea on exertion; no cough and no dyspnea Cardiovascular: + dyspnea on exertion; no chest pain, no chest pain at rest, no radiating jaw, neck or arm pain, no edema and no calf pain Gastrointestinal: + abdominal pain; no nausea, no vomiting, no constipation and no diarrhea/loose stools Genitourinary: no dysuria, no urinary frequency, no urinary incontinence (althought patient was incontinent while in ED ), no hematuria and no flank pain Musculoskeletal: + muscle weakness (LE) Neurologic: + gait abnormality, + unsteadiness and + generalized weakness; no falls, no headache(s), no confusion and no memory loss Psychiatric: no behavioral changes Physical Exam Constitutional: well developed, well nourished and cooperative; no acute distress and not in distress Eyes: normal visual garg by confrontation, PERRL and EOM intact bilaterally; sclerae not anicteric ENMT: Ears: + hearing impairment (R worse than L ) Neck: trachea midline, no thyromegaly Respiratory: normal respiratory effort, lungs clear to auscultation Cardiovascular: RRR, no murmur, no edema Gastrointestinal (Abdomen): Inspection/Auscultation: abdomen normal to inspection and normal bowel sounds; abdomen not distended Percussion/Pal pation: + abdomen tender (slight TTP in RUQ ) and abdomen soft; abdomen not rigid and abdomen not firm Musculoskeletal: B/L UE 5/5 strength B/L LE 2-3/5 strength with R>L Skin: + jaundice Neurologic: PERRL, EOMI, accommodation nl, no face palsy, no dysarthria awake; not confused Was unable to test gait as patient noted she felt too weak. Psychiatric: A+Ox3, euthymic affect Eye Contact: + fair eye contact Results & Data Results & Data ([facility]) Vital Signs (Past 12 Hours) Vital Signs Temp Pulse Resp BP Pulse Ox 07/11/19 23:01 102 H 20 157/53 H 97 07/11/19 22:31 102 H 24 138/72 96 07/11/19 22:00 100 H 24 136/68 96 07/11/19 21:30 96 H 23 105/55 L 96 07/11/19 21:00 96 H 21 125/62 95 07/11/19 20:51 96 H 24 118/78 96 07/11/19 20:33 96 07/11/19 18:33 37.1 C 96 H 20 148/84 H 96 Supervising Physician Co-Signing Physician Notes Patient seen and examined, chart reviewed, case discussed with Dr. Vera and I agree with his assessment and plan as documented above. 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 Hypertension I10 Hypertension type: essential hypertension Resident Activity Tracking Resident Involvement: Resident Care Provided Care Provided: Adult Hospital Medicine (1) Diabetes mellitus, type 2 Diabetes mellitus complication status: with other specified complication Diabetes mellitus retirement insulin use: with keno terminal operator use Qualified Code(s): E11.69 - Type 2 diabetes mellitus with other specified complication; 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
[2019-07-12] MEDS ORDERED: DEXTROSE 50% 50 ML SYRINGE IV PRN (00:39)
[2019-07-12] MEDS ORDERED: GLUCOSE 10 TABS/TUBE PO PRN (00:39)
[2019-07-12] MEDS ORDERED: CARBOHYDRATES FOR HYPOGLYCEMIA PO PRN (00:39)
[2019-07-12] MEDS ORDERED: GLUCOSE 40% GEL 15 GM TUBE PO PRN (00:39)
[2019-07-12] MEDS ORDERED: GLUCAGON FOR INJ 1 MG VIAL SQ PRN (00:39)
[2019-07-12] MEDS: SODIUM CHLORIDE 0.9% 1000ML 1,000 ML IV SCH ×3 (02:36→22:59)
[2019-07-12] MEDS: INSULIN ASPART 100 UNITS/ML 3 ML PEN SC SCH ×2 (03:47→06:19)
[2019-07-12] MEDS ORDERED: MoRPHine SULFATE 2 MG/ML CARP IV STA (04:15)
[2019-07-12] MEDS ORDERED: ACETAMINOPHEN 500 MG TAB PO PRN (07:16)
[2019-07-12] MEDS: PANTOprazole 40 MG TAB PO SCH (07:23)
[2019-07-12] MEDS: VENLAFAXINE HCL XR 37.5 MG CAPXR PO SCH (07:23)
[2019-07-12] MEDS: FOLIC ACID 1 MG TAB PO SCH (07:23)
[2019-07-12] MEDS: carvediloL 6.25 MG TAB PO SCH ×2 (07:23→16:43)
[2019-07-12] MEDS: ISOSORBIDE MONO EXTENDED REL 30 MG TABCR PO SCH (07:23)
[2019-07-12] MEDS: CARBIDOPA/LEVODOPA 50/200MG EXT REL TAB PO SCH ×3 (07:24→21:02)
[2019-07-12] MEDS: FERROUS SULFATE 325 MG TAB PO SCH ×2 (07:24→16:43)
[2019-07-12] MEDS: ASPIRIN 81 MG ECTAB PO SCH (07:24)
[2019-07-12 08:13] LABS: Basophils # (auto) 0.01 K/uL (0-0.2); Basophils % (auto) 0.1 %; Eosinophils # (auto) 0.01 K/uL (0-0.5); Eosinophils % (auto) 0.1 %; Hematocrit (blood only) 37.9 % (37-47); Hemoglobin 11.8 g/dL (12.0-16.0); Immature Granulocytes # (auto) 0.03 K/uL (0.00-0.02); Immature Granulocytes % (auto) 0.3 %; Lymphocytes # (auto) 0.89 K/uL (1.2-3.4); Lymphocytes % (auto) 7.4 %; Mean Corpuscular Hemoglobin 28.1 pg (25-34); Mean Corpuscular Hgb Conc 31.1 g/dL (32-36); Mean Corpuscular Volume 90.2 fL (80-100); Mean Platelet Volume 13.1 fL (7.4-10.4); Monocytes # (auto) 0.82 K/uL (0.11-0.59); Monocytes % (auto) 6.9 %; Neutrophils % (auto) 85.2 %; Platelet Count 129 K/uL (130-400); Platelet Estimate Decreased (Normal); RDW Coefficient of Variation 16.6 % (11.5-14.5); RDW Standard Deviation 54.3 fL (36.4-46.3); White Blood Count 11.96 K/uL (4.8-10.8)
[2019-07-12 08:19] LABS: Albumin Globulin Ratio 0.5 (0.9-2); Albumin Level 2.3 gm/dl (3.4-5.0); BUN Creatinine Ratio 20.6 (10-20); Bilirubin,Total 7.6 mg/dl (0.2-1); Calcium 8.8 mg/dl (8.5-10.1); Creatinine Clr Calc Pharmacy 54.6 ml/min; Est GFR (African American) 74.5; Est GFR (Non-African American) 64.3; Globulin 4.8 gm/dl (2.5-4.0); Potassium 3.6 mmol/L (3.5-5.1); Total Protein 7.1 gm/dl (6.4-8.2)
[2019-07-12] MEDS ORDERED: INSULIN GLARGINE SOLOSTAR 100 UNITS/ML 3 ML PEN SC SCH (09:00)
[2019-07-12] MEDS ORDERED: ENOXAPARIN INJ 30 MG/0.3 ML SYR SQ SCH (09:00)
[2019-07-12] MEDS ORDERED: ATORVASTATIN 40 MG TAB PO SCH (09:00)
[2019-07-12] MEDS: PREGABALIN 25 MG CAP PO SCH (09:03)
[2019-07-12] MEDS: INSULIN DEGLUDEC 200 UNIT/ML SQ SCH (10:05)
[2019-07-12] MEDS: LACTATED RINGER'S 1,000 ML IV SCH ×2 (11:41→16:42)
[2019-07-12] MEDS ORDERED: MIDODRINE HCL 2.5 MG TAB PO SCH (12:00)
[2019-07-12 12:08] LABS: HCO3 ABG 25 mmol/L (19-24); Oxygen Saturation ABG 97.4 % (90-95); PCO2 ABG 35 mmHg (35-46); PO2 ABG 91 mmHg (80-95); pH ABG 7.46 (7.35-7.45)
[2019-07-12] MEDS: INSULIN ASPART 100 UNIT/ML SQ SCH ×2 (12:09→17:04)
[2019-07-12] MEDS ORDERED: CEFEPIME 2,000 MG in SYRINGE 7.5 ML IV SCH (12:15)
[2019-07-12] MEDS ORDERED: metroNIDAZOLE 500 MG/100 ML BAG IV SCH (12:15)
[2019-07-12] MEDS ORDERED: NORMOSOL-R 1,000 ML IV ONE (12:19)
[2019-07-12] MEDS ORDERED: IMIPENEM/CILASTATIN CONSULT ACTIVE PRN (12:19)
[2019-07-12] MEDS ORDERED: ALBUMIN 25% 50 ML IV ONE (12:19)
--- NOTE | 2019-07-12 12:21 | Critical Care Consultation ---
Date of Consultation July 12, 2019 Assessment & Plan (1) Acute UTI (urinary tract infection): Impression: 83-year-old female with multiple medical comorbidities outlined in her H&P. Most significantly, the patient is currently undergoing therapy for hepatocellular carcinoma and her repeat imaging appears to demonstrate progression of disease despite therapy. She also has underlying Parkinson's disease. She was admitted with abdominal pain of unclear etiology. Unclear if this could be related to her stents. She also was found to have a urinary tract infection. She had hypotension on the floor which appears to be resolving with IV fluid administration. This may be associated with early sepsis, autonomic dysfunction related to her Parkinson's disease, or medication effects. In any event, the patient appears to be responding appropriately to IV fluids. Recommendations: 1. I discussed with the patient at bedside that given her advanced medical problems I am not sure that aggressive measures to include CPR, defibrillation, intubation and mechanical ventilation and vasoactive pressor medications would significantly improve her quality or quantity of life. I am not sure the patient has cognitive abilities to understand however she states that she would want CPR and mechanical ventilation in the event that this should be necessary. I again think it would be most appropriate to engage palliative care with the patient and with her family members to review her current medical condition including the advancing hepatic malignancy and determine overall goals of care in this 83-year-old patient. At this point in time I do not believe that she requires ICU level care she appears to be responding to IV fluids. We will continue to blow his fluids and administer albumin to try and improve colloid filling pressures. Lactate has been ordered and is currently pending. Given the resistant Pseudomonas isolated in the past, would not recommend Rocephin for UTI at this point in time. Per report fluoroquinolones were also not an option. Until the gram-negative is doug ntified, would recommend ertapenem/imipenem for potential resistant organism coverage. Continuing the patient's Parkinson's medications for potential autonomic deficiency would be reasonable. Should the patient fail to respond to conservative measures and resuscitation as noted above and the patient and her family desire aggressive medical intervention to include vasopressor agents, would be happy to reevaluate this patient. Case was discussed with the attending hospitalist at the bedside as well as with the bedside nurse. (2) Elevated LFTs: (3) Jaundice: History of Present Illness Attending Physician: Lokesh Alonso History of Present Illness Contacted by the hospitalist to evaluate this patient with hypotension and potential sepsis. History is obtained from review the electronic medical record and discussion with patient. Patient is an 83-year-old female with a history of hepatic carcinoma as well as colon carcinoma and Parkinson's disease who was brought to the emergency room yesterday due to abdominal pain. Patient was admitted back in February and had an ERCP. At that point time she had bare-metal stents placed due to significant strictures of the bile duct due to tumor. She apparently is followed in the oncology clinic at [facility]. Patient's chief complaint in the emergency room yesterday was abdominal pain. She does have a history of Pseudomonas urinary tract infection. It is unclear if she has had outpatient follow-up with gastroenterology prior to her stents placement. She completed of some significant weakness. She was found to have a urinary tract infection in the emergency room. She had apparently been treated with Levaquin in the outpatient setting and was transitioned to Rocephin. CT imaging in the emergency room demonstrated an enlarging right hepatic mass with progression of the ductal dilatation. The patient was treated with Rocephin and admitted to the hospitalist service. The patient apparently been hypertensive overnight. This morning nursing gave the patient her normal antihypertensive medications at which point time she developed some dizziness and lightheadedness and return to bed. Repeat blood pressure showed systolic blood pressures in the 70s. I was subsequently contacted by the hospitalist to evaluate the patient for ICU admission. I presented to the floor to evaluate the patient. She is jaundiced and pale. She does not appear in any acute distress but mentation does appear somewhat s lowed. She had received about a 250 cc saline bolus with improvement in her blood pressure up to 90 systolic. She was not complaining of any chest pain or palpitations. She is not complaining of abdominal pain on my evaluation and states that her only problem now is some intermittent leg pain. Patient was evaluated by the palliative care service back in February to try and determine goals of therapy. Based on review of their notes, it does not appear that any significant decisions were made at that time. The patient apparently has completed 2 course of levofloxacin in the outpatient setting for urinary tract infection however according to the ER notes, family members were notified that levofloxacin would not treat the infection and Ceftin was recommended. We do not have culture data or sensitivity data from recent urinalysis. Allergies Allergy/AdvReac Type Severity Reaction Status Date / Time Iodinated Contrast Media Allergy Intermediate IV Verified 07/11/19 20:21 CONTRAST- HIVES Bactrim Allergy Unknown patient Verified 09/21/16 05:17 unsure Cipro Allergy Unknown unknown Verified 09/21/16 05:17 ciprofloxacin Allergy Unknown unknown Verified 07/11/19 20:21 nitrofurantoin Allergy Unknown unknown Verified 07/11/19 20:21 sulfamethoxazole Allergy Unknown patient Verified 07/11/19 20:21 unsure trimethoprim Allergy Unknown patient Verified 07/11/19 20:21 unsure acarbose AdvReac Mild GI SYMPTOMS Verified 07/11/19 20:21 azithromycin AdvReac Mild dizzy/nause Verified 07/11/19 20:21 a insulin glargine AdvReac Mild "Very ill" Verified 07/11/19 20:21 [From Lantus U-100 Insulin] - see comments metformin AdvReac Mild GI SYMPTOMS Verified 02/02/19 10:48 Penicillins AdvReac Mild dizzy, Verified 02/02/19 10:48 nausous (per patient) tolerated zosyn [id number] troglitazone AdvReac Mild GI SYMPTOMS Verified 02/02/19 10:48 Home Medications Home Medications Medication Instructions Recorded Confirmed Type carvedilol 6.25 mg PO BIDM 06/11/18 07/11/19 History folic acid 1 mg PO DAILY 06/11/18 07/11/19 History pantoprazole 40 mg PO QAM 06/11/18 07/11/19 History Fiasp FlexTouch U-100 Insulin See Rx Instructions .ROUTE .COMPLEX 08/24/1806/24 History Tresiba FlexTouch U-200 22 unit SUBCUT QAM 08/24/18 07/11/19 History aspirin [Aspirin Low Dose] 81 mg PO QAM 08/24/18 07/11/19 History atorvastatin 40 mg PO DAILY 08/24/18 07/11/19 History isosorbide mononitrate 30 mg PO DAILY 08/24/18 07/11/19 History oxycodone [OxyContin] 20 mg PO Q12H #6 tab 08/29/18 07/11/19 Rx ferrous sulfate 325 mg PO BID 09/14/18 07/11/19 History oxycodone 5 mg PO Q6 PRN 09/14/18 07/11/19 History nitroglycerin [Nitrostat] 0.4 mg SUBLINGUAL PRN PRN #30 tab 02/11/19 07/11/19 Rx polyethylene glycol 3350 [Miralax] 17 g PO DAILY #30 ea 02/11/19 07/11/19 Rx acetaminophen [Tylenol] 650 mg PO QID PRN 07/11/19 07/11/19 History carbidopa-levodopa 1 tab PO TID 07/11/19 07/11/19 History melatonin 3 mg PO HS PRN 07/11/19 07/11/19 History nystatin 1 applic TOPICAL BID 07/11/19 07/11/19 History ondansetron 4 mg PO TID PRN 07/11/19 07/11/19 History pregabalin [Lyrica] 25 mg PO QAM 07/11/19 07/11/19 History pregabalin [Lyrica] 50 mg PO HS 07/11/19 07/11/19 History sennosides [Senokot] 17.2 mg PO HS 07/11/19 07/11/19 History venlafaxine 37.5 mg PO DAILY 07/12/19 07/12/19 History Patient History Social History Preferred Language: Estonian Communication Ability: Effective 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 Beliefs That Will Affect Care: None marital status: / Current Living Situation: Family Current Living Situation Comment: Son and Daughter Other Information That Helps Us Care for You: No Feels Safe at Home: No Is there a partner from a previous relationship who is making you feel unsafe now?: No Any Concerns about Your Family Situation: No Would You Like to Speak to Someone About Your Situation: No Safety Concerns: Feels Safe At This Time Smoking Status: Former smoker Do You Dip or Chew Tobacco: No ; Second Hand Exposure: No ; Tobacco Cessation Education Requested by Patient: No Hx Alcohol Use: No Hx Substance Use: No Review of Systems Review of Systems: Please refer to admission H&P. I have no additions or details Physical Exam Constitutional: + frail appearing; no acute distress Eyes: PERRL; sclerae not anicteric Neck: trachea midline, no thyromegaly Respiratory: normal respiratory effort, lungs clear to auscultation Cardiovascular: Rate/Rhythm: regular rate; not tachycardic Heart Sounds: normal S1 and normal S2; no murmur Gastrointestinal (Abdomen): normal bowel sounds, soft, nontender, no hepatosplenomegaly Skin: Multiple petechiae and ecchymoses Results & Data Results & Data ([facility]) Vital Signs (Past 12 Hours) Vital Signs Temp Pulse Resp BP BP Pulse Ox 07/12/19 11:34 36.6 C 73 18 77/42 L 76/45 L 96 07/12/19 08:48 36.9 C 91 H 18 94/60 L 95 07/12/19 07:22 37.7 C H 102 H 20 158/81 H 95 07/12/19 07:02 38.4 C H 119 H 18 179/84 H 95 07/12/19 00:45 37.0 C 101 H 19 127/75 98 Laboratory Results 07/12/19 07:17 07/12/19 07:17 Total bili up to 7.6 from 1.0 back in February. AST and ALT unremarkable. Alk phos 671. Ammonia less than 10 Albumin 2.3 Prior urine culture from January demonstrated Pseudomonas resistant to cefepime ceftaz edema and aztreonam. Diagnostic Findings CT of the abdomen independently reviewed. CT SCAN OF THE ABDOMEN AND PELVIS WITHOUT CONTRAST CLINICAL HISTORY: right abd pain, liver mass COMPARISON STUDY: 02/04/2019 TECHNIQUE: CT scan of the abdomen and pelvis was performed from the lung bases to the proximal femurs. Images are reviewed in the axial, sagittal, and coronal planes. IV contrast was not administered for this examination. A dose lowering technique was utilized adhering to the principles of ALARA. CT DOSE: 912.78 mGy.cm FINDINGS: Lower chest: There are moderately extensive coronary artery calcifications. There is mild dependent atelectatic change. Liver: There is an enlarging 10 cm solid right lobe hepatic mass. There is intrahepatic biliary ductal dilatation. Two Biliary enteric stents are visualized. The liver has a cirrhotic morphology. Gallbladder: Surgically absent Spleen: Normal in size and attenuation. Pancreas: Unremarkable. Adrenal glands: Unremarkable. Kidneys: No renal, ureteral, or bladder calculi are visualized. Bowel: There are no transition zones to indicate bowel obstruction. There is no evidence of acute diverticulitis. There are no findings to indicate acute appendicitis. There is mild fecal retention. Peritoneum: There is no intraperitoneal free air or abdominal ascites. Vasculature: The abdominal aorta is normal in course and caliber. Adenopathy: None. Pelvic viscera: There is mild pelvic floor relaxation. There are uterine calcifications. Skeletal structures: No destructive osseous lesions are seen. IMPRESSION: 1. Cirrhotic liver morphology. Enlarging right lobe hepatic mass measuring 10 cm. 2. Slight progression in the intrahepatic biliary ductal dilatation. Interval placement of 2 biliary enteric stents. 3. No evidence of bowel obstruction. No evidence of free air 4. No renal, ureteral, or bladder calculi identified 5. Mild fecal retention Coding Level of Care Code Critical Care 1st 30-74 mins Diagnoses Acute UTI (urinary tract infection) N39.0 Elevated LFTs R79.89 Jaundice R17 Time Spent (min) 40 Comment 40 minutes critical care time evaluating managing and stabilizing patient on the floor including discussion with hospitalists.
[2019-07-12] MEDS ORDERED: LEVOFLOXACIN/D5W 750 MG/150 ML BAG IV SCH (12:30)
[2019-07-12] MEDS ORDERED: IMIPENEM/CILASTATIN SODIUM 250 MG in DEXTROSE 5% 100 ML IV SCH (12:30)
[2019-07-12 13:01] LABS: Allen Test Pos (Pos)
[2019-07-12 13:07] LABS: INR 1.1 (0.9-1.1); Partial Thromboplastin Ratio 1.1; Partial Thromboplastin Time 29.6 Seconds (21.0-31.0); Prothrombin Time 11.7 Seconds (9.0-12.0)
--- NOTE | 2019-07-12 13:08 | XRay Report ---
SINGLE VIEW CHEST CLINICAL HISTORY: Sepsis. FINDINGS: An AP, portable, upright chest radiograph is compared to study dated 02/02/2019 and correla dayanna with chest CT dated 02/04/2019. The examination is degraded by portable technique and patient rot ation. The heart is enlarged noting atherosclerotic calcification of the thoracic aorta. The pulmona ry vasculature is noncongested. Chronic interstitial thickening is similar to previous. There is biba silar atelectasis. No airspace consolidation or large pleural effusion is identified. No pneumothorax is seen. The skeletal structures are osteopenic. The bony thorax is grossly intact. IMPRESSION: Cardiomegaly with no active disease in the chest. ACT 112: Negative or not required by law. Electronically signed by: Mario Thomas M.D. 07/12/2019 1:06 PM
[2019-07-12 13:12] LABS: Albumin Level 1.9 gm/dl (3.4-5.0); BUN Creatinine Ratio 21.3 (10-20); Calcium 8.2 mg/dl (8.5-10.1); Creatinine Clr Calc Pharmacy 47.7 ml/min; Est GFR (African American) 63.3; Est GFR (Non-African American) 54.6; Magnesium 1.5 mg/dl (1.8-2.4); Potassium 3.9 mmol/L (3.5-5.1)
--- NOTE | 2019-07-12 13:19 | Gastrointestinal Consultation ---
Date of Consultation July 12, 2019 Assessment & Plan (1) Jaundice: Needs ERCP to evaluate for stent occlusion. Daughter agrees. Continue ABx. (2) Elevated LFTs: (3) Cholangitis: History of Present Illness Attending Physician: Lokesh Alonso 83 years old female patient with advanced stage HCC, admitted with sepsis, has UTI and elevated LFTs with suspected cholangitis. Six months ago I placed 2 uncovered biliary metal stents for hilar stricture caused by a large right hepatic lobe mass. He LFTs were normal since then. She is awake and alert however her BP is borderline low. I spoke to her daughter Devin who knows her mother is terminal however she would like us to continue full care as needed. Allergies Allergy/AdvReac Type Severity Reaction Status Date / Time Iodinated Contrast Media Allergy Intermediate IV Verified 07/11/19 20:21 CONTRAST- HIVES Bactrim Allergy Unknown patient Verified 09/21/16 05:17 unsure Cipro Allergy Unknown unknown Verified 09/21/16 05:17 ciprofloxacin Allergy Unknown unknown Verified 07/11/19 20:21 nitrofurantoin Allergy Unknown unknown Verified 07/11/19 20:21 sulfamethoxazole Allergy Unknown patient Verified 07/11/19 20:21 unsure trimethoprim Allergy Unknown patient Verified 07/11/19 20:21 unsure acarbose AdvReac Mild GI SYMPTOMS Verified 07/11/19 20:21 azithromycin AdvReac Mild dizzy/nause Verified 07/11/19 20:21 a insulin glargine AdvReac Mild "Very ill" Verified 07/11/19 20:21 [From Lantus U-100 Insulin] - see comments metformin AdvReac Mild GI SYMPTOMS Verified 02/02/19 10:48 Penicillins AdvReac Mild dizzy, Verified 02/02/19 10:48 nausous (per patient) tolerated zosyn [id number] troglitazone AdvReac Mild GI SYMPTOMS Verified 02/02/19 10:48 Home Medications Home Medications Medication Instructions Recorded Confirmed Type carvedilol 6.25 mg PO BIDM 06/11/18 07/11/19 History folic acid 1 mg PO DAILY 06/11/18 07/11/19 History pantoprazole 40 mg PO QAM 06/11/18 07/11/19 History Fiasp FlexTouch U-100 Insulin See Rx Instructions .ROUTE .COMPLEX 08/24/18 07/11/19 History Tresiba FlexTouch U-200 22 unit SUBCUT QAM 08/24/18 07/11/19 History aspirin [Aspirin Low Dose] 81 mg PO QAM 08/24/18 07/11/19 History atorvastatin 40 mg PO DAILY 08/24/18 07/11/19 History isosorbide mononitrate 30 mg PO DAILY 08/24/18 07/11/19 History oxycodone [OxyContin] 20 mg PO Q12H #6 tab 08/29/18 07/11/19 Rx ferrous sulfate 325 mg PO BID 09/14/18 07/11/19 History oxycodone 5 mg PO Q6 PRN 09/14/18 07/11/19 History nitroglycerin [Nitrostat] 0.4 mg SUBLINGUAL PRN PRN #30 tab 02/11/19 07/11/19 Rx polyethylene glycol 3350 [Miralax] 17 g PO DAILY #30 ea 02/11/19 07/11/19 Rx acetaminophen [Tylenol] 650 mg PO QID PRN 07/11/19 07/11/19 History carbidopa-levodopa 1 tab PO TID 07/11/19 07/11/19 History melatonin 3 mg PO HS PRN 07/11/19 07/11/19 History nystatin 1 applic TOPICAL BID 07/11/19 07/11/19 History ondansetron 4 mg PO TID PRN 07/11/19 07/11/19 History pregabalin [Lyrica] 25 mg PO QAM 07/11/19 07/11/19 History pregabalin [Lyrica] 50 mg PO HS 07/11/19 07/11/19 History sennosides [Senokot] 17.2 mg PO HS 07/11/19 07/11/19 History venlafaxine 37.5 mg PO DAILY 07/12/19 07/12/19 History Patient History Social History Preferred Language: German 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 Beliefs That Will Affect Care: None marital status: / Current Living Situation: Family Current Living Situation Comment: Son and Daughter Other Information That Helps Us Care for You: No Feels Safe at Home: No Is there a partner from a previous relationship who is making you feel unsafe now?: No Any Concerns about Your Family Situation: No Would You Like to Speak to Someone About Your Situation: No Safety Concerns: Feels Safe At This Time Smoking Status: Former smoker Do You Dip or Chew Tobacco: No ; Second Hand Exposure: No ; Tobacco Cessation Education Requested by Patient: No Hx Alcohol Use: No Hx Substance Use: No Review of Systems Constitutional: + fever and + chills; no fatigue and no weight loss Eyes: no eye pain and no worsening vision Ear, Nose, Mouth, Throat: no tinnitus, no dizziness, no nasal discharge and no epistaxis Respiratory: no cough, no dyspnea, no dyspnea on exertion and no wheezing Cardiovascular: no chest pain, no orthopnea, no palpitations and no edema Gastrointestinal: as per Subjective / HPI Genitourinary: + dysuria; no urinary frequency, no urinary incontinence and no hematuria Musculoskeletal: no stiffness and no myalgia Neurologic: no localized weakness, no paralysis, no tremor(s) and no headache(s) Endocrine: no polydipsia and no polyuria Hematologic / Lymphatic: no easy bleeding and no night sweats Physical Exam Constitutional: comfortable; no acute distress Respiratory: normal respiratory effort, lungs clear to auscultation Cardiovascular: RRR, no murmur, no edema Gastrointestinal (Abdomen): normal bowel sounds, soft, nontender, no hepatosplenomegaly Results & Data ([facility]) Vital Signs (Past 12 Hours) Vital Signs Temp Pulse Resp BP BP Pulse Ox 07/12/19 13:00 36.4 C L 85/50 L 98 07/12/19 12:04 90/50 L 07/12/19 11:34 36.6 C 73 18 77/42 L 76/45 L 96 07/12/19 08:48 36.9 C 91 H 18 94/60 L 95 07/12/19 07:22 37.7 C H 102 H 20 158/81 H 95 07/12/19 07:02 38.4 C H 119 H 18 179/84 H 95 Laboratory Results Laboratory Results - last 24 hr 07/11/19 07/11/19 07/11/19 19:54 20:26 20:28 WBC 12.84 H RBC 4.15 L Hgb 11.6 L Hct 37.4 MCV 90.1 MCH 28.0 MCHC 31.0 L RDW Std Deviation 54.1 H RDW Coeff of Cha 16.3 H Plt Count 146 MPV 12.1 H Immature Gran % (Auto) 0.3 Neut % (Auto) 84.3 Lymph % (Auto) 8.0 Sterling % (Auto) 7.2 Eos % (Auto) 0.1 Baso % (Auto) 0.1 Immature Gran # (Auto) 0.04 H Neut # (Auto) 10.83 H Lymph # (Auto) 1.03 L Sterling # (Auto) 0.92 H Eos # (Auto) 0.01 Baso # (Auto) 0.01 Platelet Estimate PT INR APTT PTT Ratio ABG pH ABG pCO2 ABG pO2 ABG HCO3 ABG O2 Saturation ABG Base Excess Helio Test Barometric Pressure Oxygen Given Sodium 130 L Potassium 4.2 Chloride 97 L Carbon Dioxide 29 Anion Gap 4.0 BUN 20 H Creatinine 0.91 Est Cr Clr Drug Dosing 46.7 Est GFR ( Amer) 66.7 Est GFR (Non-Af Amer) 57.5 BUN/Creatinine Ratio 22.0 H Glucose 228 H POC Glucose Lactate Calcium 8.9 Magnesium Total Bilirubin 5.9 H AST 65 H ALT 8 L Alkaline Phosphatase 773 H Ammonia Total Protein 7.6 Albumin 2.6 L Globulin 5.0 H Albumin/Globulin Ratio 0.5 L Lipase 91 Procalcitonin Urine Color Dark Yellow Urine Appearance Turbid A Urine pH 6.0 Ur Specific [place] 1.019 Urine Protein 2+ H Urine Glucose (UA) 2+ H Urine Ketones Negative Urine Blood 1+ H Urine Nitrite Positive A Urine Bilirubin 2+ H Urine Urobilinogen Negative Ur Leukocyte Esterase 3+ H Urine WBC (Auto) >30 H Urine RBC (Auto) 0-4 U Hyaline Cast (Auto) 0 U Epithel Cells (Auto) >30 H Urine Bacteria (Auto) 4+ H Urine Yeast Not Reportable 07/11/19 07/11/19 07/12/19 20:31 21:59 01:57 WBC RBC Hgb Hct MCV MCH MCHC RDW Std Deviation RDW Coeff of Cha Plt Count MPV Immature Gran % (Auto) Neut % (Auto) Lymph % (Auto) Sterling % (Auto) Eos % (Auto) Baso % (Auto) Immature Gran # (Auto) Neut # (Auto) Lymph # (Auto) Sterling # (Auto) Eos # (Auto) Baso # (Auto) Platelet Estimate PT INR APTT PTT Ratio ABG pH ABG pCO2 ABG pO2 ABG HCO3 ABG O2 Saturation ABG Base Excess Helio Test Barometric Pressure Oxygen Given Sodium Potassium Chloride Carbon Dioxide Anion Gap BUN Creatinine Est Cr Clr Drug Dosing Est GFR ( Amer) Est GFR (Non-Af Amer) BUN/Creatinine Ratio Glucose POC Glucose 198 H Lactate Calcium Magnesium Total Bilirubin AST ALT Alkaline Phosphatase Ammonia Cancelled < 10.0 L Total Protein Albumin Globulin Albumin/Globulin Ratio Lipase Procalcitonin Urine Color Urine Appearance Urine pH Ur Specific [place] Urine Protein Urine Glucose (UA) Urine Ketones Urine Blood Urine Nitrite Urine Bilirubin Urine Urobilinogen Ur Leukocyte Esterase Urine WBC (Auto) Urine RBC (Auto) U Hyaline Cast (Auto) U Epithel Cells (Auto) Urine Bacteria (Auto) Urine Yeast 07/12/19 07/12/19 07/12/19 06:09 07:17 07:17 WBC 11.96 H RBC 4.20 Hgb 11.8 L Hct 37.9 MCV 90.2 MCH 28.1 MCHC 31.1 L RDW Std Deviation 54.3 H RDW Coeff of Cha 16.6 H Plt Count 129 L MPV 13.1 H Immature Gran % (Auto) 0.3 Neut % (Auto) 85.2 Lymph % (Auto) 7.4 Sterling % (Auto) 6.9 Eos % (Auto) 0.1 Baso % (Auto) 0.1 Immature Gran # (Auto) 0.03 H Neut # (Auto) 10.20 H Lymph # (Auto) 0.89 L Sterling # (Auto) 0.82 H Eos # (Auto) 0.01 Baso # (Auto) 0.01 Platelet Estimate Decreased L PT INR APTT PTT Ratio ABG pH ABG pCO2 ABG pO2 ABG HCO3 ABG O2 Saturation ABG Base Excess Helio Test Barometric Pressure Oxygen Given Sodium 134 L Potassium 3.6 Chloride 102 Carbon Dioxide 26 Anion Gap 6.0 BUN 17 Creatinine 0.83 Est Cr Clr Drug Dosing 54.6 Est GFR ( Amer) 74.5 Est GFR (Non-Af Amer) 64.3 BUN/Creatinine Ratio 20.6 H Glucose 140 H POC Glucose 156 H Lactate Calcium 8.8 Magnesium Total Bilirubin 7.6 H AST 64 H ALT 22 Alkaline Phosphatase 671 H Ammonia Total Protein 7.1 Albumin 2.3 L Globulin 4.8 H Albumin/Globulin Ratio 0.5 L Lipase Procalcitonin Urine Color Urine Appearance Urine pH Ur Specific [place] Urine Protein Urine Glucose (UA) Urine Ketones Urine Blood Urine Nitrite Urine Bilirubin Urine Urobilinogen Ur Leukocyte Esterase Urine WBC (Auto) Urine RBC (Auto) U Hyaline Cast (Auto) U Epithel Cells (Auto) Urine Bacteria (Auto) Urine Yeast 07/12/19 07/12/19 07/12/19 07:28 11:39 11:54 WBC RBC Hgb Hct MCV MCH MCHC RDW Std Deviation RDW Coeff of Cha Plt Count MPV Immature Gran % (Auto) Neut % (Auto) Lymph % (Auto) Sterling % (Auto) Eos % (Auto) Baso % (Auto) Immature Gran # (Auto) Neut # (Auto) Lymph # (Auto) Sterling # (Auto) Eos # (Auto) Baso # (Auto) Platelet Estimate PT INR APTT PTT Ratio ABG pH ABG pCO2 ABG pO2 ABG HCO3 ABG O2 Saturation ABG Base Excess Helio Test Barometric Pressure Oxygen Given Sodium Potassium Chloride Carbon Dioxide Anion Gap BUN Creatinine Est Cr Clr Drug Dosing Est GFR ( Amer) Est GFR (Non-Af Amer) BUN/Creatinine Ratio Glucose POC Glucose 154 H 137 H Lactate 1.3 Calcium Magnesium Total Bilirubin AST ALT Alkaline Phosphatase Ammonia Total Protein Albumin Globulin Albumin/Globulin Ratio Lipase Procalcitonin Urine Color Urine Appearance Urine pH Ur Specific [place] Urine Protein Urine Glucose (UA) Urine Ketones Urine Blood Urine Nitrite Urine Bilirubin Urine Urobilinogen Ur Leukocyte Esterase Urine WBC (Auto) Urine RBC (Auto) U Hyaline Cast (Auto) U Epithel Cells (Auto) Urine Bacteria (Auto) Urine Yeast 07/12/19 07/12/19 07/12/19 11:54 12:35 12:35 WBC Pending RBC Pending Hgb Pending Hct Pending MCV Pending MCH Pending MCHC Pending RDW Std Deviation RDW Coeff of Cha Plt Count Pending MPV Immature Gran % (Auto) Neut % (Auto) Lymph % (Auto) Sterling % (Auto) Eos % (Auto) Baso % (Auto) Immature Gran # (Auto) Neut # (Auto) Lymph # (Auto) Sterling # (Auto) Eos # (Auto) Baso # (Auto) Platelet Estimate PT 11.7 INR 1.1 APTT 29.6 PTT Ratio 1.1 ABG pH 7.46 H ABG pCO2 35 ABG pO2 91 ABG HCO3 25 H ABG O2 Saturation 97.4 H ABG Base Excess 1.0 Helio Test Pos Barometric Pressure 729.0 Oxygen Given Room Air Sodium Potassium Chloride Carbon Dioxide Anion Gap BUN Creatinine Est Cr Clr Drug Dosing Est GFR ( Amer) Est GFR (Non-Af Amer) BUN/Creatinine Ratio Glucose POC Glucose Lactate Calcium Magnesium Total Bilirubin AST ALT Alkaline Phosphatase Ammonia Total Protein Albumin Globulin Albumin/Globulin Ratio Lipase Procalcitonin Urine Color Urine Appearance Urine pH Ur Specific [place] Urine Protein Urine Glucose (UA) Urine Ketones Urine Blood Urine Nitrite Urine Bilirubin Urine Urobilinogen Ur Leukocyte Esterase Urine WBC (Auto) Urine RBC (Auto) U Hyaline Cast (Auto) U Epithel Cells (Auto) Urine Bacteria (Auto) Urine Yeast 07/12/19 07/12/19 07/12/19 12:35 12:35 12:35 WBC RBC Hgb Hct MCV MCH MCHC RDW Std Deviation RDW Coeff of Cha Plt Count MPV Immature Gran % (Auto) Neut % (Auto) Lymph % (Auto) Sterling % (Auto) Eos % (Auto) Baso % (Auto) Immature Gran # (Auto) Neut # (Auto) Lymph # (Auto) Sterling # (Auto) Eos # (Auto) Baso # (Auto) Platelet Estimate PT INR APTT PTT Ratio ABG pH ABG pCO2 ABG pO2 ABG HCO3 ABG O2 Saturation ABG Base Excess Helio Test Barometric Pressure Oxygen Given Sodium 136 Potassium 3.9 Chloride 103 Carbon Dioxide 27 Anion Gap 6.0 BUN 20 H Creatinine 0.95 Est Cr Clr Drug Dosing 47.7 Est GFR ( Amer) 63.3 Est GFR (Non-Af Amer) 54.6 BUN/Creatinine Ratio 21.3 H Glucose 119 H POC Glucose Lactate Pending Calcium 8.2 L Magnesium 1.5 L Total Bilirubin Pending AST Pending ALT 10 L Alkaline Phosphatase Pending Ammonia Total Protein Pending Albumin 1.9 L Globulin Pending Albumin/Globulin Ratio Pending Lipase Procalcitonin Pending Urine Color Urine Appearance Urine pH Ur Specific [place] Urine Protein Urine Glucose (UA) Urine Ketones Urine Blood Urine Nitrite Urine Bilirubin Urine Urobilinogen Ur Leukocyte Esterase Urine WBC (Auto) Urine RBC (Auto) U Hyaline Cast (Auto) U Epithel Cells (Auto) Urine Bacteria (Auto) Urine Yeast
[2019-07-12 13:26] LABS: Albumin Globulin Ratio 0.5 (0.9-2); Bilirubin,Total 7.6 mg/dl (0.2-1); Globulin 4.1 gm/dl (2.5-4.0)
--- NOTE | 2019-07-12 13:31 | Hospitalist Progress Note ---
Date of Service July 12, 2019 Assessment & Plan (1) Common bile duct obstruction: Patient has a liver mas and has had history of biliary stents. She felt ill prior to coming to the hospital and had a 14 course of levaquin prior to arrival. She also is no longer receiving treatment by her oncologist for her liver mass given the high risk and low benefit. It appears patient is at the end stage and does not benefit from palliative chemotherapy. She had a palliative care consult 6 months ago but family could not make a decision at that time. She would benefit from a palliative care consult, will defer until patient is more stable. I was called to the bedside today as her BP was low SBP was below 90 with SBP of 70. I ordered a fluid bolus and placed on midodrine due to h/o parkinsons and liver failure. Patient also was placed on antibiotics today with anaerobic coverage. Switched cephalosporin to imipenem for cholangisits coverage. Cephalosporin was switched due to resistance in previous urine culture. Consulted [employer] stat and consulted GI for biliary stents and ERCP. d/w FAMILY: DAUGHTER: Devin Despite updating patient and family explaining that due to her cancer and lack of further treatment of the cancer, age and other comrbidities, that coding her if her heart stops may not be of benefit and may prolong suffering. At this time, family and patient both want patient to be a full code. (2) Cholangitis: Patient getting antibiotics for cholangitis. given severe elevation of bilirrubin. (3) Acute UTI: Patient is an 83 year old female with PMHx Parkinsons Disease, CKD Stage 3, Colon Cancer, Liver Mass, AFib, and Chronic UTI's who presents with chief complaint of abdominal pain x2 weeks. ED Course: Ceftriaxone 1g IV, NSS 500ml bolus Acute UTI -Had been treated for twice with Levaquin, however, is Levaquin resistant -UA relatively dirty, with concerns for continued current UTI -switched to imipenem (4) Liver mass: -CT today noted enlarging R lobe hepatic mass measuring 10 cm and slight progression in intrahepatic biliary ductal dilatation. -Had 2 biliary stent placement by Dr. Machuca on 02/05/19 -Elevated LFTs likely secondary to intermittent hemobilia vs biliary stent occlusions -Per record review, patients liver mass secondary to Hepatocellular Carcinoma per Dr. Candelaria's ([facility] heme/onc) -GI Dr. Machuca consulted (5) Colon cancer: h/o colon cancer (6) Chronic kidney disease, stage 3a: (7) Parkinson disease: -Continue Sinemet (8) Depression: -Continue Venlafaxine (9) Diabetes mellitus, type 2: -SSI with Lantus 14u QD -Continue ASA -Hold Lipitor (10) Hypertension: -Continue Coreg -Continue Imdur Dispo: Med/Surg Tele DVT: SCDs, hold pharmaceutical until after evaluation by GI Code: Full This is a life threatening emergency and I spent 35 minutes of critical care time. (11) Sepsis: Patient treated on antibiotics. Admission and Anticipated Discharge Date Admission Date: July 11, 2019 Subjective Patient is seen at bedside. She reports feeling tired and wants to go back to sleep. Review of Systems Review of Systems: Unobtainable due to cognitive status Physical Exam Physical Exam: Constitutional: well developed, well nourished and cooperative; no acute distress and not in distress Eyes: normal visual garg by confrontation, PERRL and EOM intact bilaterally; sclerae not anicteric ENMT: Ears: + hearing impairment (R worse than L ) Neck: trachea midline, no thyromegaly Respiratory: normal respiratory effort, lungs clear to auscultation Cardiovascular: RRR, no murmur, no edema Gastrointestinal (Abdomen): Inspection/Auscultation: abdomen normal to inspection and normal bowel sounds; abdomen not distended Percussion/Palpation: + abdomen tender (slight TTP in RUQ ) and abdomen soft; abdomen not rigid and abdomen not firm Musculoskeletal: B/L UE 5/5 strength B/L LE 2-3/5 strength with R>L Skin: + jaundice Neurologic: PERRL, EOMI, accommodation nl, no face palsy, no dysarthria awake; not confused Was unable to test gait as patient noted she felt too weak. Psychiatric: A+Ox3, euthymic affect Eye Contact: + fair eye contact Results & Data Results & Data ([facility]) Vital Signs (Past 12 Hours) Vital Signs Temp Pulse Resp BP BP Pulse Ox 07/12/19 13:00 36.4 C L 85/50 L 98 07/12/19 12:04 90/50 L 07/12/19 11:34 36.6 C 73 18 77/42 L 76/45 L 96 07/12/19 08:48 36.9 C 91 H 18 94/60 L 95 07/12/19 07:22 37.7 C H 102 H 20 158/81 H 95 07/12/19 07:02 38.4 C H 119 H 18 179/84 H 95 PG Care Time/CCT Total # of Minutes Spent Total Time Spent with Patient: Total time spent is greater than 50% in coordination of care (as documented) at patient's floor/unit and/or counseling patient: Critical Care Time: Yes Total Critical Care Time: 35 Coding Level of Care Code 18102 Subseq Hosp Care Lvl 3 Diagnoses Common bile duct obstruction K83.1 Cholangitis K83.09 Acute UTI N39.0 Liver mass R16.0 Colon cancer C18.9 Chronic kidney disease, stage 3a N18.3 Parkinson disease G20 Depression F32.9 Diabetes mellitus, type 2 E11.69; Z79.4 Diabetes mellitus complication status: with other specified complication Diabetes mellitus terminal supervisor insulin use: with senior living use Hypertension I10 Hypertension type: essential hypertension Sepsis A41.9 Additional Codes Critical Care Time - Critical Care Time: Yes ([id number]) Time Spent (min) 65 (1) Diabetes mellitus, type 2 Diabetes mellitus complication status: with other specified complication Diabetes mellitus senior living insulin use: with terminal supervisor use Qualified Code(s): E11.69 - Type 2 diabetes mellitus with other specified complication; Z79.4 - [facility] (current) use of insulin (2) Hypertension Hypertension type: essential hypertension Qualified Code(s): I10 - Essential (primary) hypertension
[2019-07-12 13:33] LABS: Basophils # (auto) 0.01 K/uL (0-0.2); Basophils % (auto) 0.1 %; Hematocrit (blood only) 30.4 % (37-47); Hemoglobin 9.4 g/dL (12.0-16.0); Immature Granulocytes # (auto) 0.03 K/uL (0.00-0.02); Immature Granulocytes % (auto) 0.3 %; Lymphocytes # (auto) 0.84 K/uL (1.2-3.4); Lymphocytes % (auto) 9.1 %; Mean Corpuscular Hemoglobin 28.1 pg (25-34); Mean Corpuscular Hgb Conc 30.9 g/dL (32-36); Mean Platelet Volume 12.7 fL (7.4-10.4); Monocytes # (auto) 0.78 K/uL (0.11-0.59); Monocytes % (auto) 8.4 %; Neutrophils # (auto) 7.62 K/uL (1.4-6.5); Neutrophils % (auto) 82.1 %; Platelet Count 121 K/uL (130-400); RDW Coefficient of Variation 16.4 % (11.5-14.5); RDW Standard Deviation 54.3 fL (36.4-46.3); Red Blood Count 3.34 M/uL (4.2-5.4); White Blood Count 9.28 K/uL (4.8-10.8)
--- NOTE | 2019-07-12 13:35 | Anesthesiology Consultation ---
Date of Service July 12, 2019 Assessment & Plan (1) Encounter for pre-operative examination: Chart Review Chart Review: Acceptable Risk for Surgery (increased risk but needs to be done due to cholangitis) History Surgery Operation Date: 07/12/19 13:30 Proposed Procedures p Endoscopic Retrograde Cholangiopancreato - Ellis Machuca MD Height/Weight Height: 5 ft 5 in Weight: 89 kg Allergies Allergy/AdvReac Type Severity Reaction Status Date / Time Iodinated Contrast Media Allergy Intermediate IV Verified 07/11/19 20:21 CONTRAST- HIVES Bactrim Allergy Unknown patient Verified 09/21/16 05:17 unsure Cipro Allergy Unknown unknown Verified 09/21/16 05:17 ciprofloxacin Allergy Unknown unknown Verified 07/11/19 20:21 nitrofurantoin Allergy Unknown unknown Verified 07/11/19 20:21 sulfamethoxazole Allergy Unknown patient Verified 07/11/19 20:21 unsure trimethoprim Allergy Unknown patient Verified 07/11/19 20:21 unsure acarbose AdvReac Mild GI SYMPTOMS Verified 07/11/19 20:21 azithromycin AdvReac Mild dizzy/nause Verified 07/11/19 20:21 a insulin glargine AdvReac Mild "Very ill" Verified 07/11/19 20:21 [From Lantus U-100 Insulin] - see comments metformin AdvReac Mild GI SYMPTOMS Verified 02/02/19 10:48 Penicillins AdvReac Mild dizzy, Verified 02/02/19 10:48 nausous (per patient) tolerated zosyn [id number] troglitazone AdvReac Mild GI SYMPTOMS Verified 02/02/19 10:48 Medications Home Medications Medication Instructions Recorded Confirmed Last Taken carvedilol 6.25 mg PO BIDM 06/11/18 07/11/19 07/11/19 08:00 folic acid 1 mg PO DAILY 06/11/18 07/11/19 07/11/19 pantoprazole 40 mg PO QAM 06/11/18 07/11/19 02/02/19 Fiasp FlexTouch U-100 Insulin See Rx Instructions .ROUTE .COMPLEX 08/24/18 07/11/19 07/11/19 12:00 Tresiba FlexTouch U-200 22 unit SUBCUT QAM 08/24/18 07/11/19 07/11/19 aspirin [Aspirin Low Dose] 81 mg PO QAM 08/24/18 07/11/19 07/11/19 atorvastatin 40 mg PO DAILY 08/24/18 07/11/19 02/02/19 isosorbide mononitrate 30 mg PO DAILY 08/24/18 07/11/19 07/11/19 oxycodone [OxyContin] 20 mg PO Q12H #6 tab 08/29/18 07/11/19 07/11/19 08:00 ferrous sulfate 325 mg PO BID 09/14/18 07/11/19 07/11/19 08:00 oxycodone 5 mg PO Q6 PRN 09/14/18 07/11/19 07/11/19 08:00 nitroglycerin [Nitrostat] 0.4 mg SUBLINGUAL PRN PRN #30 tab 02/11/19 07/11/19 Unknown polyethylene glycol 3350 [Miralax] 17 g PO DAILY #30 ea 02/11/19 07/11/19 07/11/19 acetaminophen [Tylenol] 650 mg PO QID PRN 07/11/19 07/11/19 Unknown carbidopa-levodopa 1 tab PO TID 07/11/19 07/11/19 Unknown melatonin 3 mg PO HS PRN 07/11/19 07/11/19 Unknown nystatin 1 applic TOPICAL BID 07/11/19 07/11/19 07/11/19 08:00 ondansetron 4 mg PO TID PRN 07/11/19 07/11/19 Unknown pregabalin [Lyrica] 25 mg PO QAM 07/11/19 07/11/19 07/11/19 08:00 pregabalin [Lyrica] 50 mg PO 07/11/19 07/11/19 Unknown sennosides [Senokot] 17.2 mg PO HS 07/11/19 07/11/19 Unknown venlafaxine 37.5 mg PO DAILY 07/12/19 07/12/19 Unknown Active Medications Generic Name Dose Route Start Last Admin Trade Name Freq PRN Reason Stop Dose Admin Acetaminophen 1,000 mg 07/12/19 07:16 07/12/19 07:22 Tylenol PO 08/11/19 07:15 1,000 mg Q6H PRN Administration Fever Aspirin 81 mg 07/12/19 09:00 07/12/19 07:24 Ecotrin Ectab PO 08/11/19 08:59 81 mg QAM SRAAH Administration Carbidopa/Levodopa 1 tab 07/12/19 09:00 07/12/19 07:24 Sinemet Cr 50/200mg PO 08/11/19 08:59 1 tab TID SARAH Administration Carvedilol 6.25 mg 07/12/19 08:00 07/12/19 07:23 Coreg PO 08/11/19 07:59 6.25 mg BIDM SARAH Administration Ferrous Sulfate 325 mg 07/12/19 08:00 07/12/19 07:24 Feosol PO 08/11/19 07:59 325 mg BIDM SARAH Administration Folic Acid 1 mg 07/12/19 09:00 07/12/19 07:23 Folvite PO 08/11/19 08:59 1 mg DAILY SARAH Administration Sodium Chloride 1,000 mls @ 100 mls/hr 07/12/19 00:45 07/12/19 11:41 Nss 1000ml IV 08/11/19 00:44 0 mls/hr .Q10H SARAH Infusion Lactated Ringer's 1,000 mls @ 125 mls/hr 07/12/19 11:45 07/12/19 12:59 Lr IV 08/11/19 11:44 Infused .Q8H SARAH Infusion Insulin Aspart 0 units 07/12/19 11:30 07/12/19 12:09 Fiasp 100 Unit/Ml Vial SQ 08/11/19 11:29 Not Given AC SARAH Insulin Degludec 22 units 07/12/19 10:00 07/12/19 10:05 Tresiba Flextouch U-200 SQ 08/11/19 09:59 22 units QAM SARAH Administration Isosorbide Mononitrate 30 mg 07/12/19 09:00 07/12/19 07:23 Imdur Extended Rel PO 08/11/19 08:59 30 mg DAILY SARAH Administration Midodrine 5 mg 07/12/19 12:00 07/12/19 12:14 Proamatine PO 08/11/19 11:59 5 mg TID@0800,1200,1700 SARAH Administration Pantoprazole Sodium 40 mg 07/12/19 09:00 07/12/19 07:23 Protonix PO 07/06/20 08:59 40 mg QAM SARAH Administration Pregabalin 25 mg 07/12/19 09:00 07/12/19 09:03 Lyrica PO 08/11/19 08:59 25 mg QAM SARAH Administration Venlafaxine HCl 37.5 mg 07/12/19 09:00 07/12/19 07:23 Effexor Extended Release PO 08/11/19 08:59 37.5 mg DAILY SARAH Administration Past Medical History Medical History (Updated 07/12/19 @ 13:37 by Diego Burris MD) Atrial fibrillation (Chronic) "per old records" Cholangitis Chronic pain syndrome (Chronic) "arthritis + neuropathy" Common bile duct obstruction Coronary artery disease (Chronic) "s/p PCI ? [place]" Diabetes mellitus, type 2 (Chronic) Diabetic neuropathy (Chronic) GERD (gastroesophageal reflux disease) (Chronic) Hypertension (Chronic) Liver cancer Parkinson's disease (Chronic) Recurrent urinary tract infection (Chronic) Past Family History Family History Other Myocardial infarction Past Surgical History Surgical History (Updated 07/12/19 @ 13:38 by Diego Burris MD) Hx of endoscopic retrograde cholangiopancreatography June [address] Status post cardiac catheterization (Chronic) Status post cholecystectomy (Chronic) Status post coronary artery stent placement (Chronic) Social History Smoking Status: Former smoker Do You Dip or Chew Tobacco: No Hx Alcohol Use: No alcohol intake frequency: holidays/special occasions only Hx Substance Use: No substance use type: does not use Physical Exam Vital Signs Last Vital Signs Temp 36.4 C L 07/12/19 13:00 Pulse 73 07/12/19 11:34 Resp 18 07/12/19 11:34 BP 85/50 L 07/12/19 13:00 Pulse Ox 98 07/12/19 13:00 Testing Laboratory Results 07/12/19 12:35 07/12/19 12:35 PT 11.7 Seconds (9.0-12.0) 07/12/19 12:35 INR 1.1 (0.9-1.1) 07/12/19 12:35 APTT 29.6 Seconds (21.0-31.0) 07/12/19 12:35 Urine Color Dark Yellow 07/11/19 19:54 Urine Appearance Turbid (Clear) A 07/11/19 19:54 Urine pH 6.0 (4.5-7.5) 07/11/19 19:54 Ur Specific [place] 1.019 (1.000-1.030) 07/11/19 19:54 Urine Protein 2+ (Negative) H 07/11/19 19:54 Urine Glucose (UA) 2+ (Negative) H 07/11/19 19:54 Urine Ketones Negative (Negative) 07/11/19 19:54 Urine Nitrite Positive (Negative) A 07/11/19 19:54 Ur Leukocyte Esterase 3+ (Negative) H 07/11/19 19:54 Urine WBC (Auto) >30 /hpf (0-5) H 07/11/19 19:54 Urine RBC (Auto) 0-4 /hpf (0-4) 07/11/19 19:54 U Hyaline Cast (Auto) 0 /lpf (0-5) 07/11/19 19:54 U Epithel Cells (Auto) >30 /lpf (0-5) H 07/11/19 19:54 Urine Bacteria (Auto) 4+ (Negative) H 07/11/19 19:54 07/11/19 19:54 Urine Culture - Preliminary Urine,Straight Cath Gram negative bacilli 07/12/19 07/12/19 07/12/19 11:39 07:28 06:09 POC Glucose 137 H 154 H 156 H 07/12/19 01:57 POC Glucose 198 H Electrocardiogram Date: 07/12/19 Findings: + NSR @ (94) and + RBBB Chest X-Ray Date: 07/12/19 Findings: + NAD and + cardiomegaly
[2019-07-12] MEDS ORDERED: ATROPINE SULFATE 0.1 MG/ML 10ML SYR IV PRN (13:40)
[2019-07-12] MEDS ORDERED: fentaNYL citrate 100 MCG/2 ML VIAL IV PRN (13:40)
[2019-07-12] MEDS ORDERED: ONDANSETRON INJ 2 MG/ML 2 ML VIAL IV PRN (13:40)
[2019-07-12] MEDS ORDERED: INDOMETHACIN 50 MG SUPP PR ONE (13:47)
--- NOTE | 2019-07-12 14:53 | Operative Report ---
Post Operative Report Pre & Post Diagnosis Operation Date: 07/12/19 13:30 Pre-Op Diagnosis: Jaundice Post-Op Diagnosis: Malignant Biliary obstruction I identified the patient and participated in the time-out.: Yes Procedure Operation Date: 07/12/19 13:30 Actual Procedures p Endoscopic Retrograde Cholangiopancreatogram(Not Applicable) - Ellis simons MD Surgeon Ellis Machuca MD Char Filter Tank Tender None Estimated Blood Loss 0 Findings See Below (Malignant Hilar biliary obstruction, Stent placed) Specimens None Description of Procedure ERCP I attest to the content of the Intraoperative Record and any orders documented therein. Any exceptions are noted below.
[2019-07-12] MEDS ORDERED: LIDOCAINE HCL 2% 2 ML VIAL/AMP(20MG/ML) INFIL ONE (15:03)
[2019-07-12] MEDS ORDERED: PROPOFOL IV EMULSION 10 MG/ML 20 ML VIAL IV ONE ×2 (15:03)
--- NOTE | 2019-07-12 15:13 | GI REPORT ---
Patient Name: Katya Acevedo Procedure Date: 07/12/2019 12:30 PM Date of : 1935 Admit Type: Inpatient Age: 83 Gender: Female Attending MD: Ellis Machuca MD Procedure: ERCP Providers: Ellis Machuca MD Referring MD: Lokesh Alonso M.d. Indications: For therapy of ascending cholangitis, Jaundice, Elevated liver enzymes, Liver mass with obstruction Medicines: Propofol per Anesthesia Complications: No immediate complications. Estimated Blood Loss: Estimated blood loss: none. Procedure: Pre-Anesthesia Assessment: - Prior to the procedure, a History and Physical was performed, and patient medications, allergies and sensitivities were reviewed. The patient's tolerance of previous anesthesia was reviewed. - The risks and benefits of the procedure and the sedation options and risks were discussed with the patient. All questions were answered and informed consent was obtained. - Patient identification and proposed procedure were verified prior to the procedure by the physician and the nurse. The procedure was verified in the procedure room. - Pre-procedure physical examination revealed no contraindications to sedation. After obtaining informed consent, the scope was passed under direct vision. Throughout the procedure, the patient's blood pressure, pulse, and oxygen saturations were monitored continuously. The Scope was introduced through the mouth, and advanced to the duodenum and used to inject contrast into the bile duct. The ERCP was accomplished without difficulty. The patient tolerated the procedure well. Findings: A oracle r12 developer film of the abdomen was obtained. Surgical clips, consistent with a previous cholecystectomy, were seen in the area of the right upper quadrant of the abdomen. Two biliary stent was visible on the oracle r12 developer film. The esophagus was successfully intubated under direct vision. The scope was advanced to a normal major papilla in the descending duodenum without detailed examination of the pharynx, larynx and associated structures, and upper GI tract. The upper GI tract was grossly normal. One uncovered metal biliary stent originating in the biliary tree were emerging from the major papilla, the second stent was deeply berried inside. The stent was visibly patent. A 0.035 inch straight standard wire was passed into the biliary tree. The Fusion OMNI sphincterotome was passed over the guidewire and the bile duct was then deeply cannulated. Contrast was injected. I personally interpreted the bile duct images. Ductal flow of contrast was adequate. Image quality was adequate. Contrast extended to the main bile duct. Opacification of the lower third of the main bile duct, middle third of the main bile duct was successful and both stents were not occluded. There is now severe stenosis above the stents in the intrahepatic ducts. After multiple attempts I was able to get the guidewire into the dilated intrahepatic ducts. The biliary tree was swept with a 12 mm balloon starting at the bifurcation. Pus was swept from the duct. Two 10 mm by 10 cm and 8 cm uncovered metal biliary stents were placed 17 cm into the common bile duct to bridge the entire stenosis with one end deep in the liver and the other end out of the papilla. Bile flowed through the stents. The stents were in good position. 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 Long uncovered metal biliary stent was placed into the intrahepatic ductal system and ends in the papilla to bridge the entire stenosis. - Pus was found consistent with acute cholangitis. Recommendation: - [facility] to [facility] care. - Continue IV ABx. - Monitor LFTs. Ellis Machuca MD 07/12/2019 3:13:22 PM This report has been signed electronically. Note Initiated On: 07/12/2019 12:30 PM Number of Addenda: 0 I attest to the content of the Intraoperative Record and orders documented therein, exceptions below {[id number]}
--- NOTE | 2019-07-12 15:25 | Anesthesiology Progress Note ---
Date of Service July 12, 2019 Anesthesia Post Procedure Vital Signs Vital Signs: Temp Pulse Pulse Pulse Resp BP BP 07/12/19 15:20 84 20 114/49 L 07/12/19 15:10 85 15 122/45 L 07/12/19 15:03 36.2 C L 88 16 116/44 L 07/12/19 13:52 82 16 07/12/19 13:00 36.4 C L 07/12/19 12:04 07/12/19 11:34 36.6 C 73 18 77/42 L 07/12/19 08:48 36.9 C 91 H 18 07/12/19 07:22 37.7 C H 102 H 20 07/12/19 07:02 38.4 C H 119 H 18 07/12/19 00:45 37.0 C 101 H 19 127/75 07/12/19 00:00 87 22 102/59 L 07/11/19 23:30 101 H 23 100/62 07/11/19 23:01 102 H 20 157/53 H 07/11/19 22:31 102 H 24 138/72 07/11/19 22:00 100 H 24 136/68 07/11/19 21:30 96 H 23 105/55 L 07/11/19 21:00 96 H 21 125/62 07/11/19 20:51 96 H 24 118/78 07/11/19 20:33 07/11/19 18:33 37.1 C 96 H 20 148/84 H BP Pulse Ox 07/12/19 15:20 100 07/12/19 15:10 100 07/12/19 15:03 100 07/12/19 13:52 95/47 L 98 07/12/19 13:00 85/50 L 98 07/12/19 12:04 90/50 L 07/12/19 11:34 76/45 L 96 07/12/19 08:48 94/60 L 95 07/12/19 07:22 158/81 H 95 07/12/19 07:02 179/84 H 95 07/12/19 00:45 98 07/12/19 00:00 97 07/11/19 23:30 97 07/11/19 23:01 97 07/11/19 22:31 96 07/11/19 22:00 96 07/11/19 21:30 96 07/11/19 21:00 95 07/11/19 20:51 96 07/11/19 20:33 96 07/11/19 18:33 96 Transfer of Care Handoff Completed per policy Notes Mental Status: alert / awake / arousable Patient Amnestic to Procedure: Yes Nausea / Vomiting: adequately controlled Pain: adequately controlled Airway Patency, RR, SpO2: stable & adequate BP & HR: stable & adequate Hydration State: stable & adequate Anesthetic Complications: no major complications apparent
--- NOTE | 2019-07-12 15:26 | Fluoroscopy Report ---
INTRAOPERATIVE RADIOGRAPHS CLINICAL HISTORY: ERCP procedure. Fluoroscopy time: 6 minutes 40 seconds. FINDINGS: 15 spot images of the right upper quadrant are correlated with abdominal CT dated 07/11/2019. The initial image shows cholecystectomy clips in the right upper quadrant with [address] in place. The biliary tree is accessed. There is moderate to severe intrahepatic biliary ductal dilatation. A new stent is placed extending into the left hepatic lobe. IMPRESSION: Intraoperative ERCP images as above. See operative report for detailed findings. Electronically signed by: Mario Thomas M.D. 07/12/2019 3:25 PM
[2019-07-12] MEDS ORDERED: CONRAY 60% 50 ML VIAL ONE (15:34)
[2019-07-12] MEDS ORDERED: Nursing to Pharmacy Communication ONE (16:30)
[2019-07-12] MEDS: IMIPENEM/CILASTATIN SODIUM 300 MG in DEXTROSE 5% 100 ML IV SCH ×2 (16:44→16:45)
[2019-07-12] MEDS: OXYCODONE HCL IR 5 MG TAB (IMMEDIATE RELEASE) PO SCH (16:57)
[2019-07-12] MEDS ORDERED: OXYCODONE HCL 20 MG TABCR (OXYCONTIN) PO SCH (17:00)
[2019-07-12] MEDS: OXYCODONE HCL 20 MG TABCR (OXYCONTIN) PO SCH (21:01)
[2019-07-12] MEDS: PREGABALIN 50 MG CAP PO SCH (21:01)
--- NOTE | 2019-07-12 21:57 | Electrocardiogram Report ---
Test Reason : Blood Pressure : / mmHG Vent. Rate : 094 BPM Atrial Rate : 094 BPM P-R Int : 140 ms QRS Dur : 122 ms QT Int : 362 ms P-R-T Axes : 046 070 013 degrees QTc Int : 452 ms Poor data quality, interpretation may be adversely affected Normal sinus rhythm Right bundle branch block Abnormal ECG When compared with ECG of 04-FEB-2019 08:53, No significant change was found Confirmed by Jeromy Sands ([id number]) on 07/12/2019 9:56:31 PM Referred By: REFERRED SELF Confirmed By:Jeromy Sands
[2019-07-12] MEDS ORDERED: cefTRIAXone SODIUM 1,000 MG in DEXTROSE 5% 50 ML IV SCH (23:00)
[2019-07-13] MEDS: OXYCODONE HCL IR 5 MG TAB (IMMEDIATE RELEASE) PO SCH ×5 (00:21→22:24)
[2019-07-13] MEDS: IMIPENEM/CILASTATIN SODIUM 300 MG in DEXTROSE 5% 100 ML IV SCH ×5 (00:21→22:24)
[2019-07-13] MEDS: LACTATED RINGER'S 1,000 ML IV SCH ×2 (02:04→09:54)
[2019-07-13 06:53] LABS: Hematocrit (blood only) 30.7 % (37-47); Hemoglobin 9.7 g/dL (12.0-16.0); Mean Corpuscular Hemoglobin 28.7 pg (25-34); Mean Corpuscular Hgb Conc 31.6 g/dL (32-36); Mean Corpuscular Volume 90.8 fL (80-100); Mean Platelet Volume 12.7 fL (7.4-10.4); Platelet Count 116 K/uL (130-400); RDW Coefficient of Variation 16.6 % (11.5-14.5); RDW Standard Deviation 54.9 fL (36.4-46.3); Red Blood Count 3.38 M/uL (4.2-5.4); White Blood Count 7.98 K/uL (4.8-10.8)
[2019-07-13 07:22] LABS: Eosinophils # (auto) 0.02 K/uL (0-0.5); Eosinophils % (auto) 0.3 %; Immature Granulocytes # (auto) 0.02 K/uL (0.00-0.02); Immature Granulocytes % (auto) 0.3 %; Lymphocytes # (auto) 1.15 K/uL (1.2-3.4); Lymphocytes % (auto) 14.4 %; Monocytes # (auto) 0.63 K/uL (0.11-0.59); Monocytes % (auto) 7.9 %; Neutrophils # (auto) 6.16 K/uL (1.4-6.5); Neutrophils % (auto) 77.1 %
[2019-07-13 07:25] LABS: Albumin Globulin Ratio 0.4 (0.9-2); Albumin Level 1.8 gm/dl (3.4-5.0); BUN Creatinine Ratio 26.8 (10-20); Bilirubin,Total 7.7 mg/dl (0.2-1); Calcium 8.8 mg/dl (8.5-10.1); Creatinine Clr Calc Pharmacy 47.8 ml/min; Est GFR (African American) 67.6; Est GFR (Non-African American) 58.3; Globulin 4.3 gm/dl (2.5-4.0); Potassium 3.5 mmol/L (3.5-5.1); Total Protein 6.1 gm/dl (6.4-8.2)
[2019-07-13] MEDS: INSULIN ASPART 100 UNIT/ML SQ SCH ×3 (07:35→17:15)
[2019-07-13] MEDS: FOLIC ACID 1 MG TAB PO SCH (08:00)
[2019-07-13] MEDS: ISOSORBIDE MONO EXTENDED REL 30 MG TABCR PO SCH (08:00)
[2019-07-13] MEDS: carvediloL 6.25 MG TAB PO SCH (08:00)
[2019-07-13] MEDS: CARBIDOPA/LEVODOPA 50/200MG EXT REL TAB PO SCH ×3 (08:00→20:37)
[2019-07-13] MEDS: PANTOprazole 40 MG TAB PO SCH (08:00)
[2019-07-13] MEDS: OXYCODONE HCL 20 MG TABCR (OXYCONTIN) PO SCH ×2 (08:00→20:36)
[2019-07-13] MEDS: FERROUS SULFATE 325 MG TAB PO SCH ×2 (08:01→17:14)
[2019-07-13] MEDS: INSULIN DEGLUDEC 200 UNIT/ML SQ SCH (08:01)
[2019-07-13] MEDS: ASPIRIN 81 MG ECTAB PO SCH (08:01)
[2019-07-13] MEDS: VENLAFAXINE HCL XR 37.5 MG CAPXR PO SCH (08:01)
[2019-07-13] MEDS: PREGABALIN 25 MG CAP PO SCH (08:04)
[2019-07-13] MEDS: POLYETHYLENE (MIRALAX) 17 GM PACK PO PRN (08:59)
[2019-07-13] MEDS: MIDODRINE HCL 2.5 MG TAB PO SCH ×3 (10:05→17:14)
--- NOTE | 2019-07-13 11:14 | Gastroenterology Progress Note ---
Date of Service July 13, 2019 Assessment & Plan (1) Cholangitis: 83 years old female patient with advanced stage HCC, admitted with sepsis, has UTI and elevated LFTs with suspected cholangitis Underwent ERCP yesterday, LFTs have mildly improved, not surprising the bilirubin will take a while to trend down but also has a heavy burden of disease and likely small intrahepatics that are not draining given the fact that she has such extensive disease. We will continue broad-spectrum antibiotics, have a thoughtful discussion with mother given the fact that she is had continued progression of disease although the ERCP may have temporized the contributing infection, however, clearly she has uncurable illness therefore palliative care and comfort care should be strongly considered as well as CODE STATUS. No future or likely interventions would be well from a GI standpoint. Recall if any questions. Admission and Anticipated Discharge Date Admission Date: July 11, 2019 Subjective Underwent ERCP yesterday with elongation of indwelling metal stents. Vital signs have mostly improved, she did have an episode this morning transient hypotension with response to IV fluids. White count has decreased. Physical Exam Physical Exam: Deeply jaundiced lethargic, arousable, was able to minimally converse with me. Tachycardic Diminished breath sound Normal active soft nontender nondistended Anasarca Results & Data ([facility]) Vital Signs (Past 12 Hours) Vital Signs Temp Pulse Pulse Resp BP BP Pulse Ox 07/13/19 11:06 109/69 07/13/19 10:59 36.9 C 82 18 96/62 L 94 07/13/19 09:56 36.8 C 82 18 74/47 L 91/57 L 93 07/13/19 07:58 82 16 112/70 95 07/13/19 07:16 36.7 C 113 H 20 109/65 92 07/13/19 03:14 37.4 C 88 19 100/50 L 92
[2019-07-13] MEDS ORDERED: SODIUM CHLORIDE 0.9% 1000ML 1,000 ML IV SCH (11:30)
[2019-07-13] MEDS: PREGABALIN 50 MG CAP PO SCH (20:36)
--- NOTE | 2019-07-13 23:22 | Hospitalist Progress Note ---
Date of Service July 13, 2019 Assessment & Plan (1) Common bile duct obstruction: Patient has a liver mas and has had history of biliary stents. She felt ill prior to coming to the hospital and had a 14 course of levaquin prior to arrival. She also is no longer receiving treatment by her oncologist for her liver mass given the high risk and low benefit. It appears patient is at the end stage and does not benefit from palliative chemotherapy. She had a palliative care consult 6 months ago but family could not make a decision at that time. She would benefit from a palliative care consult, will defer until patient is more stable. Over the weekend, she was having episodes of hypotension, but responded to midodrine and fluids. This occured on Sunday and Sunday. Patient also was placed on antibiotics today with anaerobic coverage. Now on Imipenem. Cephalosporin was switched due to resistance in previous urine culture. S/P new biliary stents. Bilirrubin did not improve. Despite updating patient and family explaining that due to her cancer and lack of further treatment of the cancer, age and other comrbidities, that coding her if her heart stops may not be of benefit and may prolong suffering. At this time, family and patient both want patient to be a full code. Would likely beenit from a palliative care consult on Sunday, perhaps having her oncologist from [facility] discuss goals of care with her may also be beneficiial if sh is unagreebale here. (2) Cholangitis: Patient getting antibiotics for cholangitis. given severe elevation of bilirrubin. No improvement, s/p biliary stents, clinically she did look beter in the afternoon. will need to reassess daily CMP. (3) Acute UTI: Patient is an 83 year old female with PMHx Parkinsons Disease, CKD Stage 3, Colon Cancer, Liver Mass, AFib, and Chronic UTI's who presents with chief complaint of abdominal pain x2 weeks. ED Course: Ceftriaxone 1g IV, NSS 500ml bolus Acute UTI -Had been treated for twice with Levaquin, however, is Levaquin resistant -UA relatively dirty, with concerns for continued current UTI -switched to imipenem (4) Liver mass: -CT today noted enlarging R lobe hepatic mass measuring 10 cm and slight progression in intrahepatic biliary ductal dilatation. -Had 2 biliary stent placement by Dr. Machuca on 02/05/19 -Replaced on 07/12/19 -Elevated LFTs likely secondary to intermittent hemobilia vs biliary stent occlusions -Per record review, patients liver mass secondary to Hepatocellular Carcinoma per Dr. Orellanas ([facility] [place] [facility]/onc) -GI Dr. Machuca consulted (5) Colon cancer: h/o colon cancer (6) Chronic kidney disease, stage 3a: (7) Parkinson disease: -Continue Sinemet (8) Depression: -Continue Venlafaxine (9) Diabetes mellitus, type 2: -SSI with Lantus 14u QD -Continue ASA -Hold Lipitor (10) Hypertension: -held Coreg -Continue Imdur Dispo: Med/Surg Tele DVT: SCDs, hold pharmaceutical until after evaluation by GI Code: Full (11) Sepsis: Patient treated on antibiotics. Admission and Anticipated Discharge Date Admission Date: July 11, 2019 Subjective Patient has no new complaints. She continues to be drowsy, denies any pain. In the evening, she was reassessed, she was more awake and hungry. Review of Systems Review of Systems: All systems reviewed & are unremarkable except as noted in HPI & below Physical Exam Physical Exam: Constitutional: well developed, well nourished and cooperative; no acute distress and not in distress Eyes: normal visual garg by confrontation, PERRL and EOM intact bilaterally; sclerae not anicteric ENMT: Ears: + hearing impairment (R worse than L ) Neck: trachea midline, no thyromegaly Respiratory: normal respiratory effort, lungs clear to auscultation Cardiovascular: RRR, no murmur, no edema Gastrointestinal (Abdomen): Inspection/Auscultation: abdomen normal to inspection and normal bowel sounds; abdomen not distended Percussion/Palpation: + abdomen tender (slight TTP in RUQ ) and abdomen soft; abdomen not rigid and abdomen not firm Musculoskeletal: B/L UE 5/5 strength B/L LE 2-3/5 strength with R>L Skin: + jaundice (less juandiced in PM) Neurologic: PERRL, EOMI, accommodation nl, no face palsy, no dysarthria awake; not confused Was unable to test gait as patient noted she felt too weak. Psychiatric: A+Ox3, euthymic affect Eye Contact: + fair eye contact Results & Data Results & [facility] ([facility]) Vital Signs (Past 12 Hours) Vital Signs Temp Pulse Pulse Resp BP BP Pulse Ox 07/13/19 19:16 36.6 C 81 18 119/72 07/13/19 16:00 78 07/13/19 15:39 36.7 C 79 18 105/69 95 PG Care Time/CCT Total # of Minutes Spent Total Time Spent with Patient: Total time spent is greater than 50% in coordination of care (as documented) at patient's floor/unit and/or counseling patient: Coding Level of Care Code 61548 Subseq Hosp Care Lvl 3 Diagnoses Common bile duct obstruction K83.1 Cholangitis K83.09 Acute UTI N39.0 Liver mass R16.0 Colon cancer C18.9 Chronic kidney disease, stage 3a N18.3 Parkinson disease G20 Depression F32.9 Diabetes mellitus, type 2 E11.69; Z79.4 Diabetes mellitus complication status: with other specified complication Diabetes mellitus senior living insulin use: with city carrier use Hypertension I10 Hypertension type: essential hypertension Sepsis A41.9 Time Spent (min) 35 (1) Diabetes mellitus, type 2 Diabetes mellitus complication status: with other specified complication Diabetes mellitus senior living insulin use: with city carrier use Qualified Code(s): E11.69 - Type 2 diabetes mellitus with other specified complication; Z79.4 - shelter (current) use of insulin (2) Hypertension Hypertension type: essential hypertension Qualified Code(s): I10 - Essential (primary) hypertension
[2019-07-14] MEDS: OXYCODONE HCL IR 5 MG TAB (IMMEDIATE RELEASE) PO SCH ×2 (04:19→10:56)
[2019-07-14] MEDS: IMIPENEM/CILASTATIN SODIUM 300 MG in DEXTROSE 5% 100 ML IV SCH ×4 (04:19→23:22)
[2019-07-14] MEDS: ISOSORBIDE MONO EXTENDED REL 30 MG TABCR PO SCH (07:45)
[2019-07-14] MEDS: CARBIDOPA/LEVODOPA 50/200MG EXT REL TAB PO SCH ×3 (07:45→20:41)
[2019-07-14] MEDS: FOLIC ACID 1 MG TAB PO SCH (07:45)
[2019-07-14] MEDS: FERROUS SULFATE 325 MG TAB PO SCH ×2 (07:46→17:36)
[2019-07-14] MEDS: PANTOprazole 40 MG TAB PO SCH (07:46)
[2019-07-14] MEDS: ASPIRIN 81 MG ECTAB PO SCH (07:46)
[2019-07-14] MEDS: MIDODRINE HCL 2.5 MG TAB PO SCH ×3 (07:46→17:36)
[2019-07-14] MEDS: VENLAFAXINE HCL XR 37.5 MG CAPXR PO SCH (07:46)
[2019-07-14] MEDS: OXYCODONE HCL 20 MG TABCR (OXYCONTIN) PO SCH ×2 (07:51→20:41)
[2019-07-14] MEDS: PREGABALIN 25 MG CAP PO SCH (07:52)
[2019-07-14] MEDS: POLYETHYLENE (MIRALAX) 17 GM PACK PO PRN (07:52)
[2019-07-14] MEDS: INSULIN DEGLUDEC 200 UNIT/ML SQ SCH (08:55)
[2019-07-14] MEDS: INSULIN ASPART 100 UNIT/ML SQ SCH ×3 (08:57→17:35)
[2019-07-14 08:58] LABS: Hematocrit (blood only) 33.5 % (37-47); Hemoglobin 10.7 g/dL (12.0-16.0); Mean Corpuscular Hemoglobin 29.1 pg (25-34); Mean Corpuscular Hgb Conc 31.9 g/dL (32-36); Platelet Count 127 K/uL (130-400); RDW Coefficient of Variation 16.4 % (11.5-14.5); RDW Standard Deviation 54.5 fL (36.4-46.3); Red Blood Count 3.68 M/uL (4.2-5.4); White Blood Count 6.76 K/uL (4.8-10.8)
[2019-07-14 09:32] LABS: Albumin Level 1.8 gm/dl (3.4-5.0); Bilirubin Direct 7.5 mg/dl (0-0.2); Bilirubin,Total 8.3 mg/dl (0.2-1); Calcium 8.6 mg/dl (8.5-10.1); Creatinine Clr Calc Pharmacy 45.8 ml/min; Est GFR (African American) 64.1; Est GFR (Non-African American) 55.3; Potassium 3.8 mmol/L (3.5-5.1); Total Protein 6.3 gm/dl (6.4-8.2)
[2019-07-14 10:01] LABS: Appearance Urine Clear (Clear); Bacteria Urine Automated Negative (Negative); Blood Urine Negative (Negative); Color Urine Dark Yellow; Epithelial Cell Urine Auto >30 /lpf (0-5); Glucose Urine UA Negative (Negative); Ketones Urine Negative (Negative); Leukocyte Esterase Urine 3+ (Negative); Nitrite Urine Negative (Negative); Protein Urine Negative (Negative); RBC Urine Automated 0-4 /hpf (0-4); Specific Gravity Urine 1.011 (1.000-1.030); Urobilinogen Urine Negative (Negative)
[2019-07-14 10:08] LABS: Bilirubin Urine 2+ (Negative)
[2019-07-14 10:09] LABS: Ictotest Urine Positive (Negative)
[2019-07-14] MEDS ORDERED: OXYCODONE HCL IR 5 MG TAB (IMMEDIATE RELEASE) PO PRN (11:00)
--- NOTE | 2019-07-14 11:01 | Hospitalist Progress Note ---
Date of Service July 14, 2019 Assessment & Plan (1) Common bile duct obstruction: Patient has known liver mass, HCC, and has had history of biliary stents due to obstruction, cholangitis will treat possible cholangitis as well as UTI with Imipenem Now on Imipenem. S/P new biliary stents. Bilirrubin did not improve, in fact it is trending up to 8.3 today 25 minute discussion today with patient and her two daughters at the bedside talked about going home on hospice, they agree and will talk with CM about setting up hospice services however, daughter Devin reluctant to change code status, will let her think about this palliative care officially consulted, will work on going home with hospice, hope to get POLST completed prior to discharge (2) Cholangitis: no fever, minimal abdominal pain with jaundice, bili up to 8.3 continue Imipenem while admitted (3) Acute UTI: Acute UTI -Had been treated for twice with Levaquin, however, is Levaquin resistant -UA relatively dirty, with concerns for continued current UTI -switched to imipenem, no fever continues to have UA with 10-30WBC, could be chronic issue (4) Liver mass: -CT noted enlarging R lobe hepatic mass measuring 10 cm and slight progression in intrahepatic biliary ductal dilatation. -Had 2 biliary stent placement by Dr. Machuca on 02/05/19 -Replaced on 07/12/19 -Elevated LFTs likely secondary to intermittent hemobilia vs biliary stent occlusions -Per record review, patients liver mass secondary to Hepatocellular Carcinoma per Dr. Candelaria's ([facility] [place] heme/onc) -GI Dr. Machuca recommends no further ERCP or stenting, recommends palliative approach (5) Colon cancer: h/o colon cancer (6) Chronic kidney disease, stage 3a: (7) Parkinson disease: -Continue Sinemet (8) Depression: -Continue Venlafaxine (9) Diabetes mellitus, type 2: -SSI with Lantus 14u QD -Continue ASA -Hold Lipitor (10) Hypertension: -held Coreg -Continue Imdur Dispo: Med/Surg Tele DVT: SCDs Code: Full (11) Sepsis: Patient treated on antibiotics. Admission and Anticipated Discharge Date Admission Date: July 11, 2019 Anticipated date of discharge: 07/17/19 Subjective patient resting comfortably she ate pancakes this morning minimal abdominal pain, no dyspnea, no fever/chills, no chest pain, no cough daughters at the bedside for end of life discussion they agree that her skin is more yellow, discussed that the bilirubin up at 8.3 discussed hospice, her daughters would like to take her home discussed code status, they are reluctant to change this, want everything done explained the contradiction of wanting to go home on hospice and wanting everything done explained that their mother could peacefully or violently, on a ventilator daughter Devin, the POA, said she would continue to think about this I talked with palliative care, they called daughter as well, again she did not want to talk about DNR status definitely will set up home hospice will try to get POLST completed prior to discharge to limit returns to hospital as she will certainly decline in the coming days to weeks reviewed labs, Bili up to 8.3, other LFT remain high Review of Systems Review of Systems: All systems reviewed & are unremarkable except as noted in HPI & below Physical Exam Constitutional: well nourished, + ill appearing and cooperative; no acute distress Eyes: PERRL and EOM intact bilaterally; sclerae not anicteric ENMT: external ear and nose normal, oropharynx normal Neck: trachea midline, no thyromegaly Respiratory: normal respiratory effort, lungs clear to auscultation Cardiovascular: RRR, no murmur, no edema Gastrointestinal (Abdomen): normal bowel sounds, soft, nontender, no hepatosplenomegaly Musculoskeletal: Head/Neck/Chest: normocephalic and head atraumatic Extre mities: extremities normal to inspection and + abnormal strength (generalized weakness); no cyanosis and no clubbing Skin: + jaundice; no rashes Neurologic: patellar DTR's 2+ bilat, sensation intact and PERRL, EOMI, accommodation nl, no face palsy, no dysarthria Psychiatric: Orientation: alert and oriented x 3 Lymphatic: no cervical or axillary lymphadenopathy Results & Data Results & Data ([facility]) Vital Signs (Past 12 Hours) Vital Signs Temp Pulse Pulse Pulse Resp BP BP 07/14/19 07:22 36.6 C 79 18 07/14/19 04:00 36.9 C 79 18 124/72 07/14/19 00:10 77 07/14/19 00:01 36.8 C 90 18 120/69 BP Pulse Ox 07/14/19 07:22 115/73 95 07/14/19 04:00 94 07/14/19 00:10 07/14/19 00:01 94 Laboratory Results Laboratory Results - last 24 hr 07/13/19 07/13/19 07/14/19 16:50 20:25 07:36 WBC RBC Hgb Hct MCV MCH MCHC RDW Std Deviation RDW Coeff of Cha Plt Count MPV Sodium Potassium Chloride Carbon Dioxide Anion Gap BUN Creatinine Est Cr Clr Drug Dosing Est GFR ( Amer) Est GFR (Non-Af Amer) BUN/Creatinine Ratio Glucose POC Glucose 148 H 111 H 98 Calcium Total Bilirubin Direct Bilirubin AST ALT Alkaline Phosphatase Total Protein Albumin Urine Color Urine Appearance Urine pH Ur Specific [place] Urine Protein Urine Glucose (UA) Urine Ketones Urine Blood Urine Nitrite Urine Bilirubin Urine Urobilinogen Ur Leukocyte Esterase Urine WBC (Auto) Urine RBC (Auto) U Hyaline Cast (Auto) U Epithel Cells (Auto) Urine Bacteria (Auto) 07/14/19 07/14/19 07/14/19 08:11 08:11 09:51 WBC 6.76 RBC 3.68 L Hgb 10.7 L Hct 33.5 L MCV 91.0 MCH 29.1 MCHC 31.9 L RDW Std Deviation 54.5 H RDW Coeff of Cha 16.4 H Plt Count 127 L MPV 12.0 H Sodium 134 L Potassium 3.8 Chloride 103 Carbon Dioxide 26 Anion Gap 5.0 BUN 20 H Creatinine 0.94 Est Cr Clr Drug Dosing 45.8 Est GFR ( Amer) 64.1 Est GFR (Non-Af Amer) 55.3 BUN/Creatinine Ratio 21.0 H Glucose 100 H POC Glucose Calcium 8.6 Total Bilirubin 8.3 H Direct Bilirubin 7.5 H AST 67 H ALT 7 L Alkaline Phosphatase 413 H Total Protein 6.3 L Albumin 1.8 L Urine Color Dark Yellow Urine Appearance Clear Urine pH 6.0 Ur Specific [place] 1.011 Urine Protein Negative Urine Glucose (UA) Negative Urine Ketones Negative Urine Blood Negative Urine Nitrite Negative Urine Bilirubin 2+ H Urine Urobilinogen Negative Ur Leukocyte Esterase 3+ H Urine WBC (Auto) 10-30 H Urine RBC (Auto) 0-4 U Hyaline Cast (Auto) 1-5 U Epithel Cells (Auto) >30 H Urine Bacteria (Auto) Negative 07/14/19 11:53 WBC RBC Hgb Hct MCV MCH MCHC RDW Std Deviation RDW Coeff of Cha Plt Count MPV Sodium Potassium Chloride Carbon Dioxide Anion Gap BUN Creatinine Est Cr Clr Drug Dosing Est GFR ( Amer) Est GFR (Non-Af Amer) BUN/Creatinine Ratio Glucose POC Glucose 226 H Calcium Total Bilirubin Direct Bilirubin AST ALT Alkaline Phosphatase Total Protein Albumin Urine Color Urine Appearance Urine pH Ur Specific [place] Urine Protein Urine Glucose (UA) Urine Ketones Urine Blood Urine Nitrite Urine Bilirubin Urine Urobilinogen Ur Leukocyte Esterase Urine WBC (Auto) Urine RBC (Auto) U Hyaline Cast (Auto) U Epithel Cells (Auto) Urine Bacteria (Auto) Medications Administered Current Inpatient Medications Acetaminophen (Tylenol) 1,000 mg PO Q6H PRN PRN Reason: Fever Stop: 08/11/19 07:15 Last Admin: 07/12/19 07:22 Dose: 1,000 mg Documented by: Aspirin (Ecotrin Ectab) 81 mg PO QAM [facility] Stop: 08/11/19 08:59 Last Admin: 07/14/19 07:46 Dose: 81 mg Documented by: Carbidopa/Levodopa (Sinemet Cr 50/200mg) 1 tab PO TID [facility] Stop: 08/11/19 08:59 Last Admin: 07/14/19 14:00 Dose: 1 tab Documented by: Carvedilol (Coreg) 6.25 mg PO BIDM [facility] Stop: 08/11/19 07:59 Last Admin: 07/13/19 08:00 Dose: 6.25 mg Documented by: Dextrose (Dextrose 50%) 25 - 50 ml IV UD PRN; Protocol PRN Reason: Hypoglycemia Protocol Stop: 08/11/19 00:38 Ferrous Sulfate (Feosol) 325 mg PO BIDM [facility] Stop: 08/11/19 07:59 Last Admin: 07/14/19 07:46 Dose: 325 mg Documented by: Folic Acid (Folvite) 1 mg PO DAILY [facility] Stop: 08/11/19 08:59 Last Admin: 07/14/19 07:45 Dose: 1 mg Documented by: Glucagon (Glucagen) 1 mg SQ UD PRN; Protocol PRN Reason: Hypoglycemia Protocol Stop: 08/11/19 00:38 Glucose (Dex4 Glucose) 4 - 8 tabs PO UD PRN; Protocol PRN Reason: Hypoglycemia Protocol Stop: 08/11/19 00:38 Glucose (Glucose 40%) 15 - 30 gm PO UD PRN; Protocol PRN Reason: Hypoglycemia Protocol Stop: 08/11/19 00:38 Imipenem/Cilastatin Sodium 300 (mg/ Dextrose) 106 mls @ 106 mls/hr IV Q6H [facility] Stop: 07/22/19 13:59 Last Infusion: 07/14/19 12:06 Dose: Infused Documented by: Insulin Aspart (Fiasp 100 Unit/Ml Vial) 0 units SQ AC [facility] Stop: 08/11/19 11:29 Last Admin: 07/14/19 12:33 Dose: 6 units Documented by: Insulin Degludec (Tresiba Flextouch U-200) 22 units SQ QAM [facility] Stop: 08/11/19 09:59 Last Admin: 07/14/19 08:55 Dose: 22 units Documented by: Isosorbide Mononitrate (Imdur Extended Rel) 30 mg PO DAILY [facility] Stop: 08/11/19 08:59 Last Admin: 07/14/19 07:45 Dose: 30 mg Documented by: Midodrine (Proamatine) 5 mg PO TID@0800,1200,1700 [facility] Stop: 08/12/19 11:59 Last Admin: 07/14/19 12:38 Dose: 5 mg Documented by: Miscellaneous (Carbohydrates For Hypoglycemia) 15 - 30 gm PO UD PRN PRN Reason: Hypoglycemia Protocol Stop: 08/11/19 00:38 Miscellaneous Information (Consult) 1 ea N/A UD PRN PRN Reason: Consult Stop: 08/11/19 12:18 Oxycodone HCl (Oxycontin) 20 mg PO Q12H [facility] Stop: 07/26/19 19:59 Last Admin: 07/14/19 07:51 Dose: 20 mg Documented by: Oxycodone HCl (Roxicodone Immediate Rel) 5 mg PO Q6H PRN PRN Reason: Pain Stop: 07/26/19 16:59 Pantoprazole Sodium (Protonix) 40 mg PO QAM [facility] Stop: 08/11/19 08:59 Last Admin: 07/14/19 07:46 Dose: 40 mg Documented by: Polyethylene Glycol (Miralax Powder Packet) 17 gm PO DAILY PRN PRN Reason: Constipation Stop: 08/11/19 09:51 Last Admin: 07/14/19 07:52 Dose: 17 gm Documented by: Pregabalin (Lyrica) 25 mg PO QAM [facility] Stop: 08/11/19 08:59 Last Admin: 07/14/19 07:52 Dose: 25 mg Documented by: Pregabalin (Lyrica) 50 mg PO HS [facility] Stop: 08/11/19 20:59 Last Admin: 07/13/19 20:36 Dose: 50 mg Documented by: Venlafaxine HCl (Effexor Extended Release) 37.5 mg PO DAILY [facility] Stop: 08/11/19 08:59 Last Admin: 07/14/19 07:46 Dose: 37.5 mg Documented by: PG Care Time/CCT Total # of Minutes Spent Total Time Spent: 70 Total Time Spent with Patient: Total time spent is greater than 50% in coordination of care (as documented) at patient's floor/unit and/or counseling patient: 35 minutes spent talking with daughters at the bedside and out in the hallway about prognosis, plan for hospice, code status spoke at length with Rani BOOKER palliative care reviewed chart and lab work Prolonged Care Time Prolonged Care Time: Yes Total Prolonged Care Time: 30 Coding Level of Care Code 33279 Subseq Hosp Care Lvl 3 Diagnoses Common bile duct obstruction K83.1 Cholangitis K83.09 Acute UTI N39.0 Liver mass R16.0 Colon cancer C18.9 Chronic kidney disease, stage 3a N18.3 Parkinson disease G20 Depression F32.9 Diabetes mellitus, type 2 E11.69; Z79.4 Diabetes mellitus complication status: with other specified complication Diabetes mellitus alf insulin use: with ad terminal makeup operator use Hypertension I10 Hypertension type: essential hypertension Sepsis A41.9 Additional Codes Prolonged Care Time - Prolonged Care Time: Yes ([id number]) (1) Diabetes mellitus, type 2 Diabetes mellitus complication status: with other specified complication Diabetes mellitus alf insulin use: with ad terminal makeup operator use Qualified Code(s): E11.69 - Type 2 diabetes mellitus with other specified complication; Z79.4 - long term (current) use of insulin (2) Hypertension Hypertension type: essential hypertension Qualified Code(s): I10 - Essential (primary) hypertension
--- NOTE | 2019-07-14 12:34 | Palliative Care Consultation ---
Date of Consultation July 14, 2019 Assessment & Plan (1) Goals of care, counseling/discussion: -83 year old female patient with PMH Parkinson's disease, CKD Stage 3, colon cancer, liver mass, Afib, and chronic UTI's, presented to the hospital three days ago with c/o abdominal pain for two weeks prior. UA abnormal, patient started on abx. Urine cx growing E. Coli, blood cultures NGTD. CT imaging noted enlarging right lobe hepatic mass measuring 10 cm and slight progression in intrahepatic biliary ductal dilatation. Patient had two biliary stents placed in February 2019 at our facility. Patient follows with heme/onc Dr. Candelaria at [facility] for hepatocellular carcinoma. Apparently she is not receiving treatment currently due to the incurable nature of her disease. On arrival, LFTs elevated. Patient underwent ERCP to evaluation stents-- did have malignant obstruction and had elongation of stents. LFTs without significant improvement. INR normal, but albumin is 1.8 which is a poor prognostic sign. Despite having conversations about terminal nature of patient's illness, patient and her daughter maintain that they want full code and full treatment. Palliative care is consulted to discuss goals of care. -Patient to be seen by palliative MD this afternoon. She is alert and oriented per documentation, able to make her own decisions. Will engage with patient's daughter/family with her permission. -Patient was seen by palliative care back in February 2019, but did not want to make any decisions on goals of care or code status at that time. Her son had just from lung cancer on 02/04 shortly before her hospitalization, making it difficult to discuss such matters. -Given patient's advanced, progressing illness, no treatment options other than palliative measures, an albumin of 1.8 and seemingly worsening performance status, her prognosis is quite poor. This will be discussed with patient and family if she is willing. -Previously, saskia went to [facility] after hospitalization. Uncertain of her discharge needs at this time. I believe her daughter, Devin, lives with her. Patient would certainly be a candidate for home hospice if she wishes. -Further recommendations/discussion to follow. We will continue following. Update: Palliative MD saw patient. She is somewhat lethargic. Patient able to state that she is okay with going home with hospice under the care of her daughter, Devin. Unable to discuss code status with patient due to drowsiness. I spoke with Devin. She confirms that plan is for patient to go home with hospice on Sunday or . Daughter is contacting [facility] herself and I will update caseworker protective services on this. Daughter did NOT want to discuss resuscitation status any further today, so hospice can address this once patient gets home. Devin requested updates from doctor daily if possible. (2) Common bile duct obstruction: (3) Liver cancer: (4) Sepsis: Supervising Physician Co-Signing Physician Notes Chart reviewed, patient seen and examined. Collaborated with JHONY Saunders. Patient awake, obviously jaundiced was able to give the correct urine month. Patient alert but speech is slow and answers questions with 1-2 words. Did talk with patient about the possibility of going home with hospice care- patient agreeable. Did not discuss CODE STATUS at this time as patient not alert enough for complex medical decision making. Patient also has a total bilirubin of 8.3 which can interfere with cognition PE: Patient awake, alert, no acute distress patient denies pain on exam HEENT: EOMI, hearing within normal limits Respirations: Unlabored, clear breath sounds CV: Regular rate Abdomen: Soft, nontender to light palpation Neuro: Alert, oriented to person place and time, somewhat drowsy, unable to participate in complex medical decision making. Skin: Jaundiced Agree with above note, assessment and plan as per JHONY Saunders. Family agreeable to having patient return home under hospice care. Family to decide on CODE STATUS after discharge. History of Present Illness Attending Physician: Juan Shoemaker DO History of Present Illness This 83 year old female patient with PMH Parkinson's disease, CKD Stage 3, colon cancer, liver mass, Afib, and chronic UTI's, presented to the hospital three days ago with c/o abdominal pain for two weeks prior. UA abnormal, patient started on abx. Urine cx growing E. Coli, blood cultures NGTD. CT imaging noted enlarging right lobe hepatic mass measuring 10 cm and slight progression in intrahepatic biliary ductal dilatation. Patient had two biliary stents placed in February 2019 at our facility. Patient follows with heme/onc Dr. Candelaria at [facility] for hepatocellular carcinoma. Apparently she is not receiving treatment currently due to the incurable nature of her disease. On arrival, LFTs elevated. Patient underwent ERCP to evaluation stents-- did have malignant obstruction and had elongation of stents. LFTs without significant improvement. INR normal, but albumin is 1.8 which is a poor prognostic sign. Despite having conversations abo ut terminal nature of patient's illness, patient and her daughter maintain that they want full code and full treatment. Palliative care is consulted to discuss goals of care. Thank you kindly for this consult. Palliative care team will follow as needed. Allergies Allergy/AdvReac Type Severity Reaction Status Date / Time Iodinated Contrast Media Allergy Intermediate IV Verified 07/11/19 20:21 CONTRAST- HIVES Bactrim Allergy Unknown patient Verified 09/21/16 05:17 unsure Cipro Allergy Unknown unknown Verified 09/21/16 05:17 ciprofloxacin Allergy Unknown unknown Verified 07/11/19 20:21 nitrofurantoin Allergy Unknown unknown Verified 07/11/19 20:21 sulfamethoxazole Allergy Unknown patient Verified 07/11/19 20:21 unsure trimethoprim Allergy Unknown patient Verified 07/11/19 20:21 unsure acarbose AdvReac Mild GI SYMPTOMS Verified 07/11/19 20:21 azithromycin AdvReac Mild dizzy/nause Verified 07/11/19 20:21 a insulin glargine AdvReac Mild "Very ill" Verified 07/11/19 20:21 [From Lantus U-100 Insulin] - see comments metformin AdvReac Mild GI SYMPTOMS Verified 02/02/19 10:48 Penicillins AdvReac Mild dizzy, Verified 02/02/19 10:48 nausous (per patient) tolerated zosyn [id number] troglitazone AdvReac Mild GI SYMPTOMS Verified 02/02/19 10:48 Home Medications Home Medications Medication Instructions Recorded Confirmed Type carvedilol 6.25 mg PO BIDM 06/11/18 07/11/19 History folic acid 1 mg PO DAILY 06/11/18 07/11/19 History pantoprazole 40 mg PO QAM 06/11/18 07/11/19 History Fiasp FlexTouch U-100 Insulin See Rx Instructions .ROUTE .COMPLEX 08/24/18 07/11/19 History Tresiba FlexTouch U-200 22 unit SUBCUT QAM 08/24/18 07/11/19 History aspirin [Aspirin Low Dose] 81 mg PO QAM 08/24/18 07/11/19 History atorvastatin 40 mg PO DAILY 08/24/18 07/11/19 History isosorbide mononitrate 30 mg PO DAILY 08/24/18 07/11/19 History oxycodone [OxyContin] 20 mg PO Q12H #6 tab 08/29/18 07/11/19 Rx ferrous sulfate 325 mg PO BID 09/14/18 07/11/19 History oxycodone 5 mg PO Q6 PRN 09/14/18 07/11/19 History nitroglycerin [Nitrostat] 0.4 mg SUBLINGUAL PRN PRN #30 tab 02/11/19 07/11/19 Rx polyethylene glycol 3350 [Miralax] 17 g PO DAILY #30 ea 02/11/19 07/11/19 Rx acetaminophen [Tylenol] 650 mg PO QID PRN 07/11/19 07/11/19 History carbidopa-levodopa 1 tab PO TID 07/11/19 07/11/19 History melatonin 3 mg PO HS PRN 07/11/19 07/11/19 History nystatin 1 applic TOPICAL BID 07/11/19 07/11/19 History ondansetron 4 mg PO TID PRN 07/11/19 07/11/19 History pregabalin [Lyrica] 25 mg PO QAM 07/11/19 07/11/19 History pregabalin [Lyrica] 50 mg PO HS 07/11/19 07/11/19 History sennosides [Senokot] 17.2 mg PO HS 07/11/19 07/11/19 History venlafaxine 37.5 mg PO DAILY 07/12/19 07/12/19 History Patient History Medical History (Updated 07/13/19 @ 10:18 by Lokesh Alonso) Atrial fibrillation (Chronic) "per old records" Cholangitis Chronic pain syndrome (Chronic) "arthritis + neuropathy" Common bile duct obstruction Coronary artery disease (Chronic) "s/p PCI ? [place]" Diabetes mellitus, type 2 (Chronic) Diabetic neuropathy (Chronic) GERD (gastroesophageal reflux disease) (Chronic) Hypertension (Chronic) Liver cancer Parkinson's disease (Chronic) Recurrent urinary tract infection (Chronic) Surgical History (Updated 07/12/19 @ 13:38 by Diego Burris MD) Hx of endoscopic retrograde cholangiopancreatography June [address] Status post cardiac catheterization (Chronic) Status post cholecystectomy (Chronic) Status post coronary artery stent placement (Chronic) Family History Other Myocardial infarction Social History Preferred Language: Portuguese Communication Ability: Effective Stress Test Technician Required: No Beliefs That Will Affect Care: None marital status: / Current Living Situation: Family Current Living Situation Comment: Son and Daughter Other Information That Helps Us Care for You: No Feels Safe at Home: No Is there a partner from a previous relationship who is making you feel unsafe now?: No Any Concerns about Your Family Situation: No Would You Like to Speak to Someone About Your Situation: No Safety Concerns: Feels Safe At This Time Smoking Status: Former smoker Do You Dip or Chew Tobacco: No ; Second Hand Exposure: No ; Tobacco Cessation Education Requested by Patient: No Hx Alcohol Use: No Hx Substance Use: No Results & Data Vital Signs (Past 12 Hours) Vital Signs Temp Pulse Pulse Resp BP BP Pulse Ox 07/14/19 11:23 36.9 C 79 20 112/69 94 07/14/19 07:22 36.6 C 79 18 115/73 95 07/14/19 04:00 36.9 C 79 18 124/72 94 Coding Level of Care Code 69325 Inpt Consult Level 3 Diagnoses Goals of care, counseling/discussion Z71.89 Common bile duct obstruction K83.1 Liver cancer C22.9 Sepsis A41.9 Time Spent (min) 95 Time Spent Midlevel A total of 70 minutes spent by this LASER ENGRAVER in reviewing chart, speaking with attending and palliative MDs, IDT, and patient's family regarding condition and goals of care. Attending Spent 25 minutes in addition to this 70 minutes spent by JHONY Saunders for total of 95 minutes with greater than 50% of the time spent at bedside and collaborating with regarding goals of care with family.
[2019-07-14] MEDS: PREGABALIN 50 MG CAP PO SCH (20:41)
[2019-07-15] MEDS: IMIPENEM/CILASTATIN SODIUM 300 MG in DEXTROSE 5% 100 ML IV SCH ×2 (04:03→11:00)
[2019-07-15 06:07] LABS: Hematocrit (blood only) 34.8 % (37-47); Hemoglobin 10.8 g/dL (12.0-16.0); Mean Corpuscular Hemoglobin 28.3 pg (25-34); Mean Corpuscular Volume 91.1 fL (80-100); Mean Platelet Volume 12.2 fL (7.4-10.4); Platelet Count 158 K/uL (130-400); RDW Coefficient of Variation 16.3 % (11.5-14.5); RDW Standard Deviation 54.9 fL (36.4-46.3); Red Blood Count 3.82 M/uL (4.2-5.4); White Blood Count 6.36 K/uL (4.8-10.8)
[2019-07-15 06:43] LABS: Albumin Globulin Ratio 0.4 (0.9-2); Albumin Level 1.7 gm/dl (3.4-5.0); BUN Creatinine Ratio 22.1 (10-20); Bilirubin,Total 8.1 mg/dl (0.2-1); Calcium 8.7 mg/dl (8.5-10.1); Creatinine Clr Calc Pharmacy 57.5 ml/min; Est GFR (African American) 84.2; Est GFR (Non-African American) 72.7; Globulin 4.7 gm/dl (2.5-4.0); Potassium 4.2 mmol/L (3.5-5.1); Total Protein 6.4 gm/dl (6.4-8.2)
[2019-07-15] MEDS: ISOSORBIDE MONO EXTENDED REL 30 MG TABCR PO SCH (09:08)
[2019-07-15] MEDS: CARBIDOPA/LEVODOPA 50/200MG EXT REL TAB PO SCH ×3 (09:09→20:27)
[2019-07-15] MEDS: FERROUS SULFATE 325 MG TAB PO SCH ×2 (09:09→17:12)
[2019-07-15] MEDS: PANTOprazole 40 MG TAB PO SCH (09:09)
[2019-07-15] MEDS: ASPIRIN 81 MG ECTAB PO SCH (09:10)
[2019-07-15] MEDS: MIDODRINE HCL 2.5 MG TAB PO SCH ×3 (09:10→17:12)
[2019-07-15] MEDS: VENLAFAXINE HCL XR 37.5 MG CAPXR PO SCH (09:10)
[2019-07-15] MEDS: FOLIC ACID 1 MG TAB PO SCH (09:10)
[2019-07-15] MEDS: INSULIN DEGLUDEC 200 UNIT/ML SQ SCH (09:11)
[2019-07-15] MEDS: OXYCODONE HCL 20 MG TABCR (OXYCONTIN) PO SCH ×2 (09:20→19:41)
[2019-07-15] MEDS: INSULIN ASPART 100 UNIT/ML SQ SCH ×3 (09:21→17:11)
[2019-07-15] MEDS: PREGABALIN 25 MG CAP PO SCH (09:25)
[2019-07-15] MEDS: POLYETHYLENE (MIRALAX) 17 GM PACK PO PRN (09:32)
[2019-07-15] MEDS ORDERED: PIPERACILL/TAZOBAC CONSULT ACTIVE PRN (14:55)
--- NOTE | 2019-07-15 14:59 | Hospitalist Progress Note ---
Date of Service July 15, 2019 Assessment & Plan (1) Common bile duct obstruction: Patient has known liver mass, HCC, and has had history of biliary stents due to obstruction, cholangitis will treat possible cholangitis as well as UTI with Imipenem change to Zosyn based on urine culture likely change to Augmentin on discharge if she can tolerate it S/P new biliary stents. Bilirrubin did not improve, it remains elevated at 8.1 today plan for home hospice tomorrow will try to get POLST completed, palliative care consulted (2) Cholangitis: no fever, minimal abdominal pain with jaundice, bili up to 8.1 continue Zosyn, try Augmentin on discharge if she can tolerate (3) Acute UTI: Acute UTI -Had been treated for twice with Levaquin, however, is Levaquin resistant -UA relatively dirty, with concerns for continued current UTI urine culture with E coli, change from Imipenem to Zosyn for now (4) Liver mass: -CT noted enlarging R lobe hepatic mass measuring 10 cm and slight progression in intrahepatic biliary ductal dilatation. -Had 2 biliary stent placement by Dr. Machuca on 02/05/19 -Replaced on 07/12/19 -Elevated LFTs likely secondary to intermittent hemobilia vs biliary stent occlusions -Per record review, patients liver mass secondary to Hepatocellular Carcinoma per Dr. Candelaria's ([facility] heme/onc) -GI Dr. Machuca recommends no further ERCP or stenting, recommends palliative approach (5) Colon cancer: h/o colon cancer (6) Chronic kidney disease, stage 3a: (7) Parkinson disease: -Continue Sinemet (8) Depression: -Continue Venlafaxine (9) Diabetes mellitus, type 2: -SSI with Lantus 14u QD -Continue ASA -Hold Lipitor (10) Hypertension: -held Coreg -Continue Imdur (11) Sepsis: Patient treated on antibiotics. Admission and Anticipated Discharge Date Admission Date: July 11, 2019 Subjective patient resting today, says she has some mild nausea and her feet hurt she says her feet always hurt from her neuropathy she was able to eat breakfast reviewed labs, Bili is 8 and alk phos 400's CBC is stable, Cr is stable called daughter Devin to provide update, she was meeting with hospice at her home, should have everything ready tomorrow Review of Systems Review of Systems: All systems reviewed & are unremarkable except as noted in HPI & below Constitutional: + fatigue and + weakness Gastrointestinal: + nausea Musculoskeletal: + joint pain (foot pain) Physical Exam Constitutional: well nourished, + ill appearing and cooperative; no acute distress Eyes: PERRL and EOM intact bilaterally; sclerae not anicteric ENMT: external ear and nose normal, oropharynx normal Neck: trachea midline, no thyromegaly Respiratory: normal respiratory effort, lungs clear to auscultation Cardiovascular: RRR, no murmur, no edema Gastrointestinal (Abdomen): normal bowel sounds, soft, nontender, no hepatosplenomegaly Musculoskeletal: Head/Neck/Chest: normocephalic and head atraumatic Extremities: extremities normal to inspection and + abnormal strength (generalized weakness); no cyanosis and no clubbing Skin: + jaundice; no rashes Neurologic: patellar DTR's 2+ bilat, sensation intact and PERRL, EOMI, accommodation nl, no face palsy, no dysarthria Psychiatric: Orientation: alert and oriented x 3 Lymphatic: no cervical or axillary lymphadenopathy Results & Data Results & Data ([facility]) Vital Signs (Past 12 Hours) Vital Signs Temp Pulse Pulse Pulse Resp BP Pulse Ox 07/15/19 11:22 36.7 C 71 18 138/81 99 07/15/19 07:15 64 07/15/19 06:47 36.7 C 71 18 126/79 97 07/15/19 03:36 36.7 C 76 16 115/71 96 Laboratory Results Laboratory Results - last 24 hr 07/14/19 07/14/19 07/15/19 16:22 20:00 05:38 WBC 6.36 RBC 3.82 L Hgb 10.8 L Hct 34.8 L MCV 91.1 MCH 28.3 MCHC 31.0 L RDW Std Deviation 54.9 H RDW Coeff of Cha 16.3 H Plt Count 158 MPV 12.2 H Sodium Potassium Chloride Carbon Dioxide Anion Gap BUN Creatinine Est Cr Clr Drug Dosing Est GFR ( Amer) Est GFR (Non-Af Amer) BUN/Creatinine Ratio Glucose POC Glucose 174 H 116 H Calcium Total Bilirubin AST ALT Alkaline Phosphatase Total Protein Albumin Globulin Albumin/Globulin Ratio Specimen Hemolysis 07/15/19 07/15/19 07/15/19 05:38 07:29 11:26 WBC RBC Hgb Hct MCV MCH MCHC RDW Std Deviation RDW Coeff of Cha Plt Count MPV Sodium 137 Potassium 4.2 Chloride 104 Carbon Dioxide 28 Anion Gap 5.0 BUN 17 Creatinine 0.75 Est Cr Clr Drug Dosing 57.5 Est GFR ( Amer) 84.2 Est GFR (Non-Af Amer) 72.7 BUN/Creatinine Ratio 22.1 H Glucose 76 POC Glucose 87 187 H Calcium 8.7 Total Bilirubin 8.1 H AST 67 H ALT 9 L Alkaline Phosphatase 437 H Total Protein 6.4 Albumin 1.7 L Globulin 4.7 H Albumin/Globulin Ratio 0.4 L Specimen Hemolysis Medications Administered Current Inpatient Medications Acetaminophen (Tylenol) 1,000 mg PO Q6H PRN PRN Reason: Fever Stop: 08/11/19 07:15 Last Admin: 07/12/19 07:22 Dose: 1,000 mg Documented by: Aspirin (Ecotrin Ectab) 81 mg PO QAM [facility] Stop: 08/11/19 08:59 Last Admin: 07/15/19 09:10 Dose: 81 mg Documented by: Carbidopa/Levodopa (Sinemet Cr 50/200mg) 1 tab PO TID [facility] Stop: 08/11/19 08:59 Last Admin: 07/15/19 13:32 Dose: 1 tab Documented by: Carvedilol (Coreg) 6.25 mg PO BIDM [facility] Stop: 08/11/19 07:59 Last Admin: 07/13/19 08:00 Dose: 6.25 mg Documented by: Dextrose (Dextrose 50%) 25 - 50 ml IV UD PRN; Protocol PRN Reason: Hypoglycemia Protocol Stop: 08/11/19 00:38 Ferrous Sulfate (Feosol) 325 mg PO BIDM [facility] Stop: 08/11/19 07:59 Last Admin: 07/15/19 09:09 Dose: 325 mg Documented by: Folic Acid (Folvite) 1 mg PO DAILY [facility] Stop: 08/11/19 08:59 Last Admin: 07/15/19 09:10 Dose: 1 mg Documented by: Glucagon (Glucagen) 1 mg SQ UD PRN; Protocol PRN Reason: Hypoglycemia Protocol Stop: 08/11/19 00:38 Glucose (Dex4 Glucose) 4 - 8 tabs PO UD PRN; Protocol PRN Reason: Hypoglycemia Protocol Stop: 08/11/19 00:38 Glucose (Glucose 40%) 15 - 30 gm PO UD PRN; Protocol PRN Reason: Hypoglycemia Protocol Stop: 08/11/19 00:38 Piperacillin Sod/Tazobactam (Sod 3.375 gm/ Dextrose) 115 mls @ 28.75 mls/hr IV Q8H [facility] Stop: 07/25/19 14:59 Insulin Aspart (Fiasp 100 Unit/Ml Vial) 0 units SQ AC SARAH Stop: 08/11/19 11:29 Last Admin: 07/15/19 12:41 Dose: 5 units Documented by: Insulin Degludec (Tresiba Flextouch U-200) 22 units SQ QAM [facility] Stop: 08/11/19 09:59 Last Admin: 07/15/19 09:11 Dose: 22 units Documented by: Isosorbide Mononitrate (Imdur Extended Rel) 30 mg PO DAILY [facility] Stop: 08/11/19 08:59 Last Admin: 07/15/19 09:08 Dose: 30 mg Documented by: Midodrine (Proamatine) 5 mg PO TID@0800,1200,1700 [facility] Stop: 08/12/19 11:59 Last Admin: 07/15/19 12:40 Dose: 5 mg Documented by: Miscellaneous (Carbohydrates For Hypoglycemia) 15 - 30 gm PO UD PRN PRN Reason: Hypoglycemia Protocol Stop: 08/11/19 00:38 Miscellaneous Information (Consult) 1 ea N/A UD PRN PRN Reason: Consult Stop: 08/11/19 12:18 Miscellaneous Information (Consult) 1 ea N/A UD PRN PRN Reason: Consult Stop: 08/14/19 14:54 Oxycodone HCl (Oxycontin) 20 mg PO Q12H [facility] Stop: 07/26/19 19:59 Last Admin: 07/15/19 09:20 Dose: 20 mg Documented by: Oxycodone HCl (Roxicodone Immediate Rel) 5 mg PO Q6H PRN PRN Reason: Pain Stop: 07/26/19 16:59 Pantoprazole Sodium (Protonix) 40 mg PO QAM [facility] Stop: 08/11/19 08:59 Last Admin: 07/15/19 09:09 Dose: 40 mg Documented by: Polyethylene Glycol (Miralax Powder Packet) 17 gm PO DAILY PRN PRN Reason: Constipation Stop: 08/11/19 09:51 Last Admin: 07/15/19 09:32 Dose: 17 gm Documented by: Pregabalin (Lyrica) 25 mg PO QAM [facility] Stop: 08/11/19 08:59 Last Admin: 07/15/19 09:25 Dose: 25 mg Documented by: Pregabalin (Lyrica) 50 mg PO HS [facility] Stop: 08/11/19 20:59 Last Admin: 07/14/19 20:41 Dose: 50 mg Documented by: Venlafaxine HCl (Effexor Extended Release) 37.5 mg PO DAILY [facility] Stop: 08/11/19 08:59 Last Admin: 07/15/19 09:10 Dose: 37.5 mg Documented by: PG Care Time/CCT Total # of Minutes Spent Total Time Spent with Patient: Total time spent is greater than 50% in coordination of care (as documented) at patient's floor/unit and/or counseling patient: Coding Level of Care Code 93518 Subseq Hosp Care Lvl 2 Diagnoses Common bile duct obstruction K83.1 Cholangitis K83.09 Acute UTI N39.0 Liver mass R16.0 Colon cancer C18.9 Chronic kidney disease, stage 3a N18.3 Parkinson disease G20 Depression F32.9 Diabetes mellitus, type 2 E11.69; Z79.4 Diabetes mellitus complication status: with other specified complication 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
[2019-07-15] MEDS ORDERED: PIPERACILLIN/TAZOBACTAM 3.375 GM in DEXTROSE 5% 100 ML IV SCH (15:00)
[2019-07-15] MEDS ORDERED: PIPERACILLIN/TAZOBACTAM 3.375 GM in DEXTROSE 5% 100 ML IV ONE (15:00)
[2019-07-15] MEDS ORDERED: ONDANSETRON INJ 2 MG/ML 2 ML VIAL IV PRN (15:05)
[2019-07-15] MEDS: PREGABALIN 50 MG CAP PO SCH (20:27)
[2019-07-15] MEDS: PIPERACILLIN/TAZOBACTAM 3.375 GM in DEXTROSE 5% 100 ML IV SCH (21:40)
[2019-07-16] MEDS: PIPERACILLIN/TAZOBACTAM 3.375 GM in DEXTROSE 5% 100 ML IV SCH (05:54)
[2019-07-16] MEDS: PREGABALIN 25 MG CAP PO SCH (08:35)
[2019-07-16] MEDS: OXYCODONE HCL 20 MG TABCR (OXYCONTIN) PO SCH (08:35)
[2019-07-16] MEDS: MIDODRINE HCL 2.5 MG TAB PO SCH (08:36)
[2019-07-16] MEDS: CARBIDOPA/LEVODOPA 50/200MG EXT REL TAB PO SCH (08:36)
[2019-07-16] MEDS: PANTOprazole 40 MG TAB PO SCH (08:36)
[2019-07-16] MEDS: ASPIRIN 81 MG ECTAB PO SCH (08:36)
[2019-07-16] MEDS: FERROUS SULFATE 325 MG TAB PO SCH (08:36)
[2019-07-16] MEDS: FOLIC ACID 1 MG TAB PO SCH (08:36)
[2019-07-16] MEDS: VENLAFAXINE HCL XR 37.5 MG CAPXR PO SCH (08:36)
[2019-07-16] MEDS: ISOSORBIDE MONO EXTENDED REL 30 MG TABCR PO SCH (08:36)
[2019-07-16] MEDS: INSULIN DEGLUDEC 200 UNIT/ML SQ SCH (08:39)
[2019-07-16] MEDS: INSULIN ASPART 100 UNIT/ML SQ SCH (08:41)
--- NOTE | 2019-07-18 09:10 | Discharge Summary ---
Date of Service July 16, 2019 Admission HPI Per Admitting Provider Patient is an 83 year old female with PMHx Parkinsons Disease, CKD Stage 3, Colon Cancer, Liver Mass, AFib, and Chronic UTI's who presents with chief complaint of abdominal pain x2 weeks. Patient notes that when her pain started 2 weeks ago it was a sharp stabbing pain in her abdominal RUQ rated 7/10. She notes that the pain comes and goes and that it typically worsens when eating. She also notes that she has been having increasingly worsening b/l LE weakness, but that it significantly worsened in the past 2 weeks. She notes that her legs "feel heavy" and that her knees buckle. She denies any changes in mentation, confusion, memory loss, fever, chills, dysuria, hematuria. She notes that she is currently not having any pain. Principal Diagnosis Advanced hepatocellular carcinoma Discharge Exam Constitutional well nourished, + ill appearing and cooperative; no acute distress Eyes PERRL and EOM intact bilaterally; sclerae not anicteric ENMT external ear and nose normal, oropharynx normal Neck trachea midline, no thyromegaly Respiratory normal respiratory effort, lungs clear to auscultation Cardiovascular RRR, no murmur, no edema Gastrointestinal (Abdomen) normal bowel sounds, soft, nontender, no hepatosplenomegaly Musculoskeletal Head/Neck/Chest: normocephalic and head atraumatic Extremities: extremities normal to inspection and + abnormal strength (generalized weakness); no cyanosis and no clubbing Skin + jaundice; no rashes Neurologic patellar DTR's 2+ bilat, sensation intact and PERRL, EOMI, accommodation nl, no face palsy, no dysarthria Psychiatric Orientation: alert and oriented x 3 Lymphatic no cervical or axillary lymphadenopathy Discharge Data Allergies Allergy/AdvReac Type Severity Reaction Status Date / Time Iodinated Contrast Media Allergy Intermediate IV Verified 07/11/19 20:21 CONTRAST- HIVES Bactrim Allergy Unknown patient Verified 09/21/16 05:17 unsure Cipro Allergy Unknown unknown Verified 09/21/16 05:17 ciprofloxacin Allergy Unknown unknown Verified 07/11/19 20:21 nitrofurantoin Allergy Unknown unknown Verified 07/11/19 20:21 sulfamethoxazole Allergy Unknown patient Verified 07/11/19 20:21 unsure trimethoprim Allergy Unknown patient Verified 07/11/19 20:21 unsure acarbose AdvReac Mild GI SYMPTOMS Verified 07/11/19 20:21 azithromycin AdvReac Mild dizzy/nause Verified 07/11/19 20:21 a insulin glargine AdvReac Mild "Very ill" Verified 07/11/19 20:21 [From Lantus U-100 Insulin] - see comments metformin AdvReac Mild GI SYMPTOMS Verified 02/02/19 10:48 Penicillins AdvReac Mild dizzy, Verified 02/02/19 10:48 nausous (per patient) tolerated zosyn [id number] troglitazone AdvReac Mild GI SYMPTOMS Verified 02/02/19 10:48 Consultations 07/11/19 23:35 ED Decision to Admit Stat 07/12/19 11:46 Consult Pets [employer] Pet Supp[employer] Salesperson Stat 07/12/19 11:49 Consult Gastroenterology Routine 07/14/19 08:06 Consult Palliative Care Routine Procedures Performed Operation Date: 07/12/19 13:30 Actual Procedures p Endoscopic Retrograde Cholangiopancreatogram(Not Applicable) - Ellis Machuca MD Ordered Studies 07/11/19 20:15 CT abd pelvis wo con Stat 07/12/19 13:44 [place] ERCP biliary ductal Routine Hospital Course (1) Common bile duct obstruction: Patient has known liver mass, HCC, and has had history of biliary stents due to obstruction, cholangitis will treat possible cholangitis as well as UTI with Imipenem change to Zosyn based on urine culture change to Augmentin on discharge if she can tolerate it, complete 5 more days S/P new biliary stents. Bilirrubin did not improve, it remains elevated at 8.1 on day prior to discharge plan for home hospice today will try to get POLST completed, palliative care consulted (2) Cholangitis: no fever, minimal abdominal pain with jaundice, bili up to 8.1 continue Zosyn, try Augmentin on discharge if she can tolerate (3) Acute UTI: Acute UTI -Had been treated for twice with Levaquin, however, is Levaquin resistant -UA relatively dirty, with concerns for continued current UTI urine culture with E coli, change from Imipenem to Zosyn finish 5 more days of Augmentin on discharge if she can tolerate (4) Liver mass: -CT noted enlarging R lobe hepatic mass measuring 10 cm and slight progression in intrahepatic biliary ductal dilatation. -Had 2 biliary stent placement by Dr. Machuca on 02/05/19 -Replaced on 07/12/19 -Elevated LFTs likely secondary to intermittent hemobilia vs biliary stent occlusions -Per record review, patients liver mass secondary to Hepatocellular Carcinoma per Dr. Candelaria's ([facility] heme/onc) -GI Dr. Machuca recommends no further ERCP or stenting, recommends palliative approach plan for home hospice, medications discontinued if no role for pain control follow up with home hospice on day of discharge (5) Colon cancer: h/o colon cancer (6) Chronic kidney disease, stage 3a: (7) Parkinson disease: -Continue Sinemet (8) Depression: -Continue Venlafaxine (9) Diabetes mellitus, type 2: -SSI with Lantus 14u QD -Continue ASA -Hold Lipitor (10) Hypertension: -held Coreg -Continue Imdur (11) Sepsis: Patient treated on antibiotics. Total Time Total Time Spent Total Time Spent (In Minutes): 32 minutes Total Time Includes: Examination of the Patient, Discharge Planning, Medication Reconciliation and Other (long discussion with daughter at the bedside, 20 minutes) Discharge Plan Discharge Items Patient Disposition: Hospice - Home Reason For Visit: UTI, ABDOMINAL PAIN Discharge Diagnosis: Hepatocellular carcinoma Condition on Discharge: Fair Activity: As commented below Activity Comment: primarily bedrest Bathing Comment: sponge bath as needed Weightbearing: Full weightbearing Non-emergency contact: Primary Care Provider Call non-emergency contact if: you have any medication questions, your symptoms worsen and your pain is not controlled Follow-up/Referrals: Krishna Villanueva [Primary Care Provider] - Diet: Regular Addtl Attending Provider Instructions: Medications: - OxyContin and Oxycodone: continue to use these for pain control - Zofran: use as needed for any nausea - Augmentin: take twice a day for 5 more days to complete treatment of cholangitis and UTI if it causes nausea then it is okay to stop prior to 5 days Enlarging hepatocellular carcinoma, biliary duct obstruction, suspected cholan gitis, E coli UTI, profound weakness biliary stents placed by Dr. Machuca, however, bilirubin trending up despite the stents poor prognosis, GI says there is nothing more that can be done for obs truction, recommend hospice focus on symptom control with OxyContin and Oxycodone encourage eating and drinking for comfort but patient will likely eat and drink less over coming days/weeks very weak, can encourage her to get up but will likely be bedbound, require 24 hour care at home hospice services established, contact them for any immediate needs or concerns Pending Studies at Discharge: No Stand-Alone Forms: My [facility] Medications and DC Order Prescriptions: New oxycodone [OxyContin] 20 mg Tablet,Oral Only,Ext.Rel.12 Hr 20 mg PO Q12H 30 Days Qty: 60 RF: 0 amoxicillin-pot clavulanate [Augmentin] 875-125 mg tablet 1 tab PO Q12H Qty: 10 RF: 0 Continued pantoprazole 40 mg Tablet,Delayed Release (Dr/Ec) 40 mg PO QAM RF: 0 Tresiba FlexTouch U-200 200 unit/mL (3 mL) Insulin Pen 22 unit SUBCUT QAM RF: 0 Fiasp FlexTouch U-100 Insulin 100 unit/mL (3 mL) Insulin Pen See Rx Instructions .ROUTE .COMPLEX RF: 0 polyethylene glycol 3350 [Miralax] 17 gram Powder In Packet 17 g PO DAILY Qty: 30 RF: 0 carbidopa-levodopa 50-200 mg tablet extended release 1 tab PO TID RF: 0 melatonin 3 mg Tablet 3 mg PO HS PRN (Reason: Sleep) RF: 0 nystatin 100,000 unit/gram Powder 1 applic TOPICAL BID RF: 0 pregabalin [Lyrica] 25 mg Capsule 25 mg PO QAM RF: 0 sennosides [Senokot] 8.6 mg tablet 17.2 mg PO HS RF: 0 acetaminophen [Tylenol] 325 mg Tablet 650 mg PO QID PRN (Reason: Mild Pain (Scale Score 1-4)) RF: 0 ondansetron 4 mg Tablet,Disintegrating 4 mg PO TID PRN (Reason: Nausea) RF: 0 pregabalin [Lyrica] 50 mg capsule 50 mg PO HS RF: 0 venlafaxine 37.5 mg capsule,extended release 24hr 37.5 mg PO DAILY RF: 0 oxycodone 5 mg Tablet 5 mg PO Q6 PRN (Reason: Pain) 20 Days Qty: 60 RF: 0 Discontinued carvedilol 6.25 mg Tablet 6.25 mg PO BIDM RF: 0 folic acid 1 mg Tablet 1 mg PO DAILY RF: 0 atorvastatin 40 mg Tablet 40 mg PO DAILY RF: 0 isosorbide mononitrate 30 mg Tablet Extended Release 24 Hr 30 mg PO DAILY RF: 0 aspirin [Aspirin Low Dose] 81 mg Tablet,Delayed Release (Dr/Ec) 81 mg PO QAM RF: 0 ferrous sulfate 325 mg (65 mg iron) Tablet 325 mg PO BID RF: 0 nitroglycerin [Nitrostat] 0.4 mg Tablet, Sublingual 0.4 mg sublingual PRN PRN (Reason: chest pain) Qty: 30 RF: 0 Discharge Orders: Discharge Order (Routine); Ordered 07/16/19 Ordered By: Juan Shoemkaer Admission Data Admit Date/Time: 07/11/19 23:35 Attending Provider: Juan Shoemaker Admit Provider: Beronica Mccollum Primary Care Provider: Krishna Villanueva Other Providers: Beronica Mccollum ; Emmanuel Lua ; Ellis Machuca ; Tiffani Gandhi Other Interventions: Discharge Summary Assessment (RN) Last Done: 07/16/19 10:17 DC Date/Time DO NOT enter until pt leaves facility: 07/16/19 10:45 Coding Level of Care Code D/C Day Management >30 mins Diagnoses Common bile duct obstruction K83.1 Cholangitis K83.09 Acute UTI N39.0 Liver mass R16.0 Colon cancer C18.9 Chronic kidney disease, stage 3a N18.3 Parkinson disease G20 Depression F32.9 Diabetes mellitus, type 2 E11.69; Z79.4 Diabetes mellitus complication status: with other specified complication Diabetes mellitus custodial insulin use: with custodial use Hypertension I10 Hypertension type: essential hypertension Sepsis A41.9
== END 2019-07-16 10:45 | disposition hospice, home (50) | DRG 445 ==
LOC: ED 18:14 → SUATTDRO 23:35 → 2N 23:35